=== PATIENT | male | born 1960 | race Caucasian/White ===

== ENCOUNTER 2018-05-23 10:30 | Outpatient (RCR) | payer OTHER, SELFPAY ==
--- NOTE | 2018-05-09 13:07 | HP.PTEVAL_ITS ---
Patient's Visit Information WALDO MURRAY is a 58 year old M referred to Physical Therapy by Joi Gill with a diagnosis of foot pain. Date of Evaluation: 05/09/18 Physical Therapist: George Whittaker, PT, - Visit Plan Frequency: 1x/Week Duration: 2 Weeks Plan: fit orthotics on next visit and edu pt on self and orthotic care - Subjective Subjective: Pt reports he has had orthotics for years. Pt reports if he doesnt wear orthotics, his LB becomes sore. Pt reports he has had diabetes for about 10 years. Pt reports the orthotics he is currently wearing are old and falling apart. Pt reports he is sore in B knees, and believes it is due to his orthotics wearing down. 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 Pt reports he is not limited with activity secondary to his feet. B foot pain is currently rated at 3/10 - Pain B feet Pain Intensity (Out of 10): 3 Pain Intensity Range: 3 - Objective Neuro: B LE sensation is WNL to light touch. B achilles reflex= 2/3. ROM: B ankle DF ROM is 5 degrees. MMT: B ankle s are 5/5 throughout. Gait: Pt ambulates with early pronation in stance phase. Foot posture: Pt stands with B midfoot and rearfoot pronation - Goals Goal 1:: fit orthotics appropriately on next visit Goal Time Frame: 1 Week - Rehabilitation Potential Physical Therapy Diagnosis: B foot pain secondary to pes planus Rehabilitation Potential: Excellent - Anticipated Interventions Patient/Client Instruction: Educate patient on: Condition, Plan of Care For the Purpose of:: To improve self management Orthotics: Shoe insert For the Purpose of:: To decrease pain Thank you for the opportunity to evaluate your patient. For Medicare and Medicare HMO plans, please review the plan of care and approve it. It will need to be FAXED BACK to us at [phone] for Medicare purposes. Please let me know if there are questions or concerns regarding this plan of care. Physician Signature: Date:
--- NOTE | 2018-05-23 10:46 | HP.PTDCSUM ---
HP - PT D/C Summary It has been my pleasure to treat WALDO MURRAY under orders from Joi Gill, for the diagnosis of foot pain for a total of 2 visit(s). Discharge Date: Please see the following information for a summary of their discharge status. - Subjective Subjective: Just need foot orthotics. No pain. Getting orthotics for long standing foot problems. Has low arches. - Pain B feet Pain Intensity (Out of 10): 3 - Objective Objective/Function: Good fit in shoe today and understands their use well as he has had a pair in the past. - Goals Goal 1:: fit orthotics appropriately on next visit - Plan Plan: D/C - D/C Information If there are questions or concerns regarding this patient's physical therapy, please feel free to call me at [phone]. Thank you for the referral of this patient. Sincerely, Binu Be, DPT, OC
== END 2018-05-23 19:00 | disposition home or self-care (01) ==
LOC: PT 10:30
PROVIDERS: Family Provider Internal Medicine; PCP Internal Medicine; Referring Provider Internal Medicine; Visit Provider Internal Medicine
DX: E11.9 Type 2 diabetes mellitus without complications (principal); M72.2 Plantar fascial fibromatosis
CPT/HCPCS: 97161; 97760; 97763

== ENCOUNTER 2018-10-23 23:52 | Inpatient (IN) | payer OTHER, SELFPAY ==
[2018-10-23 23:53] VITALS: BP 158/102; PULSE 77; RESP 18; TEMP 36.3; O2SAT 96; BMI 38.7
--- NOTE | 2018-10-23 23:57 | EKG12_ITS ---
Test Reason : CP Blood Pressure : / mmHG Vent. Rate : 076 BPM Atrial Rate : 076 BPM P-R Int : 152 ms QRS Dur : 098 ms QT Int : 370 ms P-R-T Axes : 025 -30 009 degrees QTc Int : 416 ms Sinus rhythm with occasional Premature ventricular complexes Left axis deviation Voltage criteria for left ventricular hypertrophy Nonspecific ST abnormality Abnormal ECG Confirmed by NELIA HAILE, JAYY ([id number]), photo editor WILBERT ZARAGOZA ([id number]) on 10/25/2018 8:22:52 AM Referred By: Gladys Marin Confirmed By:JAYY PICKENS MD
[2018-10-24] VITALS (35 sets, daily range): BP systolic 103–167; BP diastolic 73–106; PULSE 68–778; RESP 10–25; TEMP 36.3–36.8; O2SAT 96–100; BMI 36.8; BMI 36.9
--- NOTE | 2018-10-24 | RAD_ITS ---
STUDY: X-RAY CHEST REASON FOR EXAM: Male, 58 years old. Chest pain TECHNIQUE: Frontal view COMPARISON: None. FINDINGS: The lungs are clear and expanded. There is no demonstrated pleural abnormality. Normal size heart. Normal mediastinum and brenda. Normal visualized pulmonary arteries. Normal visualized aortic arch and descending thoracic aorta. Normal visualized thoracic spine. Normal visualized ribs, clavicles, and shoulders. There is no demonstrated abnormality of the visualized soft tissue structures of the upper abdomen. RAD/Chest 1 View (Portable) IMPRESSION: Normal x-ray examination of the chest. Electronically Signed: Himanshu Cheema MD at 1:18 EDT , Service support ,
[2018-10-24 00:18] LABS: Absolute Lymphocyte Count 3.32 X10^3/ul (0.83-4.51); Absolute Neutrophil Count 7.9 X10^3/uL (2.0-7.7); Basophil# 0.06 X10^3/uL; Basophil% 0.5 % (0-1); Eosinophils% 2.4 % (0-5); Hematocrit 42.3 % (40-54); Hemoglobin 13.3 g/dl (13.0-16.5); Lymphocyte # 3.32 X10^3/ul (4.0); Lymphocyte % 26.5 % (19-41); Mean Corp Hgb Conc 31.4 g/gl (32-36); Mean Corpuscular Volume 76.4 fL (80-94); Mean Platelet Vol. 10.1 fl (6.2-12.0); Monocyte# 0.96 X10^3/uL; Monocyte% 7.7 % (0-10); Neutrophil # 7.88 X10^3/uL (2.7-7.7); Neutrophil % 62.7 % (47-70); Platelet Count 372 K/mm3 (150-450); Red Blood Count 5.54 M/mm3 (4.6-6.2); White Blood Count 12.5 K/mm3 (4.4-11.0)
[2018-10-24 00:21] LABS: POSITIVE COUNT NO; POSITIVE DIFFERENTIAL NO; POSITIVE MORPHOLOGY NO
--- NOTE | 2018-10-24 00:21 | EKG12_ITS ---
Test Reason : CP Blood Pressure : / mmHG Vent. Rate : 070 BPM Atrial Rate : 070 BPM P-R Int : 158 ms QRS Dur : 098 ms QT Int : 380 ms P-R-T Axes : 015 -29 -02 degrees QTc Int : 410 ms Normal sinus rhythm Voltage criteria for left ventricular hypertrophy Nonspecific ST abnormality Abnormal ECG Confirmed by NELIA HAILE, JAYY ([id number]), medical transcription editor WILBERT ZARAGOZA ([id number]) on 10/25/2018 8:23:10 AM Referred By: Gladys Marin Confirmed By:JAYY PICKENS MD
[2018-10-24 00:29] LABS: Anion Gap 9 (5-15); BUN 9 mg/dL (7-18); BUN/Creat Ratio 9.5 RATIO (10-20); Calcium,Total 9.2 mg/dL (8.5-10.1); Chloride 105 mmol/L (98-107); Creatinine, Serum 0.94 mg/dL (0.70-1.30); EST Glomerular Filtration Rate 88 mL/min (>60); Est Glom Filt Rate - Afr Amer 106 mL/min (>60); Glucose 130 mg/dL (74-106); Potassium 3.9 mmol/L (3.5-5.1); Sodium Level 138 mmol/L (136-145)
[2018-10-24] MEDS: Aspirin 81 MG TAB.CHEW 324 MG PO (00:35)
--- NOTE | 2018-10-24 01:08 | PCM.HP.STD ---
Problem List (1) ACS (acute coronary syndrome) Status: Acute (2) Obesity (BMI 30-39.9) Status: Chronic (3) Diabetes mellitus, type II Status: Chronic Qualifiers: Diabetes mellitus intermediate insulin use: without exterminator use Diabetes mellitus complication status: with unspecified complications Qualified Code(s): E11.8 - Type 2 diabetes mellitus with unspecified complications (4) GERD (gastroesophageal reflux disease) Status: Chronic Qualifiers: Esophagitis presence: esophagitis presence not specified Qualified Code(s): K21.9 - Gastro-esophageal reflux disease without esophagitis (5) Former tobacco use Status: Chronic History of Present Illness Date of Admission: 10/24/18 Chief Complaint: Chest pain The patient is a 58 y/o M w/ PMHx: Obesity, Diabetes mellitus type II, GERD, Former Tobacco use, Hx Colon CA s/p partial colectomy w/ ileostomy w/ reversal who presents to the [facility] ED on 10/24/18 with history of onset chest discomfort, pressure like sensation midsternal/right chest with radiation toward the back with stabbing sensation discomfort in his back over the last 2-3 weeks, worse with any exertion but onset at rest also with notable exertional dyspnea with onset on evening prior to ED presentation, ~ 45 minutes prior to arrival, similar symptoms however with radiation to BL UE paresthesias as well with notable dyspnea, nausea without emesis and diaphoresis. He notes the severity was initially 10 out of 10 but upon repeat evaluation rated the discomfort 2-3 out of 10. He states that over the last several months his diet and activity levels have decreased. Over the last 4 weeks he states because of discomfort which he felt initially was musculoskeletal he has been sleeping upright in his chair at night instead of in the bed. He also notes recent difficulties with erectile dysfunction. Work-up in the ED included T 97.4, heart rate 77, BP initially 158/102 with repeat 125/85, respiratory rate 18, 96% on room air, BC with WBC 12.5, hemoglobin 13.3, platelets 372 with left shift, BMP with glucose 130, troponin 0.277, EKG w/ elevated isolated in III with non-specific changes with similar repeat EKG, CXR w/ no acute cardiopulmonary findings. In the ED patient administered 324 mg p.o. aspirin x1, therapeutic Lovenox 120 mg subcu x1, Brilinta 180 mg p.o. x1, nitroglycerin sublingual regimen administered as well as morphine patient then transition to nitroglycerin drip. Dr. Miranda consulted per ED. Past Medical History Past Medical History (Chronic Problems): Chronic Problems Obesity (BMI 30-39.9) (Chronic) Diabetes mellitus, type II (Chronic) RLS (restless legs syndrome) (Chronic) GERD (gastroesophageal reflux disease) (Chronic) Former tobacco use (Chronic) Allergies No Known Allergies Allergy (Verified 10/23/18 23:53) Home Medications: Ambulatory Orders Medication Instructions Recorded Ergocalciferol [Vitamin D] 50,000 mg PO QWEEK 10/24/18 Latanoprost 0.005 drop EACH EYE QHS 10/24/18 Metformin HCl [Glucophage] 500 mg PO BIDCM 10/24/18 Multivitamin [Multiple Vitamins] 1 each PO DAILY 10/24/18 Pantoprazole Sodium [Protonix] 40 mg PO DAILY 10/24/18 Surgical History: - - Partial colectomy with ileostomy with reversal, postsurgical hernia repair. Psychiatric History: No pertinent psych hx Lives: Spouse/ Significant Other Smoking Status: Former smoker - She quit nearly 30 years prior 3 prior to this cigarette tobacco usage. Tobacco Use: Non-smoker Alcohol: Occasional Drugs: None - *Family History Maternal History Items: - - Patient notes a maternal family history of hypertension well with autoimmune hepatitis. Paternal History Items: Unknown - She notes that he does not know his paternal family history. Review of Systems Constitutional: Reports: Malaise, Weakness, Fatigue. Denies: Chills, Fever, Weight Change HEENT: Denies: Head Aches, Sinus Congestion, Sinus Drainage Cardiovascular: Reports: Chest Pain, Chest Pressure. Denies: Chest Tightness, Heaviness, Light Headedness, Orthopnea, Palpitations, Syncope Respiratory: Reports: Shortness of Breath, Shortness of breath at rest, Shortness of breath upon exertion. Denies: Cough, Sputum production Gastrointestinal: Reports: Nausea. Denies: Abdominal Pain, Vomiting Genitourinary: Denies: Dysuria Musculoskeletal: Reports: Back Pain, Joint Pain, Neck Pain, Shoulder Pain. Denies: Joint Tenderness Skin: Denies: Rash, Wounds Neurological: Denies: Numbness, Tingling, Focal weakness Psychiatric: Denies: Anxiety, Depression, Homicidal Ideations, Suicidal Ideations Hematologic/ Lymphatic: Denies: Easy Bruising, Easy Bleeding VTE Information - Inpt Only VTE Present on Admission: No VTE Mechan Device Prophylaxis: SCD's VTE Pharm Prophylaxis ordered?: Yes Patient Problems: Active and Suspected Problems ACS (acute coronary syndrome) (Acute) Subjective: Seated upright in ED bed, notes chest discomfort has improved since presentation. Objective: Physical Examination: General: awake, alert, oriented x 3 and cooperative, seated upright in ED bed, fatigued appearance, chest discomfort is improved since initial presentation. Skin: normal color, turgor, no icterus, cyanosis. HEENT: AT/NC, EOMI, PERRLA, only dry MM, no carotid bruits or JVD noted. Lungs: CTA bilaterally, moderate effort, mild decrease BL bases, no rales, ronchi or wheezing. Heart: Regular rate and rhythm; no gallop, rub audible. Abdomen: soft, obese, NTTP, ND, normal BS, no HSM. Extremities: no cyanosis, clubbing, or edema. Neurological: patient awake, alert, oriented x 3; cognitive function intact; pupils equally reactive to light and accomodation; cranial nerves II-XII grossly normal, moving all 4 extremities, no focal deficits, strength moderately to severely globally decreased secondary to acute presentation. Psychiatric: affect appears fatigued, mildly anxious, no acute evidence of depressive feelings. - Physical Exam Vital Signs Temp Pulse Resp BP Pulse Ox 97.4 F L 90 18 125/85 H 96 10/23/18 23:53 10/24/18 00:41 10/23/18 23:53 10/24/18 01:00 10/24/18 00:36 Oxygen Delivery Method Room Air Weight: 269 lb 12.8 oz Body Mass Index (BMI) 38.7 Laboratory Tests Past 24 Hrs 10/24/18 10/24/18 00:05 00:05 WBC 12.5 H RBC 5.54 Hgb 13.3 Hct 42.3 MCV 76.4 L MCH 24.0 L MCHC 31.4 L RDW 16.0 H RDW Differential 44.0 H Plt Count 372 MPV 10.1 Immature Gran % (Auto) 0.200 Neut % (Auto) 62.7 Lymph % (Auto) 26.5 Ward % (Auto) 7.7 Eos % (Auto) 2.4 Baso % (Auto) 0.5 Absolute Neuts (auto) 7.9 H Absolute Lymphs (auto) 3.32 Total Counted Not Reportable Sodium 138 Potassium 3.9 Chloride 105 Carbon Dioxide 24.0 Anion Gap 9 BUN 9 Creatinine 0.94 Estim Creat Clear Calc 90.60 Est GFR (MDRD) Af Amer 106 Est GFR (MDRD) Non-Af 88 BUN/Creatinine Ratio 9.5 L Glucose 130 H Calcium 9.2 Troponin I 0.277 H Assessment/Plan All Active Problems ACS (acute coronary syndrome) (Acute) The patient is a 58 y/o M w/ PMHx: Obesity, Diabetes mellitus type II, GERD, Former Tobacco use, Hx Colon CA s/p partial colectomy w/ ileostomy w/ reversal who presents to the [facility] ED on 10/24/18 with history of onset chest discomfort, pressure like sensation midsternal/right chest with radiation toward the back with stabbing sensation discomfort in his back over the last 2-3 weeks, worse with any exertion but onset at rest also with notable exertional dyspnea with onset on evening prior to ED presentation, ~ 45 minutes prior to arrival, similar symptoms however with radiation to BL UE paresthesias as well with notable dyspnea, nausea without emesis and diaphoresis. (1) Chest Pain secondary to ACS, NSTEMI: Work-up in the ED included T 97.4, heart rate 77, BP initially 158/102 with repeat 125/85, respiratory rate 18, 96% on room air, CBC with WBC 12.5, hemoglobin 13.3, platelets 372 with left shift, BMP with glucose 130, troponin 0.277, EKG w/ elevated isolated in III with non-specific changes with similar repeat EKG, CXR w/ no acute cardiopulmonary findings. In the ED patient administered 324 mg p.o. aspirin x1, therapeutic Lovenox 120 mg subcu x1, Brilinta 180 mg p.o. x1, nitroglycerin sublingual regimen administered as well as morphine patient then transition to nitroglycerin drip. Dr. Miranda consulted per ED. Will admit to PCU, maintain on a monitored bed, continue serial cardiac enzymes and EKGs. Obtain magnesium level upon admission. Continue therapeutic lovenox. Continue medical management w/ asa, high dose statin w/ AM FLP. Cardiology consulted, plan for cardiac catheterization. Maintain NPO after midnight. ASA, morphine. Continued on NG drip per cardiology request. (2) Diabetes mellitus type II: Hold oral home regimen, heme globin A1c pending, n.p.o. status currently but resume ADA once appropriate, accu checks w/ ISS, nutrition consultation for education and teaching.. (3) Obesity: Weight loss and lifestyle changes encouraged, nutrition consulted. (4) History of colon cancer: That is post partial colectomy with ileostomy with eventual reversal, originally diagnosed in June 2017, remission. (5) Former tobacco use: Encouraged continued tobacco cessation. (6) GERD: PPI. (7) DVT Prophylaxis: SCDs, therapeutic lovenox. Code Visit Inpatient E&M: 50334 Init Hosp L3
[2018-10-24] MEDS: Morphine 4 MG/ML Syringe IV (01:13)
[2018-10-24] MEDS: Ondansetron 4 MG/2 ML Vial IV (01:14)
--- NOTE | 2018-10-24 01:14 | ED.VISSUMM ---
- ER Visit Summary Date of Service: 10/24/18 Chief Complaint: Chest pain History of Present Illness: The patient is a 58 M who presents with chest pain. His current episode began 1-1-1/2 hours before presentation. He describes it as a heaviness in the center of the chest radiating through to the back. It was 10 out of 10 at home but is currently 4 out of 10. No exacerbating or relieving factors. He has noticed intermittent similar chest pain over the last 2 weeks. This usually lasts 1-1/2 hours. He has also had some dyspnea on exertion. Tonight his pain was worse and he also had diaphoresis nausea and numbness in both arms. He has no known history of coronary disease. He is diabetic. Physical Examination: Initial blood pressure 158/102 vitals otherwise unremarkable No distress Heart regular rate and rhythm Lungs are clear Abdomen soft Extremities nontender symmetric palpable radial pulses Test Results: EKG shows sinus rhythm with a PVC. There are nonspecific ST changes. There is slight isolated elevation in lead III with biphasic T wave in lead III. He does not have EKG changes definitive for STEMI. His repeat EKG is unchanged does not show progression. It is notable for troponin of 0.277. Chest x-ray shows no acute disease. Emergency Department Course and Treatment: Patient was given aspirin and sublingual nitroglycerin. He really had no change in symptoms but his pain remains mild. His symptoms are certainly concerning. I spoke to cardiology photonics engineering technologist who also recommended Brilinta subcutaneous Lovenox and nitroglycerin infusion. Patient was discussed with the hospitalist and admitted. Treatment Plan: [] Disposition: Admit Impression: NSTEMI This note was generated with [employer] dictation software. It may contain incorrect words, spelling, and punctuation that were not noted in review of the chart prior to signing ED Disposition - Plan for ED Patient: Referrals: Joi Gill MD [Primary Care Provider] -
--- NOTE | 2018-10-24 01:17 | ED.DCSUM_ITS ---
- ER Visit Summary Date of Service: 10/24/18 Chief Complaint: Chest pain History of Present Illness: The patient is a 58 M who presents with chest pain. His current episode began 1-1-1/2 hours before presentation. He describes it as a heaviness in the center of the chest radiating through to the back. It was 10 out of 10 at home but is currently 4 out of 10. No exacerbating or relieving factors. He has noticed intermittent similar chest pain over the last 2 weeks. This usually lasts 1-1/2 hours. He has also had some dyspnea on exertion. Tonight his pain was worse and he also had diaphoresis nausea and numbness in both arms. He has no known history of coronary disease. He is diabetic. Physical Examination: Initial blood pressure 158/102 vitals otherwise unremarkable No distress Heart regular rate and rhythm Lungs are clear Abdomen soft Extremities nontender symmetric palpable radial pulses Test Results: EKG shows sinus rhythm with a PVC. There are nonspecific ST changes. There is slight isolated elevation in lead III with biphasic T wave in lead III. He does not have EKG changes definitive for STEMI. His repeat EKG is unchanged does not show progression. It is notable for troponin of 0.277. Chest x-ray shows no acute disease. Emergency Department Course and Treatment: Patient was given aspirin and sublingual nitroglycerin. He really had no change in symptoms but his pain remains mild. His symptoms are certainly concerning. I spoke to cardiology mortgage operations manager who also recommended Brilinta subcutaneous Lovenox and nitroglycerin infusion. Patient was discussed with the hospitalist and admitted. Treatment Plan: [] Disposition: Admit Impression: NSTEMI This note was generated with [employer] dictation software. It may contain incorrect words, spelling, and punctuation that were not noted in review of the chart prior to signing ED Disposition - Plan for ED Patient: Referrals: Joi Gill MD [Primary Care Provider] -
[2018-10-24] MEDS: TICAGRELOR 90 MG TABLET 180 MG PO (01:25)
--- NOTE | 2018-10-24 02:00 | ED.RN ---
pt concerned with receiving lovenox in abd d/t massive hernia surgery with mesh. discussed with darnell from pharmacy, no other alternatives, discussed with Dr. Cosme as Dr. Kuhn was unavailable and he suggested inner thigh or buttocks.
[2018-10-24] MEDS: Enoxaparin 120 MG/0.8 ML Syringe SC (02:02)
--- NOTE | 2018-10-24 02:26 | EKG12_ITS ---
Test Reason : POST PCI Blood Pressure : / mmHG Vent. Rate : 065 BPM Atrial Rate : 065 BPM P-R Int : 154 ms QRS Dur : 096 ms QT Int : 396 ms P-R-T Axes : 016 -28 -08 degrees QTc Int : 411 ms Normal sinus rhythm Normal ECG When compared with ECG of 24-OCT-2018 05:33, MANUAL COMPARISON REQUIRED, DATA IS UNCONFIRMED Confirmed by TIMA GUERRERO ([id number]), makeup editor JESSICA PIPER ([id number]) on 10/28/2018 5:10:26 PM Referred By: Gladys Marin Confirmed By:TIMA GUERRERO
--- NOTE | 2018-10-24 02:26 | ECHOCS_ITS ---
Reason For Study: CAD/ASHD Procedure This was a 2D Doppler, Color Flow transthoracic echocardiogram. Exam performed portable in patient room. Left Ventricle Mild concentric left ventricular hypertrophy. The estimated ejection fraction is 65 %. Stage 1 diastolic dysfunction. No regional wall motion abnormalities noted. Right Ventricle Normal size and thickness. Normal systolic function. Atria Normal left atrium. Normal right atrium. Normal atrial septum. Mitral Valve The mitral valve is structurally normal. No prolapse or stenosis seen. Tricuspid Valve The tricuspid valve is not well visualized. Unable to estimate RV systolic pressure due to inadequate jet, pulmonary artery pressure probably normal. Aortic Valve Normal aortic valve. Mild focal aortic valve thickening. There is no aortic stenosis. Pulmonic Valve The pulmonic valve is not well visualized. Great Vessels Normal aortic root. Normal arch. Normal inferior vena cava. Inferior vena cava collapse with sniff. Pericardium/Pleural No pericardial effusion. Medication Diluted definity 3.5ml given slow IV push to enhance endocardial definition. MMode/2D Measurements & Calculations LVIDd: 6.0 cm IVSd: 1.2 cm Ao root diam: 3.7 cm LVIDs: 4.4 cm LVPWd: 1.3 cm FS: 26.3 % LAV(MOD-bp): 58.0 ml LA A4 area: 18.3 cm2 LA dimension(2D): 3.8 cm LAV(MOD-bp) Indexed: 24.5 ml/m2 LAV(MOD-sp2): 62.3 ml LAV(MOD-sp4): 54.0 ml RA A4 area: 16.9 cm2 Doppler Measurements & Calculations MV E max russ: 62.5 cm/sec Lat Peak E' Russ: 13.2 cm/sec Med Peak E' Russ: 6.3 cm/sec MV A max russ: 78.6 cm/sec E/E' lat: 4.8 E/E' med: 9.9 MV E/A: 0.80 Ao V2 max: 141.4 cm/sec LV V1 max: 93.2 cm/sec PA V2 max: 96.2 cm/sec Ao max P.0 mmHg LV V1 max P.5 mmHg Interpretation Summary The estimated ejection fraction is 65 %. Stage 1 diastolic dysfunction. Unable to estimate RV systolic pressure due to inadequate jet, pulmonary artery pressure probably normal. The study was technically difficult. Contrast injection was performed. Ordering Physician: Gladys Marin Referring Physician: Gladys Gill Performed By: Oma Stewart RDCS, RVT
[2018-10-24 02:43] LABS: Magnesium 2.2 mg/dL (1.6-2.6)
[2018-10-24] MEDS: 0.9% Normal Saline 1,000 ML 125 ML IV (03:12)
[2018-10-24 06:14] LABS: Hematocrit 38.5 % (40-54); Mean Corp Hgb Conc 31.2 g/gl (32-36); Mean Corpuscular Hgb 24.1 pg (27.0-32.0); Mean Corpuscular Volume 77.3 fL (80-94); Mean Platelet Vol. 10.1 fl (6.2-12.0); Platelet Count 342 K/mm3 (150-450); RBC Distribution Width CV 16.1 % (11.6-14.6); RBC Distribution Width SD 44.5 fl (35.1-43.9); Red Blood Count 4.98 M/mm3 (4.6-6.2)
[2018-10-24 06:20] LABS: Scan Indicated on CBC? Y/N NO
[2018-10-24 06:23] LABS: Partial Thromboplast Time 42.2 Seconds (24.1-36.2)
[2018-10-24 06:34] LABS: International Normalized Ratio 1.1; Prothrombin Time (Protime)PT. 13.7 SECONDS (11.7-14.9)
[2018-10-24] MEDS: Aspirin E.C. 81 MG Tablet PO (06:36)
[2018-10-24 06:48] LABS: ALB/GLOB Ratio 0.9 RATIO (0.9-2.4); AST(SGOT) 38 U/L (15-37); Alanine Aminotransfer ALT/SGPT 37 U/L (16-61); Albumin, Serum 3.3 g/dL (3.2-5.0); Alkaline Phosphatase 80 U/L (45-117); Anion Gap 10 (5-15); BUN 10 mg/dL (7-18); BUN/Creat Ratio 10.3 RATIO (10-20); Calcium,Total 8.7 mg/dL (8.5-10.1); Chloride 106 mmol/L (98-107); Cholesterol 185 mg/dL (200); Creatinine, Serum 0.98 mg/dL (0.70-1.30); EST Glomerular Filtration Rate 84 mL/min (>60); Est Glom Filt Rate - Afr Amer 102 mL/min (>60); Estimated Creatinine Clearance 89.64 ml/min; Globulin 3.5 g/dL (2.2-4.2); Glucose 124 mg/dL (74-106); High Density Lipoprotein 42 mg/dL; Potassium 4.6 mmol/L (3.5-5.1); Protein, Total 6.8 g/dL (6.4-8.2); Triglycerides 155 mg/dL; Very Low Density Lipoprotein 31 mg/dL (5-40)
--- NOTE | 2018-10-24 06:50 | PCM.CONS.C ---
Reason for Consult Date of Consultation: 10/24/18 Reason for Consultation: Chest discomfort History of Present Illness: The patient is a 58 year old M with no past cardiac history who has been having chest discomfort which she says has been localized for the last few months. Yesterday he started experiencing more chest discomfort associated with diaphoresis and nausea. It was significant enough and across his chest that he decided to present to the emergency room. In the emergency room he had questionable EKG changes as well as mildly elevated troponin and I was called for further evaluation and management. He has had no previous dizziness or diaphoresis no near syncope or syncope he has not had any stress testing in the past. He says that there was previously not an exertional component to it but he has been fatigued. He is currently pain-free. [] Past Medical History Allergies/Adverse Reactions: Allergies No Known Allergies Allergy (Verified 10/23/18 23:53) Home Medications: Ambulatory Orders Medication Instructions Recorded Ergocalciferol [Vitamin D] 50,000 mg PO QWEEK 10/24/18 Latanoprost 0.005 drop EACH EYE QHS 10/24/18 Metformin HCl [Glucophage] 500 mg PO BIDCM 10/24/18 Multivitamin [Multiple Vitamins] 1 each PO DAILY 10/24/18 Pantoprazole Sodium [Protonix] 40 mg PO DAILY 10/24/18 Past Medical History (Chronic Problems): Chronic Problems Obesity (BMI 30-39.9) (Chronic) Diabetes mellitus, type II (Chronic) RLS (restless legs syndrome) (Chronic) GERD (gastroesophageal reflux disease) (Chronic) Former tobacco use (Chronic) Surgical History: - - Partial colectomy with ileostomy with reversal, postsurgical hernia repair. Psychiatric History: No pertinent psych hx - *Family History Maternal History Items: - - Patient notes a maternal family history of hypertension well with autoimmune hepatitis. Paternal History Items: Unknown - She notes that he does not know his paternal family history. Lives: Spouse/ Significant Other Smoking Status: Former smoker - She quit nearly 30 years prior 3 prior to this cigarette tobacco usage. Tobacco Use: Non-smoker Alcohol: Occasional Drugs: None Review of Systems - Review of Systems General: Denies: Fever, Night Sweats, Fatigue HEENT: Denies: Vision Change Cardiovascular: Reports: Chest Discomfort, Chest Discomfort at Rest. Denies: Shortness of Breath, Orthopnea, PND, Peripheral Edema, Palpitations, Lightheadedness, Dizziness, Near Syncope, Syncope Respiratory: Denies: Cough, Sputum Production, Hemoptysis Gastrointestinal: Denies: Hematemesis, Hematochezia, Melena Genitourinary: Denies: Dysuria, Hematuria Skin: Denies: Rash Neurological: Denies: Dizziness Psychiatric: Denies: Anxiety Endocrine: Denies: Unexplained Weight Loss Hematologic/ Lymphatic: Denies: Anemia Subjectve: Pleasant gentleman in no apparent distress Objective: Vital Signs Temp Pulse Resp BP Pulse Ox 97.9 F 78 19 H 126/74 H 98 10/24/18 03:00 10/24/18 05:00 10/24/18 05:00 10/24/18 05:00 10/24/18 05:00 Oxygen Flow Rate (L/min) 2 Oxygen Delivery Method Nasal Cannula Weight: 264 lb 8.875 oz Body Mass Index (BMI) 36.8 Intake and Output for Last 24 Hours 10/22/18 10/23/18 10/24/18 23:59 23:59 23:59 Intake Total 429.6 / 429.6 Balance 429.6 / 429.6 General: Awake, Alert, Oriented x 3 HEENT: PERRL, EOMI, Sclera Non Icteric Neck: Supple, Good ROM, No Lymph Node Enlargement Lungs: Clear to auscultation Cardiovascular: Regular Rhythm, Normal S1, Normal S2, No Murmurs, No Rubs, No Gallops Vascular: No Carotid Bruits, Normal Femoral Pulses, Normal Radial Pulses, Normal Dorsalis Pedal Pulse, Normal Posterior Tibial Pulses Abdomen: Bowel Sounds Present, Soft, Non Tender, No HSM, No Organomegaly, Obese Extremities: No Cyanosis, No Clubbing, No edema Musculoskeletal: No Erythema Skin: No Rashes Lymphatic: No Lymph Node Enlargement Neurological: No Focal Motor or Sensory Deficit Psych/Mental Status: Appropriate 10/24/18 00:05: WBC 12.5 H, RBC 5.54, Hgb 13.3, Hct 42.3, MCV 76.4 L, MCH 24.0 L, MCHC 31.4 L, RDW 16.0 H, RDW Differential 44.0 H, Plt Count 372, MPV 10.1, Immature Gran % (Auto) 0.200, Neut % (Auto) 62.7, Lymph % (Auto) 26.5, [place] % (Auto) 7.7, Eos % (Auto) 2.4, Baso % (Auto) 0.5, Absolute Neuts (auto) 7.9 H, Total Counted Not Reportable 10/24/18 00:05: Sodium 138, Potassium 3.9, Chloride 105, Carbon Dioxide 24.0, Anion Gap 9, BUN 9, Creatinine 0.94, Est GFR (MDRD) Af Amer 106, Est GFR (MDRD) Non-Af 88, BUN/Creatinine Ratio 9.5 L, Glucose 130 H, Calcium 9.2, Troponin I 0.277 H 10/24/18 00:05: Magnesium 2.2 10/24/18 03:22: Troponin I 0.574 H 10/24/18 05:50: WBC 13.0 H, RBC 4.98, Hgb 12.0 L, Hct 38.5 L, MCV 77.3 L, MCH 24.1 L, MCHC 31.2 L, RDW 16.1 H, RDW Differential 44.5 H, Plt Count 342, MPV 10.1 10/24/18 05:50: Sodium 142, Potassium 4.6, Chloride 106, Carbon Dioxide 26.0, Anion Gap 10, BUN 10, Creatinine 0.98, Est GFR (MDRD) Af Amer 102, Est GFR (MDRD) Non-Af 84, BUN/Creatinine Ratio 10.3, Glucose 124 H, Calcium 8.7, Total Bilirubin 0.50, Troponin I 1.100 H*, Triglycerides 155, Cholesterol 185, LDL Cholesterol 112, VLDL Cholesterol 31, HDL Cholesterol 42 10/24/18 05:50: PT 13.7, INR 1.1, APTT 42.2 H Rhythm: EKG: Normal sinus rhythm with subtle ST change in lead III ECHO: Stress Test: Cardiac Cath: PCI: CT Surgery: Holter monitor: EPS: PPM: CXR: Chest CT Scan: Assessment/Plan 1. Non-ST elevation myocardial infarction Patient presents with chest discomfort with subtle EKG changes and has abnormal troponin qualifying as a non-ST elevation myocardial infarction. Would recommend aspirin Patient received Lovenox overnight High intensity statin Ticagrelor Cardiac catheterization this morning. The risk benefits and alternatives have been explained to him he understands and agrees to proceed. 2. Lipid status His lipid status appears to be borderline but with his diabetic status and his current enzyme ender would recommend high intensity statin Diet and exercise have also been emphasized. Thank you for allowing me to participate in the care of your patient. Please don't hesitate to call if any issues arise
--- NOTE | 2018-10-24 06:54 | CON.PCM_ITS ---
Reason for Consult Date of Consultation: 10/24/18 Reason for Consultation: Chest discomfort History of Present Illness: The patient is a 58 year old M with no past cardiac history who has been having chest discomfort which she says has been localized for the last few months. Yesterday he started experiencing more chest discomfort associated with diaphoresis and nausea. It was significant enough and across his chest that he decided to present to the emergency room. In the emergency room he had questionable EKG changes as well as mildly elevated troponin and I was called for further evaluation and management. He has had no previous dizziness or diaphoresis no near syncope or syncope he has not had any stress testing in the past. He says that there was previously not an exertional component to it but he has been fatigued. He is currently pain-free. [] Past Medical History Allergies/Adverse Reactions: Allergies No Known Allergies Allergy (Verified 10/23/18 23:53) Home Medications: Ambulatory Orders Medication Instructions Recorded Ergocalciferol [Vitamin D] 50,000 mg PO QWEEK 10/24/18 Latanoprost 0.005 drop EACH EYE QHS 10/24/18 Metformin HCl [Glucophage] 500 mg PO BIDCM 10/24/18 Multivitamin [Multiple Vitamins] 1 each PO DAILY 10/24/18 Pantoprazole Sodium [Protonix] 40 mg PO DAILY 10/24/18 Past Medical History (Chronic Problems): Chronic Problems Obesity (BMI 30-39.9) (Chronic) Diabetes mellitus, type II (Chronic) RLS (restless legs syndrome) (Chronic) GERD (gastroesophageal reflux disease) (Chronic) Former tobacco use (Chronic) Surgical History: - - Partial colectomy with ileostomy with reversal, postsurgical hernia repair. Psychiatric History: No pertinent psych hx - *Family History Maternal History Items: - - Patient notes a maternal family history of hypertension well with autoimmune hepatitis. Paternal History Items: Unknown - She notes that he does not know his paternal family history. Lives: Spouse/ Significant Other Smoking Status: Former smoker - She quit nearly 30 years prior 3 prior to this cigarette tobacco usage. Tobacco Use: Non-smoker Alcohol: Occasional Drugs: None Review of Systems - Review of Systems General: Denies: Fever, Night Sweats, Fatigue HEENT: Denies: Vision Change Cardiovascular: Reports: Chest Discomfort, Chest Discomfort at Rest. Denies: Shortness of Breath, Orthopnea, PND, Peripheral Edema, Palpitations, Lightheadedness, Dizziness, Near Syncope, Syncope Respiratory: Denies: Cough, Sputum Production, Hemoptysis Gastrointestinal: Denies: Hematemesis, Hematochezia, Melena Genitourinary: Denies: Dysuria, Hematuria Skin: Denies: Rash Neurological: Denies: Dizziness Psychiatric: Denies: Anxiety Endocrine: Denies: Unexplained Weight Loss Hematologic/ Lymphatic: Denies: Anemia Subjectve: Pleasant gentleman in no apparent distress Objective: Vital Signs Temp Pulse Resp BP Pulse Ox 97.9 F 78 19 H 126/74 H 98 10/24/18 03:00 10/24/18 05:00 10/24/18 05:00 10/24/18 05:00 10/24/18 05:00 Oxygen Flow Rate (L/min) 2 Oxygen Delivery Method Nasal Cannula Weight: 264 lb 8.875 oz Body Mass Index (BMI) 36.8 Intake and Output for Last 24 Hours 10/22/18 10/23/18 10/24/18 23:59 23:59 23:59 Intake Total 429.6 / 429.6 Balance 429.6 / 429.6 General: Awake, Alert, Oriented x 3 HEENT: PERRL, EOMI, Sclera Non Icteric Neck: Supple, Good ROM, No Lymph Node Enlargement Lungs: Clear to auscultation Cardiovascular: Regular Rhythm, Normal S1, Normal S2, No Murmurs, No Rubs, No Gallops Vascular: No Carotid Bruits, Normal Femoral Pulses, Normal Radial Pulses, Normal Dorsalis Pedal Pulse, Normal Posterior Tibial Pulses Abdomen: Bowel Sounds Present, Soft, Non Tender, No HSM, No Organomegaly, Obese Extremities: No Cyanosis, No Clubbing, No edema Musculoskeletal: No Erythema Skin: No Rashes Lymphatic: No Lymph Node Enlargement Neurological: No Focal Motor or Sensory Deficit Psych/Mental Status: Appropriate 10/24/18 00:05: WBC 12.5 H, RBC 5.54, Hgb 13.3, Hct 42.3, MCV 76.4 L, MCH 24.0 L , MCHC 31.4 L, RDW 16.0 H, RDW Differential 44.0 H, Plt Count 372, MPV 10.1, Immature Gran % (Auto) 0.200, Neut % (Auto) 62.7, Lymph % (Auto) 26.5, [place] % (Auto) 7.7, Eos % (Auto) 2.4, Baso % (Auto) 0.5, Absolute Neuts (auto) 7.9 H, Total Counted Not Reportable 10/24/18 00:05: Sodium 138, Potassium 3.9, Chloride 105, Carbon Dioxide 24.0, Anion Gap 9, BUN 9, Creatinine 0.94, Est GFR (MDRD) Af Amer 106, Est GFR (MDRD) Non-Af 88, BUN/Creatinine Ratio 9.5 L, Glucose 130 H, Calcium 9.2, Troponin I 0.277 H 10/24/18 00:05: Magnesium 2.2 10/24/18 03:22: Troponin I 0.574 H 10/24/18 05:50: WBC 13.0 H, RBC 4.98, Hgb 12.0 L, Hct 38.5 L, MCV 77.3 L, MCH 24.1 L, MCHC 31.2 L, RDW 16.1 H, RDW Differential 44.5 H, Plt Count 342, MPV 10.1 10/24/18 05:50: Sodium 142, Potassium 4.6, Chloride 106, Carbon Dioxide 26.0, Anion Gap 10, BUN 10, Creatinine 0.98, Est GFR (MDRD) Af Amer 102, Est GFR (MDRD) Non-Af 84, BUN/Creatinine Ratio 10.3, Glucose 124 H, Calcium 8.7, Total Bilirubin 0.50, Troponin I 1.100 H*, Triglycerides 155, Cholesterol 185, LDL Cholesterol 112, VLDL Cholesterol 31, HDL Cholesterol 42 10/24/18 05:50: PT 13.7, INR 1.1, APTT 42.2 H Rhythm: EKG: Normal sinus rhythm with subtle ST change in lead III ECHO: Stress Test: Cardiac Cath: PCI: CT Surgery: Holter monitor: EPS: PPM: CXR: Chest CT Scan: Assessment/Plan 1. Non-ST elevation myocardial infarction * Patient presents with chest discomfort with subtle EKG changes and has abnormal troponin qualifying as a non-ST elevation myocardial infarction. * Would recommend aspirin * Patient received Lovenox overnight * High intensity statin * Ticagrelor * Cardiac catheterization this morning. The risk benefits and alternatives have been explained to him he understands and agrees to proceed. * 2. Lipid status * His lipid status appears to be borderline but with his diabetic status and his current enzyme patten would recommend high intensity statin * Diet and exercise have also been emphasized. * Thank you for allowing me to participate in the care of your patient. Please don't hesitate to call if any issues arise
[2018-10-24 07:16] LABS: Bedside Glucose 123 mg/dL (70-110)
[2018-10-24 07:53] LABS: Hemoglobin A1c 7.4 % (4.2-6.3)
--- NOTE | 2018-10-24 08:50 | CL.D_ITS ---
Patient Name: WALDO MURRAY Study Date: 10/24/2018 Performing: Elmer Miranda MD Ht: 70.86 inches 180 cm : 1960 Wt: 264.55 lbs 120 kg Age: 58 Gender: male BSA: 2.37 PROCEDURE(S) PERFORMED [id number] W OR WO PTCA, SINGLE CORONARY ARTERY CLINICAL PROFILE AND INDICATIONS Indications: Suspected CAD Heart Failure: None CONCLUSIONS High-grade stenosis noted of the mid circumflex artery as well as of the third obtuse marginal branch . RECOMMENDATIONS Referred for immediate PCI DESCRIPTION OF PROCEDURE The patient arrived to the procedure lab. The risks and benefits of the procedure as well as a full d escription of our services here and current unavailability of surgical backup were fully explained to the patient and/or their significant other prior to the catheterization. The Timeout was completed, verifying the correct patient and procedure. The patient's procedural site was prepped and draped in the usual fashion. Local anesthetic was given subcutaneously to right groin region with Lidocaine 2%. Using a modified Seldinger technique, arterial access was obtained via the right femoral artery, a 5 Fr sheath was inserted. Left Coronary Artery selective angiography was performed in multiple views u sing a 5 Fr. JL4 catheter. Right Coronary Artery selective angiography was then performed in multiple views using a 5 Fr. 3DRC (Curt) catheter. Left Ventriculography was performed in ARIAS projection using a 5 Fr. Pigtail catheter. LV to AO pullback pressures were then recorded. CORONARY ANGIOGRAPHY DOMINANCE: Co- Dominant LEFT HEART ASSESSMENT Left Ventricular Ejection Fraction: by LV Gram 55 % Normal LV wall motion Normal Left Ventricular systolic function LEFT MAIN: Angiographically normal LEFT ANTERIOR DECENDING ARTERY: Mild luminal irregularities less than 30% CIRCUMFLEX ARTERY: MID CIRC: 90 % Stenosis OM 3: Mid - 75 % Stenosis RIGHT CORONARY ARTERY: Mild luminal irregularities less than 30% COMPLICATIONS PROCEDURE MEDICATIONS Versed 1 mg IV Fentanyl 50 mcg IV Versed 1 mg IV Oxygen: 2 L/min via nasal cannula Heparin 6000 unit(s) IV 10/24/2018 08:46:49 Nitro glycerin 25mg / 250ml D5W @ 10 mcg/min IV started on floor before arriving to the laboratory equipment cleaner 10/24 08:16:19 Nitro glycerin 25mg / 250ml D5W @ 5 mcg/min (decreased rate) 10/24/2018 08:30:48 Nitro 200 mcg IC 10/24/2018 08:48:05 IV Bolus: .9 NaCl ml total 10/24/2018 08:47:46 SUMMARY OF HEMODYNAMIC DATA Time AIR REST ECG 08:13:55 AO 106/76 (89) SA 08:33:00 LV 111/12, 18 08:39:22 LV 122/7, 14 08:39:29 LV 123/-1, 21 08:40:22 LV 123/0, 23 08:40:29 LVp 123/0, 22 08:40:32 AOp 119/66 (88) 08:40:37 Signed By Elmer Miranda MD On 10/24/2018 08:49:37 Elmer Miranda MD
--- NOTE | 2018-10-24 08:54 | NURSING ---
Called report to Melissa TOMLINSON in ICU
--- NOTE | 2018-10-24 08:54 | CASEMGMT ---
According to [employer] website, the following are in-network tertiary facilities: [facility], [place], [facility], [facility], [facility], [facility], and . Danni TOMLINSON CM
[2018-10-24 09:35] LABS: ACT Activated Clotting Time 191 sec (74-137)
--- NOTE | 2018-10-24 09:44 | CL.I_ITS ---
Patient Name: WALDO MURRAY Study Date: 10/24/2018 Performing: Everette Ray MD Ht: 70.87 inches 180 cm : 1960 Wt: 264.55 lbs 120 kg Age: 58 Gender: male BSA: 2.37 PROCEDURE(S) PERFORMED [id number] W OR WO PTCA, SINGLE CORONARY ARTERY [id number] W OR WO PTCA, EACH ADD'L ARTERY, SAME MAJOR CLINICAL PROFILE AND CO-MORBIDITIES Patient presents with NSTEMI for urgent cardiac cath Indications: Suspected CAD, ACS <= 24 hrs, New Onset Angina <= 2 months, Suspected CAD Heart Failure: None Stress/Imaging Stress/Image Study Performed: No Angina Classification Anginal Classification w/in 2 Weeks: CCS IV CAD Presentations: Unstable angina. Non-STEMI. Symptom onset Date/Time: 10/23/2018 Time Not Availa ble Comorbidities/Risk Factors: Hypertension Dyslipidemia Diabetes Mellitus: Diabetes Therapy: Insulin CONCLUSIONS Successful PTCA/PARISH mid LCX with a 2.5 x 38 Promus Synergy, post dilated with a 3.0 x 8 NC Balloon, a nd a 3.5 x 8 NC Balloon in proximal 1/3 of stent; 85%-->0%, no dissection. Successful PTCA/PARISH of mid OM#3 with a 2.5 x 20 Promus Synergy; 75%-->0%, no dissection. RECOMMENDATIONS Highly recommend quitting all tobacco products Follow up with primary field rep Risk factor modification ASA Indefinitley Plavix for at least 12 months Routine post interventional care Refer for Outpatient Cardiac Rehab Manual sheath removal per protocol Follow up with Dr. Miranda Successful Mynx closure of RFA. DESCRIPTION OF PROCEDURE The patient arrived to the procedure lab. The risks and benefits of the procedure as well as a full d escription of our services here and current unavailability of surgical backup were fully explained to the patient and/or their significant other prior to the catheterization. The Timeout was completed, verifying the correct patient and procedure. The patient's procedural site was prepped and draped in the usual fashion. Local anesthetic was given subcutaneously to right groin region with Lidocaine 2% Using a modified Seldinger technique,arterial access was obtained via the right femoral artery, a 5Fr sheath was inserted. Left Coronary Artery selective angiography was performed in multiple views marian ibarra 5 Fr. JL4 catheter. Right Coronary Artery selective angiography was then performed in multiple vi ews using a 5 Fr. 3DRC (Curt) catheter. Left Ventriculography was performed in ARIAS projection usi ng a 5 Fr. Pigtail catheter. LV to AO pullback pressures were then recorded.The images were reviewed and options discussed. A decision was then made to proceed with an Intervention, IVUS o r other adjunct procedure. Arterial sheath was exchanged for a 6 Fr 45cm Sheath. EBU 3.75 Guide catheter was inserted and en gaged into the LCA. BMW [place]ber[place] (1) Guide wire was advanced to the Circumflex. Emerge 2.0 x 8 Ballo on catheter was inserted. Balloon catheter was advanced across lesion in the Mid Circumflex PTCA ball oon inflated at 8 atms for 10 secs. PTCA balloon inflated at 8 atms for 11 secs. Angiogram performed post balloon dilatation. Synergy 2.5 x 38 Drug Eluting stent was inserted. Drug Eluting stent was adv anced across the lesion in the circumflex, mid. Angiogram performed pre stent deployment. Angiogram p erformed post stent deployment. NC Emerge 3.0 x 8 Balloon catheter was inserted. Balloon catheter was advanced across lesion in the circumflex, mid. Angiogram performed post balloon dilatation. NC Emerg e 3.5 x 8 Balloon catheter was inserted. Balloon catheter was advanced across lesion in the circumfle x, mid. Angiogram performed post balloon dilatation. NC Emerge 3.0 x 8 Balloon catheter was reinserted Balloon catheter was advanced across lesion in the circumflex, mid. Angiogram performe d post balloon dilatation. [place] BMW (2) Guide wire was advanced to the 3rd OM. Synergy 2.5 x 20 Drug Eluting stent was inserted. Drug Eluting stent was advanced across the lesion in the third obtus e marginal Angiogram performed pre stent deployment. Angiogram performed post stent deployment. Contr ast was injected through the sheath and the Right Iliac and Femoral artery were assessed for possible closure device. The arterial sheath was pulled and a Mynx closure device was deployed for hemostasi s INTERVENTION INFORMATION LESION SITE: Circumflex (Mid) Lesion Complexity: High/C, lesion at bifurcation: No, thrombus present: No, lesion length: 38 mm, cul prit lesion: Yes Pre Stenosis: 85 % Pre intervention KIM flow: 3 PROCEDURE: Drug Eluting Stent with pre and post dilatation Post Stenosis: 0 % Post intervention KIM flow: 3 Lesion Devices: Cook 6F 45cm Sheath Myrick .014 BMW Culbertson Straight 190cm Myrick .014 BMW [place] Straight 190cm Medtronic 6 Fr EBU3.75 100cm Guide Catheter Cam Sci Synergy MR PARISH 2.50x38 Cam Sci EMERGE MR 2.00x08 BALLOON Cam Sci NC EMERGE MR 3.00x08 BALLOON Cam Sci NC EMERGE MR 3.50x08 BALLOON LESION SITE: 3rd OM (Mid) Lesion Complexity: High/C, thrombus present: No, lesion at bifurcation: No, lesion length: 20 mm, cul prit lesion: No Pre Stenosis: 75 % Pre intervention KIM flow: 3 PROCEDURE: Drug Eluting Stent Post Stenosis: 0 % Post intervention KIM flow: 3 Lesion Devices: Cook 6F 45cm Sheath Myrick .014 BMW [place] Straight 190cm Myrick .014 BMW [place] Straight 190cm Cam Sci Synergy MR PARISH 2.50x20 COMPLICATIONS No Complications PROCEDURE MEDICATIONS Versed 1 mg IV Fentanyl 50 mcg IV Versed 1 mg IV Oxygen: 2 L/min via nasal cannula Heparin 6000 unit(s) IV 10/24/2018 08:46:49 Nitro glycerin 25mg / 250ml D5W @ 10 mcg/min IV started on floor before arriving to the research laboratory manager 10/24 08:16:19 Nitro glycerin 25mg / 250ml D5W @ 5 mcg/min (decreased rate) 10/24/2018 08:30:48 Nitro 200 mcg IC 10/24/2018 08:48:05 Nitro 200 mcg IC 10/24/2018 08:54:17 Nitro 200 mcg IC 10/24/2018 09:01:18 Nitro glycerin 25mg / 250ml D5W @ mcg/min discontinued 10/24/2018 09:08:51 Nitro 200 mcg IC 10/24/2018 09:15:18 IV Bolus: .9 NaCl 450 ml total 10/24/2018 08:47:46 SUMMARY OF HEMODYNAMIC DATA Time AIR REST ECG 08:13:55 AO 106/76 (89) SA 08:33:00 LV 111/12, 18 08:39:22 LV 122/7, 14 08:39:29 LV 123/-1, 21 08:40:22 LV 123/0, 23 08:40:29 LVp 123/0, 22 08:40:32 AOp 119/66 (88) 08:40:37 Signed By Everette Ray MD On 10/24/2018 09:43:23 Everette Ray MD
--- NOTE | 2018-10-24 09:57 | EKG12_ITS ---
Test Reason : AM EKG Blood Pressure : / mmHG Vent. Rate : 074 BPM Atrial Rate : 074 BPM P-R Int : 152 ms QRS Dur : 090 ms QT Int : 376 ms P-R-T Axes : 023 -31 000 degrees QTc Int : 417 ms Normal sinus rhythm Left axis deviation Voltage criteria for left ventricular hypertrophy Abnormal ECG When compared with ECG of 24-OCT-2018 00:27, MANUAL COMPARISON REQUIRED, DATA IS UNCONFIRMED Confirmed by TIMA GUERRERO ([id number]), loan expeditor JESSICA PIPER ([id number]) on 10/28/2018 5:14:43 PM Referred By: Gladys Marin Confirmed By:TIMA GUERRERO
[2018-10-24] MEDS: 0.9% Normal Saline 1,000 ML 150 ML IV (11:06)
[2018-10-24] MEDS: Lisinopril 5 MG Tablet PO (11:18)
[2018-10-24] MEDS: Metoprolol Tartrate 25 MG Tablet 12.5 MG PO ×2 (11:18→21:27)
[2018-10-24 11:26] LABS: Bedside Glucose 115 mg/dL (70-110)
--- NOTE | 2018-10-24 12:18 | CRPHASE1 ---
Patient Data/Charges Records And Information Manager:: Everette Ray Refer Phase II:: Yes Admit Date:: 10/24/18 Phase II Referral:: [facility] Start Phase II:: after follow up appt with cardiology Phase I Charge:: Level I - Education Risk Factors/Lifestyle Smoking Status: Former smoker - quit 30 years ago Second-Hand Smoke:: No Hx Diabetes Mellitus Type 2: Yes Hx Dyslipidemia: Yes Hx Obesity: Yes Height: 5 ft 11 in Weight:: 264 lb BMI: 36.8 Risk Factor for Sedentary Lifestyle: Highest Risk Laboratory Values: Cardiac Rehab Phase I Labs Hemoglobin A1c 7.4 % (4.2-6.3) H 10/24/18 03:22 Triglycerides 155 mg/dL (-199) 10/24/18 05:50 Cholesterol 185 mg/dL (200) 10/24/18 05:50 LDL Cholesterol 112 mg/dL (0-130) 10/24/18 05:50 HDL Cholesterol 42 mg/dL (40-) 10/24/18 05:50 Phase I Education Given On:: Isaban, Nutrition, Antiplatelet medication, CHF, Diabetes - Type II Issues Affecting Care:: None Comments:: Pt states he does not want to do CR. Info given to he, his and his mother and enc to do CR. Knowledge of Condition:: Yes Learning Preferences: Verbal, Written, Audio/Visual, Demonstration Medical/Surgical History CT:: Yes - NSTEMI Angina:: Yes Diabetes Type II:: Yes Dyslipidemia:: Yes GERD:: Yes Discharge/Home/Social Eval Marital Status: Patient Lives With::
--- NOTE | 2018-10-24 12:24 | CRPHASE1_ITS ---
Patient Data/Charges Childbirth And Infant Care Teacher:: Everette Ray Refer Phase II:: Yes Admit Date:: 10/24/18 Phase II Referral:: [facility] Start Phase II:: after follow up appt with cardiology Phase I Charge:: Level I - Education Risk Factors/Lifestyle Smoking Status: Former smoker - quit 30 years ago Second-Hand Smoke:: No Hx Diabetes Mellitus Type 2: Yes Hx Dyslipidemia: Yes Hx Obesity: Yes Height: 5 ft 11 in Weight:: 264 lb BMI: 36.8 Risk Factor for Sedentary Lifestyle: Highest Risk Laboratory Values: Cardiac Rehab Phase I Labs Hemoglobin A1c 7.4 % (4.2-6.3) H 10/24/18 03:22 Triglycerides 155 mg/dL (-199) 10/24/18 05:50 Cholesterol 185 mg/dL (200) 10/24/18 05:50 LDL Cholesterol 112 mg/dL (0-130) 10/24/18 05:50 HDL Cholesterol 42 mg/dL (40-) 10/24/18 05:50 Phase I Education Given On:: [place], Nutrition, Antiplatelet medication, CHF, Diabetes - Type II Issues Affecting Care:: None Comments:: Pt states he does not want to do CR. Info given to he, his and his mother and enc to do CR. Knowledge of Condition:: Yes Learning Preferences: Verbal, Written, Audio/Visual, Demonstration Medical/Surgical History OK:: Yes - NSTEMI Angina:: Yes Diabetes Type II:: Yes Dyslipidemia:: Yes GERD:: Yes Discharge/Home/Social Eval Marital Status: Patient Lives With::
--- NOTE | 2018-10-24 12:29 | CRPH1.INSTRU ---
General Education CAD and cardiac anatomy and function:: Patient communicates acknowledgment, Needs reinforcement Explanation of diagnoses and procedures:: Patient communicates acknowledgment, Needs reinforcement Sign/Symptoms of NC:: Patient communicates acknowledgment, Needs reinforcement Antiplatelet therapy: Patient communicates acknowledgment, Needs reinforcement Proper use of NTG-SL: Patient communicates acknowledgment, Needs reinforcement Emergency procedures and activation of EMS: Patient communicates acknowledgment, Needs reinforcement Compliance of all prescribed medications: Patient communicates acknowledgment, Needs reinforcement Smoking Patient Nicotine/Smoking Risk Factors Are:: Non-smoker - quit 30 years ago Recommendations Include:: Previous smoker; encourage continued cessation Nicotine/Smoking Response Code:: Patient communicates acknowledgment, Patient returns demonstration Dyslipidemia Patient Dyslipidemia Risk Factors Are:: Total Cholesterol, Triglycerides, HDL, LDL Recommendations Include:: Lipid profile provided, Reviewed NCEP/ATP guidelines, Therapeutic Lifestyle Change dietary guidelines Dyslipidemia Response Code:: Patient communicates acknowledgment, Needs reinforcement Overweight/Obesity Patient Overweight/Obesity Risk Factors Are:: Obesity - > or = 30 Recommendations Include:: Weight loss of 5-10%, Reduced calorie diet, Exercise 5-7 times/week Overweight/Obesity:: Patient communicates acknowledgment, Needs reinforcement Hypertension Recommendations Include:: BP <130/80 if diabetic, DASH dietary guidelines, Decrease/maintain normal body weight Hypertension:: Patient communicates acknowledgment, Needs reinforcement Heart Disease Heart Disease Response Code:: Patient communicates acknowledgment, Needs reinforcement Diabetes Date of HgbA1c:: 10/24/18 Recommendations Include:: Maintain fasting blood sugars 70-110 md/dL, Maintain HgbA1c of 6% or less, Monitor blood sugar as prescribed, Diabetic dietary guidelines, Decrease/maintain body weight Diabetes:: Patient communicates acknowledgment, Needs reinforcement Metabolic Syndrome Recommendations Include:: Patient is diabetic Metabolic Syndrome Response Code:: Not instructed Sedentary Patient Sedentary Risk Factors Are:: Lack of regular exercise Recommendations Include:: Aerobic exercise 5-7 times/week for 20-30 minutes continuously, Benefits of regular exercise, Discussed home walking program, Monitored Outpatient Cardiac Rehab Sedentary Response Code:: Patient communicates acknowledgment, Needs reinforcement Stress Patient Stress Risk Factors Are:: Patient denies stress as a risk factor Stress Response Code:: Patient communicates acknowledgment, Needs reinforcement - Pt states he does not want to do CR. Info given to he, his and his mother and enc to do CR.
--- NOTE | 2018-10-24 14:12 | CASEMGMT ---
RN MIKE Assessment Presentation: ACS. PTCA mid LCX and Mid OM#3 Intro role of CM and purpose of RN CM assessment to patient and his in room. Demographics/ PCP/Pharmacy verified and are correct. Discussed possible dc needs. See Prescription benefit note. PCP: Dr. Gill Specialists: Dr. Miranda Preferred Pharmacy: [facility] Insurance: [employer] Prescription Benefit: yes, however policy has high deductible and includes the medications per . Anticipate pt will need Brilinta on dc. RN MIKE reviewed good rx and gave pt information for reduced listed cost of ~$395 @ [facility]. Good rx saving card given. -Brilinta savings card will cover copay up to $200, anticipate pt will have copay around $195 for first month until deductible is met, then $5 with savings card. Explained to patient and his . They are agreeable and can pay this first month. Dr. Rodriguez updated also. LNOK: , Muriel Zee Prior level of function: independent Living Arrangements: Lives independently with his . Transportation: pt or can drive. DME: No DME including no oxygen, cpap. HHC: none Patient's DC Goal: HOME DC PLAN: Home Shayla CRANE RN ACM
--- NOTE | 2018-10-24 15:42 | CHAPLAIN ---
Type of Pastoral Visit _x__ Initial Visit ___ Follow-up Visit ___ On-call Visit ___ General Patient Visit ___ Spiritual Assessment ___ Family Conference ___ Bereavement ___ Rapid Response ___ Code Blue ___ Other (describe below) Pastoral Care Referral From _x__ Patient ___ Family ___ Nurse ___ Physician ___ Lining Stamper ___ Vamp Creaser ___ Other (describe below) Sacrament/Intervention _x__ Active listening ___ Anointing ___ Yazidi ___ Bereavement ___ Communion _x__ Yessenia exploration ___ _x__ Life review _x__ Prayer ___ Reconciliation ___ Sacrament of Sick _x__ Supportive presence ___ Wedding ___ Other (describe below) Pastoral Comments patient and spouse also asked about churches in area as they are looking to get connected with a quaker of yessenia
--- NOTE | 2018-10-24 16:11 | PCM.PROGNOTE ---
Patient Problems: Active and Suspected Problems ACS (acute coronary syndrome) (Acute) Subjective: Patient was seen and examined today in ICU, he underwent cardiac catheterization today and was noted to have obstructive coronary disease in the circumflex and mid obtuse marginal branch, PTCA was performed in both areas with insertion of PARISH. I talked briefly with cardiology about his care today, I talked with the patient and the patient's family who was in the room today (including his ). - Physical Exam General: Alert, Oriented x3, Cooperative, No apparent distress, Well developed, Well nourished HEENT: Atraumatic, PERRLA, EOMI, Normocephalic Neck: Supple, No JVD, No Nuchal Rigidity, Trachea Midline, Thyroid Normal Size and Texture Lungs: Clear to auscultation, Normal air movement Cardiovascular: Regular rate, Regular Rhythm, Normal S1, Normal S2, No murmurs, No Ectopic Activity Abdomen: Bowel Sounds Present, Soft, Non Tender, Non-Distended, Obese Extremities: No clubbing, No cyanosis, No edema, Capillary Refill Less than 3 Seconds Skin: No rashes, No breakdown Musculoskeletal: No Tenderness to Palpation of Joints or Extremities Neurological: Cranial nerves II-XII grossly intact, Neuro grossly intact, Sensory exam intact to light touch and pain, Coordination normal Psych/Mental Status: Normal Affect, Appropriate, Alert and oriented to time, place, person, mood and affect Vital Signs Temp Pulse Resp BP Pulse Ox 97.3 F L 75 14 143/82 H 99 10/24/18 08:00 10/24/18 11:30 10/24/18 11:30 10/24/18 11:30 10/24/18 11:30 Oxygen Flow Rate (L/min) 2 Oxygen Delivery Method Room Air Weight: 119.748 kg Body Mass Index (BMI) 36.8 Intake and Output for Last 24 Hours 10/22/18 10/23/18 10/24/18 23:59 23:59 23:59 Intake Total 531.6 / 531.6 Output Total 400 / 400 Balance 131.6 / 131.6 Laboratory Tests Past 24 Hrs 10/24/18 10/24/18 10/24/18 00:05 00:05 00:05 WBC 12.5 H RBC 5.54 Hgb 13.3 Hct 42.3 MCV 76.4 L MCH 24.0 L MCHC 31.4 L RDW 16.0 H RDW Differential 44.0 H Plt Count 372 MPV 10.1 Immature Gran % (Auto) 0.200 Neut % (Auto) 62.7 Lymph % (Auto) 26.5 [place]ois % (Auto) 7.7 Eos % (Auto) 2.4 Baso % (Auto) 0.5 Absolute Neuts (auto) 7.9 H Absolute Lymphs (auto) 3.32 Total Counted Not Reportable PT INR APTT Activated Clotting Time Sodium 138 Potassium 3.9 Chloride 105 Carbon Dioxide 24.0 Anion Gap 9 BUN 9 Creatinine 0.94 Estim Creat Clear Calc 90.60 Est GFR (MDRD) Af Amer 106 Est GFR (MDRD) Non-Af 88 BUN/Creatinine Ratio 9.5 L Glucose 130 H Hemoglobin A1c Calcium 9.2 Magnesium 2.2 Total Bilirubin AST ALT Alkaline Phosphatase Troponin I 0.277 H Total Protein Albumin Globulin Albumin/Globulin Ratio Triglycerides Cholesterol LDL Cholesterol VLDL Cholesterol HDL Cholesterol 10/24/18 10/24/18 10/24/18 03:22 03:22 05:50 WBC 13.0 H RBC 4.98 Hgb 12.0 L Hct 38.5 L MCV 77.3 L MCH 24.1 L MCHC 31.2 L RDW 16.1 H RDW Differential 44.5 H Plt Count 342 MPV 10.1 Immature Gran % (Auto) Neut % (Auto) Lymph % (Auto) [place] % (Auto) Eos % (Auto) Baso % (Auto) Absolute Neuts (auto) Absolute Lymphs (auto) Total Counted PT INR APTT Activated Clotting Time Sodium Potassium Chloride Carbon Dioxide Anion Gap BUN Creatinine Estim Creat Clear Calc Est GFR (MDRD) Af Amer Est GFR (MDRD) Non-Af BUN/Creatinine Ratio Glucose Hemoglobin A1c 7.4 H Calcium Magnesium Total Bilirubin AST ALT Alkaline Phosphatase Troponin I 0.574 H Total Protein Albumin Globulin Albumin/Globulin Ratio Triglycerides Cholesterol LDL Cholesterol VLDL Cholesterol HDL Cholesterol 10/24/18 10/24/18 10/24/18 05:50 05:50 09:20 WBC RBC Hgb Hct MCV MCH MCHC RDW RDW Differential Plt Count MPV Immature Gran % (Auto) Neut % (Auto) Lymph % (Auto) [place] % (Auto) Eos % (Auto) Baso % (Auto) Absolute Neuts (auto) Absolute Lymphs (auto) Total Counted PT 13.7 INR 1.1 APTT 42.2 H Activated Clotting Time 191 H Sodium 142 Potassium 4.6 Chloride 106 Carbon Dioxide 26.0 Anion Gap 10 BUN 10 Creatinine 0.98 Estim Creat Clear Calc 89.64 Est GFR (MDRD) Af Amer 102 Est GFR (MDRD) Non-Af 84 BUN/Creatinine Ratio 10.3 Glucose 124 H Hemoglobin A1c Calcium 8.7 Magnesium Total Bilirubin 0.50 AST 38 H ALT 37 Alkaline Phosphatase 80 Troponin I 1.100 H* Total Protein 6.8 Albumin 3.3 Globulin 3.5 Albumin/Globulin Ratio 0.9 Triglycerides 155 Cholesterol 185 LDL Cholesterol 112 VLDL Cholesterol 31 HDL Cholesterol 42 POC Glucose 10/24/18 10/24/18 11:16 06:31 POC Glucose 115 H 123 H Medical Necessity - Tobacco Use Smoking Status: Former smoker - quit 30 years ago Tobacco Use: Non-smoker Assessment/Plan All Active Problems ACS (acute coronary syndrome) (Acute) #1 acute non-ST elevation PR-again patient underwent intervention today with placement of 2 PARISH stents, he will remain on his present medications, I discussed these with the patient and his today. #2 obstructive coronary disease-see above #3 hyperlipidemia-patient has not been on a lipid-lowering agent at home-his states that this is because he refuses to take 1. #2 type 2 diabetes- continue present care Code Visit Inpatient E&M: 98062 Subs Hosp L2
[2018-10-24 17:31] LABS: Bedside Glucose 128 mg/dL (70-110)
[2018-10-24 20:47] LABS: Sodium Level 142 mmol/L (136-145)
[2018-10-24] MEDS: Pantoprazole Sodium 40 MG Tablet PO (21:26)
[2018-10-24] MEDS: Atorvastatin Calcium 80 MG Tablet PO (21:27)
[2018-10-24] MEDS: TICAGRELOR 90 MG TABLET PO (21:27)
[2018-10-24] MEDS: Latanoprost 0.005% 1 Bottle 0.005 DRP EACH EYE (21:30)
[2018-10-24 21:40] LABS: Bedside Glucose 146 mg/dL (70-110)
[2018-10-25] VITALS (10 sets, daily range): BP systolic 139–164; BP diastolic 86–102; PULSE 72–88; RESP 10–22; TEMP 36.7–36.9; O2SAT 97–100
[2018-10-25 01:36] LABS: Bedside Glucose 110 mg/dL (70-110)
[2018-10-25 05:35] LABS: Hematocrit 39.8 % (40-54); Hemoglobin 12.4 g/dl (13.0-16.5); Mean Corp Hgb Conc 31.2 g/gl (32-36); Mean Corpuscular Hgb 23.8 pg (27.0-32.0); Mean Corpuscular Volume 76.4 fL (80-94); Platelet Count 329 K/mm3 (150-450); RBC Distribution Width CV 16.2 % (11.6-14.6); RBC Distribution Width SD 44.2 fl (35.1-43.9); Red Blood Count 5.21 M/mm3 (4.6-6.2); White Blood Count 13.9 K/mm3 (4.4-11.0)
[2018-10-25 05:37] LABS: Scan Indicated on CBC? Y/N NO
[2018-10-25 05:47] LABS: Anion Gap 7 (5-15); BUN 7 mg/dL (7-18); BUN/Creat Ratio 8.4 RATIO (10-20); Calcium,Total 8.6 mg/dL (8.5-10.1); Chloride 108 mmol/L (98-107); Cholesterol 177 mg/dL (200); Creatinine, Serum 0.84 mg/dL (0.70-1.30); EST Glomerular Filtration Rate 101 mL/min (>60); Est Glom Filt Rate - Afr Amer 122 mL/min (>60); Estimated Creatinine Clearance 104.58 ml/min; Glucose 122 mg/dL (74-106); High Density Lipoprotein 40 mg/dL; Potassium 4.1 mmol/L (3.5-5.1); Sodium Level 140 mmol/L (136-145); Triglycerides 172 mg/dL; Very Low Density Lipoprotein 34 mg/dL (5-40)
[2018-10-25 07:01] LABS: Bedside Glucose 124 mg/dL (70-110)
--- NOTE | 2018-10-25 07:08 | PN.CARD_ITS ---
Subjectve: Patient seen and evaluated. Appears to be doing well. No complaints overnight. Objective: Vital Signs Temp Pulse Resp BP Pulse Ox 98.3 F 80 12 146/90 H 98 10/25/18 04:00 10/25/18 06:00 10/25/18 06:00 10/25/18 06:00 10/25/18 06:00 Oxygen Flow Rate (L/min) 2 Oxygen Delivery Method Room Air Weight: 269 lb 13.533 oz Body Mass Index (BMI) 36.8 Intake and Output for Last 24 Hours 10/23/18 10/24/18 10/25/18 23:59 23:59 23:59 Intake Total 1981.6 / 1981.6 480 / 480 Output Total 600 / 600 1100 / 1100 Balance 1381.6 / 1381.6 -620 / -620 General: Awake, Alert, Oriented x 3 HEENT: PERRL, EOMI, Sclera Non Icteric Neck: Supple, Good ROM, No Lymph Node Enlargement Lungs: Clear to auscultation Cardiovascular: Regular Rhythm, Normal S1, Normal S2, No Murmurs, No Rubs, No Gallops Vascular: No Carotid Bruits, Normal Femoral Pulses, Normal Radial Pulses, Normal Dorsalis Pedal Pulse, Normal Posterior Tibial Pulses Abdomen: Bowel Sounds Present, Soft, Non Tender, No HSM, No Organomegaly Extremities: No Cyanosis, No Clubbing, No edema Neurological: No Focal Motor or Sensory Deficit Psych/Mental Status: Appropriate 10/24/18 03:22: Hemoglobin A1c 7.4 H 10/24/18 05:50: Sodium 142, Troponin I 1.100 H* 10/25/18 05:20: Sodium 140, Potassium 4.1, Chloride 108 H, Carbon Dioxide 25.0, Anion Gap 7, BUN 7, Creatinine 0.84, Est GFR (MDRD) Af Amer 122, Est GFR (MDRD) Non-Af 101, BUN/Creatinine Ratio 8.4 L, Glucose 122 H, Calcium 8.6, Triglycerides 172, Cholesterol 177, LDL Cholesterol 103, VLDL Cholesterol 34, HDL Cholesterol 40 10/25/18 05:20: WBC 13.9 H, RBC 5.21, Hgb 12.4 L, Hct 39.8 L, MCV 76.4 L, MCH 23.8 L, MCHC 31.2 L, RDW 16.2 H, RDW Differential 44.2 H, Plt Count 329, MPV 10.0 Rhythm: EKG: ECHO: Stress Test: Cardiac Cath: PCI: CT Surgery: Holter monitor: EPS: PPM: CXR: Chest CT Scan: Medical Necessity - Tobacco Use Smoking Status: Former smoker - quit 30 years ago Tobacco Use: Non-smoker Assessment/Plan 1. Non-ST elevation myocardial infarction * Patient presents with chest discomfort with subtle EKG changes and has abnormal troponin qualifying as a non-ST elevation myocardial infarction. * Cardiac catheterization demonstrated high-grade lesion noted in the circumflex artery as well as the third obtuse marginal branch for which he got angioplastied and stented. * The patient will continue with aspirin, ticagrelor, beta-yamil, high intensity statin, and start cardiac rehabilitation. * Patient can be discharged for outpatient follow-up in my office. 2. Lipid status * His lipid status appears to be borderline but with his diabetic status and his current enzyme patten would recommend high intensity statin * Diet and exercise have also been emphasized. * Thank you for allowing me to participate in the care of your patient. Please don't hesitate to call if any issues arise
[2018-10-25] MEDS: Lisinopril 5 MG Tablet PO (08:09)
[2018-10-25] MEDS: Aspirin E.C. 81 MG Tablet PO (08:09)
[2018-10-25] MEDS: Metoprolol Tartrate 25 MG Tablet 12.5 MG PO (08:09)
[2018-10-25] MEDS: TICAGRELOR 90 MG TABLET PO (08:09)
--- NOTE | 2018-10-25 08:18 | PCM.DC ---
- Discharge Diagnoses Current Active Problems: Current Active and Chronic Problems Atherosclerotic heart disease of [place] coronary artery without angina pectoris (Chronic) Stented coronary artery (Chronic 10/24/18) PARISH to mid LCX (2.5 X 38 [employer]) and PARISH to mid OM2 (2.5 X 20 [employer]) ACS (acute coronary syndrome) (Acute) Obesity (BMI 30-39.9) (Chronic) Diabetes mellitus, type II (Chronic) RLS (restless legs syndrome) (Chronic) GERD (gastroesophageal reflux disease) (Chronic) Former tobacco use (Chronic) You will use the following diet at home:: Calorie/Carbohydrate Controlled (specify 1200, 1400, etc) - 1800 susie Your food should be the consistency of: Regular Your liquids should be the consistency of: Regular/Thin Discharge Activity: Return to Normal Activity Weight Bearing Status: Full weight bearing Allergies/Adverse Reactions: Allergies No Known Allergies Allergy (Verified 10/23/18 23:53) Medications to take at Discharge Ergocalciferol [Vitamin D] 50,000 mg PO QWEEK 10/24/18 Latanoprost 0.005 drop EACH EYE QHS 10/24/18 Metformin HCl [Glucophage] 500 mg PO BIDCM 10/24/18 Multivitamin [Multiple Vitamins] 1 each PO DAILY 10/24/18 Pantoprazole Sodium [Protonix] 40 mg PO DAILY 10/24/18 Aspirin E.C. [Ecotrin] 81 mg PO DAILY@0800 tablet 10/25/18 Atorvastatin Calcium [Lipitor] 80 mg PO QHS #30 tablet 10/25/18 Lisinopril [Zestril] 5 mg PO DAILY #30 tablet 10/25/18 Metoprolol Tartrate [Lopressor (beta yamil)] 12.5 mg PO BID #30 tablet 10/25/18 Ticagrelor [Brilinta] 90 mg PO BID #60 tablet 10/25/18 The following prescriptions were given: Atorvastatin Calcium [Lipitor] 80 mg PO QHS #30 tablet Lisinopril [Zestril] 5 mg PO DAILY #30 tablet Metoprolol Tartrate [Lopressor (beta yamil)] 12.5 mg PO BID #30 tablet Ticagrelor [Brilinta] 90 mg PO BID #60 tablet Orders to be completed after discharge: Phase II, Outpatient Cardiac Rehab Location: None Selected Primary Care Physician: Joi Gill MD [Primary Care Provider] - Please follow up with your Primary Care Physician in: in 2-3 weeks Test Results: Test results from this visit will be discussed in further detail at your follow-up appointment, if applicable. Please Follow Up With: Elmer Miranda MD When: call office to schedule appointment
--- NOTE | 2018-10-25 10:00 | EKG12_ITS ---
Test Reason : AM EKG Blood Pressure : / mmHG Vent. Rate : 080 BPM Atrial Rate : 080 BPM P-R Int : 154 ms QRS Dur : 094 ms QT Int : 370 ms P-R-T Axes : 022 -31 005 degrees QTc Int : 426 ms Normal sinus rhythm Left axis deviation Voltage criteria for left ventricular hypertrophy Abnormal ECG When compared with ECG of 24-OCT-2018 10:04, MANUAL COMPARISON REQUIRED, DATA IS UNCONFIRMED Confirmed by TIMA GUERRERO ([id number]), dictionary editor JESSICA PIPER ([id number]) on 10/28/2018 5:10:38 PM Referred By: Gladys Marin Confirmed By:TIMA GUERRERO
--- NOTE | 2018-10-27 16:30 | PCM.DC.SUM ---
Discharge Date and Diagnosis Date of Admission: 10/24/18 Date of Discharge: 10/25/18 - Primary Discharge Diagnosis #1 acute non-ST elevation [place] #2 obstructive coronary disease #3 hyperlipidemia #2 type 2 diabetes - Secondary Discharge Diagnosis Chronic Problems Atherosclerotic heart disease of [place] coronary artery without angina pectoris (Chronic) Stented coronary artery (Chronic 10/24/18) PARISH to mid LCX (2.5 X 38 Promus Synergy) and PARISH to mid OM2 (2.5 X 20 Promus Synergy) Obesity (BMI 30-39.9) (Chronic) Diabetes mellitus, type II (Chronic) RLS (restless legs syndrome) (Chronic) GERD (gastroesophageal reflux disease) (Chronic) Former tobacco use (Chronic) Hospital Course and Treatment Operations: None Procedures: 2-D Echocardiogram, Cardiac catheterization - With placement of 2 PARISH stents in mid circumflex artery and mid obtuse marginal artery Summary of Care Provided: The patient is a 58 year old M who was seen in the emergency room at [facility] with a chief complaint of chest pain. Workup in the emergency room included an EKG which showed a normal sinus rhythm with 1 PVC, nonspecific ST-T wave changes were noted. Troponin was elevated at 0.277, chest x-ray showed no acute disease. Patient was admitted to PCU, enzymes were cycled and they were elevated indicating a non-STEMI. Patient underwent a cardiac catheterization with the insertion of 2 drug-eluting stents for obstructive coronary disease. Patient had no complications during his hospital stay. Echocardiogram showed a normal ejection fraction. On 10/25/18, patient was seen and examined and felt to be in stable condition for discharge home: On examination he appeared in good health and spirits. Vital signs as documented. Skin warm and dry and without overt rashes. Neck without JVD. Lungs clear. Heart exam notable for regular rhythm, normal sounds and absence of murmurs, rubs or gallops. Abdomen unremarkable and without evidence of organomegaly, masses, or abdominal aortic enlargement. Extremities nonedematous. Neuro: Cranial nerves II through XII are grossly intact, no focal motor deficits were noted, sensation to light touch and pinprick intact. Psych: Patient is alert and oriented x3, he does not appear anxious or depressed - Physical Exam Vital Signs Temp Pulse Resp BP Pulse Ox 98.1 F 88 22 H 148/88 H 97 10/25/18 08:00 10/25/18 08:09 10/25/18 08:00 10/25/18 08:00 10/25/18 08:00 Oxygen Flow Rate (L/min) 2 Oxygen Delivery Method Room Air Weight: 122.4 kg Body Mass Index (BMI) 36.8 Intake and Output for Last 24 Hours 10/25/18 10/26/18 10/27/18 23:59 23:59 23:59 Intake Total 480 / 480 Output Total 1100 / 1100 Balance -620 / -620 Discharge Activity: Return to Normal Activity Weight Bearing Status: Full weight bearing Home Medications: Medications to take at Discharge Ergocalciferol [Vitamin D] 50,000 mg PO WE 10/24/18 Latanoprost 0.005 drop EACH EYE QHS 10/24/18 Metformin HCl [Glucophage] 500 mg PO BIDCM 10/24/18 Multivitamin [Multiple Vitamins] 1 each PO DAILY 10/24/18 Pantoprazole Sodium [Protonix] 40 mg PO DAILY 10/24/18 Aspirin E.C. [Ecotrin] 81 mg PO DAILY@0800 tablet 10/25/18 Atorvastatin Calcium [Lipitor] 80 mg PO QHS #30 tablet 10/25/18 Lisinopril [Zestril] 5 mg PO DAILY #30 tablet 10/25/18 Metoprolol Tartrate [Lopressor (beta berta)] 12.5 mg PO BID #30 tablet 10/25/18 Ticagrelor [Brilinta] 90 mg PO BID #60 tablet 10/25/18 Oxycodone HCl/Acetaminophen [Percocet 5/325] 1 tab PO Q6H PRN PRN 3 Days #12 tab 10/26/18 Following Prescrptions Were Given to Patient: Atorvastatin Calcium [Lipitor] 80 mg PO QHS #30 tablet Lisinopril [Zestril] 5 mg PO DAILY #30 tablet Metoprolol Tartrate [Lopressor (beta berta)] 12.5 mg PO BID #30 tablet Ticagrelor [Brilinta] 90 mg PO BID #60 tablet Other Amb Orders: Phase II, Outpatient Cardiac Rehab Location: None Selected Primary Care Physician: Joi Gill MD [Primary Care Provider] - Please follow up with your Primary Care Physician in: in 2-3 weeks Please Follow Up With: Elmer Miranda MD When: call office to schedule appointment Disposition: Home Minutes spent on discharge:: 32 Patient Condition:: Stable Medical Necessity - Tobacco Use Smoking Status: Former smoker - quit 30 years ago Tobacco Use: Non-smoker Meaningful Use Info Meaningful Use Diagnoses (Choose all that apply): AMI - AMI Aspirin given w/in 24hrs of arrival?: Yes ASA at discharge?: Yes Statins at discharge?: Yes Manuel/ARB at discharge?: Yes Beta Berta at discharge?: Yes Done w/ Acute [place] measure.: Yes Code Visit Inpatient E&M: 01891 Disch Hosp
--- NOTE | 2018-10-27 16:36 | DS.PCM_ITS ---
Discharge Date and Diagnosis Date of Admission: 10/24/18 Date of Discharge: 10/25/18 - Primary Discharge Diagnosis #1 acute non-ST elevation [place] #2 obstructive coronary disease #3 hyperlipidemia #2 type 2 diabetes - Secondary Discharge Diagnosis Chronic Problems Atherosclerotic heart disease of [place] coronary artery without angina pectoris (Chronic) Stented coronary artery (Chronic 10/24/18) PARISH to mid LCX (2.5 X 38 Promus Synergy) and PARISH to mid OM2 (2.5 X 20 Promus Synergy) Obesity (BMI 30-39.9) (Chronic) Diabetes mellitus, type II (Chronic) RLS (restless legs syndrome) (Chronic) GERD (gastroesophageal reflux disease) (Chronic) Former tobacco use (Chronic) Hospital Course and Treatment Operations: None Procedures: 2-D Echocardiogram, Cardiac catheterization - With placement of 2 PARISH stents in mid circumflex artery and mid obtuse marginal artery Summary of Care Provided: The patient is a 58 year old M who was seen in the emergency room at [facility] with a chief complaint of chest pain. Workup in the emergency room included an EKG which showed a normal sinus rhythm with 1 PVC, nonspecific ST-T wave changes were noted. Troponin was elevated at 0.277, chest x-ray showed no acute disease. Patient was admitted to PCU, enzymes were cycled and they were elevated indicating a non-STEMI. Patient underwent a cardiac catheterization with the insertion of 2 drug-eluting stents for obstructive coronary disease. Patient had no complications during his hospital stay. Echocardiogram showed a normal ejection fraction. On 10/25/18, patient was seen and examined and felt to be in stable condition for discharge home: On examination he appeared in good health and spirits. Vital signs as documented. Skin warm and dry and without overt rashes. Neck without JVD. Lungs clear. Heart exam notable for regular rhythm, normal sounds and absence of murmurs, rubs or gallops. Abdomen unremarkable and without evidence of organomegaly, masses, or abdominal aortic enlargement. Extremities nonedematous. Neuro: Cranial nerves II through XII are grossly intact, no focal motor deficits were noted, sensation to light touch and pinprick intact. Psych: Patient is alert and oriented x3, he does not appear anxious or depressed - Physical Exam Vital Signs Temp Pulse Resp BP Pulse Ox 98.1 F 88 22 H 148/88 H 97 10/25/18 08:00 10/25/18 08:09 10/25/18 08:00 10/25/18 08:00 10/25/18 08:00 Oxygen Flow Rate (L/min) 2 Oxygen Delivery Method Room Air Weight: 122.4 kg Body Mass Index (BMI) 36.8 Intake and Output for Last 24 Hours 10/25/18 10/26/18 10/27/18 23:59 23:59 23:59 Intake Total 480 / 480 Output Total 1100 / 1100 Balance -620 / -620 Discharge Activity: Return to Normal Activity Weight Bearing Status: Full weight bearing Home Medications: Medications to take at Discharge Ergocalciferol [Vitamin D] 50,000 mg PO WE 10/24/18 Latanoprost 0.005 drop EACH EYE QHS 10/24/18 Metformin HCl [Glucophage] 500 mg PO BIDCM 10/24/18 Multivitamin [Multiple Vitamins] 1 each PO DAILY 10/24/18 Pantoprazole Sodium [Protonix] 40 mg PO DAILY 10/24/18 Aspirin E.C. [Ecotrin] 81 mg PO DAILY@0800 tablet 10/25/18 Atorvastatin Calcium [Lipitor] 80 mg PO QHS #30 tablet 10/25/18 Lisinopril [Zestril] 5 mg PO DAILY #30 tablet 10/25/18 Metoprolol Tartrate [Lopressor (beta berta)] 12.5 mg PO BID #30 tablet 10/25/18 Ticagrelor [Brilinta] 90 mg PO BID #60 tablet 10/25/18 Oxycodone HCl/Acetaminophen [Percocet 5/325] 1 tab PO Q6H PRN PRN 3 Days #12 tab 10/26/18 Following Prescrptions Were Given to Patient: Atorvastatin Calcium [Lipitor] 80 mg PO QHS #30 tablet Lisinopril [Zestril] 5 mg PO DAILY #30 tablet Metoprolol Tartrate [Lopressor (beta berta)] 12.5 mg PO BID #30 tablet Ticagrelor [Brilinta] 90 mg PO BID #60 tablet Other Amb Orders: Phase II, Outpatient Cardiac Rehab Location: None Selected Primary Care Physician: Joi Gill MD [Primary Care Provider] - Please follow up with your Primary Care Physician in: in 2-3 weeks Please Follow Up With: Elmer Miranda MD When: call office to schedule appointment Disposition: Home Minutes spent on discharge:: 32 Patient Condition:: Stable Medical Necessity - Tobacco Use Smoking Status: Former smoker - quit 30 years ago Tobacco Use: Non-smoker Meaningful Use Info Meaningful Use Diagnoses (Choose all that apply): AMI - AMI Aspirin given w/in 24hrs of arrival?: Yes ASA at discharge?: Yes Statins at discharge?: Yes Manuel/ARB at discharge?: Yes Beta Berat at discharge?: Yes Done w/ Acute [place] measure.: Yes Code Visit Inpatient E&M: 46786 Disch Hosp
== END 2018-10-25 09:10 | disposition home or self-care (01) | DRG 247 ==
LOC: ED 10-24 00:24 → PCU 10-24 01:23 → ICU 10-24 08:58
PROVIDERS: Internal Medicine Cardiovascular Disease; Admitting Provider Family Medicine; Emergency Provider Emergency Medicine; Family Provider Internal Medicine; PCP Internal Medicine; Referring Provider Family Medicine; Visit Provider Internal Medicine
DX: I21.4 Non-ST elevation (NSTEMI) myocardial infarction (principal); E11.9 Type 2 diabetes mellitus without complications; I25.10 Atherosclerotic heart disease of native coronary artery without angina pectoris; G25.81 Restless legs syndrome; E78.5 Hyperlipidemia, unspecified; K21.9 Gastro-esophageal reflux disease without esophagitis; E66.9 Obesity, unspecified; Z68.36 Body mass index [BMI] 36.0-36.9, adult; Z79.84 Long term (current) use of oral hypoglycemic drugs; Z87.891 Personal history of nicotine dependence; Z85.038 Personal history of other malignant neoplasm of large intestine; Z90.49 Acquired absence of other specified parts of digestive tract
CPT/HCPCS: 36415; 71045; 80048; 80053; 80061; 82962; 83036; 83735; 84484; 85025; 85027; 85347; 85610; 85730; 92928; 92929; 93005; 93306; 93458; 99152; 99153; 99285; C1760; J7030; J7040; Q9957; Q9967; A4216; C1725; C1769; C1874; C1887; C1894; C8929; C9600; C9601; J2405

== ENCOUNTER 2018-10-26 17:31 | Emergency (ER) | payer OTHER, SELFPAY ==
[2018-10-24 02:30] VITALS: BMI 36.8
[2018-10-24 12:28] VITALS: BMI 36.8
[2018-10-26] VITALS (8 sets, daily range): BP systolic 110–139; BP diastolic 72–89; PULSE 78–99; RESP 18–24; TEMP 36.4; O2SAT 94–98; BMI 36.8
--- NOTE | 2018-10-26 17:37 | RAD_ITS ---
STUDY: X-RAY CHEST REASON FOR EXAM: Male, 58 years old. Intermittent chest pain. TECHNIQUE: Single frontal view of the chest. COMPARISON: October 24, 2018 FINDINGS: There is stable mild hyperexpansion. There is no demonstrated pleural abnormality. There is borderline cardiomegaly unchanged. Normal mediastinum and brenda. Normal visualized pulmonary arteries. Normal visualized aortic arch and descending thoracic aorta. Normal visualized thoracic spine. Normal visualized ribs, clavicles, and shoulders. There is no demonstrated abnormality of the visualized soft tissue structures of the upper abdomen. RAD/Chest 1 View (Portable) IMPRESSION: Stable appearance of the chest with no new or acute finding. Electronically Signed: Wilfrido Ibrahim MD at 18:21 EDT , Service support ,
--- NOTE | 2018-10-26 17:37 | EKG12_ITS ---
Test Reason : CP Blood Pressure : / mmHG Vent. Rate : 084 BPM Atrial Rate : 084 BPM P-R Int : 150 ms QRS Dur : 096 ms QT Int : 356 ms P-R-T Axes : 016 -38 008 degrees QTc Int : 420 ms Normal sinus rhythm Left axis deviation Voltage criteria for left ventricular hypertrophy Nonspecific ST abnormality Abnormal ECG Confirmed by NELIA HAILE, JAYY ([id number]), scientific publications editor JESSICA PIPER ([id number]) on 10/28/2018 4:23:17 PM Referred By: RAYNE Confirmed By:JAYY PICKENS MD
[2018-10-26 17:57] LABS: Absolute Neutrophil Count 10.6 X10^3/uL (2.0-7.7); Basophil# 0.06 X10^3/uL; Basophil% 0.4 % (0-1); Eosinophil# 0.24 X10^3/uL; Eosinophils% 1.7 % (0-5); Hematocrit 40.5 % (40-54); Hemoglobin 12.5 g/dl (13.0-16.5); Lymphocyte % 14.2 % (19-41); Mean Corp Hgb Conc 30.9 g/gl (32-36); Mean Corpuscular Hgb 23.7 pg (27.0-32.0); Mean Corpuscular Volume 76.9 fL (80-94); Mean Platelet Vol. 9.5 fl (6.2-12.0); Monocyte# 1.23 X10^3/uL; Monocyte% 8.7 % (0-10); Neutrophil # 10.56 X10^3/uL (2.7-7.7); Neutrophil % 74.9 % (47-70); Platelet Count 335 K/mm3 (150-450); RBC Distribution Width SD 44.4 fl (35.1-43.9); Red Blood Count 5.27 M/mm3 (4.6-6.2); White Blood Count 14.1 K/mm3 (4.4-11.0)
[2018-10-26 18:01] LABS: POSITIVE COUNT NO; POSITIVE DIFFERENTIAL NO; POSITIVE MORPHOLOGY NO
[2018-10-26] MEDS: Aspirin 81 MG TAB.CHEW 324 MG PO (18:02)
[2018-10-26 18:37] LABS: Anion Gap 5 (5-15); BUN 10 mg/dL (7-18); BUN/Creat Ratio 9.3 RATIO (10-20); Calcium,Total 8.5 mg/dL (8.5-10.1); Chloride 105 mmol/L (98-107); Creatinine, Serum 1.07 mg/dL (0.70-1.30); EST Glomerular Filtration Rate 76 mL/min (>60); Est Glom Filt Rate - Afr Amer 92 mL/min (>60); Glucose 186 mg/dL (74-106); Sodium Level 135 mmol/L (136-145)
--- NOTE | 2018-10-26 18:39 | ED.RN ---
TROP 0.[address] LAB DR MONTOYA
--- NOTE | 2018-10-26 18:55 | CT_ITS ---
STUDY: CTA CHEST REASON FOR EXAM: Male, 58 years old. Chest pain and pressure. RADIATION DOSAGE (If Supplied By Facility): CTDIvol = ( 13.85 ) mGy, DLP = ( 586.16 ) mGycm TECHNIQUE: The examination was performed with the intravenous administration of Isovue 370 100ml IV. Post-processing of the angiographic images was performed, with multiplanar reformation and 3D reconstruction. Individualized dose optimization techniques were used for this CT. COMPARISON: None. FINDINGS: Normal enhancement of the main pulmonary artery and right and left pulmonary arteries. Normal enhancement of the bilateral peripheral pulmonary arteries. There is no demonstrated pulmonary embolism. Normal thoracic aorta and visualized great vessels. There is no demonstrated aortic dissection. Normal heart and pericardium. Normal mediastinum. Normal hilar regions. Normal visualized trachea and bronchi. The lungs are well expanded. Normal pulmonary parenchyma. Normal pleura. Normal chest wall structures. Normal osseous structures. Normal visualized upper abdomen. CT/CTA Chest W/WO Contrast IMPRESSION: Normal CTA chest examination, without a demonstrated pulmonary embolism or arterial dissection. Electronically Signed: Brennan Andersen MD at 20:11 EDT , Service support ,
[2018-10-26] MEDS: fentaNYL 100 MCG/2 ML Ampul 50 MCG IV (19:31)
[2018-10-26 19:43] LABS: CPK Total, Creatine Kinase 59 U/L (39-308)
[2018-10-26 20:43] LABS: CPK Total, Creatine Kinase 53 U/L (39-308)
--- NOTE | 2018-10-26 21:11 | ED.VISSUMM ---
- ER Visit Summary Date of Service: 10/26/18 Chief Complaint: Chest pain History of Present Illness: The patient is a 58 M with chest pain that started today. He had some pain this morning and it went away. It started again about an hour or 2 prior to arrival. He describes it as a pressure in his left chest and in his left cheek. Associated with some mild dizziness. The patient was recently admitted for an HI. He had a heart catheterization and 2 stents placed. He has been compliant with his medications and doing well and then today the symptoms recurred. The pain is not as bad as it was with his prior angina. Physical Examination: Afebrile and vital signs unremarkable. Alert and oriented. No acute distress. Heart regular rate and rhythm. Lungs clear. Extremities nontender with no edema. Skin appears normal in color without diaphoresis or pallor. Test Results: EKG showed sinus rhythm at a rate of 84. Nonspecific changes. No acute ischemia or infarction pattern. White count stable at 14.1. Hemoglobin 12.5. Sodium 135, glucose 186. Troponin 0 0.652 and CPK 59. Chest x-ray showed no acute findings. Emergency Department Course and Treatment: Patient was seen immediately. Placed on a monitor. Workup was unremarkable. He was treated with aspirin and nitro and had some improvement of his symptoms. He was discussed with Dr. Ray. Dr. Ray advised checking a CPK and then a delta troponin and CPK at 2 hours. These were repeated and they were stable. He also had a CTA which showed no acute findings. I am not sure what is causing his symptoms. Dr. Ray did not think this is ACS and said that if his workup was stable and unremarkable he could follow-up as an outpatient. He was given a short course of pain medicine. Return for any new or worsening issues. Treatment Plan: As above Disposition: Discharge Impression: 1. Chest pain This note was generated with [employer] dictation software. It may contain incorrect words, spelling, and punctuation that were not noted in review of the chart prior to signing ED Disposition - Plan for ED Patient: Referrals: Joi Gill MD [Primary Care Provider] -
--- NOTE | 2018-10-26 21:13 | ED.DEP ---
ED Disposition - Plan for ED Patient: Instructions: ED Chest Pain Atypical Unkn Cause Prescriptions: Oxycodone HCl/Acetaminophen [Percocet 5/325] 1 tab PO Q6H PRN PRN 3 Days #12 tab PRN Reason: Pain Referrals: Everette Ray MD [STAFF PHYSICIAN] -
--- NOTE | 2018-10-26 21:30 | ED.RN ---
IV DC'ED, CATHETER INTACT, SMALL GAUZE DRESSING PLACED. DISCHARGE INSTRUCTIONS GIVEN TO AND REVIEWED WITH PATIENT, PATIENT DENIES QUESTIONS OR CONCERNS AND VOICES UNDERSTANDING OF DISCHARGE INSTRUCTIONS. PT AMBULATES OUT OF ROOM WITHOUT DIFFICULTY.
== END 2018-10-26 21:31 | disposition home or self-care (01) ==
LOC: ED 17:49
PROVIDERS: Emergency Provider Emergency Medicine; Family Provider Internal Medicine; PCP Internal Medicine
DX: R07.9 Chest pain, unspecified (principal); E11.9 Type 2 diabetes mellitus without complications; K21.9 Gastro-esophageal reflux disease without esophagitis; I25.10 Atherosclerotic heart disease of native coronary artery without angina pectoris; Z87.891 Personal history of nicotine dependence; Z95.5 Presence of coronary angioplasty implant and graft
CPT/HCPCS: 71045; 71275; 80048; 82550; 84484; 85025; 93005; 99284; J7030; Q9967; A4216

== ENCOUNTER 2018-10-31 05:48 | Emergency (ER) | payer OTHER, SELFPAY ==
[2018-10-24 12:28] VITALS: BMI 36.8
[2018-10-26 17:33] VITALS: BMI 36.8
[2018-10-31 05:51] VITALS: BP 150/99; PULSE 87; RESP 16; TEMP 36.4; O2SAT 97; BMI 36.2
--- NOTE | 2018-10-31 06:03 | CT_ITS ---
HISTORY: hematuria x few days, mi last week and started on lipitor, urinating blood now, 2 stents, colorectal ca, diab, ks TECHNIQUE: Helically acquired images were obtained of the abdomen and pelvis without oral or IV contrast as per renal stone protocol. A radiation dose optimization technique was used for this scan. IV Contrast dosage and agent: None. Oral contrast: None. COMPARISON: CT abdomen and pelvis report but not images 03/31/2013 FINDINGS: Both kidneys are normal in position. Approximately 5 small calyceal stones involving the mid and lower pole regions of the right kidney. The largest stone measures 4.5 mm at the mid pole region. Several additional small calyceal stones at the left kidney. No hydronephrosis or hydroureter on either side. Adrenal glands are not enlarged. Lower thorax: Clear Small dependent gallstone. No pericholecystic inflammatory changes or biliary dilatation. Limited non-infusion exam. Allowing for this, the liver, spleen, and pancreas show no CT abnormality. Abdominal aorta is atherosclerotic and is normal in caliber. No ascites or retroperitoneal lymph no enlargement. GI tract: No obstruction. Surgical anastomosis in the region of the distal ileum and a second surgical anastomosis at the rectal region compatible with partial colectomy. Pelvis: The urinary bladder is poorly distended and shows a 3 x 1 mm stone which appears intraluminal near the vicinity of the right UVJ. No free fluid or lymph node enlargement. Bones: No acute osseous abnormality. Benign hemangioma of the T10 vertebral body. Ventral abdominal Wall: Postsurgical change of the midline and right paramedian abdominal wall and this correlates with CT findings of partial colectomy. CT/Abdomen/Pelvis without Cont IMPRESSION: 1. 3 x 1 mm bladder stone compatible with recent stone passage. 2. Bilateral small intrarenal calyceal stones, more numerous on the right. No hydronephrosis or hydroureter. 3. Chronic findings include cholelithiasis and previous partial colectomy. Individualized dose optimization techniques were used for this CT. at 0690 Reported and signed by: Tristen Morel MD Electronically Signed: Tristen Morel, at 6:50 EDT Tel , Service support ,
--- NOTE | 2018-10-31 06:04 | ED.VIS.GEN ---
History of Present Illness Chief Complaint: Complaint Narrative: stated he had hematuria over the last couple days. No clots started on Brilinta and aspirin after he had 2 stents placed for non-STEMI. This was a week ago. He is never had symptoms like this before other than when he had a kidney stone. A few days ago he did have right flank pain that resolved that evening. He thinks he might of had a kidney stone. This morning he had bright red blood through this concerned him so he came in for further evaluation to make sure he was okay. Current severity is mild. Past Medical History - Allergies and Home Meds Allergies/Adverse Reactions: Allergies No Known Allergies Allergy (Verified 10/31/18 05:51) Primary Care Physician: Joi Gill MD [Primary Care Provider] - Prior records reviewed: Yes Past Medical History: - - Coronary artery disease remote colon cancer stage I in remission Surgical History: - - Partial colectomy with ileostomy with reversal, postsurgical hernia repair. Cardiac stent x2 Lives: Spouse/ Significant Other Smoking Status: Never smoker Alcohol: None Drugs: None - Family History Maternal Family History: Reports: - - Patient notes a maternal family history of hypertension well with autoimmune hepatitis. Paternal Family History: Reports: Unknown - She notes that he does not know his paternal family history. Review of Systems General: Denies: Chills, Fever, Sweats Eyes: Denies: Visual changes - bilaterally, Diplopia ENT: Denies: Rhinorrhea, Sore throat Cardiovascular: Denies: Chest pain, Palpitations Respiratory: Denies: Dyspnea, Cough, Dyspnea on exertion Gastrointestinal: Denies: Abdominal pain, Nausea, Vomiting, Diarrhea, Melena, Hematochezia Genitourinary: Reports: Hematuria. Denies: Dysuria, Frequency Musculoskeletal: Denies: Back pain, Extremity Pain Skin: Denies: Rash, Wounds Neurological: Denies: Headache, Weakness, Numbness Physical Exam Vital Signs/Narrative: Vital Signs Temp Pulse Resp BP Pulse Ox 10/31/18 05:51 97.6 F L 87 16 150/99 H 97 General: Well nourished, Well developed, No Acute Distress Head: Normocephalic, Atraumatic Eyes: Perrl, EOMI ENT: Moist mucous membranes, No rhinorrhea Neck: Supple, Nontender Cardiovascular: Regular rate, Regular rhythm, No murmurs Respiratory: No distress, CTA bilaterally, Chest nontender Abdomen: Soft, Nontender, Nondistended, Normal bowel sounds Back: Nontender, Normal Inspection Extremities: Nontender, No edema Skin: No rash Neurological: Alert, Oriented x3, Cranial nerves II-XII grossly intact, Normal Strength, Normal Sensation Psychological: Normal affect, Normal Mood Diagnostic/Tx/Re-eval - Medical Decision Making Patient not having any pain currently. Lab work and CT abdomen pelvis obtained. Shows a very slight leukocytosis. This is unchanged from previous. He seems to always run high. Renal function normal. Coags normal. Urinalysis shows dark blood in his urine. CT shows a recently passed 3 mm kidney stone. Small punctate stones also noted. Patient likely had increased bleeding from the Brilinta. I do not think he can stop this however given the fact that he just had a heart cath and stents placed. He will follow with Dr. Renita Mitchell. Urine analysis did show significant amount of red blood cells as well as 2+ bacteria. I will place him on ciprofloxacin for the possible cystitis ED Disposition - Plan for ED Patient: Disposition: [facility] Diagnosis: Kidney stone on right side, Urinary tract infection Instructions: Identifying Kidney Stones, ED UTI Cystitis Male Prescriptions: Ciprofloxacin [Cipro] 500 mg PO BID #14 tab Referrals: Joi Gill MD [Primary Care Provider] -
[2018-10-31 06:12] LABS: Absolute Lymphocyte Count 2.49 X10^3/ul (0.83-4.51); Basophil# 0.08 X10^3/uL; Basophil% 0.5 % (0-1); Eosinophil# 0.24 X10^3/uL; Eosinophils% 1.5 % (0-5); Hematocrit 40.3 % (40-54); Hemoglobin 12.8 g/dl (13.0-16.5); Lymphocyte # 2.49 X10^3/ul (4.0); Lymphocyte % 15.7 % (19-41); Mean Corp Hgb Conc 31.8 g/gl (32-36); Mean Corpuscular Hgb 24.4 pg (27.0-32.0); Mean Corpuscular Volume 76.8 fL (80-94); Mean Platelet Vol. 9.7 fl (6.2-12.0); Monocyte# 1.03 X10^3/uL; Monocyte% 6.5 % (0-10); Neutrophil # 11.98 X10^3/uL (2.7-7.7); Neutrophil % 75.4 % (47-70); Platelet Count 402 K/mm3 (150-450); RBC Distribution Width CV 16.6 % (11.6-14.6); RBC Distribution Width SD 45.2 fl (35.1-43.9); Red Blood Count 5.25 M/mm3 (4.6-6.2); White Blood Count 15.9 K/mm3 (4.4-11.0)
[2018-10-31 06:14] LABS: POSITIVE COUNT NO; POSITIVE DIFFERENTIAL NO; POSITIVE MORPHOLOGY NO
[2018-10-31 06:23] LABS: Anion Gap 10 (5-15); BUN 9 mg/dL (7-18); Calcium,Total 8.8 mg/dL (8.5-10.1); Chloride 105 mmol/L (98-107); EST Glomerular Filtration Rate 92 mL/min (>60); Est Glom Filt Rate - Afr Amer 112 mL/min (>60); Estimated Creatinine Clearance 97.61 ml/min; Glucose 127 mg/dL (74-106); Sodium Level 139 mmol/L (136-145)
[2018-10-31 06:26] LABS: International Normalized Ratio 1.1; Prothrombin Time (Protime)PT. 13.6 SECONDS (11.7-14.9)
[2018-10-31 06:27] LABS: Partial Thromboplast Time 35.7 Seconds (24.1-36.2)
[2018-10-31 06:49] LABS: Mucous, Urine 0 SEEN /hpf (<or=2+); Squamous Epithelial Cells - UA 0 SEEN /hpf (0-5)
[2018-10-31 07:13] LABS: Color, Urine Red (Yellow); Glucose, Dipstick Normal (Normal); Ketone-Dipstick 5 mg/dl (Negative); Leukocyte Esterase-Dipstick 25 /ul (Negative); Nitrite-Dipstick Negative (Negative); Occult Blood-Urine 250 /ul (Negative); Protein-Dipstick 100 mg/dl (Negative); Urine Bilirubin Dipstick Negative (Negative); Urine Clarity Cloudy (Clear); Urine Urobilinogen Normal (Normal); Urine pH 6.5 (5.0 - 8.0)
[2018-10-31] MEDS: 0.9% Normal Saline 1,000 ML 1000 ML IV (07:15)
[2018-10-31 07:17] LABS: Bacteria 2+ /hpf (None Seen); Red Blood Cells-Urine > 100 SEEN /hpf (0-5); White Blood Cells 0-5 SEEN /hpf (0-5)
[2018-10-31] MEDS: Ciprofloxacin 500 MG Tablet PO (07:48)
[2018-10-31 07:50] VITALS: BP 127/93; PULSE 72; RESP 16; O2SAT 96
== END 2018-10-31 07:51 | disposition short-term general hospital (02) ==
PROVIDERS: Emergency Provider Emergency Medicine; Family Provider Internal Medicine; PCP Internal Medicine
DX: N20.0 Calculus of kidney (principal); N39.0 Urinary tract infection, site not specified; I25.10 Atherosclerotic heart disease of native coronary artery without angina pectoris; Z82.49 Family history of ischemic heart disease and other diseases of the circulatory system; Z90.49 Acquired absence of other specified parts of digestive tract; Z93.2 Ileostomy status; Z85.038 Personal history of other malignant neoplasm of large intestine; I25.2 Old myocardial infarction; Z95.5 Presence of coronary angioplasty implant and graft
CPT/HCPCS: 74176; 80048; 81001; 85025; 85610; 85730; 87086; 96360; 99285; J7030; A4216

== ENCOUNTER → 2020-01-26 06:13 | Outpatient (CLI) | payer BC, SELFPAY ==
[2018-10-24 12:28] VITALS: BMI 36.8
[2019-12-09 12:20] VITALS: BMI 36.5
--- NOTE | 2020-01-26 09:50 | STRESSREP ---
Stress Test Report Exercise myocardial perfusion stress test. 59-year-old man with a history of coronary artery disease with previous non-ST elevation myocardial infarction. Stress protocol: Resting EKG demonstrates normal sinus rhythm with a rate of 68 bpm normal intervals are noted resting blood pressure is 128/86 mmHg. Patient exercised according to regular Severo protocol for total duration of 6 minutes and 7 seconds the maximum heart rate 148 bpm which was 90% of maximum predicted heart rate the maximum workload was 7 metabolic equivalents. At rest there were no ST or T wave changes noted to suggest ischemia at peak exercise upsloping ST changes were noted with no meet the criteria for ischemia. No clinical angina was noted the test was terminated due to shortness of breath and the target heart rate being achieved. The peak blood pressure was 172/78 with a rate pressure product was 25,400. Myocardial perfusion protocol. 15.0 mCi of technetium 99m sestamibi was injected at rest. Patient exercised for 6 minutes attaining 90% of maximum practice heart rate. At peak exercise 45.0 mCi of technetium 99m sestamibi was injected stress images were obtained stress and rest images were reconstructed and compared in the short axis vertical long horizontal long axis. Gated images were also obtained per Perfusion SPECT analysis: Review of the stress images demonstrate normal uptake of tracer noted in all areas of the myocardium the resting images similarly demonstrate normal uptake of tracer noted in all areas of the myocardium. No areas of reversibility are noted suggest ischemia no previous infarct is noted. Gated SPECT analysis: The gated ejection fraction is 48%. Conclusion: Normal exercise myocardial perfusion stress test at a moderate workload. Low normal ejection fraction.
== END ==
PROVIDERS: PCP Internal Medicine; Referring Provider Nurse Practitioner Family; Visit Provider Nurse Practitioner Family
DX: R07.9 Chest pain, unspecified (principal); I25.10 Atherosclerotic heart disease of native coronary artery without angina pectoris; Z95.5 Presence of coronary angioplasty implant and graft
CPT/HCPCS: 78452; 93017; A9500

== ENCOUNTER 2020-05-04 18:37 | Emergency (ER) | payer BC, SELFPAY ==
[2018-10-24 12:28] VITALS: BMI 36.8
[2019-12-09 12:20] VITALS: BMI 36.5
[2020-05-04 18:39] VITALS: BP 180/100; PULSE 68; RESP 18; TEMP 36.6; O2SAT 97; BMI 37.3
--- NOTE | 2020-05-04 18:47 | ED.RN ---
RN CALLED FOR EKG, PULLED OLD EKGS FOR
--- NOTE | 2020-05-04 18:49 | EKG12_ITS ---
Test Reason : CP Blood Pressure : / mmHG Vent. Rate : 078 BPM Atrial Rate : 078 BPM P-R Int : 150 ms QRS Dur : 096 ms QT Int : 384 ms P-R-T Axes : 019 -34 021 degrees QTc Int : 437 ms Normal sinus rhythm Left axis deviation Voltage criteria for left ventricular hypertrophy Abnormal ECG Confirmed by NELIA HAILE, JAYY ([id number]), sound editor ANTONIA HALE ([id number]) on 05/07/2020 1:02:27 PM Referred By: ROME Confirmed By:JAYY PICKNES MD
--- NOTE | 2020-05-04 18:52 | ED.DCSUM_ITS ---
History of Present Illness Chief Complaint: Chest Pain Informant: Patient Onset: Days Context: Gradual Onset Timing: Intermittent Current Severity: Moderate Maximum Severity: Moderate Narrative: The patient is a 59-year-old male with history of coronary vascular disease that presents to the emergency department with intermittent left-sided chest pain. The patient states is been going on for about 3 days. He states it comes in waves in the last about 20 minutes. He states sometimes, he gets tingling into his jaw. The patient had similar pain about a year and a half ago. At that point, he was admitted observation, ended up with positive enzymes, and had heart catheterization. He does have stents in place. He was on anticoagulants, but due to recurrent nosebleeds they were stopped. He is currently only on aspirin. He does admit to some mild shortness of breath from time to time. He denies any pleuritic pain. He denies any leg swelling. Prior similar symptoms: No Recent Illness/Hospitalization: No Past Medical History - Allergies and Home Meds Allergies/Adverse Reactions: Allergies atorvastatin Adverse Reaction (Intermediate, Verified 05/04/20 18:42) Acid reflux rosuvastatin [From Crestor] Adverse Reaction (Intermediate, Verified 05/04/20 18:42) Acid reflux, cough Primary Care Physician: Elmer Miranda MD [STAFF PHYSICIAN] - Prior records reviewed: Yes Past Medical History: - - Coronary vascular disease, hypertension, hyperlipidemia Surgical History: angioplasty, colectomy, - - Partial colectomy with ileostomy with reversal, postsurgical hernia repair. Cardiac stent x2 Smoking Status: Former smoker - Family History Maternal Family History: Family History (Last Reviewed 12/09/19 @ 13:[address] Elmer Miranda MD) Grandmother CAD (coronary artery disease) Sister Pulmonary embolism Family History: Reports: - - Patient notes a maternal family history of hypertension well with autoimmune hepatitis. Paternal Family History: Family History (Last Reviewed 12/09/19 @ 13:[address] Elmer Miranda MD) Grandmother CAD (coronary artery disease) Sister Pulmonary embolism Family History: Reports: Unknown - She notes that he does not know his paternal family history. Review of Systems General: Denies: Chills, Fever, Sweats Eyes: Denies: Visual changes - bilaterally, Diplopia ENT: Denies: Rhinorrhea, Sore throat Cardiovascular: Reports: Chest pain. Denies: Palpitations Respiratory: Reports: Dyspnea. Denies: Cough, Dyspnea on exertion Gastrointestinal: Denies: Abdominal pain, Nausea, Vomiting, Diarrhea, Melena, Hematochezia Genitourinary: Denies: Dysuria, Hematuria, Frequency Musculoskeletal: Denies: Back pain, Extremity Pain Skin: Denies: Rash, Wounds Neurological: Denies: Headache, Weakness, Numbness Physical Exam Vital Signs/Narrative: Vital Signs Temp Pulse Resp BP Pulse Ox 05/04/20 18:39 97.9 F 68 18 180/100 H 97 Inital Vital Signs reviewed: Yes General: Well nourished, Well developed, No Acute Distress Head: Normocephalic, Atraumatic Eyes: Perrl, EOMI ENT: Moist mucous membranes, No rhinorrhea Neck: Supple, Nontender Cardiovascular: Regular rate, Regular rhythm, No murmurs Respiratory: No distress, CTA bilaterally, Chest nontender Abdomen: Soft, Nontender, Nondistended, Normal bowel sounds Back: Nontender, Normal Inspection Extremities: Nontender, No edema Skin: Normal color, No rash Neurological: Alert, Oriented x3, Cranial nerves II-XII grossly intact, Normal Strength, Normal Sensation Psychological: Normal affect, Normal Mood Diagnostic/Tx/Re-eval Clinical Impression(s) from Imaging Studies Chest X-Ray 05/04/20 18:55 IMPRESSION: No acute cardiopulmonary pathology Electronically Signed: Corky Rocha MD at 19:12 EDT , Service support , Abnormal Lab Results 05/04/20 05/04/20 18:46 18:46 WBC 12.5 H RBC 5.04 Hgb 12.7 L Hct 40.3 MCV 80.0 MCH 25.2 L MCHC 31.5 L RDW Std Deviation 42.0 RDW Coeff of Severiano 14.6 Plt Count 304 MPV 9.9 Immature Gran % (Auto) 0.200 Neut % (Auto) 74.7 H Lymph % (Auto) 17.4 L [place] % (Auto) 5.8 Eos % (Auto) 1.5 Baso % (Auto) 0.4 Absolute Neuts (auto) 9.4 H Absolute Lymphs (auto) 2.18 Nucleated RBC % 0 Sodium 140 Potassium 3.5 Chloride 105 Carbon Dioxide 26.0 Anion Gap 9 BUN 9 Creatinine 0.94 Estim Creat Clear Calc 89.52 Est GFR (MDRD) Af Amer 106 Est GFR (MDRD) Non-Af 88 BUN/Creatinine Ratio 9.6 L Glucose 183 H Calcium 9.0 Magnesium 2.2 Troponin I < 0.015 - Rhythm Strip Rhythm Strip: Sinus Rhythm Rate: 80 Ectopy: None - EKG Initial EKG Interpretation: Sinus Rhythm, No Acute Injury Pattern Prior: Unchanged - Medical Decision Making The patient presents with intermittent chest pain at rest. He states when he exerts himself, it actually improves. He denies any fevers or chills. He denies any cough. EKG is obtained on arrival. There is no acute ischemic change. Patient was given aspirin. He was kept on a monitor. There is no dysrhythmia. Chest x-ray was obtained. There is no evidence of volume overload, pneumothorax, other dangerous process. Cardiac enzymes were negative. The patient is feeling improved. I do feel that he would benefit from observation for cycling of his enzymes and cardiology consultation. I discussed this with Dr. Hanna who agreed. The patient does not want to stay. He outright refuses. He states that he has no interest in staying and that he feels this is all stress related. I did explain to him that this is pretty significant especially given his history of cardiac disease. Patient still not stay. He will leave AGAINST MEDICAL ADVICE. Impression 1. Chest pain with history of NC ED Disposition - Plan for ED Patient: Instructions: ED Chest Pain Atypical Unkn Cause Referrals: Elmer Miranda MD [STAFF PHYSICIAN] -
[2020-05-04 18:55] LABS: Absolute Lymphocyte Count 2.18 X10^3/uL (0.83-4.51); Absolute Neutrophil Count 9.4 X10^3/uL (2.0-7.7); Basophil# 0.05 X10^3/uL; Basophil% 0.4 % (0-1); Eosinophil# 0.19 X10^3/uL; Eosinophils% 1.5 % (0-5); Hematocrit 40.3 % (40-54); Hemoglobin 12.7 g/dL (13.0-16.5); Lymphocyte # 2.18 X10^3/ul (4.0); Lymphocyte % 17.4 % (19-41); Mean Corp Hgb Conc 31.5 g/dL (32-36); Mean Corpuscular Hgb 25.2 pg (27.0-32.0); Mean Platelet Vol. 9.9 fl (6.2-12.0); Monocyte# 0.73 X10^3/uL; Monocyte% 5.8 % (0-10); NRBC Flagged by Analyzer 0 % (0-5); Neutrophil # 9.35 X10^3/uL (2.7-7.7); Neutrophil % 74.7 % (47-70); Platelet Count 304 K/mm3 (150-450); RBC Distribution Width CV 14.6 % (11.6-14.6); Red Blood Count 5.04 M/mm3 (4.6-6.2); White Blood Count 12.5 K/mm3 (4.4-11.0)
--- NOTE | 2020-05-04 18:55 | RAD_ITS ---
STUDY: X-RAY CHEST REASON FOR EXAM: Male, 59 years old. INTERMITTENT CP FOR SEVERAL DAYS. HX OF HEART ATTACK IN THE PAST. TECHNIQUE: AP portable COMPARISON: 10/26/2018 FINDINGS: The lungs are clear and expanded. There is no demonstrated pleural abnormality. Borderline cardiomegaly Normal mediastinum and brenda. Normal visualized pulmonary arteries. Normal visualized aortic arch and descending thoracic aorta. Dorsal spine demonstrates degenerative change.. Normal visualized ribs, clavicles, and shoulders. There is no demonstrated abnormality of the visualized soft tissue structures of the upper abdomen. No significant change since prior exam RAD/Chest 1 View (Portable) IMPRESSION: No acute cardiopulmonary pathology Electronically Signed: Corky Rocha MD at 19:12 EDT , Service support ,
[2020-05-04 19:00] VITALS: O2SAT 98
[2020-05-04] MEDS: Aspirin 81 MG TAB.CHEW 324 MG PO (19:04)
[2020-05-04 19:11] LABS: Anion Gap 9 (5-15); BUN 9 mg/dL (7-18); BUN/Creat Ratio 9.6 RATIO (10-20); Chloride 105 mmol/L (98-107); Creatinine, Serum 0.94 mg/dL (0.70-1.30); EST Glomerular Filtration Rate 88 mL/min (>60); Est Glom Filt Rate - Afr Amer 106 mL/min (>60); Estimated Creatinine Clearance 89.52 ml/min; Glucose 183 mg/dL (74-106); Magnesium 2.2 mg/dL (1.6-2.6); Potassium 3.5 mmol/L (3.5-5.1); Sodium Level 140 mmol/L (136-145)
[2020-05-04 19:44] VITALS: BP 145/90; PULSE 74; RESP 16
== END 2020-05-04 19:45 | disposition home or self-care (01) ==
LOC: ED 19:05
PROVIDERS: Emergency Provider Emergency Medicine; PCP Internal Medicine
DX: R07.9 Chest pain, unspecified (principal); I25.2 Old myocardial infarction; I25.10 Atherosclerotic heart disease of native coronary artery without angina pectoris; Z95.5 Presence of coronary angioplasty implant and graft; I10 Essential (primary) hypertension; E78.5 Hyperlipidemia, unspecified; Z79.899 Other long term (current) drug therapy
CPT/HCPCS: 71045; 80048; 83735; 84484; 85025; 93005; 99285; A4216

== ENCOUNTER → 2020-12-16 15:31 | Outpatient (CLI) | payer BC, SELFPAY ==
[2018-10-24 12:28] VITALS: BMI 36.8
[2020-07-06 11:36] VITALS: BMI 38.4
[2020-12-16 16:01] LABS: Absolute Lymphocyte Count 3.33 X10^3/uL (0.83-4.51); Absolute Neutrophil Count 10.9 X10^3/uL (2.0-7.7); Basophil% 0.6 % (0-1); Eosinophil# 0.28 X10^3/uL; Eosinophils% 1.8 % (0-5); Hematocrit 45.3 % (40-54); Lymphocyte # 3.33 X10^3/ul (0.83-4.51); Lymphocyte % 21.2 % (19-41); Mean Corp Hgb Conc 30.9 g/dL (32-36); Mean Corpuscular Hgb 25.2 pg (27.0-32.0); Mean Corpuscular Volume 81.5 fL (80-94); Mean Platelet Vol. 9.9 fl (6.2-12.0); Monocyte# 1.08 X10^3/uL; Monocyte% 6.9 % (0-10); NRBC Flagged by Analyzer 0 % (0-5); Neutrophil # 10.88 X10^3/uL (2.7-7.7); Neutrophil % 69.1 % (47-70); Platelet Count 359 K/mm3 (150-450); RBC Distribution Width SD 44.9 fl (35.1-43.9); Red Blood Count 5.56 M/mm3 (4.6-6.2); White Blood Count 15.7 K/mm3 (4.4-11.0)
[2020-12-16 16:50] LABS: ALB/GLOB Ratio 0.9 RATIO (0.9-2.4); AST(SGOT) 53 U/L (15-37); Alanine Aminotransfer ALT/SGPT 61 U/L (16-61); Albumin, Serum 3.7 g/dL (3.2-5.0); Alkaline Phosphatase 96 U/L (45-117); Anion Gap 6 (5-15); BUN 12 mg/dL (7-18); BUN/Creat Ratio 11.5 RATIO (10-20); Calcium,Total 9.2 mg/dL (8.5-10.1); Chloride 102 mmol/L (98-107); Creatinine, Serum 1.04 mg/dL (0.70-1.30); EST Glomerular Filtration Rate 78 mL/min (>60); Est Glom Filt Rate - Afr Amer 94 mL/min (>60); Globulin 4.2 g/dL (2.2-4.2); Glucose 116 mg/dL (74-106); Potassium 4.2 mmol/L (3.5-5.1); Protein, Total 7.9 g/dL (6.4-8.2); Sodium Level 138 mmol/L (136-145); T4 Total, Thyroxin 9.6 ug/dL (4.5-12.1); Thyroid Stim Hormone (TSH) 4.67 uIU/mL (0.358-3.74)
== END ==
PROVIDERS: PCP Internal Medicine; Referring Provider Physician Assistant Medical; Visit Provider Physician Assistant Medical
DX: E11.9 Type 2 diabetes mellitus without complications (principal); I25.10 Atherosclerotic heart disease of native coronary artery without angina pectoris; R53.83 Other fatigue; Z85.038 Personal history of other malignant neoplasm of large intestine
CPT/HCPCS: 36415; 80053; 84436; 84443; 85025

== ENCOUNTER 2021-05-11 18:59 | Emergency (ER) | payer BC, SELFPAY ==
[2018-10-24 12:28] VITALS: BMI 36.8
[2021-05-11 19:00] VITALS: BP 167/84; PULSE 105; RESP 17; TEMP 35.7; O2SAT 95; BMI 35.2
--- NOTE | 2021-05-11 19:02 | RAD_ITS ---
EXAM: XR CHEST, 2 VIEWS CLINICAL INDICATION: INJURY TECHNIQUE: Frontal and lateral views of the chest. This report was created using [employer] report generation technology. COMPARISON: Study done 7 days ago FINDINGS: LUNGS AND PLEURAL SPACES: Unremarkable. No consolidation or edema. No pneumothorax. No effusion. HEART: Unremarkable. Cardiac silhouette not enlarged. MEDIASTINUM: Central airways and mediastinal contour are unremarkable. BONES/JOINTS: Unremarkable. Left shoulder is not in the [id number]. SOFT TISSUES: Unremarkable. RAD/Chest PA and Lateral IMPRESSION: No radiographic evidence of acute cardiopulmonary disease. Electronically Signed: George Rogers MD at 19:47 EDT , Service support ,
--- NOTE | 2021-05-11 19:02 | RAD_ITS ---
EXAM: XR LEFT ELBOW COMPLETE, 3 OR MORE VIEWS CLINICAL INDICATION: INJURY pain TECHNIQUE: Frontal, lateral and oblique views of the left elbow. This report was created using [employer] report generation technology. COMPARISON: None. FINDINGS: BONES/JOINTS: Unremarkable. There is no displacement of the anterior or posterior fat pads. No acute fracture. No subluxation. Normal alignment. Preservation of the joint space. No destructive or sclerotic lesions. SOFT TISSUES: Unremarkable. No soft tissue swelling or gas. No radiopaque foreign body. RAD/Elbow min 3 Views IMPRESSION: Negative left elbow. Electronically Signed: George Rogers MD at 19:48 EDT , Service support ,
--- NOTE | 2021-05-11 19:02 | RAD_ITS ---
STUDY: XR Shoulder Min 2 Views REASON FOR EXAM: Male, 61 years old. PAIN TECHNIQUE: XR Shoulder Min 2 Views COMPARISON: None. FINDINGS: Normal glenohumeral articulation. Normal acromioclavicular joint. Normal acromion. Left proximal humeral fracture. The soft tissue structures are unremarkable. Normal visualized pulmonary apex. RAD/Shoulder min 2 Views IMPRESSION: Left humeral fracture. Electronically Signed: George Rogers MD at 19:48 EDT , Service support ,
--- NOTE | 2021-05-11 20:30 | EX.ED.UPPERE ---
HPI History of Present Illness HPI Narrative: Patient presents with left shoulder and left elbow pain that began today. Patient states he was changing light bulbs on a small step ladder when he fell. Patient states he hit a coffee table when he fell. Patient complains of pain in the left shoulder, left elbow, and lower chest. Patient states it is sharp. Patient states it is worse with movement. Patient states he initially had some numbness and tingling in his left hand but this is resolving. Chief Complaint: Upper Extremity Injury Informant: patient Occured/Mechanism Mechanism/Context: Yes fall Onset/Context/Timing Onset: Today Context: Sudden Onset Timing: Continuous Quality of Pain: Sharp Location: Left shoulder, left elbow, chest Worsened by: Movement Relieved by: Ice Associated Symptoms Associated Symptoms: Positive for Parasthesia; Negative for Weakness and Loss of Funtion PFSH [facility] Medical History ACS (acute coronary syndrome) (10/24/18) Atherosclerotic heart disease of [place] coronary artery without angina pectoris GERD (gastroesophageal reflux disease) History of colon cancer History of non-ST elevation myocardial infarction (NSTEMI) (10/24/18) Hypothyroidism Obesity RLS (restless legs syndrome) Type 2 diabetes mellitus Home Medications ergocalciferol (vitamin D2) 50,000 mg PO WE 10/24/18 [History Last Taken 10/17/18] latanoprost 0.005 drp EACH EYE QHS 10/24/18 [History Last Taken 10/23/18] multivitamin 1 ea PO DAILY 10/24/18 [History Last Taken 10/23/18] aspirin 81 mg PO DAILY@0800 tab 10/25/18 [Rx Last Taken Unknown] nitroglycerin 0.4 mg sublingual tablet 0.4 mg SUBLINGUAL Q5-15M PRN #25 tab 10/31/18 [Rx Last Taken Unknown] metformin 500 mg tablet 500 mg PO BID tab 12/09/19 [History Last Taken Unknown] pantoprazole 40 mg tablet,delayed release 40 mg PO DAILY tab 12/09/19 [History Last Taken Unknown] losartan 25 mg tablet 25 mg PO DAILY #90 tab 05/13/20 [Rx Last Taken Unknown] metoprolol tartrate 25 mg tablet 12.5 mg PO BID #90 tab 11/25/20 [Rx Last Taken Unknown] levothyroxine 50 mcg tablet 50 mcg PO DAILY tab 02/22/21 [History Last Taken Unknown] hydrocodone-acetaminophen 1 tab PO Q6H PRN PRN 3 Days #10 tablet 05/11/21 [Rx Last Taken Unknown] Allergy/AdvReac Type Severity Reaction Status Date / Time atorvastatin AdvReac Intermediate Acid reflux Verified 05/11/21 19:02 rosuvastatin [From Crestor] AdvReac Intermediate Acid Verified 05/11/21 19:02 reflux, cough Family History Grandmother CAD (coronary artery disease) Sister Pulmonary embolism Surgical History History of coronary artery stent placement (10/24/18) History of ileostomy History of partial colectomy Social History Smoking Status: Former smoker ROS ROS ED Constitutional Constitutional ED: Denies chills or fever(s) Eyes Eyes: Denies blurry vision or change in vision ENT ENT ED: Denies rhinorrhea or sore throat Cardiovascular Cardiovascular: Reports chest pain; Denies palpitations Respiratory/Chest Respiratory/Chest: Denies cough or dyspnea Gastrointestinal Gastrointestinal: Denies nausea or vomiting Genitourinary Genitourinary ED: Denies dysuria or hematuria Musculoskeletal Musculoskeletal: Reports back pain; Denies neck pain Integumentary Denies abscess or rash Neurologic Neurologic: Denies headache(s) or weakness Allergic/Immunologic Allergic/Immunologic ED: Denies mouth swelling or urticaria EXAM Physical Exam Const Vital Signs: 05/11/21 19:00 Temperature 96.3 F L Temperature Source Temporal Pulse Rate 105 H Respiratory Rate 17 Blood Pressure 167/84 H Blood Pressure Mean 111 Pulse Ox 95 Oxygen Delivery Method Room Air Positive well nourished, well developed and obese General Appearance ED: well developed Nutritional Appearance: obese HEENT Reports moist mucous membranes Neck full ROM Chest Wall Chest Narrative: There is tenderness to palpation over the lower sternum and lower chest bilaterally. There is no bony crepitance or step-off. GI non-tender Palpation: soft Extremity Extremity Narrative: There is tenderness palpation of the left shoulder and left elbow. Range of motion was limited in all motions of the left shoulder and left elbow secondary to pain. There is no deformity noted. Radial pulses are equal bilaterally. Sensation was intact to light touch in the radial, median, and ulnar areas. Strength is 5/5 in the radial, median, and ulnar areas. Neuro oriented x3, CN's II-XII intact bilaterally, moves all extremities, no focal motor deficits and no sensory deficits noted Sensorium / Orientation: alert Psych mental status grossly normal MDM MDM MDM Narrative Medical decision making narrative: PA and lateral chest x-ray was obtained. There were 2 views. On my interpretation, lung kennedy are clear. There is normal cardiac silhouette. Bony thorax is normal. There is no acute process noted. Radiologist also interpreted the x-ray and agrees. X-rays of the left elbow were obtained. There are 3 views. On my interpretation, there is no acute fracture. There is no dislocation. There is no soft tissue swelling. Radiologist also interpreted the x-rays and agrees. X-rays of the left shoulder were obtained. There are 4 views. On my interpretation, there is a fracture of the greater tuberosity of the proximal humerus. There is no dislocation. There is some mild soft tissue swelling. Radiologist also interpreted the x-rays and agrees. Patient was given a dose of [place] here. Patient is given a prescription for [place]. Patient was instructed to use ice to the area. Patient was instructed to follow-up with her primary care physician in 5 to 7 days. Patient states he does not necessarily want to follow-up with orthopedics if it is not necessary. Patient was advised that he could follow-up with his primary care physician and that if it got worse or his primary care physician could refer him to orthopedics if needed. Patient and spouse understood and were agreeable with the plan. All questions were answered. Radiography Diagnostic Testing: Radiology Impression Chest X-Ray 05/11/21 19:02 IMPRESSION: No radiographic evidence of acute cardiopulmonary disease. Electronically Signed: George Rogers MD at 19:47 EDT , Service support , Elbow X-Ray 05/11/21 19:02 IMPRESSION: Negative left elbow. Electronically Signed: George Rogers MD at 19:48 EDT , Service support , Shoulder X-Ray 05/11/21 19:02 IMPRESSION: Left humeral fracture. Electronically Signed: George Rogers MD at 19:48 EDT , Service support , Discharge Plan Triage Chief Complaint: Upper Extremity Injury ED Provider: Binu Lopez Dx/Rx/DC Orders Clinical Impression: Closed fracture of left proximal humerus Instructions: ED Fracture, Shoulder Prescriptions: New hydrocodone-acetaminophen [hydrocodone-acetaminophen] 1 TABLET tablet 1 tab PO Q6H PRN PRN (Reason: Pain) 3 Days Qty: 10 RF: 0 No Action pantoprazole 40 mg tablet,delayed release (DR/EC) 40 mg PO DAILY RF: 0 levothyroxine 50 mcg tablet 50 mcg PO DAILY RF: 0 latanoprost 0.005 drops 0.005 drp EACH EYE QHS RF: 0 ergocalciferol (vitamin D2) 50,000 capsule 50,000 mg PO WE RF: 0 multivitamin 1 EACH tablet 1 ea PO DAILY RF: 0 aspirin 81 MG tablet 81 mg PO DAILY@0800 RF: 0 metformin 500 mg tablet 500 mg PO BID RF: 0 nitroglycerin 0.4 mg tablet, sublingual 0.4 mg SUBLINGUAL Q5-15M PRN (Reason: chest pain) Qty: 25 RF: 3 losartan 25 mg tablet 25 mg PO DAILY Qty: 90 RF: 3 metoprolol tartrate 25 mg tablet 12.5 mg PO BID Qty: 90 RF: 3 Primary Care Provider: Joi Gill Referrals: Joi Gill MD [Primary Care Provider] - 5-7 Days Disposition Disposition: Home, Self Care
[2021-05-11] MEDS: HYDROcodone Bitartrate/Apap 5/325 Tablet PO (20:39)
== END 2021-05-11 21:19 | disposition home or self-care (01) ==
PROVIDERS: Emergency Provider Emergency Medicine; PCP Internal Medicine
DX: S42.202A Unspecified fracture of upper end of left humerus, initial encounter for closed fracture (principal); W11.XXXA Fall on and from ladder, initial encounter; Z87.891 Personal history of nicotine dependence
CPT/HCPCS: 71046; 73030; 73080; 99283

== ENCOUNTER 2024-01-02 11:09 | Emergency (ER) | payer BC, SELFPAY ==
[2018-10-24 12:28] VITALS: BMI 36.8
[2024-01-02 11:11] VITALS: BP 134/90; PULSE 79; RESP 16; TEMP 35.5; O2SAT 100; BMI 34.5
--- NOTE | 2024-01-02 11:51 | EX.ED.GENINJ ---
HPI History of Present Illness Chief Complaint: Laceration Informant: patient Narrative Narrative: Patient is a [id number] male presenting with laceration to his left hand. Patient was using his pocket knife to cut open some plastic when he accidentally stabbed the back of his right hand. He initially had a bleeding at the site. Later on he looked down and noticed there is swelling of the hand proximal to the laceration. He pushed on it and then he had blood squirted out. This concerned him and he wanted to come and evaluate. He states he is always been very anxious about bleeding because his sister of a blood clot. He is not on any blood thinners. Denies any associated numbness or tingling. No other complaints or concerns at this time. Patient notes he is diabetic. Tetanus Immunization: <5 years [facility] Medical History Hypothyroidism History of colon cancer History of non-ST elevation myocardial infarction (NSTEMI) (10/24/18) Type 2 diabetes mellitus Obesity RLS (restless legs syndrome) GERD (gastroesophageal reflux disease) Atherosclerotic heart disease of [place] coronary artery without angina pectoris ACS (acute coronary syndrome) (10/24/18) Home Medications ?Medication ?Instructions ?Recorded ?Last Taken ?Type ergocalciferol (vitamin D2) 1,250 50,000 mg PO WE vitamin 10/24/18 10/17/18 History mcg (50,000 unit) capsule latanoprost 0.005 % eye drops 0.005 drp EACH EYE QHS glaucoma 10/24/18 10/23/18 History multivitamin 1 ea PO DAILY vitamin 10/24/18 10/23/18 History aspirin 81 mg tablet,delayed 81 mg PO DAILY@0800 10/25/18 Unknown Rx release nitroglycerin 0.4 mg sublingual 0.4 mg sublingual Q5-15M PRN chest 10/31/18 Unknown Rx tablet pain #25 tabs metformin 500 mg tablet 500 mg PO BID diabetes 12/09/19 Unknown History pantoprazole 40 mg tablet,delayed 40 mg PO DAILY 12/09/19 Unknown History release levothyroxine 50 mcg tablet 50 mcg PO DAILY 02/22/21 Unknown History losartan 25 mg tablet 25 mg PO DAILY #90 tabs 01/15/23 Unknown Rx metoprolol tartrate 25 mg tablet 12.5 mg (1/2 x 25 mg) PO BID #90 03/12/23 Unknown Rx tabs Allergy/AdvReac Type Severity Reaction Status Date / Time atorvastatin AdvReac Intermediate Acid reflux Verified 03/15/23 13:46 rosuvastatin (From Crestor) AdvReac Intermediate Acid Verified 03/15/23 13:46 reflux, cough Family History Grandmother CAD (coronary artery disease) Sister Pulmonary embolism Surgical History History of partial colectomy History of ileostomy History of coronary artery stent placement (10/24/18) Social History Smoking Status: Former smoker ROS ROS ED Constitutional Constitutional ED: Denies chills or fever(s) Gastrointestinal Gastrointestinal: Denies nausea Musculoskeletal Musculoskeletal: Denies arthralgias or myalgias Integumentary Reports other Details: Laceration to left hand Neurologic Neurologic: Denies paresthesias or weakness Psychiatric Psychiatric: Denies anxiety Hematologic/Lymphatic Hematologic/Lymphatic: Denies easy bleeding or easy bruising EXAM Physical Exam Const Vital Signs: 01/02/24 11:11 01/02/24 11:11 Temperature 95.9 F L Temperature Source Temporal Pulse Rate 79 79 Respiratory Rate 16 16 Blood Pressure 134/90 H 134/90 H Blood Pressure Mean 104 104 Pulse Ox 100 100 Oxygen Delivery Method Room Air Room Air Positive well nourished and well developed General Appearance ED: well developed and NAD HEENT atraumatic Chest Wall inspection of chest normal Resp normal respiratory effort Extremity normal to inspection and full ROM General Extremety ED: Negative for deformity General Extremity: Negative for deformity Neuro oriented x3 Neuro Narrative: Normal range of motion with intrinsic and extrinsic muscles of the hand Motor Exam: strength 5/5 throughout; Negative for muscle tone abnormal Psych mental status grossly normal Skin Skin Narrative: 1.1 cm slightly irregular crescent shaped laceration to the dorsum of the left hand. No active bleeding at this time. MDM MDM MDM Narrative Medical decision making narrative: Patient is very for laceration to the dorsum of the left hand. Appears nontoxic and in no acute distress. No active bleeding. No gaping of the wound. No underlying bony tenderness. I do not think he requires any imaging at this time. He is normal range of motion and strength of the hand. There is no significant bleeding, hematoma collection and what attempted to I do not appreciate any gaping. I think this would be amenable to repair with lighted Derm. Wound will be cleansed and Lidoderm applied over the wound. It is already well-approximated. Patient agreeable with this plan of care. His tetanus is up-to-date he does not require booster at this time. Given his relatively clean wound I do not think he requires prophylactic antibiotics. Counseled on wound care, follow-up with PCP and return precautions to the emergency room Procedure note?area cleansed with sterile saline and then chlorhexidine. Wound edges well-approximated and Dermabond applied. Patient Toller procedure well no immediate complications. Discharge Plan Triage Chief Complaint: Laceration ED Provider: Heike Olea Dx/Rx/DC Orders Clinical Impression: Laceration of hand, left Instructions: ED Laceration, Extremity: Skin Glue Prescriptions: No Action pantoprazole 40 mg tablet,delayed release (DR/EC) 40 mg PO DAILY levothyroxine 50 mcg tablet 50 mcg PO DAILY latanoprost 0.005 drops 0.005 drp EACH EYE QHS ergocalciferol (vitamin D2) 50,000 capsule 50,000 mg PO WE multivitamin 1 EACH tablet 1 ea PO DAILY aspirin 81 MG tablet 81 mg PO DAILY@0800 0RF metformin 500 mg tablet 500 mg PO BID nitroglycerin 0.4 mg tablet, sublingual 0.4 mg SUBLINGUAL Q5-15M PRN (Reason: chest pain) Qty: 25 3RF Rx Instructions: until response; do not exceed 3 doses per episode losartan 25 mg tablet 25 mg PO DAILY Qty: 90 3RF metoprolol tartrate 25 mg tablet 12.5 mg PO BID Qty: 90 3RF Primary Care Provider: Joi Gill Referrals: Joi Gill MD [Primary Care Provider] - Print Language: Upper Sorbian Disposition Disposition: Home, Self Care Discharge Date/Time: 01/02/24 12:39
== END 2024-01-02 12:39 | disposition home or self-care (01) ==
LOC: ED 12:15
PROVIDERS: Emergency Provider Emergency Medicine; PCP Internal Medicine; Visit Provider Emergency Medicine
DX: S61.412A Laceration without foreign body of left hand, initial encounter (principal); E11.9 Type 2 diabetes mellitus without complications; Z87.891 Personal history of nicotine dependence; K21.9 Gastro-esophageal reflux disease without esophagitis; I25.10 Atherosclerotic heart disease of native coronary artery without angina pectoris; W26.0XXA Contact with knife, initial encounter
CPT/HCPCS: 12001; 99282

== ENCOUNTER 2025-01-14 03:02 | Inpatient (IN) | payer OTHER, SELFPAY ==
[2018-10-24 12:28] VITALS: BMI 36.8
[2025-01-14] VITALS (14 sets, daily range): BP systolic 141–164; BP diastolic 81–94; PULSE 67–85; RESP 13–25; TEMP 36.4–36.8; O2SAT 77–100; BMI 36.3
--- NOTE | 2025-01-14 03:04 | CT_ITS ---
PROCEDURE: STROKE CTA HEAD AND NECK W/CON 01/14/2025 REASON FOR EXAM: NEURO DEFICIT, ACUTE, STROKE SUSPECTED TECHNIQUE: CTA imaging of the head and neck from the aortic arch to the skull vertex with out contrast and with intravenous contrast. Multiplanar and multisequence images were obtained. 3D post processing was performed One or more dose reduction techniques were used (e.g., Automated exposure control, adjustment of the mA and/or kV according to patient size, use of iterative reconstruction technique). RADIATION DOSE SUMMARY: CTDlvol: 20.6 mGy DLP: 853 mGycm COMPARISON: Same date CT head FINDINGS: Aortic Arch: Normal size and branching pattern. Mild atherosclerotic plaque. Brachiocephalic and Subclavians: Unremarkable RIGHT Carotid: Right CCA: Mild calcified plaque at the carotid bulb. Right ICA: Unremarkable. Maximum stenosis (NASCET): <50% Right ECA: Unremarkable. LEFT Carotid: Left CCA: Mild calcified and soft plaque. Left ICA: Mild calcified and soft plaque. Maximum stenosis (NASCET): <50% Left ECA: Unremarkable. Vertebrals: Left dominant. Arise from the subclavians. Both vertebrals form the basilar. RIGHT Vertebral: Unremarkable. LEFT Vertebral: Minimal calcified plaque. Anatomy: [place] anatomy is normal. Aneurysm or AVM: None identified Anterior cerebral arteries: Unremarkable: Middle cerebral arteries: Unremarkable. Basilar artery: Unremarkable. Posterior cerebral arteries: Unremarkable. Other major branches of the posterior circulation: Unremarkable. Major venous structures: Unremarkable. Other findings: Neck: No lymphadenopathy. Lungs: Lung apices are clear. Bones: Bones are unremarkable. CT/STROKE CTA Head AND Neck W/Con IMPRESSION: No hemodynamically significant narrowing or large vessel occlusion of the head or neck vasculature. Reading Location: [id number]
--- NOTE | 2025-01-14 03:04 | CT_ITS ---
PROCEDURE: STROKE BRAIN/HEAD WITHOUT CONT 01/14/2025 REASON FOR EXAM: NEURO DEFICIT, ACUTE, STROKE SUSPECTED TECHNIQUE: Head CT without intravenous contrast. Coronal and Sagittal reconstruction series were provided. One or more dose reduction techniques were used (e.g., Automated exposure control, adjustment of the mA and/or kV according to patient size, use of iterative reconstruction technique. RADIATION DOSE SUMMARY: CTDlvol: 45.0 mGy DLP: 864 mGycm COMPARISON: None FINDINGS: Brain: No acute intracranial hemorrhage, mass effect, or midline shift. [place]- white differentiation is maintained. CSF Spaces: Mild generalized cerebral atrophy Sinuses/Mastoids: Mucosal thickening and near-complete opacification of the left maxillary sinus. Bones: No displaced calvarial fracture. Trace nonobstructing debris in the right external auditory canal, likely cerumen. CT/STROKE Brain/Head without Cont IMPRESSION: 1. No acute intracranial abnormality. 2. Left maxillary sinus disease. Reading Location: [facility]
--- NOTE | 2025-01-14 03:04 | EKG12_ITS ---
Test Reason : STROKE Blood Pressure : */* mmHG Vent. Rate : 71 BPM Atrial Rate : 71 BPM P-R Int : 168 ms QRS Dur : 92 ms QT Int : 392 ms P-R-T Axes : 15 -28 -6 degrees QTcB Int : 425 ms Normal sinus rhythm Minimal voltage criteria for LVH, may be normal variant ( R in aVL ) Borderline ECG Confirmed by TANESHA HAILE, TONNY ([id number]), film and video editor ANTONIA HALE ([id number]) on 01/19/2025 7:10:37 AM Referred By: Confirmed By: TONNY ALMENDAREZ MD
--- NOTE | 2025-01-14 03:05 | ED.VIS.STROK ---
HPI History of Present Illness Chief Complaint: Stroke Alert Informant: patient, spouse/S.O. and EMS Narrative Narrative: Patient is a 64-year-old male with past medical history of hypertension type 2 diabetes and coronary artery disease. According to he was last known well around 11 PM. She states that the patient awoke secondary to sensation of eye burning and was attempting to get up so he could treat this and at that time realized he could not move his right side and was slurring his speech. Secondary to this EMS was called. EMS states when they arrived the patient is awake and alert but with dysarthria and right sided paralysis. They report his blood sugar is approximate 140. However based on the history and exam there is high concern for acute stroke and therefore stroke alert was activated prior to arrival. According to patient and other than having eye irritation earlier this evening he has been at his baseline health without sick symptoms or change in medication [facility] Medical History Essential hypertension Hypothyroidism History of colon cancer History of non-ST elevation myocardial infarction (NSTEMI) (10/24/18) Type 2 diabetes mellitus Obesity RLS (restless legs syndrome) GERD (gastroesophageal reflux disease) Atherosclerotic heart disease of [place] coronary artery without angina pectoris ACS (acute coronary syndrome) (10/24/18) Home Medications ?Medication ?Instructions ?Recorded ?Last Taken ?Type ergocalciferol (vitamin D2) 1,250 50,000 mg PO WE vitamin 10/24/18 10/17/18 History mcg (50,000 unit) capsule latanoprost 0.005 % eye drops 0.005 drp EACH EYE [facility] glaucoma 10/24/18 10/23/18 History multivitamin 1 ea PO DAILY vitamin 10/24/18 10/23/18 History aspirin 81 mg tablet,delayed 81 mg PO DAILY@0800 10/25/18 Unknown Rx release pantoprazole 40 mg tablet,delayed 40 mg PO DAILY 12/09/19 Unknown History release levothyroxine 50 mcg tablet 50 mcg PO DAILY 02/22/21 Unknown History metoprolol tartrate 25 mg tablet 12.5 mg (1/2 x 25 mg) PO BID #90 03/12/23 Unknown Rx tabs metformin 500 mg tablet 750 mg PO BID diabetes 03/18/24 Unknown History nitroglycerin 0.4 mg sublingual 0.4 mg sublingual Q5-15M PRN chest 05/13/24 Unknown Rx tablet pain #25 tabs losartan 50 mg tablet 50 mg PO DAILY #90 tabs 09/29/24 Unknown Rx Allergy/AdvReac Type Severity Reaction Status Date / Time atorvastatin AdvReac Intermediate Acid reflux Verified 01/14/25 03:03 rosuvastatin (From Crestor) AdvReac Intermediate Acid Verified 01/14/25 03:03 reflux, cough Family History (Updated 01/14/25 @ 04:[address] Gladys Marin MD) Grandmother CAD (coronary artery disease) Sister Pulmonary embolism Mother Autoimmune hepatitis Surgical History History of partial colectomy History of ileostomy History of coronary artery stent placement (10/24/18) Social History (Updated 01/14/25 @ 04:[address] Gladys Marin MD) household members: spouse Smoking Status: Current some day smoker how long ago did patient quit smoking: Notes remotely quit cigarette tobacco use (before 1984), occasional cigar. alcohol intake: current alcohol intake frequency: holidays/special occasions only substance use type: does not use ROS ROS ED Constitutional Constitutional ED: Denies chills or fever(s) Eyes Eyes: Reports other Details: Positive eye irritation ; Denies change in vision or diplopia ENT ENT ED: Denies sore throat Cardiovascular Cardiovascular: Denies chest pain Respiratory/Chest Respiratory/Chest: Denies cough or dyspnea Gastrointestinal Gastrointestinal: Denies abdominal pain, diarrhea, nausea or vomiting Genitourinary Genitourinary ED: Denies dysuria Musculoskeletal Musculoskeletal: Denies myalgias Integumentary Denies rash Neurologic Neurologic: Reports paresthesias and weakness; Denies headache(s) Hematologic/Lymphatic Hematologic/Lymphatic: Denies easy bleeding or easy bruising EXAM Physical Exam Const Vital Signs: 01/14/25 03:03 01/14/25 03:12 01/14/25 03:30 Temperature 98.2 F Temperature Source Oral Pulse Rate 72 74 Respiratory Rate 20 H 20 H Blood Pressure 160/89 H 147/90 H Blood Pressure Mean 112 109 Pulse Ox 95 99 Oxygen Delivery Method Room Air Room Air Room Air 01/14/25 04:00 Temperature Temperature Source Pulse Rate 76 Respiratory Rate 20 H Blood Pressure 161/81 H Blood Pressure Mean 107 Pulse Ox 77 Oxygen Delivery Method Room Air Positive well nourished, well developed and obese General Appearance ED: well developed Nutritional Appearance: obese HEENT Reports moist mucous membranes atraumatic Eyes PERRL and EOMs intact bilaterally General Eye ED: Negative for scleral icterus Neck supple Neck Narrative: No nuchal rigidity or meningeal signs Resp normal respiratory effort and clear to auscultation bilaterally Resp Narrative: No nasal flaring retractions tachypnea or accessory muscle use Cardio regular rate and regular rhythm Cardio Narrative: Radial and carotid pulses are equal and symmetric GI normal to inspection, nondistended, normoactive bowel sounds, soft to palpation, non-tender, non-distended and no masses GI Narrative: No voluntary guarding or rigidity or pulsatile mass Auscultation: normoactive bowel sounds Palpation: soft Extremity normal to inspection Extremity Narrative: No asymmetric edema no pitting edema negative Homans' sign bilaterally No signs of long bone injury Neuro oriented x3 Neuro Narrative: GCS of 15 Patient is awake and alert and oriented to person place and time NIH stroke scale score initially of 9. Patient received a score of 1 secondary to minor facial palsy. He received a score of 3 for right arm weakness with no effort against gravity. He receives a score of 3 for right leg weakness with no effort against gravity. He receives a score of 1 for mild to moderate sensory loss. He receives a score of 1 for mild to moderate dysarthria. Sensorium / Orientation: alert Psych Mood & Affect: tearful Skin no rashes or lesions noted and no wounds General Skin Exam: Negative for jaundice MDM MDM MDM Narrative Medical decision making narrative: Patient arrived to the ER awake and alert but had right-sided facial droop slurred speech and right sided arm and leg weakness. This correlates with EMS's prearrival stroke alert. Based on the high value of his NIH stroke scale score he was sent for CT and CTA of the head and neck. Based on the last known well from of 11 PM he is approaching the 4-1/2-hour window for TNK. Therefore I did order the medication so was ready to give if neurology agreed with its use. I also discussed the risks and benefits of TNK with the patient and so that way informed consent was completed if neurology also agreed with providing the medication. The patient's noncontrast CT revealed no signs of acute bleed. However by the time it was resulted the neurologist still had not completed an evaluation of the patient. After neurology completed their evaluation he was technically outside the 4-1/2-hour window. Neurology recommends that as he is technically outside the 4 and half hour window that is too high risk to provide the TNK medication and therefore it was held and the order canceled. The CTA of the head and neck revealed no sign of LVO either and therefore there is no need for transfer to [facility]. The patient has had slight improvement of his symptoms spontaneously with his stroke scale score changing from initial value of 9 to a repeat value of 7 as there is now no sensory deficit or facial paralysis. As the patient does not have an acute hemorrhagic stroke or signs of LVO but still has symptoms concerning for stroke with dysarthria and right-sided weakness he will need to be kept in the hospital for further workup. Secondary to this the case was discussed with the hospitalist who agrees to accept the patient for further care. History & Record Review Discussion w/independent historian: EMS personnel, Patient and Significant other Lab Data Attestation: I reviewed the patient's lab results. Labs: Laboratory Results - last 24 hr 01/14/25 01/14/25 03:04 03:46 WBC 12.5 H RBC 5.05 Hgb 12.8 L Hct 40.4 MCV 80.0 MCH 25.3 L MCHC 31.7 L RDW Std Deviation 44.1 H RDW Coeff of [place] 15.3 H Plt Count 319 MPV 10.0 Immature Gran % (Auto) 0.400 Neut % (Auto) 59.3 Lymph % (Auto) 27.2 Graham % (Auto) 9.5 Eos % (Auto) 3.0 Baso % (Auto) 0.6 Absolute Neuts (auto) 7.4 Absolute Lymphs (auto) 3.39 Nucleated RBC % 0 PT 13.0 INR 1.0 APTT 29.9 Sodium 137 Potassium 3.7 Chloride 100 Carbon Dioxide 22.7 Anion Gap 14 BUN 11 Creatinine 0.93 Estim Creat Clear Calc 107.61 Est GFR (MDRD) Non-Af 93 BUN/Creatinine Ratio 11.9 Glucose 139 H Calcium 9.3 Magnesium 1.9 TSH 5.660 H Urine Color Yellow Urine Clarity Clear Urine pH 6.5 Ur Specific [place] 1.010 Urine Protein Negative Urine Glucose (UA) Normal Urine Ketones Negative Urine Occult Blood Negative Urine Nitrite Negative Urine Bilirubin Negative Urine Urobilinogen Normal Ur Leukocyte Esterase Negative Urine RBC 0 SEEN Urine WBC 0 SEEN Ur Squamous Epith Cells 0 SEEN Urine Bacteria 0 SEEN Urine Mucus 0 SEEN Radiography Diagnostic Testing: Clinical Impression(s) from Imaging Studies Brain CT 01/14/25 03:04 IMPRESSION: 1. No acute intracranial abnormality. 2. Left maxillary sinus disease. Reading Location: [facility] Head/Neck CTA 01/14/25 03:04 IMPRESSION: No hemodynamically significant narrowing or large vessel occlusion of the head or neck vasculature. Reading Location: [facility] 1 view chest x-ray as interpreted by the emergency medicine physician reveals no acute infiltrate pneumothorax or pleural effusion Management Discussion w/another healthcare provider: Hospitalist and Educational Psychology Teacher Critical Care Time Critical Care Time: Yes Critical care time (excluding procedures): Discussing w/Patient &/or Family/Retort Furnace Operator, Discussing w/Consultants and - (Critical care time of 31 minutes) Discharge Plan Dx/Rx/DC Orders Clinical Impression: Acute cerebrovascular accident (CVA), Hyperlipemia, Essential hypertension, Type 2 diabetes mellitus, Coronary artery disease Disposition Disposition: Acute Care Hospital [facility] Discharge Date/Time: 01/14/25 04:46
--- OUTSIDE RECORDS SUMMARY | 2025-01-14 03:11 | XMS RPT_ITS | CCD ---
Author Organization [facility] Care Team Providers Care Estate Administrator Name Role Phone Bettye Powell MD Primary Care Provider GANTA, BETTYE Primary Care Unavailable DEMETRIS HAMILTON Attending Unavailable RAYMUNDO GALLEGOS Admitting Unavail able RAYMUNDO GALLEGOS Attending Unavail able RAYMUNDO GALLEGOS Referring Unavail able GANTA, BETTYE Primary Care Unavailable Bettye Powell MD Primary Care Provider [phone] Bettye Powell MD Primary Care Provider Ganta, Bettye Referring Unavailable Sherine Stack Attending Unavail able Ganta, Bettye Primary Care Unavailable Ganta, Bettye Primary Care Unavailable Heike Olea Attending Unavailable LIZETH BRADFORD Attending Unavailable GANTA, BETTYE Primary Care Unavailable LIZETH BRADFORD Referring Unavailable GANTA, BETTYE Primary Care Unavailable GANTA, BETTYE Attending Unavailable GANTA, BETTYE Primary Care Unavailable GANTA, BETTYE Primary Care Unavailable EVERETTE CROSS Attending Unavailable GANTA, BETTYE Primary Care Unavailable EVERETTE CROSS Referring Unavailable GANTA, BETTYE Primary Care Unavailable EVERETTE CROSS Referring Unavailable GANTA, BETTYE Primary Care Unavailable DON SALGADO Referring Unavailable GANTA, BETTYE Primary Care Unavailable GANTA, BETTYE Attending Unavailable GANTA, BETTYE Primary Care Unavailable Rachel Guthrie PA-C Unavailable Older HPLC CHEMIST.Amada THAPA Unavailable Rere Gonzales PA-C Unavailable [phone] Allergies Allergy Classification Reported Allergen(s) Allergy Type Date of Onset Reaction(s) Facility (20 sources) House dust mite; Translations: [DUST MITES] Propensity to adverse reactions 0 [facility] (15 sources) atorvastatin; Translations: [ATORVASTATIN] Drug Allergy 3 GI Upset [facility] (15 sources) rosuvastatin; Translations: [ROSUVASTATIN] Drug Allergy 3 GI Upset [facility] (1 source) atorvastatin Drug Allergy 4 [facility] (1 source) rosuvastatin Drug Allergy 4 [facility] Medications Current Medications Medication Drug Class(es) Dates Sig (Normalized) Sig (Original) acetaminophen 500 mg oral tablet (20 sources) take 1 tablet by mouth every eight hours as needed acetaminophen (TYLENOL) 500 mg tablet Take 500 mg by mouth every 8 hours as needed. Active Comment on above: Take 500 mg by mouth every 8 hours as needed. acetaminophen 325 mg / oxyCODONE hydrochloride 5 mg oral tablet (8 sources) Opioid Agonist Start: 07-11-2022 End: 07-14-2022 take 1 tablet by mouth every six hours as needed for pain oxyCODONE-acetamino phen (PERCOCET) 5-325 mg tablet Indications: Ureteral calculus, right Take 1 tablet by mouth every 6 hours as needed for pain for up to 3 days. 8 tablet 0 07/11/2022 07/14/2022 Active Start: 06-24-2022 End: 06-27-2022 take 1 tablet by mouth every six hours as needed for pain oxyCODONE-acetaminophen (PERCOCET) 5-325 mg tablet Indications: Ureterolithiasis Take 1 tablet by mouth every 6 hours as needed for pain for up to 3 days. 12 tablet 0 06/24/2022 06/27/2022 Active Comment on above: Take 1 tablet by bob th every 6 hours as needed for pain for up to 3 days. aspirin 81 mg chewable tablet (20 sources) Platelet Aggregation Inhibitor, Nonsteroidal Anti-inflammatory Drug Start: 04-03-20 take 1 tablet by mouth once daily aspirin 81 mg chewable tablet Indications: Type 2 diabetes mellitus without complication, without long-term current use of insulin (HCC) Take 1 tablet by mouth once daily. 90 tablet 3 04/03/2018 Active Comment on above: Take 1 tablet by bob th once daily. cephalexin 500 mg oral capsule (8 sources) Cephalosporin Antibacterial Start: 06-24-20 End: 11-19-20 22 take 1 capsule by mouth twice daily cephALEXin (KEFLEX) 500 mg capsule Take 1 capsule by mouth twice daily for 7 days. 14 capsule 0 06/24/2022 07/01/2022 Active Comment on above: Take 1 capsule by [facility] twice daily for 7 days. cetirizine hydrochloride 10 mg oral tablet (20 sources) Histamine-1 Receptor Antagonist take 1 tablet by mouth once daily as needed cetirizine (ZYRTEC) 10 mg tablet Take 10 mg by mouth once daily as needed for cold/allergy symptoms. Active Comment on above: Take 10 mg by mouth once daily. Take 10 mg by mouth once daily as needed for cold/allergy symptoms. COMPOUNDED PRESCRIPTION (20 sources) Start: 04-24-20 18 COMPOUNDED PRESCRIPTION Indications: Type 2 diabetes mellitus without complication, without long-term current use of insulin (HCC) , Plantar fasciitis Diabetic arch supports Dx: E11.9 M72.2 2 Each 04/24/2018 Active Start: 04-24-2018 COMPOUNDED PRE SCRIPTION Indications: Type 2 diabetes mellitus without complication, without long-term current use of insulin (HCC) , Plantar fasciitis Diabetic arch supports Dx: E11.9 M72.2 2 Each 0 04/24/2018 Active Comment on above: Diabetic arch suppor ts Dx: E11.9 M72.2 ergocalciferol 1.25 mg oral capsule (20 sources) Provitamin D2 Compound Start: 09-29-19 take 1 capsule by mouth every week ergocalciferol 50,000 unit capsule (VITAMIN D2, DRISDOL) Indications: Vitamin D deficiency Take 1 capsule by mouth one time a week. 12 capsule 1 09/29/2024 Active Start: 05-12-2024 End: 09-26-2024 take 1 capsule by mouth every week ergocalciferol 50,000 unit capsule (VITAMIN D2, DRISDOL) Indications: Vitamin D deficiency Take 1 capsule by mouth one time a week. 12 capsule 1 05/12/2024 09/26/2024 Discontinued Start: 01-03-2023 End: 05-10-2024 take 1 capsule by mouth every week ergocalciferol 50,000 unit capsule (VITAMIN D2, DRISDOL) Indications: Vitamin D deficiency Take 1 capsule by mouth one time a week. 12 capsule 3 01/03/2023 11/26/2023 Discontinued Start: 10-26-2021 End: 12-29-2022 take 1 capsule by mouth every week ergocalciferol 50,000 unit capsule (VITAMIN D2, DRISDOL) Indications: Vitamin D deficiency Take 1 capsule by mouth one time a week. 13 capsule 3 01/06/2022 12/29/2022 Discontinued Comment on above: TAKE 1 CAPSULE ONCE WEEKLY Take 1 capsule by [facility] one time a week. iv contrast (will be provided with radiology test) (1 source) Start: 09-17-19 End: 09-18-19 iv contrast (will be provided with radiology test) Indications: Gross hematuria CT Urogram WO/W Inject, intravenously, once for 1 dose.No IV access, insert saline lock prior to the beginning of sedation, infusion, injection of imaging exam. Discontinue saline lock post exam. If Pt. has a central line or IVAD, may access for administration according to line specific nursing protocol. Once exam is complete flush line and de-access according to line specific nursing protocol in the CT contrast administration guidelines link. 1 Each 0 09/17/2023 09/18/2023 Active Comment on above: CT Urogram WO/W Inje ct, intravenously, once for 1 dose.No IV access, insert saline lock prior to the beginning of sedation, infusion, injection of imaging exam. Discontinue saline lock post exam. If Pt. has a central line or IVAD, may access for administration according to line specific nursing protocol. Once exam is complete flush line and de-access according to line specific nursing protocol in the CT contrast administration guidelines link. latanoprost 0.05 mg/ml ophthalmic solution (20 sources) Prostaglandin Analog Start: 04-18-20 17 take 1 drop(s) into the eye(s) once daily at bedtime latanoprost (XALATAN) 0.005 % ophthalmic solution Use 1 Drop in both eyes daily at bedtime. 04/18/2017 Active Start: 04-18-2017 take 1 drop(s) into the eye(s) once daily at bedtime latanoprost (XALATAN) 0.005 % ophthalmic solution Use 1 Drop in both eyes daily at bedtime. 0 04/18/2017 Active Comment on above: Use 1 Drop in both e yes daily at bedtime. levothyroxine sodium 0.05 mg oral tablet (20 sources) l-Thyroxine Start: 09-29-19 take 1 tablet by mouth once daily for thyroid dysfunction levothyroxine (LEVOXYL) 50 mcg tablet Indications: Hypothyroidism, unspecified type Take 1 tablet by mouth once daily. Take on empty stomach. For Thyroid 90 tablet 1 09/29/2024 Active Start: 05-12-2024 End: 09-26-2024 take 1 tablet by mouth once daily for thyroid dysfunction levothyroxine (LEVOXYL) 50 mcg tablet Indications: Hypothyroidism, unspecified type Take 1 tablet by mouth once daily. Take on empty stomach. For Thyroid 90 tablet 1 05/12/2024 09/26/2024 Discontinued Start: 12-13-2022 End: 05-10-2024 take 1 tablet by mouth once daily for thyroid dysfunction levothyroxine (LEVOXYL) 50 mcg tablet Indications: Hypothyroidism, unspecified type Take 1 tablet by mouth once daily. Take on empty stomach. For Thyroid 90 tablet 3 12/13/2022 11/26/2023 Discontinued Start: 12-19-2021 End: 12-11-2022 take 1 tablet by mouth once daily for thyroid dysfunction levothyroxine (LEVOXYL) 50 mcg tablet Indications: Hypothyroidism, unspecified type Take 1 tablet by mouth once daily. Take on empty stomach. For Thyroid 90 tablet 3 12/19/2021 12/11/2022 Discontinued Start: 12-28-2020 take 1 tablet by bob th once daily for thyroid dysfunction levothyroxine (LEVOXYL) 50 mcg tablet Indications: Hypothyroidism, unspecified type Take 1 tablet by mouth once daily. Take on empty stomach. For Thyroid 90 tablet 3 12/28/2020 Active Comment on above: Take 1 tablet by bob th once daily. Take on empty stomach. For Thyroid losartan potassium 25 mg oral tablet (20 sources) Angiotensin 2 Receptor Berta Start: 2 End: take 1 tablet by mouth once daily losartan (COZAAR) 25 mg tablet Take 1 tablet by mouth once daily. 90 tablet 1 11/26/2023 Active Comment on above: Take 1 tablet by bob th once daily. metFORMIN hydrochloride 500 mg oral tablet (20 sources) Biguanide Start: 5 metFORMIN (GLUCOPHAGE) 500 mg tablet Take 2 pills with breakfast and 1 pill with dinner 180 tablet 1 09/29/2024 Active Start: 05-12-2024 End: 09-26-2024 metFORMIN (GLUCOPHAGE) 500 m g tablet Take 2 pills with breakfast and 1 pill with dinner 180 tablet 1 05/12/2024 09/26/2024 Discontinued Start: 05-04-2023 End: 05-10-2024 metFORMIN (GLUCOPHAGE) 500 m g tablet Take 2 pills with breakfast and 1 pill with dinner 270 tablet 3 05/04/2023 11/26/2023 Discontinued Start: 12-22-2020 End: 05-04-2023 take 1 tablet by mouth twice daily at mealtime metFORMIN (GLUCOPHAGE) 500 mg tablet Take 1 tablet by mouth twice daily with meals. 180 tablet 3 12/22/2020 02/01/2022 Discontinued Comment on above: Take 1 tablet by bob th twice daily with meals. Take 2 pills with br eakfast and 1 pill with dinner metoprolol tartrate 25 mg oral tablet (20 sources) beta-Adrenergic Berta Start: 09-29-2024 metoprolol tartrate, short acting, (LOPRESSOR) 25 mg tablet Takes half of pill twice daily 90 tablet 1 09/29/2024 Active Start: 05-12-2024 End: 09-26-2024 metoprolol tartrate, short a cting, (LOPRESSOR) 25 mg tablet Takes half of pill twice daily 90 tablet 1 05/12/2024 09/26/2024 Discontinued Start: 01-03-2023 End: 05-10-2024 metoprolol tartrate, short a cting, (LOPRESSOR) 25 mg tablet Takes half of pill twice daily 90 tablet 3 01/03/2023 11/26/2023 Discontinued Start: 12-22-2020 End: 12-29-2022 metoprolol tartrate, short a cting, (LOPRESSOR) 25 mg tablet Takes half of pill twice daily 90 tablet 3 12/22/2020 02/01/2022 Discontinued Comment on above: Takes half of pill t wice daily multivitamin tablet (20 sources) take 1 tablet by mouth once daily multivitamin tablet Indications: Rectal cancer (HCC) , Cancer of sigmoid colon (HCC) , BMI 39.0-39.9,adult Take 1 tablet by mouth once daily. Active take 1 tablet by mouth once angel y multivitamin tablet Indications: Rectal cancer (HCC) , Cancer of sigmoid colon (HCC) , BMI 39.0-39.9,adult Take 1 tablet by mouth once daily. 0 Active Comment on above: Take 1 tablet by bob th once daily. nitroglycerin 0.4 mg sublingual tablet (20 sources) Nitrate Vasodilator Start: 08-27-19 nitroglycerin sublingual (NITROQUICK) 0.4 mg SL tablet Dissolve 1 tablet under the tongue every 5 minutes as needed for Chest Pain. 1 Bottle of 25 2 08/27/2020 Active Comment on above: Dissolve 1 tablet un isela the tongue every 5 minutes as needed for Chest Pain. ondansetron 4 mg disintegrating oral tablet (8 sources) Serotonin-3 Receptor Antagonist Start: 06-24-20 End: 07-01-20 take 1 tablet by mouth every six hours as needed ondansetron orally disintegrating (ZOFRAN ODT) 4 mg disintegrating tablet Take 1 tablet by mouth every 6 hours as needed for nausea/vomiting for up to 7 days. 20 tablet 0 06/24/2022 07/01/2022 Active Comment on above: Take 1 tablet by bob th every 6 hours as needed for nausea/vomiting for up to 7 days. pantoprazole 40 mg delayed release oral tablet (20 sources) Proton Pump Inhibitor Start: 09-29-19 25 take 1 tablet by mouth once daily pantoprazole DR (PROTONIX) 40 mg tablet Take 1 tablet by mouth once daily. 90 tablet 1 09/29/2024 Active Start: 05-12-2024 End: 09-26-2024 take 1 tablet by mouth once daily pantoprazole DR (PROTONIX) 40 mg tablet Take 1 tablet by mouth once daily. 90 tablet 1 05/12/2024 09/26/2024 Discontinued Start: 12-22-2020 End: 05-10-2024 take 1 tablet by mouth once daily pantoprazole DR (PROTONIX) 40 mg tablet Take 1 tablet by mouth once daily. 90 tablet 3 01/16/2023 11/26/2023 Discontinued Comment on above: Take 1 tablet by bob th once daily. predniSONE 20 mg oral tablet (1 source) Start: 2 End: 2 take 1 tablet by mouth once daily predniSONE (DELTASONE) 20 mg tablet Indications: Otalgia of both ears , Dysfunction of Eustachian tube, unspecified laterality Take 1 tablet by mouth once daily for 5 days. 5 tablet 0 01/05/2022 01/10/2022 Active Comment on above: Take 1 tablet by [facility] once daily for 5 days. tamsulosin hydrochloride 0.4 mg oral capsule (20 sources) alpha-Adrenergic Berta Start: End: take 1 capsule by mouth once daily at bedtime tamsulosin (FLOMAX) 0.4 mg Indications: History of kidney stones Take 1 capsule by mouth daily at bedtime. 90 capsule 1 11/26/2023 Active Comment on above: Take 1 capsule by [facility] daily at bedtime for 7 days. Take 1 capsule by [facility] daily at bedtime. Completed/Discontinued Medications Medication Drug Class(es) Dates Sig (Normalized) Sig (Original) [id number] 200 actuat albuterol 0.09 mg/actuat metered dose inhaler (20 sources) beta2-Adrenergic Agonist Start: 01-20-2022 End: 01-20-2022 take 2 puff(s) by inhalation every six hours as needed for wheezing albuterol HFA (PROVENTIL HFA, VENTOLIN HFA) 90 mcg/actuation inhaler Inhale 2 Puffs as instructed every 6 hours as needed for wheezing/shortness of breath. 1 Inhaler 1 01/20/2022 01/20/2022 Discontinued Comment on above: Inhale 2 Puffs as in structed every 6 hours as needed for wheezing/shortness of breath. docusate sodium 100 mg oral capsule (20 sources) Start: 06-30-2018 End: 08-03-2023 take 1 capsule by mouth twice daily docusate sodium (COLACE) 100 mg capsule Indications: Constipation, unspecified constipation type Take 1 capsule by mouth twice daily. 50 capsule 1 06/30/2018 08/03/2023 Discontinued Comment on above: Take 1 capsule by [facility] twice daily. fluticasone propionate 0.05 mg/actuat metered dose nasal spray (20 sources) Corticosteroid Start: 12-26-2021 End: 07-25-2023 take 2 spray(s) by mouth once daily fluticasone (FLONASE) 50 mcg/actuation nasal spray Use 2 Sprays in each nostril once daily. Rinse mouth after use. 1 Each 3 12/26/2021 07/25/2023 Discontinued (Discontinued by Patient) Comment on above: Use 2 Sprays in each nostril once daily. Rinse mouth after use. Inhalational Spacing Device (3 sources) Start: 01-20-2022 End: 01-20-2022 Inhalational Spacing Device 1 Device one time only for 1 dose. 1 Each 01/20/2022 01/20/2022 Discontinued Start: 01-20-2022 End: 01-20-2022 Inhalational Spacing Device 1 Device one time only for 1 dose. 1 Each 0 01/20/2022 01/20/2022 Discontinued Start: 01-20-2022 End: 01-20-2022 Inhalational Spacing Device 1 Device one time only for 1 dose. 1 Each 0 01/20/2022 01/20/2022 Active Comment on above: 1 Device one time on ly for 1 dose. lactulose 667 mg/ml oral solution (20 sources) Osmotic Laxative Start: 01-01-2022 End: 03-19-2024 take 30 mL by mouth twice daily lactulose (ENULOSE) 10 gram/15 mL solution Take 30 mL by mouth twice daily. 237 mL 1 01/01/2022 03/19/2024 Discontinued (Discontinued by Patient) Start: 12-22-2020 End: 12-30-2021 take 30 mL by mouth twice daily lactulose (ENULOSE) 10 gram/15 mL solution Take 30 mL by mouth twice daily. 1 Bottle 1 12/22/2020 12/30/2021 Discontinued Comment on above: Take 30 mL by mouth twice daily. montelukast 10 mg oral tablet (20 sources) Leukotriene Receptor Antagonist Start: 01-21-20 End: 01-21-20 take 1 tablet by mouth once daily at bedtime montelukast (SINGULAIR) 10 mg tablet Indications: Cough Take 1 tablet by mouth daily at bedtime. 30 tablet 5 01/20/2022 01/20/2022 Discontinued Comment on above: Take 1 tablet by bob th daily at bedtime. oxyCODONE (11 sources) Opioid Agonist oxycodone HCl (OXYCODONE ORAL) Take by mouth. 0 Active Comment on above: Take by mouth. 1000 ml sodium chloride 9 mg/ml injection (1 source) Start: 09-17-19 End: 09-17-19 0.9 % sodium chloride (NACL 0.9%) infusion Indications: Gross hematuria Administer at rate defined per CT contrast administration specifications. To be provided with radiology test. 150 mL 0 09/17/2023 09/17/2023 Comment on above: Administer at rate d efined per CT contrast administration specifications. To be provided with radiology test. Problems Active Problems Problem Classification Problem Date Documented Da te Episodic/Chronic Cancer of colon (20 sources) Malignant tumor of sigmoid colon; Translations: [Malignant neoplasm of sigmoid colon] Onset: 07-13-2017 08-06-2017 Chronic Cancer of rectum and anus (20 sources) Malignant tumor of rectum; Translations: [Malignant neoplasm of rectum] Onset: 08-02-2017 08-06-2017 Chronic Coronary atherosclerosis and other heart disease (20 sources) Coronary atherosclerosis; Translations: [Atherosclerotic heart disease of [place] coronary artery without angina pectoris] Onset: 06-02-2020 06-02-2020 Chronic Diabetes mellitus without complication (20 sources) Type 2 diabetes mellitus without complication; Translations: [Type 2 diabetes mellitus without complications] Onset: 01-20-2014 Resolved: 11-22-2018 08-06-2017 Chronic Disorders of lipid metabolism (20 sources) Mixed hyperlipidemia; Translations: [Mixed hyperlipidemia] Onset: 08-08-2021 08-08-2021 Chronic Esophageal disorders (20 sources) Erosive esophagitis; Translations: [Ulcer of esophagus without bleeding] Onset: 12-12-2013 Resolved: 06-02-2020 07-28-2014 Chronic Essential hypertension (1 source) Essential hypertension; Translations: [Essential (primary) hypertension] 05-04-2023 Chronic Glaucoma (20 sources) Primary open angle glaucoma; Translations: [Primary open-angle glaucoma, unspecified eye, stage unspecified] Onset: 02-15-2016 08-08-2021 Chronic Nutritional deficiencies (20 sources) Vitamin D deficiency; Translations: [Vitamin D deficiency, unspecified] Onset: 11-06-2017 Resolved: 06-02-2020 02-18-2018 Chronic Nutritional deficiencies (1 source) Cobalamin deficiency; Translations: [Deficiency of other specified B group vitamins] 09-08-2024 Episodic Open wounds of extremities (1 source) Laceration without foreign body of left hand, initial encounter; Translations: [Laceration without foreign body of left hand, initial encounter] Onset: 01-11-2024 Episodic Other aftercare (1 source) Patient encounter status; Translations: [Other exterminator (current) drug therapy] 02-26-2024 Episodic Other connective tissue disease (20 sources) Fibromyalgia; Translations: [Fibromyalgia] 10-26-2017 Episodic Other connective tissue disease (1 source) Pain in both feet; Translations: [Pain in right foot] 05-28-2023 Episodic Other connective tissue disease (1 source) Pain of left calf; Translations: [Pain in left lower leg] 03-19-2024 Episodic Other ear and sense organ disorders (1 source) Bilateral earache; Translations: [Otalgia, bilateral] Episodic Other liver diseases (20 sources) Steatosis of liver; Translations: [Fatty (change of) liver, not elsewhere classified] Onset: 02-08-2021 02-08-2021 Chronic Other nutritional; endocrine; and metabolic disorders (20 sources) Body mass index 30+ - obesity; Translations: [Body mass index (BMI) 39.0-39.9, adult] Onset: 08-06-2017 08-06-2017 Chronic Other nutritional; endocrine; and metabolic disorders (20 sources) Morbid obesity; Translations: [Morbid (severe) obesity due to excess calories] Onset: 02-08-2021 02-08-2021 Chronic Other nutritional; endocrine; and metabolic disorders (1 source) Morbid (severe) obesity due to excess calories; Translations: [Morbid obesity (HCC)] Onset: 02-08-2021 Chronic Other skin disorders (1 source) Seborrheic keratosis; Translations: [Other seborrheic keratosis] 03-10-2024 Episodic Otitis media and related conditions (1 source) Dysfunction of eustachian tube; Translations: [Other specified disorders of Eustachian tube, unspecified ear] Episodic Residual codes; unclassified (1 source) Edema of left lower limb; Translations: [Localized edema] 03-19-2024 Episodic Spondylosis; intervertebral disc disorders; other back problems (2 sources) Chronic back pain ; Translations: [Dorsalgia, unspecified] Episodic Thyroid disorders (4 sources) Hypothyroidism; Translations: [Hypothyroidism, unspecified] Chronic Past or Other Problems Problem Classification Problem Date Documented Da te Episodic/Chronic Abdominal hernia (20 sources) Hernia of anterior abdominal wall; Translations: [Ventral hernia without obstruction or gangrene] Onset: 04-17-2018 Resolved: 06-02-2020 06-02-2020 Episodic Calculus of urinary tract (12 sources) Calculus of lower urinary tract; Translations: [Other lower urinary tract calculus] Onset: 06-24-2022 Episodic Cancer of rectum and anus (15 sources) History of malignant neoplasm of rectum; Translations: [Personal history of other malignant neoplasm of rectum, rectosigmoid junction, and anus] Onset: 11-05-2017 08-31-2023 Episodic Chronic obstructive pulmonary disease and bronchiectasis (11 sources) Bronchitis; Translations: [Bronchitis, not specified as acute or chronic] Onset: 09-17-2009 Resolved: 02-09-2014 Episodic Fluid and electrolyte disorders (10 sources) Hypokalemia; Translations: [Hypokalemia] Onset: 08-06-2017 Resolved: 08-06-2017 08-06-2017 Episodic Genitourinary symptoms and ill-defined conditions (6 sources) Zev hematuria; Translations: [Gross hematuria] Onset: 09-28-2023 Episodic Immunizations and screening for infectious disease (3 sources) Vaccination needed; Translations: [Encounter for immunization] Onset: 03-10-2024 06-27-2023 Episodic Other aftercare (1 source) Other prison (current) drug therapy; Translations: [Medication management] Onset: 03-08-2024 Episodic Other and unspecified benign neoplasm (14 sources) History of polyp of colon; Translations: [Personal history of colonic polyps] Onset: 08-31-2023 08-31-2023 Episodic Other circulatory disease (10 sources) Low blood pressure; Translations: [Hypotension, unspecified] Onset: 08-06-2017 Resolved: 08-06-2017 08-06-2017 Episodic Other connective tissue disease (1 source) Pain in left lower leg; Translations: [Pain of left calf] Onset: 03-19-2024 Episodic Other gastrointestinal disorders (20 sources) Ileostomy present; Translations: [Ileostomy status] Onset: 08-06-2017 Resolved: 04-03-2018 04-03-2018 Chronic Other liver diseases (20 sources) Elevated liver enzymes level; Translations: [Abnormal levels of other serum enzymes] Onset: 10-17-2013 05-05-2014 Episodic Other lower respiratory disease (12 sources) Cough; Translations: [Cough] Onset: 09-17-2009 Resolved: 02-09-2014 Episodic Other nervous system disorders (16 sources) Burning feet; Translations: [Other disturbances of skin sensation] Onset: 08-03-2023 05-04-2023 Episodic Other nervous system disorders (10 sources) Postoperative pain ; Translations: [Other acute postprocedural pain] Onset: 08-06-2017 Resolved: 06-02-2020 06-02-2020 Episodic Other non-traumatic joint disorders (20 sources) Pain in unspecified knee; Translations: [Pain in joint, lower leg] Onset: 05-05-2014 05-05-2014 Episodic Other nutritional; endocrine; and metabolic disorders (10 sources) Obese class I; Translations: [Obesity, unspecified] Onset: 07-28-2014 Resolved: 06-02-2020 06-02-2020 Chronic Other screening for suspected conditions (not mental disorders or infectious disease) (10 sources) Other specified abnormal findings of blood chemistry; Translations: [Other abnormal blood chemistry] Onset: 02-09-2014 Resolved: 02-09-2014 02-09-2014 Episodic Other skin disorders (1 source) Other seborrheic keratosis; Translations: [Seborrheic keratosis] Onset: 03-10-2024 Episodic Residual codes; unclassified (10 sources) Family history of cancer of colon; Translations: [Family history of malignant neoplasm of digestive organs] Onset: 05-15-2018 Resolved: 06-02-2020 06-02-2020 Episodic Residual codes; unclassified (1 source) Localized edema; Translations: [Edema of left lower extremity] Onset: 03-19-2024 Episodic Results Test Name Value Interpretation Reference Range Facility CNOVon 09-08-2024 CNOV Office Visit (INTMWS ) WALDO ZEE ([id number]) 1960 M [facility] Date Time Provider Department 09/08/24 8:40 AM BETTYE POWELL During your visit today, we recorded the following information about you: Pulse Respiration Blood pressure Weight 66/minute 16/minute 128/82 122.9 kg Bettye Powell MD 09/08/2024 11:04 AM Signed Reason for Visit Patient presents with: Follow Up Waldo Zee is a 63 year old male who presents here today for CPE. 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 Chronic conditions are fairly well-controlled but he does like to eat sweet food and was complaining of neuropathy which slowly got better with him changing the time when he eats his sugary foods. He has been watching his sweets, he loves sweets. Reviewed his lipid labs and all of them are normal. He still has trouble with cholesterols but he does not want to take cholesterol medication. He is exercising by walking, getting around 4/5 thousand steps a day. He has a large garden and he carries water in the garden. Carrying pounds of stuff for it. Diet: he is eating a lot of vegetables, and fruits, chocolate, is his weakness. Drinks around 2 times a week. His weight has remained stable. He has been to see an freight broker recently. He has been to see Michelle schreiber recently. Had a colonoscopy recently, good for 5 years 09/08/2024: We do not have hba1c and other labs today. Bp is good. He does not check sugars on a regular basis. Patient notes that he is not doing near as much he should to be careful with his diet in the holidays. Takes all his chronic medication No problem-specific Assessment AND Plan notes found for this encounter. PAST MEDICAL HISTORY Diagnosis Date Coronary artery disease Diabetes (HCC) Esophageal reflux Fibromyalgia Glaucoma Hypertension Kidney stone Kidney stones 2022 Non-STEMI (non-ST elevated myocardial infarction) (HCC) 10/24/2018 Other and unspecified hyperlipidemia Rectal cancer (HCC) Diagnostic laparoscopy, open low anterior rectal and sigmoid resection, mobilization of splenic flexure, flexible sigmoidoscopy, diverting loop ileostomy 07/2017 Thyroid disease PAST SURGICAL HISTORY Procedure Laterality Date ABDOMINAL SURGERY HX CARDIAC CATH 10/24/2018 [facility] with stent placement COLON SURGERY HX COLONOSCOPY FLX DX W/COLLJ SPEC WHEN PFRMD 06/13/2017 Colonoscopy COLONOSCOPY FLX DX W/COLLJ SPEC WHEN PFRMD 05/29/2018 Colonoscopy COLONOSCOPY FLX DX W/COLLJ SPEC WHEN PFRMD 06/26/2019 Colonoscopy COLONOSCOPY FLX DX W/COLLJ SPEC WHEN PFRMD 07/02/2020 Colonoscopy ESOPHAGOGASTRODUODENOSCOPY TRANSORAL DIAGNOSTIC EGD HERNIA REPAIR HX 2018 incisional LITHOLINK CKD PROGRAM 07/11/2022 PAST SURGICAL HISTORY OF 07/2017 Diagnostic laparoscopy, open low anterior rectal and sigmoid resection, mobilization of splenic flexure, flexible sigmoidoscopy, diverting loop ileostomy PAST SURGICAL HISTORY OF 11/05/2017 ileostomy reversal PSA (EXTERNAL) 06/14/2015 normal (0.76) [facility] REMOVAL OF KIDNEY STONE 2022 FAMILY HISTORY Adopted: Yes Problem Relation Age of Onset Hypertension Mother other (auto immune hepatitis) Mother other (unknown) Father Diabetes Maternal Grandmother None Maternal Grandfather other (unknown) Paternal Grandmother other (unknown) Paternal Grandfather None Daughter other (Other) Sister blood clot 1/2 sister other (hormone issues) Daughter Social History Tobacco Use Smoking status: Former Types: Cigars Passive exposure: Never Smokeless tobacco: Never Tobacco comments: Pt will have an occassional cigar.- done with cigars Vaping Use Vaping status: Never Used Substance Use Topics Alcohol use: Not Currently Comment: bourbon every two to three weeks Drug use: No Past medical history, appointments, medications, allergies reviewed. Pertinent Lab/Diagnostic Studies are reviewed and discussed today Current Outpatient Medications: levothyroxine (LEVOXYL) 50 mcg tablet metFORMIN (GLUCOPHAGE) 500 mg tablet metoprolol tartrate, short acting, (LOPRESSOR) 25 mg tablet ergocalciferol 50,000 unit capsule (VITAMIN D2, DRISDOL) pantoprazole DR (PROTONIX) 40 mg tablet losartan (COZAAR) 25 mg tablet nitroglycerin sublingual (NITROQUICK) 0.4 mg SL tablet COMPOUNDED PRESCRIPTION aspirin 81 mg chewable tablet multivitamin tablet cetirizine (ZYRTEC) 10 mg tablet acetami (more content not included)... Normal [facility] CNPNon 03-20-2024 ALANISN Telephone (INTMWS) WALDO ZEE ([id number]) 1960 [facility] Date Time Provider Department 03/20/24 LIZETH BRADFORD INTMWS During your visit today, we recorded the following information about you: Beatrice Grady LPN 03/20/2024 8:07 AM Signed ----- Message from Lizeth Bradford APRN.SENIOR CONTROL SYSTEMS ENGINEER sent at 03/19/2024 5:08 PM EDT ----- Please let the patient know as of right now the preliminary result of the ultrasound is negative for blood clots. I will contact him on My Chart once the final has resulted Lizeth Bradford APRN.Beatrice Rocha LPN 03/20/2024 8:11 AM Signed Phoned patient and went over results, notes from Lizeth Bradford TIRE REPAIR MECHANIC with understanding. Allergies As of Date: 03/20/2024 Noted Allergy Reaction ATORVASTATIN 03/15/2023 8 - GI Upset Comments: Cause acid reflux DUST MITES 11/11/2009 ROSUVASTATIN 03/15/2023 8 - GI Upset Comments: Cause acid reflux Date Reviewed: 03/19/2024 Reviewed by: Lizeth Bradford APRN.ALANIS - Fully Assessed Reason for Visit: Results [95] Prescriptions as of 03/20/2024 - levothyroxine (LEVOXYL) 50 mcg tablet Take 1 tablet by mouth once daily. Take on empty stomach. For Thyroid - metFORMIN (GLUCOPHAGE) 500 mg tablet Take 2 pills with breakfast and 1 pill with dinner - tamsulosin (FLOMAX) 0.4 mg Take 1 capsule by mouth daily at bedtime. - metoprolol tartrate, short acting, (LOPRESSOR) 25 mg tablet Takes half of pill twice daily - losartan (COZAAR) 25 mg tablet Take 1 tablet by mouth once daily. - ergocalciferol 50,000 unit capsule (VITAMIN D2, DRISDOL) Take 1 capsule by mouth one time a week. - pantoprazole DR (PROTONIX) 40 mg tablet Take 1 tablet by mouth once daily. - nitroglycerin sublingual (NITROQUICK) 0.4 mg SL tablet Dissolve 1 tablet under the tongue every 5 minutes as needed for Chest Pain. - COMPOUNDED PRESCRIPTION Diabetic arch supports Dx: E11.9 M72.2 - aspirin 81 mg chewable tablet Take 1 tablet by mouth once daily. - multivitamin tablet Take 1 tablet by mouth once daily. - cetirizine (ZYRTEC) 10 mg tablet Take 10 mg by mouth once daily as needed for cold/allergy symptoms. - acetaminophen (TYLENOL) 500 mg tablet Take 500 mg by mouth every 8 hours as needed. - latanoprost (XALATAN) 0.005 % ophthalmic solution Use 1 Drop in both eyes daily at bedtime. Problem List As Of Date 03/20/2024 Noted Resolved Mixed hyperlipidemia [E78.2] Esophageal reflux [K21.9] 06/02/2020 Tracheobronchitis [J40] 09/17/2009 02/09/2014 Cough [R05.9] 09/17/2009 02/09/2014 Elevated liver enzymes [R74.8] 10/17/2013 Erosive esophagitis [K22.10] 12/12/2013 Diabetes (HCC) [E11.9] 01/20/2014 11/22/2018 Elevated LFTs [R79.89] 02/09/2014 02/09/2014 Knee pain [M25.569] 05/05/2014 Routine health maintenance [Z00.00] 07/07/2014 Obesity (BMI 30.0-34.9) [E66.9] 07/28/2014 06/02/2020 Primary open angle glaucoma [H40.1190] 02/15/2016 Annual physical exam [Z00.00] 05/29/2017 06/02/2020 Cancer of sigmoid colon (HCC) [C18.7] 07/13/2017 Type 2 diabetes mellitus without complication, *07/13/2017 Rectal cancer (HCC) [C20] 08/02/2017 BMI 39.0-39.9,adult [Z68.39] 08/06/2017 Hypotension [I95.9] 08/06/2017 08/06/[address] (HCC) [Z93.2] 08/06/2017 04/03/2018 Hypokalemia [E87.6] 08/06/2017 08/06/2017 Post-op pain [G89.18] 08/06/2017 06/02/2020 Fibromyalgia [M79.7] History of rectal cancer [Z85.048] 11/05/2017 Attention to ileostomy (HCC) [Z43.2] 11/06/2017 04/03/2018 Malnutrition of mild degree (HCC) [E44.1] 11/06/2017 06/02/2020 Vitamin D deficiency [E55.9] 02/18/2018 Ventral hernia without obstruction or gangrene *04/17/2018 06/02/2020 Family history of colon cancer [Z80.0] 05/15/2018 06/02/2020 Incisional hernia [K43.2] 06/26/2018 06/02/2020 Coronary artery disease involving [place] marcano*06/02/2020 Fatty liver [K76.0] 02/08/2021 Morbid obesity (HCC) [E66.01] 02/08/2021 Burning sensation of feet [R20.8] 08/03/2023 History of colonic polyps [Z86.010] 08/31/2023 Encounter Status:Closed by BEATRICE GRADY on 03/20/24 [facility] Darlene 03-19-2024 CNOV Office Visit (INTMWS ) WALDO ZEE ([id number]) 1960 [facility] Date Time Provider Department 03/19/24 10:00 AM LIZETH BRADFORD INTMWS During your visit today, we recorded the following information about you: Temperature Pulse Respiration Blood pressure 97 degrees 67/minute 16/minute 130/84 Weight 113.4 kg Lizeth Bradford, HPLC CHEMIST.SENIOR CONTROL SYSTEMS ENGINEER 03/19/2024 10:39 AM Signed CC: Patient presents with: left lower leg swelling/pain x 24 hours HPI Waldo Zee is a 63 year old male who presents today for above. Edema: unilateral - left lower leg x 1 day Reports: discomfort described as a muscle ache, multiple varicose veins of the left leg Denies: chest pain, shortness of breath, post nocturnal dyspnea, hemoptysis, orthopnea, weight gain, other areas of swelling/pain PMH: History of hypercoagulability in family member, CAD, colon/rectal cancer (7 years ago) Recent falls/injury: No Recent long plane/car trips: No Water intake: adequate Salt intake: does not monitor Elevating legs: no Prolonged sitting or standing: no Treatments: none Review of Systems Constitutional: Negative for chills, diaphoresis, fatigue and fever. Respiratory: Negative for cough and wheezing. Skin: Negative for color change. PAST MEDICAL HISTORY No date: Coronary artery disease No date: Diabetes (HCC) No date: Esophageal reflux No date: Fibromyalgia No date: Glaucoma No date: Hypertension No date: Kidney stone 2022: Kidney stones 10/24/2018: Non-STEMI (non-ST elevated myocardial infarction) (HCC) No date: Other and unspecified hyperlipidemia No date: Rectal cancer (HCC) Comment: Diagnostic laparoscopy, open low anterior rectal and sigmoid resection, mobilization of splenic flexure, flexible sigmoidoscopy, diverting loop ileostomy 07/2017 No date: Thyroid disease PAST SURGICAL HISTORY No date: ABDOMINAL SURGERY HX 10/24/2018: CARDIAC CATH Comment: [facility] with stent placement No date: COLON SURGERY HX 06/13/2017: COLONOSCOPY FLX DX W/COLLJ SPEC WHEN PFRMD Comment: Colonoscopy 05/29/2018: COLONOSCOPY FLX DX W/COLLJ SPEC WHEN PFRMD Comment: Colonoscopy 06/26/2019: COLONOSCOPY FLX DX W/COLLJ SPEC WHEN PFRMD Comment: Colonoscopy 07/02/2020: COLONOSCOPY FLX DX W/COLLJ SPEC WHEN PFRMD Comment: Colonoscopy No date: ESOPHAGOGASTRODUODENOSCOPY TRANSORAL DIAGNOSTIC Comment: EGD 2018: HERNIA REPAIR HX Comment: incisional 07/11/2022: [facility] CKD PROGRAM 07/2017: PAST SURGICAL HISTORY OF Comment: Diagnostic laparoscopy, open low anterior rectal and sigmoid resection, mobilization of splenic flexure, flexible sigmoidoscopy, diverting loop ileostomy 11/05/2017: PAST SURGICAL HISTORY OF Comment: ileostomy reversal 06/14/2015: PSA (EXTERNAL) Comment: normal (0.76) [facility] 2022: REMOVAL OF KIDNEY STONE ALLERGIES Atorvastatin, Dust Mites, and Rosuvastatin MEDICATIONS levothyroxine (LEVOXYL) 50 mcg tablet Take 1 tablet by mouth once daily. Take on empty stomach. For Thyroid metFORMIN (GLUCOPHAGE) 500 mg tablet Take 2 pills with breakfast and 1 pill with dinner tamsulosin (FLOMAX) 0.4 mg Take 1 capsule by mouth daily at bedtime. metoprolol tartrate, short acting, (LOPRESSOR) 25 mg tablet Takes half of pill twice daily losartan (COZAAR) 25 mg tablet Take 1 tablet by mouth once daily. (Patient taking differently: Take 50 mg by mouth once daily. [facility]) ergocalciferol 50,000 unit capsule (VITAMIN D2, DRISDOL) Take 1 capsule by mouth one time a week. pantoprazole DR (PROTONIX) 40 mg tablet Take 1 tablet by mouth once daily. lactulose (ENULOSE) 10 gram/15 mL solution Take 30 mL by mouth twice daily. nitroglycerin sublingual (NITROQUICK) 0.4 mg SL tablet Dissolve 1 tablet under the tongue every 5 minutes as needed for Chest Pain. COMPOUNDED PRESCRIPTION Diabetic arch supports Dx: E11.9 M72.2 aspirin 81 mg chewable tablet Take 1 tablet by mouth once daily. multivitamin tablet Take 1 tablet by mouth once daily. cetirizine (ZYRTEC) 10 mg tablet Take 10 mg by mouth once daily as needed for cold/allergy symptoms. acetaminophen (TYLENOL) 500 mg tablet Take 500 mg by mouth every 8 hours as needed. latanoprost (XALATAN) 0.005 % ophthalmic solution Use 1 Drop in both eyes daily at bedtime. FAMILY HISTORY Adopted: Yes Problem Relation Age of Onset Hypertension Mother other (auto immune hepatitis) Mother other (unknown) Father Diabetes Maternal Grandmother None Maternal Grandfather other (unknown) Paternal Grandmother other (unknown) Paternal Grandfather None Daughter other (Other) Sister blood clot 1/2 sister other (hormone issues) Daughter Social History Tobacco Use Smoking status: Former Types: Cigars Passive exposure: Never Smokeless tobacco: Never Tobacco comments: Pt will have an occassional cigar.- done with cigars Vaping Use Vaping Use: (more content not included)... Normal [facility] LEG VEIN DVT UNL VAS LABo n 03-19-2024 LEG VEIN DVT UNL VAS LAB Non-Invasive Vascular Laboratory [facility] Lower Extremity Venous Duplex Unilateral - Left Date of service/time: 03/19/2024 10:54:50 AM Name: WALDO ZEE Date of : 1960 Age: 63 years Gender: M Clinical Indication Lower extremity pain. Left TECHNIQUE -------- A venous duplex ultrasound examination was performed, including grayscale imaging with compression maneuvers and color Doppler and spectral Doppler examination with augmentation maneuvers and response to respiration of the below mentioned veins. FINDINGS -------- RIGHT SIDE Common femoral vein Doppler: normal flow. LEFT SIDE Distal external iliac vein Doppler: normal flow. Compression: normal. Common femoral vein Doppler: normal flow. Compression: normal. Femoral vein Doppler: abnormal flow with reflux. Compression: normal. Popliteal vein Doppler: abnormal flow with reflux. Compression: normal. Posterior tibial veins Compression: normal. Peroneal veins Compression: normal. Great saphenous vein Compression: normal. Small saphenous vein Compression: normal. IMPRESSION RIGHT SIDE - DEEP VEINS Spontaneous and respirophasic flow noted in the common femoral vein. LEFT SIDE - DEEP VEINS Negative for acute deep vein thrombosis. Positive for valvular incompetency in the femoral vein and popliteal vein. LEFT SIDE - SUPERFICIAL VEINS Negative for superficial thrombophlebitis in the great saphenous vein and small saphenous vein. Technologist: Maricel Pantoja RVT, RDND Ordering physician: LIZETH BRADFORD Interpreting physician: Nam Limon MD, RAVEN Final CC [employer] [facility] Image : [id number] oDynamicsSISUID See Link below for Image Normal [facility] Cardiology Visit Reporton Cardiology Visit Report [facility] [address] [place] [address] OFFICE VISIT Date of Service: 03/18/24 MR#: [id number] Acct: [id number] Name: WALDO ZEE Rep #: [id number] : 1960 Provider: JUAN F Llanos Age/Sex: 63/M Location[place] [facility] [place] Status: Signed HPI HPI History of Present Illness Details: Waldo Zee is a 63-year-old gentleman that presents here today for a cardiovascular follow-up. In October 2018 he presented to the emergency room with chest discomfort. Was noted to have a non-ST myocardial infarction. He underwent stenting to his mid circumflex and distal third obtuse marginal. He also has a history of hyperlipidemia, colon cancer and diabetes type 2. From a cardiac standpoint, patient is doing well. He does not have any chest discomfort/heaviness/tightnes s. His exercise tolerance is stable for his age. He does not have any worsening symptoms of shortness of breath. He denies any PND. He does not have any orthopnea. He does not have any symptoms of congestive heart failure. He does sometimes have palpitations. He does not have any lightheadedness or dizziness. He does not have any near-syncope or syncope. He does not have any lower extremity edema. He does not have any symptoms of claudication. Intake Vital Signs 03/15/23 09:30 01/02/24 11:11 03/18/24 10:13 03/18/24 10:18 Height 6 ft 5 ft 11 in 5 ft 11 in 5 ft 11 in Weight: 252 lb BMI 35.1 BP 137/82 H Blood Pressure Location Lt brachial Position Sitting Respiration 18 Pulse 64 Pulse Source Monitor Pulse Oximetry (%) 99 Intake Visit Reasons: 1 Y FU Recenterer Required: No Is patient in pain?: No Allergies atorvastatin Adverse Reaction (Intermediate, Verified 03/18/24 10:13) Acid reflux rosuvastatin (From Crestor) Adverse Reaction (Intermediate, Verified 03/18/24 10:13) Acid reflux, cough Medications ???Medication ???Instructions ???Recorded ???Confirmed ???Type ergocalciferol (vitamin D2) 1,250 50,000 mg PO WE vitamin 10/24/18 03/18/24 History mcg (50,000 unit) capsule latanoprost 0.005 % eye drops 0.005 drp EACH EYE QHS glaucoma 10/24/18 03/18/24 History multivitamin 1 ea PO DAILY vitamin 10/24/18 03/18/24 History aspirin 81 mg tablet,delayed 81 mg PO DAILY@0800 10/25/18 03/18/24 Rx release nitroglycerin 0.4 mg sublingual 0.4 mg sublingual Q5-15M PRN chest 10/31/18 03/18/24 Rx tablet pain #25 tabs pantoprazole 40 mg tablet,delayed 40 mg PO DAILY 12/09/19 03/18/24 History release levothyroxine 50 mcg tablet 50 mcg PO DAILY 02/22/21 03/18/24 History metoprolol tartrate 25 mg tablet 12.5 mg (1/2 x 25 mg) PO BID #90 03/12/23 03/18/24 Rx tabs losartan 50 mg tablet 50 mg PO DAILY #90 tabs 03/18/24 03/18/24 Rx metformin 500 mg tablet 750 mg PO BID diabetes 03/18/24 03/18/24 History [facility] Medical History (Updated 03/18/24 @ 13:51 by Sherine ROGEL, PA) Essential hypertension Hypothyroidism History of colon cancer History of non-ST elevation myocardial infarction (NSTEMI) (10/24/18) Type 2 diabetes mellitus Obesity RLS (restless legs syndrome) GERD (gastroesophageal reflux disease) Atherosclerotic heart disease of [place] coronary artery without angina pectoris ACS (acute coronary syndrome) (10/24/18) Surgical History History of partial colectomy History of ileostomy History of coronary artery stent placement (10/24/18) Family History Grandmother CAD (coronary artery disease) Sister Pulmonary embolism Social History Smoking Status: Former smoker ROS Const Const: Negative for fatigue, weakness, headache(s), frequent falls, difficulty sleeping or excessive sweating Eyes Eyes: Negative for loss of peripheral vision, transient loss of vision, blurry vision, double vision or tunnel vision ENT ENT: Negative for headache(s), dizziness, Nosebleed/epistaxis or balance problems Cardio Chest Pain: No Palpitations: Yes Edema: None Muscle aches with walking: None Resp Respiratory: Negative for SOB with activity, SOB at rest, SOB orthopnea SOB lying down, Cough or paroxysmal nocturnal dyspnea GI GI: Negative nausea, vomiting or heartburn : Negative for hematuria Musc Musc: Negative for muscle aches/ myalgia, muscle weakness, joint pain or balance problems Skin Skin: Negative non-healing lesions, rash or unusual bruising Neuro Neuro: Negative for dizziness, lightheadedness, near syncope, syncope, orthostatic symptoms, frequent falls, headache(s), weakness, confusion, memory loss, blurry vision, double vision, vertigo or lack of coordination [place] (more content not included)... Normal [facility] CNOVon 03-10-2024 CNOV Office Visit (INTMWS ) WALDO ZEE ([id number]) 1960 [facility] Date Time Provider Department 03/10/24 9:20 AM BETTYE POWELL INTMWS During your visit today, we recorded the following information about you: Pulse Blood pressure Weight Height 65/minute 118/80 113.9 kg 1.803 m Bettye Powell MD 03/10/2024 11:34 AM Signed Reason for Visit Patient presents with: 6 month follow up Waldo Zee is a 63 year old male who presents here today for CPE. 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 Chronic conditions are fairly well-controlled but he does like to eat sweet food and was complaining of neuropathy which slowly got better with him changing the time when he eats his sugary foods. He has been watching his sweets, he loves sweets. Reviewed his lipid labs and all of them are normal. He still has trouble with cholesterols but he does not want to take cholesterol medication. He is exercising by walking, getting around 4/5 thousand steps a day. He has a large garden and he carries water in the garden. Carrying pounds of stuff for it. Diet: he is eating a lot of vegetables, and fruits, chocolate, is his weakness. Drinks around 2 times a week. His weight has remained stable. He has been to see an freight broker recently. He has been to see Michelle schreiber recently. Had a colonoscopy recently, good for 5 years No problem-specific Assessment AND Plan notes found for this encounter. PAST MEDICAL HISTORY Diagnosis Date Coronary artery disease Diabetes (HCC) Esophageal reflux Fibromyalgia Glaucoma Hypertension Kidney stone Kidney stones 2022 Non-STEMI (non-ST elevated myocardial infarction) (HCC) 10/24/2018 Other and unspecified hyperlipidemia Rectal cancer (HCC) Diagnostic laparoscopy, open low anterior rectal and sigmoid resection, mobilization of splenic flexure, flexible sigmoidoscopy, diverting loop ileostomy 07/2017 Thyroid disease PAST SURGICAL HISTORY Procedure Laterality Date ABDOMINAL SURGERY HX CARDIAC CATH 10/24/2018 [facility] with stent placement COLON SURGERY HX COLONOSCOPY FLX DX W/COLLJ SPEC WHEN PFRMD 06/13/2017 Colonoscopy COLONOSCOPY FLX DX W/COLLJ SPEC WHEN PFRMD 05/29/2018 Colonoscopy COLONOSCOPY FLX DX W/COLLJ SPEC WHEN PFRMD 06/26/2019 Colonoscopy COLONOSCOPY FLX DX W/COLLJ SPEC WHEN PFRMD 07/02/2020 Colonoscopy ESOPHAGOGASTRODUODENOSCOPY TRANSORAL DIAGNOSTIC EGD HERNIA REPAIR HX 2018 incisional LITHOLINK CKD PROGRAM 07/11/2022 PAST SURGICAL HISTORY OF 07/2017 Diagnostic laparoscopy, open low anterior rectal and sigmoid resection, mobilization of splenic flexure, flexible sigmoidoscopy, diverting loop ileostomy PAST SURGICAL HISTORY OF 11/05/2017 ileostomy reversal PSA (EXTERNAL) 06/14/2015 normal (0.76) [facility] REMOVAL OF KIDNEY STONE 2022 FAMILY HISTORY Adopted: Yes Problem Relation Age of Onset Hypertension Mother other (auto immune hepatitis) Mother other (unknown) Father Diabetes Maternal Grandmother None Maternal Grandfather other (unknown) Paternal Grandmother other (unknown) Paternal Grandfather None Daughter other (Other) Sister blood clot 1/2 sister other (hormone issues) Daughter Social History Tobacco Use Smoking status: Former Types: Cigars Passive exposure: Never Smokeless tobacco: Never Tobacco comments: Pt will have an occassional cigar.- done with cigars Vaping Use Vaping Use: Never used Substance Use Topics Alcohol use: Not Currently Comment: bourbon every two to three weeks Drug use: No Past medical history, appointments, medications, allergies reviewed. Pertinent Lab/Diagnostic Studies are reviewed and discussed today Current Outpatient Medications: levothyroxine (LEVOXYL) 50 mcg tablet metFORMIN (GLUCOPHAGE) 500 mg tablet tamsulosin (FLOMAX) 0.4 mg metoprolol tartrate, short acting, (LOPRESSOR) 25 mg tablet losartan (COZAAR) 25 mg tablet ergocalciferol 50,000 unit capsule (VITAMIN D2, DRISDOL) pantoprazole DR (PROTONIX) 40 mg tablet lactulose (ENULOSE) 10 gram/15 mL solution nitroglycerin sublingual (NITROQUICK) 0.4 mg SL tablet COMPOUNDED PRESCRIPTION aspirin 81 mg chewable tablet multivitamin tablet cetirizine (ZYRTEC) 10 mg tablet acetaminophen (TYLENOL) 500 mg tablet latanoprost (XALATAN) 0.005 % ophthalmic solution Review of Systems CONSTITUTIONAL: No fevers, chills, nightsweats, unintended weight loss HEENT: (more content not included)... Normal [facility] 25([facility] 25-hydroxyvitamin D3 [Mass/Vol] 77.0 ng/mL Normal 31.0-80.0 [facility] Comment on above: Order Comment: Speci men Type: BLOOD SPECIMENOrdering Facility: [facility] Address: [address] [place] [address] Result Comment: Clas sification of 25 [place] Vitamin D status: Deficiency/Insufficiency: < or = 30 ng/ml. Sufficiency/Optimal Levels: 31-80 ng/mL Toxicity: > 100 ng/mL. Test performed by chemiluminescent immunoassay. Performed By: #### 1 989-3 ####[facility] LABIA [id number] [place] [address] [place] CBC panel Auto (Bld)on 03-08 Erythrocyte distribution width (RBC) [Ratio] 14.4 % Normal 11.5-15.0 [facility] Comment on above: Order Comment: Speci men Type: BLOOD SPECIMENOrdering Facility: [facility] Address: [address] [place] [address] Performed By: #### 5 8410-2 ####[facility] [id number] [address] [place] Hematocrit (Bld) [Volume fraction] 41.9 % Normal 39.0-51.0 [facility] Comment on above: Order Comment: Speci men Type: BLOOD SPECIMENOrdering Facility: [facility] Address: [address] [place] [address] Performed By: #### 5 8410-2 ####[facility] LABIA [id number] [address] [place] Hemoglobin (Bld) [Mass/Vol] 13.2 g/dL Normal 13.0-17.0 [facility] Comment on above: Order Comment: Speci men Type: BLOOD SPECIMENOrdering Facility: [facility] Address: [address] [place] [address] Performed By: #### 5 8410-2 ####[facility]IA [id number] [place] [address] [place] MCH (RBC) [Entitic mass] 26.4 pg Normal 26.0-34.0 [facility] Comment on above: Order Comment: Speci men Type: BLOOD SPECIMENOrdering Facility: [facility] Address: [address] [place] [address] Performed By: #### 5 8410-2 ####[facility] LABCLIA [id number] [place] [address] [place] MCHC (RBC) [Mass/Vol] 31.5 g/dL Normal 30.5-36.0 [facility] Comment on above: Order Comment: Speci men Type: BLOOD SPECIMENOrdering Facility: [facility] Address: [address] [place] [address] Performed By: #### 5 8410-2 ####[facility] LABIA [id number] [place] [address] [place] MCV (RBC) [Entitic vol] 83.8 fL Normal 80.0-100.0 [facility] Comment on above: Order Comment: Speci men Type: BLOOD SPECIMENOrdering Facility: [facility] Address: [address] [place] [address] Performed By: #### 5 8410-2 ####[facility] LABCLIA [id number] [place] [address] [place] Nucleated RBC (Bld) [#/Vol] 10*3/uL Normal <0.01 [facility] Comment on above: Order Comment: Speci men Type: BLOOD SPECIMENOrdering Facility: [facility] Address: [address] [place] [address] Performed By: #### 5 8410-2 ####[facility] LABCLIA [id number] [place] [address] [place] Platelet mean volume (Bld) [Entitic vol] 10.4 fL Normal 9.0-12.7 [facility] Comment on above: Order Comment: Speci men Type: BLOOD SPECIMENOrdering Facility: [facility] Address: [address] [place] [address] Performed By: #### 5 8410-2 ####[facility] LABCLIA [id number] [place] [address] [place] Platelets (Bld) [#/Vol] 275 10*3/uL Normal 150-400 [facility] Comment on above: Order Comment: Speci men Type: BLOOD SPECIMENOrdering Facility: [facility] Address: [address] [place] [address] Performed By: #### 5 8410-2 ####[facility] LABCLIA [id number] [place] [address] [place] RBC (Bld) [#/Vol] 5.00 10*6/uL Normal 4.20-6.00 [facility] Comment on above: Order Comment: Speci men Type: BLOOD SPECIMENOrdering Facility: [facility] Address: [address] [place] [address] Performed By: #### 5 8410-2 ####[facility] [id number] [place] [address] [place] WBC (Bld) [#/Vol] 9.47 10*3/uL Normal 3.70-11.00 [facility] Comment on above: Order Comment: Speci men Type: BLOOD SPECIMENOrdering Facility: [facility] Address: [address] [place] [address] Performed By: #### 5 8410-2 ####[facility]IA [id number] [place] [address] [place] Comprehensive metabolic 2000 panelon 03-08-2024 Albumin [Mass/Vol] 4.2 g/dL Normal 3.9-4.9 [facility] Comment on above: Order Comment: Speci men Type: BLOOD SPECIMENOrdering Facility: [facility] Address: [address] [place] [address] Performed By: #### 2 4323-8, 80543-4, 3016-3 ####[facility] LABCLIA [id number] [place] [address] [place] ALP [Catalytic activity/Vol] 71 U/L Normal 38-113 [facility] Comment on above: Order Comment: Speci men Type: BLOOD SPECIMENOrdering Facility: [facility] Address: [address] [place] [address] Performed By: #### 2 4323-8, 72986-5, 3016-3 ####[facility] LABCLIA [id number] [place] [address] [place] ALT [Catalytic activity/Vol] 18 U/L Normal 10-54 [facility] Comment on above: Order Comment: Speci men Type: BLOOD SPECIMENOrdering Facility: [facility] Address: [address] [place] [address] Performed By: #### 2 4323-8, 75357-6, 6-3 ####[facility] LABCLIA [id number] [place] [address] [place] Anion gap [Moles/Vol] 11 mmol/L Normal 8-15 [facility] Comment on above: Order Comment: Speci men Type: BLOOD SPECIMENOrdering Facility: [facility] Address: [address] [place] [address] Performed By: #### 2 4323-8, 58809-8, 6-3 ####[facility] LABCLIA [id number] [place] [address] [place] AST [Catalytic activity/Vol] 24 U/L Normal 14-40 [facility] Comment on above: Order Comment: Speci men Type: BLOOD SPECIMENOrdering Facility: [facility] Address: [address] [place] [address] Performed By: #### 2 4323-8, 23173-6, 3016-3 ####[facility] LABCLIA [id number] [place] [id number] [place] Bilirubin [Mass/Vol] 0.4 mg/dL Normal 0.2-1.3 [facility] Comment on above: Order Comment: Speci men Type: BLOOD SPECIMENOrdering Facility: [facility] Address: [address] [place] [address] Performed By: #### 2 4323-8, 41532-7, 3015-3 ####[facility] LABCLIA [id number] [place] [id number] [place] Calcium [Mass/Vol] 9.5 mg/dL Normal 8.5-10.2 [facility] Comment on above: Order Comment: Speci men Type: BLOOD SPECIMENOrdering Facility: [facility] Address: [address] [place] [address] Performed By: #### 2 4323-8, 74761-2, 3 ####[facility] LABCLIA [id number] [place] [address] [place] Chloride [Moles/Vol] 102 mmol/L Normal 98-107 [facility] Comment on above: Order Comment: Speci men Type: BLOOD SPECIMENOrdering Facility: [facility] Address: [address] [place] [address] Performed By: #### 2 4323-8, 97283-9, 3 ####[facility] LABCLIA [id number] [place] [id number] [place] CO2 [Moles/Vol] 26 mmol/L Normal 22-30 [facility] Comment on above: Order Comment: Speci men Type: BLOOD SPECIMENOrdering Facility: [facility] Address: [address] [place], [place] [address] Performed By: #### 2 4323-8, 65975-5, 3015-3 ####[facility] LABCLIA [id number] [place] [id number] [place] Creatinine [Mass/Vol] 0.91 mg/dL Normal 0.73-1.22 [facility] Comment on above: Order Comment: Speci men Type: BLOOD SPECIMENOrdering Facility: [facility] Address: [address] [place] [id number] Performed By: #### 2 4323-8, 97812-1, 3016-3 ####[facility] LABCLIA [id number] [place] [address] [place] Creatinine and Glomerular filtration rate.predicted panel (S/P/Bld) 96 mL/min/1.73m??? Normal >=60 [facility] Comment on above: Order Comment: Fidel landaverde Type: BLOOD SPECIMENOrdering Facility: [facility] Address: [address] [place] [address] Result Comment: Jossie mated Glomerular Filtration Rate (eGFR) is calculated using the 2020 CKD-EPI creatinine equation. This equation utilizes serum creatinine, sex, and age as parameters. The creatinine assay has traceable calibration to isotope dilution-mass spectrometry. Refer to KDIGO guidelines for clinical interpretation. In patients with unstable renal function, e.g. those with acute kidney injury, the eGFR may not accurately reflect actual GFR. Performed By: #### 2 4323-8, 89325-4, 3016-3 ####[facility] LABCLIA [id number] [place] [id number] [place] Glucose [Mass/Vol] 108 mg/dL High 74-99 [facility] Comment on above: Order Comment: Fidel landaverde Type: BLOOD SPECIMENOrdering Facility: [facility] Address: [address] [place] [address] Result Comment: The [place] Diabetes Association (ADA) provides guidance for cutoff values for fasting glucose and random glucose. The ADA defines fasting as no caloric intake for at least 8 hours. Fasting plasma glucose results between 100 to 125 mg/dL indicate increased risk for diabetes (prediabetes). Fasting plasma glucose results greater than or equal to 126 mg/dL meet the criteria for diagnosis of diabetes. In the absence of unequivocal hyperglycemia, results should be confirmed by repeat testing. In a patient with classic symptoms of hyperglycemia or hyperglycemic crisis, random plasma glucose results greater than or equal to 200 mg/dL meet the criteria for diagnosis of diabetes. Reference: Standards of Medical Care in Diabetes 2016, [place] Diabetes Association. Diabetes Care. 2016.39(Suppl 1). Performed By: #### 2 4323-8, 15743-1, 6-3 ####[facility] LABCLIA [id number] [address] [address] [place] Potassium [Moles/Vol] 4.4 mmol/L Normal 3.7-5.1 [facility] Comment on above: Order Comment: Speci men Type: BLOOD SPECIMENOrdering Facility: [facility] Address: [address] [place] [address] Performed By: #### 2 4323-8, 76920-7, 3015-3 ####[facility] LABCLIA [id number] [place] [address] [place] Protein [Mass/Vol] 7.0 g/dL Normal 6.3-8.0 [facility] Comment on above: Order Comment: Speci men Type: BLOOD SPECIMENOrdering Facility: [facility] Address: [address] [place] [address] Performed By: #### 2 4323-8, 76461-2, 3015-3 ####[facility] LABIA [id number] [place] [address] [place] Sodium [Moles/Vol] 139 mmol/L Normal 136-144 [facility] Comment on above: Order Comment: Speci men Type: BLOOD SPECIMENOrdering Facility: [facility] Address: [address] [place] [address] Performed By: #### 2 4323-8, 13093-9, 3015-3 ####[facility] LABCLIA [id number] [place] [id number] [place] Urea nitrogen [Mass/Vol] 13 mg/dL Normal 9-24 [facility] Comment on above: Order Comment: Speci men Type: BLOOD SPECIMENOrdering Facility: [facility] Address: [address] [place], [place] [address] Performed By: #### 2 4323-8, 07366-3, 3015-3 ####[facility] LABIA [id number] [address] [place] HbA1c (Bld)on 03-08-2024 Average glucose Estimated from glycated hemoglobin (Bld) [Mass/Vol] 140 mg/dL Normal [facility] Comment on above: Order Comment: Fidel landaverde Type: BLOOD SPECIMENOrdering Facility: [facility] Address: [address] [place] [address] Result Comment: eAG: (Estimated average glucose) is a calculated value from HgbA1c and is accounting representative of the average blood glucose level in the last 2-3 month period. Performed By: #### 5 5454-3 ####[facility]IA [id number] [address] [place] [facility] HbA1c (Bld) [Mass fraction] 6.5 % High 4.3-5.6 [facility] Comment on above: Order Comment: Fidel landaverde Type: BLOOD SPECIMENOrdering Facility: [facility] Address: [address] [place] [address] Result Comment: [place] Diabetes Association guidelines indicate that patients with HgbA1c in the range 5.7-6.4% are at increased risk for development of diabetes, and intervention by lifestyle modification may be beneficial. HgbA1c greater or equal to 6.5% is considered diagnostic of diabetes. Performed By: #### 5 5454-3 ####[facility]IA [id number] [address] [place] Lipid 1996 panelon 4 Cholesterol [Mass/Vol] 205 mg/dL High <200 [facility] Comment on above: Order Comment: Fidel landaverde Type: BLOOD SPECIMENOrdering Facility: [facility] Address: [address] [place] [address] Result Comment: <200 mg/dL, Desirable 200-239 mg/dL, Borderline high >239 mg/dL, High Performed By: #### 2 4323-8, 85525-1, 3015-3 ####[facility] LABCLIA [id number] [address] [place] Cholesterol in HDL [Mass/Vol] 42 mg/dL Normal >39 [facility] Comment on above: Order Comment: Fidel landaverde Type: BLOOD SPECIMENOrdering Facility: [facility] Address: [address] [place] [address] Result Comment: 40-5 9 mg/dL, Acceptable >59 mg/dL, High: Negative risk factor for coronary heart disease <40 mg/dL, Low: Positive risk factor for coronary heart disease Performed By: #### 2 4323-8, 67541-7, 3015-3 ####[facility] LABCLIA [id number] [address] Cholesterol in LDL [Mass/Vol] 131 mg/dL High <100 [facility] Comment on above: Order Comment: Robynedilberto landaverde Type: BLOOD SPECIMENOrdering Facility: [facility] Address: [address] [place] [address] Result Comment: <100 mg/dL, Optimal 100-129 mg/dL, Near optimal/above optimal 130-159 mg/dL, Borderline high 160-189 mg/dL, High >189 mg/dL, Very high Secondary prevention optimal LDL Cholesterol levels are recommended to be < 70 mg/dL Performed By: #### 2 4323-8, 64336-9, 3015-3 ####[facility]IA [id number] [address] [place] Cholesterol in LDL/Cholesterol in HDL [Mass ratio] 3.12 {ratio} High <2.54 [facility] Comment on above: Order Comment: Fidel landaverde Type: BLOOD SPECIMENOrdering Facility: [facility] Address: [address] [place] [address] Result Comment: Tom caballero: 1. National Cholesterol Education Program ATP III Guideline At-A-Glance Quick Desk Reference: National Heart, Lung, and Blood [place]. National Institutes of Health. 2001: NIH Publication No. 01-3305. 2. An International Atherosclerosis Society position paper: global recommendations for the management of dyslipidemia: executive summary, Atherosclerosis. 2014: 232(2):410-413. Performed By: #### 2 4323-8, 02026-6, 6-3 ####[facility] LABCLIA [id number] [address] [address] [place] Cholesterol in VLDL [Mass/Vol] 32 mg/dL High <30 [facility] Comment on above: Order Comment: Speci men Type: BLOOD SPECIMENOrdering Facility: [facility] Address: [address] [place] [address] Performed By: #### 2 4323-8, 90798-9, 3015-3 ####[facility] LABCLIA [id number] [place] [address] [place] Cholesterol non HDL [Mass/Vol] 163 mg/dL High <130 [facility] Comment on above: Order Comment: Robyni men Type: BLOOD SPECIMENOrdering Facility: [facility] Address: [address] [place] [address] Result Comment: <130 mg/dL, Optimal 130-159 mg/dL, Near optimal/above optimal 160-189 mg/dL, Borderline high 190-219 mg/dL, High >219 mg/dL, Very high Secondary prevention optimal non HDL Cholesterol levels are recommended to be <100 mg/dL Performed By: #### 2 4323-8, 05252-2, 3015-3 ####[facility] LABCLIA [id number] [address] [address] [place] Cholesterol.total /Cholesterol in HDL [Mass ratio] 4.88 {ratio} Normal <5.10 [facility] Comment on above: Order Comment: Fidel men Type: BLOOD SPECIMENOrdering Facility: [facility] Address: [address] [place] [address] Performed By: #### 2 4323-8, 22271-5, 3015-3 ####[facility] LABCLIA [id number] [address] [address] [place] FASTING TIME 12 hrs Normal [facility] Comment on above: Order Comment: Speci men Type: BLOOD SPECIMENOrdering Facility: [facility] Address: [address] [place] [address] Performed By: #### 2 4323-8, 42871-0, 3016-3 ####[facility] LABCLIA [id number] [place] [address] [place] Triglyceride [Mass/Vol] 158 mg/dL High <150 [facility] Comment on above: Order Comment: Speci men Type: BLOOD SPECIMENOrdering Facility: [facility] Address: [address] [place] [address] Result Comment: <150 mg/dL, Normal 150-199 mg/dL, Borderline high 200-499 mg/dL, High >499 mg/dL, Very high Performed By: #### 2 4323-8, 71063-2, 6-3 ####[facility] LABCLIA [id number] [place] [address] [place] TSH SerPl-aCncon 03-08-2024 TSH Qn 2.520 m[IU]/L Normal 0.270-4.200 [facility] Comment on above: Order Comment: Speci men Type: BLOOD SPECIMENOrdering Facility: [facility] Address: [address] [place] [address] Performed By: #### 2 4323-8, 35491-2, 6-3 ####[facility] LABCLIA [id number] [place] [id number] [place] Emergency Department Summary on 01-02-2024 Emergency Department Summary [facility] Medical Records Department [address] [place] [address] Emergency Department Summary 01/02/24 MR#: [id number] Acct: [id number] Name: WALDO ZEE Rep #: [id number] : 1960 63 From: Heike Olea DO PCP: Dr. Bettye Powell MD Status:DEP ER Location: ED HPI History of Present Illness Chief Complaint: Laceration Informant: patient Narrative Narrative: Patient is a idjak-vbri-suhgnyuv male presenting with laceration to his left hand. Patient was using his pocket knife to cut open some plastic when he accidentally stabbed the back of his right hand. He initially had a bleeding at the site. Later on he looked down and noticed there is swelling of the hand proximal to the laceration. He pushed on it and then he had blood squirted out. This concerned him and he wanted to come and evaluate. He states he is always been very anxious about bleeding because his sister of a blood clot. He is not on any blood thinners. Denies any associated numbness or tingling. No other complaints or concerns at this time. Patient notes he is diabetic. Tetanus Immunization: <5 years PFSH [facility] Medical History Hypothyroidism History of colon cancer History of non-ST elevation myocardial infarction (NSTEMI) (10/24/18) Type 2 diabetes mellitus Obesity RLS (restless legs syndrome) GERD (gastroesophageal reflux disease) Atherosclerotic heart disease of [place] coronary artery without angina pectoris ACS (acute coronary syndrome) (10/24/18) Home Medications ???Medication ???Instructions ???Recorded ???Last Taken ???Type ergocalciferol (vitamin D2) 1,250 50,000 mg PO WE vitamin 10/24/18 10/17/18 History mcg (50,000 unit) capsule latanoprost 0.005 % eye drops 0.005 drp EACH EYE QHS glaucoma 10/24/18 10/23/18 History multivitamin 1 ea PO DAILY vitamin 10/24/18 10/23/18 History aspirin 81 mg tablet,delayed 81 mg PO DAILY@0800 10/25/18 Unknown Rx release nitroglycerin 0.4 mg sublingual 0.4 mg sublingual Q5-15M PRN chest 10/31/18 Unknown Rx tablet pain #25 tabs metformin 500 mg tablet 500 mg PO BID diabetes 12/09/19 Unknown History pantoprazole 40 mg tablet,delayed 40 mg PO DAILY 12/09/19 Unknown History release levothyroxine 50 mcg tablet 50 mcg PO DAILY 02/22/21 Unknown History losartan 25 mg tablet 25 mg PO DAILY #90 tabs 01/15/23 Unknown Rx metoprolol tartrate 25 mg tablet 12.5 mg (1/2 x 25 mg) PO BID #90 03/12/23 Unknown Rx tabs Allergy/AdvReac Type Severity Reaction Status Date / Time atorvastatin AdvReac Intermediate Acid reflux Verified 03/15/23 13:46 rosuvastatin (From Crestor) AdvReac Intermediate Acid Verified 03/15/23 13:46 reflux, cough Family History Grandmother CAD (coronary artery disease) Sister Pulmonary embolism Surgical History History of partial colectomy History of ileostomy History of coronary artery stent placement (10/24/18) Social History Smoking Status: Former smoker ROS ROS ED Constitutional Constitutional ED: Denies chills or fever(s) Gastrointestinal Gastrointestinal: Denies nausea Musculoskeletal Musculoskeletal: Denies arthralgias or myalgias Integumentary Reports other Details: Laceration to left hand Neurologic Neurologic: Denies paresthesias or weakness Psychiatric Psychiatric: Denies anxiety Hematologic/Lymphatic Hematologic/Lymphatic: Denies easy bleeding or easy bruising EXAM Physical Exam Const Vital Signs: 01/02/24 11:11 01/02/24 11:11 Temperature 95.9 F L Temperature Source Temporal Pulse Rate 79 79 Respiratory Rate 16 16 Blood Pressure 134/90 H 134/90 H Blood Pressure Mean 104 104 Pulse Ox 100 100 Oxygen Delivery Method Room Air Room Air Positive well nourished and well developed General Appearance ED: well developed and NAD HEENT atraumatic Chest Wall inspection of chest normal Resp normal respiratory effort Extremity normal to inspection and full ROM General Extremety ED: Negative for deformity General Extremity: Negative for deformity Neuro oriented x3 Neuro Narrative: Normal range of motion with intrinsic and extrinsic muscles of the hand Motor Exam: strength 5/5 throughout; Negative for muscle tone abnormal Psych mental status grossly normal Skin Skin Narrative: 1.1 cm slightly irregular crescent shaped laceration to the dorsum of the left hand. No active bleeding at this time. MDM MDM MDM Narrative Medical decision making narrative: Patient is very for laceration to the dorsum of the left hand. Appears nontoxic and in no acute distress. No act (more content not included)... Normal [facility] 10-02-2023 RANJIT Telephone (URONISHI) WALDO ZEE ([id number]) 1960 [facility] Date Time Provider Department 10/02/23 EVERETTE CROSS During your visit today, we recorded the following information about you: Everette Cross APRN.ROSALIND THAPA 10/02/2023 9:45 AM Signed Team - Inform patient his CTU results show: 6 mm x 5 mm terminal left ureteral calculus. Small remaining peripelvic bilateral intrarenal calculi. His urine was also very dirty but his UC had now growth. I want him to repeat his urine. He needs to hydrate really well before the test. I talked to Dr. Liriano and he said he would see him if he has not passed the kidney stone yet and consider removing it surgically. If he has not passed please schedule him with Dr. Liriano. Orders Placed This Encounter Urinalysis w Microscopic, reflex Culture Standing Status: Future Standing Expiration Date: 01/01/2024 Everette Cross DNP, ALANIS Department of Urology [facility] Johnny Funes RN 10/02/2023 2:15 PM Signed Called patient and gave patient message below. Patient verbalized understanding. Allergies As of Date: 10/02/2023 Noted Allergy Reaction ATORVASTATIN 03/15/2023 8 - GI Upset Comments: Cause acid reflux DUST MITES 11/11/2009 ROSUVASTATIN 03/15/2023 8 - GI Upset Comments: Cause acid reflux Date Reviewed: 09/28/2023 Reviewed by: Virginie Benavidez, RT(R) - Fully Assessed Reason for Visit: Results [95] Appointment [186] Primary Visit Diagnosis:Kidney stones [N20.0] Other Visit Diagnosis:Abnormal urinalysis [R82.90] Order(s):URINALYSIS WITH MICROSCOPIC, REFLEX CULTURE [SQUACII] Order #: [id number] FUTURE Prescriptions as of 10/02/2023 - tamsulosin (FLOMAX) 0.4 mg Take 1 capsule by mouth daily at bedtime. - metFORMIN (GLUCOPHAGE) 500 mg tablet Take 2 pills with breakfast and 1 pill with dinner - pantoprazole DR (PROTONIX) 40 mg tablet Take 1 tablet by mouth once daily. - metoprolol tartrate, short acting, (LOPRESSOR) 25 mg tablet Takes half of pill twice daily - ergocalciferol 50,000 unit capsule (VITAMIN D2, DRISDOL) Take 1 capsule by mouth one time a week. - levothyroxine (LEVOXYL) 50 mcg tablet Take 1 tablet by mouth once daily. Take on empty stomach. For Thyroid - lactulose (ENULOSE) 10 gram/15 mL solution Take 30 mL by mouth twice daily. - losartan (COZAAR) 25 mg tablet Take 1 tablet by mouth once daily. - nitroglycerin sublingual (NITROQUICK) 0.4 mg SL tablet Dissolve 1 tablet under the tongue every 5 minutes as needed for Chest Pain. - COMPOUNDED PRESCRIPTION Diabetic arch supports Dx: E11.9 M72.2 - aspirin 81 mg chewable tablet Take 1 tablet by mouth once daily. - multivitamin tablet Take 1 tablet by mouth once daily. - cetirizine (ZYRTEC) 10 mg tablet Take 10 mg by mouth once daily as needed for cold/allergy symptoms. - acetaminophen (TYLENOL) 500 mg tablet Take 500 mg by mouth every 8 hours as needed. - latanoprost (XALATAN) 0.005 % ophthalmic solution Use 1 Drop in both eyes daily at bedtime. Problem List As Of Date 10/02/2023 Noted Resolved Mixed hyperlipidemia [E78.2] Esophageal reflux [K21.9] 06/02/2020 Tracheobronchitis [J40] 09/17/2009 02/09/2014 Cough [R05.9] 09/17/2009 02/09/2014 Elevated liver enzymes [R74.8] 10/17/2013 Erosive esophagitis [K22.10] 12/12/2013 Diabetes (HCC) [E11.9] 01/20/2014 11/22/2018 Elevated LFTs [R79.89] 02/09/2014 02/09/2014 Knee pain [M25.569] 05/05/2014 Routine health maintenance [Z00.00] 07/07/2014 Obesity (BMI 30.0-34.9) [E66.9] 07/28/2014 06/02/2020 Primary open angle glaucoma [H40.1190] 02/15/2016 Annual physical exam [Z00.00] 05/29/2017 06/02/2020 Cancer of sigmoid colon (HCC) [C18.7] 07/13/2017 Type 2 diabetes mellitus without complication, *07/13/2017 Rectal cancer (HCC) [C20] 08/02/2017 BMI 39.0-39.9,adult [Z68.39] 08/06/2017 Hypotension [I95.9] 08/06/2017 08/06/[address] (HCC) [Z93.2] 08/06/2017 04/03/2018 Hypokalemia [E87.6] 08/06/2017 08/06/2017 Post-op pain [G89.18] 08/06/2017 06/02/2020 Fibromyalgia [M79.7] History of rectal cancer [Z85.048] 11/05/2017 Attention to ileostomy (HCC) [Z43.2] 11/06/2017 04/03/2018 Malnutrition of mild degree (HCC) [E44.1] 11/06/2017 06/02/2020 Vitamin D deficiency [E55.9] 02/18/2018 Ventral hernia without obstruction or gangrene *04/17/2018 06/02/2020 Family history of colon cancer [Z80.0] 05/15/2018 06/02/2020 Incisional hernia [K43.2] 06/26/2018 06/02/2020 Coronary artery disease involving [place]*06/02/2020 Fatty liver [K76.0] 02/08/2021 Morbid obesity (HCC) [E66.01] 02/08/2021 Burning sensation of feet [R20.8] 08/03/2023 History of colonic polyps [Z86.010] 08/31/2023 Encounter Status:Closed by EVERETTE CROSS on 10/02/23 Normal [facility] WALDO ZEE ([id number]) 1960 M [facility] Date Time Provider Department 10/02/23 EVERETTE CROSS During your visit today, we recorded the following information about you: NisreenOziel toure 10/02/2023 12:02 PM Signed Patient called today regarding his recent CT scan Would like to discuss results, and has additional questions Please contact the patient, he can be reached at [phone] Johnny Funes, RN 10/02/2023 2:16 PM Signed Called patient back and answered his questions. Patient verbalized understanding. Allergies As of Date: 10/02/2023 Noted Allergy Reaction ATORVASTATIN 03/15/2023 8 - GI Upset Comments: Cause acid reflux DUST MITES 11/11/2009 ROSUVASTATIN 03/15/2023 8 - GI Upset Comments: Cause acid reflux Date Reviewed: 09/28/2023 Reviewed by: Virginie Benavidez, RT(R) - Fully Assessed Reason for Visit: Results [95] Prescriptions as of 10/02/2023 - tamsulosin (FLOMAX) 0.4 mg Take 1 capsule by mouth daily at bedtime. - metFORMIN (GLUCOPHAGE) 500 mg tablet Take 2 pills with breakfast and 1 pill with dinner - pantoprazole DR (PROTONIX) 40 mg tablet Take 1 tablet by mouth once daily. - metoprolol tartrate, short acting, (LOPRESSOR) 25 mg tablet Takes half of pill twice daily - ergocalciferol 50,000 unit capsule (VITAMIN D2, DRISDOL) Take 1 capsule by mouth one time a week. - levothyroxine (LEVOXYL) 50 mcg tablet Take 1 tablet by mouth once daily. Take on empty stomach. For Thyroid - lactulose (ENULOSE) 10 gram/15 mL solution Take 30 mL by mouth twice daily. - losartan (COZAAR) 25 mg tablet Take 1 tablet by mouth once daily. - nitroglycerin sublingual (NITROQUICK) 0.4 mg SL tablet Dissolve 1 tablet under the tongue every 5 minutes as needed for Chest Pain. - COMPOUNDED PRESCRIPTION Diabetic arch supports Dx: E11.9 M72.2 - aspirin 81 mg chewable tablet Take 1 tablet by mouth once daily. - multivitamin tablet Take 1 tablet by mouth once daily. - cetirizine (ZYRTEC) 10 mg tablet Take 10 mg by mouth once daily as needed for cold/allergy symptoms. - acetaminophen (TYLENOL) 500 mg tablet Take 500 mg by mouth every 8 hours as needed. - latanoprost (XALATAN) 0.005 % ophthalmic solution Use 1 Drop in both eyes daily at bedtime. Problem List As Of Date 10/02/2023 Noted Resolved Mixed hyperlipidemia [E78.2] Esophageal reflux [K21.9] 06/02/2020 Tracheobronchitis [J40] 09/17/2009 02/09/2014 Cough [R05.9] 09/17/2009 02/09/2014 Elevated liver enzymes [R74.8] 10/17/2013 Erosive esophagitis [K22.10] 12/12/2013 Diabetes (HCC) [E11.9] 01/20/2014 11/22/2018 Elevated LFTs [R79.89] 02/09/2014 02/09/2014 Knee pain [M25.569] 05/05/2014 Routine health maintenance [Z00.00] 07/07/2014 Obesity (BMI 30.0-34.9) [E66.9] 07/28/2014 06/02/2020 Primary open angle glaucoma [H40.1190] 02/15/2016 Annual physical exam [Z00.00] 05/29/2017 06/02/2020 Cancer of sigmoid colon (HCC) [C18.7] 07/13/2017 Type 2 diabetes mellitus without complication, *07/13/2017 Rectal cancer (HCC) [C20] 08/02/2017 BMI 39.0-39.9,adult [Z68.39] 08/06/2017 Hypotension [I95.9] 08/06/2017 08/06/[address] (HCC) [Z93.2] 08/06/2017 04/03/2018 Hypokalemia [E87.6] 08/06/2017 08/06/2017 Post-op pain [G89.18] 08/06/2017 06/02/2020 Fibromyalgia [M79.7] History of rectal cancer [Z85.048] 11/05/2017 Attention to ileostomy (HCC) [Z43.2] 11/06/2017 04/03/2018 Malnutrition of mild degree (HCC) [E44.1] 11/06/2017 06/02/2020 Vitamin D deficiency [E55.9] 02/18/2018 Ventral hernia without obstruction or gangrene *04/17/2018 06/02/2020 Family history of colon cancer [Z80.0] 05/15/2018 06/02/2020 Incisional hernia [K43.2] 06/26/2018 06/02/2020 Coronary artery disease involving [place]*06/02/2020 Fatty liver [K76.0] 02/08/2021 Morbid obesity (HCC) [E66.01] 02/08/2021 Burning sensation of feet [R20.8] 08/03/2023 History of colonic polyps [Z86.010] 08/31/2023 Encounter Status:Closed by JOHNNY FUNES on 10/02/23 Normal [facility] CT Kidney WO and W contrast Karla 10-01-2023 [facility] CT UROGRAM WO/W IVCONon 09-13 CT UROGRAM WO/W IVCON * * *Final Report* * * DATE OF EXAM: Oct 01 2023 1:51PM [facility] 0560 - CT UROGRAM WO/W IVCON / PROCEDURE REASON: Gross hematuria * * * * Physician Interpretation * * * * EXAMINATION: CT ABDOMEN AND PELVIS WITHOUT AND WITH IV CONTRAST, INCLUDING EXCRETORY PHASE IMAGING (CT UROGRAM) 3D RECONSTRUCTIONS CLINICAL HISTORY: Gross hematuria. TECHNIQUE: CT urogram protocol including unenhanced, renal parenchymal phase and excretory phase renal imaging was obtained following IV contrast. Normal saline was also administered IV. No oral contrast was given. 3D image post-processing was performed and archived at the request of the referring physician, on the CT scanner workstation without concurrent physician supervision. MQ: CTU_2 Contrast: IV: 150 ml of Omnipaque 300 IV Saline: 100 ml of 0.9% NACL Solution Oral Contrast: None CT Radiation dose: Integrated dose-length product (DLP) for this visit = 2220 mGy*cm. CT Dose Reduction Employed: Automated exposure control(AEC) and iterative recon COMPARISON: 06/23/2022, and others RESULT: Kidneys and urinary tract: Right: Peripelvic right renal calculi measuring less than 3 mm. The opacified calices, renal pelvis and ureter are normal without dilation, filling defect, or stricture. Left: 6 mm x 5 mm stone terminal left ureter at the UVJ. Remaining small peripelvic intrarenal calculi measuring up to 2 mm. The opacified calices, renal pelvis and ureter are normal without dilation, filling defect, or stricture. Bladder: No filling defect, calculus, focal or diffuse wall thickening. Abdomen and Pelvis: Liver: No mass. Biliary: No bile duct dilation. Cholelithiasis. Spleen: No mass. No splenomegaly. Pancreas: No mass or duct dilation. Adrenals: No mass. GI tract: No dilation or wall thickening. Lymph nodes: No abdominal or pelvic lymphadenopathy. Mesentery/Peritoneum: No ascites or mass. Retroperitoneum: No mass. Vasculature: Atherosclerotic changes of the aorta and major branches. No aneurysm is identified. Pelvis: No mass, ascites or fluid collection. Bones and Soft Tissues: No significant finding. Lower thorax: Unremarkable. Jewel Hole Cornerer (topogram) images: Unremarkable. IMPRESSION: 6 mm x 5 mm terminal left ureteral calculus. Small remaining peripelvic bilateral intrarenal calculi. Cholelithiasis 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: [place] Transcribe Date/Time: Oct 01 2023 2:27P Dictated by : CIRA SWIFT MD This examination was interpreted and the report reviewed and electronically signed by: CIRA SWIFT MD on Oct 01 2023 2:30PM EST [id number] Normal [facility] CREATININE BLDon 09-28-2023 Creatinine [Mass/Vol] 1.13 mg/dL Normal 0.73-1.22 [facility] Comment on above: Order Comment: Speci men Type: BLOOD SPECIMENOrdering Facility: [facility] Address: [address] [place] [id number] Performed By: #### C RET1 ####[facility] [id number] [place] [address] [place] Creatinine and Glomerular filtration rate.predicted panel (S/P/Bld) 74 mL/min/1.73m??? Normal >=60 [facility] Comment on above: Order Comment: Robyni men Type: BLOOD SPECIMENOrdering Facility: [facility] Address: [address] [place] [address] Result Comment: Jossie mated Glomerular Filtration Rate (eGFR) is calculated using the 2020 CKD-EPI creatinine equation. This equation utilizes serum creatinine, sex, and age as parameters. The creatinine assay has traceable calibration to isotope dilution-mass spectrometry. Refer to KDIGO guidelines for clinical interpretation. In patients with unstable renal function, e.g. those with acute kidney injury, the eGFR may not accurately reflect actual GFR. Performed By: #### C RET1 ####[facility] [id number] [place] [address] [place] Urinalysis complete pnl Uron 09-28-2023 Urinalysis complete panel (U) COLOR: Dark Yellow CLARITY: Cloudy GLUCOSE, URINE: Negative BILIRUBIN, URINE: 1+ Suggest correlation with clinical findings and serum bilirubin if clinically indicated. KETONES, URINE: Trace SPECIFIC GRAVITY, UR: 1.028 HEMOGLOBIN/BLOOD, UR: Negative PH, URINE: 5.5 PROTEIN, URINE: 1+ UROBILINOGEN: 1.0 EU/dL NITRITES: Negative LEUKEST: 1+ WBC, URINE: 11-20 /HPF RBC, URINE: 3-5 /HPF BACTERIA UL: 2645.8 SQUAMOUS EPITHELIAL CELLS: None Seen HYALINE CASTS: >10 /LPF CULTURE, URINE: No growth (<1,000 CFU/ml) Abnormal [facility] Comment on above: Order Comment: Speci men Type: URINE SPECIMENOrdering Facility: [facility] Address: [address] [place] [address] Performed By: #### 2 [id number] ####[facility] LABCLIA [id number] [address] [place] CNOVon 09-17-2023 CNOV Office Visit (UROLMD ) WALDO ZEE ([id number]) 1960 M [facility] Date Time Provider Department 09/17/23 1:30 PM EVERETTE CROSS During your visit today, we recorded the following information about you: Pulse Respiration Blood pressure Weight 71/minute 16/minute 130/91 113.9 kg Height 1.803 m Everette Cross APRN.SENIOR CONTROL SYSTEMS ENGINEER, DNP 09/28/2023 4:12 PM Addendum [facility] Urology - [facility] Referring provider: Bettye Powell MD New patient to Urology 09/17/2023 Chief Complaint Patient presents with: Kidney Stones HPI Waldo Zee is a 63 year old male who presents here today for a history of urinary symptoms and kidney stones. Hx sig for - Rectal cancer, DM, Obesity, Hypothyroidism, This is an established patient of Dr. Bettye Powell MD. This is a new patient to me. Denies any recent urgent care visits, ER visits or hospitalizations. Hx of Colorectal Cancer - stage 1 Dx'd 07/2017. Established patient of our Urology team. 3 weeks ago noticed gross blood to his urine x 1 day. Restarted taking his Flomax and his symptoms improved. Denies dysuria, burning, urgency, and frequency. No blood in the urine. No fever or chills. Denies suprapubic pain. Denies frequent UTI's. - Dull back ache and testicles ache over the past few weeks. Seen Dr. Gallegos on 07/11/22: Who performed a LASER CYSTOURETHROSCOPY W/ URETEROSCOPY AND/OR PYELOSCOPY W/ LITHOTRIPSY HOLMIUM - Right with Raymundo Gallegos MD on 07/11/2022 LUTS: Obstructive: Poor/Weak stream: No Hesitancy: No Intermittency: Yes Double voiding No Post-void dribbling: No Incomplete emptying: No Irritative: Nocturnal Frequency: No Urgency: No Frequency: No Dysuria: No Incontinence: No Microscopic Hematuria: No Gross Hematuria: Yes Past medical history, appointments, medications, allergies reviewed 09/17/2023 Previous Medical History PAST MEDICAL HISTORY Diagnosis Date Coronary artery disease Diabetes (HCC) Esophageal reflux Fibromyalgia Glaucoma Hypertension Kidney stone Kidney stones 2022 Non-STEMI (non-ST elevated myocardial infarction) (HCC) 10/24/2018 Other and unspecified hyperlipidemia Rectal cancer (HCC) Diagnostic laparoscopy, open low anterior rectal and sigmoid resection, mobilization of splenic flexure, flexible sigmoidoscopy, diverting loop ileostomy 07/2017 Thyroid disease Previous Surgical History PAST SURGICAL HISTORY Procedure Laterality Date ABDOMINAL SURGERY HX CARDIAC CATH 10/24/2018 [facility] with stent placement COLON SURGERY HX COLONOSCOPY FLX DX W/COLLJ SPEC WHEN PFRMD 06/13/2017 Colonoscopy COLONOSCOPY FLX DX W/COLLJ SPEC WHEN PFRMD 05/29/2018 Colonoscopy COLONOSCOPY FLX DX W/COLLJ SPEC WHEN PFRMD 06/26/2019 Colonoscopy COLONOSCOPY FLX DX W/COLLJ SPEC WHEN PFRMD 07/02/2020 Colonoscopy ESOPHAGOGASTRODUODENOSCOPY TRANSORAL DIAGNOSTIC EGD HERNIA REPAIR HX 2018 incisional LITHOLINK CKD PROGRAM 07/11/2022 PAST SURGICAL HISTORY OF 07/2017 Diagnostic laparoscopy, open low anterior rectal and sigmoid resection, mobilization of splenic flexure, flexible sigmoidoscopy, diverting loop ileostomy PAST SURGICAL HISTORY OF 11/05/2017 ileostomy reversal PSA (EXTERNAL) 06/14/2015 normal (0.76) [facility] REMOVAL OF KIDNEY STONE 2022 Family History FAMILY HISTORY Adopted: Yes Problem Relation Age of Onset Hypertension Mother other (auto immune hepatitis) Mother other (unknown) Father Diabetes Maternal Grandmother None Maternal Grandfather other (unknown) Paternal Grandmother other (unknown) Paternal Grandfather None Daughter other (Other) Sister blood clot 1/2 sister other (hormone issues) Daughter Patient Allergies ALLERGIES Allergen Reactions Atorvastatin GI Upset Cause acid reflux Dust Mites Rosuvastatin GI Upset Cause acid reflux Current Medications Current Outpatient Medications on File Prior to Visit Medication Sig metFORMIN (GLUCOPHAGE) 500 mg tablet Take 2 pills with breakfast and 1 pill with dinner pantoprazole DR (PROTONIX) 40 mg tablet Take 1 tablet by mouth once daily. metoprolol tartrate, short acting, (LOPRESSOR) 25 mg tablet Takes half of pill twice daily ergocalciferol 50,000 unit capsule (VITAMIN D2, DRISDOL) Take 1 capsule by mouth one time a week. levothyroxine (LEVOXYL) 50 mcg tablet Take 1 tablet by mouth once daily. Take on empty stomach. For Thyroid tamsulosin (FLOMAX) 0.4 mg Take 1 capsule by mouth daily at bedtime. (Patient taking differently: Take 0.4 mg by mouth once daily as needed.) lactulose (ENULOSE) 10 gram/15 mL solution Take 30 mL by mouth twice daily. (Patient not taking: Reported on 08/23/2023) losartan (COZAAR) 25 mg tablet Take 1 tablet by mouth once daily. nitroglycerin sublingual (NITROQUICK) 0.4 mg SL tablet Dissolve 1 tablet under the tongue every 5 minutes as needed for Chest (more content not included)... Normal [facility] UA DIP, URINE (POC)on 2023 BILIRUBIN UA (POCT) Negative Negative [facility] CLARITY UA (POCT) Clear [facility] COLOR UA (POCT) Yellow [facility] GLUCOSE UA (POCT) Negative Negative mg/dL [facility] Hemoglobin Ql (U) Trace-intact Abnormal Negative [facility] KETONE UA (POCT) Negative Negative mg/dL [facility] LEUKOCYTES UA (POCT) Negative Negative [facility] NITRITE UA (POCT) Negative Negative [facility] PH UA (POCT) 6.0 4.5 - 8.0 [facility] Protein Ql (U) Negative Negative mg/dL [facility] SPECIFIC GRAVITY UA (POCT) 1.020 1.005 - 1.030 [facility] UROBILINOGEN UA (POCT) 0.2 E.U./dL Normal E.U./dL [facility] Bacteria Ur Culton Bacteria identified Cx Nom (U) CULTURE, URINE: No growth (<1,000 CFU/ml) Normal [facility] Comment on above: Performed By: #### 6 30-4 ####[facility] LABCLIA [id number] [address] [place] CNOVon 09-11-2023 CNOV Office Visit (UCWSTR ) WALDO ZEE ([id number]) 1960 M [facility] Date Time Provider Department 09/11/23 1:45 PM TIFFANY TA UCWSTR During your visit today, we recorded the following information about you: Temperature Pulse Respiration Blood pressure 97.1 degrees 76/minute 16/minute 128/72 Weight 114.8 kg Tiffany Ta, JONES 09/11/2023 2:11 PM Signed This note was created using eCurvriter. Subjective Waldo Zee is a 63 year old male. HPI Presents with urinary frequency and dysuria for a week. He thinks he had passed the stone initially. He has had kidney stones several times before. He had to have lithotripsy last year for 1 that was 10 mm. He went to make sure there was not another stone stuck. He has had some mild flank pain. No vomiting. No fever. There has been blood in urine. Review of Systems Genitourinary: Positive for dysuria, flank pain, frequency, hematuria, testicular pain and urgency. Negative for penile discharge and penile pain. All other systems reviewed and are negative. PAST MEDICAL HISTORY Diagnosis Date Coronary artery disease Diabetes (HCC) Esophageal reflux Fibromyalgia Glaucoma Hypertension Kidney stone Kidney stones 2022 Non-STEMI (non-ST elevated myocardial infarction) (HCC) 10/24/2018 Other and unspecified hyperlipidemia Rectal cancer (HCC) Diagnostic laparoscopy, open low anterior rectal and sigmoid resection, mobilization of splenic flexure, flexible sigmoidoscopy, diverting loop ileostomy 07/2017 Thyroid disease Current Outpatient Medications Medication Sig Dispense Refill metFORMIN (GLUCOPHAGE) 500 mg tablet Take 2 pills with breakfast and 1 pill with dinner [address] (PROTONIX) 40 mg tablet Take 1 tablet by mouth once daily. 90 tablet 3 metoprolol tartrate, short acting, (LOPRESSOR) 25 mg tablet Takes half of pill twice daily 90 tablet 3 ergocalciferol 50,000 unit capsule (VITAMIN D2, DRISDOL) Take 1 capsule by mouth one time a week. 12 capsule 3 levothyroxine (LEVOXYL) 50 mcg tablet Take 1 tablet by mouth once daily. Take on empty stomach. For Thyroid 90 tablet 3 tamsulosin (FLOMAX) 0.4 mg Take 1 capsule by mouth daily at bedtime. (Patient taking differently: Take 0.4 mg by mouth once daily as needed.) 90 capsule 3 losartan (COZAAR) 25 mg tablet Take 1 tablet by mouth once daily. 90 tablet 3 nitroglycerin sublingual (NITROQUICK) 0.4 mg SL tablet Dissolve 1 tablet under the tongue every 5 minutes as needed for Chest Pain. 1 Bottle of 25 2 COMPOUNDED PRESCRIPTION Diabetic arch supports Dx: E11.9 M72.2 2 Each 0 aspirin 81 mg chewable tablet Take 1 tablet by mouth once daily. 90 tablet 3 multivitamin tablet Take 1 tablet by mouth once daily. cetirizine (ZYRTEC) 10 mg tablet Take 10 mg by mouth once daily as needed for cold/allergy symptoms. acetaminophen (TYLENOL) 500 mg tablet Take 500 mg by mouth every 8 hours as needed. latanoprost (XALATAN) 0.005 % ophthalmic solution Use 1 Drop in both eyes daily at bedtime. lactulose (ENULOSE) 10 gram/15 mL solution Take 30 mL by mouth twice daily. (Patient not taking: Reported on 08/23/2023) 237 mL 1 No current facility-administered medications for this visit. PAST SURGICAL HISTORY Procedure Laterality Date ABDOMINAL SURGERY HX CARDIAC CATH 10/24/2018 [facility] with stent placement COLON SURGERY HX COLONOSCOPY FLX DX W/COLLJ SPEC WHEN PFRMD 06/13/2017 Colonoscopy COLONOSCOPY FLX DX W/COLLJ SPEC WHEN PFRMD 05/29/2018 Colonoscopy COLONOSCOPY FLX DX W/COLLJ SPEC WHEN PFRMD 06/26/2019 Colonoscopy COLONOSCOPY FLX DX W/COLLJ SPEC WHEN PFRMD 07/02/2020 Colonoscopy ESOPHAGOGASTRODUODENOSCOPY TRANSORAL DIAGNOSTIC EGD HERNIA REPAIR HX 2018 incisional LITHOLINK CKD PROGRAM 07/11/2022 PAST SURGICAL HISTORY OF 07/2017 Diagnostic laparoscopy, open low anterior rectal and sigmoid resection, mobilization of splenic flexure, flexible sigmoidoscopy, diverting loop ileostomy PAST SURGICAL HISTORY OF 11/05/2017 ileostomy reversal PSA (EXTERNAL) 06/14/2015 normal (0.76) [facility] REMOVAL OF KIDNEY STONE 2022 FAMILY HISTORY Adopted: Yes Problem Relation Age of Onset Hypertension Mother other (auto immune hepatitis) Mother other (unknown) Father Diabetes Maternal Grandmother None Maternal Grandfather other (unknown) Paternal Grandmother other (unknown) Paternal Grandfather None Daughter other (Other) Sister blood clot 1/2 sister other (hormone issues) Daughter Social History Tobacco Use Smoking status: Former Types: Cigars Smokeless tobacco: Never Tobacco comments: Pt will have an occassional cigar.- done with cigars Vaping Use Vaping Use: Never used Substance Use Topics Alcohol use: Not Currently Comment: bourbon every two to three weeks Drug use: No Objective BP 128/72 Pulse 76 Temp 36.2 ?C (97.1 ?F) Resp 16 (more content not included)... Normal [facility] VITAMIN B12 BLOODon 05-05-20 Cobalamin (Vitamin B12) [Mass/Vol] 423 pg/mL 232 - 1,245 pg/mL [facility] ALBUMIN/CREAT RATIO RND URon 05-04-2023 Albumin DL <= 20 mg/L (U) [Mass/Vol] [facility] Albumin/Creatinin e (U) [Mass ratio] <30 mg/g [facility] Creatinine (U) [Mass/Vol] 160.0 mg/dL 20.0 - 300.0 mg/dL [facility] UA DIP, URINE (POC)on 2022 BILIRUBIN UA (POCT) Negative Negative [facility] CLARITY UA (POCT) Clear [facility] COLOR UA (POCT) Dark yellow [facility] GLUCOSE UA (POCT) Negative Negative mg/dL [facility] HEMOGLOBIN/BLOOD UA (POCT) Negative Negative [facility] KETONE UA (POCT) Negative Negative mg/dL [facility] LEUKOCYTES UA (POCT) Negative Negative [facility] NITRITE UA (POCT) Negative Negative [facility] PH UA (POCT) 6.5 4.5 - 8.0 [facility] Protein Ql (U) Negative Negative mg/dL [facility] SPECIFIC GRAVITY UA (POCT) 1.020 1.005 - 1.030 [facility] UROBILINOGEN UA (POCT) 0.2 E.U./dL Normal E.U./dL [facility] UA DIP, URINE (POC)on 2022 BILIRUBIN UA (POCT) Negative Negative [facility] CLARITY UA (POCT) Clear [facility] COLOR UA (POCT) Yellow [facility] GLUCOSE UA (POCT) Negative Negative mg/dL [facility] HEMOGLOBIN/BLOOD UA (POCT) Trace-intact Abnormal Negative [facility] KETONE UA (POCT) Negative Negative mg/dL [facility] LEUKOCYTES UA (POCT) Negative Negative [facility] NITRITE UA (POCT) Negative Negative [facility] PH UA (POCT) 6.0 4.5 - 8.0 [facility] Protein Ql (U) Negative Negative mg/dL [facility] SPECIFIC GRAVITY UA (POCT) 1.020 1.005 - 1.030 [facility] UROBILINOGEN UA (POCT) 0.2 E.U./dL Normal E.U./dL [facility] ANES POSTPROC EVALon 022 ANES POSTPROC EVAL HNO ID: [id number] Author: Ruiz Everett MD Service: Anesthesiology Author Type: Physician Type: Anesthesia Postprocedure Evaluation Filed: 07/12/2022 10:07 AM Note Text: POST ANESTHESIA EVALUATION NOTE : 1960 Procedure Summary Date: 07/11/22 Room / Location: [place] Anesthesia Start: 1254 Anesthesia Stop: 1327 Procedures: CYSTOSCOPY, RETROPYELOGRAM (Bladder) LASER CYSTOURETHROSCOPY W/ URETEROSCOPY AND/OR PYELOSCOPY W/ LITHOTRIPSY HOLMIUM (Right: Ureter) Diagnosis: Ureteral calculus, right (Ureteral calculus, right [N20.1]) Surgeons: Raymundo Gallegos MD Responsible Provider: Ruiz Everett MD Anesthesia Type: general ASA Status: 3 Anesthesia Type: general Airway Type: LMA Last Vitals Vitals Value Taken Time BP 163/91 07/11/22 1445 Temp 36.3 ?C (97.3 ?F) 07/11/22 1415 HR SpO2 67 07/11/22 1500 Resp 18 07/11/22 1500 SpO2 98 % 07/11/22 1500 Post Anesthesia Patient Status Patient Evaluation: PACU. PACU/ICU Patient Condition: stable. Anticipated Disposition: phase 2 then home. Neurological Status: aware and responsive. Pulmonary Status: breathing comfortably on room air Airway Control: returned to baseline unsupported. Cardiovascular Status: stable. Pain Management: clinically adequate Postoperative Hydration: acceptable. Intraoperative Events: no significant anesthesia events Post Operative Nausea/Vomiting Status: no significant post operative nausea or vomiting Recommendation: continue current plan of care. Anesthesia Observations No Documentation SIGNATURE: Ruiz Everett MD PATIENT NAME: Waldo Zee DATE: July 12, 2022 TIME: 10:07 AM CSN: [id number] [facility] 07-12-2022 CNPN Telephone (UROLAG) WALDO ZEE ([id number]) 1960 [facility] Date Time Provider Department 07/12/22 RAYMUNDO GALLEGOS UROASHANTI During your visit today, we recorded the following information about you: Raymundo Gallegos MD 07/12/2022 12:45 PM Signed Patient needs Litholink and follow-up with Pedro Ponce in [place] Michelle GAGNON 07/12/2022 12:54 PM Signed [facility]ink faxed. Will call pt to schedule with Pedro Ponce. Michelle GAGNON 07/13/2022 1:28 PM Signed Lm for pt to call back to explain litholink and get appt made to see Pedro Ponce. Michelle GAGNON 07/13/2022 2:28 PM Signed Pt is scheduled and aware to do litholink. Michelle GAGNON Allergies As of Date: 07/12/2022 Noted Allergy Reaction DUST MITES 11/11/2009 Date Reviewed: 07/11/2022 Reviewed by: Silvino Carballo, BUSHRA - Fully Assessed Reason for Visit: Appointment [[id number]] Prescriptions as of 07/13/2022 - oxycodone HCl (OXYCODONE ORAL) Take by mouth. - oxyCODONE-acetaminophen (PERCOCET) 5-325 mg tablet Take 1 tablet by mouth every 6 hours as needed for pain for up to 3 days. - tamsulosin (FLOMAX) 0.4 mg Take 1 capsule by mouth daily at bedtime. - tamsulosin (FLOMAX) 0.4 mg Take 1 capsule by mouth daily at bedtime for 7 days. - metoprolol tartrate, short acting, (LOPRESSOR) 25 mg tablet Takes half of pill twice daily - metFORMIN (GLUCOPHAGE) 500 mg tablet Take 1 tablet by mouth twice daily with meals. - pantoprazole DR (PROTONIX) 40 mg tablet Take 1 tablet by mouth once daily. - montelukast (SINGULAIR) 10 mg tablet Take 1 tablet by mouth daily at bedtime. - albuterol HFA (PROVENTIL HFA, VENTOLIN HFA) 90 mcg/actuation inhaler Inhale 2 Puffs as instructed every 6 hours as needed for wheezing/shortness of breath. - ergocalciferol 50,000 unit capsule (VITAMIN D2, DRISDOL) Take 1 capsule by mouth one time a week. - lactulose (ENULOSE) 10 gram/15 mL solution Take 30 mL by mouth twice daily. - fluticasone (FLONASE) 50 mcg/actuation nasal spray Use 2 Sprays in each nostril once daily. Rinse mouth after use. - levothyroxine (LEVOXYL) 50 mcg tablet Take 1 tablet by mouth once daily. Take on empty stomach. For Thyroid - losartan (COZAAR) 25 mg tablet Take 1 tablet by mouth once daily. - nitroglycerin sublingual (NITROQUICK) 0.4 mg SL tablet Dissolve 1 tablet under the tongue every 5 minutes as needed for Chest Pain. - docusate sodium (COLACE) 100 mg capsule Take 1 capsule by mouth twice daily. - COMPOUNDED PRESCRIPTION Diabetic arch supports Dx: E11.9 M72.2 - aspirin 81 mg chewable tablet Take 1 tablet by mouth once daily. - multivitamin tablet Take 1 tablet by mouth once daily. - cetirizine (ZYRTEC) 10 mg tablet Take 10 mg by mouth once daily. - acetaminophen (TYLENOL) 500 mg tablet Take 500 mg by mouth every 8 hours as needed. - latanoprost (XALATAN) 0.005 % ophthalmic solution Use 1 Drop in both eyes daily at bedtime. Problem List As Of Date 07/12/2022 Noted Resolved Mixed hyperlipidemia [E78.2] Esophageal reflux [K21.9] 06/02/2020 Tracheobronchitis [J40] 09/17/2009 02/09/2014 Cough [R05.9] 09/17/2009 02/09/2014 Elevated liver enzymes [R74.8] 10/17/2013 Erosive esophagitis [K22.10] 12/12/2013 Diabetes (HCC) [E11.9] 01/20/2014 11/22/2018 Elevated LFTs [R79.89] 02/09/2014 02/09/2014 Knee pain [M25.569] 05/05/2014 Routine health maintenance [Z00.00] 07/07/2014 Obesity (BMI 30.0-34.9) [E66.9] 07/28/2014 06/02/2020 Primary open angle glaucoma [H40.1190] 02/15/2016 Annual physical exam [Z00.00] 05/29/2017 06/02/2020 Cancer of sigmoid colon (HCC) [C18.7] 07/13/2017 Type 2 diabetes mellitus without complication, *07/13/2017 Rectal cancer (HCC) [C20] 08/02/2017 BMI 39.0-39.9,adult [Z68.39] 08/06/2017 Hypotension [I95.9] 08/06/2017 08/06/[address] (HCC) [Z93.2] 08/06/2017 04/03/2018 Hypokalemia [E87.6] 08/06/2017 08/06/2017 Post-op pain [G89.18] 08/06/2017 06/02/2020 Fibromyalgia [M79.7] History of rectal cancer [Z85.048] 11/05/2017 06/02/2020 Attention to ileostomy (HCC) [Z43.2] 11/06/2017 04/03/2018 Malnutrition of mild degree (HCC) [E44.1] 11/06/2017 06/02/2020 Vitamin D deficiency [E55.9] 02/18/2018 Ventral hernia without obstruction or gangrene *04/17/2018 06/02/2020 Family history of colon cancer [Z80.0] 05/15/2018 06/02/2020 Incisional hernia [K43.2] 06/26/2018 06/02/2020 Coronary artery disease involving [place]*06/02/2020 Fatty liver [K76.0] 02/08/2021 Morbid obesity (HCC) [E66.01] 02/08/2021 Encounter Status:Closed by RAYMUNDO GALLEGOS on 07/12/22 [facility] ANES PRE-OPon 07-11-2022 ANES PRE-OP HNO ID: [id number] Author: Ruiz Everett MD Service: Anesthesiology Author Type: Physician Type: Anesthesia Preprocedure Evaluation Filed: 07/11/2022 11:36 AM Note Text: ANESTHESIOLOGY DAY OF SURGERY NOTE : 1960 Procedure Information Date/Time: 07/11/22 1400 Procedures: CYSTOSCOPY, RETROPYELOGRAM (Bladder) LASER CYSTOURETHROSCOPY W/ URETEROSCOPY AND/OR PYELOSCOPY W/ LITHOTRIPSY HOLMIUM (Right: Ureter) INSERTION STENT URETERAL (Right: Ureter) Location: [place] [facility] 18 / [place] Surgeons: Raymundo Gallegos MD Estimated body mass index is 36.37 kg/m? as calculated from the following: Height as of 06/26/22: 180.3 cm (5' 11). Weight as of 06/26/22: 118.3 kg (260 lb 12.8 oz). Most recent hematocrit and potassium results: Hematocrit 40.7 06/23/2022 Potassium 4.0 06/23/2022 Relevant Problems CARDIO (+) Coronary artery disease involving [place] coronary artery of [place] heart without angina pectoris ENDO (+) Type 2 diabetes mellitus without complication, without long-term current use of insulin (HCC) GI (+) Erosive esophagitis -RENAL (+) Fatty liver I - PHYSICAL EVALUATION AIRWAY Patient intubated: No. Tracheostomy tube not present Mallampati: II. TM distance: >3 FB. Neck ROM: full ROM without neurological symptoms. Mouth opening: adequate. Short neck: no. Thick neck: no Mccall present: no DENTAL Normal dental observations. Additional exam findings: no II - ANESTHESIA PLAN ASA Score: 3 Anesthetic Plan: general Airway type: LMA NPO Status: adequate Beta Berta Monitoring Plan Monitoring plan: standard ASA. Post Procedure Analgesic Plan Postoperative analgesic plan: parenteral or oral opioids. Patient / Surrogate agrees to blood products: Yes Significant changes in the patient condition since the History and Physical, not otherwise documented in primary service progress note: no. Potential Anesthesia issues that may suggest increased risk of complications or contraindication to planned procedure: none. No vitals data found for the desired time range. No current facility-administered medications on file as of 07/11/2022. Outpatient Medications as of 07/11/2022 Medication Sig - metoprolol tartrate, short acting, (LOPRESSOR) 25 mg tablet Takes half of pill twice daily - metFORMIN (GLUCOPHAGE) 500 mg tablet Take 1 tablet by mouth twice daily with meals. - levothyroxine (LEVOXYL) 50 mcg tablet Take 1 tablet by mouth once daily. Take on empty stomach. For Thyroid - losartan (COZAAR) 25 mg tablet Take 1 tablet by mouth once daily. - multivitamin tablet Take 1 tablet by mouth once daily. - latanoprost (XALATAN) 0.005 % ophthalmic solution Use 1 Drop in both eyes daily at bedtime. - tamsulosin (FLOMAX) 0.4 mg Take 1 capsule by mouth daily at bedtime. - [] ondansetron orally disintegrating (ZOFRAN ODT) 4 mg disintegrating tablet Take 1 tablet by mouth every 6 hours as needed for nausea/vomiting for up to 7 days. - tamsulosin (FLOMAX) 0.4 mg Take 1 capsule by mouth daily at bedtime for 7 days. - [] cephALEXin (KEFLEX) 500 mg capsule Take 1 capsule by mouth twice daily for 7 days. - pantoprazole DR (PROTONIX) 40 mg tablet Take 1 tablet by mouth once daily. - montelukast (SINGULAIR) 10 mg tablet Take 1 tablet by mouth daily at bedtime. - albuterol HFA (PROVENTIL HFA, VENTOLIN HFA) 90 mcg/actuation inhaler Inhale 2 Puffs as instructed every 6 hours as needed for wheezing/shortness of breath. - ergocalciferol 50,000 unit capsule (VITAMIN D2, DRISDOL) Take 1 capsule by mouth one time a week. - lactulose (ENULOSE) 10 gram/15 mL solution Take 30 mL by mouth twice daily. - fluticasone (FLONASE) 50 mcg/actuation nasal spray Use 2 Sprays in each nostril once daily. Rinse mouth after use. - nitroglycerin sublingual (NITROQUICK) 0.4 mg SL tablet Dissolve 1 tablet under the tongue every 5 minutes as needed for Chest Pain. - docusate sodium (COLACE) 100 mg capsule Take 1 capsule by mouth twice daily. (Patient not taking: No sig reported) - COMPOUNDED PRESCRIPTION Diabetic arch supports Dx: E11.9 M72.2 - aspirin 81 mg chewable tablet Take 1 tablet by mouth once daily. - cetirizine (ZYRTEC) 10 mg tablet Take 10 mg by mouth once daily. - acetaminophen (TYLENOL) 500 mg tablet Take 500 mg by mouth every 8 hours as needed. I have interviewed and examined the patient. I have reviewed the medical record and/or the pre-anesthesia evaluation, pertinent labs, and test results. This contains updated information obtained within 48 hours of Surgery/Procedure. SIGNATURE: Ruiz Everett MD PATIENT NAME: Waldo Zee DATE: July 11, 2022 TIME: 11:35 AM CSN: [id number] Normal [facility] CALCULI ANALYSISon 2 Calculus analysis [Interp] [facility] Comment on above: Order Comment: Speci men Type: CALCULUS SPECIMEN Ordering Facility: [facility] Address: [address] [address] Result Comment: This test was developed and its performance characteristics determined by [facility]'s [facility] [place] ([facility]). It has not been cleared or approved by the FDA. [facility] is regulated under CLIA as qualified to perform high-complexity testing. This test is used for clinical purposes. It should not be regarded as investigational or for research. Performed By: #### C SA #### [facility] CLIA [id number] [address] [place] [address] [place] CALCULUS COLOR BROWN Normal [facility] Comment on above: Order Comment: Speci men Type: CALCULUS SPECIMEN Ordering Facility: [facility] Address: [address] [id number] Performed By: #### C SA #### [facility] CLIA [id number] [address] [place] [address] [place] CALCULUS COMPOSITION 1 50% Calcium Oxalate Dihydrate Normal [place] Comment on above: Order Comment: Speci men Type: CALCULUS SPECIMEN [facility]ing Facility: [facility] Address: [address] [address] Performed By: #### C SA #### [facility] CLIA [id number] [address] [place] CALCULUS COMPOSITION 2 40% Calcium Oxalate Monohydrate Normal [facility] Comment on above: Order Comment: Speci men Type: CALCULUS SPECIMEN [facility]ing Facility: [facility] Address: [address] [place] [address] Performed By: #### C SA #### [facility] CLIA [id number] [address] [place] CALCULUS COMPOSITION 3 10% Minor Components Normal [facility] Comment on above: Order Comment: Speci men Type: CALCULUS SPECIMEN [facility] Facility[facility] Address: [address] [place] [address] Performed By: #### C SA #### [facility] CLIA [id number] [address] [place] CALCULUS SIZE AND WT Multiple pieces. 0.0683 GRAMS Normal [place] Comment on above: Order Comment: Speci men Type: CALCULUS SPECIMEN [facility] Address: [address] [place] [address] Performed By: #### C SA #### [facility] CLIA [id number] [address] [place] CALCULUS TYPE CALCULI/CALCULUS Normal [facility] Comment on above: Order Comment: Speci men Type: CALCULUS SPECIMEN [facility] Address: [address] [place] [address] Result Comment: righ t renal Performed By: #### C SA #### [facility] CLIA [id number] [address] [place] [address] [place] HISTORY PHYSICALon 2 HISTORY PHYSICAL HNO ID: [id number] Author: Raymundo Gallegos MD Service: Urology Author Type: Physician Type: HANDP Filed: 07/11/2022 12:49 PM Note Text: Urology Inpatient Consultation 07/11/2022 HISTORY OF PRESENT ILLNESS: The patient is a 62 year old male with right ureteral calculus. PAST MEDICAL HISTORY: PAST MEDICAL HISTORY Diagnosis Date Coronary artery disease Diabetes (HCC) Esophageal reflux Fibromyalgia Glaucoma Kidney stone Non-STEMI (non-ST elevated myocardial infarction) (HCC) 10/24/2018 Other and unspecified hyperlipidemia Rectal cancer (HCC) Diagnostic laparoscopy, open low anterior rectal and sigmoid resection, mobilization of splenic flexure, flexible sigmoidoscopy, diverting loop ileostomy 07/2017 PAST SURGICAL HISTORY: PAST SURGICAL HISTORY Procedure Laterality Date CARDIAC CATH 10/24/2018 [facility] with stent placement COLONOSCOPY FLX DX W/COLLJ SPEC WHEN PFRMD 06/13/2017 Colonoscopy COLONOSCOPY FLX DX W/COLLJ SPEC WHEN PFRMD 05/29/2018 Colonoscopy COLONOSCOPY FLX DX W/COLLJ SPEC WHEN PFRMD 06/26/2019 Colonoscopy COLONOSCOPY FLX DX W/COLLJ SPEC WHEN PFRMD 07/02/2020 Colonoscopy ESOPHAGOGASTRODUODENOSCOPY TRANSORAL DIAGNOSTIC EGD HERNIA REPAIR HX 2018 incisional PAST SURGICAL HISTORY OF 07/2017 Diagnostic laparoscopy, open low anterior rectal and sigmoid resection, mobilization of splenic flexure, flexible sigmoidoscopy, diverting loop ileostomy PAST SURGICAL HISTORY OF 11/05/2017 ileostomy reversal PSA (EXTERNAL) 06/14/2015 normal (0.76) [facility] ALLERGIES: ALLERGIES Allergen Reactions Dust Mites HOME MEDICATIONS: oxycodone HCl (OXYCODONE ORAL), Take by mouth., Disp: , Rfl: , 07/10/2022 at 1900 tamsulosin (FLOMAX) 0.4 mg, Take 1 capsule by mouth daily at bedtime., Disp: 30 capsule, Rfl: 0, 07/10/2022 metoprolol tartrate, short acting, (LOPRESSOR) 25 mg tablet, Takes half of pill twice daily, Disp: 90 tablet, Rfl: 3, 07/11/2022 at 0700 metFORMIN (GLUCOPHAGE) 500 mg tablet, Take 1 tablet by mouth twice daily with meals., Disp: 180 tablet, Rfl: 3, 07/10/2022 levothyroxine (LEVOXYL) 50 mcg tablet, Take 1 tablet by mouth once daily. Take on empty stomach. For Thyroid, Disp: 90 tablet, Rfl: 3, 07/10/2022 losartan (COZAAR) 25 mg tablet, Take 1 tablet by mouth once daily., Disp: 90 tablet, Rfl: 3, 07/11/2022 at 0700 multivitamin tablet, Take 1 tablet by mouth once daily., Disp: , Rfl: , 07/10/2022 latanoprost (XALATAN) 0.005 % ophthalmic solution, Use 1 Drop in both eyes daily at bedtime., Disp: , Rfl: , 07/10/2022 tamsulosin (FLOMAX) 0.4 mg, Take 1 capsule by mouth daily at bedtime for 7 days., Disp: 7 capsule, Rfl: [address] (PROTONIX) 40 mg tablet, Take 1 tablet by mouth once daily., Disp: 90 tablet, Rfl: 3, 07/09/2022 montelukast (SINGULAIR) 10 mg tablet, Take 1 tablet by mouth daily at bedtime., Disp: 30 tablet, Rfl: 5 albuterol HFA (PROVENTIL HFA, VENTOLIN HFA) 90 mcg/actuation inhaler, Inhale 2 Puffs as instructed every 6 hours as needed for wheezing/shortness of breath., Disp: 1 Inhaler, Rfl: 1 ergocalciferol 50,000 unit capsule (VITAMIN D2, DRISDOL), Take 1 capsule by mouth one time a week., Disp: 13 capsule, Rfl: 3, 07/05/2022 lactulose (ENULOSE) 10 gram/15 mL solution, Take 30 mL by mouth twice daily., Disp: 237 mL, Rfl: 1, Unknown fluticasone (FLONASE) 50 mcg/actuation nasal spray, Use 2 Sprays in each nostril once daily. Rinse mouth after use., Disp: 1 Each, Rfl: 3 nitroglycerin sublingual (NITROQUICK) 0.4 mg SL tablet, Dissolve 1 tablet under the tongue every 5 minutes as needed for Chest Pain., Disp: 1 Bottle of 25, Rfl: 2, Unknown docusate sodium (COLACE) 100 mg capsule, Take 1 capsule by mouth twice daily. (Patient not taking: No sig reported), Disp: 50 capsule, Rfl: 1 COMPOUNDED PRESCRIPTION, Diabetic arch supports Dx: E11.9 M72.2, Disp: 2 Each, Rfl: 0 aspirin 81 mg chewable tablet, Take 1 tablet by mouth once daily., Disp: 90 tablet, Rfl: 3, 07/09/2022 cetirizine (ZYRTEC) 10 mg tablet, Take 10 mg by mouth once daily., Disp: , Rfl: , 07/08/2022 acetaminophen (TYLENOL) 500 mg tablet, Take 500 mg by mouth every 8 hours as needed., Disp: , Rfl: , Unknown FAMILY HISTORY: Family History Adopted: Yes Problem Relation Age of Onset Hypertension Mother other (auto immune hepatitis) Mother other (unknown) Father Diabetes Maternal Grandmother None Maternal Grandfather other (unknown) Paternal Grandmother other (unknown) Paternal Grandfather None Daughter other (Other) Sister blood clot 1/2 sister other (hormone issues) Daughter Social History: Tobacco Use: Types: Cigars Alcohol Use: Yes (bourbon every two to three weeks) ROS: Constitutional: negative for chills and fevers HEENT: no blurry vision or eye redness Respiratory: negative for hemoptysis and shortness of breath Cardiovascular: negative for dyspnea and syncope Gastrointestinal: negative for jaundice, (more content not included)... Normal [facility] OPERATIVE NOon 07-11-2022 OPERATIVE NO HNO ID: [id number] Author: Raymundo Gallegos MD Service: Urology Author Type: Physician Type: Operative Report Filed: 07/11/2022 1:29 PM Note Text: UROLOGY OPERATIVE REPORT PATIENT NAME: Waldo Zee DATE OF : 1960 TODAY'S DATE: 07/11/22 PreOp Dx: right ureteral calculus PostOp Dx: Same Operation: Cystoscopy, right ureteroscopy, laser lithotripsy, stone basket extraction Surgeon: Raymundo Gallegos MD Assist: Adolph Laboy MD EBL Minimal Drains/Stent: n/a Vitale: n/a Specimen: right ureteral calculus Medications/fluids: Per anesthesia notes Condition To PACU Start time: 1:05 PM End time: 1:20 PM Indications: Waldo Zee is a 62 year old patient who presents with a right ureteral calculus. After having a discussion on treatment options, risks and benefits, the patient wishes to proceed forward with surgical intervention. Patient was brought to the operating room and identified using name band/number. A thorough time out was performed and everyone present was in agreement. Patient was placed on OR table. Anesthesia and lines were maintained by the anesthesia team. Description of Procedure: Patient was placed in the dorsal lithotomy position, prepped with Betadine, and draped in the usual sterile fashion. Pressure points were padded. A 22 Taiwanese sheath rigid cystoscope was used to inspect both the urethra and bladder. The urethra had no strictures. After Thorough inspection bladder mucosa appeared normal with two ureteral orifices in orthotopic position. A 0.35 glidewire was placed in the right ureter up to the kidney under fluoroscopic guidance. A semirigid ureteroscope was advanced to the level of the calculus and a 365 micron laser fiber was used to fragment the calculus into tiny fragments which were subsequently evacuated utilizing a 1.9 escape basket. The ureter was examined with no obvious trauma or fragments. Decision was made to not place stent. The ureteroscope was exchanged for the cystoscope. The patient's bladder was emptied, any remaining calculi fragments flushed out, and the cystoscope was removed. Patient awoken from anesthesia having tolerated the procedure well. Waldo Zee was transferred to recovery room in stable condition. The primary surgeon was present and available for all chen components of the operation. Adolph Laboy MD Urology PGY-2 Pager #[phone] 07/11/2022 12:51 PM Normal [facility] XR ABDOMEN 1V SUPINEon 07-11 XR ABDOMEN 1V SUPINE * * *Final Report* * * DATE OF EXAM: Jul 11 2022 1:22PM [facility] [id number] - XR ABDOMEN 1V SUPINE / PROCEDURE REASON: cp * * * * Physician Interpretation * * * * INTRAOPERATIVE FLUOROSCOPIC EXAMINATION DATE: 07/11/2022 1:22 PM COMPARISON: CT examination of the abdomen and pelvis without contrast dated 06/23/2022. HISTORY: Obstructive right ureteral stone. ENCOUNTER: Not applicable TECHNIQUE: Images from fluoroscopic examination of the abdomen and pelvis during urologic procedure were submitted for interpretation. Fluoroscopic Radiation Summary: Plane A, Air Kerma: 0.5 mGy Dose Area Product (DAP): Fluoro time: 0:01 min:sec RESULT: Examination is limited due to fluoroscopic technique. Single fluoroscopic image(s) was/were submitted for interpretation. Single provided fluoroscopic image again demonstrates a distal right ureteral stone. No discrete contrast opacification of the urinary collecting system. IMPRESSION: Again noted is stone within the distal right ureter Please refer to procedure notes for full details. 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: [place] Transcribe Date/Time: Jul 13 2022 5:21P Dictated by : AMBAR ZURITA MD This examination was interpreted and the report reviewed and electronically signed by: AMBAR ZURITA MD on Jul 13 2022 5:24PM EST [id number] Normal [facility] CNPNon 06-28-2022 CNPN Telephone (AKURFL) WALDO ZEE ([id number]) 1960 [facility] Date Time Provider Department 06/28/22 RAYMUNDO GALLEGOS During your visit today, we recorded the following information about you: Mercedes Raman COORD 06/28/2022 8:53 AM Signed Pt is scheduled for CANDP, Rt ULL, possible Rt stent with Dr Gallegos at [facility] on 07/11/22 @ 1:55 (11:55 arrival). Urine culture ordered to be done 07/04. Pt given date, time, prep and arrival instructions over the phone. [employer] message sent also. Mercedes Raman COORD Allergies As of Date: 06/28/2022 Noted Allergy Reaction DUST MITES 11/11/2009 Date Reviewed: 06/26/2022 Reviewed by: Grisel Barrett MA - Fully Assessed Reason for Visit: Surgery Scheduled [Other] Prescriptions as of 06/28/2022 - tamsulosin (FLOMAX) 0.4 mg Take 1 capsule by mouth daily at bedtime. - ondansetron orally disintegrating (ZOFRAN ODT) 4 mg disintegrating tablet Take 1 tablet by mouth every 6 hours as needed for nausea/vomiting for up to 7 days. - tamsulosin (FLOMAX) 0.4 mg Take 1 capsule by mouth daily at bedtime for 7 days. - cephALEXin (KEFLEX) 500 mg capsule Take 1 capsule by mouth twice daily for 7 days. - metoprolol tartrate, short acting, (LOPRESSOR) 25 mg tablet Takes half of pill twice daily - metFORMIN (GLUCOPHAGE) 500 mg tablet Take 1 tablet by mouth twice daily with meals. - pantoprazole DR (PROTONIX) 40 mg tablet Take 1 tablet by mouth once daily. - montelukast (SINGULAIR) 10 mg tablet Take 1 tablet by mouth daily at bedtime. - albuterol HFA (PROVENTIL HFA, VENTOLIN HFA) 90 mcg/actuation inhaler Inhale 2 Puffs as instructed every 6 hours as needed for wheezing/shortness of breath. - ergocalciferol 50,000 unit capsule (VITAMIN D2, DRISDOL) Take 1 capsule by mouth one time a week. - lactulose (ENULOSE) 10 gram/15 mL solution Take 30 mL by mouth twice daily. - fluticasone (FLONASE) 50 mcg/actuation nasal spray Use 2 Sprays in each nostril once daily. Rinse mouth after use. - levothyroxine (LEVOXYL) 50 mcg tablet Take 1 tablet by mouth once daily. Take on empty stomach. For Thyroid - losartan (COZAAR) 25 mg tablet Take 1 tablet by mouth once daily. - nitroglycerin sublingual (NITROQUICK) 0.4 mg SL tablet Dissolve 1 tablet under the tongue every 5 minutes as needed for Chest Pain. - docusate sodium (COLACE) 100 mg capsule Take 1 capsule by mouth twice daily. - COMPOUNDED PRESCRIPTION Diabetic arch supports Dx: E11.9 M72.2 - aspirin 81 mg chewable tablet Take 1 tablet by mouth once daily. - multivitamin tablet Take 1 tablet by mouth once daily. - cetirizine (ZYRTEC) 10 mg tablet Take 10 mg by mouth once daily. - acetaminophen (TYLENOL) 500 mg tablet Take 500 mg by mouth every 8 hours as needed. - latanoprost (XALATAN) 0.005 % ophthalmic solution Use 1 Drop in both eyes daily at bedtime. Problem List As Of Date 06/28/2022 Noted Resolved Mixed hyperlipidemia [E78.2] Esophageal reflux [K21.9] 06/02/2020 Tracheobronchitis [J40] 09/17/2009 02/09/2014 Cough [R05.9] 09/17/2009 02/09/2014 Elevated liver enzymes [R74.8] 10/17/2013 Erosive esophagitis [K22.10] 12/12/2013 Diabetes (HCC) [E11.9] 01/20/2014 11/22/2018 Elevated LFTs [R79.89] 02/09/2014 02/09/2014 Knee pain [M25.569] 05/05/2014 Routine health maintenance [Z00.00] 07/07/2014 Obesity (BMI 30.0-34.9) [E66.9] 07/28/2014 06/02/2020 Primary open angle glaucoma [H40.1190] 02/15/2016 Annual physical exam [Z00.00] 05/29/2017 06/02/2020 Cancer of sigmoid colon (HCC) [C18.7] 07/13/2017 Type 2 diabetes mellitus without complication, *07/13/2017 Rectal cancer (HCC) [C20] 08/02/2017 BMI 39.0-39.9,adult [Z68.39] 08/06/2017 Hypotension [I95.9] 08/06/2017 08/06/[address] (HCC) [Z93.2] 08/06/2017 04/03/2018 Hypokalemia [E87.6] 08/06/2017 08/06/2017 Post-op pain [G89.18] 08/06/2017 06/02/2020 Fibromyalgia [M79.7] History of rectal cancer [Z85.048] 11/05/2017 06/02/2020 Attention to ileostomy (HCC) [Z43.2] 11/06/2017 04/03/2018 Malnutrition of mild degree (HCC) [E44.1] 11/06/2017 06/02/2020 Vitamin D deficiency [E55.9] 02/18/2018 Ventral hernia without obstruction or gangrene *04/17/2018 06/02/2020 Family history of colon cancer [Z80.0] 05/15/2018 06/02/2020 Incisional hernia [K43.2] 06/26/2018 06/02/2020 Coronary artery disease involving [place]*06/02/2020 Fatty liver [K76.0] 02/08/2021 Morbid obesity (HCC) [E66.01] 02/08/2021 Encounter Status:Closed by MERCEDES FITZPATRICK on 06/28/22 [facility] CNPAngelica 06-24-2022 CNPN Telephone (UROLAG) WALDO ZEE ([id number]) 1960 M [facility] Date Time Provider Department 06/24/22 AVIVA CORNELIUS During your visit today, we recorded the following information about you: Aviva Cornelius MD 06/24/2022 6:14 AM Signed ----- Message from Ann Emerson MD sent at 06/24/2022 3:52 AM EST ----- Pt in ED with kidney stone. Will need follow up please. Aviva Cornelius MD 06/24/2022 6:15 AM Signed Pt needs scheduled for stone treatment Yumiko Combs 06/26/2022 10:28 AM Signed Mercedes is there any way you would be able to help this patient? His just called wondering when they would hear back? Please advise, thank you Yumiko GAGNON 06/26/2022 4:[address] Gallegos, Would it be reasonable to add pt to your add-on time for , 06/29/22? Please advise. Thanks, Mercedes GAGNON 06/27/2022 1:40 PM Signed Spoke with pt. He declined appt with [facility]. Pt states he had consult yesterday at [facility] and has surgery planned for 08/18/22. I offered surgery sooner with Dr Gallegos at [facility] if he was interested. He states he will need to think about it and call me back if he wants to schedule here. Mercedes GAGNON 06/27/2022 3:59 PM Addendum Pt called back. He would like to proceed with surgery with Dr Gallegos. Surgery planned for 07/11/22- declined sooner date. Pt will finish the Keflex on 07/01/22. Do you want to recheck his urine before surgery? 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 - oxyCODONE-acetaminophen (PERCOCET) 5-325 mg tablet Take 1 tablet by mouth every 6 hours as needed for pain for up to 3 days. - ondansetron orally disintegrating (ZOFRAN ODT) 4 mg disintegrating tablet Take 1 tablet by mouth every 6 hours as needed for nausea/vomiting for up to 7 days. - tamsulosin (FLOMAX) 0.4 mg Take 1 capsule by mouth daily at bedtime for 7 days. - cephALEXin (KEFLEX) 500 mg capsule Take 1 capsule by mouth twice daily for 7 days. - metoprolol tartrate, short acting, (LOPRESSOR) 25 mg tablet Takes half of pill twice daily - metFORMIN (GLUCOPHAGE) 500 mg tablet Take 1 tablet by mouth twice daily with meals. - pantoprazole DR (PROTONIX) 40 mg tablet Take 1 tablet by mouth once daily. - montelukast (SINGULAIR) 10 mg tablet Take 1 tablet by mouth daily at bedtime. - albuterol HFA (PROVENTIL HFA, VENTOLIN HFA) 90 mcg/actuation inhaler Inhale 2 Puffs as instructed every 6 hours as needed for wheezing/shortness of breath. - ergocalciferol 50,000 unit capsule (VITAMIN D2, DRISDOL) Take 1 capsule by mouth one time a week. - lactulose (ENULOSE) 10 gram/15 mL solution Take 30 mL by mouth twice daily. - fluticasone (FLONASE) 50 mcg/actuation nasal spray Use 2 Sprays in each nostril once daily. Rinse mouth after use. - levothyroxine (LEVOXYL) 50 mcg tablet Take 1 tablet by mouth once daily. Take on empty stomach. For Thyroid - losartan (COZAAR) 25 mg tablet Take 1 tablet by mouth once daily. - nitroglycerin sublingual (NITROQUICK) 0.4 mg SL tablet Dissolve 1 tablet under the tongue every 5 minutes as needed for Chest Pain. - docusate sodium (COLACE) 100 mg capsule Take 1 capsule by mouth twice daily. - COMPOUNDED PRESCRIPTION Diabetic arch supports Dx: E11.9 M72.2 - aspirin 81 mg chewable tablet Take 1 tablet by mouth once daily. - multivitamin tablet Take 1 tablet by mouth once daily. - cetirizine (ZYRTEC) 10 mg tablet Take 10 mg by mouth once daily. - acetaminophen (TYLENOL) 500 mg tablet Take 500 mg by mouth every 8 hours as needed. - latanoprost (XALATAN) 0.005 % ophthalmic solution Use 1 Drop in both eyes daily at bedtime. Problem List As Of Date 06/24/2022 Noted Resolved Mixed hyperlipidemia [E78.2] Esophageal reflux [K21.9] 06/02/2020 Tracheobronchitis [J40] 09/17/2009 02/09/2014 Cough [R05.9] 09/17/2009 02/09/2014 Elevated liver enzymes [R74.8] 10/17/2013 Erosive esophagitis [K22.10] 12/12/2013 Diabetes (HCC) [E11.9] 01/20/2014 11/22/2018 Elevated LFTs [R79.89] 02/09/2014 02/09/2014 Knee pain [M25.569] 05/05/2014 Routine health maintenance [Z00.00] 07/07/2014 Obesity (BMI 30.0-34.9) [E66.9] 07/28/2014 06/02/2020 Primary open angle glaucoma [H40.1190] 02/15/2016 Annual physical exam [Z00.00] 05/29/2017 06/02/2020 Cancer of sigmoid colon (HCC) [C18.7] 07/13/2017 Type 2 diabetes mellitus without complication, *07/13/2017 Rectal cancer (HCC) [C20] 08/02/2017 BMI 39.0-39.9,adult [Z68.39] 08/06/2017 Hypotension [I95.9] 08/06/2017 08/06/2017 Ileost (more content not included)... Normal [facility] ED PROV NOTEon 06-24-2022 ED PROV NOTE HNO ID: [id number] Author: Demetris Hamilton DO Service: Emergency Medicine Author Type: Physician Type: ED Provider Notes Filed: 06/24/2022 4:22 AM Note Text: I saw and evaluated the patient. Discussed with the resident and agree with resident's findings and plan as documented in the resident's note. 62-year-old male presents to the ED complains of right flank pain for intermittently for the last several weeks. He was diagnosed with a 9 mm stone on his CT scan which was done by his PCP as an outpatient. He had some mild right hydronephrosis and he recently had some zev hematuria which has since resolved so his primary care physician told him to come to the ED for assessment and to have his kidneys evaluated. He also occasionally has some pain that radiates to the right groin region. He denies chest pain shortness of breath or abdominal pain. Occasionally he will have some nausea when the pain increases but no vomiting or diarrhea. No dysuria currently his urine is dark yellow no hematuria. He denies fevers chills or sweats. He has a longstanding history of kidney stones for several years. He does not currently follow with a urologist as he states he is normally able to pass them on his own at home. HEENT head is normocephalic atraumatic extraocular muscles are intact sclera is nonicteric neck is supple normal passive range of motion no JVD. Cardiovascular heart is regular rate rhythm without murmurs gallops or rubs. Lungs clear to auscultation bilaterally without wheezes rales or rhonchi. Abdomen is soft with no point tenderness to palpation. He has normal active bowel sounds no rebound rigidity or guarding no peritoneal signs. Back he has some right-sided CVA discomfort. Skin warm and dry without rashes. Neurologic alert awake and appropriate no focal neurologic deficits. Psychiatric patient is calm and cooperative with a normal affect. ED course the patient was seen and evaluated in the emergency department by myself as well as the resident. Laboratory evaluation revealed 2+ hemoglobin greater than 25 red blood cells negative for infection. Renal function was normal. He had a white blood cell count of 13,120 with normal hemoglobin and hematocrit. Dr. Strange discussed the case with urology who felt the patient could be seen as an outpatient this week and scheduled for outpatient lithotripsy. The patient's pain is controlled in the ED. We will discharge him with Percocet he can use ibuprofen if needed for discomfort he will also receive Flomax and Zofran. And urology wanted him empirically placed on Keflex. The care plan was reviewed with the patient and his at the bedside they are comfortable with this plan of care and all of their questions were answered. The patient was told to return for increasing or intractable pain persistent vomiting or fever over 100.4. The patient was also told to return for any new concerning or worsening symptoms. Demetris Hamilton DO 06/24/22 0422 [facility] ED PROV NOTE HNO ID: [id number] Author: Florian Strange DO Service: Emergency Medicine Author Type: Resident Type: ED Provider Notes Filed: 06/24/2022 4:17 AM Note Text: Attestation signed by Demetris Hamilton DO at 06/25/2022 12:37 AM I saw and evaluated the patient. Discussed with the resident and agree with resident's findings and plan as documented in the resident's note. ED Provider Note Patient Name: Waldo Zee : 1960 SERVICE DATE: 06/23/22 History Patient presents with: Sent By Md: Pt had CT scan for kidney stone done today and received a call that he needed to come in. Denies fevers/chills/n/v. CT shows obstructing 9mm right uretal stone. States decreased urine output. Patient is a 62-year-old male with history of kidney stones presenting to the ED with complaints of right flank pain after recent diagnosis of kidney stone on CT scan. Patient states he has had this pain for the past 4 to 6 weeks but has intensifying over the past few days. Recent outpatient CT of the right flank showed 8 to 9 mm stone in the distal ureter with mild right hydronephrosis. Patient states he is recently noticed zev hematuria and has had mildly decreased urine output, but denies any fever or chills or dysuria. He also admits to mild testicular pain. PAST MEDICAL HISTORY Diagnosis Date Coronary artery disease Diabetes (HCC) Esophageal reflux Fibromyalgia Glaucoma Non-STEMI (non-ST elevated myocardial infarction) (HCC) 10/24/2018 Other and unspecified hyperlipidemia Rectal cancer (HCC) Diagnostic laparoscopy, open low anterior rectal and sigmoid resection, mobilization of splenic flexure, flexible sigmoidoscopy, diverting loop ileostomy 07/2017 PAST SURGICAL HISTORY Procedure Laterality Date ABDOMINAL SURGERY HX CARDIAC CATH 10/24/2018 [facility] with stent placement COLON SURGERY HX COLONOSCOPY FLX DX W/COLLJ SPEC WHEN PFRMD 06/13/2017 Colonoscopy COLONOSCOPY FLX DX W/COLLJ SPEC WHEN PFRMD 05/29/2018 Colonoscopy COLONOSCOPY FLX DX W/COLLJ SPEC WHEN PFRMD 06/26/2019 Colonoscopy COLONOSCOPY FLX DX W/COLLJ SPEC WHEN PFRMD 07/02/2020 Colonoscopy ESOPHAGOGASTRODUODENOSCOPY TRANSORAL DIAGNOSTIC EGD HERNIA REPAIR HX PAST SURGICAL HISTORY OF 07/2017 Diagnostic laparoscopy, open low anterior rectal and sigmoid resection, mobilization of splenic flexure, flexible sigmoidoscopy, diverting loop ileostomy PAST SURGICAL HISTORY OF 11/05/2017 ileostomy reversal PSA (EXTERNAL) 06/14/2015 normal (0.76) [facility] FAMILY HISTORY Adopted: Yes Problem Relation Age of Onset Hypertension Mother other (auto immune hepatitis) Mother other (unknown) Father Diabetes Maternal Grandmother None Maternal Grandfather other (unknown) Paternal Grandmother other (unknown) Paternal Grandfather None Daughter other (Other) Sister blood clot 1/2 sister other (hormone issues) Daughter Social History Tobacco Use Smoking status: Former Types: Cigars Quit date: 02/16/1988 Years since quittin.3 Smokeless tobacco: Never Tobacco comments: Pt will have an occassional cigar.- done with cigars Substance and Sexual Activity Alcohol use: Yes Comment: bourbon every two to three weeks Drug use: No Sexual activity: Yes Partners: Female ALLERGIES Allergen Reactions Dust Mites Review of Systems Constitutional: Negative for chills and fever. HENT: Negative for congestion and rhinorrhea. Eyes: Negative for visual disturbance. Respiratory: Negative for cough and shortness of breath. Cardiovascular: Negative for chest pain, palpitations and leg swelling. Gastrointestinal: Positive for nausea. Negative for diarrhea and vomiting. Genitourinary: Positive for flank pain, hematuria and testicular pain. Negative for dysuria. Musculoskeletal: Negative for arthralgias and myalgias. Skin: Negative for pallor and rash. Neurological: Negative for dizziness, weakness, numbness and headaches. Psychiatric/Behavioral: Negative for agitation. Physical Exam Vitals [06/23/221918] BP Pulse Temp Temp src Resp SpO2 Weight Height 153/87 88 36.3 ?C (97.4 ?F) Oral 18 99 % 116.1 kg (256 lb) -- Physical Exam Vitals and nursing note reviewed. Constitutional: General: He is not in acute distress. Appearance: Normal appearance. He is not toxic-appearing. HENT: Head: Normocephalic and atraumatic. Right Ear: External ear normal. Left Ear: External ear normal. Nose: Nose normal. No congestion or rhinorrhea. Mouth/Throat: Mouth: Mucous membranes are moist. Pharynx: Oropharynx is clear. Eyes: General: No scleral icterus. Extraocular Movements: Extraocular movements intact. Conjunctiva/sclera: Conjunctivae normal. Cardiovascular: Rate and Rhythm: Normal rate and regular rhythm. Pulses: Kina (more content not included)... Normal [facility] CBC W Auto Differential pane l (Bld)on 06-23-2022 Basophils (Bld) [#/Vol] 0.10 10*3/uL Normal <0.11 [facility] Comment on above: Order Comment: Speci men Type: BLOOD SPECIMEN Ordering Facility: [facility] Address: [address] [place] [id number] Performed By: #### 5 7021-8 #### [facility] CLIA [id number] [address] [place] [address] [place] Basophils/100 WBC (Bld) 0.8 % Normal [facility] Comment on above: Order Comment: Speci men Type: BLOOD SPECIMEN Ordering Facility: [facility] Address: [address] [place] [address] Performed By: #### 5 7021-8 #### [facility] CLIA [id number] [address] Differential cell count method Nom (Bld) Auto Normal [facility] Comment on above: Order Comment: Speci men Type: BLOOD SPECIMEN Ordering Facility: [facility] Address: [address] [place] [address] Performed By: #### 5 7021-8 #### [facility] CLIA [id number] [address] Eosinophils (Bld) [#/Vol] 0.22 10*3/uL Normal <0.46 [facility] Comment on above: Order Comment: Speci men Type: BLOOD SPECIMEN Ordering Facility: [facility] Address: [address] [place] [address] Performed By: #### 5 7021-8 #### [facility] CLIA [id number] [address] Eosinophils/100 WBC (Bld) 1.7 % Normal [facility] Comment on above: Order Comment: Speci men Type: BLOOD SPECIMEN Ordering Facility: [facility] Address: [address] [place] [address] Performed By: #### 5 7021-8 #### [facility] CLIA [id number] [address] [place] Erythrocyte distribution width (RBC) [Ratio] 15.0 % Normal 11.5-15.0 [facility] Comment on above: Order Comment: Speci men Type: BLOOD SPECIMEN Ordering Facility: [facility] Address: [address] [place] [address] Performed By: #### 5 7021-8 #### [facility] CLIA [id number] [address] [place] Hematocrit (Bld) [Volume fraction] 40.7 % Normal 39.0-51.0 [facility] Comment on above: Order Comment: Speci men Type: BLOOD SPECIMEN Ordering Facility: [facility] Address: [address] [place] [address] Performed By: #### 5 7021-8 #### [facility] CLIA [id number] [address] [place] Hemoglobin (Bld) [Mass/Vol] 13.2 g/dL Normal 13.0-17.0 [facility] Comment on above: Order Comment: Speci men Type: BLOOD SPECIMEN Ordering Facility: [facility] Address: [address] [place] [address] Performed By: #### 5 7021-8 #### [facility] CLIA [id number] [address] OF [place] Immature granulocytes (Bld) [#/Vol] 0.04 10*3/uL Normal <0.10 [facility] Comment on above: Order Comment: Speci men Type: BLOOD SPECIMEN Ordering Facility: [facility] Address: [address] [place] [address] Performed By: #### 5 7021-8 #### [facility] CLIA [id number] [address] OF [place] Immature granulocytes/100 WBC (Bld) 0.3 % Normal [facility] Comment on above: Order Comment: Speci men Type: BLOOD SPECIMEN Ordering Facility: [facility] Address: [address] [place] [address] Performed By: #### 5 7021-8 #### [facility] CLIA [id number] [address] [place] Lymphocytes (Bld) [#/Vol] 2.77 10*3/uL Normal 1.00-4.00 [facility] Comment on above: Order Comment: Speci men Type: BLOOD SPECIMEN Ordering Facility: [facility] Address: [address] [place] [address] Performed By: #### 5 7021-8 #### [facility] CLIA [id number] [address] Lymphocytes/100 WBC (Bld) 21.1 % Normal [facility] Comment on above: Order Comment: Speci men Type: BLOOD SPECIMEN Ordering Facility: [facility] Address: [address] [place] [address] Performed By: #### 5 7021-8 #### [facility] CLIA [id number] [address] MCH (RBC) [Entitic mass] 25.8 pg Low 26.0-34.0 [facility] Comment on above: Order Comment: Speci men Type: BLOOD SPECIMEN Ordering Facility: [facility] Address: [address] [place] [address] Performed By: #### 5 7021-8 #### [facility] CLIA [id number] [address] MCHC (RBC) [Mass/Vol] 32.4 g/dL Normal 30.5-36.0 [facility] Comment on above: Order Comment: Speci men Type: BLOOD SPECIMEN Ordering Facility: [facility] Address: [address] [place] [address] Performed By: #### 5 7021-8 #### [facility] CLIA [id number] [address] MCV (RBC) [Entitic vol] 79.6 fL Low 80.0-100.0 [facility] Comment on above: Order Comment: Speci men Type: BLOOD SPECIMEN Ordering Facility: [facility] Address: [address] [place] [address] Performed By: #### 5 7021-8 #### [facility] CLIA [id number] [address] Monocytes (Bld) [#/Vol] 0.80 10*3/uL Normal <0.87 [facility] Comment on above: Order Comment: Speci men Type: BLOOD SPECIMEN Ordering Facility: [facility] Address: [address] [address] Performed By: #### 5 7021-8 #### [facility] CLIA [id number] [address] Monocytes/100 WBC (Bld) 6.1 % Normal [facility] Comment on above: Order Comment: Speci men Type: BLOOD SPECIMEN Ordering Facility: [facility] Address: [address] [place] [address] Performed By: #### 5 7021-8 #### [facility] CLIA [id number] [address] [place] Neutrophils (Bld) [#/Vol] 9.19 10*3/uL High 1.45-7.50 [facility] Comment on above: Order Comment: Speci men Type: BLOOD SPECIMEN Ordering Facility: [facility] Address: [address] [place] [address] Performed By: #### 5 7021-8 #### [facility] CLIA [id number] [address] Neutrophils/100 WBC (Bld) 70.0 % Normal [facility] Comment on above: Order Comment: Speci men Type: BLOOD SPECIMEN Ordering Facility: [facility] Address: [address] [place] [address] Performed By: #### 5 7021-8 #### [facility] CLIA [id number] [address] [place] Nucleated RBC (Bld) [#/Vol] 10*3/uL Normal <0.01 [facility] Comment on above: Order Comment: Speci men Type: BLOOD SPECIMEN Ordering Facility: [facility] Address: [address] [place] [address] Performed By: #### 5 7021-8 #### [facility] CLIA [id number] [address] [place] Nucleated RBC/100 WBC (Bld) [Ratio] 0.0 /100 WBC Normal [facility] Comment on above: Order Comment: Speci men Type: BLOOD SPECIMEN [facility] Address: [address] [address] Performed By: #### 5 7021-8 #### [facility] CLIA [id number] [address] [place] Platelet mean volume (Bld) [Entitic vol] 10.1 fL Normal 9.0-12.7 [facility] Comment on above: Order Comment: Speci men Type: BLOOD SPECIMEN [facility] Address: [address] [address] Performed By: #### 5 7021-8 #### [facility] CLIA [id number] [address] [place] Platelets (Bld) [#/Vol] 311 10*3/uL Normal 150-400 [facility] Comment on above: Order Comment: Speci men Type: BLOOD SPECIMEN [facility] Address: [address] [address] Performed By: #### 5 7021-8 #### [facility] CLIA [id number] [address] [place] RBC (Bld) [#/Vol] 5.11 10*6/uL Normal 4.20-6.00 [facility] Comment on above: Order Comment: Speci men Type: BLOOD SPECIMEN [facility] Address: [address] Performed By: #### 5 7021-8 #### [facility] CLIA [id number] [address] [place] WBC (Bld) [#/Vol] 13.12 10*3/uL High 3.70-11.00 [facility] Comment on above: Order Comment: Speci men Type: BLOOD SPECIMEN [facility] Address: [address] [place] [address] Performed By: #### 5 7021-8 #### [facility] CLIA [id number] 1 [place] [address] [place] CT FLANK WO IVCONon 06-23-20 [facility] metabolic 2000 panelon 06-23-2022 Albumin [Mass/Vol] 4.3 g/dL Normal 3.9-4.9 [facility] Comment on above: Order Comment: Speci men Type: BLOOD SPECIMENOrdering Facility: [facility] Address: [address] [place] [address] Performed By: #### 2 4323-8 ####[facility]IA [id number] [address] [place] ALP [Catalytic activity/Vol] 83 U/L Normal 38-113 [facility] Comment on above: Order Comment: Speci men Type: BLOOD SPECIMENOrdering Facility: [facility] Address: [address] [place] [address] Performed By: #### 2 4323-8 ####[facility]IA [id number] [address] STATES OF [facility] ALT With P-5'-P [Catalytic activity/Vol] 34 U/L Normal 10-54 [facility] Comment on above: Order Comment: Speci men Type: BLOOD SPECIMENOrdering Facility: [facility] Address: [address] [place] [address] Performed By: #### 2 4323-8 ####[facility]CLIA [id number] [address] STATES [facility] Anion gap [Moles/Vol] 10 mmol/L Normal 9-18 [facility] Comment on above: Order Comment: Speci men Type: BLOOD SPECIMENOrdering Facility: [facility] Address: [address] [place] [address] Performed By: #### 2 4323-8 ####[facility] [id number] [address] [place] AST With P-5'-P [Catalytic activity/Vol] 35 U/L Normal 14-40 [facility] Comment on above: Order Comment: Speci men Type: BLOOD SPECIMENOrdering Facility: [facility] Address: [address] [place] [address] Performed By: #### 2 4323-8 ####[facility] [id number] [place] [address] [place] Bilirubin [Mass/Vol] 0.3 mg/dL Normal 0.2-1.3 [facility] Comment on above: Order Comment: Speci men Type: BLOOD SPECIMENOrdering Facility: [facility] Address: [address] [place] [address] Performed By: #### 2 4323-8 ####[facility] [id number] [place] [address] [place] Calcium [Mass/Vol] 9.8 mg/dL Normal 8.5-10.2 [facility] Comment on above: Order Comment: Speci men Type: BLOOD SPECIMENOrdering Facility: [facility] Address: [address] [place] [address] Performed By: #### 2 4323-8 ####[facility] [id number] [place] [address] [place] Chloride [Moles/Vol] 103 mmol/L Normal 97-105 [facility] Comment on above: Order Comment: Speci men Type: BLOOD SPECIMENOrdering Facility: [facility] Address: [address] [place] [address] Performed By: #### 2 4323-8 ####[facility] [id number] [place] [address] [place] CO2 [Moles/Vol] 26 mmol/L Normal 22-30 [facility] Comment on above: Order Comment: Speci men Type: BLOOD SPECIMENOrdering Facility: [facility] Address: [address] [place] [address] Performed By: #### 2 4323-8 ####[facility] [id number] [place] [address] [place] Creatinine [Mass/Vol] 0.87 mg/dL Normal 0.73-1.22 [facility] Comment on above: Order Comment: Fidel landaverde Type: BLOOD SPECIMENOrdering Facility: [facility] Address: [address] [address] Performed By: #### 2 4323-8 ####[facility]ORYCLIA [id number] [address] [address] [id number] [place] ESTIMATED GLOMERULAR FILTRATION RATE 99 mL/min/1.73m??? Normal >=60 [facility] Comment on above: Order Comment: Fidel saima Type: BLOOD SPECIMENOrdering Facility: [facility] Address: [address] [address] Result Comment: Jossie mated Glomerular Filtration Rate (eGFR) is calculated using the 2020 CKD-EPI creatinine equation. This equation utilizes serum creatinine, sex, and age as parameters. The creatinine assay has traceable calibration to isotope dilution-mass spectrometry. Refer to KDIGO guidelines for clinical interpretation. In patients with unstable renal function, e.g. those with acute kidney injury, the eGFR may not accurately reflect actual GFR. Performed By: #### 2 4323-8 ####[facility]ORYIA [id number] [place] [address] [place] Glucose [Mass/Vol] 160 mg/dL High 74-99 [facility] Comment on above: Order Comment: Robynedilberto landaverde Type: BLOOD SPECIMENOrdering Facility: [facility] Address: [address] [address] Result Comment: The [place] Diabetes Association (ADA) provides guidance for cutoff values for fasting glucose and random glucose. The ADA defines fasting as no caloric intake for at least 8 hours. Fasting plasma glucose results between 100 to 125 mg/dL indicate increased risk for diabetes (prediabetes). Fasting plasma glucose results greater than or equal to 126 mg/dL meet the criteria for diagnosis of diabetes. In the absence of unequivocal hyperglycemia, results should be confirmed by repeat testing. In a patient with classic symptoms of hyperglycemia or hyperglycemic crisis, random plasma glucose results greater than or equal to 200 mg/dL meet the criteria for diagnosis of diabetes. Reference: Standards of Medical Care in Diabetes 2016, [place] Diabetes Association. Diabetes Care. 2016.39(Suppl 1). Performed By: #### 2 4323-8 ####[facility]CLIA [id number] [address] STATES [facility] Potassium [Moles/Vol] 4.0 mmol/L Normal 3.7-5.1 [facility] Comment on above: Order Comment: Speci men Type: BLOOD SPECIMENOrdering Facility: [facility] Address: [address] [place] [address] Performed By: #### 2 4323-8 ####[facility]CLIA [id number] [address] STATES OF [facility] Protein [Mass/Vol] 7.1 g/dL Normal 6.3-8.0 [facility] Comment on above: Order Comment: Speci men Type: BLOOD SPECIMENOrdering Facility: [facility] Address: [address] [place] [address] Performed By: #### 2 4323-8 ####[facility]ORYCLIA [id number] [address] Sodium [Moles/Vol] 139 mmol/L Normal 136-144 [facility] Comment on above: Order Comment: Speci men Type: BLOOD SPECIMENOrdering Facility: [facility] Address: [address] [place] [address] Performed By: #### 2 4323-8 ####[facility]ORYCLIA [id number] [address] Urea nitrogen [Mass/Vol] 11 mg/dL Normal 9-24 [facility] Comment on above: Order Comment: Speci men Type: BLOOD SPECIMENOrdering Facility: [facility] Address: [address] [place] [address] Performed By: #### 2 4323-8 ####[facility] [id number] [address] ED Triage Noteon 06-23-2022 ED Triage Note HNO ID: [id number] Author: Everette Weiss PA-C Service: Emergency Medicine Author Type: Physician Insurance Checker Type: ED Triage Notes Filed: 06/23/2022 7:30 PM Note Text: ED INTAKE NOTE Patient Name: Waldo Zee Service Date: 06/23/22 BRIEF HPI: 62-year-old male presents emergency department for kidney stone. Patient had an outpatient CAT scan done yesterday which showed a 9 mm obstructing stone. He was recommended to come into the emergency department for laboratory work and possibly urology consult. He states that his pain is not severe but is the worst he has had for a kidney stone. BRIEF EXAM: Awake and Alert RRR CTAB INTAKE WORKUP: Bloodwork: CBC CMP Urinalysis SIGNATURE: Everette Weiss PA-C Normal [facility] Urinalysis complete panel (U )on 06-23-2022 Bilirubin Ql (U) Negative Normal Negative [facility] Comment on above: Order Comment: Speci men Type: URINE SPECIMEN [facility] Address: [address] [place] [address] Performed By: #### 2 4356-8 #### [facility] CLIA [id number] [address] [place] Clarity (Unsp spec) Clear Normal Clear [facility] Comment on above: Order Comment: Speci men Type: URINE SPECIMEN [facility] Address: [address] [place] [address] Performed By: #### 2 4356-8 #### [facility] CLIA [id number] [address] [place] Color (U) Yellow Normal yellow [facility] Comment on above: Order Comment: Speci men Type: URINE SPECIMEN [facility] Address: [address] [place] [address] Performed By: #### 2 4356-8 #### [facility] CLIA [id number] [address] [place] Glucose Test strip (U) [Mass/Vol] Negative Normal Negative [facility] Comment on above: Order Comment: Speci men Type: URINE SPECIMEN [facility] Address: [address] [place] [address] Performed By: #### 2 4356-8 #### [facility] CLIA [id number] [address] Hemoglobin Ql (U) 2+ Abnormal Negative [facility] Comment on above: Order Comment: Speci men Type: URINE SPECIMEN [facility] Address: [address] [address] Performed By: #### 2 4356-8 #### [facility] CLIA [id number] [address] Ketones Ql (U) Negative Normal Negative [facility] Comment on above: Order Comment: Speci men Type: URINE SPECIMEN [facility] Address: [address] [place] [address] Performed By: #### 2 4356-8 #### [facility] CLIA [id number] [address] Leukocyte esterase Test strip Ql (U) Negative Normal Negative [facility] Comment on above: Order Comment: Speci men Type: URINE SPECIMEN [facility] Address: [address] [address] Performed By: #### 2 4356-8 #### [facility] CLIA [id number] [address] Nitrite Ql (U) Negative Normal Negative [facility] Comment on above: Order Comment: Speci men Type: URINE SPECIMEN [facility] Address: [address] [address] Performed By: #### 2 4356-8 #### [facility] CLIA [id number] [address] pH (U) 5.5 [pH] Normal 5.0-8.0 [facility] Comment on above: Order Comment: Speci men Type: URINE SPECIMEN [facility] Address: [address] [address] Performed By: #### 2 4356-8 #### [facility] CLIA [id number] [address] Protein (U) [Mass/Vol] Trace Abnormal Negative [facility] Comment on above: Order Comment: Speci men Type: URINE SPECIMEN [facility] Address: [address] [place] [address] Performed By: #### 2 4356-8 #### [facility] CLIA [id number] [address] RBC LM.HPF (Urine sed) [#/Area] /[HPF] Abnormal 0-3 /HPF [facility] Comment on above: Order Comment: Speci men Type: URINE SPECIMEN [facility] Address: [address] [place] [address] Performed By: #### 2 4356-8 #### [facility] CLIA [id number] [address] Specific gravity (U) [Rel density] 1.020 Normal 1.005-1.030 [facility] Comment on above: Order Comment: Speci men Type: URINE SPECIMEN [facility] Address: [address] [place] [address] Performed By: #### 2 4356-8 #### [facility] CLIA [id number] [address] Urobilinogen Ql (U) Normal Normal Negative [facility] Comment on above: Order Comment: Speci men Type: URINE SPECIMEN [facility] Address: [address] [place] [address] Performed By: #### 2 4356-8 #### [facility] CLIA [id number] [address] WBC LM.HPF (Urine sed) [#/Area] 0-5 /HPF Normal 0-5 /HPF [facility] Comment on above: Order Comment: Speci men Type: URINE SPECIMEN [facility] Address: [address] [place] [address] Performed By: #### 2 4356-8 #### [facility] CLIA [id number] 1 [place] [address] [place] UA DIP, URINE (POC)on 2021 BILIRUBIN UA (POCT) Negative Negative [facility] CLARITY UA (POCT) Slightly Cloudy Cl [facility] COLOR UA (POCT) Paige [facility] GLUCOSE UA (POCT) Negative Negative mg/dL [facility] HEMOGLOBIN/BLOOD UA (POCT) Large Abnormal Negative [facility] KETONE UA (POCT) Negative Negative mg/dL [facility] LEUKOCYTES UA (POCT) Negative Negative [facility] NITRITE UA (POCT) Negative Negative [facility] PH UA (POCT) 6.5 4.5 - 8.0 [facility] Protein Ql (U) 30 mg/dL Abnormal Negative mg/dL [facility] SPECIFIC GRAVITY UA (POCT) 1.020 1.005 - 1.030 [facility] UROBILINOGEN UA (POCT) 0.2 E.U./dL Normal E.U./dL [facility] XR CHEST 2V FRONTAL/LATon [facility] XR Chest PA and Lateralon IMPRESSION: No acute radiographic abnormality. 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: PSCB Transcribe Date/Time: Jan 20 2022 9:12A Dictated by : CRISTY ABRAMS MD This examination was interpreted and the report reviewed and electronically signed by: CRISTY ABRAMS MD on Jan 20 2022 9:15AM EST ZZZ_DO_NOT_U SE_DIVISION OF RADIOLOGY * * *Final Report* * * DATE OF EXAM: Jan 20 2022 8:52AM WOX [id number] - XR CHEST 2V FRONTAL/LAT / PROCEDURE REASON: Cough * * * * Physician Interpretation * * * * EXAMINATION: CHEST RADIOGRAPH (2 VIEW FRONTAL & LATERAL) CLINICAL HISTORY: Cough MQ: XC2_6 EXAM DATE/TIME: 01/20/2022 8:52 AM COMPARISON: 06/18/2017 RESULT: Lines, tubes, and devices: None. Lungs and pleura: No consolidation. No lung mass. No pleural effusion. No pneumothorax. Cardiomediastinal silhouette: Normal cardiomediastinal silhouette. Bones and soft tissues: Moderate degenerative change and osteophytosis throughout the dorsal spine ZZZ_DO_NOT_U SE_DIVISION OF RADIOLOGY Provider, Nereida post [place] - 01/20/2022 * * *Final Report* * * DATE OF EXAM: Jan 20 2022 8:52AM WOX [id number] - XR CHEST 2V FRONTAL/LAT / PROCEDURE REASON: Cough * * * * Physician Interpretation * * * * EXAMINATION: CHEST RADIOGRAPH (2 VIEW FRONTAL & LATERAL) CLINICAL HISTORY: Cough MQ: XC2_6 EXAM DATE/TIME: 01/20/2022 8:52 AM COMPARISON: 06/18/2017 RESULT: Lines, tubes, and devices: None. Lungs and pleura: No consolidation. No lung mass. No pleural effusion. No pneumothorax. Cardiomediastinal silhouette: Normal cardiomediastinal silhouette. Bones and soft tissues: Moderate degenerative change and osteophytosis throughout the dorsal spine IMPRESSION IMPRESSION: No acute radiographic abnormality. 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: PSCB Transcribe Date/Time: Jan 20 2022 9:12A Dictated by : CRISTY ABRAMS MD This examination was interpreted and the report reviewed and electronically signed by: CRISTY ABRAMS MD on Jan 20 2022 9:15AM EST [facility] Radiology Study observation (narrative) [facility] XR Chest PA and LateralOrder ed By: [facility] Provider on 01-20-2022 [facility] Vital Signs Date Time Vital Sign Value Performing Clinician Mesha pritchard 09-08-2024 08:26-0500 Body mass index (BMI) [Ratio] 37.8 kg/m2 Bettye Powell MD Work Phone: [facility] 09-08-2024 08:26-0500 Body weight 122.92 kg Bettye Powell MD Work Phone: [facility] 09-08-2024 08:26-0500 Diastolic blood pressure 82 mm[Hg] Bettye Powell MD Work Phone: [facility] 09-08-2024 08:26-0500 Heart rate 66 /min Bettye Powell MD Work Phone: [facility] 09-08-2024 08:26-0500 Respiratory rate 16 /min Bettye Powell MD Work Phone: [facility] 09-08-2024 08:26-0500 Systolic blood pressure 128 mm[Hg] Bettye Powell MD Work Phone: [facility] 03-19-2024 09:52-0400 Body mass index (BMI) [Ratio] 34.87 kg/m2 Lizeth Dewey HPLC CHEMIST.S[employer]IOR [employer]OL SYSTEMS ENGINEER Work Phone: [facility] 03-19-2024 09:52-0400 Body temperature 97 [degF] Lizeth Dewey HPLC CHEMIST.SENIOR CONTR[employer] SYSTEMS ENGINEER Work Phone: [facility] 03-19-2024 09:52-0400 Body weight 113.4 kg Lizeth Dewey HPLC CHEMIST.SENIOR CONTROL SYSTEMS ENGINEER Work Phone: [facility] 03-19-2024 09:52-0400 Diastolic blood pressure 84 mm[Hg] Lizeth Dewey HPLC CHEMIST.SENIOR CONTROL SYSTEMS ENGINEER Work Phone: [facility] 03-19-2024 09:52-0400 Heart rate 67 /min Lizeth Dewey HPLC CHEMIST.SENIOR CONTROL SYSTEMS ENGINEER Work Phone: [facility] 03-19-2024 09:52-0400 Respiratory rate 16 /min Lizeth Dewey HPLC CHEMIST.SENIOR CONTROL SYSTEMS ENGINEER Work Phone: [facility] 03-19-2024 09:52-0400 SaO2% (BldA) [Mass fraction] 98 % Lizeth Dewey HPLC CHEMIST.SENIOR CONTROL SYSTEMS ENGINEER Work Phone: [facility] 03-19-2024 09:52-0400 Systolic blood pressure 130 mm[Hg] Lizeth Dewey HPLC CHEMIST.SENIOR CONTROL SYSTEMS ENGINEER Work Phone: [facility] 03-10-2024 09:13-0400 Body height 180.3 cm Bettye Powell MD Work Phone: [facility] 03-10-2024 09:13-0400 Body mass index (BMI) [Ratio] 35.01 kg/m2 Bettye Powell MD Work Phone: [facility] 03-10-2024 09:13-0400 Body weight 113.85 kg Bettye Powell MD Work Phone: [facility] 03-10-2024 09:13-0400 Diastolic blood pressure 80 mm[Hg] Bettye Powell MD Work Phone: [facility] 03-10-2024 09:13-0400 Heart rate 65 /min Bettye Powell MD Work Phone: [facility] 03-10-2024 09:13-0400 Systolic blood pressure 118 mm[Hg] Bettye Powell MD Work Phone: [facility] 09-17-2023 13:23-0500 Body height 180.3 cm Everette Blaz HPLC CHEMIST.SENIOR CONTROL SYSTEMS ENGINEER, DNP Work Phone: [facility] 09-17-2023 13:23-0500 Body weight 113.85 kg Everette Blaz HPLC CHEMIST.SENIOR CONTROL SYSTEMS ENGINEER, DNP Work Phone: [facility] 09-17-2023 13:23-0500 Diastolic blood pressure 91 mm[Hg] Everette Blaz HPLC CHEMIST.SENIOR CONTROL SYSTEMS ENGINEER, DNP Work Phone: [facility] 09-17-2023 13:23-0500 Heart rate 71 /min Everette Blaz HPLC CHEMIST.SENIOR CONTROL SYSTEMS ENGINEER, DNP Work Phone: [facility] 09-17-2023 13:23-0500 Respiratory rate 16 /min Everette Blaz HPLC CHEMIST.SENIOR CONTROL SYSTEMS ENGINEER, DNP Work Phone: [facility] 09-17-2023 13:23-0500 Systolic blood pressure 130 mm[Hg] Everette Blaz HPLC CHEMIST.SENIOR CONTROL SYSTEMS ENGINEER, DNP Work Phone: [facility] 05-04-2023 13:32-0400 Body weight 117.03 kg Amada Older HPLC CHEMIST.SENIOR CONTROL SYSTEMS ENGINEER Work Phone: [facility] 05-04-2023 13:32-0400 Diastolic blood pressure 78 mm[Hg] Amada Older HPLC CHEMIST.SENIOR CONTROL SYSTEMS ENGINEER Work Phone: [facility] 05-04-2023 13:32-0400 Heart rate 80 /min Amada Older HPLC CHEMIST.SENIOR CONTROL SYSTEMS ENGINEER Work Phone: [facility] 05-04-2023 13:32-0400 Respiratory rate 16 /min Amada Older HPLC CHEMIST.SENIOR CONTROL SYSTEMS ENGINEER Work Phone: [facility] 05-04-2023 13:32-0400 SaO2% (BldA) [Mass fraction] 97 % Amada Older HPLC CHEMIST.SENIOR CONTROL SYSTEMS ENGINEER Work Phone: [facility] 05-04-2023 13:32-0400 Systolic blood pressure 130 mm[Hg] Amada Older HPLC CHEMIST.SENIOR CONTROL SYSTEMS ENGINEER Work Phone: [facility] 12-14-2022 09:33-0400 Diastolic blood pressure 88 mm[Hg] Bettye Powell MD Work Phone: [facility] 12-14-2022 09:33-0400 Systolic blood pressure 132 mm[Hg] Bettye Powell MD Work Phone: [facility] 12-14-2022 08:37-0400 Body temperature 97.2 [degF] Bettye Powell MD Work Phone: [facility] 12-14-2022 08:37-0400 Body weight 119.75 kg Bettye Powell MD Work Phone: [facility] 12-14-2022 08:37-0400 Heart rate 86 /min Bettye Powell MD Work Phone: [facility] 12-14-2022 08:37-0400 Respiratory rate 16 /min Bettye Powell MD Work Phone: [facility] 12-14-2022 08:37-0400 SaO2% (BldA) [Mass fraction] 98 % Bettye Powell MD Work Phone: [facility] 08-22-2022 08:01-0500 Body height 180.3 cm Pedro Ponce PA-C Work Phone: [facility] 08-22-2022 08:01-0500 Body temperature 97.3 [degF] Pedro Ponce PA-C Work Phone: [facility] 08-22-2022 08:01-0500 Body weight 121.11 kg Pedro Ponce PA-C Work Phone: [facility] 08-22-2022 08:01-0500 Diastolic blood pressure 90 mm[Hg] Pedro Ponce PA-C Work Phone: [facility] 08-22-2022 08:01-0500 Heart rate 82 /min Pedro Ponce PA-C Work Phone: [facility] 08-22-2022 08:01-0500 Respiratory rate 14 /min Pedro Ponce PA-C Work Phone: [facility] 08-22-2022 08:01-0500 SaO2% (BldA) [Mass fraction] 98 % Pedro Ponce PA-C Work Phone: [facility] 08-22-2022 08:01-0500 Systolic blood pressure 138 mm[Hg] Pedro Ponce PA-C Work Phone: [facility] 06-26-2022 16:15-0500 Body height 180.3 cm Chacho Donis MD Work Phone: [facility] 06-26-2022 16:15-0500 Body weight 118.3 kg Chacho Donis MD Work Phone: [facility] 06-26-2022 16:15-0500 Diastolic blood pressure 93 mm[Hg] Chacho Donis MD Work Phone: [facility] 06-26-2022 16:15-0500 Heart rate 71 /min Chacho Donis MD Work Phone: [facility] 06-26-2022 16:15-0500 Systolic blood pressure 140 mm[Hg] Chacho Donis MD Work Phone: [facility] [facility]22 08:59-0500 Diastolic blood pressure 96 mm[Hg] Bettye Powell MD Work Phone: [facility] 06-22-2022 08:59-0500 Systolic blood pressure 144 mm[Hg] Bettye Powell MD Work Phone: [facility] 06-22-2022 08:06-0500 Body temperature 97 [degF] Bettye Powell MD Work Phone: [facility] 06-22-2022 08:06-0500 Body weight 119.39 kg Bettye Powell MD Work Phone: [facility] 06-22-2022 08:06-0500 Heart rate 78 /min Bettye Powell MD Work Phone: [facility] 06-22-2022 08:06-0500 Respiratory rate 16 /min Bettye Powell MD Work Phone: [facility] 06-22-2022 08:06-0500 SaO2% (BldA) [Mass fraction] 99 % Bettye Powell MD Work Phone: [facility] 01-20-2022 08:10-0400 Body height 177.8 cm Bettye Powell MD Work Phone: [facility] 01-20-2022 08:10-0400 Body weight 117.03 kg Bettye Powell MD Work Phone: [facility] 01-20-2022 08:10-0400 Diastolic blood pressure 78 mm[Hg] Bettye Powell MD Work Phone: [facility] 01-20-2022 08:10-0400 Heart rate 82 /min Bettye Powell MD Work Phone: [facility] 01-20-2022 08:10-0400 Respiratory rate 16 /min Bettye Powell MD Work Phone: [facility] 01-20-2022 08:10-0400 SaO2% (BldA) [Mass fraction] 97 % Bettye Powell MD Work Phone: [facility] 01-20-2022 08:10-0400 Systolic blood pressure 128 mm[Hg] Bettye Powell MD Work Phone: [facility] 01-05-2022 13:46-0400 Body temperature 96.49 [degF] Don Salgado MD Work Phone: [facility] 01-05-2022 13:46-0400 Body weight 117.48 kg Don Salgado MD Work Phone: [facility] 01-05-2022 13:46-0400 Diastolic blood pressure 82 mm[Hg] Don Salgado MD Work Phone: [facility] 01-05-2022 13:46-0400 Heart rate 76 /min Don Salgado MD Work Phone: [facility] 01-05-2022 13:46-0400 Respiratory rate 16 /min Don Salgado MD Work Phone: [facility] 01-05-2022 13:46-0400 Systolic blood pressure 130 mm[Hg] Don Salgado MD Work Phone: [facility] Encounters Encounter Date Encounter Type Care Provider Facility Start: 09-26-2024 End: 09-29-2024 Refill Bettye Powell MD Work Phone: [facility] [place] Comment on above: Refill Request Start: 09-08-2024 End: 09-08-2024 ambulatory BETTYE POWELL Facility:[facility] Start: 09-08-2024 End: 09-08-2024 Office outpatient visit 25 minutes Bettye Powell MD Work Phone: [facility] [place] Comment on above: Type 2 diabetes emily itus without complication, without long- term current use of insulin (HCC) (Primary Dx); Coronary artery disease involving [place] coronary artery of [place] heart without angina pectoris; BMI 39.0-39.9,adult; Vitamin B12 deficiency Start: 05-10-2024 End: 05-15-2024 Refill Emma Cardoza MD Work Phone: [facility] [place] Comment on above: Refill Request Start: 03-20-2024 Telephone encounter Lizeth hanna APRN.CNP Work Phone: [facility] [place] Comment on above: Results Start: 03-19-2024 End: 03-19-2024 ambulatory LIZETH BRADFORD Facility:[facility] Start: 03-19-2024 End: 03-19-2024 Patient encounter procedure Lizeth Bradford APRN.CNP Work Phone: [facility] [place] Comment on above: Pain of left calf (P rimary Dx); Edema of left lower extremity Start: 03-18-2024 End: 03-18-2024 ambulatory Bettye Powell Facility[place] Start: 03-10-2024 End: 03-10-2024 Office outpatient visit 15 minutes Bettye Powell MD Work Phone: [facility] [place] Comment on above: Annual physical exam (Primary Dx); Encounter for immunization; Mixed hyperlipidemia; Morbid obesity (HCC); Type 2 diabetes mellitus without complication, without long-term current use of insulin (HCC); Rectal cancer (HCC); Seborrheic keratosis Start: 03-10-2024 End: 03-10-2024 ambulatory BETTYE POWELL Facility:[facility] Start: 03-10-2024 End: 03-10-2024 Patient encounter procedure Bettye Powell MD Work Phone: [facility] Start: 03-08-2024 End: 03-08-2024 ambulatory BERNARD MARLEY Facility:[facility] Start: 02-26-2024 ambulatory Bettye Honeycutt Work Phone: Internal Medicine [place] [id number] Start: 01-02-2024 End: 01-02-2024 Emergency department patient visit Bettye Powell Facility:[facility] Start: 11-26-2023 Refill Bettye Honeycutt Work Phone: [facility] [place] Comment on above: Refill Request Start: 10-02-2023 Telephone encounter Everette bridges HPLC CHEMIST.SENIOR CONTROL SYSTEMS ENGINEER, DNP Work Phone: Urology Comment on above: Results; Appointment Results Start: 10-01-2023 End: 10-01-2023 ambulatory EVERETTE CROSS Facility:[facility] Start: 10-01-2023 End: 10-01-2023 Subsequent hospital visit by physician Lavonne [facility] (I-Stat) Work Phone: Cat Scan Comment on above: Gross hematuria [R31 .0] Start: 09-28-2023 End: 09-28-2023 ambulatory EVERETTE CROSS Facility:[facility] Start: 09-17-2023 End: 09-17-2023 ambulatory EVERETTE CROSS Facility:[facility] Start: 09-17-2023 End: 09-17-2023 Office outpatient visit 15 minutes Everette Cross HPLC CHEMIST.SENIOR CONTROL SYSTEMS ENGINEER, DNP Work Phone: Urology Comment on above: Gross hematuria (Mariela steven Dx); History of kidney stones Start: 09-11-2023 End: 09-11-2023 ambulatory BETTYE POWELL Facility:[facility] Start: 08-23-2023 End: 06-17-2024 Telephone encounter Regla Cárdenas PA-C Work Phone: General Surgery Comment on above: 08/31/2023 COLON/EGD [facility] Start: 06-27-2023 Telephone encounter Bettye farfan MD Work Phone: [facility] [place] Comment on above: vaccine question Start: 05-28-2023 Telephone encounter Ambar Foy Work Phone: Podiatry Comment on above: Patient Question Foot Arch Support Or ders Start: 05-04-2023 End: 05-04-2023 Patient encounter procedure Amada Muro APRN.CNP Work Phone: [facility] [place] Comment on above: Type 2 diabetes emily itus without complication, without long- term current use of insulin (HCC) (Primary Dx); Burning sensation of feet; Primary hypertension; Coronary artery disease involving [place] coronary artery of [place] heart without angina pectoris; Mixed hyperlipidemia Start: 01-30-2023 Telephone encounter Bettye farfan MD Work Phone: [facility] [place] Comment on above: Diarrhea Start: 01-15-2023 Refill Bettye Honeycutt Work Phone: [facility] [place] Comment on above: Refill Request Start: 12-14-2022 End: 12-14-2022 Patient encounter procedure Bettye Powell MD Work Phone: [facility] [place] Comment on above: Acute bilateral low back pain without sciatica (Primary Dx); Type 2 diabetes mellitus without complication, without long-term current use of insulin (HCC); Coronary artery disease involving [place] coronary artery of [place] heart without angina pectoris; Mixed hyperlipidemia Start: 12-11-2022 Refill Bettye Honeycutt Work Phone: [facility] Comment on above: Refill Request Start: 08-22-2022 End: 08-22-2022 Patient encounter procedure Pedro Ponce PA-C Work Phone: Urology Comment on above: Kidney stones (Prima ry Dx) Start: 07-13-2022 Patient encounter procedure [facility] Provider [facility] Department Start: 07-12-2022 Telephone encounter Raymundo Gallegos MD Work Phone: Urology Comment on above: Appointment Start: 07-11-2022 End: 07-11-2022 ambulatory RAYMUNDO GALLEGOS Facility:[facility] Start: 06-29-2022 Telephone encounter Leonor Rodriguez Urology Comment on above: Patient Update Start: 06-28-2022 Telephone encounter Raymundo Gallegos MD Work Phone: [facility] Comment on above: Surgery Scheduled Start: 06-27-2022 ambulatory Karin Nava RN Urology Start: 06-27-2022 Telephone encounter Aviva Cornelius MD Work Phone: [place] [facility] Comment on above: Opened In Error Patient Update; Appo intment Start: 06-26-2022 End: 06-26-2022 Patient encounter procedure Chacho Donis MD Work Phone: Urology Comment on above: Kidney stones (Prima ry Dx); Ureteric stone Start: 06-26-2022 ambulatory Janelle Isbell RN NURSE TOYS INSPECTOR Comment on above: Information Start: 06-24-2022 Telephone encounter Aviva Cornelius MD Work Phone: Urology Comment on above: 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 Developer - 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 Start: 06-24-2022 End: 06-24-2022 Emergency department patient visit BETTYE POWELL Facility:[facility] Start: 06-23-2022 End: 06-23-2022 Subsequent hospital visit by physician Ct [facility] (I-Stat) Work Phone: Cat Scan Comment on above: Gross hematuria [R31 .0] Start: 06-23-2022 Telephone encounter Amada Muro APRN.CNP Work Phone: [facility] [place] Comment on above: Results Start: 06-22-2022 End: 06-22-2022 Patient encounter procedure Bettye Powell MD Work Phone: [facility] [place] Comment on above: Gross hematuria (Mariela steven Dx); Mixed hyperlipidemia; Coronary artery disease involving [place] coronary artery of [place] heart without angina pectoris; Calculus of other lower urinary tract location; Type 2 diabetes mellitus without complication, without long-term current use of insulin (HCC); Chronic bilateral back pain, unspecified back location Start: 06-21-2022 ambulatory Bettye Honeycutt Work Phone: [facility] [place] Comment on above: Possible kidney infe ction or kidney stone Start: 06-21-2022 Telephone encounter Bettye farfan MD Work Phone: [facility] [place] Comment on above: Kidney Problem Start: 02-01-2022 Refill Bettye Honeycutt Work Phone: [facility] [place] Comment on above: Refill Request Start: 01-23-2022 Refill Bettye Honeycutt Work Phone: [facility] [place] Comment on above: Refill Request Start: 01-20-2022 End: 01-20-2022 Subsequent hospital visit by physician Xr [facility] [place] Work Phone: Radiology Comment on above: Cough [R05.9] Start: 01-20-2022 End: 01-20-2022 Patient encounter procedure Bettye Powell MD Work Phone: [facility] [place] Comment on above: Cough (Primary Dx); Bronchitis Start: 01-16-2022 Telephone encounter Bettye farfan MD Work Phone: [facility] [place] Comment on above: Patient Update Start: 01-05-2022 End: 01-05-2022 Patient encounter procedure Don Salgado MD Work Phone: [facility] [place] Comment on above: Otalgia of both ears (Primary Dx); Dysfunction of Eustachian tube, unspecified laterality; Type 2 diabetes mellitus without complication, without long-term current use of insulin (HCC) Start: 12-30-2021 Refill Bettye Honeycutt Work Phone: [facility] [place] Comment on above: Refill Request Start: 12-26-2021 Telephone encounter Bettye farfan MD Work Phone: [facility] [place] Comment on above: Patient Request Start: 12-24-2021 ambulatory Bettye Honeycutt Work Phone: [facility] [place] Comment on above: Cough Start: 12-09-2021 ambulatory Bettye Honeycutt Work Phone: [facility] [place] Comment on above: tetnus shot Start: 11-24-2021 Telephone encounter Amada Muro APRN.CNP Work Phone: [facility] [place] Comment on above: Results Start: 05-29-2017 End: 06-02-2020 Patient encounter procedure Bettye Powell MD Work Phone: [facility] Start: 07-07-2014 Patient encounter status Amada ayala APRN.CNP Work Phone: [facility] Work Phone: Procedures Date Procedure Procedure Detail Performing Clinician Start: 10-01-2023 Ct abdomen & pelvis w/o contrst 1/> body re Everette Cross APRN.CNP, DNP Work Phone: Start: 09-17-2023 Urnls dip stick/tabl et rgnt auto w/o microscopy Everette Cross APRN.CNP, DNP Work Phone: Start: 08-31-2023 Colonoscopy Everette bridges APRN.CNP, DNP Work Phone: Start: 12-14-2022 Urnls dip stick/tabl et rgnt auto w/o microscopy Bettye Powell MD Work Phone: Start: 08-22-2022 Urnls dip stick/tabl et rgnt auto w/o microscopy Pedro Ponce PA-C Work Phone: Start: 06-23-2022 Ct abdomen & pelvis w/o contrast material Bettye Powell MD Work Phone: Start: 06-22-2022 Urnls dip stick/tabl et rgnt auto w/o microscopy Bettye Powell MD Work Phone: Start: 01-20-2022 Radiologic exam ches t 2 views Bettye Powell MD Work Phone: Start: 02-08-2021 Adult depression scr eening assessment Amada Older HPLC CHEMIST.SENIOR CONTROL SYSTEMS ENGINEER Work Phone: Start: 07-02-2020 Colonoscopy Amada Older HPLC CHEMIST.SENIOR CONTROL SYSTEMS ENGINEER Work Phone: Plan of Treatment Date Care Activity Detail Author Start: 08-03-2033 Urine microalbumin profile DTaP,Tdap,Td Vaccine (6 - Td or Tdap) [facility] Start: 08-31-2026 Screening for malign ant neoplasm of colon [facility] Start: 09-16-2025 Glaucoma screening Dilated Retinal E xam [facility] Start: 09-08-2025 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 azck Disease Visit Annual PCP Team Chronic Disease Visit [facility] Start: 09-08-2025 Diabetic foot examination Diabetic Foot Exam [facility] Start: 09-08-2025 RSV Vaccine (1 - Ris k 60-74 years 1-dose series) RSV Vaccine (1 - Risk 60-74 years 1-dose series) [facility] Comment on above: Postponed from 05/07 (Declined at this time) Start: 09-08-2025 Shingrix Vaccine (1 of 2) Shingrix Vaccine (1 of 2) [facility] Comment on above: Postponed from 05/07 (Declined at this time) Start: 03-19-2025 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 zack Disease Visit Annual PCP Team Chronic Disease Visit [facility] Start: 03-10-2025 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 zack Disease Visit Annual PCP Team Chronic Disease Visit [facility] Start: 03-10-2025 Pneumococcal vaccination Pneumococcal Vaccine (2 of 2 - PCV) [facility] Start: 03-10-2025 Pneumococcal Vaccine : 50+ (2 of 2 - PCV) Pneumococcal Vaccine: 50+ (2 of 2 - PCV) [facility] Start: 03-10-2025 End: 03-10-2025 Patient encounter procedure 03/10/2025 8:40 AM EDT Office Visit [facility] [place] [address] [place], [place] [id number] Bettye Powell MD [address] [place] [address] 6 month followup [facility] [place] Comment on above: 6 month followup Start: 03-08-2025 Hepatitis B surface antibody level LDL Cholesterol [facility] Start: 02-09-2025 Influenza vaccination Influenza Vacc ine (#1) [facility] Comment on above: Postponed from 04/13 (Declined at this time) Start: 12-24-2024 Urine microalbumin profile [facility] Start: 09-08-2024 End: 12-08-2024 Cobalamin (Vitamin B12) [Mass/volume] in Serum or Plasma VITAMIN B12 Lab Routine Vitamin B12 deficiency Expected: 09/08/2024, Expires: 12/08/2024 [facility] Comment on above: Expected: 09/08/2024 , Expires: 12/08/2024 Start: 09-08-2024 Hemoglobin A1c measurement HbA1C [facility] Start: 09-08-2024 End: 12-08-2024 Microalbumin/Creatinine [Mass Ratio] in Urine ALBUMIN/CREATININE RATIO, URINE Lab Routine Type 2 diabetes mellitus without complication, without long-term current use of insulin (HCC) Expected: 09/08/2024, Expires: 12/08/2024 [facility] Comment on above: Expected: 09/08/2024 , Expires: 12/08/2024 Start: 09-08-2024 End: 09-08-2024 Patient encounter procedure 09/08/2024 8:40 AM EST Office Visit [facility] [place] [address] [place], [place] [id number] Bettye Powell MD [address] [place] [address] 6 mo follow up [facility] [place] Comment on above: 6 mo follow up Start: 08-03-2024 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 zack Disease Visit Annual PCP Team Chronic Disease Visit [facility] Start: 05-04-2024 3 comp foot exam completed Diabetic Foot Exam [facility] Start: 05-04-2024 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 zack Disease Visit Annual PCP Team Chronic Disease Visit [facility] Start: 05-04-2024 Diabetic foot examination Diabetic Foot Exam [facility] Start: 05-04-2024 Hepatitis B screening Urine Al bumin:Creatinine Ratio [facility] Start: 05-04-2024 Hepatitis B Vaccine (1 of 3 - Risk 3-dose series) Hepatitis B Vaccine (1 of 3 - Risk 3-dose series) [facility] Comment on above: Postponed from 05/07 (Declined at this time) Start: 05-04-2024 HIV Screening HIV Screening [facility] Comment on above: Postponed from 05/07 (Declined at this time) Start: 05-04-2024 HIV screening HIV Screening [facility] Comment on above: Postponed from 05/07 (Declined at this time) Start: 05-04-2024 Prostate Cancer Screening Discussion Prostate Cancer Screening Discussion [facility] Comment on above: Postponed from 06/14 (Declined at this time) Start: 05-04-2024 Prostate specific antigen measurement Prostate Cancer Screening Discussion [facility] Comment on above: Postponed from 06/14 (Declined at this time) Start: 05-03-2024 Hepatitis B surface antibody level LDL Cholesterol [facility] Start: 04-13-2024 Influenza vaccination C [facility] Start: 03-10-2024 End: 03-10-2024 Patient encounter procedure 03/10/2024 9:20 AM EDT Office Visit [facility] [place] [address] [place] [address] Bettye Powell MD [address] [place] [address] 6 mth f/u [facility] [place] Comment on above: 6 mth f/u Start: 02-26-2024 End: 05-27-2024 CBC panel - Blood by Automated count COMPLETE BLOOD COUNT Lab Routine Type 2 diabetes mellitus without complication, without long-term current use of insulin (HCC) Expected: 02/26/2024, Expires: 05/27/2024 [facility] Comment on above: Expected: 02/26/2024 , Expires: 05/27/2024 Start: 02-26-2024 End: 05-27-2024 Thyrotropin [Units/volume] in Serum or Plasma THYROID STIMULATING HORMONE Lab Routine Medication management Expected: 02/26/2024, Expires: 05/27/2024 [facility] Work Phone: Comment on above: Expected: 02/26/2024 , Expires: 05/27/2024 Start: 02-10-2024 Influenza vaccination Influenza Vacc ine (#1) [facility] Comment on above: Postponed from 04/13 (Declined at this time) Start: 02-02-2024 Hemoglobin A1c measurement HbA1C [facility] Start: 12-15-2023 ANNUAL 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 TEAM 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 ZACK DISEASE VISIT ANNUAL PCP TEAM CHRONIC DISEASE VISIT [facility] Start: 11-01-2023 Hemoglobin A1c/Hemoglobin.total in Blood HbA1C [facility] Start: 10-02-2023 End: 01-01-2024 Urinalysis complete panel - Urine URINALYSIS WITH MICROSCOPIC, REFLEX CULTURE Lab Routine Kidney stones Abnormal urinalysis Expected: 10/02/2023, Expires: 01/01/2024 [facility] Work Phone: Comment on above: Expected: 10/02/2023 , Expires: 01/01/2024 Start: 09-24-2023 End: 10-16-2024 Ct abdomen & pelvis w/o contrst 1/> body re CT UROGRAM WO/W IVCON Radiology Routine Gross hematuria Expected: 09/24/2023, Expires: 10/16/2024 [facility] Work Phone: Comment on above: Expected: 09/24/2023 , Expires: 10/16/2024 Start: 09-17-2023 End: 12-17-2023 CREATININE BLD CREATININE BLD Lab Routine Gross hematuria Expected: 09/17/2023, Expires: 12/17/2023 [facility] Work Phone: Comment on above: Expected: 09/17/2023 , Expires: 12/17/2023 Start: 09-17-2023 End: 12-17-2023 Urinalysis complete panel - Urine URINALYSIS WITH MICROSCOPIC, REFLEX CULTURE Lab Routine Gross hematuria History of kidney stones Expected: 09/17/2023, Expires: 12/17/2023 [facility] Work Phone: Comment on above: Expected: 09/17/2023 , Expires: 12/17/2023 Start: 09-14-2023 Glaucoma screening Dilated Retinal E xam [facility] Start: 09-14-2023 Hepatitis C antibody , confirmatory test DILATED RETINAL EXAM [facility] Start: 08-13-2023 Behavioral Health Screening Behavioral Health Screening [facility] Start: 08-13-2023 Depression Assessment Depression Ass essment [facility] Start: 07-25-2023 End: 09-24-2023 Basic metabolic 2000 panel - Serum or Plasma BASIC METABOLIC PNL Lab Routine Coronary artery disease involving [place] coronary artery of [place] heart without angina pectoris Expected: 07/25/2023 (Approximate), Expires: 09/24/2023 [facility] Work Phone: Comment on above: Expected: 07/25/2023 (Approximate), Expires: 09/24/2023 Start: 07-25-2023 End: 09-24-2023 CBC panel - Blood by Automated count CBC Lab Routine Coronary artery disease involving [place] coronary artery of [place] heart without angina pectoris Expected: 07/25/2023 (Approximate), Expires: 09/24/2023 [facility] Work Phone: Comment on above: Expected: 07/25/2023 (Approximate), Expires: 09/24/2023 Start: 07-25-2023 End: 09-24-2023 Hemoglobin A1c in Blood HGB A1C Lab Routine Type 2 diabetes mellitus without complication, without long-term current use of insulin (HCC) Expected: 07/25/2023 (Approximate), Expires: 09/24/2023 [facility] Work Phone: Comment on above: Expected: 07/25/2023 (Approximate), Expires: 09/24/2023 Start: 07-25-2023 End: 09-24-2023 Lipid 1996 panel - Serum or Plasma LIPID PANEL BASIC Lab Routine Mixed hyperlipidemia Expected: 07/25/2023 (Approximate), Expires: 09/24/2023 [facility] Work Phone: Comment on above: Expected: 07/25/2023 (Approximate), Expires: 09/24/2023 Start: 07-02-2023 Colonoscopy COLONOSCOPY [facility] Start: 07-02-2023 COLORECTAL CANCER SCREENING COLORECTAL CANCER SCREENING [facility] Start: 06-22-2023 ANNUAL PCP TEAM 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 ZACK DISEASE VISIT ANNUAL PCP TEAM CHRONIC DISEASE VISIT [facility] Start: 06-22-2023 COVID-19 VACCINE (#1) COVID-19 VACCI NE (#1) [facility] Comment on above: Postponed from 11/04 (Declined at this time) Start: 06-22-2023 PNEUMOCOCCAL (2 - PCV) PNEUMOCOCCAL (2 - PCV) [facility] Comment on above: Postponed from 02/14 (Declined at this time) Start: 06-22-2023 Pneumococcal vaccination Pneumococcal Vaccine (2 - PCV) [facility] Comment on above: Postponed from 02/14 (Declined at this time) Start: 06-22-2023 SHINGRIX VACCINE (1 of 2) SHINGRIX VACCINE (1 of 2) [facility] Comment on above: Postponed from 05/07 (Declined at this time) Start: 04-13-2023 Influenza vaccination INFLUENZA (Sea son Ended) [facility] Start: 02-09-2023 Influenza vaccination INFLUENZA (#1) [facility] Comment on above: Postponed from 04/13 (Declined at this time) Start: 01-20-2023 ANNUAL PCP TEAM 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 ZACK DISEASE VISIT ANNUAL PCP TEAM CHRONIC DISEASE VISIT [facility] Start: 01-05-2023 ANNUAL PCP TEAM 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 ZACK DISEASE VISIT ANNUAL PCP TEAM CHRONIC DISEASE VISIT [facility] Start: 11-23-2022 Hepatitis B surface antibody level LDL CHOLESTEROL [facility] Start: 08-30-2022 Hepatitis C antibody , confirmatory test DILATED RETINAL EXAM [facility] Start: 08-13-2022 DEPRESSION ASSESSMENT DEPRESSION ASS ESSMENT [facility] Start: 08-04-2022 End: 10-04-2022 Bacteria identified in Urine by Culture URINE CULTURE Microbiology Routine Nephrolithiasis Expected: 08/04/2022, Expires: 10/04/2022 [facility] Work Phone: Comment on above: Expected: 08/04/2022 , Expires: 10/04/2022 Start: 08-04-2022 End: 10-04-2022 Basic metabolic 2000 panel - Serum or Plasma BASIC METABOLIC PNL Lab Routine Nephrolithiasis Expected: 08/04/2022, Expires: 10/04/2022 [facility] Work Phone: Comment on above: Expected: 08/04/2022 , Expires: 10/04/2022 Start: 08-04-2022 End: 10-04-2022 CBC W Auto Differential panel - Blood CBC + DIFF Lab Routine Nephrolithiasis Expected: 08/04/2022, Expires: 10/04/2022 [facility] Work Phone: Comment on above: Expected: 08/04/2022 , Expires: 10/04/2022 Start: 08-04-2022 End: 10-04-2022 Urinalysis complete panel - Urine URINALYSIS, WITH MICROSCOPIC Lab Routine Nephrolithiasis Expected: 08/04/2022, Expires: 10/04/2022 [facility] Work Phone: Comment on above: Expected: 08/04/2022 , Expires: 10/04/2022 Start: 07-29-2022 ANNUAL PCP TEAM 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 ZACK DISEASE VISIT ANNUAL PCP TEAM CHRONIC DISEASE VISIT [facility] Start: 05-25-2022 Hemoglobin A1c/Hemoglobin.total in Blood HBA1C [facility] Start: 2022 RSV Vaccine (1 - 1-d ose 60+ series) RSV Vaccine (1 - 1-dose 60+ series) [facility] Start: 2022 RSV Vaccine (1 - Ris k 60-74 years 1-dose series) RSV Vaccine (1 - Risk 60-74 years 1-dose series) [facility] Start: 04-13-2022 Influenza vaccination INFLUENZA (Sea son Ended) [facility] Start: 02-08-2022 Adult depression screening assessment DEPRESSION SCREENING [facility] Start: 06-14-2020 PROSTATE CANCER SCREENING DISCUSSION PROSTATE CANCER SCREENING DISCUSSION [facility] Start: 06-14-2020 Prostate specific antigen measurement Prostate Cancer Screening Discussion [facility] Start: 05-26-2020 3 comp foot exam completed DIABETIC FOOT EXAM [facility] Start: 05-24-2020 Hepatitis B screening URINE AL BUMIN:CREATININE RATIO [facility] Start: 02-14-2017 PNEUMOCOCCAL (2 - PCV) PNEUMOCOCCAL (2 - PCV) [facility] Start: 02-14-2017 Pneumococcal vaccination [facility] Start: 05-06-2015 FECAL OCCULT BLOOD FECAL OCCULT BLOO D [facility] Start: 05-06-2015 Screening for malign ant neoplasm of colon Fecal Occult Blood [facility] Start: 2012 SHINGRIX VACCINE (1 of 2) SHINGRIX VACCINE (1 of 2) [facility] Start: 2007 COLOGUARD (FIT-DNA) COLOGUARD (FIT-D NA) [facility] Start: [address] COLONOGRAPHY [facility] Start: 2007 Screening for malign ant neoplasm of colon [facility] Start: 2007 SIGMOIDOSCOPY SIGMOIDOSCOPY [facility] Start: 1981 HEPATITIS B (1 of 3 - Risk 3-dose series) HEPATITIS B (1 of 3 - Risk 3-dose series) [facility] Start: 1981 SHINGRIX VACCINE (1 of 2) SHINGRIX VACCINE (1 of 2) [facility] Start: 1980 Anxiety Screening Anxiety Screening [facility] Start: 1980 Depression Screening Depression Scre ening [facility] Start: 1980 HIV SCREENING HIV SCREENING [facility] Start: 1980 HIV screening HIV Screening [facility] Start: 1967 COVID-19 VACCINE (#1) COVID-19 VACCI NE (#1) [facility] Start: 1967 COVID-19 VACCINE (1) COVID-19 VACCIN E (1) [facility] Start: 1962 Covid-19 Vaccine (#1) Covid-19 Vacci ne (#1) [facility] End: 06-22-2023 CBC panel - Blood by Automated count CBC Lab Routine Type 2 diabetes mellitus without complication, without long-term current use of insulin (HCC) Every 6 months for 12 Occurrences starting 06/22/2022 until 06/22/2023 [facility] Work Phone: Comment on above: Every 6 months for 1 2 Occurrences starting 06/22/2022 until 06/22/2023 End: 09-08-2025 CBC panel - Blood by Automated count COMPLETE BLOOD COUNT Lab Routine Type 2 diabetes mellitus without complication, without long-term current use of insulin (HCC) Every 6 months for 12 Occurrences starting 09/08/2024 until 09/08/2025 [facility] Comment on above: Every 6 months for 1 2 Occurrences starting 09/08/2024 until 09/08/2025 End: 06-22-2023 Comprehensive metabolic 2000 panel - Serum or Plasma COMP METABOLIC PANEL Lab Routine Type 2 diabetes mellitus without complication, without long-term current use of insulin (HCC) Every 6 months for 12 Occurrences starting 06/22/2022 until 06/22/2023 [facility] Work Phone: Comment on above: Every 6 months for 1 2 Occurrences starting 06/22/2022 until 06/22/2023 End: 09-08-2025 Comprehensive metabolic 2000 panel - Serum or Plasma COMPREHENSIVE METABOLIC PANEL Lab Routine Type 2 diabetes mellitus without complication, without long-term current use of insulin (HCC) Every 6 months for 12 Occurrences starting 09/08/2024 until 09/08/2025 [facility] Comment on above: Every 6 months for 1 2 Occurrences starting 09/08/2024 until 09/08/2025 End: 07-22-2023 Ct abdomen & pelvis w/o contrast material CT FLANK WO IVCON Radiology RIMMA Gross hematuria Calculus of other lower urinary tract location 1 Occurrences starting 06/22/2022 until 07/22/2023 [facility] Work Phone: Comment on above: 1 Occurrences starti ng 06/22/2022 until 07/22/2023 End: 06-22-2023 Hemoglobin A1c in Blood HGB A1C Lab Routine Type 2 diabetes mellitus without complication, without long-term current use of insulin (HCC) Every 3 months for 24 Occurrences starting 06/22/2022 until 06/22/2023 [facility] Work Phone: Comment on above: Every 3 months for 2 4 Occurrences starting 06/22/2022 until 06/22/2023 End: 09-08-2025 Hemoglobin A1c in Blood HEMOGLOBIN A1C Lab Routine Type 2 diabetes mellitus without complication, without long-term current use of insulin (HCC) Every 3 months for 24 Occurrences starting 09/08/2024 until 09/08/2025 [facility] Work Phone: Comment on above: Every 3 months for 2 4 Occurrences starting 09/08/2024 until 09/08/2025 End: 06-22-2023 Lipid 1996 panel - Serum or Plasma LIPID PANEL BASIC Lab Routine Type 2 diabetes mellitus without complication, without long-term current use of insulin (HCC) Every 6 months for 12 Occurrences starting 06/22/2022 until 06/22/2023 [facility] Work Phone: Comment on above: Every 6 months for 1 2 Occurrences starting 06/22/2022 until 06/22/2023 End: 09-08-2025 Lipid 1996 panel - Serum or Plasma LIPID PANEL BASIC Lab Routine Type 2 diabetes mellitus without complication, without long-term current use of insulin (HCC) Every 6 months for 12 Occurrences starting 09/08/2024 until 09/08/2025 [facility] Comment on above: Every 6 months for 1 2 Occurrences starting 09/08/2024 until 09/08/2025 End: 02-19-2023 LUNG VOLUMES LUNG VOLUMES PFT Routine Cough 1 Occurrences starting 01/20/2022 until 02/19/2023 [facility] Work Phone: Comment on above: 1 Occurrences starti ng 01/20/2022 until 02/19/2023 End: 02-19-2023 METHACHOLINE CHALLENGE METHACHOLINE CHALLENGE PFT Routine Cough Bronchitis 1 Occurrences starting 01/20/2022 until 02/19/2023 [facility] Work Phone: Comment on above: 1 Occurrences starti ng 01/20/2022 until 02/19/2023 POST VOID RESIDUAL POST VOID RES IDUAL Procedures Routine Kidney stones Ordered: 08/22/2022 [facility] Work Phone: Comment on above: Ordered: 08/22/2022 End: 02-19-2023 SPIROMETRY - BASELINE AND POST DILATOR SPIROMETRY - BASELINE AND POST DILATOR PFT Routine Cough 1 Occurrences starting 01/20/2022 until 02/19/2023 [facility] Work Phone: Comment on above: 1 Occurrences starti ng 01/20/2022 until 02/19/2023 Tdap vaccine 7 yrs/> im TDAP VAC CINE, AGE 7+ YR (ADACEL, BOOSTRIX) Immunization/Injection Routine Need for vaccination Ordered: 06/27/2023 [facility] Work Phone: Comment on above: Ordered: 06/27/2023 End: 06-22-2023 Thyrotropin [Units/volume] in Serum or Plasma TSH BLD Lab Routine Type 2 diabetes mellitus without complication, without long-term current use of insulin (HCC) Every 3 months for 24 Occurrences starting 06/22/2022 until 06/22/2023 [facility] Work Phone: Comment on above: Every 3 months for 2 4 Occurrences starting 06/22/2022 until 06/22/2023 End: 09-08-2025 Thyrotropin [Units/volume] in Serum or Plasma THYROID STIMULATING HORMONE Lab Routine Type 2 diabetes mellitus without complication, without long-term current use of insulin (HCC) Every 3 months for 24 Occurrences starting 09/08/2024 until 09/08/2025 [facility] Comment on above: Every 3 months for 2 4 Occurrences starting 09/08/2024 until 09/08/2025 US Lower extremity vein US LEG V EIN DVT UNL VAS LAB Vascular Lab STAT Pain of left calf Edema of left lower extremity 03/19/2024 10:54 AM EDT [facility] Work Phone: [facility] Immunizations Immunization Date Immunization Notes Care Provider Alicia peters 03-10-2024 pneumococcal polysaccharide vaccine, 23 valent Bettye Powell MD Work Phone: [facility] 08-03-2023 tetanus toxoid, redu kristina diphtheria toxoid, and acellular pertussis vaccine, adsorbed Everette Cross HPLC CHEMIST.S[employer]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 ENGINEER, DNP Work Phone: [facility] 08-08-2016 influenza virus vacc ine, unspecified formulation Amada Older HPLC CHEMIST.[facility] Work Phone: [facility] 02-15-2016 pneumococcal polysaccharide vaccine, 23 valent Amada Older HPLC CHEMIST.[facility] Work Phone: [facility] Work Phone: 12-24-2014 diphtheria and tetan us toxoids, adsorbed for pediatric use Amada Older HPLC CHEMIST.[facility] Work Phone: [facility] Work Phone: 12-24-2014 tetanus and diphther ia toxoids, adsorbed, preservative free, for adult use (5 Lf of tetanus toxoid and 2 Lf of diphtheria toxoid) Amada Older HPLC CHEMIST.[facility] Work Phone: [facility] 09-14-2006 tetanus toxoid, redu kristina diphtheria toxoid, and acellular pertussis vaccine, adsorbed Amada Older HPLC CHEMIST.[facility] Work Phone: [facility] Work Phone: 04-30-1996 diphtheria and tetan us toxoids, adsorbed for pediatric use Amada Older HPLC CHEMIST.[facility] Work Phone: [facility] Work Phone: Payers Date Payer Category Payer Private Health Insurance MMO SUP ERMED O [id number] 2024 Unknown [id number] 2024 Self-pay 2019 Unknown JALIL VÁSQUEZ PPO [id number] 2019-Present [phone] [address] [place] [address] PPO [id number] 2019 Unknown [id number] 2019 Unknown [id number] Unknown [id number] Unknown [id number] Social History Date Type Detail Facility Start: 11-22-2018 End: 09-17-2023 Tobacco smoking status NHIS Ex-smoker [facility] Work Phone: End: 02-16-1988 History of tobacco use Current smoker [facility] Work Phone: End: 02-16-1988 History of tobacco use Cigar Smoker [facility] Work Phone: Start: 07-29-2021 End: 01-20-2022 Alcohol intake Current drinker of alcohol (finding) [facility] Start: 02-08-2021 History SDOH Alcohol Frequency 98 [facility] Start: 07-02-2020 History SDOH Alcohol Comment bourbon every two to three weeks [facility] Start: 02-08-2021 History SDOH Housing Homeless Last Year 3 [facility] Start: 11-22-2018 End: 06-22-2022 Tobacco Comment Pt will have an occassional cigar.- done with cigars [facility] Start: 1960 Sex Assigned At Not on file [facility] Start: 12-26-2021 End: 07-11-2022 Exposure to SARS-CoV-2 (event) Not sure [facility] Work Phone: Start: 11-22-2018 End: 09-17-2023 Tobacco use and exposure Smokeless tobacco non-user [facility] Work Phone: Start: 02-08-2021 End: 09-03-2022 History of Social function [facility] Start: 02-08-2021 End: 09-03-2022 Social connection and isolation panel [facility] In a typical week, how many times do you talk on the telephone with family, friends, or neighbors? Patient refused [facility] Are you now , , , , never or living with a partner? Refused [facility] (I/We) worried whether (my/our) food would run out before (I/we) got money to buy more. DK or Refused [facility] Start: 09-17-2023 End: 09-08-2024 Alcohol intake Ex-drinker (finding) [facility] Has the [employer], gas, oil, or water [employer] threatened to shut off services in your home in past 12Mo No [facility] Are you now , , , , never or living with a partner? [facility] How often to you hav e a drink containing alcohol? 2-3 time sa week [facility] How many standard drinks containing alcohol do you have on a typical day? 1 or 2 [facility] How often do you hav e 6 or more drinks on 1 occasion? Never [facility] Do you feel stress - tense, restless, nervous, or anxious, or unable to sleep at night because your mind is troubled all the time - these days [OSQ] Not at all [facility] (I/We) worried whether (my/our) food would run out before (I/we) got money to buy more. Never true [facility] NEGATED: Highlighted rowStart: NINF History of tobacco use Passive smoker [facility] Medical Equipment Procedure Code Equipment Code Equipment Origin al Text Equipment Identifier Dates Mesh Soft Prolen e [id number] Cm - [id number] Start: 06-26-2018 Functional Status Date Assessment Result Facility 06-30-2018 Are you deaf, or do you have serious difficulty hearing No 06/30/2018 11:26 AM Candy Tran APRN.SENIOR CONTROL SYSTEMS ENGINEER No [facility] Work Phone: 06-30-2018 Are you blind, or do you have serious difficulty seeing, even when wearing glasses No 06/30/2018 11:26 AM Candy Tran APRN.CNP No [facility] 06-30-2018 Do you have difficul ty dressing or bathing No 06/30/2018 11:26 AM Candy Tran APRN.CNP No [facility] 06-30-2018 Because of a physica l, mental, or emotional condition, do you have difficulty doing errands alone such as visiting a physician's office or shopping No 06/30/2018 11:26 AM Candy Tran APRN.CNP No [facility] 11-07-2017 Do you have serious difficulty walking or climbing stairs No 11/07/2017 3:51 PM EDT Promise Rubio (Rn), RN No [facility] Mental Status Date Assessment Result Facility 06-30-2018 Because of a physica l, mental, or emotional condition, do you have serious difficulty concentrating, remembering, or making decisions No 06/30/2018 11:26 AM Candy Tran APRN.ALANIS No [facility] Clinical Notes 06-26-2018 to 09-26-2024 Telephone Encounter - Candy Sarah RN - 09/26/2024 4:38 PM ESTTelephone Encounter - Candy Sarah RN - 09/26/2024 4:38 PM Bettye Nieto MD - 09/08/2024 8:17 AM ESTPatient Instructions Note Date & Type Note Facility 09-26-2024 Telephone encounter Note The patient has been identified by name and date of : Yes Caregiver verified no other encounters exist for this prescription request: Yes Caregiver confirmed with patient/requestor that no other refills are due, in the near future, with this provider at this time: Yes The last office visit in the department: 09/08/2024 Does the patient have a future office visit with this provider/department: Yes 03/10/2025 Requested Prescriptions Pending Prescriptions Disp Refills levothyroxine (LEVOXYL) 50 mcg tablet 90 tablet 1 Sig: Take 1 tablet by mouth once daily. Take on empty stomach. For Thyroid metFORMIN (GLUCOPHAGE) 500 mg tablet 180 tablet 1 Sig: Take 2 pills with breakfast and 1 pill with dinner metoprolol tartrate, short acting, (LOPRESSOR) 25 mg tablet 90 tablet 1 Sig: Takes half of pill twice daily pantoprazole DR (PROTONIX) 40 mg tablet 90 tablet 1 Sig: Take 1 tablet by mouth once daily. ergocalciferol 50,000 unit capsule (VITAMIN D2, DRISDOL) 12 capsule 1 Sig: Take 1 capsule by mouth one time a week. Candy Sarah RN September 26, 2024 4:40 PM [facility] 09-26-2024 Miscellaneous Notes The patient has been identified by name and date of : Yes Caregiver verified no other encounters exist for this prescription request: Yes Caregiver confirmed with patient/requestor that no other refills are due, in the near future, with this provider at this time: Yes The last office visit in the department: 09/08/2024 Does the patient have a future office visit with this provider/department: Yes 03/10/2025 Requested Prescriptions Pending Prescriptions Disp Refills levothyroxine (LEVOXYL) 50 mcg tablet 90 tablet 1 Sig: Take 1 tablet by mouth once daily. Take on empty stomach. For Thyroid metFORMIN (GLUCOPHAGE) 500 mg tablet 180 tablet 1 Sig: Take 2 pills with breakfast and 1 pill with dinner metoprolol tartrate, short acting, (LOPRESSOR) 25 mg tablet 90 tablet 1 Sig: Takes half of pill twice daily pantoprazole DR (PROTONIX) 40 mg tablet 90 tablet 1 Sig: Take 1 tablet by mouth once daily. ergocalciferol 50,000 unit capsule (VITAMIN D2, DRISDOL) 12 capsule 1 Sig: Take 1 capsule by mouth one time a week. Candy Sarah RN September 26, 2024 4:40 PM documented in this encounter [facility] 09-08-2024 Note HNO ID: [id number] Author: BETTYE POWELL MD Service: ? Author Type: Physician Type: Progress Notes Filed: 09/08/2024 11:04 Note Text: Reason for Visit Patient presents with: Follow Up Waldo Zee is a 63 year old male who presents here today for CPE. 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 Chronic conditions are fairly well-controlled but he does like to eat sweet food and was complaining of neuropathy which slowly got better with him changing the time when he eats his sugary foods. He has been watching his sweets, he loves sweets. Reviewed his lipid labs and all of them are normal. He still has trouble with cholesterols but he does not want to take cholesterol medication. He is exercising by walking, getting around 4/5 thousand steps a day. He has a large garden and he carries water in the garden. Carrying pounds of stuff for it. Diet: he is eating a lot of vegetables, and fruits, chocolate, is his weakness. Drinks around 2 times a week. His weight has remained stable. He has been to see an freight broker recently. He has been to see Michelle schreiber recently. Had a colonoscopy recently, good for 5 years 09/08/2024: We do not have hba1c and other labs today. Bp is good. He does not check sugars on a regular basis. Patient notes that he is not doing near as much he should to be careful with his diet in the holidays. Takes all his chronic medication No problem-specific Assessment AND Plan notes found for this encounter. PAST MEDICAL HISTORY Diagnosis Date Coronary artery disease Diabetes (HCC) Esophageal reflux Fibromyalgia Glaucoma Hypertension Kidney stone Kidney stones 2022 Non-STEMI (non-ST elevated myocardial infarction) (HCC) 10/24/2018 Other and unspecified hyperlipidemia Rectal cancer (HCC) Diagnostic laparoscopy, open low anterior rectal and sigmoid resection, mobilization of splenic flexure, flexible sigmoidoscopy, diverting loop ileostomy 07/2017 Thyroid disease PAST SURGICAL HISTORY Procedure Laterality Date ABDOMINAL SURGERY HX CARDIAC CATH 10/24/2018 [facility] with stent placement COLON SURGERY HX COLONOSCOPY FLX DX W/COLLJ SPEC WHEN PFRMD 06/13/2017 Colonoscopy COLONOSCOPY FLX DX W/COLLJ SPEC WHEN PFRMD 05/29/2018 Colonoscopy COLONOSCOPY FLX DX W/COLLJ SPEC WHEN PFRMD 06/26/2019 Colonoscopy COLONOSCOPY FLX DX W/COLLJ SPEC WHEN PFRMD 07/02/2020 Colonoscopy ESOPHAGOGASTRODUODENOSCOPY TRANSORAL DIAGNOSTIC EGD HERNIA REPAIR HX 2018 incisional LITHOLINK CKD PROGRAM 07/11/2022 PAST SURGICAL HISTORY OF 07/2017 Diagnostic laparoscopy, open low anterior rectal and sigmoid resection, mobilization of splenic flexure, flexible sigmoidoscopy, diverting loop ileostomy PAST SURGICAL HISTORY OF 11/05/2017 ileostomy reversal PSA (EXTERNAL) 06/14/2015 normal (0.76) WC REMOVAL OF KIDNEY STONE 2022 FAMILY HISTORY Adopted: Yes Problem Relation Age of Onset Hypertension Mother other (auto immune hepatitis) Mother other (unknown) Father Diabetes Maternal Grandmother None Maternal Grandfather other (unknown) Paternal Grandmother other (unknown) Paternal Grandfather None Daughter other (Other) Sister blood clot 1/2 sister other (hormone issues) Daughter Social History Tobacco Use Smoking status: Former Types: Cigars Passive exposure: Never Smokeless tobacco: Never Tobacco comments: Pt will have an occassional cigar.- done with cigars Vaping Use Vaping status: Never Used Substance Use Topics Alcohol use: Not Currently Comment: bourbon every two to three weeks Drug use: No Past medical history, appointments, medications, allergies reviewed. Pertinent Lab/Diagnostic Studies are reviewed and discussed today Current Outpatient Medications: levothyroxine (LEVOXYL) 50 mcg tablet metFORMIN (GLUCOPHAGE) 500 mg tablet metoprolol tartrate, short acting, (LOPRESSOR) 25 mg tablet ergocalciferol 50,000 unit capsule (VITAMIN D2, DRISDOL) pantoprazole DR (PROTONIX) 40 mg tablet losartan (COZAAR) 25 mg tablet nitroglycerin sublingual (NITROQUICK) 0.4 mg SL tablet COMPOUNDED PRESCRIPTION aspirin 81 mg chewable tablet multivitamin tablet cetirizine (ZYRTEC) 10 mg tablet acetaminophen (TYLENOL) 500 mg tablet latanoprost (XALATAN) 0.005 % ophthalmic solution tamsulosin (FLOMAX) 0.4 mg Review of Systems CONSTITUTIONAL: No fevers, chills, nightsweats, unintended weight loss HEENT: Denies frequent or severe heaches, nasal congestion/sinus symptoms, (more content not included)... [facility] 09-08-2024 History of Present illness Narrative Reason for Visit Patient presents with: Follow Up Waldo Zee is a 63 year old male who presents here today for CPE. 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 Chronic conditions are fairly well-controlled but he does like to eat sweet food and was complaining of neuropathy which slowly got better with him changing the time when he eats his sugary foods. He has been watching his sweets, he loves sweets. Reviewed his lipid labs and all of them are normal. He still has trouble with cholesterols but he does not want to take cholesterol medication. He is exercising by walking, getting around 4/5 thousand steps a day. He has a large garden and he carries water in the garden. Carrying pounds of stuff for it. Diet: he is eating a lot of vegetables, and fruits, chocolate, is his weakness. Drinks around 2 times a week. His weight has remained stable. He has been to see an freight broker recently. He has been to see Michelle schreiber recently. Had a colonoscopy recently, good for 5 years 09/08/2024: We do not have hba1c and other labs today. Bp is good. He does not check sugars on a regular basis. Patient notes that he is not doing near as much he should to be careful with his diet in the holidays. Takes all his chronic medication No problem-specific Assessment & Plan notes found for this encounter. PAST MEDICAL HISTORY Diagnosis Date Coronary artery disease Diabetes (HCC) Esophageal reflux Fibromyalgia Glaucoma Hypertension Kidney stone Kidney stones 2022 Non-STEMI (non-ST elevated myocardial infarction) (HCC) 10/24/2018 Other and unspecified hyperlipidemia Rectal cancer (HCC) Diagnostic laparoscopy, open low anterior rectal and sigmoid resection, mobilization of splenic flexure, flexible sigmoidoscopy, diverting loop ileostomy 07/2017 Thyroid disease PAST SURGICAL HISTORY Procedure Laterality Date ABDOMINAL SURGERY HX CARDIAC CATH 10/24/2018 [facility] with stent placement COLON SURGERY HX COLONOSCOPY FLX DX W/COLLJ SPEC WHEN PFRMD 06/13/2017 Colonoscopy COLONOSCOPY FLX DX W/COLLJ SPEC WHEN PFRMD 05/29/2018 Colonoscopy COLONOSCOPY FLX DX W/COLLJ SPEC WHEN PFRMD 06/26/2019 Colonoscopy COLONOSCOPY FLX DX W/COLLJ SPEC WHEN PFRMD 07/02/2020 Colonoscopy ESOPHAGOGASTRODUODENOSCOPY TRANSORAL DIAGNOSTIC EGD HERNIA REPAIR HX 2018 incisional LITHOLINK CKD PROGRAM 07/11/2022 PAST SURGICAL HISTORY OF 07/2017 Diagnostic laparoscopy, open low anterior rectal and sigmoid resection, mobilization of splenic flexure, flexible sigmoidoscopy, diverting loop ileostomy PAST SURGICAL HISTORY OF 11/05/2017 ileostomy reversal PSA (EXTERNAL) 06/14/2015 normal (0.76) [facility] REMOVAL OF KIDNEY STONE 2022 FAMILY HISTORY Adopted: Yes Problem Relation Age of Onset Hypertension Mother other (auto immune hepatitis) Mother other (unknown) Father Diabetes Maternal Grandmother None Maternal Grandfather other (unknown) Paternal Grandmother other (unknown) Paternal Grandfather None Daughter other (Other) Sister blood clot 1/2 sister other (hormone issues) Daughter Social History Tobacco Use Smoking status: Former Types: Cigars Passive exposure: Never Smokeless tobacco: Never Tobacco comments: Pt will have an occassional cigar.- done with cigars Vaping Use Vaping status: Never Used Substance Use Topics Alcohol use: Not Currently Comment: bourbon every two to three weeks Drug use: No Past medical history, appointments, medications, allergies reviewed. Pertinent Lab/Diagnostic Studies are reviewed and discussed today Current Outpatient Medications: levothyroxine (LEVOXYL) 50 mcg tablet metFORMIN (GLUCOPHAGE) 500 mg tablet metoprolol tartrate, short acting, (LOPRESSOR) 25 mg tablet ergocalciferol 50,000 unit capsule (VITAMIN D2, DRISDOL) pantoprazole DR (PROTONIX) 40 mg tablet losartan (COZAAR) 25 mg tablet nitroglycerin sublingual (NITROQUICK) 0.4 mg SL tablet COMPOUNDED PRESCRIPTION aspirin 81 mg chewable tablet multivitamin tablet cetirizine (ZYRTEC) 10 mg tablet acetaminophen (TYLENOL) 500 mg tablet latanoprost (XALATAN) 0.005 % ophthalmic solution tamsulosin (FLOMAX) 0.4 mg Review of Systems CONSTITUTIONAL: No fevers, chills, nightsweats, unintended weight loss HEENT: Denies frequent or severe heaches, nasal congestion/sinus symptoms, problematic allergy problems. EYES: No diplopia or blurry vision. CARDIOVASCULAR: No chest pain, dyspnea, palpitations, orthopnea, PND, ankle edema. PULM: No dyspnea, unexplained cough. GI: No dysphagia/odynophagia, problematic reflux, constipation, diarrhea, changes in stool habits, hematochezia, melena. : No new urinary complaints, including dysuria, gross hematuria or pyuria. NEURO: No new balance problems, peripheral weakness/paresthesias or numbness of concern. MUSC-SKEL: No new joint pain, swelling, or erythema. PSY: No concerns regarding depression, anxiety or panic. INTEGUMENTARY: No new skin changes (rash, new or changing mole, new growth) Physical Exam BP 128/82 Pulse 66 Resp 16 Wt 122.9 kg (271 lb) BMI 37.80 kg/m General appearance: Well appearing, alert, in no acute distress, well-hydrated, well nourished. Skin: a few Seborrheic Keratosis on the back., no concerning lesions Head: Normocephalic, no masses, lesions, tenderness or abnormalities Eyes: Anicteric sclera. Pupils are equally round and reactive to light. Extraocular movements are intact. Ears: External ears normal, canals clear Neck: Supple, no adenopathy; thyroid symmetric, normal size, no bruits Back: Normal exam Lungs: Lungs clear to auscultation. No wheezing, rhonchi, rales Heart: RRR without murmur, gallop, or rubs. No ectopy Feet: Shoes and socks removed, No deformities, ulcers, calluses, normal distal pulses, and sensitive to 10 gm monofilament ASSESSMENT/PLAN: 1. Type 2 diabetes mellitus without complication, without long-term current use of insulin ([facility]) - ICD9: 250.00, ICD10: E11.9 (primary diagnosis) Will await test results to discuss further. - HEMOGLOBIN A1C - COMPREHENSIVE METABOLIC PANEL - COMPLETE BLOOD COUNT - THYROID STIMULATING HORMONE - LIPID PANEL BASIC - ALBUMIN/CREATININE RATIO, URINE 2. Coronary artery disease involving [place] coronary artery of [place] heart without angina pectoris - ICD9: 414.01, ICD10: I25.10 Stable, no chest pain or SOB 3. BMI 39.0-39.9,adult - ICD9: V85.39, ICD10: Z68.39 Advised to cont efforts with exercising and eating well 4. Vitamin B12 deficiency - ICD9: 266.2, ICD10: E53.8 - VITAMIN B12 Bettye Powell MD documented in this encounter [facility] 05-15-2024 Telephone encounter Note Spoke with pt and he did get it thru his operating room coordinator. Pt was instructed to keep this on hand incase he needs it. It has been while since he ordered. Kept what he had on hand and then could no longer ready the label on the bottle and requested a refill. No need to fill here at this time. Lea Hamilton LPN [facility] 05-15-2024 Miscellaneous Notes Spoke with pt and he did get it thru his operating room coordinator. Pt was instructed to keep this on hand incase he needs it. It has been while since he ordered. Kept what he had on hand and then could no longer ready the label on the bottle and requested a refill. No need to fill here at this time. Lea Hamilton LPN This has not been refilled by us in over 3 years. Has he been getting this through a different provider? Has something changed and he is needing again? Thank you Amada Muro APRN.ALANIS NOV 09/08/24 [facility] 03/10/24 Patient electronically sent a request for the following prescription(s) Requested Prescriptions Pending Prescriptions Disp Refills nitroglycerin sublingual (NITROQUICK) 0.4 mg SL tablet 25 tablet 1 Sig: Dissolve 1 tablet under the tongue every 5 minutes as needed for chest pain. Patient aware RX will be sent to pharmacy. No need to notify patient. Please review. Marie Mcelroy MA documented in this encounter [facility] 05-12-2024 Telephone encounter Note Prescription Refill Information The patient has been identified by name and date of : Yes Caregiver verified no other encounters exist for this prescription request: Yes Caregiver confirmed with patient/requestor that no other refills are due, in the near future, with this provider at this time: Yes The last office visit in the department: 03/19/24 Does the patient have a future office visit with this provider/department: Yes 09/08/24 Requested Prescriptions Pending Prescriptions Disp Refills levothyroxine (LEVOXYL) 50 mcg tablet 90 tablet 1 Sig: Take 1 tablet by mouth once daily. Take on empty stomach. For Thyroid metFORMIN (GLUCOPHAGE) 500 mg tablet 180 tablet 1 Sig: Take 2 pills with breakfast and 1 pill with dinner metoprolol tartrate, short acting, (LOPRESSOR) 25 mg tablet 90 tablet 1 Sig: Takes half of pill twice daily ergocalciferol 50,000 unit capsule (VITAMIN D2, DRISDOL) 12 capsule 1 Sig: Take 1 capsule by mouth one time a week. pantoprazole DR (PROTONIX) 40 mg tablet 90 tablet 1 Sig: Take 1 tablet by mouth once daily. Mayra Quintero LPN May 12, 2024 2:44 PM [facility] 05-12-2024 Miscellaneous Notes Prescription Refill Information The patient has been identified by name and date of : Yes Caregiver verified no other encounters exist for this prescription request: Yes Caregiver confirmed with patient/requestor that no other refills are due, in the near future, with this provider at this time: Yes The last office visit in the department: 03/19/24 Does the patient have a future office visit with this provider/department: Yes 09/08/24 Requested Prescriptions Pending Prescriptions Disp Refills levothyroxine (LEVOXYL) 50 mcg tablet 90 tablet 1 Sig: Take 1 tablet by mouth once daily. Take on empty stomach. For Thyroid metFORMIN (GLUCOPHAGE) 500 mg tablet 180 tablet 1 Sig: Take 2 pills with breakfast and 1 pill with dinner metoprolol tartrate, short acting, (LOPRESSOR) 25 mg tablet 90 tablet 1 Sig: Takes half of pill twice daily ergocalciferol 50,000 unit capsule (VITAMIN D2, DRISDOL) 12 capsule 1 Sig: Take 1 capsule by mouth one time a week. pantoprazole DR (PROTONIX) 40 mg tablet 90 tablet 1 Sig: Take 1 tablet by mouth once daily. Mayra Quintero LPN May 12, 2024 2:44 PM Please call patient or send a Mychart message when all requested Rx's are sent to the pharmacy. TY documented in this encounter [facility] 05-12-2024 Telephone encounter Note Please call patient or send a Mychart message when all requested Rx's are sent to the pharmacy. TY [facility] 05-12-2024 Telephone encounter Note This has not been refilled by us in over 3 years. Has he been getting this through a different provider? Has something changed and he is needing again? Thank you Amada Muro APRN.ALANIS [facility] Work Phone: 05-12-2024 Telephone encounter Note NOV 09/08/24 [facility] 03/10/24 Patient electronically sent a request for the following prescription(s) Requested Prescriptions Pending Prescriptions Disp Refills nitroglycerin sublingual (NITROQUICK) 0.4 mg SL tablet 25 tablet 1 Sig: Dissolve 1 tablet under the tongue every 5 minutes as needed for chest pain. Patient aware RX will be sent to pharmacy. No need to notify patient. Please review. aMrie Mcelroy MA [facility] 03-20-2024 Telephone encounter Note Phoned patient and went over results, notes from Lizeth Bradford NP with understanding. [facility] 03-20-2024 Miscellaneous Notes Phoned patient and went over results, notes from Lizeth Bradford NP with understanding. ----- Message from Lizeth Bradford APRN.CNP sent at 03/19/2024 5:08 PM EDT ----- Please let the patient know as of right now the preliminary result of the ultrasound is negative for blood clots. I will contact him on My Chart once the final has resulted Lizeth Bradford APRN.CNP documented in this encounter [facility] 03-20-2024 Telephone encounter Note ----- Message from Lizeth Bradford APRN.CNP sent at 03/19/2024 5:08 PM EDT ----- Please let the patient know as of right now the preliminary result of the ultrasound is negative for blood clots. I will contact him on My Chart once the final has resulted Lizeth Bradford APRN.CNP [facility] 03-19-2024 Note HNO ID: [id number] Author: LIZETH BRADFORD APRN.SENIOR CONTROL SYSTEMS ENGINEER Service: ? Author Type: Nurse Practitioner Type: Progress Notes Filed: 03/19/2024 10:39 Note Text: CC: Patient presents with: left lower leg swelling/pain x 24 hours HPI Waldo Zee is a 63 year old male who presents today for above. Edema: unilateral - left lower leg x 1 day Reports: discomfort described as a muscle ache, multiple varicose veins of the left leg Denies: chest pain, shortness of breath, post nocturnal dyspnea, hemoptysis, orthopnea, weight gain, other areas of swelling/pain PMH: History of hypercoagulability in family member, CAD, colon/rectal cancer (7 years ago) Recent falls/injury: No Recent long plane/car trips: No Water intake: adequate Salt intake: does not monitor Elevating legs: no Prolonged sitting or standing: no Treatments: none Review of Systems Constitutional: Negative for chills, diaphoresis, fatigue and fever. Respiratory: Negative for cough and wheezing. Skin: Negative for color change. PAST MEDICAL HISTORY No date: Coronary artery disease No date: Diabetes (HCC) No date: Esophageal reflux No date: Fibromyalgia No date: Glaucoma No date: Hypertension No date: Kidney stone 2022: Kidney stones 10/24/2018: Non-STEMI (non-ST elevated myocardial infarction) (HCC) No date: Other and unspecified hyperlipidemia No date: Rectal cancer (HCC) Comment: Diagnostic laparoscopy, open low anterior rectal and sigmoid resection, mobilization of splenic flexure, flexible sigmoidoscopy, diverting loop ileostomy 07/2017 No date: Thyroid disease PAST SURGICAL HISTORY No date: ABDOMINAL SURGERY HX 10/24/2018: CARDIAC CATH Comment: [facility] with stent placement No date: COLON SURGERY HX 06/13/2017: COLONOSCOPY FLX DX W/COLLJ SPEC WHEN PFRMD Comment: Colonoscopy 05/29/2018: COLONOSCOPY FLX DX W/COLLJ SPEC WHEN PFRMD Comment: Colonoscopy 06/26/2019: COLONOSCOPY FLX DX W/COLLJ SPEC WHEN PFRMD Comment: Colonoscopy 07/02/2020: COLONOSCOPY FLX DX W/COLLJ SPEC WHEN PFRMD Comment: Colonoscopy No date: ESOPHAGOGASTRODUODENOSCOPY TRANSORAL DIAGNOSTIC Comment: EGD 2018: HERNIA REPAIR HX Comment: incisional 07/11/2022: [facility] CKD PROGRAM 07/2017: PAST SURGICAL HISTORY OF Comment: Diagnostic laparoscopy, open low anterior rectal and sigmoid resection, mobilization of splenic flexure, flexible sigmoidoscopy, diverting loop ileostomy 11/05/2017: PAST SURGICAL HISTORY OF Comment: ileostomy reversal 06/14/2015: PSA (EXTERNAL) Comment: normal (0.76) [facility] 2022: REMOVAL OF KIDNEY STONE ALLERGIES Atorvastatin, Dust Mites, and Rosuvastatin MEDICATIONS levothyroxine (LEVOXYL) 50 mcg tablet Take 1 tablet by mouth once daily. Take on empty stomach. For Thyroid metFORMIN (GLUCOPHAGE) 500 mg tablet Take 2 pills with breakfast and 1 pill with dinner tamsulosin (FLOMAX) 0.4 mg Take 1 capsule by mouth daily at bedtime. metoprolol tartrate, short acting, (LOPRESSOR) 25 mg tablet Takes half of pill twice daily losartan (COZAAR) 25 mg tablet Take 1 tablet by mouth once daily. (Patient taking differently: Take 50 mg by mouth once daily. [facility]) ergocalciferol 50,000 unit capsule (VITAMIN D2, DRISDOL) Take 1 capsule by mouth one time a week. pantoprazole DR (PROTONIX) 40 mg tablet Take 1 tablet by mouth once daily. lactulose (ENULOSE) 10 gram/15 mL solution Take 30 mL by mouth twice daily. nitroglycerin sublingual (NITROQUICK) 0.4 mg SL tablet Dissolve 1 tablet under the tongue every 5 minutes as needed for Chest Pain. COMPOUNDED PRESCRIPTION Diabetic arch supports Dx: E11.9 M72.2 aspirin 81 mg chewable tablet Take 1 tablet by mouth once daily. multivitamin tablet Take 1 tablet by mouth once daily. cetirizine (ZYRTEC) 10 mg tablet Take 10 mg by mouth once daily as needed for cold/allergy symptoms. acetaminophen (TYLENOL) 500 mg tablet Take 500 mg by mouth every 8 hours as needed. latanoprost (XALATAN) 0.005 % ophthalmic solution Use 1 Drop in both eyes daily at bedtime. FAMILY HISTORY Adopted: Yes Problem Relation Age of Onset Hypertension Mother other (auto immune hepatitis) Mother other (unknown) Father Diabetes Maternal Grandmother None Maternal Grandfather other (unknown) Paternal Grandmother other (unknown) Paternal Grandfather None Daughter other (Other) Sister blood clot 1/2 sister other (hormone issues) Daughter Social History Tobacco Use Smoking status: Former Types: Cigars Passive exposure: Never Smokeless tobacco: Never Tobacco comments: Pt will have an occassional cigar.- done with cigars Vaping Use Vaping Use: Never used Substance Use Topics Alcohol use: Not Currently Comment: bourbon every two to three weeks Drug use: No BP 130/84 Pulse 67 Temp 36.1 ?C (97 ?F) (Temporal) Resp 16 Wt 113.4 kg (250 lb) SpO2 98% BMI 34.87 kg/m? Physical Exam Vitals reviewed. Constitutional: Appeara (more content not included)... [facility] 03-19-2024 History of Present illness Narrative CC: Patient presents with: left lower leg swelling/pain x 24 hours HPI Waldo Zee is a 63 year old male who presents today for above. Edema: unilateral - left lower leg x 1 day Reports: discomfort described as a muscle ache, multiple varicose veins of the left leg Denies: chest pain, shortness of breath, post nocturnal dyspnea, hemoptysis, orthopnea, weight gain, other areas of swelling/pain PMH: History of hypercoagulability in family member, CAD, colon/rectal cancer (7 years ago) Recent falls/injury: No Recent long plane/car trips: No Water intake: adequate Salt intake: does not monitor Elevating legs: no Prolonged sitting or standing: no Treatments: none Review of Systems Constitutional: Negative for chills, diaphoresis, fatigue and fever. Respiratory: Negative for cough and wheezing. Skin: Negative for color change. PAST MEDICAL HISTORY No date: Coronary artery disease No date: Diabetes (HCC) No date: Esophageal reflux No date: Fibromyalgia No date: Glaucoma No date: Hypertension No date: Kidney stone 2022: Kidney stones 10/24/2018: Non-STEMI (non-ST elevated myocardial infarction) (HCC) No date: Other and unspecified hyperlipidemia No date: Rectal cancer (HCC) Comment: Diagnostic laparoscopy, open low anterior rectal and sigmoid resection, mobilization of splenic flexure, flexible sigmoidoscopy, diverting loop ileostomy 07/2017 No date: Thyroid disease PAST SURGICAL HISTORY No date: ABDOMINAL SURGERY HX 10/24/2018: CARDIAC CATH Comment: [facility] with stent placement No date: COLON SURGERY HX 06/13/2017: COLONOSCOPY FLX DX W/COLLJ SPEC WHEN PFRMD Comment: Colonoscopy 05/29/2018: COLONOSCOPY FLX DX W/COLLJ SPEC WHEN PFRMD Comment: Colonoscopy 06/26/2019: COLONOSCOPY FLX DX W/COLLJ SPEC WHEN PFRMD Comment: Colonoscopy 07/02/2020: COLONOSCOPY FLX DX W/COLLJ SPEC WHEN PFRMD Comment: Colonoscopy No date: ESOPHAGOGASTRODUODENOSCOPY TRANSORAL DIAGNOSTIC Comment: EGD 2018: HERNIA REPAIR HX Comment: incisional 07/11/2022: [facility]INK CKD PROGRAM 07/2017: PAST SURGICAL HISTORY OF Comment: Diagnostic laparoscopy, open low anterior rectal and sigmoid resection, mobilization of splenic flexure, flexible sigmoidoscopy, diverting loop ileostomy 11/05/2017: PAST SURGICAL HISTORY OF Comment: ileostomy reversal 06/14/2015: PSA (EXTERNAL) Comment: normal (0.76) [facility] 2022: REMOVAL OF KIDNEY STONE ALLERGIES Atorvastatin, Dust Mites, and Rosuvastatin MEDICATIONS levothyroxine (LEVOXYL) 50 mcg tablet Take 1 tablet by mouth once daily. Take on empty stomach. For Thyroid metFORMIN (GLUCOPHAGE) 500 mg tablet Take 2 pills with breakfast and 1 pill with dinner tamsulosin (FLOMAX) 0.4 mg Take 1 capsule by mouth daily at bedtime. metoprolol tartrate, short acting, (LOPRESSOR) 25 mg tablet Takes half of pill twice daily losartan (COZAAR) 25 mg tablet Take 1 tablet by mouth once daily. (Patient taking differently: Take 50 mg by mouth once daily. [facility]) ergocalciferol 50,000 unit capsule (VITAMIN D2, DRISDOL) Take 1 capsule by mouth one time a week. pantoprazole DR (PROTONIX) 40 mg tablet Take 1 tablet by mouth once daily. lactulose (ENULOSE) 10 gram/15 mL solution Take 30 mL by mouth twice daily. nitroglycerin sublingual (NITROQUICK) 0.4 mg SL tablet Dissolve 1 tablet under the tongue every 5 minutes as needed for Chest Pain. COMPOUNDED PRESCRIPTION Diabetic arch supports Dx: E11.9 M72.2 aspirin 81 mg chewable tablet Take 1 tablet by mouth once daily. multivitamin tablet Take 1 tablet by mouth once daily. cetirizine (ZYRTEC) 10 mg tablet Take 10 mg by mouth once daily as needed for cold/allergy symptoms. acetaminophen (TYLENOL) 500 mg tablet Take 500 mg by mouth every 8 hours as needed. latanoprost (XALATAN) 0.005 % ophthalmic solution Use 1 Drop in both eyes daily at bedtime. FAMILY HISTORY Adopted: Yes Problem Relation Age of Onset Hypertension Mother other (auto immune hepatitis) Mother other (unknown) Father Diabetes Maternal Grandmother None Maternal Grandfather other (unknown) Paternal Grandmother other (unknown) Paternal Grandfather None Daughter other (Other) Sister blood clot 1/2 sister other (hormone issues) Daughter Social History Tobacco Use Smoking status: Former Types: Cigars Passive exposure: Never Smokeless tobacco: Never Tobacco comments: Pt will have an occassional cigar.- done with cigars Vaping Use Vaping Use: Never used Substance Use Topics Alcohol use: Not Currently Comment: bourbon every two to three weeks Drug use: No BP 130/84 Pulse 67 Temp 36.1 C (97 F) (Temporal) Resp 16 Wt 113.4 kg (250 lb) SpO2 98% BMI 34.87 kg/m Physical Exam Vitals reviewed. Constitutional: Appearance: Normal appearance. Cardiovascular: Rate and Rhythm: Normal rate and regular rhythm. Pulses: Normal pulses. Heart sounds: Normal heart sounds. Comments: LLE-multiple varicose veins without erythema, induration or increased warmth. Non-pitting edema of the calf. Tenderness around the medial aspect of lower leg Pulmonary: Effort: Pulmonary effort is normal. Breath sounds: Normal breath sounds. No wheezing, rhonchi or rales. Skin: General: Skin is warm and dry. Neurological: Mental Status: He is alert. Psychiatric: Mood and Affect: Mood normal. DATA REVIEWED: Most recent labs Modified Wells Rule for DVT (1pt each) - active cancer (tx or palliation in last 6mo)= 0 - paralysis, paresis or recent leg casting= 0 - bedridden >3D/major surgery w/in 4 wks= 0 - localized tenderness along deep venous system= 1 - entire ext swollen= 0 - unilateral calf swelling >3cm below Tibial tuberosity= 1 - unilateral pitting edema= 0 - prominent non-varicose collateral superficial veins= 0 Score -2 if alt dx as likely as DVT= 0 Score Total: 2 Pretest probabilty: High >= 3, Intermediate 1-2, Low 0 ASSESSMENT/PLAN: 1. Pain of left calf - ICD9: 729.5, ICD10: M79.662 (primary diagnosis) Patient reports family history of blood clots but unsure if caused by a clotting disorder. Symptoms concerning for DVT, other differentials include thrombophlebitis, inflamed varicose veins, musculoskeletal - US LEG VEIN DVT UNL VAS LAB stat today - follow-up and further recommendations pending results 2. Edema of left lower extremity - ICD9: 782.3, ICD10: R60.0 As above - US LEG VEIN DVT UNL VAS LAB Lizeth Bradford APRN.SENIOR CONTROL SYSTEMS ENGINEER Prescription instructions reviewed with patient as applicable. Potential red flag symptoms discussed with the patient. Reviewed appropriate action plan to take if red flag symptoms occur. Patient agreeable to treatment plan. Lizeth Bradford APRN.ALANIS documented in this encounter [facility] 03-10-2024 History of Present illness Narrative Reason for Visit Patient presents with: 6 month follow up Waldo Zee is a 63 year old male who presents here today for CPE. 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 Chronic conditions are fairly well-controlled but he does like to eat sweet food and was complaining of neuropathy which slowly got better with him changing the time when he eats his sugary foods. He has been watching his sweets, he loves sweets. Reviewed his lipid labs and all of them are normal. He still has trouble with cholesterols but he does not want to take cholesterol medication. He is exercising by walking, getting around 4/5 thousand steps a day. He has a large garden and he carries water in the garden. Carrying pounds of stuff for it. Diet: he is eating a lot of vegetables, and fruits, chocolate, is his weakness. Drinks around 2 times a week. His weight has remained stable. He has been to see an freight broker recently. He has been to see Michelle schreiber recently. Had a colonoscopy recently, good for 5 years No problem-specific Assessment & Plan notes found for this encounter. PAST MEDICAL HISTORY Diagnosis Date Coronary artery disease Diabetes (HCC) Esophageal reflux Fibromyalgia Glaucoma Hypertension Kidney stone Kidney stones 2022 Non-STEMI (non-ST elevated myocardial infarction) (HCC) 10/24/2018 Other and unspecified hyperlipidemia Rectal cancer (HCC) Diagnostic laparoscopy, open low anterior rectal and sigmoid resection, mobilization of splenic flexure, flexible sigmoidoscopy, diverting loop ileostomy 07/2017 Thyroid disease PAST SURGICAL HISTORY Procedure Laterality Date ABDOMINAL SURGERY HX CARDIAC CATH 10/24/2018 [facility] with stent placement COLON SURGERY HX COLONOSCOPY FLX DX W/COLLJ SPEC WHEN PFRMD 06/13/2017 Colonoscopy COLONOSCOPY FLX DX W/COLLJ SPEC WHEN PFRMD 05/29/2018 Colonoscopy COLONOSCOPY FLX DX W/COLLJ SPEC WHEN PFRMD 06/26/2019 Colonoscopy COLONOSCOPY FLX DX W/COLLJ SPEC WHEN PFRMD 07/02/2020 Colonoscopy ESOPHAGOGASTRODUODENOSCOPY TRANSORAL DIAGNOSTIC EGD HERNIA REPAIR HX 2018 incisional LITHOLINK CKD PROGRAM 07/11/2022 PAST SURGICAL HISTORY OF 07/2017 Diagnostic laparoscopy, open low anterior rectal and sigmoid resection, mobilization of splenic flexure, flexible sigmoidoscopy, diverting loop ileostomy PAST SURGICAL HISTORY OF 11/05/2017 ileostomy reversal PSA (EXTERNAL) 06/14/2015 normal (0.76) [facility] REMOVAL OF KIDNEY STONE 2022 FAMILY HISTORY Adopted: Yes Problem Relation Age of Onset Hypertension Mother other (auto immune hepatitis) Mother other (unknown) Father Diabetes Maternal Grandmother None Maternal Grandfather other (unknown) Paternal Grandmother other (unknown) Paternal Grandfather None Daughter other (Other) Sister blood clot 1/2 sister other (hormone issues) Daughter Social History Tobacco Use Smoking status: Former Types: Cigars Passive exposure: Never Smokeless tobacco: Never Tobacco comments: Pt will have an occassional cigar.- done with cigars Vaping Use Vaping Use: Never used Substance Use Topics Alcohol use: Not Currently Comment: bourbon every two to three weeks Drug use: No Past medical history, appointments, medications, allergies reviewed. Pertinent Lab/Diagnostic Studies are reviewed and discussed today Current Outpatient Medications: levothyroxine (LEVOXYL) 50 mcg tablet metFORMIN (GLUCOPHAGE) 500 mg tablet tamsulosin (FLOMAX) 0.4 mg metoprolol tartrate, short acting, (LOPRESSOR) 25 mg tablet losartan (COZAAR) 25 mg tablet ergocalciferol 50,000 unit capsule (VITAMIN D2, DRISDOL) pantoprazole DR (PROTONIX) 40 mg tablet lactulose (ENULOSE) 10 gram/15 mL solution nitroglycerin sublingual (NITROQUICK) 0.4 mg SL tablet COMPOUNDED PRESCRIPTION aspirin 81 mg chewable tablet multivitamin tablet cetirizine (ZYRTEC) 10 mg tablet acetaminophen (TYLENOL) 500 mg tablet latanoprost (XALATAN) 0.005 % ophthalmic solution Review of Systems CONSTITUTIONAL: No fevers, chills, nightsweats, unintended weight loss HEENT: Denies frequent or severe heaches, nasal congestion/sinus symptoms, problematic allergy problems. EYES: No diplopia or blurry vision. CARDIOVASCULAR: No chest pain, dyspnea, palpitations, orthopnea, PND, ankle edema. PULM: No dyspnea, unexplained cough. GI: No dysphagia/odynophagia, problematic reflux, constipation, diarrhea, changes in stool habits, hematochezia, melena. : No new urinary complaints, including dysuria, gross hematuria or pyuria. NEURO: No new balance problems, peripheral weakness/paresthesias or numbness of concern. MUSC-SKEL: No new joint pain, swelling, or erythema. PSY: No concerns regarding depression, anxiety or panic. INTEGUMENTARY: No new skin changes (rash, new or changing mole, new growth) Physical Exam BP 118/80 Pulse 65 Ht 180.3 cm (5' 11) Wt 113.9 kg (251 lb) BMI 35.01 kg/m General appearance: Well appearing, alert, in no acute distress, well-hydrated, well nourished. Skin: a few Seborrheic Keratosis on the back., no concerning lesions Head: Normocephalic, no masses, lesions, tenderness or abnormalities Eyes: Anicteric sclera. Pupils are equally round and reactive to light. Extraocular movements are intact. Ears: External ears normal, canals clear Nose/Sinuses: Nares normal, septum midline, mucosa normal, no drainage or sinus tenderness Oropharynx: Lips, mucosa, and tongue normal, teeth and gums normal, oropharynx normal Neck: Supple, no adenopathy; thyroid symmetric, normal size, no bruits Back: Normal exam Lungs: Lungs clear to auscultation. No wheezing, rhonchi, rales Heart: RRR without murmur, gallop, or rubs. No ectopy Abdomen: Normal abdominal exam, Abdomen soft, non-tender. Bowel sounds normal. No masses, organomegaly Extremities: No deformities, edema, skin discoloration, clubbing or cyanosis. Good capillary refill. Musculoskeletal: No joint swelling, deformity, or tenderness Peripheral pulses: Normal Neuro: Gait normal. Reflexes normal and symmetric. Sensation grossly intact. ASSESSMENT/PLAN: 1. Annual physical exam - ICD9: V70.0, ICD10: Z00.00 (primary diagnosis) - Counseled on healthy diet and regular exercise 2. Encounter for immunization - ICD9: V03.89, ICD10: Z23 - PNEUMOCOCCAL VACCINE, 23 VALENT (PNEUMOVAX 23) 3. Mixed hyperlipidemia - ICD9: 272.2, ICD10: E78.2 - Controlled - Counseled on healthy diet and regular exercise 4. Morbid obesity (HCC) - ICD9: 278.01, ICD10: E66.01 No increase in weight. 5. Type 2 diabetes mellitus without complication, without long-term current use of insulin (HCC) - ICD9: 250.00, ICD10: E11.9 - Controlled - Continue current medications 6. Rectal cancer (HCC) - ICD9: 154.1, ICD10: C20 - had a follow up colonoscopy this year and is not due for 5 years 7. Seborrheic keratosis - ICD9: 702.19, ICD10: L82.1 Bettye Powell MD documented in this encounter [facility] 03-10-2024 Note HNO ID: [id number] Author: BETTYE POWELL MD Service: ? Author Type: Physician Type: Progress Notes Filed: 03/10/2024 11:34 Note Text: Reason for Visit Patient presents with: 6 month follow up Waldo Zee is a 63 year old male who presents here today for CPE. 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 Chronic conditions are fairly well-controlled but he does like to eat sweet food and was complaining of neuropathy which slowly got better with him changing the time when he eats his sugary foods. He has been watching his sweets, he loves sweets. Reviewed his lipid labs and all of them are normal. He still has trouble with cholesterols but he does not want to take cholesterol medication. He is exercising by walking, getting around 4/5 thousand steps a day. He has a large garden and he carries water in the garden. Carrying pounds of stuff for it. Diet: he is eating a lot of vegetables, and fruits, chocolate, is his weakness. Drinks around 2 times a week. His weight has remained stable. He has been to see an freight broker recently. He has been to see Michelle schreiber recently. Had a colonoscopy recently, good for 5 years No problem-specific Assessment AND Plan notes found for this encounter. PAST MEDICAL HISTORY Diagnosis Date Coronary artery disease Diabetes (HCC) Esophageal reflux Fibromyalgia Glaucoma Hypertension Kidney stone Kidney stones 2022 Non-STEMI (non-ST elevated myocardial infarction) (HCC) 10/24/2018 Other and unspecified hyperlipidemia Rectal cancer (HCC) Diagnostic laparoscopy, open low anterior rectal and sigmoid resection, mobilization of splenic flexure, flexible sigmoidoscopy, diverting loop ileostomy 07/2017 Thyroid disease PAST SURGICAL HISTORY Procedure Laterality Date ABDOMINAL SURGERY HX CARDIAC CATH 10/24/2018 [facility] with stent placement COLON SURGERY HX COLONOSCOPY FLX DX W/COLLJ SPEC WHEN PFRMD 06/13/2017 Colonoscopy COLONOSCOPY FLX DX W/COLLJ SPEC WHEN PFRMD 05/29/2018 Colonoscopy COLONOSCOPY FLX DX W/COLLJ SPEC WHEN PFRMD 06/26/2019 Colonoscopy COLONOSCOPY FLX DX W/COLLJ SPEC WHEN PFRMD 07/02/2020 Colonoscopy ESOPHAGOGASTRODUODENOSCOPY TRANSORAL DIAGNOSTIC EGD HERNIA REPAIR HX 2018 incisional LITHOLINK CKD PROGRAM 07/11/2022 PAST SURGICAL HISTORY OF 07/2017 Diagnostic laparoscopy, open low anterior rectal and sigmoid resection, mobilization of splenic flexure, flexible sigmoidoscopy, diverting loop ileostomy PAST SURGICAL HISTORY OF 11/05/2017 ileostomy reversal PSA (EXTERNAL) 06/14/2015 normal (0.76) [facility] REMOVAL OF KIDNEY STONE 2022 FAMILY HISTORY Adopted: Yes Problem Relation Age of Onset Hypertension Mother other (auto immune hepatitis) Mother other (unknown) Father Diabetes Maternal Grandmother None Maternal Grandfather other (unknown) Paternal Grandmother other (unknown) Paternal Grandfather None Daughter other (Other) Sister blood clot 1/2 sister other (hormone issues) Daughter Social History Tobacco Use Smoking status: Former Types: Cigars Passive exposure: Never Smokeless tobacco: Never Tobacco comments: Pt will have an occassional cigar.- done with cigars Vaping Use Vaping Use: Never used Substance Use Topics Alcohol use: Not Currently Comment: bourbon every two to three weeks Drug use: No Past medical history, appointments, medications, allergies reviewed. Pertinent Lab/Diagnostic Studies are reviewed and discussed today Current Outpatient Medications: levothyroxine (LEVOXYL) 50 mcg tablet metFORMIN (GLUCOPHAGE) 500 mg tablet tamsulosin (FLOMAX) 0.4 mg metoprolol tartrate, short acting, (LOPRESSOR) 25 mg tablet losartan (COZAAR) 25 mg tablet ergocalciferol 50,000 unit capsule (VITAMIN D2, DRISDOL) pantoprazole DR (PROTONIX) 40 mg tablet lactulose (ENULOSE) 10 gram/15 mL solution nitroglycerin sublingual (NITROQUICK) 0.4 mg SL tablet COMPOUNDED PRESCRIPTION aspirin 81 mg chewable tablet multivitamin tablet cetirizine (ZYRTEC) 10 mg tablet acetaminophen (TYLENOL) 500 mg tablet latanoprost (XALATAN) 0.005 % ophthalmic solution Review of Systems CONSTITUTIONAL: No fevers, chills, nightsweats, unintended weight loss HEENT: Denies frequent or severe heaches, nasal congestion/sinus symptoms, problematic allergy problems. EYES: No diplopia or blurry vision. CARDIOVASCULAR: No chest pain, dyspnea, palpitations, orthopnea, PND, ankle edema. PULM: No dyspnea, unexplained cough. GI: No dysp (more content not included)... [facility] 02-26-2024 Note Patient Outreach (IN [facility]) ---- WALDO ZEE ([id number]) 1960 M [facility] Date Time Provider Department 02/26/24 BETTYE POWELL During your visit today, we recorded the following information about you: Allergies As of Date: 02/26/2024 Noted Allergy Reaction ATORVASTATIN 03/15/2023 8 - GI Upset Comments: Cause acid reflux DUST MITES 11/11/2009 ROSUVASTATIN 03/15/2023 8 - GI Upset Comments: Cause acid reflux Date Reviewed: 09/28/2023 Reviewed by: Virginie Benavidez, RT(R) - Fully Assessed Visit Diagnoses:Medication management [Z79.899] Type 2 diabetes mellitus without complication, without long-term current use of insulin (HCC) [E11.9] Order(s):THYROID STIMULATING HORMONE [SQTSH] Order #: [id number] FUTURE COMPLETE BLOOD COUNT [SQCBC] Order #: [id number] FUTURE Prescriptions as of 02/29/2024 - levothyroxine (LEVOXYL) 50 mcg tablet Take 1 tablet by mouth once daily. Take on empty stomach. For Thyroid - metFORMIN (GLUCOPHAGE) 500 mg tablet Take 2 pills with breakfast and 1 pill with dinner - tamsulosin (FLOMAX) 0.4 mg Take 1 capsule by mouth daily at bedtime. - metoprolol tartrate, short acting, (LOPRESSOR) 25 mg tablet Takes half of pill twice daily - losartan (COZAAR) 25 mg tablet Take 1 tablet by mouth once daily. - ergocalciferol 50,000 unit capsule (VITAMIN D2, DRISDOL) Take 1 capsule by mouth one time a week. - pantoprazole DR (PROTONIX) 40 mg tablet Take 1 tablet by mouth once daily. - lactulose (ENULOSE) 10 gram/15 mL solution Take 30 mL by mouth twice daily. - nitroglycerin sublingual (NITROQUICK) 0.4 mg SL tablet Dissolve 1 tablet under the tongue every 5 minutes as needed for Chest Pain. - COMPOUNDED PRESCRIPTION Diabetic arch supports Dx: E11.9 M72.2 - aspirin 81 mg chewable tablet Take 1 tablet by mouth once daily. - multivitamin tablet Take 1 tablet by mouth once daily. - cetirizine (ZYRTEC) 10 mg tablet Take 10 mg by mouth once daily as needed for cold/allergy symptoms. - acetaminophen (TYLENOL) 500 mg tablet Take 500 mg by mouth every 8 hours as needed. - latanoprost (XALATAN) 0.005 % ophthalmic solution Use 1 Drop in both eyes daily at bedtime. Problem List As Of Date 02/26/2024 Noted Resolved Mixed hyperlipidemia [E78.2] Esophageal reflux [K21.9] 06/02/2020 Tracheobronchitis [J40] 09/17/2009 02/09/2014 Cough [R05.9] 09/17/2009 02/09/2014 Elevated liver enzymes [R74.8] 10/17/2013 Erosive esophagitis [K22.10] 12/12/2013 Diabetes (HCC) [E11.9] 01/20/2014 11/22/2018 Elevated LFTs [R79.89] 02/09/2014 02/09/2014 Knee pain [M25.569] 05/05/2014 Routine health maintenance [Z00.00] 07/07/2014 Obesity (BMI 30.0-34.9) [E66.9] 07/28/2014 06/02/2020 Primary open angle glaucoma [H40.1190] 02/15/2016 Annual physical exam [Z00.00] 05/29/2017 06/02/2020 Cancer of sigmoid colon (HCC) [C18.7] 07/13/2017 Type 2 diabetes mellitus without complication, *07/13/2017 Rectal cancer (HCC) [C20] 08/02/2017 BMI 39.0-39.9,adult [Z68.39] 08/06/2017 Hypotension [I95.9] 08/06/2017 08/06/[address] (HCC) [Z93.2] 08/06/2017 04/03/2018 Hypokalemia [E87.6] 08/06/2017 08/06/2017 Post-op pain [G89.18] 08/06/2017 06/02/2020 Fibromyalgia [M79.7] History of rectal cancer [Z85.048] 11/05/2017 Attention to ileostomy (HCC) [Z43.2] 11/06/2017 04/03/2018 Malnutrition of mild degree (HCC) [E44.1] 11/06/2017 06/02/2020 Vitamin D deficiency [E55.9] 02/18/2018 Ventral hernia without obstruction or gangrene *04/17/2018 06/02/2020 Family history of colon cancer [Z80.0] 05/15/2018 06/02/2020 Incisional hernia [K43.2] 06/26/2018 06/02/2020 Coronary artery disease involving [place]*06/02/2020 Fatty liver [K76.0] 02/08/2021 Morbid obesity (HCC) [E66.01] 02/08/2021 Burning sensation of feet [R20.8] 08/03/2023 History of colonic polyps [Z86.010] 08/31/2023 Encounter Status:Closed by [email or web address] on 02/29/24 [facility] 11-26-2023 Miscellaneous Notes Patient scheduled f/u appt with pcp. Needs follow up scheduled. Last saw Dr. Salgado July--to schedule 6 month FU The following approved medication requests have been transmitted electronically. Requested Prescriptions Signed Prescriptions Disp Refills levothyroxine (LEVOXYL) 50 mcg tablet 90 tablet 1 Sig: Take 1 tablet by mouth once daily. Take on empty stomach. For Thyroid Authorizing Provider: EMMA CARDOZA metFORMIN (GLUCOPHAGE) 500 mg tablet 180 tablet 1 Sig: Take 2 pills with breakfast and 1 pill with dinner Authorizing Provider: EMMA CARDOZA tamsulosin (FLOMAX) 0.4 mg 90 capsule 1 Sig: Take 1 capsule by mouth daily at bedtime. Authorizing Provider: EMMA CARDOZA metoprolol tartrate, short acting, (LOPRESSOR) 25 mg tablet 90 tablet 1 Sig: Takes half of pill twice daily Authorizing Provider: EMMA CARDOZA losartan (COZAAR) 25 mg tablet 90 tablet 1 Sig: Take 1 tablet by mouth once daily. Authorizing Provider: EMMA CARDOZA ergocalciferol 50,000 unit capsule (VITAMIN D2, DRISDOL) 12 capsule 1 Sig: Take 1 capsule by mouth one time a week. Authorizing Provider: EMMA CARDOZA pantoprazole DR (PROTONIX) 40 mg tablet 90 tablet 1 Sig: Take 1 tablet by mouth once daily. Authorizing Provider: EMMA CARDOZA MD More refills at follow up appointment. Patient has been identified by name and date of : No Patient phones for refill(s): Requested Prescriptions Pending Prescriptions Disp Refills levothyroxine (LEVOXYL) 50 mcg tablet 90 tablet 3 Sig: Take 1 tablet by mouth once daily. Take on empty stomach. For Thyroid metFORMIN (GLUCOPHAGE) 500 mg tablet 180 tablet 6 Sig: Take 2 pills with breakfast and 1 pill with dinner tamsulosin (FLOMAX) 0.4 mg 90 capsule 3 Sig: Take 1 capsule by mouth daily at bedtime. metoprolol tartrate, short acting, (LOPRESSOR) 25 mg tablet 90 tablet 3 Sig: Takes half of pill twice daily losartan (COZAAR) 25 mg tablet 90 tablet 3 Sig: Take 1 tablet by mouth once daily. ergocalciferol 50,000 unit capsule (VITAMIN D2, DRISDOL) 12 capsule 3 Sig: Take 1 capsule by mouth one time a week. pantoprazole DR (PROTONIX) 40 mg tablet 90 tablet 3 Sig: Take 1 tablet by mouth once daily. Date of last office visit in primary care: 08/03/2023 Date of next office visit in primary care: Visit date not found Phoned patient to call office back and set up appointment with for med follow up. My chart message also sent to patient as well Please advise. Thank you. Loli Gerard LPN. Patient has been identified by name and date of : Yes Requested Prescriptions Pending Prescriptions Disp Refills levothyroxine (LEVOXYL) 50 mcg tablet 90 tablet 3 Sig: Take 1 tablet by mouth once daily. Take on empty stomach. For Thyroid metFORMIN (GLUCOPHAGE) 500 mg tablet 180 tablet 6 Sig: Take 2 pills with breakfast and 1 pill with dinner tamsulosin (FLOMAX) 0.4 mg 90 capsule 3 Sig: Take 1 capsule by mouth daily at bedtime. metoprolol tartrate, short acting, (LOPRESSOR) 25 mg tablet 90 tablet 3 Sig: Takes half of pill twice daily losartan (COZAAR) 25 mg tablet 90 tablet 3 Sig: Take 1 tablet by mouth once daily. ergocalciferol 50,000 unit capsule (VITAMIN D2, DRISDOL) 12 capsule 0 Sig: Take 1 capsule by mouth one time a week. pantoprazole DR (PROTONIX) 40 mg tablet 90 tablet 3 Sig: Take 1 tablet by mouth once daily. RX INSTRUCTIONS: Patient aware RX will be sent to pharmacy. No need to notify patient. Patient does not want to use the mail order. Patient is concerned about metoprolol. He said the mail order said they sent it, but he never received it and needs that and Vitamin D2 now.. Michelle Valencia documented in this encounter [facility] 10-02-2023 Miscellaneous Notes Called patient back and answered his questions. Patient verbalized understanding. Patient called today regarding his recent CT scan Would like to discuss results, and has additional questions Please contact the patient, he can be reached at [phone] documented in this encounter [facility] 10-02-2023 Miscellaneous Notes Called patient and gave patient message below. Patient verbalized understanding. Team - Inform patient his CTU results show: 6 mm x 5 mm terminal left ureteral calculus. Small remaining peripelvic bilateral intrarenal calculi. His urine was also very dirty but his UC had now growth. I want him to repeat his urine. He needs to hydrate really well before the test. I talked to Dr. Liriano and he said he would see him if he has not passed the kidney stone yet and consider removing it surgically. If he has not passed please schedule him with Dr. Liriano. Orders Placed This Encounter Urinalysis w Microscopic, reflex Culture Standing Status: Future Standing Expiration Date: 01/01/2024 Everette Cross DNP, ALANIS Department of Urology [facility] documented in this encounter [facility] 10-01-2023 History of Present illness Narrative Radiology Service Progress Note DATE OF SERVICE: October 01, 2023 TIME: 1:41 PM PATIENT IDENTITY VERIFICATION COMPLETED USING TWO (2) STANDARD IDENTIFIERS: Name and Date of confirmed by patient verbally. FALL SCREENING: Has the patient had 2 falls in the last year or 1 fall with injury or currently using an Ambulatory Assistive Device (Walker, Cane, Wheelchair, Crutches, etc.)? No PATIENT GENDER DATA: Male PATIENT RELEVANT IMPLANT DATA REVIEWED: Yes PATIENT PRESENTS WITH AN IMPLANTABLE OR ATTACHED BUTADIENE CONVERTER HELPER: No ALLERGIES: Reviewed and unchanged CONTRAST ALLERGY: NO. EXAM: CT -CONTRAST INDUCED NEPHROPATHY RISK FACTORS: Patient age > 60 years CREATININE: Creatinine Date Value Ref Range Status 09/28/2023 1.13 0.73 - 1.22 mg/dL Final 05/03/2023 0.93 0.73 - 1.22 mg/dL Final 06/23/2022 0.87 0.73 - 1.22 mg/dL Final Estimated Glomerular Filtration Rate Date Value Ref Range Status 09/28/2023 74 >=60 mL/min/1.73m Final Comment: Estimated Glomerular Filtration Rate (eGFR) is calculated using the 2020 CKD-EPI creatinine equation. This equation utilizes serum creatinine, sex, and age as parameters. The creatinine assay has traceable calibration to isotope dilution-mass spectrometry. Refer to KDIGO guidelines for clinical interpretation. In patients with unstable renal function, e.g. those with acute kidney injury, the eGFR may not accurately reflect actual GFR. eGFR- Date Value Ref Range Status 05/11/2020 >60 Final P.O.C.T. RESULTS: POC done: Yes, See Lab Tab October 01, 2023 TREATMENT: N/A PERIPHERAL IV DATA: Ambulatory: A peripheral IV was started in the Left antecubital site with a Angio cath: 22 gauge. RADIOLOGY DEPARTMENT: CT; Exam(s) Completed: Urogram SIGNATURE: RT Jordyn(Leeanne) PATIENT NAME: Waldo Zee DATE: October 01, 2023 TIME: 1:41 PM documented in this encounter [facility] 10-01-2023 Note HNO ID: [id number] Author: VIRGINIE BENAVIDEZ RT(R) Service: ? Author Type: Temperer Type: Progress Notes Filed: 10/01/2023 13:41 Note Text: Radiology Service Progress Note DATE OF SERVICE: October 01, 2023 TIME: 1:41 PM PATIENT IDENTITY VERIFICATION COMPLETED USING TWO (2) STANDARD IDENTIFIERS: Name and Date of confirmed by patient verbally. FALL SCREENING: Has the patient had 2 falls in the last year or 1 fall with injury or currently using an Ambulatory Assistive Device (Walker, Cane, Wheelchair, Crutches, etc.)? No PATIENT GENDER DATA: Male PATIENT RELEVANT IMPLANT DATA REVIEWED: Yes PATIENT PRESENTS WITH AN IMPLANTABLE OR ATTACHED BUTADIENE CONVERTER HELPER: No ALLERGIES: Reviewed and unchanged CONTRAST ALLERGY: NO. EXAM: CT -CONTRAST INDUCED NEPHROPATHY RISK FACTORS: Patient age > 60 years CREATININE: Creatinine Date Value Ref Range Status 09/28/2023 1.13 0.73 - 1.22 mg/dL Final 05/03/2023 0.93 0.73 - 1.22 mg/dL Final 06/23/2022 0.87 0.73 - 1.22 mg/dL Final Estimated Glomerular Filtration Rate Date Value Ref Range Status 09/28/2023 74 >=60 mL/min/1.73m? Final Comment: Estimated Glomerular Filtration Rate (eGFR) is calculated using the 2020 CKD-EPI creatinine equation. This equation utilizes serum creatinine, sex, and age as parameters. The creatinine assay has traceable calibration to isotope dilution-mass spectrometry. Refer to KDIGO guidelines for clinical interpretation. In patients with unstable renal function, e.g. those with acute kidney injury, the eGFR may not accurately reflect actual GFR. eGFR- Date Value Ref Range Status 05/11/2020 >60 Final P.O.C.T. RESULTS: POC done: Yes, See Lab Tab October 01, 2023 TREATMENT: N/A PERIPHERAL IV DATA: Ambulatory: A peripheral IV was started in the Left antecubital site with a Angio cath: 22 gauge. RADIOLOGY DEPARTMENT: CT; Exam(s) Completed: Urogram SIGNATURE: RT Jordyn(R) PATIENT NAME: Waldo Zee DATE: October 01, 2023 TIME: 1:41 PM [facility] 09-17-2023 Instructions Everette Cross APRN.ALANIS, ROSALIND - 09/17/2023 1:50 PM EST Follow up in General stone prevention guidelines: Proper daytime & night time hydration. Recommend 2.5-3 L of fluid daily. Low sodium diet, < 2000 mg/d. Good fruit & vegetable intake- 5 a day for good citrate intake. Adequate calcium intake, 2-3 servings daily. Strain urine Return to the clinic or seek care at Express[facility]gent [facility] for any worsening signs or symptoms: such as fevers, chills, worsening pain, nausea. For severe symptoms seek care at the closest ER. Plan of care, medicaiton side effects and management reviewed with patient. Diet Recommendations for Kidney Stones - General Recommendations Drink plenty of fluid: 2-3 quarts/day. This includes any type of fluid such as water, coffee and lemonade which have been shown to have a beneficial effect with the exception of grapefruit juice and soda. This will help produce less concentrated urine and ensure a good urine volume of at least 2.5L/day Limit foods with high oxalate content Spinach, many berries, chocolate, wheat bran, nuts, beets, tea and rhubarb should be eliminated from your diet intake Eat enough dietary calcium Three servings of dairy per day will help lower the risk of calcium stone formation. Eat with meals. Avoid extra calcium supplements Calcium supplements should be individualized by your physician and registered kidney dietitian Eat a moderate amount of protein High protein intakes will cause the kidneys to excrete more calcium therefore this may cause more stones to form in the kidney Avoid high salt intake High sodium intake increases calcium in the urine which increases the chances of developing stones Low salt diet is also important to control blood pressure. Avoid high doses of vitamin C supplements It is recommend to take 60mg/day of vitamin C based on the [place] Dietary Reference Intake Excess amounts of 1000mg/day or more may produce more oxalate in the body Below is a list of high oxalate drinks/foods. Beverages High in Oxalate: Tea, sodas/cola, chocolate containing beverages, soy milk. Foods highest in oxalate (over 100 mg per serving) include: Spinach: cooked or raw, contains over 500 mg of oxalate per serving Rhubarb: over 500 mg per serving Rice bran and buckwheat groats: 100 mg to 300 mg per serving Almonds: 120 mg per serving Miso: over 100 mg per serving Foods high in oxalate (between 40 mg to 100 mg per serving) include: Grains: wheat berries, corn grits/cornmeal, bulgar, and millet have between 60 mg to 100 mg per serving Potatoes: leaving the skin on increases the oxalate content, but tajik fries and yams have around 40 mg to 50 mg per serving Beans: navy beans (70 mg per serving) and soybeans (50 mg per serving) Certain types of flour: soy flour (90 mg per serving), brown rice flour (65 mg per serving), and barley flour (40 mg per serving) Beets: about 80 mg per serving [place] powder and hot chocolate: 65 mg per serving Okra: 55 mg per serving Cashews: 50 mg per serving Certain cereals: shredded wheat and bran flakes have 40 mg to 60 mg per serving Raspberries: 50 mg per serving Healthy Habits: Recommend regular physical activity, nutrition and healthy eating habits. Consume a variety of foods every day focusing on fruits, vegetables and lean meats). Eat foods low in fat, saturated fat and cholesterol. Eat a limited amount of salt and sodium. Drink adequate amounts of water and limit sugary drinks. Exercise portion control in meal selection. Establish a mindset of a wellness approach to health. Thank you for allowing me to provide your care today. I look forward to seeing you again and maintaining your health. Everette Cross APRN.ROSALIND THAPA documented in this encounter [facility] 09-17-2023 Note HNO ID: [id number] Author: EVERETTE CROSS APRN.ROSALIND THAPA Service: ? Author Type: Nurse Practitioner Type: Progress Notes Filed: 09/28/2023 16:12 Note Text: [facility] Referring provider: Bettye Powell MD New patient to Urology 09/17/2023 Chief Complaint Patient presents with: Kidney Stones HPI Waldo Zee is a 63 year old male who presents here today for a history of urinary symptoms and kidney stones. Hx sig for - Rectal cancer, DM, Obesity, Hypothyroidism, This is an established patient of Dr. Bettye Powell MD. This is a new patient to me. Denies any recent urgent care visits, ER visits or hospitalizations. Hx of Colorectal Cancer - stage 1 Dx'd 07/2017. Established patient of our Urology team. 3 weeks ago noticed gross blood to his urine x 1 day. Restarted taking his Flomax and his symptoms improved. Denies dysuria, burning, urgency, and frequency. No blood in the urine. No fever or chills. Denies suprapubic pain. Denies frequent UTI's. - Dull back ache and testicles ache over the past few weeks. Seen Dr. Gallegos on 07/11/22: Who performed a LASER CYSTOURETHROSCOPY W/ URETEROSCOPY AND/OR PYELOSCOPY W/ LITHOTRIPSY HOLMIUM - Right with Raymundo Gallegos MD on 07/11/2022 LUTS: Obstructive: Poor/Weak stream: No Hesitancy: No Intermittency: Yes Double voiding No Post-void dribbling: No Incomplete emptying: No Irritative: Nocturnal Frequency: No Urgency: No Frequency: No Dysuria: No Incontinence: No Microscopic Hematuria: No Gross Hematuria: Yes Past medical history, appointments, medications, allergies reviewed 09/17/2023 Previous Medical History PAST MEDICAL HISTORY Diagnosis Date Coronary artery disease Diabetes (HCC) Esophageal reflux Fibromyalgia Glaucoma Hypertension Kidney stone Kidney stones 2022 Non-STEMI (non-ST elevated myocardial infarction) (HCC) 10/24/2018 Other and unspecified hyperlipidemia Rectal cancer (HCC) Diagnostic laparoscopy, open low anterior rectal and sigmoid resection, mobilization of splenic flexure, flexible sigmoidoscopy, diverting loop ileostomy 07/2017 Thyroid disease Previous Surgical History PAST SURGICAL HISTORY Procedure Laterality Date ABDOMINAL SURGERY HX CARDIAC CATH 10/24/2018 [facility] with stent placement COLON SURGERY HX COLONOSCOPY FLX DX W/COLLJ SPEC WHEN PFRMD 06/13/2017 Colonoscopy COLONOSCOPY FLX DX W/COLLJ SPEC WHEN PFRMD 05/29/2018 Colonoscopy COLONOSCOPY FLX DX W/COLLJ SPEC WHEN PFRMD 06/26/2019 Colonoscopy COLONOSCOPY FLX DX W/COLLJ SPEC WHEN PFRMD 07/02/2020 Colonoscopy ESOPHAGOGASTRODUODENOSCOPY TRANSORAL DIAGNOSTIC EGD HERNIA REPAIR HX 2018 incisional LITHOLINK CKD PROGRAM 07/11/2022 PAST SURGICAL HISTORY OF 07/2017 Diagnostic laparoscopy, open low anterior rectal and sigmoid resection, mobilization of splenic flexure, flexible sigmoidoscopy, diverting loop ileostomy PAST SURGICAL HISTORY OF 11/05/2017 ileostomy reversal PSA (EXTERNAL) 06/14/2015 normal (0.76) [facility] REMOVAL OF KIDNEY STONE 2022 Family History FAMILY HISTORY Adopted: Yes Problem Relation Age of Onset Hypertension Mother other (auto immune hepatitis) Mother other (unknown) Father Diabetes Maternal Grandmother None Maternal Grandfather other (unknown) Paternal Grandmother other (unknown) Paternal Grandfather None Daughter other (Other) Sister blood clot 1/2 sister other (hormone issues) Daughter Patient Allergies ALLERGIES Allergen Reactions Atorvastatin GI Upset Cause acid reflux Dust Mites Rosuvastatin GI Upset Cause acid reflux Current Medications Current Outpatient Medications on File Prior to Visit Medication Sig metFORMIN (GLUCOPHAGE) 500 mg tablet Take 2 pills with breakfast and 1 pill with dinner pantoprazole DR (PROTONIX) 40 mg tablet Take 1 tablet by mouth once daily. metoprolol tartrate, short acting, (LOPRESSOR) 25 mg tablet Takes half of pill twice daily ergocalciferol 50,000 unit capsule (VITAMIN D2, DRISDOL) Take 1 capsule by mouth one time a week. levothyroxine (LEVOXYL) 50 mcg tablet Take 1 tablet by mouth once daily. Take on empty stomach. For Thyroid tamsulosin (FLOMAX) 0.4 mg Take 1 capsule by mouth daily at bedtime. (Patient taking differently: Take 0.4 mg by mouth once daily as needed.) lactulose (ENULOSE) 10 gram/15 mL solution Take 30 mL by mouth twice daily. (Patient not taking: Reported on 08/23/2023) losartan (COZAAR) 25 mg tablet Take 1 tablet by mouth once daily. nitroglycerin sublingual (NITROQUICK) 0.4 mg SL tablet Dissolve 1 tablet under the tongue every 5 minutes as needed for Chest Pain. COMPOUNDED PRESCRIPTION Diabetic arch supports Dx: E11.9 M72.2 aspirin 81 mg chewable tablet Take 1 tablet by mouth once daily. multivitamin tablet Take 1 tablet by mouth once daily. cetirizine (ZYRTEC) 10 mg tablet Take 10 mg by mouth once daily as needed for cold/allergy (more content not included)... [facility] 09-17-2023 History of Present illness Narrative [facility] Referring provider: Bettye Powell MD New patient to Urology 09/17/2023 Chief Complaint Patient presents with: Kidney Stones HPI Waldo Zee is a 63 year old male who presents here today for a history of urinary symptoms and kidney stones. Hx sig for - Rectal cancer, DM, Obesity, Hypothyroidism, This is an established patient of Dr. Bettye Powell MD. This is a new patient to me. Denies any recent urgent care visits, ER visits or hospitalizations. Hx of Colorectal Cancer - stage 1 Dx'd 07/2017. Established patient of our Urology team. 3 weeks ago noticed gross blood to his urine x 1 day. Restarted taking his Flomax and his symptoms improved. Denies dysuria, burning, urgency, and frequency. No blood in the urine. No fever or chills. Denies suprapubic pain. Denies frequent UTI's. - Dull back ache and testicles ache over the past few weeks. Seen Dr. Gallegos on 07/11/22: Who performed a LASER CYSTOURETHROSCOPY W/ URETEROSCOPY AND/OR PYELOSCOPY W/ LITHOTRIPSY HOLMIUM - Right with Raymundo Gallegos MD on 07/11/2022 LUTS: Obstructive: Poor/Weak stream: No Hesitancy: No Intermittency: Yes Double voiding No Post-void dribbling: No Incomplete emptying: No Irritative: Nocturnal Frequency: No Urgency: No Frequency: No Dysuria: No Incontinence: No Microscopic Hematuria: No Gross Hematuria: Yes Past medical history, appointments, medications, allergies reviewed 09/17/2023 Previous Medical History PAST MEDICAL HISTORY Diagnosis Date Coronary artery disease Diabetes (HCC) Esophageal reflux Fibromyalgia Glaucoma Hypertension Kidney stone Kidney stones 2022 Non-STEMI (non-ST elevated myocardial infarction) (HCC) 10/24/2018 Other and unspecified hyperlipidemia Rectal cancer (HCC) Diagnostic laparoscopy, open low anterior rectal and sigmoid resection, mobilization of splenic flexure, flexible sigmoidoscopy, diverting loop ileostomy 07/2017 Thyroid disease Previous Surgical History PAST SURGICAL HISTORY Procedure Laterality Date ABDOMINAL SURGERY HX CARDIAC CATH 10/24/2018 [facility] with stent placement COLON SURGERY HX COLONOSCOPY FLX DX W/COLLJ SPEC WHEN PFRMD 06/13/2017 Colonoscopy COLONOSCOPY FLX DX W/COLLJ SPEC WHEN PFRMD 05/29/2018 Colonoscopy COLONOSCOPY FLX DX W/COLLJ SPEC WHEN PFRMD 06/26/2019 Colonoscopy COLONOSCOPY FLX DX W/COLLJ SPEC WHEN PFRMD 07/02/2020 Colonoscopy ESOPHAGOGASTRODUODENOSCOPY TRANSORAL DIAGNOSTIC EGD HERNIA REPAIR HX 2018 incisional LITHOLINK CKD PROGRAM 07/11/2022 PAST SURGICAL HISTORY OF 07/2017 Diagnostic laparoscopy, open low anterior rectal and sigmoid resection, mobilization of splenic flexure, flexible sigmoidoscopy, diverting loop ileostomy PAST SURGICAL HISTORY OF 11/05/2017 ileostomy reversal PSA (EXTERNAL) 06/14/2015 normal (0.76) [facility] REMOVAL OF KIDNEY STONE 2022 Family History FAMILY HISTORY Adopted: Yes Problem Relation Age of Onset Hypertension Mother other (auto immune hepatitis) Mother other (unknown) Father Diabetes Maternal Grandmother None Maternal Grandfather other (unknown) Paternal Grandmother other (unknown) Paternal Grandfather None Daughter other (Other) Sister blood clot 1/2 sister other (hormone issues) Daughter Patient Allergies ALLERGIES Allergen Reactions Atorvastatin GI Upset Cause acid reflux Dust Mites Rosuvastatin GI Upset Cause acid reflux Current Medications Current Outpatient Medications on File Prior to Visit Medication Sig metFORMIN (GLUCOPHAGE) 500 mg tablet Take 2 pills with breakfast and 1 pill with dinner pantoprazole DR (PROTONIX) 40 mg tablet Take 1 tablet by mouth once daily. metoprolol tartrate, short acting, (LOPRESSOR) 25 mg tablet Takes half of pill twice daily ergocalciferol 50,000 unit capsule (VITAMIN D2, DRISDOL) Take 1 capsule by mouth one time a week. levothyroxine (LEVOXYL) 50 mcg tablet Take 1 tablet by mouth once daily. Take on empty stomach. For Thyroid tamsulosin (FLOMAX) 0.4 mg Take 1 capsule by mouth daily at bedtime. (Patient taking differently: Take 0.4 mg by mouth once daily as needed.) lactulose (ENULOSE) 10 gram/15 mL solution Take 30 mL by mouth twice daily. (Patient not taking: Reported on 08/23/2023) losartan (COZAAR) 25 mg tablet Take 1 tablet by mouth once daily. nitroglycerin sublingual (NITROQUICK) 0.4 mg SL tablet Dissolve 1 tablet under the tongue every 5 minutes as needed for Chest Pain. COMPOUNDED PRESCRIPTION Diabetic arch supports Dx: E11.9 M72.2 aspirin 81 mg chewable tablet Take 1 tablet by mouth once daily. multivitamin tablet Take 1 tablet by mouth once daily. cetirizine (ZYRTEC) 10 mg tablet Take 10 mg by mouth once daily as needed for cold/allergy symptoms. acetaminophen (TYLENOL) 500 mg tablet Take 500 mg by mouth every 8 hours as needed. latanoprost (XALATAN) 0.005 % ophthalmic solution Use 1 Drop in both eyes daily at bedtime. No current facility-administered medications on file prior to visit. Social History Social History Tobacco Use Smoking status: Former Types: Cigars Passive exposure: Never Smokeless tobacco: Never Tobacco comments: Pt will have an occassional cigar.- done with cigars Vaping Use Vaping Use: Never used Substance Use Topics Alcohol use: Not Currently Comment: bourbon every two to three weeks Drug use: No LABS: Component Latest Ref Rng & Units 09/17/2023 GLUCOSE UA (POCT) Negative mg/dL Negative BILIRUBIN UA (POCT) Negative Negative KETONE UA (POCT) Negative mg/dL Negative SPECIFIC GRAVITY UA (POCT) 1.005 - 1.030 1.020 HEMOGLOBIN/BLOOD UA (POCT) Negative Trace-intact (A) PH UA (POCT) 4.5 - 8.0 6.0 PROTEIN UA (POCT) Negative mg/dL Negative UROBILINOGEN UA (POCT) Normal E.U./dL 0.2 NITRITE UA (POCT) Negative Negative LEUKOCYTES UA (POCT) Negative Negative COLOR UA (POCT) Yellow CLARITY UA (POCT) Clear Component Latest Ref Rng & Units 07/11/2022 Calculus Type CALCULI/CALCULUS Calculus Color BROWN Calculus Size and Wt Multiple pieces. 0.0683 GRAMS Calculus Composition 50% Calcium Oxalate Dihydrate Calculus Composition 2 40% Calcium Oxalate Monohydrate Calculus Composition 3 10% Minor Components Calculus Analysis IMAGING: Review of Symptoms GENERAL: No weight loss, malaise fatigue or fevers. GI: No nausea, vomiting, or diarrhea. No abdominal pain : + for burning, dysuria, urgency or frequency. No blood in urine MUSCULOSKELETAL: Negative for generalized joint pain or bodyaches SKIN: Negative for rash EXAM: BP 130/91 Pulse 71 Resp 16 Ht 180.3 cm (5' 11) Wt 113.9 kg (251 lb) BMI 35.01 kg/m General Appearance: Well appearing, alert, in no acute distress, well-hydrated, well nourished. Skin: Skin color, texture, turgor normal, no suspicious rashes or lesions. Head: Normocephalic, no masses, lesions, or abnormalities. GI: Soft and round. Nontender in epigastric region. No lower quadrant abdominal tenderness. No rebound tenderness. No suprapubic tenderness. No CVA tenderness. Male : Penis: Normal. Circumcised. No lesions or ulcerations. No urethral discharge Scrotum: No erythema or lesions. No scrotal mass/tenderness/edema. No epididymal mass or swelling/tenderness of epididymis. No varicocele/hydrocele. Testicle: No mass, cyst or tenderness No inguinal adenopathy No inguinal or femoral hernia detected Extremities: No deformities, edema, skin discoloration Psych: Attitude - cooperative, easily engaged in conversation Appearance - normal hygiene and grooming appropriate Affect - euthymic, normal mood Mental status: Alert, attentive. Gait/Stance: Posture is normal. Gait is steady Health Maintenance List Shingrix Vaccine(1 of 2) Never done Pneumococcal Vaccine(2 of 2 - PCV) due on 02/14/2017 RSV Vaccine(1 - 1-dose 60+ series) Never done Depression Assessment due on 08/13/2023 Dilated Retinal Exam due on 09/14/2023 Influenza Vaccine(1) due on 02/10/2024 Prostate Cancer Screening Discussion due on 05/04/2024 HIV Screening due on 05/04/2024 HbA1C due on 02/02/2024 LDL Cholesterol due on 05/03/2024 Urine Albumin:Creatinine Ratio due on 05/04/2024 Diabetic Foot Exam due on 05/04/2024 Annual PCP Team Chronic Disease Visit due on 08/03/2024 Colorectal Cancer Screening due on 08/31/2026 DTaP,Tdap,Td Vaccine(6 - Td or Tdap) due on 08/03/2033 Hepatitis C Screening Completed HPV Vaccine Aged Out Covid-19 Vaccine Discontinued Data reviewed Last 5 Encounter BP Readings: Date: BP: 09/11/2023 128/72 08/31/2023 134/81 08/23/2023 132/90 08/03/2023 124/80 05/04/2023 130/78 BMI Readings from Last 5 Encounters: 09/17/23 : 35.01 kg/m 09/11/23 : 35.29 kg/m 08/31/23 : 34.96 kg/m 08/23/23 : 34.95 kg/m 08/03/23 : 34.56 kg/m Last 5 Encounter Wt Readings: Date: Wt: 09/11/2023 114.8 kg (253 lb) 08/31/2023 113.7 kg (250 lb 10.6 oz) 08/23/2023 113.7 kg (250 lb 9.6 oz) 08/03/2023 112.4 kg (247 lb 12.8 oz) 05/04/2023 117 kg (258 lb) Medication and allergy list reviewed, reconciled and updated 09/17/2023 ASSESSMENT/PLAN: 1. Gross hematuria - ICD9: 599.71, ICD10: R31.0 (primary diagnosis) MDM: 63y/o male with hx of stage 1 colorectal cancer in 2017. Recent 1x episode of gross blood in urine. Plan: CTU UA/micro Hydrate well. RTC or go to ER for any gross blood. - UA DIP, URINE (POC) - URINALYSIS WITH MICROSCOPIC, REFLEX CULTURE - CT UROGRAM WO/W IVCON - IV CONTRAST (RADIOLOGY PROCEDURE) - SODIUM CHLORIDE 0.9 % INTRAVENOUS SOLUTION - CREATININE BLD 2. History of kidney stones - ICD9: V13.01, ICD10: Z87.442 MDM: Chronic - Hx of grace ox stones. Previous LASER CYSTOURETHROSCOPY with Dr. Gallegos. Recently he restarted taking his Flomax General stone prevention guidelines: Proper daytime & night time hydration. Recommend 2.5-3 L of fluid daily. Low sodium diet, < 2000 mg/d. Good fruit & vegetable intake- 5 a day for good citrate intake. Adequate calcium intake, 2-3 servings daily. Plan: CTU Follow dietary recommendations. Avoid bladder irritants. - UA DIP, URINE (POC) - URINALYSIS WITH MICROSCOPIC, REFLEX CULTURE - CT FLANK WO IVCON - TAMSULOSIN 0.4 MG CAPSULE Diet Recommendations for Kidney Stones - General Recommendations Drink plenty of fluid: 2-3 quarts/day. This includes any type of fluid such as water, coffee and lemonade which have been shown to have a beneficial effect with the exception of grapefruit juice and soda. This will help produce less concentrated urine and ensure a good urine volume of at least 2.5L/day Limit foods with high oxalate content Spinach, many berries, chocolate, wheat bran, nuts, beets, tea and rhubarb should be eliminated from your diet intake Eat enough dietary calcium Three servings of dairy per day will help lower the risk of calcium stone formation. Eat with meals. Avoid extra calcium supplements Calcium supplements should be individualized by your physician and registered kidney dietitian Eat a moderate amount of protein High protein intakes will cause the kidneys to excrete more calcium therefore this may cause more stones to form in the kidney Avoid high salt intake High sodium intake increases calcium in the urine which increases the chances of developing stones Low salt diet is also important to control blood pressure. Avoid high doses of vitamin C supplements It is recommend to take 60mg/day of vitamin C based on the [place] Dietary Reference Intake Excess amounts of 1000mg/day or more may produce more oxalate in the body I spent a total of 36 minutes on the date of the service which included preparing to see the patient, [id number] patient care, completing clinical documentation, performing a medically appropriate examination, counseling and educating the patient/family/caregiver and ordering medications, tests, or procedures. Everette Cross DNP, [place] Department of Urology [facility] documented in this encounter [facility] 09-11-2023 Note HNO ID: [id number] Author: TIFFANY TA PA-C Service: ? Author Type: Physician Insurance Checker Type: Progress Notes Filed: 09/11/2023 14:11 Note Text: This note was created using eCurvriter. Subjective Waldo Zee is a 63 year old male. HPI Presents with urinary frequency and dysuria for a week. He thinks he had passed the stone initially. He has had kidney stones several times before. He had to have lithotripsy last year for 1 that was 10 mm. He went to make sure there was not another stone stuck. He has had some mild flank pain. No vomiting. No fever. There has been blood in urine. Review of Systems Genitourinary: Positive for dysuria, flank pain, frequency, hematuria, testicular pain and urgency. Negative for penile discharge and penile pain. All other systems reviewed and are negative. PAST MEDICAL HISTORY Diagnosis Date Coronary artery disease Diabetes (HCC) Esophageal reflux Fibromyalgia Glaucoma Hypertension Kidney stone Kidney stones 2022 Non-STEMI (non-ST elevated myocardial infarction) (HCC) 10/24/2018 Other and unspecified hyperlipidemia Rectal cancer (HCC) Diagnostic laparoscopy, open low anterior rectal and sigmoid resection, mobilization of splenic flexure, flexible sigmoidoscopy, diverting loop ileostomy 07/2017 Thyroid disease Current Outpatient Medications Medication Sig Dispense Refill metFORMIN (GLUCOPHAGE) 500 mg tablet Take 2 pills with breakfast and 1 pill with dinner [address] (PROTONIX) 40 mg tablet Take 1 tablet by mouth once daily. 90 tablet 3 metoprolol tartrate, short acting, (LOPRESSOR) 25 mg tablet Takes half of pill twice daily 90 tablet 3 ergocalciferol 50,000 unit capsule (VITAMIN D2, DRISDOL) Take 1 capsule by mouth one time a week. 12 capsule 3 levothyroxine (LEVOXYL) 50 mcg tablet Take 1 tablet by mouth once daily. Take on empty stomach. For Thyroid 90 tablet 3 tamsulosin (FLOMAX) 0.4 mg Take 1 capsule by mouth daily at bedtime. (Patient taking differently: Take 0.4 mg by mouth once daily as needed.) 90 capsule 3 losartan (COZAAR) 25 mg tablet Take 1 tablet by mouth once daily. 90 tablet 3 nitroglycerin sublingual (NITROQUICK) 0.4 mg SL tablet Dissolve 1 tablet under the tongue every 5 minutes as needed for Chest Pain. 1 Bottle of 25 2 COMPOUNDED PRESCRIPTION Diabetic arch supports Dx: E11.9 M72.2 2 Each 0 aspirin 81 mg chewable tablet Take 1 tablet by mouth once daily. 90 tablet 3 multivitamin tablet Take 1 tablet by mouth once daily. cetirizine (ZYRTEC) 10 mg tablet Take 10 mg by mouth once daily as needed for cold/allergy symptoms. acetaminophen (TYLENOL) 500 mg tablet Take 500 mg by mouth every 8 hours as needed. latanoprost (XALATAN) 0.005 % ophthalmic solution Use 1 Drop in both eyes daily at bedtime. lactulose (ENULOSE) 10 gram/15 mL solution Take 30 mL by mouth twice daily. (Patient not taking: Reported on 08/23/2023) 237 mL 1 No current facility-administered medications for this visit. PAST SURGICAL HISTORY Procedure Laterality Date ABDOMINAL SURGERY HX CARDIAC CATH 10/24/2018 [facility] with stent placement COLON SURGERY HX COLONOSCOPY FLX DX W/COLLJ SPEC WHEN PFRMD 06/13/2017 Colonoscopy COLONOSCOPY FLX DX W/COLLJ SPEC WHEN PFRMD 05/29/2018 [facility] COLONOSCOPY FLX DX W/COLLJ SPEC WHEN PFRMD 06/26/2019 Colonoscopy COLONOSCOPY FLX DX W/COLLJ SPEC WHEN PFRMD 07/02/2020 Colonoscopy ESOPHAGOGASTRODUODENOSCOPY TRANSORAL DIAGNOSTIC EGD HERNIA REPAIR HX 2018 incisional LITHOLINK CKD PROGRAM 07/11/2022 PAST SURGICAL HISTORY OF 07/2017 Diagnostic laparoscopy, open low anterior rectal and sigmoid resection, mobilization of splenic flexure, flexible sigmoidoscopy, diverting loop ileostomy PAST SURGICAL HISTORY OF 11/05/2017 ileostomy reversal PSA (EXTERNAL) 06/14/2015 normal (0.76) [facility] REMOVAL OF KIDNEY STONE 2022 FAMILY HISTORY Adopted: Yes Problem Relation Age of Onset Hypertension Mother other (auto immune hepatitis) Mother other (unknown) Father Diabetes Maternal Grandmother None Maternal Grandfather other (unknown) Paternal Grandmother other (unknown) Paternal Grandfather None Daughter other (Other) Sister blood clot 1/2 sister other (hormone issues) Daughter Social History Tobacco Use Smoking status: Former Types: Cigars Smokeless tobacco: Never Tobacco comments: Pt will have an occassional cigar.- done with cigars Vaping Use Vaping Use: Never used Substance Use Topics Alcohol use: Not Currently Comment: bourbon every two to three weeks Drug use: No Objective BP 128/72 Pulse 76 Temp 36.2 ?C (97.1 ?F) Resp 16 Wt 114.8 kg (253 lb) SpO2 98% BMI 35.29 kg/m? Physical Exam Vitals reviewed. Constitutional: General: He is not in acute distress. Appearance: Normal appearance. HENT: Head: Normocephalic and atraumatic. Cardiovascular: Rate and Rhythm: Normal rate and regular rhythm. Hea (more content not included)... [facility] 08-24-2023 Telephone encounter Note Patient notified [facility] 08-24-2023 Miscellaneous Notes Patient notified He should check with prescribing physician regarding the metformin, all other meds can take as usual. Anything that he has to take in the morning, can take with tiny sip of water morning of procedure 08/31/2023 COLON/EGD ASC Patient asking in regards to what medications he can and cannot take prior to procedure Please advise Britney Leung Bundle Clerk Regla please place orders documented in this encounter [facility] 08-24-2023 Telephone encounter Note He should check with prescribing physician regarding the metformin, all other meds can take as usual. Anything that he has to take in the morning, can take with tiny sip of water morning of procedure [facility] Work Phone: 08-23-2023 Telephone encounter Note 08/31/2023 COLON/EGD ASC Patient asking in regards to what medications he can and cannot take prior to procedure Please advise Britney Leung Bundle Clerk Regla please place orders [facility] 06-27-2023 Miscellaneous Notes Patient calls and notified of new order. Requesting to receive at appointment on 08/03/[address] Salgado. Added to OV note. Marielle Baker RN Left a message for pt to call the office and ask to speak to a nurse. Lea Hamilton LPN ASSESSMENT/PLAN: 1. Need for vaccination - ICD9: V05.9, ICD10: Z23 - TDAP VACCINE, AGE 7+ YR (ADACEL, BOOSTRIX) Don Salgado MD Pt called and his daughter is having a baby and was instructed to try get a whooping cough vaccine. Pt asking if he can get this from your office or where does her need to go to get this. Please advise pt. Lea Hamilton LPN documented in this encounter [facility] 06-01-2023 Miscellaneous Notes TC to patient to verify that he received order. Patient states he has not and is asking that the order be resent through [facility] message. Offered to print and mail to patients home address but patient declines, stating he wants it through [facility]. Completed as requested. Nothing further at this time. MARISABEL Stewart Order is placed Amada Muro APRN.CNP Patient telephoned. Patient states he is referring to the arch supports he's gotten previously. He says the burning has not gotten any worse, has subsided some since his blood sugars are stable. Sherine Moran LPN Is this for the burning of his feet that was discussed at last visit or for other reason? Are the inserts he referred to previous arch supports? Thank you Amada Muro APRN.CNP Patient calling and asking if Amada Muro CNP would place order for him to have foot arch supports? Order pended- adjust as necessary. Patient asks that the order be placed in MyChart. If provider unable to place order, pt asking if he needs to go through Podiatry? If so, pt needs referral placed. Please call patient if unable to place arch support order, or with any updates. Thank you. documented in this encounter [facility] 05-28-2023 Miscellaneous Notes Please seen PCP phone encounter from 05/28/2023. Beatrice Schreiber LPN Waldo called. He would like to speak with someone in Dr. Lowe's office regarding orthotics, he is looking for a specific type and is not sure if the office carries them or if they can order them. Mitzi Emdonds RN documented in this encounter [facility] 05-04-2023 History of Present illness Narrative CC: Patient presents with: Pain (foot): B/L feet pain x 1 week HPI Waldo Zee is a 62 year old male who presents today for follow up to review lab work but also with feet pain. Has had burning to bottom of bilateral feet for the past week but put on new boots today with inserts and they are feeling better but still with an abnormal numb sensation. Denies any lower back pain, injury, edema, shortness, of breath, or chest pain. HTN/CAD with stent placement a few years/HLD: Mr. Zee indicates that he is feeling well and denies any symptoms referable to elevated blood pressure. Specifically denies headache, chest pain, palpitations, dyspnea, and peripheral edema. Patient denies any side effects of his medication(s) and is compliant with their regimen. Does not tolerate any statin therapy and does not want to consider any other cholesterol lowering options. He does not check BP's generally. Waldo denies regular aerobic exercise but is in his garden and doing yardwork every day and in winter goes to the gym.. He watches his diet for sodium, low fat and low cholesterol some of the time. Goes to [facility] and had recent unconcerning routine visit. Last 3 Encounter BP Readings: Date: BP: 05/04/2023 130/78 12/14/2022 132/88 08/22/2022 138/90 DIABETES MELLITUS: Mr. Zee denies excessive thirst or increased frequency of urination, chest pain or dyspnea , new or unusual visual symptoms, low sugar/hypoglycemic reactions, weight loss/gain, lightheadedness/dizziness, and bowel changes/loose stools. Follows a diabetic diet some of the time. He is compliant with medication(s) and is tolerating med(s) without any side effects. He reports checking his glucose on a infrequent to not at all basis schedule with sugars in the fasting 110s range but has seen in the 150s and has only been checking over the past month. Patient's last HgA1C was Hemoglobin A1C (%) Date Value 05/03/2023 7.2 11/23/2021 7.9 12/22/2020 7.9 05/11/2020 7.3 Hemoglobin A1C (POCT) (%) Date Value 07/29/2021 7.1 ) Last Ophthalmology exam was within the past 6 months REVIEW OF SYSTEMS General: no fevers, no chills, no night sweats, no recurrent infections, no change in appetite, no change in energy, and no significant changes in weight Respiratory: no cough, no wheezing, no shortness of breath, no hemoptysis Cardiovascular: no chest pain, no chest pressure, no palpitations, and no swelling Neurologic: No headache, weakness, dizziness, memory loss, syncope. PAST MEDICAL HISTORY Diagnosis Date Coronary artery disease Diabetes (HCC) Esophageal reflux Fibromyalgia Glaucoma Kidney stone Non-STEMI (non-ST elevated myocardial infarction) (HCC) 10/24/2018 Other and unspecified hyperlipidemia Rectal cancer (HCC) Diagnostic laparoscopy, open low anterior rectal and sigmoid resection, mobilization of splenic flexure, flexible sigmoidoscopy, diverting loop ileostomy 07/2017 PAST SURGICAL HISTORY Procedure Laterality Date CARDIAC CATH 10/24/2018 [facility] with stent placement COLONOSCOPY FLX DX W/COLLJ SPEC WHEN PFRMD 06/13/2017 Colonoscopy COLONOSCOPY FLX DX W/COLLJ SPEC WHEN PFRMD 05/29/2018 Colonoscopy COLONOSCOPY FLX DX W/COLLJ SPEC WHEN PFRMD 06/26/2019 Colonoscopy COLONOSCOPY FLX DX W/COLLJ SPEC WHEN PFRMD 07/02/2020 Colonoscopy ESOPHAGOGASTRODUODENOSCOPY TRANSORAL DIAGNOSTIC EGD HERNIA REPAIR 2018 incisional LITHOLINK CKD PROGRAM 07/11/2022 PAST SURGICAL HISTORY OF 07/2017 Diagnostic laparoscopy, open low anterior rectal and sigmoid resection, mobilization of splenic flexure, flexible sigmoidoscopy, diverting loop ileostomy PAST SURGICAL HISTORY OF 11/05/2017 ileostomy reversal PSA (EXTERNAL) 06/14/2015 normal (0.76) [facility] ALLERGIES Dust Mites MEDICATIONS metFORMIN (GLUCOPHAGE) 500 mg tablet Take 1 tablet by mouth twice daily with meals. pantoprazole DR (PROTONIX) 40 mg tablet Take 1 tablet by mouth once daily. metoprolol tartrate, short acting, (LOPRESSOR) 25 mg tablet Takes half of pill twice daily ergocalciferol 50,000 unit capsule (VITAMIN D2, DRISDOL) Take 1 capsule by mouth one time a week. levothyroxine (LEVOXYL) 50 mcg tablet Take 1 tablet by mouth once daily. Take on empty stomach. For Thyroid tamsulosin (FLOMAX) 0.4 mg Take 1 capsule by mouth daily at bedtime. oxycodone HCl (OXYCODONE ORAL) Take by mouth. (Patient not taking: No sig reported) tamsulosin (FLOMAX) 0.4 mg Take 1 capsule by mouth daily at bedtime for 7 days. montelukast (SINGULAIR) 10 mg tablet Take 1 tablet by mouth daily at bedtime. albuterol HFA (PROVENTIL HFA, VENTOLIN HFA) 90 mcg/actuation inhaler Inhale 2 Puffs as instructed every 6 hours as needed for wheezing/shortness of breath. lactulose (ENULOSE) 10 gram/15 mL solution Take 30 mL by mouth twice daily. (Patient taking differently: Take 20 g by mouth twice daily. Takes as needed) fluticasone (FLONASE) 50 mcg/actuation nasal spray Use 2 Sprays in each nostril once daily. Rinse mouth after use. losartan (COZAAR) 25 mg tablet Take 1 tablet by mouth once daily. nitroglycerin sublingual (NITROQUICK) 0.4 mg SL tablet Dissolve 1 tablet under the tongue every 5 minutes as needed for Chest Pain. docusate sodium (COLACE) 100 mg capsule Take 1 capsule by mouth twice daily. (Patient taking differently: Take 100 mg by mouth twice daily. Takes as needed) COMPOUNDED PRESCRIPTION Diabetic arch supports Dx: E11.9 M72.2 aspirin 81 mg chewable tablet Take 1 tablet by mouth once daily. multivitamin tablet Take 1 tablet by mouth once daily. cetirizine (ZYRTEC) 10 mg tablet Take 10 mg by mouth once daily. acetaminophen (TYLENOL) 500 mg tablet Take 500 mg by mouth every 8 hours as needed. latanoprost (XALATAN) 0.005 % ophthalmic solution Use 1 Drop in both eyes daily at bedtime. FAMILY HISTORY Adopted: Yes Problem Relation Age of Onset Hypertension Mother other (auto immune hepatitis) Mother other (unknown) Father Diabetes Maternal Grandmother None Maternal Grandfather other (unknown) Paternal Grandmother other (unknown) Paternal Grandfather None Daughter other (Other) Sister blood clot 1/2 sister other (hormone issues) Daughter Social History Tobacco Use Smoking status: Former Types: Cigars Quit date: 02/16/1988 Years since quittin.2 Smokeless tobacco: Never Tobacco comments: Pt will have an occassional cigar.- done with cigars Vaping Use Vaping Use: Never used Substance Use Topics Alcohol use: Yes Comment: bourbon every two to three weeks Drug use: No PHYSICAL EXAM BP 130/78 Pulse 80 Resp 16 Wt 117 kg (258 lb) SpO2 97% BMI 35.98 kg/m General Appearance: well appearing, in no acute distress, alert Pysch: mood and affect broad and appropriate Skin: Skin color, texture, turgor normal for age; Eyes: conjunctiva pink and moist, no icterus, sclera white, non-injected Back: No pain to palpation, Full and painless ROM including flexion, extension, lateral side bending and rotation, Reflexes 2+ and symmetric Lungs: Lungs clear to auscultation. No wheezing, rhonchi, rales. Heart: RRR without murmur, gallop, or rubs. No ectopy Extremities: No deformities, edema, skin discoloration, clubbing or cyanosis. Good capillary refill. Neurological: Gait normal. Reflexes normal and symmetric. Sensation intact. Feet:Shoes and socks removed, normal distal pulses, sensitive to 10 gm monofilament, and vibratory perception normal Health maintenance reviewed with patient: HIV Screening Never done Urine Albumin:Creatinine Ratio due on 05/24/2020 Diabetic Foot Exam due on 05/26/2020 Prostate Cancer Screening Discussion due on 06/14/2020 Hepatitis B Vaccine(1 of 3 - Risk 3-dose series) Never done Colorectal Cancer Screening due on 07/02/2023 Shingrix Vaccine(1 of 2) due on 06/22/2023 Covid-19 Vaccine(1) due on 06/22/2023 Pneumococcal Vaccine(2 - PCV) due on 06/22/2023 Influenza Vaccine(1) due on 02/10/2024 Dilated Retinal Exam due on 09/14/2023 HbA1C due on 11/01/2023 Annual PCP Team Chronic Disease Visit due on 12/15/2023 LDL Cholesterol due on 05/03/2024 DTaP,Tdap,Td Vaccine(5 - Td or Tdap) due on 12/24/2024 Depression Assessment Completed Hepatitis C Screening Completed HPV Vaccine Aged Out DATA REVIEWED: Most recent labs ASSESSMENT/PLAN: 1. Type 2 diabetes mellitus without complication, without long-term current use of insulin (HCC) - ICD9: 250.00, ICD10: E11.9 (primary diagnosis) - Improving control - Continue current medications except increasing metformin to 2 tabs in AM and 1 in PM - Blood glucose monitoring on a once daily schedule - Counseled on healthy diet and regular exercise - Discussed need for and benefit of weight loss. BMI 35.98 kg/(m^2) - ALBUMIN/CREAT RATIO RND UR - HGB A1C 2. Burning sensation of feet - ICD9: 782.0, ICD10: R20.8 - probable neuropathy from elevated glucose. Assessment completely normal. Discussed getting a lumbar xray and EMG but patient declined at this time. Will contact if symptoms do not continue to improve for further evaluation - need to improve glucose control - VITAMIN B12 BLOOD 3. Primary hypertension - ICD9: 401.9, ICD10: I10 - Controlled - Continue current medications - Recommend home blood pressure monitoring, to bring results to next visit - Encouraged sodium restriction, DASH or Mediterranean diet - Recommend regular aerobic exercise 4. Coronary artery disease involving [place] coronary artery of [place] heart without angina pectoris - ICD9: 414.01, ICD10: I25.10 - asymptomatic at this time - discussed in detail with his diabetes, HTN, and uncontrolled cholesterol level his is very high risk for heart attack and stroke. Discussed statin medication is known to decrease this risk and we can try different statin therapy, low dose, every other day but patient declining at this time - discussed importance of healthy low fat diet, increasing exercise and weight loss to lower cholesterol. - BASIC METABOLIC PNL - CBC 5. Mixed hyperlipidemia - ICD9: 272.2, ICD10: E78.2 aortic stenosis above - LIPID PANEL BASIC Prescription instructions reviewed with patient as applicable. Potential red flag symptoms discussed with the patient. Reviewed appropriate action plan to take if red flag symptoms occur. Patient agreeable to treatment plan. Amada Muro APRN.CNP documented in this encounter [facility] 01-31-2023 Miscellaneous Notes Left message for return call. Please call patient and let him know it's OK to start with imodium. If it persists past a week then we probably need to do a further workup (formal visit w/ labs, stool testing, etc). If it's overly bothersome in the interim, advise eval in express care. Or if more severe, doubled over in abdominal pain then needs ER evaluation sooner. Rachel Guthrie PA-C Pt calls and states the following: DIARRHEA DIARRHEA SEVERITY: multiple times daily ONSET: 01/27/23 BM CONSISTENCY: watery since yesterday VOMITING: No ABDOMINAL PAIN: No ABDOMINAL PAIN SEVERITY: NA ORAL INTAKE: Pushing fluids HYDRATION: Well hydrated per pt EXPOSURE: Unknown ANTIBIOTIC USE: No OTHER SYMPTOMS: No other sx. Was constipated last week then started with diarrhea 3 days ago. Taking rolaids. Pt asking if he should try Immodium? : NA. Please advise. Elly Santana LPN documented in this encounter [facility] 01-15-2023 Miscellaneous Notes Patient has been identified by name and date of : No Patient phones for refill(s): Requested Prescriptions Pending Prescriptions Disp Refills metFORMIN (GLUCOPHAGE) 500 mg tablet 180 tablet 3 Sig: Take 1 tablet by mouth twice daily with meals. pantoprazole DR (PROTONIX) 40 mg tablet 90 tablet 3 Sig: Take 1 tablet by mouth once daily. Date of last office visit in primary care: 12/14/22 Last 2 Encounter Wt Readings: Date: Wt: 12/14/2022 119.7 kg (264 lb) 08/22/2022 121.1 kg (267 lb) Previous labs/tests for medication: Diabetes: Hemoglobin A1C (%) Date Value 11/23/2021 7.9 12/22/2020 7.9 05/11/2020 7.3 Hemoglobin A1C (POCT) (%) Date Value 07/29/2021 7.1 Please advise. Thank you. Loli Peters LPN Patient has been identified by name and date of : Yes Requested Prescriptions Pending Prescriptions Disp Refills metFORMIN (GLUCOPHAGE) 500 mg tablet 180 tablet 3 Sig: Take 1 tablet by mouth twice daily with meals. pantoprazole DR (PROTONIX) 40 mg tablet 90 tablet 3 Sig: Take 1 tablet by mouth once daily. RX INSTRUCTIONS: Patient aware RX escripted to mail away pharmacy. No need to notify patient. Priyanka Wasserman Pss documented in this encounter [facility] 12-14-2022 History of Present illness Narrative Reason for Visit Patient presents with: Back Pain: Lower back pain x 4-5 days Recheck: Appointment moved up from 12/20 Waldo Zee is a 62 year old male who presents here today for Above Complaints.. Health Maintenance HIV SCREENING URINE ALBUMIN:CREATININE RATIO DIABETIC FOOT EXAM PROSTATE CANCER SCREENING DISCUSSION HBA1C DEPRESSION ASSESSMENT LDL CHOLESTEROL HPI Does not want to take any medication for lipids, infact does not want any more suggestions for medication. He thinks he is taking enough and does not need any added. He has been going to the gym in the winter, did it around 3 to 5 times. He lifts weights, and when he enters the gym he does 5 mins of cardio to 15 mins. Currently he is working in his garden. Has a 30 by 60 feet garden , he tills, beds and grows potatoes, tomatoes, green beans, peppers, and some of the stuff they do they like better than other stuff. Diabetes Mellitus : hba1c needs to be done, has cut down his coke to 1 can a day, drinking sugar free lemonade, drinks some sort of drink a day, he does not check his sugars unless he has symptoms, when ever he checks it, it is around 115. he is watching what he eats, but eats a lot of chocolate- he eats a couple pieces of chocolate with his coffee, he usually eats minis, after dinner he eats some sort of sweet..he eats something fast food - [employer] at [employer]... BF is usually cereal and milk. He has been working to eat less dessert. he watches but limits his sugars recently, he is very active in the yard. he does not want to take any more pills, period, he will not consider any recommendations from us with regards to addition of any medication. Hardest thing to control is sweets Kidney stones: had lithotripsy/laser removal of a 1 cm stone, last year. He has done fine since. He is here because he has pain in the cv area. B/l. He does have remaining stones which may be causing some pain. UA today is completely normal. He did work the [employer] saw last week. Checks him bp at home occacionally and they are always high at that time No problem-specific Assessment & Plan notes found for this encounter. PAST MEDICAL HISTORY Diagnosis Date Coronary artery disease Diabetes (HCC) Esophageal reflux Fibromyalgia Glaucoma Kidney stone Non-STEMI (non-ST elevated myocardial infarction) (HCC) 10/24/2018 Other and unspecified hyperlipidemia Rectal cancer (HCC) Diagnostic laparoscopy, open low anterior rectal and sigmoid resection, mobilization of splenic flexure, flexible sigmoidoscopy, diverting loop ileostomy 07/2017 PAST SURGICAL HISTORY Procedure Laterality Date CARDIAC CATH 10/24/2018 [facility] with stent placement COLONOSCOPY FLX DX W/COLLJ SPEC WHEN PFRMD 06/13/2017 Colonoscopy COLONOSCOPY FLX DX W/COLLJ SPEC WHEN PFRMD 05/29/2018 Colonoscopy COLONOSCOPY FLX DX W/COLLJ SPEC WHEN PFRMD 06/26/2019 Colonoscopy COLONOSCOPY FLX DX W/COLLJ SPEC WHEN PFRMD 07/02/2020 Colonoscopy ESOPHAGOGASTRODUODENOSCOPY TRANSORAL DIAGNOSTIC EGD HERNIA REPAIR HX 2018 incisional LITHOLINK CKD PROGRAM 07/11/2022 PAST SURGICAL HISTORY OF 07/2017 Diagnostic laparoscopy, open low anterior rectal and sigmoid resection, mobilization of splenic flexure, flexible sigmoidoscopy, diverting loop ileostomy PAST SURGICAL HISTORY OF 11/05/2017 ileostomy reversal PSA (EXTERNAL) 06/14/2015 normal (0.76) [facility] FAMILY HISTORY Adopted: Yes Problem Relation Age of Onset Hypertension Mother other (auto immune hepatitis) Mother other (unknown) Father Diabetes Maternal Grandmother None Maternal Grandfather other (unknown) Paternal Grandmother other (unknown) Paternal Grandfather None Daughter other (Other) Sister blood clot 1/2 sister other (hormone issues) Daughter Social History Tobacco Use Smoking status: Former Types: Cigars Quit date: 02/16/1988 Years since quittin.8 Smokeless tobacco: Never Tobacco comments: Pt will have an occassional cigar.- done with cigars Vaping Use Vaping Use: Never used Substance Use Topics Alcohol use: Yes Comment: bourbon every two to three weeks Drug use: No Past medical history, appointments, medications, allergies reviewed. Pertinent Lab/Diagnostic Studies are reviewed and discussed today Current Outpatient Medications: levothyroxine (LEVOXYL) 50 mcg tablet tamsulosin (FLOMAX) 0.4 mg metoprolol tartrate, short acting, (LOPRESSOR) 25 mg tablet metFORMIN (GLUCOPHAGE) [address] (PROTONIX) 40 mg tablet ergocalciferol 50,000 unit capsule (VITAMIN D2, DRISDOL) lactulose (ENULOSE) 10 gram/15 mL solution losartan (COZAAR) 25 mg tablet nitroglycerin sublingual (NITROQUICK) 0.4 mg SL tablet docusate sodium (COLACE) 100 mg capsule COMPOUNDED PRESCRIPTION aspirin 81 mg chewable tablet multivitamin tablet cetirizine (ZYRTEC) 10 mg tablet acetaminophen (TYLENOL) 500 mg tablet latanoprost (XALATAN) 0.005 % ophthalmic solution oxycodone HCl (OXYCODONE ORAL) tamsulosin (FLOMAX) 0.4 mg montelukast (SINGULAIR) 10 mg tablet albuterol HFA (PROVENTIL HFA, VENTOLIN HFA) 90 mcg/actuation inhaler fluticasone (FLONASE) 50 mcg/actuation nasal spray Review of Systems CONSTITUTIONAL: No fevers, chills night sweats, unintended weight loss CARDIOVASCULAR: No chest pain, dyspnea, palpitations, orthopnea, PND, ankle edema. PULM: No dyspnea, unexplained cough. GI: No dysphagia/odynophagia, problematic reflux, constipation, diarrhea, changes in stool habits, hematochezia, melena. : No new urinary complaints, including dysuria, gross hematuria or pyuria. NEURO: No new balance problems, peripheral weakness/paresthesias or numbness of concern. Physical Exam BP 132/90 Pulse 86 Temp 36.2 C (97.2 F) Resp 16 Wt 119.7 kg (264 lb) SpO2 98% BMI 36.82 kg/m General appearance: Well appearing, alert, in no acute distress, well nourished. Skin: examined abdominal skin , there were no abnormalities but patient did have a small pin point hair follicle erythema Head: Normocephalic, no masses, lesions, tenderness or abnormalities Eyes: Anicteric sclera. Pupils are equally round and reactive to light. Extraocular movements are intact. Lungs: Lungs clear to auscultation. No wheezing, rhonchi, rales Heart: RRR without murmur, gallop, or rubs. Extremities: No deformities, edema, skin discoloration, clubbing or cyanosis. Good capillary refill. ASSESSMENT/PLAN: 1. Acute bilateral low back pain without sciatica - ICD9: 724.2, 338.19, ICD10: M54.50 (primary diagnosis) Likely mechanical from his working out side in his garden , yard and with his trees - UA DIP, URINE (POC) 2. Type 2 diabetes mellitus without complication, without long-term current use of insulin (HCC) - ICD9: 250.00, ICD10: E11.9 We need to check his hba1c today He notes doing better with diet and exercise 3. Coronary artery disease involving [place] coronary artery of [place] heart without angina pectoris - ICD9: 414.01, ICD10: I25.10 Stable, no chest pain or sob 4. Mixed hyperlipidemia - ICD9: 272.2, ICD10: E78.2 Refused statin medication Bettye Powell MD documented in this encounter [facility] 12-11-2022 Miscellaneous Notes Patient has been identified by name and date of : Yes Patient phones for refill(s): Requested Prescriptions Pending Prescriptions Disp Refills levothyroxine (LEVOXYL) 50 mcg tablet 90 tablet 3 Sig: Take 1 tablet by mouth once daily. Take on empty stomach. For Thyroid Date of last office visit in primary care: 06/22/2022 Follow-up: 12/20/2022 Last 2 Encounter Wt Readings: Date: Wt: 08/22/2022 121.1 kg (267 lb) 06/26/2022 118.3 kg (260 lb 12.8 oz) Previous labs/tests for medication: Thyroid: TSH Date Value 11/23/2021 2.590 mIU/L 02/08/2021 1.800 uU/mL Please advise. Thank you. Elvira Medina LPN Patient has been identified by name and date of : Yes Requested Prescriptions Pending Prescriptions Disp Refills levothyroxine (LEVOXYL) 50 mcg tablet 90 tablet 3 Sig: Take 1 tablet by mouth once daily. Take on empty stomach. For Thyroid RX INSTRUCTIONS: Patient aware RX will be sent to pharmacy. No need to notify patient. Guera Delacruz [employer] documented in this encounter [facility] 08-22-2022 Instructions Pedro Ponce PA-C - 08/22/2022 8:56 AM EST DIETARY MANAGEMENT KIDNEY STONES URIC ACID STONES: Animal proteins: Meat, chicken, seafood Helpful foods: Fruit, vegetables CALCIUM OXALATE: Salt: Reduce salt in the diet No added salt. Calcium supplements: with meals to bind oxalate taken in the meal. Oxalate: See table below. AVOID greater than 500 mg vitamin C a day and TAKE vitamin B6 50 mg a day. FLUID: 3 to 4 quarts a day. AVOID grapefruit juice. PARTIAL LIST OF OXALATE CONTENT OF FOODS FOOD MG OF OXALATE (Serving Size in Parentheses) Spinach cooked 608 (1/2 cup) Rhubarb, frozen 570 (1/2 cup) Spinach, chopped raw 361 (1 cup) Green beans, steamed 45 (1 cup) Bran flakes 40 (1/2 cup) Peanuts 27 (1 oz) Potato, microwave 25 (1 medium) Celery 25 (1 stalk) Tea, brewed 18 (1 cup) Chocolate 16 (1 oz bar) Peanut butter 15 (1 Tbsp) White bread 4 (1 slice) Carrots raw 4 (1 carrot) Potato chips 3 (1 serving bag) White rice, steamed 3 (1 cup) Peaches, canned 1 (1/2 cup) Broccoli, steamed 1 (1/2 cup) Faber jelly 1 (1 Tbsp) Apple, raw 0.7 (1 fruit) Radisson flakes 0.6 (1 cup) documented in this encounter [facility] 08-22-2022 History of Present illness Narrative Images from the original note were not included. [facility] ESTABLISHED PATIENT CLINIC NOTE Some elements copied from his previous note, which have been updated where appropriate, and all reflect current medical decision making from date of this visit. SERVICE DATE: 08/22/2022 SERVICE TIME: 10:14 AM NAME: Waldo Zee CHIEF COMPLAINT: Kidney Stone post-op HISTORY OF PRESENT ILLNESS: Waldo Zee is a 62 year old Male with PMH including Multiple Kidney Stones presenting with post-op visit to discuss The Litholink testing, reviewed this with him and gave dietary restriction recommendations as well The patient reports doing well FLUIDS: Increase water intake CAFFEINE: Reduce Start dietary restrictions diet based on Litholink results LUTS: No new LUTS Other symptoms: LABS: Hematocrit (%) Date Value 06/23/2022 40.7 11/23/2021 45.2 05/11/2020 44.3 04/02/2019 41.0 06/30/2018 35.7 06/29/2018 36.6 PSA (ng/mL) Date Value 06/14/2015 0.76 No results found for: TESTOST PSA (ng/mL) Date Value 06/14/2015 0.76 Creatinine Date Value Ref Range Status 06/23/2022 0.87 0.73 - 1.22 mg/dL Final 11/23/2021 0.92 0.73 - 1.22 mg/dL Final 05/11/2020 0.95 0.73 - 1.22 mg/dL Final 04/02/2019 0.93 0.73 - 1.22 mg/dL Final MEDICATIONS: metoprolol tartrate, short acting, (LOPRESSOR) 25 mg tablet Takes half of pill twice daily metFORMIN (GLUCOPHAGE) 500 mg tablet Take 1 tablet by mouth twice daily with meals. pantoprazole DR (PROTONIX) 40 mg tablet Take 1 tablet by mouth once daily. ergocalciferol 50,000 unit capsule (VITAMIN D2, DRISDOL) Take 1 capsule by mouth one time a week. lactulose (ENULOSE) 10 gram/15 mL solution Take 30 mL by mouth twice daily. (Patient taking differently: Take 20 g by mouth twice daily. Takes as needed) levothyroxine (LEVOXYL) 50 mcg tablet Take 1 tablet by mouth once daily. Take on empty stomach. For Thyroid losartan (COZAAR) 25 mg tablet Take 1 tablet by mouth once daily. nitroglycerin sublingual (NITROQUICK) 0.4 mg SL tablet Dissolve 1 tablet under the tongue every 5 minutes as needed for Chest Pain. docusate sodium (COLACE) 100 mg capsule Take 1 capsule by mouth twice daily. (Patient taking differently: Take 100 mg by mouth twice daily. Takes as needed) COMPOUNDED PRESCRIPTION Diabetic arch supports Dx: E11.9 M72.2 aspirin 81 mg chewable tablet Take 1 tablet by mouth once daily. multivitamin tablet Take 1 tablet by mouth once daily. cetirizine (ZYRTEC) 10 mg tablet Take 10 mg by mouth once daily. acetaminophen (TYLENOL) 500 mg tablet Take 500 mg by mouth every 8 hours as needed. latanoprost (XALATAN) 0.005 % ophthalmic solution Use 1 Drop in both eyes daily at bedtime. tamsulosin (FLOMAX) 0.4 mg Take 1 capsule by mouth daily at bedtime. oxycodone HCl (OXYCODONE ORAL) Take by mouth. (Patient not taking: Reported on 08/22/2022) tamsulosin (FLOMAX) 0.4 mg Take 1 capsule by mouth daily at bedtime for 7 days. montelukast (SINGULAIR) 10 mg tablet Take 1 tablet by mouth daily at bedtime. albuterol HFA (PROVENTIL HFA, VENTOLIN HFA) 90 mcg/actuation inhaler Inhale 2 Puffs as instructed every 6 hours as needed for wheezing/shortness of breath. fluticasone (FLONASE) 50 mcg/actuation nasal spray Use 2 Sprays in each nostril once daily. Rinse mouth after use. PAST MEDICAL HISTORY: PAST MEDICAL HISTORY Diagnosis Date Coronary artery disease Diabetes (HCC) Esophageal reflux Fibromyalgia Glaucoma Kidney stone Non-STEMI (non-ST elevated myocardial infarction) (HCC) 10/24/2018 Other and unspecified hyperlipidemia Rectal cancer (HCC) Diagnostic laparoscopy, open low anterior rectal and sigmoid resection, mobilization of splenic flexure, flexible sigmoidoscopy, diverting loop ileostomy 07/2017 PAST SURGICAL HISTORY: PAST SURGICAL HISTORY Procedure Laterality Date CARDIAC CATH 10/24/2018 [facility] with stent placement COLONOSCOPY FLX DX W/COLLJ SPEC WHEN PFRMD 06/13/2017 Colonoscopy COLONOSCOPY FLX DX W/COLLJ SPEC WHEN PFRMD 05/29/2018 Colonoscopy COLONOSCOPY FLX DX W/COLLJ SPEC WHEN PFRMD 06/26/2019 Colonoscopy COLONOSCOPY FLX DX W/COLLJ SPEC WHEN PFRMD 07/02/2020 Colonoscopy ESOPHAGOGASTRODUODENOSCOPY TRANSORAL DIAGNOSTIC EGD HERNIA REPAIR HX 2018 incisional LITHOLINK CKD PROGRAM 07/11/2022 PAST SURGICAL HISTORY OF 07/2017 Diagnostic laparoscopy, open low anterior rectal and sigmoid resection, mobilization of splenic flexure, flexible sigmoidoscopy, diverting loop ileostomy PAST SURGICAL HISTORY OF 11/05/2017 ileostomy reversal PSA (EXTERNAL) 06/14/2015 normal (0.76) [facility] FAMILY HISTORY: FAMILY HISTORY Adopted: Yes Problem Relation Age of Onset Hypertension Mother other (auto immune hepatitis) Mother other (unknown) Father Diabetes Maternal Grandmother None Maternal Grandfather other (unknown) Paternal Grandmother other (unknown) Paternal Grandfather None Daughter other (Other) Sister blood clot 1/2 sister other (hormone issues) Daughter SOCIAL HISTORY: Social Connections: Not on file REVIEW OF SYSTEMS: GENERAL: No fever, chills, weight loss, or fatigue. All other systems reviewed and are negative PHYSICAL EXAMINATION: Blood pressure 138/90, pulse 82, temperature 36.3 C (97.3 F), temperature source Temporal, resp. rate 14, height 180.3 cm (5' 11), weight 121.1 kg (267 lb), SpO2 98 %. GENERAL: WNL nutrition, no deformities, healthy appearing PROBLEM LIST REVIEW: Yes LABS: Results for orders placed or performed in visit on 08/22/22 UA DIP, URINE (POC) Result Value Ref Range GLUCOSE UA (POCT) Negative Negative mg/dL BILIRUBIN UA (POCT) Negative Negative KETONE UA (POCT) Negative Negative mg/dL SPECIFIC GRAVITY UA (POCT) 1.020 1.005 - 1.030 HEMOGLOBIN/BLOOD UA (POCT) Trace-intact (A) Negative PH UA (POCT) 6.0 4.5 - 8.0 PROTEIN UA (POCT) Negative Negative mg/dL UROBILINOGEN UA (POCT) 0.2 Normal E.U./dL NITRITE UA (POCT) Negative Negative LEUKOCYTES UA (POCT) Negative Negative COLOR UA (POCT) Yellow CLARITY UA (POCT) Clear PROCEDURES: PVR: 0 ml IMAGING: IMPRESSION/PLAN: 62 year old male with . 1. Kidney stones - ICD9: 592.0, ICD10: N20.0 - UA DIP, URINE (POC) - POST VOID RESIDUAL > Reviewed Litholink with patient and printed this out for him > reviewed highlighted results and gave dietary recommendations > Added dietary restriction information on Patient Instructions > Refilled Flomax and will stay on due to multiple stones already formed in bilateral kidneys > 3 mo. Appt w/ BMICHAEL Strange MT, PA-C for new Rx Follow-up MICHAEL Modi MT, PA-C Verified name and date of . CC Post Void Residual HPI: Waldo Zee is a 62 year old male. The patient is here now for an appointment with MICHAEL Modi MT, PA-COV. Procedure: Explained procedure to patient and verbalizes understanding. Performed a PVR. Patient urinated and instructed to empty bladder as much as possible just prior to having PVR done using bladder ultrasound scanner. Results of scan: 0 mL The patient tolerated the procedure well. Plan: Appointment with Pedro. documented in this encounter [facility] 07-12-2022 Miscellaneous Notes Litholink faxed. Will call pt to schedule with Pedro Ponce. Michelle GAGNON Patient needs Litholink and follow-up with Pedro Ponce in [place] documented in this encounter [facility] 07-11-2022 Note HNO ID: [id number] Author: Ruiz Cruz APRN.SAUSAGE WRAPPER Service: Nursing Author Type: Nurse Assistant Field Hockey Coach Type: Anesthesia Procedure Notes Filed: 07/11/2022 1:04 PM Note Text: ANESTHESIOLOGY PROCEDURE NOTE Airway General Information Procedure Start Time/Medication Administration: 07/11/2022 12:59 PM Patient location during procedure: OR Timeout Performed Pre-procedure: timeout performed Consent Obtained: Yes Patient identity confirmed: arm band Staffing SAUSAGE WRAPPER: Ruiz Cruz APRN.SAUSAGE WRAPPER Performed by: JAY Indications and Patient Condition Indications for airway management: anesthesia Preoxygenated: yes anesthesia circuit Patient position: sniffing Method: asleep Cricoid Pressure: No Manual In-Line Stabilization: No Difficult Mask: No Final Airway Details Final airway type: supraglottic airway Number of attempts at approach: 1 Final Supraglottic Airway: i-gel Size 5 Seal Adequate: yes SIGNATURE: Ruiz Cruz APRN.SAUSAGE WRAPPER PATIENT NAME: Waldo Zee DATE: July 11, 2022 TIME: 1:04 PM CSN: [id number] [facility] 06-29-2022 Miscellaneous Notes Images from the original note were not included. Lázaro Avila MD Cc: Leonor Rodarte RN Patient called to cancel 08/18 surgery. He said he is going to [facility] since it is closer. Thanks! Melissa documented in this encounter [facility] 06-28-2022 Miscellaneous Notes Pt is scheduled for C&P, Rt ULL, possible Rt stent with Dr Gallegos at [facility] on 07/11/22 @ 1:55 (11:55 arrival). Urine culture ordered to be done 07/04. Pt given date, time, prep and arrival instructions over the phone. [employer] message sent also. Mercedes GAGNON documented in this encounter [facility] 06-27-2022 Miscellaneous Notes Called and spoke with patient regarding a surgery date for Right URS. Offered first available, August [address] Allen. Patient upset he has to wait that long, but accepted appointment. He did advise he may seek care elsewhere given the wait time, informed him that while [facility] would like him to stay for care with us, he is free to look elsewhere if that is what he desires. Patient verbalized understanding. He also inquired about medications, informed him that Flomax was sent to pharmacy and he can pick that up at this time. Inquiring about refill of percocet as well, but he still has 8 let from 06/24. Did advise that given he still has 8 left, a refill must wait, advised him to update when he needs refill. He does report he is having some right flank discomfort currently, encouraged patient to take Flomax as prescribed, percocet as needs for pain and increase fluid intake. Patient verbalized understanding. Karin Nava RN June 27, 2022 12:12 PM documented in this encounter [facility] 06-27-2022 Miscellaneous Notes Patient was seen at [facility] ----- Message from Ann Emerson MD sent at 06/24/2022 3:52 AM EST ----- Pt in ED with kidney stone. Will need follow up please. documented in this encounter [facility] 06-26-2022 History of Present illness Narrative [facility] NEW PATIENT HISTORY AND PHYSICAL EXAM PATIENT INFO: Waldo Zee 62 year old REFERRING M.D.: SELF PCP: Bettye Powell MD Date of Service: June 26, 2022 This patient is self referred CHIEF COMPLAINT: Nephrolithiasis HPI: This is a 62 year old male 62-year-old male presents to the ED on 06/24/22 with complains of right flank pain for intermittently for the last several weeks. He was diagnosed with a 9 mm stone in the mid-distal right ureter on his CT scan, He had some mild right hydronephrosis He had some zev hematuria which has since resolved, In ED He denies fevers chills or sweats. He has a longstanding history of kidney stones for several years. He does not currently follow with a urologist as he states he is normally able to pass them on his own at home, he has never underwent an intervention for stones On MET with Flomax The patient complains of intermittent right flank pain, he denies fever, shaking chills, and gross hematuria at this time. IMAGING: Imaging Reviewed. Radiology report may be copied below for ease of reference. CT abdomen/pelvis o n 06/23/22 Left kidney: There are 1-2 mm calculi in the kidney. Also seen is a 8-9 mm calculus or cluster of calculi in the distal ureter resulting in mild right-sided hydronephrosis Right kidney: There are 1-5 mm calculi in the kidney. No hydronephrosis PATHOLOGY: Stone Analysis: No Urine Culture LABS: Creatinine Date Value Ref Range Status 06/23/2022 0.87 0.73 - 1.22 mg/dL Final 11/23/2021 0.92 0.73 - 1.22 mg/dL Final 05/11/2020 0.95 0.73 - 1.22 mg/dL Final 04/02/2019 0.93 0.73 - 1.22 mg/dL Final PSA (ng/mL) Date Value 06/14/2015 0.76 Recent Labs 06/23/22 1933 WBC 13.12* HB 13.2 HCT 40.7 PLT 311 NA 139 K 4.0 CHLOR 103 CO2 26 BUN 11 CREAT 0.87 GLUC 160* URINALYSIS: Specific [place], Ur Date Value Ref Range Status 06/23/2022 1.020 1.005 - 1.030 Final Glucose, Urine Date Value Ref Range Status 06/23/2022 Negative Negative Final Bilirubin, Urine Date Value Ref Range Status 06/23/2022 Negative Negative Final Ketones, Urine Date Value Ref Range Status 06/23/2022 Negative Negative Final Hemoglobin/Blood,Ur Date Value Ref Range Status 06/23/2022 2+ (A) Negative Final Protein, Urine Date Value Ref Range Status 06/23/2022 Trace (A) Negative Final Urobilinogen, Urine Date Value Ref Range Status 03/20/2013 normal Normal (<1.1) EU Final Nitrites Date Value Ref Range Status 06/23/2022 Negative Negative Final WBC, Urine Date Value Ref Range Status 06/23/2022 0-5 /HPF 0-5 /HPF Final HISTORIES PAST MEDICAL HISTORY Diagnosis Date Coronary artery disease Diabetes (HCC) Esophageal reflux Fibromyalgia Glaucoma Non-STEMI (non-ST elevated myocardial infarction) (HCC) 10/24/2018 Other and unspecified hyperlipidemia Rectal cancer (HCC) Diagnostic laparoscopy, open low anterior rectal and sigmoid resection, mobilization of splenic flexure, flexible sigmoidoscopy, diverting loop ileostomy 07/2017 PAST SURGICAL HISTORY Procedure Laterality Date ABDOMINAL SURGERY HX CARDIAC CATH 10/24/2018 [facility] with stent placement COLON SURGERY HX COLONOSCOPY FLX DX W/COLLJ SPEC WHEN PFRMD 06/13/2017 Colonoscopy COLONOSCOPY FLX DX W/COLLJ SPEC WHEN PFRMD 05/29/2018 Colonoscopy COLONOSCOPY FLX DX W/COLLJ SPEC WHEN PFRMD 06/26/2019 Colonoscopy COLONOSCOPY FLX DX W/COLLJ SPEC WHEN PFRMD 07/02/2020 Colonoscopy ESOPHAGOGASTRODUODENOSCOPY TRANSORAL DIAGNOSTIC EGD HERNIA REPAIR HX PAST SURGICAL HISTORY OF 07/2017 Diagnostic laparoscopy, open low anterior rectal and sigmoid resection, mobilization of splenic flexure, flexible sigmoidoscopy, diverting loop ileostomy PAST SURGICAL HISTORY OF 11/05/2017 ileostomy reversal PSA (EXTERNAL) 06/14/2015 normal (0.76) [facility] Social History Tobacco Use Smoking status: Former Types: Cigars Quit date: 02/16/1988 Years since quittin.3 Smokeless tobacco: Never Tobacco comments: Pt will have an occassional cigar.- done with cigars Substance Use Topics Alcohol use: Yes Comment: bourbon every two to three weeks Drug use: No ALLERGIES: ALLERGIES Allergen Reactions Dust Mites MEDICATIONS: Current Outpatient Medications Medication Sig oxyCODONE-acetaminophen (PERCOCET) 5-325 mg tablet Take 1 tablet by mouth every 6 hours as needed for pain for up to 3 days. ondansetron orally disintegrating (ZOFRAN ODT) 4 mg disintegrating tablet Take 1 tablet by mouth every 6 hours as needed for nausea/vomiting for up to 7 days. tamsulosin (FLOMAX) 0.4 mg Take 1 capsule by mouth daily at bedtime for 7 days. cephALEXin (KEFLEX) 500 mg capsule Take 1 capsule by mouth twice daily for 7 days. metoprolol tartrate, short acting, (LOPRESSOR) 25 mg tablet Takes half of pill twice daily metFORMIN (GLUCOPHAGE) 500 mg tablet Take 1 tablet by mouth twice daily with meals. pantoprazole DR (PROTONIX) 40 mg tablet Take 1 tablet by mouth once daily. montelukast (SINGULAIR) 10 mg tablet Take 1 tablet by mouth daily at bedtime. albuterol HFA (PROVENTIL HFA, VENTOLIN HFA) 90 mcg/actuation inhaler Inhale 2 Puffs as instructed every 6 hours as needed for wheezing/shortness of breath. ergocalciferol 50,000 unit capsule (VITAMIN D2, DRISDOL) Take 1 capsule by mouth one time a week. lactulose (ENULOSE) 10 gram/15 mL solution Take 30 mL by mouth twice daily. fluticasone (FLONASE) 50 mcg/actuation nasal spray Use 2 Sprays in each nostril once daily. Rinse mouth after use. levothyroxine (LEVOXYL) 50 mcg tablet Take 1 tablet by mouth once daily. Take on empty stomach. For Thyroid losartan (COZAAR) 25 mg tablet Take 1 tablet by mouth once daily. nitroglycerin sublingual (NITROQUICK) 0.4 mg SL tablet Dissolve 1 tablet under the tongue every 5 minutes as needed for Chest Pain. docusate sodium (COLACE) 100 mg capsule Take 1 capsule by mouth twice daily. (Patient not taking: No sig reported) COMPOUNDED PRESCRIPTION Diabetic arch supports Dx: E11.9 M72.2 aspirin 81 mg chewable tablet Take 1 tablet by mouth once daily. multivitamin tablet Take 1 tablet by mouth once daily. cetirizine (ZYRTEC) 10 mg tablet Take 10 mg by mouth once daily. acetaminophen (TYLENOL) 500 mg tablet Take 500 mg by mouth every 8 hours as needed. latanoprost (XALATAN) 0.005 % ophthalmic solution Use 1 Drop in both eyes daily at bedtime. No current facility-administered medications for this visit. REVIEW OF SYSTEMS General: No weight loss, malaise or fevers., SEE HPI Respiratory: Negative for cough, wheezing or shortness of breath. Cardiovascular: Negative for chest pain, leg swelling or palpitations. Anticoagulation meds - No Gastrointestinal: Negative for abdominal discomfort, blood in stools or black stools or change in bowel habits Bowel surgery No, IBS No Genitourinary: see HPI Musculoskeletal: Negative for joint pain or swelling, back pain or muscle pain. History of gout No Skin: Negative for lesions, rash, and itching. Neuro: No history of headaches, syncope, paralysis, seizures or tremors History of CVA -No The remainder of the ROS was reviewed and was negative. PHYSICAL EXAMINATION BP 140/93 (BP Site: Left Arm, BP Position: Sitting, BP Cuff Size: Large Adult) Pulse 71 Ht 180.3 cm (5' 11) Wt 118.3 kg (260 lb 12.8 oz) BMI 36.37 kg/m Body mass index is 36.37 kg/m . General: No acute distress Lymphatic: Neck supple, no lymphadenopathy. Cardiovascular: No Cyanosis, No edema. Respiratory: Non labored breathing, no cough, no use of accessory muscles. Gastrointestinal: Abdomen is Non-distended, soft, nontender. 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 Neurologic: Normal gait. Sensation grossly intact. Alert and Oriented Genitourinary: MALE EXAM: Exam NOT Indicated PROBLEMS & PLAN: Right mid-distal ureteral stone Recurrent nephrolithiasis Plan: Pt will be scheduled for right URS stone removal We will keep the pt on MET with Flomax until DOS KUB requested to be taken 3 days before procedure I have discussed with the patients the treatment alternatives for his right ureteral stone. I have discussed with the patient the risks and benefits of the surgery right ureteroscopic stone removal, as well as the additional potential risks related to the patients general status and morbidities. Patient understands and agrees to proceed with surgery. I have answered all the questions from the patient. The patient decided to proceed with the above plan. The patient was given the opportunity to have all questions answered and appeared to be satisfied with our discussion. Some elements of this note may be copied from previous versions, however, all data and information has been reviewed and verified and is accurate for today June 26, 2022 Chacho Donis MD Urology Associate Staff Electronically signed Medical Decision Making: Problems: Low: Acute, uncomplicated illness or injury Data: Unique source(s) for external note(s) reviewed: 1 Unique test result(s) reviewed: 1 Independent interpretation of test from other physician/QHCP Risk: Moderate: Decision on minor surgery w/ risk factors Medical Decision Making Level: 4 - Moderate documented in this encounter [facility] 06-26-2022 Miscellaneous Notes Patient calling stating that he took some Advil for his Kidney stone pain 5 hours ago. Patient was seen for the Kidney stones and was prescribed Percocet . Patient wanted to know if he could take the Percocet. Patient denies any new or worsening symptoms of which a provider is not aware:Yes Patient given a 24 hour Pharmacy number . documented in this encounter [facility] 06-24-2022 Miscellaneous Notes Pt needs scheduled for stone treatment ----- Message from Ann Emerson MD sent at 06/24/2022 3:52 AM EST ----- Pt in ED with kidney stone. Will need follow up please. documented in this encounter [facility] 06-23-2022 Miscellaneous Notes Patient notified. Please ask patient how he is feeling. His CT scan shows an right obstructing kidney stone which is an urgent matter as this can cause damage to kidneys if not resolved. As this is Sunday, it cannot wait until Sunday and he needs to go to the ER. Thank you Amada Muro APRN.ALANIS documented in this encounter [facility] 06-23-2022 History of Present illness Narrative Radiology Service Progress Note PATIENT NAME: Waldo Zee DATE OF SERVICE: June 23, 2022 TIME: 3:53 PM PATIENT IDENTITY VERIFICATION COMPLETED USING TWO (2) IDENTIFIERS: Name and Date of confirmed by patient verbally. FALL SCREENING: Has the patient had 2 falls in the last year or 1 fall with injury or currently using an Ambulatory Assistive Device (Walker, Cane, Wheelchair, Crutches, etc.)? No PATIENT GENDER DATA: Male PATIENT RELEVANT IMPLANT DATA REVIEWED: Yes RADIOLOGY DEPARTMENT: CT; Exam(s) Completed: Abdomen/Pelvis PERIPHERAL IV DATA: Not applicable SIGNED BY: RT Jordyn(R) June 23, 2022 3:53 PM documented in this encounter [facility] 06-22-2022 History of Present illness Narrative Reason for Visit Patient presents with: Hematuria Waldo Zee is a 62 year old male who presents here today for Above Complaints. Health Maintenance HIV SCREENING URINE ALBUMIN:CREATININE RATIO DIABETIC FOOT EXAM PROSTATE CANCER SCREENING DISCUSSION DEPRESSION ASSESSMENT HBA1C HPI Yesterday patient noticed blood in the urine, there is some pain in the lower right back pain. He did bend over a lot doing yard work recently. Thought the back pain is from yard work .the blood in urine was really red half a dozen times. He has a history of kidney stones. Diabetes Mellitus : hba1c is 7.9, has cut down his coke to 1 can a day, he is watching what he eats, but eats a lot of chocolate, he watches but limits his sugars recently, he is very active in the yard. he does not want to take any more pills, period, he will not consider any recommendations from us with regards to addition of any medication. Hardest thing to control is sweets Patient still takes the mvi and low dose asa. Today his bp is high , drank coffee just before coming here, otherwise he does well. No problem-specific Assessment & Plan notes found for this encounter. PAST MEDICAL HISTORY Diagnosis Date Coronary artery disease Diabetes (HCC) Esophageal reflux Fibromyalgia Glaucoma Non-STEMI (non-ST elevated myocardial infarction) (HCC) 10/24/2018 Other and unspecified hyperlipidemia Rectal cancer (HCC) Diagnostic laparoscopy, open low anterior rectal and sigmoid resection, mobilization of splenic flexure, flexible sigmoidoscopy, diverting loop ileostomy 07/2017 PAST SURGICAL HISTORY Procedure Laterality Date ABDOMINAL SURGERY HX CARDIAC CATH 10/24/2018 [facility] with stent placement COLON SURGERY HX COLONOSCOPY FLX DX W/COLLJ SPEC WHEN PFRMD 06/13/2017 Colonoscopy COLONOSCOPY FLX DX W/COLLJ SPEC WHEN PFRMD 05/29/2018 [facility]oscopy COLONOSCOPY FLX DX W/COLLJ SPEC WHEN PFRMD 06/26/2019 Colonoscopy COLONOSCOPY FLX DX W/COLLJ SPEC WHEN PFRMD 07/02/2020 Colonoscopy ESOPHAGOGASTRODUODENOSCOPY TRANSORAL DIAGNOSTIC EGD HERNIA REPAIR HX PAST SURGICAL HISTORY OF 07/2017 Diagnostic laparoscopy, open low anterior rectal and sigmoid resection, mobilization of splenic flexure, flexible sigmoidoscopy, diverting loop ileostomy PAST SURGICAL HISTORY OF 11/05/2017 ileostomy reversal PSA (EXTERNAL) 06/14/2015 normal (0.76) [facility] FAMILY HISTORY Adopted: Yes Problem Relation Age of Onset Hypertension Mother other (auto immune hepatitis) Mother other (unknown) Father Diabetes Maternal Grandmother None Maternal Grandfather other (unknown) Paternal Grandmother other (unknown) Paternal Grandfather None Daughter other (Other) Sister blood clot 1/2 sister other (hormone issues) Daughter Social History Tobacco Use Smoking status: Former Types: Cigars Quit date: 02/16/1988 Years since quittin.3 Smokeless tobacco: Never Tobacco comments: Pt will have an occassional cigar.- done with cigars Substance Use Topics Alcohol use: Yes Comment: bourbon every two to three weeks Drug use: No Past medical history, appointments, medications, allergies reviewed. Pertinent Lab/Diagnostic Studies are reviewed and discussed today Current Outpatient Medications: metoprolol tartrate, short acting, (LOPRESSOR) 25 mg tablet metFORMIN (GLUCOPHAGE) [address] (PROTONIX) 40 mg tablet montelukast (SINGULAIR) 10 mg tablet albuterol HFA (PROVENTIL HFA, VENTOLIN HFA) 90 mcg/actuation inhaler ergocalciferol 50,000 unit capsule (VITAMIN D2, DRISDOL) lactulose (ENULOSE) 10 gram/15 mL solution fluticasone (FLONASE) 50 mcg/actuation nasal spray levothyroxine (LEVOXYL) 50 mcg tablet losartan (COZAAR) 25 mg tablet nitroglycerin sublingual (NITROQUICK) 0.4 mg SL tablet COMPOUNDED PRESCRIPTION aspirin 81 mg chewable tablet multivitamin tablet cetirizine (ZYRTEC) 10 mg tablet acetaminophen (TYLENOL) 500 mg tablet latanoprost (XALATAN) 0.005 % ophthalmic solution docusate sodium (COLACE) 100 mg capsule Review of Systems CONSTITUTIONAL: No fevers, chills night sweats, unintended weight loss CARDIOVASCULAR: No chest pain, dyspnea, palpitations, orthopnea, PND, ankle edema. PULM: No dyspnea, unexplained cough. GI: No dysphagia/odynophagia, problematic reflux, constipation, diarrhea, changes in stool habits, hematochezia, melena. : No new urinary complaints, including dysuria, gross hematuria or pyuria. NEURO: No new balance problems, peripheral weakness/paresthesias or numbness of concern. Physical Exam BP 142/86 Pulse 78 Temp 36.1 C (97 F) (Temporal) Resp 16 Wt 119.4 kg (263 lb 3.2 oz) SpO2 99% BMI 37.77 kg/m General appearance: Well appearing, alert, in no acute distress, well nourished. Skin: Skin color, texture, turgor normal, no suspicious rashes or lesions Head: Normocephalic, no masses, lesions, tenderness or abnormalities Eyes: Anicteric sclera. Pupils are equally round and reactive to light. Extraocular movements are intact. Lungs: Lungs clear to auscultation. No wheezing, rhonchi, rales Heart: RRR without murmur, gallop, or rubs. Extremities: No deformities, edema, skin discoloration, clubbing or cyanosis. Good capillary refill. ASSESSMENT/PLAN: 1. Gross hematuria - ICD9: 599.71, ICD10: R31.0 (primary diagnosis) H/o stones, so likely it is related to stones He is afraid of cancer we discussed urology after ct of the flank - UA DIP, URINE (POC) - CONSULT TO UROLOGY 2. Mixed hyperlipidemia - ICD9: 272.2, ICD10: E78.2 The cholesterol is 3. Coronary artery disease involving [place] coronary artery of [place] heart without angina pectoris - ICD9: 414.01, ICD10: I25.10 - DEPRESSION SCREENING/ASSESSMENT 4. Calculus of other lower urinary tract location - ICD9: 594.8, ICD10: N21.8 - CT FLANK WO IVCON - CONSULT TO UROLOGY 5. Type 2 diabetes mellitus without complication, without long-term current use of insulin (HCC) - ICD9: 250.00, ICD10: E11.9 Uncontrolled, We discussed the importance of tight control judith with risk of getting a uti. - HGB A1C - COMP METABOLIC PANEL - CBC - TSH BLD - LIPID PANEL BASIC 6. Chronic bilateral back pain, unspecified back location - ICD9: 724.5, 338.29, ICD10: M54.9, G89.29 Todays flare is from the back Bettye Powell MD documented in this encounter [facility] 06-22-2022 Miscellaneous Notes Patient already scheduled Patient has not been seen in 5 months. He really needs to have an appointment to see if blood work or other diagnostic is indicated outside of just a urine sample. Thank you Amada Muro APRN.SENIOR CONTROL SYSTEMS ENGINEER Patient has been passing a kidney stone for the past month. Patient states today he was doing a lot of strenuous work and noted his urine to be pink in color off and on. Rates the back pain 4:10 on pain scale. Patient questions if this truly in fact a kidney stone or some type of infection. Offered patient an appointment or recommended he come to urgent care to have urine evaluated but patient declined appointment and is asking for lab orders for urinalysis and he will come in and give sample tomorrow. documented in this encounter [facility] 06-22-2022 Miscellaneous Notes PATIENT NOTIFIED OF SAME. Appointment scheduled 06/22/22. documented in this encounter [facility] 02-01-2022 Miscellaneous Notes Patient has been identified by name and date of : Yes Patient phones for refill(s): Pending Prescriptions Disp Refills METOPROLOL TARTRATE 25 MG TABLET 90 tablet 3 Sig: Takes half of pill twice daily HANNA: No METFORMIN 500 MG TABLET 180 tablet 3 Sig: Take 1 tablet by mouth twice daily with meals. HANNA: No Date of last office visit with pcp: 01-20-22. Next appt: 02-21-22 Last 2 Encounter Wt Readings: Date: Wt: 01/20/2022 117 kg (258 lb) 01/05/2022 117.5 kg (259 lb) Previous labs/tests for medication: Diabetes: Hemoglobin A1C (%) Date Value 11/23/2021 7.9 12/22/2020 7.9 05/11/2020 7.3 Hemoglobin A1C (POCT) (%) Date Value 07/29/2021 7.1 Blood Pressure: BUN (mg/dL) Date Value 11/23/2021 11 05/11/2020 13 Sodium (mmol/L) Date Value 11/23/2021 137 05/11/2020 140 Last 1 Encounter BP Readings: Date: BP: 01/20/2022 128/78 Please advise. Thank you. Patricia Gan RN documented in this encounter [facility] 01-23-2022 Miscellaneous Notes Last OV: 01/20/22 Patient has been identified by name and date of : Yes Pending Prescriptions Disp Refills PANTOPRAZOLE 40 MG TABLET,DELAYED RELEASE 90 tablet 3 Sig: Take 1 tablet by mouth once daily. HANNA: No RX INSTRUCTIONS: Patient aware RX will be sent to pharmacy. No need to notify patient. Jackie Copeland LPN documented in this encounter [facility] 01-20-2022 History of Present illness Narrative Radiology Service Progress Note PATIENT NAME: Waldo Zee DATE OF SERVICE: January 20, 2022 TIME: 8:45 AM PATIENT IDENTITY VERIFICATION COMPLETED USING TWO (2) IDENTIFIERS: Name and Date of confirmed by patient verbally. FALL SCREENING: Has the patient had 2 falls in the last year or 1 fall with injury or currently using an Ambulatory Assistive Device (Walker, Cane, Wheelchair, Crutches, etc.)? No PATIENT GENDER DATA: Male PATIENT RELEVANT IMPLANT DATA REVIEWED: Yes RADIOLOGY DEPARTMENT: General X-ray: Exam(s) Completed: Chest X-Ray PERIPHERAL IV DATA: Not applicable SIGNED BY: RT Aminta(R) January 20, 2022 8:45 AM documented in this encounter [facility] 01-20-2022 Instructions Bettye Powell MD - 01/20/2022 8:36 AM EDT Likely post viral syndrome. Stagger tests, If chest xr is normal and singulair is not helping or cough worsening at anytime then do the lung volume documented in this encounter [facility] 01-20-2022 History of Present illness Narrative Reason for Visit Patient presents with: Established Patient: c/o coughing and SOB Waldo Zee is a 61 year old male who presents here today for Above Complaints.. Health Maintenance COVID-19 VACCINE(1) HIV SCREENING HEPATITIS B(1 of 3 - Risk 3-dose series) SHINGRIX VACCINE(1 of 2) PNEUMOCOCCAL(2 - PCV) URINE ALBUMIN:CREATININE RATIO DIABETIC FOOT EXAM PROSTATE CANCER SCREENING DISCUSSION HPI Notes from Dr Holt and nurse for narrative for current concern: chronic cough Waldo Zee is a 61 year old male with bilateral ear pain, some dizziness when bending over for 5 days. He had cold or flu symptoms resolving productive cough 2 weeks ago, and was prescribed Flonase with some relief. Cough was resolving. He also took Zyrtec. His symptoms were worse around 3 AM. Patient reports he was seen by Dr. Salgado on 01/05/22 due to pain in ears and a dry cough. Patient was prescribed prednisone which helped symptoms improve for a short time. Patient states his ear pain is starting to return mildly and states Dr. Salgado told him this could be due from the acid reflux. Also continues with a dry cough which he states he was told could be from acid reflux as well. Denies fever, dizziness or other symptoms. He continues Protonix as prescribed in past, as well as takes a Zyrtec type allergy pill, and Tums as needed. Patient states the dry cough has worsened over the last month and it causes him to cough at night. He states it wakes him up at about 3am and he has to sleep in his chair to reduce the coughing. He wakes up at night coughing, it is a dry cough, it is a full nights sleeps. He has to get out of bed, go downstairs and sit there for a few mins or sleeps in the chair and it gets better. He took the 2 pepcid this morning, he has tried the pepcid, it does not work, claritin does not help he feels at loss. Patient has history of colonrectal cancer. Has allergy to dust mites and does feel tight in the chest, on and off. This morning he was in the shower trying to get ready and feels sob. No swelling in the leg, no exercise intolerance. No problem-specific Assessment & Plan notes found for this encounter. PAST MEDICAL HISTORY Diagnosis Date Coronary artery disease Diabetes (HCC) Esophageal reflux Fibromyalgia Glaucoma Non-STEMI (non-ST elevated myocardial infarction) (HCC) 10/24/2018 Other and unspecified hyperlipidemia Rectal cancer (HCC) Diagnostic laparoscopy, open low anterior rectal and sigmoid resection, mobilization of splenic flexure, flexible sigmoidoscopy, diverting loop ileostomy 07/2017 PAST SURGICAL HISTORY Procedure Laterality Date ABDOMINAL SURGERY HX CARDIAC CATH 10/24/2018 [facility] with stent placement COLON SURGERY HX COLONOSCOPY FLX DX W/COLLJ SPEC WHEN PFRMD 06/13/2017 Colonoscopy COLONOSCOPY FLX DX W/COLLJ SPEC WHEN PFRMD 05/29/2018 Colonoscopy COLONOSCOPY FLX DX W/COLLJ SPEC WHEN PFRMD 06/26/2019 Colonoscopy COLONOSCOPY FLX DX W/COLLJ SPEC WHEN PFRMD 07/02/2020 Colonoscopy ESOPHAGOGASTRODUODENOSCOPY TRANSORAL DIAGNOSTIC EGD HERNIA REPAIR HX PAST SURGICAL HISTORY OF 07/2017 Diagnostic laparoscopy, open low anterior rectal and sigmoid resection, mobilization of splenic flexure, flexible sigmoidoscopy, diverting loop ileostomy PAST SURGICAL HISTORY OF 11/05/2017 ileostomy reversal PSA (EXTERNAL) 06/14/2015 normal (0.76) [facility] FAMILY HISTORY Adopted: Yes Problem Relation Age of Onset Hypertension Mother other (auto immune hepatitis) Mother other (unknown) Father Diabetes Maternal Grandmother None Maternal Grandfather other (unknown) Paternal Grandmother other (unknown) Paternal Grandfather None Daughter other (Other) Sister blood clot 1/2 sister other (hormone issues) Daughter Social History Tobacco Use Smoking status: Former Smoker Years: 2.00 Types: Cigars Quit date: 02/16/1988 Years since quittin.9 Smokeless tobacco: Never Used Tobacco comment: Pt will have an occassional cigar.- done with cigars Substance Use Topics Alcohol use: Yes Comment: bourbon every two to three weeks Drug use: No Past medical history, appointments, medications, allergies reviewed. Pertinent Lab/Diagnostic Studies are reviewed and discussed today Current Outpatient Medications: ergocalciferol 50,000 unit capsule (VITAMIN D2, DRISDOL) lactulose (ENULOSE) 10 gram/15 mL solution fluticasone (FLONASE) 50 mcg/actuation nasal spray levothyroxine (LEVOXYL) 50 mcg tablet losartan (COZAAR) 25 mg tablet metoprolol tartrate, short acting, (LOPRESSOR) [address] (PROTONIX) 40 mg tablet metFORMIN (GLUCOPHAGE) 500 mg tablet nitroglycerin sublingual (NITROQUICK) 0.4 mg SL tablet docusate sodium (COLACE) 100 mg capsule COMPOUNDED PRESCRIPTION aspirin 81 mg chewable tablet multivitamin tablet cetirizine (ZYRTEC) 10 mg tablet acetaminophen (TYLENOL EXTRA STRENGTH) 500 mg tablet latanoprost (XALATAN) 0.005 % ophthalmic solution Review of Systems CONSTITUTIONAL: No fevers, chills night sweats, unintended weight loss CARDIOVASCULAR: No chest pain, dyspnea, palpitations, orthopnea, PND, ankle edema. PULM: No dyspnea, unexplained cough. GI: No dysphagia/odynophagia, problematic reflux, constipation, diarrhea, changes in stool habits, hematochezia, melena. : No new urinary complaints, including dysuria, gross hematuria or pyuria. NEURO: No new balance problems, peripheral weakness/paresthesias or numbness of concern. Physical Exam BP 128/78 (BP Site: Left Arm, BP Position: Sitting, BP Cuff Size: Large Adult) Pulse 82 Resp 16 Ht 177.8 cm (5' 10) Wt 117 kg (258 lb) SpO2 97% BMI 37.02 kg/m General appearance: Well appearing, alert, in no acute distress, well nourished. Skin: Skin color, texture, turgor normal, no suspicious rashes or lesions Head: Normocephalic, no masses, lesions, tenderness or abnormalities Eyes: Anicteric sclera. Pupils are equally round and reactive to light. Extraocular movements are intact. Lungs: Lungs clear to auscultation. No wheezing, rhonchi, rales Heart: RRR without murmur, gallop, or rubs. Extremities: No deformities, edema, skin discoloration, clubbing or cyanosis. Good capillary refill. ASSESSMENT/PLAN: 1. Cough - ICD9: 786.2, ICD10: R05.9 (primary diagnosis) Likely post viral syndrome. Stagger tests, If chest xr is normal and singulair is not helping or cough worsening at anytime then do the lung volume Seeing cards next month to bring this up with them - XR CHEST 2V FRONTAL/LAT - MONTELUKAST 10 MG TABLET - LUNG VOLUMES - SPIROMETRY - BASELINE AND POST DILATOR - METHACHOLINE CHALLENGE 2. Bronchitis - ICD9: 490, ICD10: J40 - METHACHOLINE CHALLENGE Bettye Powell MD documented in this encounter [facility] 01-18-2022 Miscellaneous Notes appointment made for Sunday at 8 am Loli Peters LPN If patient is now short of breath, and no treatment is effective, he needs re-evaluated for additional causes. Thank you Amada Muro APRN.ALANIS Patient tried the pepcid since yesterday and today, but patient is c/o short of breath. Also, has a cough Please advise further. Loli Peters LPN I think the pepcid is a good idea , he should try it and see if gets better Pt states he does take protonix on an empty stomach, takes it at hs. Cough is dry & is the only sx he has. States he drank a nkechi theresa yesterday & it helped the acid reflux. Also reports prednisone that was prescribed by Dr Salgado helped his ears. Pt states he bought generic Pepcid AC this am at the grocery store & wants to try it. Elly Santana LPN Is he taking protonix on am empty stomach? And waiting for half hour before eating? Patient reports he was seen by Dr. Salgado on 01/05/22 due to pain in ears and a dry cough. Patient was prescribed prednisone which helped symptoms improve for a short time. Patient states his ear pain is starting to return mildly and states Dr. Salgado told him this could be due from the acid reflux. Also continues with a dry cough which he states he was told could be from acid reflux as well. Denies fever, dizziness or other symptoms. He continues Protonix as prescribed in past, as well as takes a Zyrtec type allergy pill, and Tums as needed. Patient states the dry cough has worsened over the last month and it causes him to cough at night. He states it wakes him up at about 3am and he has to sleep in his chair to reduce the coughing. Patient asking Dr. Powell to advise. [facility] if sending any scripts. Thank you. documented in this encounter [facility] 01-05-2022 History of Present illness Narrative This note was created using [email or web address]. Subjective Waldo Zee is a 61 year old male with bilateral ear pain, some dizziness when bending over for 5 days. He had cold or flu symptoms resolving productive cough 2 weeks ago, and was prescribed Flonase with some relief. Cough was resolving. He also took Zyrtec. His symptoms were worse around 3 AM. He denied exposure to any one ill and was not concerned about Covid. Review of Systems Constitutional: Negative for chills, diaphoresis and fever. HENT: Positive for ear pain and sore throat. Negative for congestion, ear discharge, hearing loss and rhinorrhea. Respiratory: Negative for shortness of breath and wheezing. Gastrointestinal: Negative for abdominal pain, diarrhea and vomiting. Musculoskeletal: Negative for myalgias. ACTIVE PROBLEM LIST Mixed Hyperlipidemia Elevated Liver Enzymes Erosive Esophagitis Knee Pain Routine Health Maintenance Primary Open Angle Glaucoma Cancer of Sigmoid Colon (Hcc) Type 2 Diabetes Mellitus Without Complication, Without Long-Term Current Use of Insulin (Hcc) Rectal Cancer (Hcc) Bmi 39.0-39.9,Adult Fibromyalgia Vitamin D Deficiency Coronary Artery Disease Involving [facility] Coronary Artery of [facility] Heart Without Angina Pectoris Fatty Liver Morbid Obesity (Hcc) Current Outpatient Medications Medication Sig fluticasone (FLONASE) 50 mcg/actuation nasal spray Use 2 Sprays in each nostril once daily. Rinse mouth after use. levothyroxine (LEVOXYL) 50 mcg tablet Take 1 tablet by mouth once daily. Take on empty stomach. For Thyroid losartan (COZAAR) 25 mg tablet Take 1 tablet by mouth once daily. ergocalciferol 50,000 unit capsule (VITAMIN D2, DRISDOL) TAKE 1 CAPSULE ONCE WEEKLY metoprolol tartrate, short acting, (LOPRESSOR) 25 mg tablet Takes half of pill twice daily pantoprazole DR (PROTONIX) 40 mg tablet Take 1 tablet by mouth once daily. metFORMIN (GLUCOPHAGE) 500 mg tablet Take 1 tablet by mouth twice daily with meals. nitroglycerin sublingual (NITROQUICK) 0.4 mg SL tablet Dissolve 1 tablet under the tongue every 5 minutes as needed for Chest Pain. COMPOUNDED PRESCRIPTION Diabetic arch supports Dx: E11.9 M72.2 aspirin 81 mg chewable tablet Take 1 tablet by mouth once daily. multivitamin tablet Take 1 tablet by mouth once daily. cetirizine (ZYRTEC) 10 mg tablet Take 10 mg by mouth once daily. acetaminophen (TYLENOL EXTRA STRENGTH) 500 mg tablet Take 500 mg by mouth every 8 hours as needed. latanoprost (XALATAN) 0.005 % ophthalmic solution Use 1 Drop in both eyes daily at bedtime. lactulose (ENULOSE) 10 gram/15 mL solution Take 30 mL by mouth twice daily. docusate sodium (COLACE) 100 mg capsule Take 1 capsule by mouth twice daily. (Patient not taking: Reported on 01/05/2022 ) No current facility-administered medications for this visit. Objective BP 130/82 (BP Site: Left Arm, BP Position: Sitting, BP Cuff Size: Large Adult) Pulse 76 Temp (!) 35.8 C (96.5 F) (Temporal Artery) Resp 16 Wt 117.5 kg (259 lb) BMI 37.16 kg/m Physical Exam Constitutional: Appearance: He is not ill-appearing. HENT: Right Ear: Ear canal normal. No decreased hearing noted. No middle ear effusion. Tympanic membrane is erythematous. Tympanic membrane is not bulging. Left Ear: Tympanic membrane and ear canal normal. No decreased hearing noted. Nose: Mucosal edema present. Mouth/Throat: Pharynx: Pharyngeal swelling present. No oropharyngeal exudate or posterior oropharyngeal erythema. Neck: Thyroid: No thyroid mass. Vascular: Normal carotid pulses. No carotid bruit. Cardiovascular: Heart sounds: Normal heart sounds. No murmur heard. No gallop. Pulmonary: Effort: No respiratory distress. Breath sounds: Normal breath sounds. Musculoskeletal: Cervical back: Muscular tenderness present. Lymphadenopathy: Cervical: No cervical adenopathy. Assessment and Plan 1. Otalgia of both ears - ICD9: 388.70, ICD10: H92.03 (primary diagnosis) - PREDNISONE 20 MG TABLET. Daily x 5 days. Shared medical decision making was done. This is consistent with allergies. Continue Flonase and Zyrtec. Discussed medication dosage, usage, goals of therapy, and side effects. He did not recall, but he had taken this from our academic affairs specialist in 2011. 2. Dysfunction of Eustachian tube, unspecified laterality - ICD9: 381.81, ICD10: H69.80 - PREDNISONE 20 MG TABLET 3. Type 2 diabetes mellitus without complication, without long-term current use of insulin (HCC) - ICD9: 250.00, ICD10: E11.9 Expect glucose elevation that is transient. Don Salgado MD documented in this encounter [facility] 12-30-2021 Miscellaneous Notes Patient has been identified by name and date of : Yes Patient phones for refill(s): Pending Prescriptions Disp Refills LACTULOSE 10 GRAM/15 ML ORAL SOLUTION Sig: Take 30 mL by mouth twice daily. HANNA: No Date of last office visit in primary care: 07/29/2021 Last 2 Encounter Wt Readings: Date: Wt: 07/29/2021 122 kg (269 lb) 02/08/2021 120.2 kg (265 lb) Previous labs/tests for medication: Diabetes: Hemoglobin A1C (%) Date Value 11/23/2021 7.9 12/22/2020 7.9 05/11/2020 7.3 Hemoglobin A1C (POCT) (%) Date Value 07/29/2021 7.1 Please advise. Thank you. Loli Peters LPN Patient has been identified by name and date of : Yes Pending Prescriptions Disp Refills LACTULOSE 10 GRAM/15 ML ORAL SOLUTION Sig: Take 30 mL by mouth twice daily. HANNA: No RX INSTRUCTIONS: Patient aware RX will be sent to pharmacy. No need to notify patient. Lina Li documented in this encounter [facility] 12-26-2021 Miscellaneous Notes Patient notified. Sending an order of flonase nasal spray for patient. This should help decrease his sinus tightness, drainage, and allergy symptoms. If this is not helpful, patient will need an appointment for further evaluation. Thank you Amada Muro APRN.SENIOR CONTROL SYSTEMS ENGINEER Patient called in on 12/24/21 for cough and runny nose and triage protocol recommended disposition of home care. Care advice was reviewed with patient then. Patient was advised to contact office or seek evaluation in urgent care or ER if symptoms persist or gets worse. Patient calling today to state he continues with runny nose, cough and he is coughing up white phlegm. He states his sinuses are tight feeling. He reports he coughs at night and it wakes him up every night at 3am and he has to get up and clear phlegm out of his throat. He reports he has allergies and has been working outside a lot. He reports [employer] has not been helping. He states that this is not in his lungs that it is all in his sinuses. He states he checks his temperature, blood pressure and pulse oximeter regularly and results are normal. This nurse advised appt or urgent care however patient declined at this time and states he does not feel like driving in because his sinuses make him feel dizzy. Requesting [facility] in [place]. Please advise patient. Thank you. documented in this encounter [facility] 12-24-2021 Miscellaneous Notes Patient call in for cough and runny nose which was worse after mowing last night. Nurse Triage assessment completed with protocol recommending for disposition of home care. Care advice reviewed with patient, patient stated understanding. Patient advised to contact office or seek evaluation in urgent care or ER if symptoms persist or gets worse. Reason for Disposition Cough Answer Assessment - Initial Assessment Questions 1. ONSET: 2 days 2. SEVERITY: Body aching 3. SPUTUM: Clear sputum 4. HEMOPTYSIS: Denies 5. DIFFICULTY BREATHING: Denies 6. FEVER: Denies 7. CARDIAC HISTORY: Stents 8. LUNG HISTORY: Denies 9. PE RISK FACTORS: Denies 10. OTHER SYMPTOMS: Ear ache, nose running Protocols used: COUGH - ACUTE [id number] documented in this encounter [facility] 11-24-2021 Miscellaneous Notes Patient notified. Please ask patient if her checks his blood sugar at home? If not he needs to check one first thing in the AM fasting and once 2 hours after largest meal. He should bring these results with him to next visit to review. Thank you Amada Muro APRN.ALANIS Patient notified, not willing to add statin at this time, states it adds more trouble than it is worth. Patient states that if he does not eat sweets, his body reacts and he feels dizzy. Always feels better after eating sweets. Patient states he was put on thyroid medication because he was tired but feels even more tired than before. I assured patient that he needs to continue his thyroid medication and his latest results were in good range. Please let patient know his HgbA1c is 7.9 which is too high. I have seen in past visits he did not want to start the injections as recommended by Dr. Powell. He needs to increase his metformin to 2 tabs in Am and 1 tab in PM for one week and then increase to 2 tabs twice a day. Also his cholesterol levels are elevated and I recommend starting a statin type medication to help decrease his risk for heart attack and stroke. If he is agreeable to this, I will start a low dose of atorvastatin to be taken before bed. Top issue reported with this is muscle aches, please let me know if you experience this. We will recheck labs at upcoming visit. Thank you Amada Muro APRN.CNP The 10-year ASCVD risk score (Claringtonangelica MCLAIN Jr., et al., 2013) is: 14.2% Values used to calculate the score: Age: 61 years Sex: Male Is Non- : No Diabetic: Yes Tobacco smoker: No Systolic Blood Pressure: 110 mmHg Is BP treated: No HDL Cholesterol: 39 mg/dL Total Cholesterol: 207 mg/dL documented in this encounter [facility] 06-26-2018 History of Past i llness Narrative Problem Noted Date Resolved Date Incisional hernia 06/26/2018 06/02/2020 Family history of colon cancer 05/15/2018 1 Overview: Added automatically from request for surgery [id number] Ventral hernia without obstruction or gangrene 0 04/17/2018 06/02/2020 Overview: Added automatically from request for surgery [id number] Attention to ileostomy 11/06/2017 8 Malnutrition of mild degree 11/06/201705/14 History of rectal cancer 11/05/2017 020 Hypotension 08/06/2017 08/06/[address] 08/06/2017 04/03/2018 Hypokalemia 08/06/2017 08/06/2017 Post-op pain 08/06/2017 06/02/2020 Annual physical exam 05/29/2017 06/02/2020 Overview: Added automatically from request for surgery [id number] Obesity (BMI 30.0-34.9) 07/28/2014 06/02/20 20 Last Assessment & Plan: He does the tread mill for 5. Lexy then the weights for 5 and repeats this cycle for an hour. For BF he had an omelette with cheese and meat. Piece of chocolate,and coffee and creamer without sugar, For snack he had a protein bar, Burrito frozen one with doughnuts Dinner frozen pizza. Elevated LFTs 02/09/2014 02/09/2014 Diabetes 01/20/2014 11/22/2018 Last Assessment & Plan: Patient is a diabetic but does not really want to come into the clinic . He is not good with following up and coming to the doctors. Tracheobronchitis 09/17/2009 02/09/2014 Cough 09/17/2009 02/09/2014 Esophageal reflux 06/02/2020 documented as of this encounter (statuses as of 11/24/2021) [facility] History of Past illness Narrative* Problem Noted Date Resolved Date Incisional hernia 06/26/2018 06/02/2020 Family history of colon cancer 05/15/2018 1 Overview: Added automatically from request for surgery [id number] Ventral hernia without obstruction or gangrene 0 04/17/2018 06/02/2020 Overview: Added automatically from request for surgery [id number] Attention to ileostomy 11/06/2017 8 Malnutrition of mild degree 11/06/201705/14 History of rectal cancer 11/05/2017 020 Hypotension 08/06/2017 08/06/[address] 08/06/2017 04/03/2018 Hypokalemia 08/06/2017 08/06/2017 Post-op pain 08/06/2017 06/02/2020 Annual physical exam 05/29/2017 06/02/2020 Overview: Added automatically from request for surgery [id number] Obesity (BMI 30.0-34.9) 07/28/2014 06/02/20 20 Last Assessment & Plan: He does the tread mill for 5. Lexy then the weights for 5 and repeats this cycle for an hour. For BF he had an omelette with cheese and meat. Piece of chocolate,and coffee and creamer without sugar, For snack he had a protein bar, Burrito frozen one with doughnuts Dinner frozen pizza. Elevated LFTs 02/09/2014 02/09/2014 Diabetes 01/20/2014 11/22/2018 Last Assessment & Plan: Patient is a diabetic but does not really want to come into the clinic . He is not good with following up and coming to the doctors. Tracheobronchitis 09/17/2009 02/09/2014 Cough 09/17/2009 02/09/2014 Esophageal reflux 06/02/2020 documented as of this encounter (statuses as of 12/12/2021) [facility] History of Past illness Narrative* Problem Noted Date Resolved Date Incisional hernia 06/26/2018 06/02/2020 Family history of colon cancer 05/15/2018 1 Overview: Added automatically from request for surgery [id number] Ventral hernia without obstruction or gangrene 0 04/17/2018 06/02/2020 Overview: Added automatically from request for surgery [id number] Attention to ileostomy 11/06/2017 8 Malnutrition of mild degree 11/06/201705/14 History of rectal cancer 11/05/2017 020 Hypotension 08/06/2017 08/06/[address] 08/06/2017 04/03/2018 Hypokalemia 08/06/2017 08/06/2017 Post-op pain 08/06/2017 06/02/2020 Annual physical exam 05/29/2017 06/02/2020 Overview: Added automatically from request for surgery [id number] Obesity (BMI 30.0-34.9) 07/28/2014 06/02/20 20 Last Assessment & Plan: He does the tread mill for 5. Lexy then the weights for 5 and repeats this cycle for an hour. For BF he had an omelette with cheese and meat. Piece of chocolate,and coffee and creamer without sugar, For snack he had a protein bar, Burrito frozen one with doughnuts Dinner frozen pizza. Elevated LFTs 02/09/2014 02/09/2014 Diabetes 01/20/2014 11/22/2018 Last Assessment & Plan: Patient is a diabetic but does not really want to come into the clinic . He is not good with following up and coming to the doctors. Tracheobronchitis 09/17/2009 02/09/2014 Cough 09/17/2009 02/09/2014 Esophageal reflux 06/02/2020 documented as of this encounter (statuses as of 12/24/2021) [facility] History of Past illness Narrative* Problem Noted Date Resolved Date Incisional hernia 06/26/2018 06/02/2020 Family history of colon cancer 05/15/2018 1 Overview: Added automatically from request for surgery [id number] Ventral hernia without obstruction or gangrene 0 04/17/2018 06/02/2020 Overview: Added automatically from request for surgery [id number] Attention to ileostomy 11/06/2017 8 Malnutrition of mild degree 11/06/201705/14 History of rectal cancer 11/05/2017 020 Hypotension 08/06/2017 08/06/[address] 08/06/2017 04/03/2018 Hypokalemia 08/06/2017 08/06/2017 Post-op pain 08/06/2017 06/02/2020 Annual physical exam 05/29/2017 06/02/2020 Overview: Added automatically from request for surgery [id number] Obesity (BMI 30.0-34.9) 07/28/2014 06/02/20 20 Last Assessment & Plan: He does the tread mill for 5. Lexy then the weights for 5 and repeats this cycle for an hour. For BF he had an omelette with cheese and meat. Piece of chocolate,and coffee and creamer without sugar, For snack he had a protein bar, Burrito frozen one with doughnuts Dinner frozen pizza. Elevated LFTs 02/09/2014 02/09/2014 Diabetes 01/20/2014 11/22/2018 Last Assessment & Plan: Patient is a diabetic but does not really want to come into the clinic . He is not good with following up and coming to the doctors. Tracheobronchitis 09/17/2009 02/09/2014 Cough 09/17/2009 02/09/2014 Esophageal reflux 06/02/2020 documented as of this encounter (statuses as of 12/26/2021) [facility] History of Past illness Narrative* Problem Noted Date Resolved Date Incisional hernia 06/26/2018 06/02/2020 Family history of colon cancer 05/15/2018 1 Overview: Added automatically from request for surgery [id number] Ventral hernia without obstruction or gangrene 0 04/17/2018 06/02/2020 Overview: Added automatically from request for surgery [id number] Attention to ileostomy 11/06/2017 8 Malnutrition of mild degree 11/06/201705/14 History of rectal cancer 11/05/2017 020 Hypotension 08/06/2017 08/06/[address] 08/06/2017 04/03/2018 Hypokalemia 08/06/2017 08/06/2017 Post-op pain 08/06/2017 06/02/2020 Annual physical exam 05/29/2017 06/02/2020 Overview: Added automatically from request for surgery [id number] Obesity (BMI 30.0-34.9) 07/28/2014 06/02/20 20 Last Assessment & Plan: He does the tread mill for 5. Lexy then the weights for 5 and repeats this cycle for an hour. For BF he had an omelette with cheese and meat. Piece of chocolate,and coffee and creamer without sugar, For snack he had a protein bar, Burrito frozen one with doughnuts Dinner frozen pizza. Elevated LFTs 02/09/2014 02/09/2014 Diabetes 01/20/2014 11/22/2018 Last Assessment & Plan: Patient is a diabetic but does not really want to come into the clinic . He is not good with following up and coming to the doctors. Tracheobronchitis 09/17/2009 02/09/2014 Cough 09/17/2009 02/09/2014 Esophageal reflux 06/02/2020 documented as of this encounter (statuses as of 01/01/2022) [facility] History of Past illness Narrative* Problem Noted Date Resolved Date Incisional hernia 06/26/2018 06/02/2020 Family history of colon cancer 05/15/2018 1 Overview: Added automatically from request for surgery [id number] Ventral hernia without obstruction or gangrene 0 04/17/2018 06/02/2020 Overview: Added automatically from request for surgery [id number] Attention to ileostomy 11/06/2017 8 Malnutrition of mild degree 11/06/201705/14 History of rectal cancer 11/05/2017 020 Hypotension 08/06/2017 08/06/[address] 08/06/2017 04/03/2018 Hypokalemia 08/06/2017 08/06/2017 Post-op pain 08/06/2017 06/02/2020 Annual physical exam 05/29/2017 06/02/2020 Overview: Added automatically from request for surgery [id number] Obesity (BMI 30.0-34.9) 07/28/2014 06/02/20 20 Last Assessment & Plan: He does the tread mill for 5. Lexy then the weights for 5 and repeats this cycle for an hour. For BF he had an omelette with cheese and meat. Piece of chocolate,and coffee and creamer without sugar, For snack he had a protein bar, Burrito frozen one with doughnuts Dinner frozen pizza. Elevated LFTs 02/09/2014 02/09/2014 Diabetes 01/20/2014 11/22/2018 Last Assessment & Plan: Patient is a diabetic but does not really want to come into the clinic . He is not good with following up and coming to the doctors. Tracheobronchitis 09/17/2009 02/09/2014 Cough 09/17/2009 02/09/2014 Esophageal reflux 06/02/2020 documented as of this encounter (statuses as of 01/05/2022) [facility] History of Past illness Narrative* Problem Noted Date Resolved Date Incisional hernia 06/26/2018 06/02/2020 Family history of colon cancer 05/15/2018 1 Overview: Added automatically from request for surgery [id number] Ventral hernia without obstruction or gangrene 0 04/17/2018 06/02/2020 Overview: Added automatically from request for surgery [id number] Attention to ileostomy 11/06/2017 8 Malnutrition of mild degree 11/06/201705/14 History of rectal cancer 11/05/2017 020 Hypotension 08/06/2017 08/06/[address] 08/06/2017 04/03/2018 Hypokalemia 08/06/2017 08/06/2017 Post-op pain 08/06/2017 06/02/2020 Annual physical exam 05/29/2017 06/02/2020 Overview: Added automatically from request for surgery [id number] Obesity (BMI 30.0-34.9) 07/28/2014 06/02/20 20 Last Assessment & Plan: He does the tread mill for 5. Lexy then the weights for 5 and repeats this cycle for an hour. For BF he had an omelette with cheese and meat. Piece of chocolate,and coffee and creamer without sugar, For snack he had a protein bar, Burrito frozen one with doughnuts Dinner frozen pizza. Elevated LFTs 02/09/2014 02/09/2014 Diabetes 01/20/2014 11/22/2018 Last Assessment & Plan: Patient is a diabetic but does not really want to come into the clinic . He is not good with following up and coming to the doctors. Tracheobronchitis 09/17/2009 02/09/2014 Cough 09/17/2009 02/09/2014 Esophageal reflux 06/02/2020 documented as of this encounter (statuses as of 01/18/2022) [facility] History of Past illness Narrative* Problem Noted Date Resolved Date Incisional hernia 06/26/2018 06/02/2020 Family history of colon cancer 05/15/2018 1 Overview: Added automatically from request for surgery [id number] Ventral hernia without obstruction or gangrene 0 04/17/2018 06/02/2020 Overview: Added automatically from request for surgery [id number] Attention to ileostomy 11/06/2017 8 Malnutrition of mild degree 11/06/201705/14 History of rectal cancer 11/05/2017 020 Hypotension 08/06/2017 08/06/[address] 08/06/2017 04/03/2018 Hypokalemia 08/06/2017 08/06/2017 Post-op pain 08/06/2017 06/02/2020 Annual physical exam 05/29/2017 06/02/2020 Overview: Added automatically from request for surgery [id number] Obesity (BMI 30.0-34.9) 07/28/2014 06/02/20 20 Last Assessment & Plan: He does the tread mill for 5. Lexy then the weights for 5 and repeats this cycle for an hour. For BF he had an omelette with cheese and meat. Piece of chocolate,and coffee and creamer without sugar, For snack he had a protein bar, Burrito frozen one with doughnuts Dinner frozen pizza. Elevated LFTs 02/09/2014 02/09/2014 Diabetes 01/20/2014 11/22/2018 Last Assessment & Plan: Patient is a diabetic but does not really want to come into the clinic . He is not good with following up and coming to the doctors. Tracheobronchitis 09/17/2009 02/09/2014 Cough 09/17/2009 02/09/2014 Esophageal reflux 06/02/2020 documented as of this encounter (statuses as of 01/20/2022) [facility] History of Past illness Narrative* Problem Noted Date Resolved Date Incisional hernia 06/26/2018 06/02/2020 Family history of colon cancer 05/15/2018 1 Overview: Added automatically from request for surgery [id number] Ventral hernia without obstruction or gangrene 0 04/17/2018 06/02/2020 Overview: Added automatically from request for surgery [id number] Attention to ileostomy 11/06/2017 8 Malnutrition of mild degree 11/06/201705/14 History of rectal cancer 11/05/2017 020 Hypotension 08/06/2017 08/06/[address] 08/06/2017 04/03/2018 Hypokalemia 08/06/2017 08/06/2017 Post-op pain 08/06/2017 06/02/2020 Annual physical exam 05/29/2017 06/02/2020 Overview: Added automatically from request for surgery [id number] Obesity (BMI 30.0-34.9) 07/28/2014 06/02/20 20 Last Assessment & Plan: He does the tread mill for 5. Lexy then the weights for 5 and repeats this cycle for an hour. For BF he had an omelette with cheese and meat. Piece of chocolate,and coffee and creamer without sugar, For snack he had a protein bar, Burrito frozen one with doughnuts Dinner frozen pizza. Elevated LFTs 02/09/2014 02/09/2014 Diabetes 01/20/2014 11/22/2018 Last Assessment & Plan: Patient is a diabetic but does not really want to come into the clinic . He is not good with following up and coming to the doctors. Tracheobronchitis 09/17/2009 02/09/2014 Cough 09/17/2009 02/09/2014 Esophageal reflux 06/02/2020 documented as of this encounter (statuses as of 01/23/2022) [facility] of Past illness Narrative* Problem Noted Date Resolved Date Incisional hernia 06/26/2018 06/02/2020 Family history of colon cancer 05/15/2018 1 Overview: Added automatically from request for surgery [id number] Ventral hernia without obstruction or gangrene 0 04/17/2018 06/02/2020 Overview: Added automatically from request for surgery [id number] Attention to ileostomy 11/06/2017 8 Malnutrition of mild degree 11/06/201705/14 History of rectal cancer 11/05/2017 020 Hypotension 08/06/2017 08/06/[address] 08/06/2017 04/03/2018 Hypokalemia 08/06/2017 08/06/2017 Post-op pain 08/06/2017 06/02/2020 Annual physical exam 05/29/2017 06/02/2020 Overview: Added automatically from request for surgery [id number] Obesity (BMI 30.0-34.9) 07/28/2014 06/02/20 20 Last Assessment & Plan: He does the tread mill for 5. Lexy then the weights for 5 and repeats this cycle for an hour. For BF he had an omelette with cheese and meat. Piece of chocolate,and coffee and creamer without sugar, For snack he had a protein bar, Burrito frozen one with doughnuts Dinner frozen pizza. Elevated LFTs 02/09/2014 02/09/2014 Diabetes 01/20/2014 11/22/2018 Last Assessment & Plan: Patient is a diabetic but does not really want to come into the clinic . He is not good with following up and coming to the doctors. Tracheobronchitis 09/17/2009 02/09/2014 Cough 09/17/2009 02/09/2014 Esophageal reflux 06/02/2020 documented as of this encounter (statuses as of 02/02/2022) [facility] of Past illness Narrative* Problem Noted Date Resolved Date Incisional hernia 06/26/2018 06/02/2020 Family history of colon cancer 05/15/2018 1 Overview: Added automatically from request for surgery [id number] Ventral hernia without obstruction or gangrene 0 04/17/2018 06/02/2020 Overview: Added automatically from request for surgery [id number] Attention to ileostomy 11/06/2017 8 Malnutrition of mild degree 11/06/201705/14 History of rectal cancer 11/05/2017 020 Hypotension 08/06/2017 08/06/[address] 08/06/2017 04/03/2018 Hypokalemia 08/06/2017 08/06/2017 Post-op pain 08/06/2017 06/02/2020 Annual physical exam 05/29/2017 06/02/2020 Overview: Added automatically from request for surgery [id number] Obesity (BMI 30.0-34.9) 07/28/2014 06/02/20 20 Last Assessment & Plan: He does the tread mill for 5. Lexy then the weights for 5 and repeats this cycle for an hour. For BF he had an omelette with cheese and meat. Piece of chocolate,and coffee and creamer without sugar, For snack he had a protein bar, Burrito frozen one with doughnuts Dinner frozen pizza. Elevated LFTs 02/09/2014 02/09/2014 Diabetes 01/20/2014 11/22/2018 Last Assessment & Plan: Patient is a diabetic but does not really want to come into the clinic . He is not good with following up and coming to the doctors. Tracheobronchitis 09/17/2009 02/09/2014 Cough 09/17/2009 02/09/2014 Esophageal reflux 06/02/2020 documented as of this encounter (statuses as of 06/22/2022) [facility] of Past illness Narrative* Problem Noted Date Resolved Date Incisional hernia 06/26/2018 06/02/2020 Family history of colon cancer 05/15/2018 1 Overview: Added automatically from request for surgery [id number] Ventral hernia without obstruction or gangrene 0 04/17/2018 06/02/2020 Overview: Added automatically from request for surgery [id number] Attention to ileostomy 11/06/2017 8 Malnutrition of mild degree 11/06/201705/14 History of rectal cancer 11/05/2017 020 Hypotension 08/06/2017 08/06/[address] 08/06/2017 04/03/2018 Hypokalemia 08/06/2017 08/06/2017 Post-op pain 08/06/2017 06/02/2020 Annual physical exam 05/29/2017 06/02/2020 Overview: Added automatically from request for surgery [id number] Obesity (BMI 30.0-34.9) 07/28/2014 06/02/20 20 Last Assessment & Plan: He does the tread mill for 5. Lexy then the weights for 5 and repeats this cycle for an hour. For BF he had an omelette with cheese and meat. Piece of chocolate,and coffee and creamer without sugar, For snack he had a protein bar, Burrito frozen one with doughnuts Dinner frozen pizza. Elevated LFTs 02/09/2014 02/09/2014 Diabetes 01/20/2014 11/22/2018 Last Assessment & Plan: Patient is a diabetic but does not really want to come into the clinic . He is not good with following up and coming to the doctors. Tracheobronchitis 09/17/2009 02/09/2014 Cough 09/17/2009 02/09/2014 Esophageal reflux 06/02/2020 documented as of this encounter (statuses as of 06/22/2022) [facility] illness Narrative* Problem Noted Date Resolved Date Incisional hernia 06/26/2018 06/02/2020 Family history of colon cancer 05/15/2018 1 Overview: Added automatically from request for surgery [id number] Ventral hernia without obstruction or gangrene 0 04/17/2018 06/02/2020 Overview: Added automatically from request for surgery [id number] Attention to ileostomy 11/06/2017 8 Malnutrition of mild degree 11/06/201705/14 History of rectal cancer 11/05/2017 020 Hypotension 08/06/2017 08/06/[address] 08/06/2017 04/03/2018 Hypokalemia 08/06/2017 08/06/2017 Post-op pain 08/06/2017 06/02/2020 Annual physical exam 05/29/2017 06/02/2020 Overview: Added automatically from request for surgery [id number] Obesity (BMI 30.0-34.9) 07/28/2014 06/02/20 20 Last Assessment & Plan: He does the tread mill for 5. Lexy then the weights for 5 and repeats this cycle for an hour. For BF he had an omelette with cheese and meat. Piece of chocolate,and coffee and creamer without sugar, For snack he had a protein bar, Burrito frozen one with doughnuts Dinner frozen pizza. Elevated LFTs 02/09/2014 02/09/2014 Diabetes 01/20/2014 11/22/2018 Last Assessment & Plan: Patient is a diabetic but does not really want to come into the clinic . He is not good with following up and coming to the doctors. Tracheobronchitis 09/17/2009 02/09/2014 Cough 09/17/2009 02/09/2014 Esophageal reflux 06/02/2020 documented as of this encounter (statuses as of 06/22/2022) [facility] illness Narrative* Problem Noted Date Resolved Date Incisional hernia 06/26/2018 06/02/2020 Family history of colon cancer 05/15/2018 1 Overview: Added automatically from request for surgery [id number] Ventral hernia without obstruction or gangrene 0 04/17/2018 06/02/2020 Overview: Added automatically from request for surgery [id number] Attention to ileostomy 11/06/2017 8 Malnutrition of mild degree 11/06/201705/14 History of rectal cancer 11/05/2017 020 Hypotension 08/06/2017 08/06/[address] 08/06/2017 04/03/2018 Hypokalemia 08/06/2017 08/06/2017 Post-op pain 08/06/2017 06/02/2020 Annual physical exam 05/29/2017 06/02/2020 Overview: Added automatically from request for surgery [id number] Obesity (BMI 30.0-34.9) 07/28/2014 06/02/20 20 Last Assessment & Plan: He does the tread mill for 5. Lexy then the weights for 5 and repeats this cycle for an hour. For BF he had an omelette with cheese and meat. Piece of chocolate,and coffee and creamer without sugar, For snack he had a protein bar, Burrito frozen one with doughnuts Dinner frozen pizza. Elevated LFTs 02/09/2014 02/09/2014 Diabetes 01/20/2014 11/22/2018 Last Assessment & Plan: Patient is a diabetic but does not really want to come into the clinic . He is not good with following up and coming to the doctors. Tracheobronchitis 09/17/2009 02/09/2014 Cough 09/17/2009 02/09/2014 Esophageal reflux 06/02/2020 documented as of this encounter (statuses as of 06/23/2022) [facility] of [facility] illness Narrative* Problem Noted Date Resolved Date Incisional hernia 06/26/2018 06/02/2020 Family history of colon cancer 05/15/2018 1 Overview: Added automatically from request for surgery [id number] Ventral hernia without obstruction or gangrene 0 04/17/2018 06/02/2020 Overview: Added automatically from request for surgery [id number] Attention to ileostomy 11/06/2017 8 Malnutrition of mild degree 11/06/201705/14 History of rectal cancer 11/05/2017 020 Hypotension 08/06/2017 08/06/[address] 08/06/2017 04/03/2018 Hypokalemia 08/06/2017 08/06/2017 Post-op pain 08/06/2017 06/02/2020 Annual physical exam 05/29/2017 06/02/2020 Overview: Added automatically from request for surgery [id number] Obesity (BMI 30.0-34.9) 07/28/2014 06/02/20 Last Assessment & Plan: He does the tread mill for 5. Lexy then the weights for 5 and repeats this cycle for an hour. For BF he had an omelette with cheese and meat. Piece of chocolate,and coffee and creamer without sugar, For snack he had a protein bar, Burrito frozen one with doughnuts Dinner frozen pizza. Elevated LFTs 02/09/2014 02/09/2014 Diabetes 01/20/2014 11/22/2018 Last Assessment & Plan: Patient is a diabetic but does not really want to come into the clinic . He is not good with following up and coming to the doctors. Tracheobronchitis 09/17/2009 02/09/2014 Cough 09/17/2009 02/09/2014 Esophageal reflux 06/02/2020 documented as of this encounter (statuses as of 06/24/2022) [facility] Narrative* Problem Noted Date Resolved Date Incisional hernia 06/26/2018 06/02/2020 Family history of colon cancer 05/15/2018 1 Overview: Added automatically from request for surgery [id number] Ventral hernia without obstruction or gangrene 0 04/17/2018 06/02/2020 Overview: Added automatically from request for surgery [id number] Attention to ileostomy 11/06/2017 8 Malnutrition of mild degree 11/06/201705/14 History of rectal cancer 11/05/2017 020 Hypotension 08/06/2017 08/06/[address] 08/06/2017 04/03/2018 Hypokalemia 08/06/2017 08/06/2017 Post-op pain 08/06/2017 06/02/2020 Annual physical exam 05/29/2017 06/02/2020 Overview: Added automatically from request for surgery [id number] Obesity (BMI 30.0-34.9) 07/28/2014 06/02/20 Last Assessment & Plan: He does the tread mill for 5. Lexy then the weights for 5 and repeats this cycle for an hour. For BF he had an omelette with cheese and meat. Piece of chocolate,and coffee and creamer without sugar, For snack he had a protein bar, Burrito frozen one with doughnuts Dinner frozen pizza. Elevated LFTs 02/09/2014 02/09/2014 Diabetes 01/20/2014 11/22/2018 Last Assessment & Plan: Patient is a diabetic but does not really want to come into the clinic . He is not good with following up and coming to the doctors. Tracheobronchitis 09/17/2009 02/09/2014 Cough 09/17/2009 02/09/2014 Esophageal reflux 06/02/2020 documented as of this encounter (statuses as of 06/26/2022) [facility]2018 History of Past illness Narrative* Problem Noted Date Resolved Date Incisional hernia 06/26/2018 06/02/2020 Family history of colon cancer 05/15/2018 1 Overview: Added automatically from request for surgery [id number] Ventral hernia without obstruction or gangrene 0 04/17/2018 06/02/2020 Overview: Added automatically from request for surgery [id number] Attention to ileostomy 11/06/2017 8 Malnutrition of mild degree 11/06/201705/14 History of rectal cancer 11/05/2017 020 Hypotension 08/06/2017 08/06/[address] 08/06/2017 04/03/2018 Hypokalemia 08/06/2017 08/06/2017 Post-op pain 08/06/2017 06/02/2020 Annual physical exam 05/29/2017 06/02/2020 Overview: Added automatically from request for surgery [id number] Obesity (BMI 30.0-34.9) 07/28/2014 06/02/20 Last Assessment & Plan: He does the tread mill for 5. Lexy then the weights for 5 and repeats this cycle for an hour. For BF he had an omelette with cheese and meat. Piece of chocolate,and coffee and creamer without sugar, For snack he had a protein bar, Burrito frozen one with doughnuts Dinner frozen pizza. Elevated LFTs 02/09/2014 02/09/2014 Diabetes 01/20/2014 11/22/2018 Last Assessment & Plan: Patient is a diabetic but does not really want to come into the clinic . He is not good with following up and coming to the doctors. Tracheobronchitis 09/17/2009 02/09/2014 Cough 09/17/2009 02/09/2014 Esophageal reflux 06/02/2020 documented as of this encounter (statuses as of 06/27/2022) [facility] History of Past illness Narrative* Problem Noted Date Resolved Date Incisional hernia 06/26/2018 06/02/2020 Family history of colon cancer 05/15/2018 1 Overview: Added automatically from request for surgery [id number] Ventral hernia without obstruction or gangrene 0 04/17/2018 06/02/2020 Overview: Added automatically from request for surgery [id number] Attention to ileostomy 11/06/2017 8 Malnutrition of mild degree 11/06/201705/14 History of rectal cancer 11/05/2017 020 Hypotension 08/06/2017 08/06/[address] 08/06/2017 04/03/2018 Hypokalemia 08/06/2017 08/06/2017 Post-op pain 08/06/2017 06/02/2020 Annual physical exam 05/29/2017 06/02/2020 Overview: Added automatically from request for surgery [id number] Obesity (BMI 30.0-34.9) 07/28/2014 06/02/20 Last Assessment & Plan: He does the tread mill for 5. Lexy then the weights for 5 and repeats this cycle for an hour. For BF he had an omelette with cheese and meat. Piece of chocolate,and coffee and creamer without sugar, For snack he had a protein bar, Burrito frozen one with doughnuts Dinner frozen pizza. Elevated LFTs 02/09/2014 02/09/2014 Diabetes 01/20/2014 11/22/2018 Last Assessment & Plan: Patient is a diabetic but does not really want to come into the clinic . He is not good with following up and coming to the doctors. Tracheobronchitis 09/17/2009 02/09/2014 Cough 09/17/2009 02/09/2014 Esophageal reflux 06/02/2020 documented as of this encounter (statuses as of 06/27/2022) [facility] History of Past illness Narrative* Problem Noted Date Resolved Date Incisional hernia 06/26/2018 06/02/2020 Family history of colon cancer 05/15/2018 1 Overview: Added automatically from request for surgery [id number] Ventral hernia without obstruction or gangrene 0 04/17/2018 06/02/2020 Overview: Added automatically from request for surgery [id number] Attention to ileostomy 11/06/2017 8 Malnutrition of mild degree 11/06/201705/14 History of rectal cancer 11/05/2017 020 Hypotension 08/06/2017 08/06/[address] 08/06/2017 04/03/2018 Hypokalemia 08/06/2017 08/06/2017 Post-op pain 08/06/2017 06/02/2020 Annual physical exam 05/29/2017 06/02/2020 Overview: Added automatically from request for surgery [id number] Obesity (BMI 30.0-34.9) 07/28/2014 06/02/20 Last Assessment & Plan: He does the tread mill for 5. Lexy then the weights for 5 and repeats this cycle for an hour. For BF he had an omelette with cheese and meat. Piece of chocolate,and coffee and creamer without sugar, For snack he had a protein bar, Burrito frozen one with doughnuts Dinner frozen pizza. Elevated LFTs 02/09/2014 02/09/2014 Diabetes 01/20/2014 11/22/2018 Last Assessment & Plan: Patient is a diabetic but does not really want to come into the clinic . He is not good with following up and coming to the doctors. Tracheobronchitis 09/17/2009 02/09/2014 Cough 09/17/2009 02/09/2014 Esophageal reflux 06/02/2020 documented as of this encounter (statuses as of 06/28/2022) [facility] History of Past illness Narrative* Problem Noted Date Resolved Date Incisional hernia 06/26/2018 06/02/2020 Family history of colon cancer 05/15/2018 1 Overview: Added automatically from request for surgery [id number] Ventral hernia without obstruction or gangrene 0 04/17/2018 06/02/2020 Overview: Added automatically from request for surgery [id number] Attention to ileostomy 11/06/2017 8 Malnutrition of mild degree 11/06/201705/14 History of rectal cancer 11/05/2017 020 Hypotension 08/06/2017 08/06/[address] 08/06/2017 04/03/2018 Hypokalemia 08/06/2017 08/06/2017 Post-op pain 08/06/2017 06/02/2020 Annual physical exam 05/29/2017 06/02/2020 Overview: Added automatically from request for surgery [id number] Obesity (BMI 30.0-34.9) 07/28/2014 06/02/20 Last Assessment & Plan: He does the tread mill for 5. Lexy then the weights for 5 and repeats this cycle for an hour. For BF he had an omelette with cheese and meat. Piece of chocolate,and coffee and creamer without sugar, For snack he had a protein bar, Burrito frozen one with doughnuts Dinner frozen pizza. Elevated LFTs 02/09/2014 02/09/2014 Diabetes 01/20/2014 11/22/2018 Last Assessment & Plan: Patient is a diabetic but does not really want to come into the clinic . He is not good with following up and coming to the doctors. Tracheobronchitis 09/17/2009 02/09/2014 Cough 09/17/2009 02/09/2014 Esophageal reflux 06/02/2020 documented as of this encounter (statuses as of 06/29/2022) [facility] History of Past illness Narrative* Problem Noted Date Resolved Date Incisional hernia 06/26/2018 06/02/2020 Family history of colon cancer 05/15/2018 1 Overview: Added automatically from request for surgery [id number] Ventral hernia without obstruction or gangrene 0 04/17/2018 06/02/2020 Overview: Added automatically from request for surgery [id number] Attention to ileostomy 11/06/2017 8 Malnutrition of mild degree 11/06/201705/14 History of rectal cancer 11/05/2017 020 Hypotension 08/06/2017 08/06/[address] 08/06/2017 04/03/2018 Hypokalemia 08/06/2017 08/06/2017 Post-op pain 08/06/2017 06/02/2020 Annual physical exam 05/29/2017 06/02/2020 Overview: Added automatically from request for surgery [id number] Obesity (BMI 30.0-34.9) 07/28/2014 06/02/20 Last Assessment & Plan: He does the tread mill for 5. Lexy then the weights for 5 and repeats this cycle for an hour. For BF he had an omelette with cheese and meat. Piece of chocolate,and coffee and creamer without sugar, For snack he had a protein bar, Burrito frozen one with doughnuts Dinner frozen pizza. Elevated LFTs 02/09/2014 02/09/2014 Diabetes 01/20/2014 11/22/2018 Last Assessment & Plan: Patient is a diabetic but does not really want to come into the clinic . He is not good with following up and coming to the doctors. Tracheobronchitis 09/17/2009 02/09/2014 Cough 09/17/2009 02/09/2014 Esophageal reflux 06/02/2020 documented as of this encounter (statuses as of 07/12/2022) [facility] History of Past illness Narrative* Problem Noted Date Resolved Date Incisional hernia 06/26/2018 06/02/2020 Family history of colon cancer 05/15/2018 1 Overview: Added automatically from request for surgery [id number] Ventral hernia without obstruction or gangrene 0 04/17/2018 06/02/2020 Overview: Added automatically from request for surgery [id number] Attention to ileostomy 11/06/2017 8 Malnutrition of mild degree 11/06/201705/14 History of rectal cancer 11/05/2017 020 Hypotension 08/06/2017 08/06/[address] 08/06/2017 04/03/2018 Hypokalemia 08/06/2017 08/06/2017 Post-op pain 08/06/2017 06/02/2020 Annual physical exam 05/29/2017 06/02/2020 Overview: Added automatically from request for surgery [id number] Obesity (BMI 30.0-34.9) 07/28/2014 06/02/20 Last Assessment & Plan: He does the tread mill for 5. Lexy then the weights for 5 and repeats this cycle for an hour. For BF he had an omelette with cheese and meat. Piece of chocolate,and coffee and creamer without sugar, For snack he had a protein bar, Burrito frozen one with doughnuts Dinner frozen pizza. Elevated LFTs 02/09/2014 02/09/2014 Diabetes 01/20/2014 11/22/2018 Last Assessment & Plan: Patient is a diabetic but does not really want to come into the clinic . He is not good with following up and coming to the doctors. Tracheobronchitis 09/17/2009 02/09/2014 Cough 09/17/2009 02/09/2014 Esophageal reflux 06/02/2020 documented as of this encounter (statuses as of 07/13/2022) [facility] History of Past illness Narrative* Problem Noted Date Resolved Date Incisional hernia 06/26/2018 06/02/2020 Family history of colon cancer 05/15/2018 1 Overview: Added automatically from request for surgery [id number] Ventral hernia without obstruction or gangrene 0 04/17/2018 06/02/2020 Overview: Added automatically from request for surgery [id number] Attention to ileostomy 11/06/2017 8 Malnutrition of mild degree 11/06/201705/14 History of rectal cancer 11/05/2017 020 Hypotension 08/06/2017 08/06/[address] 08/06/2017 04/03/2018 Hypokalemia 08/06/2017 08/06/2017 Post-op pain 08/06/2017 06/02/2020 Annual physical exam 05/29/2017 06/02/2020 Overview: Added automatically from request for surgery [id number] Obesity (BMI 30.0-34.9) 07/28/2014 06/02/20 20 Last Assessment & Plan: He does the tread mill for 5. Lexy then the weights for 5 and repeats this cycle for an hour. For BF he had an omelette with cheese and meat. Piece of chocolate,and coffee and creamer without sugar, For snack he had a protein bar, Burrito frozen one with doughnuts Dinner frozen pizza. Elevated LFTs 02/09/2014 02/09/2014 Diabetes 01/20/2014 11/22/2018 Last Assessment & Plan: Patient is a diabetic but does not really want to come into the clinic . He is not good with following up and coming to the doctors. Tracheobronchitis 09/17/2009 02/09/2014 Cough 09/17/2009 02/09/2014 Esophageal reflux 06/02/2020 documented as of this encounter (statuses as of 08/22/2022) [facility] History of Past illness Narrative* Problem Noted Date Resolved Date Incisional hernia 06/26/2018 06/02/2020 Family history of colon cancer 05/15/2018 1 Overview: Added automatically from request for surgery [id number] Ventral hernia without obstruction or gangrene 0 04/17/2018 06/02/2020 Overview: Added automatically from request for surgery [id number] Attention to ileostomy 11/06/2017 8 Malnutrition of mild degree 11/06/201705/14 History of rectal cancer 11/05/2017 020 Hypotension 08/06/2017 08/06/[address] 08/06/2017 04/03/2018 Hypokalemia 08/06/2017 08/06/2017 Post-op pain 08/06/2017 06/02/2020 Annual physical exam 05/29/2017 06/02/2020 Overview: Added automatically from request for surgery [id number] Obesity (BMI 30.0-34.9) 07/28/2014 06/02/20 20 Last Assessment & Plan: He does the tread mill for 5. Lexy then the weights for 5 and repeats this cycle for an hour. For BF he had an omelette with cheese and meat. Piece of chocolate,and coffee and creamer without sugar, For snack he had a protein bar, Burrito frozen one with doughnuts Dinner frozen pizza. Elevated LFTs 02/09/2014 02/09/2014 Diabetes 01/20/2014 11/22/2018 Last Assessment & Plan: Patient is a diabetic but does not really want to come into the clinic . He is not good with following up and coming to the doctors. Tracheobronchitis 09/17/2009 02/09/2014 Cough 09/17/2009 02/09/2014 Esophageal reflux 06/02/2020 documented as of this encounter (statuses as of 12/13/2022) [facility] History of Past illness Narrative* Problem Noted Date Resolved Date Incisional hernia 06/26/2018 06/02/2020 Family history of colon cancer 05/15/2018 1 Overview: Added automatically from request for surgery [id number] Ventral hernia without obstruction or gangrene 0 04/17/2018 06/02/2020 Overview: Added automatically from request for surgery [id number] Attention to ileostomy 11/06/2017 8 Malnutrition of mild degree 11/06/201705/14 History of rectal cancer 11/05/2017 020 Hypotension 08/06/2017 08/06/[address] 08/06/2017 04/03/2018 Hypokalemia 08/06/2017 08/06/2017 Post-op pain 08/06/2017 06/02/2020 Annual physical exam 05/29/2017 06/02/2020 Overview: Added automatically from request for surgery [id number] Obesity (BMI 30.0-34.9) 07/28/2014 06/02/20 20 Last Assessment & Plan: He does the tread mill for 5. Lexy then the weights for 5 and repeats this cycle for an hour. For BF he had an omelette with cheese and meat. Piece of chocolate,and coffee and creamer without sugar, For snack he had a protein bar, Burrito frozen one with doughnuts Dinner frozen pizza. Elevated LFTs 02/09/2014 02/09/2014 Diabetes 01/20/2014 11/22/2018 Last Assessment & Plan: Patient is a diabetic but does not really want to come into the clinic . He is not good with following up and coming to the doctors. Tracheobronchitis 09/17/2009 02/09/2014 Cough 09/17/2009 02/09/2014 Esophageal reflux 06/02/2020 documented as of this encounter (statuses as of 12/15/2022) [facility] History of Past illness Narrative* Problem Noted Date Resolved Date Incisional hernia 06/26/2018 06/02/2020 Family history of colon cancer 05/15/2018 1 Overview: Added automatically from request for surgery [id number] Ventral hernia without obstruction or gangrene 0 04/17/2018 06/02/2020 Overview: Added automatically from request for surgery [id number] Attention to ileostomy 11/06/2017 8 Malnutrition of mild degree 11/06/201705/14 History of rectal cancer 11/05/2017 020 Hypotension 08/06/2017 08/06/[address] 08/06/2017 04/03/2018 Hypokalemia 08/06/2017 08/06/2017 Post-op pain 08/06/2017 06/02/2020 Annual physical exam 05/29/2017 06/02/2020 Overview: Added automatically from request for surgery [id number] Obesity (BMI 30.0-34.9) 07/28/2014 06/02/20 20 Last Assessment & Plan: He does the tread mill for 5. Lexy then the weights for 5 and repeats this cycle for an hour. For BF he had an omelette with cheese and meat. Piece of chocolate,and coffee and creamer without sugar, For snack he had a protein bar, Burrito frozen one with doughnuts Dinner frozen pizza. Elevated LFTs 02/09/2014 02/09/2014 Diabetes 01/20/2014 11/22/2018 Last Assessment & Plan: Patient is a diabetic but does not really want to come into the clinic . He is not good with following up and coming to the doctors. Tracheobronchitis 09/17/2009 02/09/2014 Cough 09/17/2009 02/09/2014 Esophageal reflux 06/02/2020 documented as of this encounter (statuses as of 01/16/2023) [facility] History of Past illness Narrative* Problem Noted Date Diagnosed Date Resolved Date Incisional hernia 06/26/2018 06/02/2020 Family history of colon cancer 05/15/2018 06/02/2020 Overview: Added automatically from request for surgery [id number] Ventral hernia without obstr uction or gangrene 04/17/2018 06/02/2020 Overview: Added automatically from request for surgery [id number] Attention to ileostomy 11/06/201704/03 Malnutrition of mild degree 11/06/2017 06/02/2020 History of rectal cancer 11/05/2017 Hypotension 08/06/2017 08/06/[address] 08/06/2017 8 Hypokalemia 08/06/2017 08/06/2017 Post-op pain 08/06/2017 06/02/2020 Annual physical exam 05/29/2017 020 Overview: Added automatically from request for surgery [id number] Obesity (BMI 30.0-34.9) 07/28/201405/14 Last Assessment & Plan: He does the tread mill for 5. Lexy then the weights for 5 and repeats this cycle for an hour. For BF he had an omelette with cheese and meat. Piece of chocolate,and coffee and creamer without sugar, For snack he had a protein bar, Burrito frozen one with doughnuts Dinner frozen pizza. Elevated LFTs 02/09/2014 02/09/2014 Diabetes 01/20/2014 11/22/2018 Last Assessment & Plan: Patient is a diabetic but does not really want to come into the clinic . He is not good with following up and coming to the doctors. Tracheobronchitis 09/17/2009 02/09/2014 Cough 09/17/2009 02/09/2014 Esophageal reflux 06/02/2020 documented as of this encounter (statuses as of 05/05/2023) [facility] of Past illness Narrative* Problem Noted Date Diagnosed Date Resolved Date Incisional hernia 06/26/2018 06/02/2020 Family history of colon cancer 05/15/2018 06/02/2020 Overview: Added automatically from request for surgery [id number] Ventral hernia without obstr uction or gangrene 04/17/2018 06/02/2020 Overview: Added automatically from request for surgery [id number] Attention to ileostomy 11/06/201704/03 Malnutrition of mild degree 11/06/2017 06/02/2020 History of rectal cancer 11/05/2017 Hypotension 08/06/2017 08/06/[address] 08/06/2017 8 Hypokalemia 08/06/2017 08/06/2017 Post-op pain 08/06/2017 06/02/2020 Annual physical exam 05/29/2017 020 Overview: Added automatically from request for surgery [id number] Obesity (BMI 30.0-34.9) 07/28/201405/14 Last Assessment & Plan: He does the tread mill for 5. Lexy then the weights for 5 and repeats this cycle for an hour. For BF he had an omelette with cheese and meat. Piece of chocolate,and coffee and creamer without sugar, For snack he had a protein bar, Burrito frozen one with doughnuts Dinner frozen pizza. Elevated LFTs 02/09/2014 02/09/2014 Diabetes 01/20/2014 11/22/2018 Last Assessment & Plan: Patient is a diabetic but does not really want to come into the clinic . He is not good with following up and coming to the doctors. Tracheobronchitis 09/17/2009 02/09/2014 Cough 09/17/2009 02/09/2014 Esophageal reflux 06/02/2020 documented as of this encounter (statuses as of 05/29/2023) [facility] of Past illness Narrative* Problem Noted Date Diagnosed Date Resolved Date Incisional hernia 06/26/2018 06/02/2020 Family history of colon cancer 05/15/2018 06/02/2020 Overview: Added automatically from request for surgery [id number] Ventral hernia without obstr uction or gangrene 04/17/2018 06/02/2020 Overview: Added automatically from request for surgery [id number] Attention to ileostomy 11/06/201704/03 Malnutrition of mild degree 11/06/2017 06/02/2020 History of rectal cancer 11/05/2017 Hypotension 08/06/2017 08/06/[address] 08/06/2017 8 Hypokalemia 08/06/2017 08/06/2017 Post-op pain 08/06/2017 06/02/2020 Annual physical exam 05/29/2017 020 Overview: Added automatically from request for surgery [id number] Obesity (BMI 30.0-34.9) 07/28/201405/14 Last Assessment & Plan: He does the tread mill for 5. Lexy then the weights for 5 and repeats this cycle for an hour. For BF he had an omelette with cheese and meat. Piece of chocolate,and coffee and creamer without sugar, For snack he had a protein bar, Burrito frozen one with doughnuts Dinner frozen pizza. Elevated LFTs 02/09/2014 02/09/2014 Diabetes 01/20/2014 11/22/2018 Last Assessment & Plan: Patient is a diabetic but does not really want to come into the clinic . He is not good with following up and coming to the doctors. Tracheobronchitis 09/17/2009 02/09/2014 Cough 09/17/2009 02/09/2014 Esophageal reflux 06/02/2020 documented as of this encounter (statuses as of 06/01/2023) [facility] of Past illness Narrative* Problem Noted Date Diagnosed Date Resolved Date Incisional hernia 06/26/2018 06/02/2020 Family history of colon cancer 05/15/2018 06/02/2020 Overview: Added automatically from request for surgery [id number] Ventral hernia without obstr uction or gangrene 04/17/2018 06/02/2020 Overview: Added automatically from request for surgery [id number] Attention to ileostomy 11/06/201704/03 Malnutrition of mild degree 11/06/2017 06/02/2020 History of rectal cancer 11/05/2017 Hypotension 08/06/2017 08/06/[address] 08/06/2017 8 Hypokalemia 08/06/2017 08/06/2017 Post-op pain 08/06/2017 06/02/2020 Annual physical exam 05/29/2017 020 Overview: Added automatically from request for surgery [id number] Obesity (BMI 30.0-34.9) 07/28/201405/14 Last Assessment & Plan: He does the tread mill for 5. Lexy then the weights for 5 and repeats this cycle for an hour. For BF he had an omelette with cheese and meat. Piece of chocolate,and coffee and creamer without sugar, For snack he had a protein bar, Burrito frozen one with doughnuts Dinner frozen pizza. Elevated LFTs 02/09/2014 02/09/2014 Diabetes 01/20/2014 11/22/2018 Last Assessment & Plan: Patient is a diabetic but does not really want to come into the clinic . He is not good with following up and coming to the doctors. Tracheobronchitis 09/17/2009 02/09/2014 Cough 09/17/2009 02/09/2014 Esophageal reflux 06/02/2020 documented as of this encounter (statuses as of 06/17/2023) [facility] of Past illness Narrative* Problem Noted Date Diagnosed Date Resolved Date Incisional hernia 06/26/2018 06/02/2020 Family history of colon cancer 05/15/2018 06/02/2020 Overview: Added automatically from request for surgery [id number] Ventral hernia without obstr uction or gangrene 04/17/2018 06/02/2020 Overview: Added automatically from request for surgery [id number] Attention to ileostomy 11/06/201704/03 Malnutrition of mild degree 11/06/2017 06/02/2020 History of rectal cancer 11/05/2017 Hypotension 08/06/2017 08/06/[address] 08/06/2017 8 Hypokalemia 08/06/2017 08/06/2017 Post-op pain 08/06/2017 06/02/2020 Annual physical exam 05/29/2017 020 Overview: Added automatically from request for surgery [id number] Obesity (BMI 30.0-34.9) 07/28/201405/14 Last Assessment & Plan: He does the tread mill for 5. Lexy then the weights for 5 and repeats this cycle for an hour. For BF he had an omelette with cheese and meat. Piece of chocolate,and coffee and creamer without sugar, For snack he had a protein bar, Burrito frozen one with doughnuts Dinner frozen pizza. Elevated LFTs 02/09/2014 02/09/2014 Diabetes 01/20/2014 11/22/2018 Last Assessment & Plan: Patient is a diabetic but does not really want to come into the clinic . He is not good with following up and coming to the doctors. Tracheobronchitis 09/17/2009 02/09/2014 Cough 09/17/2009 02/09/2014 Esophageal reflux 06/02/2020 documented as of this encounter (statuses as of 06/21/2023) [facility] of Past illness Narrative* Problem Noted Date Diagnosed Date Resolved Date Incisional hernia 06/26/2018 06/02/2020 Family history of colon cancer 05/15/2018 06/02/2020 Overview: Added automatically from request for surgery [id number] Ventral hernia without obstr uction or gangrene 04/17/2018 06/02/2020 Overview: Added automatically from request for surgery [id number] Attention to ileostomy 11/06/201704/03 Malnutrition of mild degree 11/06/2017 06/02/2020 History of rectal cancer 11/05/2017 Hypotension 08/06/2017 08/06/[address] 08/06/2017 8 Hypokalemia 08/06/2017 08/06/2017 Post-op pain 08/06/2017 06/02/2020 Annual physical exam 05/29/2017 020 Overview: Added automatically from request for surgery [id number] Obesity (BMI 30.0-34.9) 07/28/201405/14 Last Assessment & Plan: He does the tread mill for 5. Lexy then the weights for 5 and repeats this cycle for an hour. For BF he had an omelette with cheese and meat. Piece of chocolate,and coffee and creamer without sugar, For snack he had a protein bar, Burrito frozen one with doughnuts Dinner frozen pizza. Elevated LFTs 02/09/2014 02/09/2014 Diabetes 01/20/2014 11/22/2018 Last Assessment & Plan: Patient is a diabetic but does not really want to come into the clinic . He is not good with following up and coming to the doctors. Tracheobronchitis 09/17/2009 02/09/2014 Cough 09/17/2009 02/09/2014 Esophageal reflux 06/02/2020 documented as of this encounter (statuses as of 06/27/2023) [facility] History of Past illness Narrative* Problem Noted Date Diagnosed Date Resolved Date Incisional hernia 06/26/2018 06/02/2020 Family history of colon cancer 05/15/2018 06/02/2020 Overview: Added automatically from request for surgery [id number] Ventral hernia without obstr uction or gangrene 04/17/2018 06/02/2020 Overview: Added automatically from request for surgery [id number] Attention to ileostomy 11/06/201704/03 Malnutrition of mild degree 11/06/2017 06/02/2020 Hypotension 08/06/2017 08/06/[address] 08/06/2017 8 Hypokalemia 08/06/2017 08/06/2017 Post-op pain 08/06/2017 06/02/2020 Annual physical exam 05/29/2017 020 Overview: Added automatically from request for surgery [id number] Obesity (BMI 30.0-34.9) 07/28/201405/14 Last Assessment & Plan: He does the tread mill for 5. Lexy then the weights for 5 and repeats this cycle for an hour. For BF he had an omelette with cheese and meat. Piece of chocolate,and coffee and creamer without sugar, For snack he had a protein bar, Burrito frozen one with doughnuts Dinner frozen pizza. Elevated LFTs 02/09/2014 02/09/2014 Diabetes 01/20/2014 11/22/2018 Last Assessment & Plan: Patient is a diabetic but does not really want to come into the clinic . He is not good with following up and coming to the doctors. Tracheobronchitis 09/17/2009 02/09/2014 Cough 09/17/2009 02/09/2014 Esophageal reflux 06/02/2020 documented as of this encounter (statuses as of 09/18/2023) [facility] History of Past illness Narrative* Problem Noted Date Diagnosed Date Resolved Date Incisional hernia 06/26/2018 06/02/2020 Family history of colon cancer 05/15/2018 06/02/2020 Overview: Added automatically from request for surgery [id number] Ventral hernia without obstr uction or gangrene 04/17/2018 06/02/2020 Overview: Added automatically from request for surgery [id number] Attention to ileostomy 11/06/201704/03 Malnutrition of mild degree 11/06/2017 06/02/2020 Hypotension 08/06/2017 08/06/[address] 08/06/2017 8 Hypokalemia 08/06/2017 08/06/2017 Post-op pain 08/06/2017 06/02/2020 Annual physical exam 05/29/2017 020 Overview: Added automatically from request for surgery [id number] Obesity (BMI 30.0-34.9) 07/28/201405/14 Last Assessment & Plan: He does the tread mill for 5. Lexy then the weights for 5 and repeats this cycle for an hour. For BF he had an omelette with cheese and meat. Piece of chocolate,and coffee and creamer without sugar, For snack he had a protein bar, Burrito frozen one with doughnuts Dinner frozen pizza. Elevated LFTs 02/09/2014 02/09/2014 Diabetes 01/20/2014 11/22/2018 Last Assessment & Plan: Patient is a diabetic but does not really want to come into the clinic . He is not good with following up and coming to the doctors. Tracheobronchitis 09/17/2009 02/09/2014 Cough 09/17/2009 02/09/2014 Esophageal reflux 06/02/2020 documented as of this encounter (statuses as of 10/02/2023) [facility] History of Past illness Narrative* Problem Noted Date Diagnosed Date Resolved Date Incisional hernia 06/26/2018 06/02/2020 Family history of colon cancer 05/15/2018 06/02/2020 Overview: Added automatically from request for surgery [id number] Ventral hernia without obstr uction or gangrene 04/17/2018 06/02/2020 Overview: Added automatically from request for surgery [id number] Attention to ileostomy 11/06/201704/03 Malnutrition of mild degree 11/06/2017 06/02/2020 Hypotension 08/06/2017 08/06/[address] 08/06/2017 8 Hypokalemia 08/06/2017 08/06/2017 Post-op pain 08/06/2017 06/02/2020 Annual physical exam 05/29/2017 020 Overview: Added automatically from request for surgery [id number] Obesity (BMI 30.0-34.9) 07/28/201405/14 Last Assessment & Plan: He does the tread mill for 5. Lexy then the weights for 5 and repeats this cycle for an hour. For BF he had an omelette with cheese and meat. Piece of chocolate,and coffee and creamer without sugar, For snack he had a protein bar, Burrito frozen one with doughnuts Dinner frozen pizza. Elevated LFTs 02/09/2014 02/09/2014 Diabetes 01/20/2014 11/22/2018 Last Assessment & Plan: Patient is a diabetic but does not really want to come into the clinic . He is not good with following up and coming to the doctors. Tracheobronchitis 09/17/2009 02/09/2014 Cough 09/17/2009 02/09/2014 Esophageal reflux 06/02/2020 documented as of this encounter (statuses as of 10/02/2023) [facility] History of Past illness Narrative* Problem Noted Date Diagnosed Date Resolved Date Incisional hernia 06/26/2018 06/02/2020 Family history of colon cancer 05/15/2018 06/02/2020 Overview: Added automatically from request for surgery [id number] Ventral hernia without obstr uction or gangrene 04/17/2018 06/02/2020 Overview: Added automatically from request for surgery [id number] Attention to ileostomy 11/06/201704/03 Malnutrition of mild degree 11/06/2017 06/02/2020 Hypotension 08/06/2017 08/06/[address] 08/06/2017 8 Hypokalemia 08/06/2017 08/06/2017 Post-op pain 08/06/2017 06/02/2020 Annual physical exam 05/29/2017 020 Overview: Added automatically from request for surgery [id number] Obesity (BMI 30.0-34.9) 07/28/201405/14 Last Assessment & Plan: He does the tread mill for 5. Lexy then the weights for 5 and repeats this cycle for an hour. For BF he had an omelette with cheese and meat. Piece of chocolate,and coffee and creamer without sugar, For snack he had a protein bar, Burrito frozen one with doughnuts Dinner frozen pizza. Elevated LFTs 02/09/2014 02/09/2014 Diabetes 01/20/2014 11/22/2018 Last Assessment & Plan: Patient is a diabetic but does not really want to come into the clinic . He is not good with following up and coming to the doctors. Tracheobronchitis 09/17/2009 02/09/2014 Cough 09/17/2009 02/09/2014 Esophageal reflux 06/02/2020 documented as of this encounter (statuses as of 10/02/2023) [facility] History of Past illness Narrative* Problem Noted Date Diagnosed Date Resolved Date Incisional hernia 06/26/2018 06/02/2020 Family history of colon cancer 05/15/2018 06/02/2020 Overview: Added automatically from request for surgery [id number] Ventral hernia without obstr uction or gangrene 04/17/2018 06/02/2020 Overview: Added automatically from request for surgery [id number] Attention to ileostomy 11/06/201704/03 Malnutrition of mild degree 11/06/2017 06/02/2020 Hypotension 08/06/2017 08/06/[address] 08/06/2017 8 Hypokalemia 08/06/2017 08/06/2017 Post-op pain 08/06/2017 06/02/2020 Annual physical exam 05/29/2017 020 Overview: Added automatically from request for surgery [id number] Obesity (BMI 30.0-34.9) 07/28/201405/14 Last Assessment & Plan: He does the tread mill for 5. Lexy then the weights for 5 and repeats this cycle for an hour. For BF he had an omelette with cheese and meat. Piece of chocolate,and coffee and creamer without sugar, For snack he had a protein bar, Burrito frozen one with doughnuts Dinner frozen pizza. Elevated LFTs 02/09/2014 02/09/2014 Diabetes 01/20/2014 11/22/2018 Last Assessment & Plan: Patient is a diabetic but does not really want to come into the clinic . He is not good with following up and coming to the doctors. Tracheobronchitis 09/17/2009 02/09/2014 Cough 09/17/2009 02/09/2014 Esophageal reflux 06/02/2020 documented as of this encounter (statuses as of 11/27/2023) [facility] Ot[facility] of both ears- Primary Otalgia, unspecified Dysfunction of Eustachian tube, unspecified laterality Type 2 diabetes mellitus without complication, without long-term current use of insulin (HCC) [facility] Cough- Primary Bronchitis Bronchitis, not specified as acute or chronic [facility] Diagnosis Gross hematuria- Primary Mixed hyperlipidemia Coronary artery disease involving [place] coronary artery of [place] heart without angina pectoris Calculus of other lower urinary tract location Type 2 diabetes mellitus without complication, without long-term current use of insulin (HCC) Chronic bilateral back pain, unspecified back location [facility] [place] [facility] Diagnosis Kidney stones- Primary Calculus of kidney Ureteric stone Calculus of ureter [facility] [place] [facility] Diagnosis Nephrolithiasis- Primary Calculus of kidney Nephrolithiasis Calculus of kidney [facility] [place] [facility]* Diagnosis Kidney stones- Primary Calculus of kidney [facility] [place] [facility]* Diagnosis Hypothyroidism, unspecified type [facility] [place] [facility] Diagnosis Acute bilateral low back pain without sciatica- Primary Type 2 diabetes mellitus without complication, without long-term current use of insulin (HCC) Coronary artery disease involving [place] coronary artery of [place] heart without angina pectoris Mixed hyperlipidemia [facility] [place] [facility]* Diagnosis Type 2 diabetes mellitus without complication, without long-term current use of insulin (HCC)- Primary Burning sensation of feet Disturbance of skin sensation Primary hypertension Unspecified essential hypertension Coronary artery disease involving [place] coronary artery of [place] heart without angina pectoris Mixed hyperlipidemia [facility] [place] [facility] Diagnosis Burning sensation of feet- Primary Disturbance of skin sensation Bilateral foot pain Pain in limb [facility] [place] [facility]* Diagnosis Gross hematuria Calculus of other lower urinary tract location [facility] [place] [facility] Diagnosis Need for vaccination- Primary Need for prophylactic vaccination and inoculation against unspecified single disease [facility] [place] [facility]* Diagnosis Gross hematuria- Primary History of kidney stones Personal history of urinary calculi [facility] [place] [facility] Diagnosis Gross hematuria [facility] [place] [facility]* Diagnosis Kidney stones- Primary Calculus of kidney Abnormal urinalysis Other nonspecific finding on examination of urine [facility] [place] [facility]* Diagnosis Hypothyroidism, unspecified type History of kidney stones Personal history of urinary calculi Vitamin D deficiency Unspecified vitamin D deficiency [facility] [place] [facility]* Diagnosis Medication management Encounter for long-term (current) use of other medications Type 2 diabetes mellitus without complication, without long-term current use of insulin (HCC) [facility] [place] [facility]* Diagnosis Annual physical exam- Primary Routine general medical examination at a health care facility Encounter for immunization Need for other specified prophylactic vaccination against single bacterial disease Mixed hyperlipidemia Morbid obesity (HCC) Morbid obesity Type 2 diabetes mellitus without complication, without long-term current use of insulin (HCC) Rectal cancer (HCC) Malignant neoplasm of rectum Seborrheic keratosis Other seborrheic keratosis [facility] [place] [facility]* Diagnosis Pain of left calf- Primary Pain in limb Edema of left lower extremity Edema documented in this encounter [facility]* Diagnosis Diabetes (HCC)- Primary Type II or unspecified type diabetes mellitus without mention of complication, not stated as uncontrolled Elevated LFTs Other abnormal blood chemistry Hyperlipidemia LDL goal < 70 Other and unspecified hyperlipidemia HYPERLIPIDEMIA NEC/NOS Other and unspecified hyperlipidemia Diabetes (HCC)- Primary Type II or unspecified type diabetes mellitus without mention of complication, not stated as uncontrolled Elevated liver enzymes Other nonspecific abnormal serum enzyme levels Hyperlipidemia LDL goal <70 Other and unspecified hyperlipidemia Routine health maintenance Routine general medical examination at a health care facility Other and unspecified hyperlipidemia Knee pain Pain in joint, lower leg Calf pain- Primary Pain in limb Routine health maintenance Routine general medical examination at a health care facility Diabetes (HCC)- Primary Type II or unspecified type diabetes mellitus without mention of complication, not stated as uncontrolled Other and unspecified hyperlipidemia Erosive esophagitis Other esophagitis Obesity (BMI 30.0-34.9) Obesity, unspecified Cough documented in this encounter [facility]* Diagnosis Diabetes (HCC)- Primary Type II or unspecified type diabetes mellitus without mention of complication, not stated as uncontrolled Elevated LFTs Other abnormal blood chemistry Hyperlipidemia LDL goal < 70 Other and unspecified hyperlipidemia HYPERLIPIDEMIA NEC/NOS Other and unspecified hyperlipidemia Diabetes (HCC)- Primary Type II or unspecified type diabetes mellitus without mention of complication, not stated as uncontrolled Elevated liver enzymes Other nonspecific abnormal serum enzyme levels Hyperlipidemia LDL goal <70 Other and unspecified hyperlipidemia Routine health maintenance Routine general medical examination at a health care facility Other and unspecified hyperlipidemia Knee pain Pain in joint, lower leg Calf pain- Primary Pain in limb Routine health maintenance Routine general medical examination at a health care facility Diabetes (HCC)- Primary Type II or unspecified type diabetes mellitus without mention of complication, not stated as uncontrolled Other and unspecified hyperlipidemia Erosive esophagitis Other esophagitis Obesity (BMI 30.0-34.9) Obesity, unspecified Hypothyroidism, unspecified type Vitamin D deficiency Unspecified vitamin D deficiency documented in this encounter [facility] note* Diagnosis Diabetes (HCC)- Primary Type II or unspecified type diabetes mellitus without mention of complication, not stated as uncontrolled Elevated LFTs Other abnormal blood chemistry Hyperlipidemia LDL goal < 70 Other and unspecified hyperlipidemia HYPERLIPIDEMIA NEC/NOS Other and unspecified hyperlipidemia Diabetes (HCC)- Primary Type II or unspecified type diabetes mellitus without mention of complication, not stated as uncontrolled Elevated liver enzymes Other nonspecific abnormal serum enzyme levels Hyperlipidemia LDL goal <70 Other and unspecified hyperlipidemia Routine health maintenance Routine general medical examination at a health care facility Other and unspecified hyperlipidemia Knee pain Pain in joint, lower leg Calf pain- Primary Pain in limb Routine health maintenance Routine general medical examination at a health care facility Diabetes (HCC)- Primary Type II or unspecified type diabetes mellitus without mention of complication, not stated as uncontrolled Other and unspecified hyperlipidemia Erosive esophagitis Other esophagitis Obesity (BMI 30.0-34.9) Obesity, unspecified Type 2 diabetes mellitus without complication, without long-term current use of insulin (HCC)- Primary Coronary artery disease involving [place] coronary artery of [place] heart without angina pectoris BMI 39.0-39.9,adult Body Mass Index 39.0-39.9, adult Vitamin B12 deficiency Other B-complex deficiencies [facility] Diagnosis Diabetes (HCC)- Primary Type II or unspecified type diabetes mellitus without mention of complication, not stated as uncontrolled Elevated LFTs Other abnormal blood chemistry Hyperlipidemia LDL goal < 70 Other and unspecified hyperlipidemia HYPERLIPIDEMIA NEC/NOS Other and unspecified hyperlipidemia Diabetes (HCC)- Primary Type II or unspecified type diabetes mellitus without mention of complication, not stated as uncontrolled Elevated liver enzymes Other nonspecific abnormal serum enzyme levels Hyperlipidemia LDL goal <70 Other and unspecified hyperlipidemia Routine health maintenance Routine general medical examination at a health care facility Other and unspecified hyperlipidemia Knee pain Pain in joint, lower leg Calf pain- Primary Pain in limb Routine health maintenance Routine general medical examination at a health care facility Diabetes (HCC)- Primary Type II or unspecified type diabetes mellitus without mention of complication, not stated as uncontrolled Other and unspecified hyperlipidemia Erosive esophagitis Other esophagitis Obesity (BMI 30.0-34.9) Obesity, unspecified Hypothyroidism, unspecified type Vitamin D deficiency Unspecified vitamin D deficiency documented in this encounter [facility] for referral (narrative)* Outpatient Procedure (Routine) - Pending Review Specialty Diagnoses / Procedures Referred By Yao hudson Referred To [facility] Diagnoses Cough Bronchitis Procedures METHACHOLINE CHALLENGE INHLJ BRNCL CHALLENGE TSTG W/HISTAM/METHACHOL Bettye Powell MD [address] [place] [address] [address] Referral ID Status Reason Start Date Expiration Date Visits Requested Visits Authorized [id number] Pending Review Auto-Generat ed Referral 01/20/2022 02/19/2023 1 1 * Outpatient Procedure (Routine) - Pending Review Specialty Diagnoses / Procedures Referred By Contac t Referred To [facility] [place] Diagnoses Cough Procedures SPIROMETRY - BASELINE AND POST DILATOR BRNCDILAT RSPSE SPMTRY PRE&POST-BRNCDILAT ADMN Bettye Powell MD [address] [place] [address] [address] Referral ID Status Reason Start Date Expiration Date Visits Requested Visits Authorized [id number] Pending Review Auto-Generat ed Referral 01/20/2022 02/19/2023 1 1 * Outpatient Procedure (Routine) - Pending Review Specialty Diagnoses / Procedures Referred By Contac t Referred To [facility] Diagnoses Cough Procedures LUNG VOLUMES Bettye Powell MD [address] [place] [address] [address] Referral ID Status Reason Start Date Expiration Date Visits Requested Visits Authorized [id number] Pending Review Auto-Generat ed Referral 01/20/2022 02/19/2023 1 1 [facility] for referral (narrative)* Outpatient Procedure (Urgent) - Closed Specialty Diagnoses / Procedures Referred By Contac t Referred To [facility] Diagnoses Pain of left calf Edema of left lower extremity Procedures US LEG VEIN DVT UNL VAS LAB DUP-SCAN XTR VEINS UNILATERAL/LIMITED STUDY Dewey, Lizeth M, HANNY.[employer]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 [address] [place] [address] [facility] [place] [address] [place] [address] Referral ID Status Reason Start Date Expiration Date V isits Requested Visits Authorized [id number] Closed Auto-Generate d Referral 03/19/2024 03/19/2025 1 1 [facility] Advance Directives Documents on File Type Date Recorded Patient Breaker Off Expl anation Advance Directive(s) 07/02/2020 7:49 AM Advance Directive(s) 06/24/2020 3:27 PM Advance Directive(s) 06/26/2019 6:46 AM Advance Directive(s) 06/24/2018 1:40 PM Advance Directive(s) 05/29/2018 7:31 AM Advance Directive(s) 10/26/2017 1:16 PM Advance Directive(s) 07/25/2017 9:49 AM Advance Directive(s) 07/23/2017 2:35 PM Advance Directive(s) 07/20/2017 2:40 PM Advance Directive(s) 06/13/2017 9:02 AM Documents on File Type Date Recorded Patient Breaker Off Expl anation Advance Directive(s) 07/02/2020 7:49 AM Advance Directive(s) 06/24/2020 3:27 PM Advance Directive(s) 06/26/2019 6:46 AM Advance Directive(s) 06/24/2018 1:40 PM Advance Directive(s) 05/29/2018 7:31 AM Advance Directive(s) 10/26/2017 1:16 PM Advance Directive(s) 07/25/2017 9:49 AM Advance Directive(s) 07/23/2017 2:35 PM Advance Directive(s) 07/20/2017 2:40 PM Advance Directive(s) 06/13/2017 9:02 AM Documents on File Type Date Recorded Patient Breaker Off Expl anation Advance Directive(s) 07/25/2017 9:49 AM Documents on File Type Date Recorded Patient Breaker Off Expl anation Advance Directive(s) 07/25/2017 9:49 AM Reason for Referral Specialty Diagnoses / Procedures Referred By Yao t Referred To Contact CT IMAGING Diagnoses Gross hematuria Calculus of other lower urinary tract location Procedures CT FLANK WO IVCON CT ABD & PELVIS W/O CONTRAST Bettye Powell MD [facility] [place] [address] Ct Imaging Referral ID Status Reason Start Date Expiration Date Visits Requested Visits Authorized [id number] Pending Review Auto-Generat ed Referral 2 07/22/2023 1 1 Specialty Diagnoses / Procedures Referred By Contac t Referred To Contact Urology Diagnoses Gross hematuria Calculus of other lower urinary tract location Procedures CONSULT TO UROLOGY OFFICE/OUTPATIENT [facility] 60-74 MINUTES Bettye Powell MD [address] [place] [address] Referral ID Status Reason Start Date Expiration Date Visits Requested Visits Authorized [id number] Authorized PCP Requested Referral 2 06/22/2023 1 1 Specialty Diagnoses / Procedures Referred By Contac t Referred To Contact Diagnoses Nephrolithiasis Procedures REFER TO PACC - PRE ANESTHESIA CONSULTATION CLINIC OFFICE/OUTPATIENT [facility] 60-74 MINUTES Chacho Donis MD [address] [place] [address] Referral ID Status Reason Start Date Expiration Date Visits Requested Visits Authorized [id number] Authorized PCP Requested Referral 2 06/27/2023 1 1 Specialty Diagnoses / Procedures Referred By Contac t Referred To Contact CT IMAGING Diagnoses Gross hematuria Calculus of other lower urinary tract location Procedures CT FLANK WO IVCON CT ABD & PELVIS W/O CONTRAST Bettye Powell MD [address] [place] [address] [address] [facility] [place] [address] Referral ID Status Reason Start Date Expiration Date V isits Requested Visits Authorized [id number] Closed Auto-Generate d Referral 06/23/2022 07/22/2022 1 1 Specialty Diagnoses / Procedures Referred By Contac t Referred To Contact CT IMAGING Diagnoses Gross hematuria Procedures CT UROGRAM WO/W IVCON CT ABD & PELVIS W/WO CONTRST 1+ BODY Everette Whitney, HPLC CHEMIST.SENIOR CONTROL SYSTEMS ENGINEER, DNP [address] [place] [address] [place] [address] Referral ID Status Reason Start Date Expiration Date Visits Requested Visits Authorized [id number] Authorized Auto-Generat ed Referral 09/24/2023 10/16/2024 1 1 Referral ID Status Reason Start Date Expiration Date V isits Requested Visits Authorized [id number] Closed Auto-Generate d Referral 09/24/2023 10/16/2024 1 1 Summary Purpose Family History No Family History Records FoundNo Family History Records FoundNo Family History Records Found Additional Source Comments Source Comments (unrecognize d section and content) In the event this informatio n is protected by the Federal Confidentiality of Alcohol and Drug Abuse Patient Records regulations: The Federal rules restrict any use of the information to criminally investigate or prosecute any alcohol or drug abuse patient.[facility] Center[facility] the event this information is protected by the Federal Confidentiality of Alcohol and Drug Abuse Patient Records regulations: The Federal rules restrict any use of the information to criminally investigate or prosecute any alcohol or drug abuse patient.[facility] CenterIn the event this information is protected by the Federal Confidentiality of Alcohol and Drug Abuse Patient Records regulations: The Federal rules restrict any use of the information to criminally investigate or prosecute any alcohol or drug abuse patient.[facility] CenterIn the event this information is protected by the Federal Confidentiality of Alcohol and Drug Abuse Patient Records regulations: The Federal rules restrict any use of the information to criminally investigate or prosecute any alcohol or drug abuse patient.[facility] CenterIn the event this information is protected by the Federal Confidentiality of Alcohol and Drug Abuse Patient Records regulations: The Federal rules restrict any use of the information to criminally investigate or prosecute any alcohol or drug abuse patient.[facility] CenterIn the event this information is protected by the Federal Confidentiality of Alcohol and Drug Abuse Patient Records regulations: The Federal rules restrict any use of the information to criminally investigate or prosecute any alcohol or drug abuse patient.[facility] CenterIn the event this information is protected by the Federal Confidentiality of Alcohol and Drug Abuse Patient Records regulations: The Federal rules restrict any use of the information to criminally investigate or prosecute any alcohol or drug abuse patient.[facility] CenterIn the event this information is protected by the Federal Confidentiality of Alcohol and Drug Abuse Patient Records regulations: The Federal rules restrict any use of the information to criminally investigate or prosecute any alcohol or drug abuse patient.[facility] CenterIn the event this information is protected by the Federal Confidentiality of Alcohol and Drug Abuse Patient Records regulations: The Federal rules restrict any use of the information to criminally investigate or prosecute any alcohol or drug abuse patient.[facility] CenterIn the event this information is protected by the Federal Confidentiality of Alcohol and Drug Abuse Patient Records regulations: The Federal rules restrict any use of the information to criminally investigate or prosecute any alcohol or drug abuse patient.[facility] CenterIn the event this information is protected by the Federal Confidentiality of Alcohol and Drug Abuse Patient Records regulations: The Federal rules restrict any use of the information to criminally investigate or prosecute any alcohol or drug abuse patient.[facility] CenterIn the event this information is protected by the Federal Confidentiality of Alcohol and Drug Abuse Patient Records regulations: The Federal rules restrict any use of the information to criminally investigate or prosecute any alcohol or drug abuse patient.[facility] CenterIn the event this information is protected by the Federal Confidentiality of Alcohol and Drug Abuse Patient Records regulations: The Federal rules restrict any use of the information to criminally investigate or prosecute any alcohol or drug abuse patient.[facility] CenterIn the event this information is protected by the Federal Confidentiality of Alcohol and Drug Abuse Patient Records regulations: The Federal rules restrict any use of the information to criminally investigate or prosecute any alcohol or drug abuse patient.[facility] CenterIn the event this information is protected by the Federal Confidentiality of Alcohol and Drug Abuse Patient Records regulations: The Federal rules restrict any use of the information to criminally investigate or prosecute any alcohol or drug abuse patient.[facility] CenterIn the event this information is protected by the Federal Confidentiality of Alcohol and Drug Abuse Patient Records regulations: The Federal rules restrict any use of the information to criminally investigate or prosecute any alcohol or drug abuse patient.[facility] CenterIn the event this information is protected by the Federal Confidentiality of Alcohol and Drug Abuse Patient Records regulations: The Federal rules restrict any use of the information to criminally investigate or prosecute any alcohol or drug abuse patient.[facility] CenterIn the event this information is protected by the Federal Confidentiality of Alcohol and Drug Abuse Patient Records regulations: The Federal rules restrict any use of the information to criminally investigate or prosecute any alcohol or drug abuse patient.[facility] CenterIn the event this information is protected by the Federal Confidentiality of Alcohol and Drug Abuse Patient Records regulations: The Federal rules restrict any use of the information to criminally investigate or prosecute any alcohol or drug abuse patient.[facility] CenterIn the event this information is protected by the Federal Confidentiality of Alcohol and Drug Abuse Patient Records regulations: The Federal rules restrict any use of the information to criminally investigate or prosecute any alcohol or drug abuse patient.[facility] CenterIn the event this information is protected by the Federal Confidentiality of Alcohol and Drug Abuse Patient Records regulations: The Federal rules restrict any use of the information to criminally investigate or prosecute any alcohol or drug abuse patient.[facility] CenterIn the event this information is protected by the Federal Confidentiality of Alcohol and Drug Abuse Patient Records regulations: The Federal rules restrict any use of the information to criminally investigate or prosecute any alcohol or drug abuse patient.[facility] CenterIn the event this information is protected by the Federal Confidentiality of Alcohol and Drug Abuse Patient Records regulations: The Federal rules restrict any use of the information to criminally investigate or prosecute any alcohol or drug abuse patient.[facility] CenterIn the event this information is protected by the Federal Confidentiality of Alcohol and Drug Abuse Patient Records regulations: The Federal rules restrict any use of the information to criminally investigate or prosecute any alcohol or drug abuse patient.[facility] CenterIn the event this information is protected by the Federal Confidentiality of Alcohol and Drug Abuse Patient Records regulations: The Federal rules restrict any use of the information to criminally investigate or prosecute any alcohol or drug abuse patient.[facility] CenterIn the event this information is protected by the Federal Confidentiality of Alcohol and Drug Abuse Patient Records regulations: The Federal rules restrict any use of the information to criminally investigate or prosecute any alcohol or drug abuse patient.[facility] CenterIn the event this information is protected by the Federal Confidentiality of Alcohol and Drug Abuse Patient Records regulations: The Federal rules restrict any use of the information to criminally investigate or prosecute any alcohol or drug abuse patient.[facility] CenterIn the event this information is protected by the Federal Confidentiality of Alcohol and Drug Abuse Patient Records regulations: The Federal rules restrict any use of the information to criminally investigate or prosecute any alcohol or drug abuse patient.[facility] CenterIn the event this information is protected by the Federal Confidentiality of Alcohol and Drug Abuse Patient Records regulations: The Federal rules restrict any use of the information to criminally investigate or prosecute any alcohol or drug abuse patient.[facility] CenterIn the event this information is protected by the Federal Confidentiality of Alcohol and Drug Abuse Patient Records regulations: The Federal rules restrict any use of the information to criminally investigate or prosecute any alcohol or drug abuse patient.[facility] CenterIn the event this information is protected by the Federal Confidentiality of Alcohol and Drug Abuse Patient Records regulations: The Federal rules restrict any use of the information to criminally investigate or prosecute any alcohol or drug abuse patient.[facility] CenterIn the event this information is protected by the Federal Confidentiality of Alcohol and Drug Abuse Patient Records regulations: The Federal rules restrict any use of the information to criminally investigate or prosecute any alcohol or drug abuse patient.[facility] CenterIn the event this information is protected by the Federal Confidentiality of Alcohol and Drug Abuse Patient Records regulations: The Federal rules restrict any use of the information to criminally investigate or prosecute any alcohol or drug abuse patient.[facility] CenterIn the event this information is protected by the Federal Confidentiality of Alcohol and Drug Abuse Patient Records regulations: The Federal rules restrict any use of the information to criminally investigate or prosecute any alcohol or drug abuse patient.[facility] CenterIn the event this information is protected by the Federal Confidentiality of Alcohol and Drug Abuse Patient Records regulations: The Federal rules restrict any use of the information to criminally investigate or prosecute any alcohol or drug abuse patient.[facility] CenterIn the event this information is protected by the Federal Confidentiality of Alcohol and Drug Abuse Patient Records regulations: The Federal rules restrict any use of the information to criminally investigate or prosecute any alcohol or drug abuse patient.[facility] CenterIn the event this information is protected by the Federal Confidentiality of Alcohol and Drug Abuse Patient Records regulations: The Federal rules restrict any use of the information to criminally investigate or prosecute any alcohol or drug abuse patient.[facility] CenterIn the event this information is protected by the Federal Confidentiality of Alcohol and Drug Abuse Patient Records regulations: The Federal rules restrict any use of the information to criminally investigate or prosecute any alcohol or drug abuse patient.[facility] CenterIn the event this information is protected by the Federal Confidentiality of Alcohol and Drug Abuse Patient Records regulations: The Federal rules restrict any use of the information to criminally investigate or prosecute any alcohol or drug abuse patient.[facility] CenterIn the event this information is protected by the Federal Confidentiality of Alcohol and Drug Abuse Patient Records regulations: The Federal rules restrict any use of the information to criminally investigate or prosecute any alcohol or drug abuse patient.[facility] CenterIn the event this information is protected by the Federal Confidentiality of Alcohol and Drug Abuse Patient Records regulations: The Federal rules restrict any use of the information to criminally investigate or prosecute any alcohol or drug abuse patient.[facility] CenterIn the event this information is protected by the Federal Confidentiality of Alcohol and Drug Abuse Patient Records regulations: The Federal rules restrict any use of the information to criminally investigate or prosecute any alcohol or drug abuse patient.[facility] CenterIn the event this information is protected by the Federal Confidentiality of Alcohol and Drug Abuse Patient Records regulations: The Federal rules restrict any use of the information to criminally investigate or prosecute any alcohol or drug abuse patient.[facility] CenterIn the event this information is protected by the Federal Confidentiality of Alcohol and Drug Abuse Patient Records regulations: The Federal rules restrict any use of the information to criminally investigate or prosecute any alcohol or drug abuse patient.[facility] CenterIn the event this information is protected by the Federal Confidentiality of Alcohol and Drug Abuse Patient Records regulations: The Federal rules restrict any use of the information to criminally investigate or prosecute any alcohol or drug abuse patient.[facility] CenterIn the event this information is protected by the Federal Confidentiality of Alcohol and Drug Abuse Patient Records regulations: The Federal rules restrict any use of the information to criminally investigate or prosecute any alcohol or drug abuse patient.[facility] CenterIn the event this information is protected by the Federal Confidentiality of Alcohol and Drug Abuse Patient Records regulations: The Federal rules restrict any use of the information to criminally investigate or prosecute any alcohol or drug abuse patient.[facility] CenterIn the event this information is protected by the Federal Confidentiality of Alcohol and Drug Abuse Patient Records regulations: The Federal rules restrict any use of the information to criminally investigate or prosecute any alcohol or drug abuse patient.[facility] CenterIn the event this information is protected by the Federal Confidentiality of Alcohol and Drug Abuse Patient Records regulations: The Federal rules restrict any use of the information to criminally investigate or prosecute any alcohol or drug abuse patient.[facility] Reason for Visit (unrecogniz ed section and content) Reason Comments Results Reason Comments Cough Reason Comments Patient Request Reason Onset Date Comments Refill Request 12/30/2021 Reason Comments Ear Pain Dizziness Reason Comments Patient Update Reason Comments Established Patient c/o coughing and SOB Reason Onset Date Comments Refill Request 01/23/2022 Reason Onset Date Comments Refill Request 02/01/2022 Reason Comments Kidney Problem Reason Comments Hematuria 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 Reason Comments Information Reason Onset Date Comments Opened In Error 06/27/2022 Reason Comments Patient Update Appointment Reason Comments Surgery Scheduled Reason Comments Appointment Reason Comments Post-Op Visit Reason Comments Refill Request Reason Comments Back Pain Lower back pain x 4- 5 days Recheck Appointment moved up from 12/20 Reason Onset Date Comments Refill Request 01/15/2023 Reason Comments Pain (foot) B/L feet pain x 1 we ek Reason Comments Patient Question Reason Comments Foot Arch Support Orders Reason Comments Radiology CT Specialty Diagnoses / Procedures Referred By Contac t Referred To Contact CT IMAGING Diagnoses Gross hematuria Calculus of other lower urinary tract location Procedures CT FLANK WO IVCON CT ABD & PELVIS W/O CONTRAST Bettye Powell MD [address] [place] [address] [place] [address] Referral ID Status Reason Start Date Expiration Date V isits Requested Visits Authorized [id number] Closed Auto-Generate d Referral 06/23/2022 07/22/2022 1 1 Reason Comments Diarrhea Reason Comments vaccine question Reason Comments Kidney Stones Specialty Diagnoses / Procedures Referred By Contac t Referred To Contact CT IMAGING Diagnoses Gross hematuria Procedures CT UROGRAM WO/W IVCON CT ABD & PELVIS W/WO CONTRST 1+ BODY Everette Whitney, HPLC CHEMIST.SENIOR CONTROL SYSTEMS ENGINEER, DNP [address] [place] [address] [place] [address] Referral ID Status Reason Start Date Expiration Date V isits Requested Visits Authorized [id number] Closed Auto-Generate d Referral 09/24/2023 10/16/2024 1 1 Reason Comments Results Appointment Reason Onset Date Comments Refill Request 11/26/2023 Reason Comments 6 month follow up Reason Comments left lower leg swelling/pain x 24 hours Reason Onset Date Comments Refill Request 05/10/2024 Reason Comments 08/31/2023 COLON/EGD [facility] Reason Comments Follow Up Reason Onset Date Comments Refill Request 09/26/2024 Care Teams (unrecognized sec tion and content) Estate Administrator Relationship Specialty Start Date End Date Bettye Powell MD [address] [place] [address] PCP - General Internal Medicine 02/09/14 Estate Administrator Relationship Specialty Start Date End Date Bettye Powell MD [address] [place] [address] PCP - General Internal Medicine 02/09/14 Estate Administrator Relationship Specialty Start Date End Date Bettye Powell MD [address] [place] [address] PCP - General Internal Medicine 02/09/14 Estate Administrator Relationship Specialty Start Date End Date Bettye Powell MD [address] [place] [address] PCP - General Internal Medicine 02/09/14 Estate Administrator Relationship Specialty Start Date End Date Bettye Powell MD [address] [place] [address] PCP - General Internal Medicine 02/09/14 Estate Administrator Relationship Specialty Start Date End Date Bettye Powell MD [address] [place] [address] PCP - General Internal Medicine 02/09/14 Estate Administrator Relationship Specialty Start Date End Date Bettye Powell MD [address] [place] [address] PCP - General Internal Medicine 02/09/14 Estate Administrator Relationship Specialty Start Date End Date Bettye Powell MD [address] [place] [address] PCP - General Internal Medicine 02/09/14 Estate Administrator Relationship Specialty Start Date End Date Bettye Powell MD [address] [place] [address] PCP - General Internal Medicine 02/09/14 Estate Administrator Relationship Specialty Start Date End Date Bettye Powell MD [address] [place] [address] PCP - General Internal Medicine 02/09/14 Estate Administrator Relationship Specialty Start Date End Date Bettye Powell MD [address] [place] [address] PCP - General Internal Medicine 02/09/14 Estate Administrator Relationship Specialty Start Date End Date Bettye Powell MD [address] [place] [address] PCP - General Internal Medicine 02/09/14 Estate Administrator Relationship Specialty Start Date End Date Bettye Powell MD [address] [place] [address] PCP - General Internal Medicine 02/09/14 Estate Administrator Relationship Specialty Start Date End Date Bettye Powell MD [address] [place] [address] PCP - General Internal Medicine 02/09/14 Estate Administrator Relationship Specialty Start Date End Date Bettye Powell MD [address] [place] [address] PCP - General Internal Medicine 02/09/14 Estate Administrator Relationship Specialty Start Date End Date Bettye Powell MD [address] [place] [address] PCP - General Internal Medicine 02/09/14 Estate Administrator Relationship Specialty Start Date End Date Bettye Powell MD [address] [place] [address] PCP - General Internal Medicine 02/09/14 Estate Administrator Relationship Specialty Start Date End Date Bettye Powell MD [address] [place] [address] PCP - General Internal Medicine 02/09/14 Estate Administrator Relationship Specialty Start Date End Date Bettye Powell MD [address] [place] [address] PCP - General Internal Medicine 02/09/14 Estate Administrator Relationship Specialty Start Date End Date Bettye Powell MD [address] [place] [address] PCP - General Internal Medicine 02/09/14 Estate Administrator Relationship Specialty Start Date End Date Bettye Powell MD [address] [place] [address] PCP - General Internal Medicine 02/09/14 Estate Administrator Relationship Specialty Start Date End Date Bettye Powell MD [address] [place] [address] PCP - General Internal Medicine 02/09/14 Estate Administrator Relationship Specialty Start Date End Date Bettye Powell MD [address] [place] [address] PCP - General Internal Medicine 02/09/14 Estate Administrator Relationship Specialty Start Date End Date Bettye Powell MD [address] [place] [address] PCP - General Internal Medicine 02/09/14 Estate Administrator Relationship Specialty Start Date End Date Bettye Powell MD [address] [place] [address] PCP - General Internal Medicine 02/09/14 Estate Administrator Relationship Specialty Start Date End Date Bettye Powell MD [address] [place] [address] PCP - General Internal Medicine 02/09/14 Estate Administrator Relationship Specialty Start Date End Date Bettye Powell MD [address] [place] [address] PCP - General Internal Medicine 02/09/14 Estate Administrator Relationship Specialty Start Date End Date Bettye Powell MD [address] [place] [address] PCP - General Internal Medicine 02/09/14 Estate Administrator Relationship Specialty Start Date End Date Bettye Powell MD [address] [place] [address] PCP - General Internal Medicine 02/09/14 Estate Administrator Relationship Specialty Start Date End Date Bettye Powell MD [address] [place] [address] PCP - General Internal Medicine 02/09/14 Estate Administrator Relationship Specialty Start Date End Date Bettye Powell MD [address] [place] [address] PCP - General Internal Medicine 02/09/14 Estate Administrator Relationship Specialty Start Date End Date Bettye Powell MD [address] [place] [address] PCP - General Internal Medicine 02/09/14 Estate Administrator Relationship Specialty Start Date End Date Bettye Powell MD [address] [place] [address] PCP - General Internal Medicine 02/09/14 Estate Administrator Relationship Specialty Start Date End Date Bettye Powell MD [address] [place] [address] PCP - General Internal Medicine 02/09/14 Estate Administrator Relationship Specialty Start Date End Date Bettye Powell MD [address] [place] [address] PCP - General Internal Medicine 02/09/14 Rachel Guthrie PA-C [address] [place] [phone] Lease Analyst Family Medicine 07/20/24 Amada Muro, HANNY.SENIOR CONTROL SYSTEMS ENGINEER [address] [place] [address] Lease Analyst Internal Medicine 07/20/24 Rere Gonzales PA-C [address] [place] [address] Lease Analyst Family Medicine 07/20/24 Estate Administrator Relationship Specialty Start Date End Date Bettye Powell MD [address] [place] [address] PCP - General Internal Medicine 02/09/14 Rachel Guthrie PA-C [address] [place], [place] [phone] Lease Analyst Family Medicine 07/20/24 Amada Muro, HANNY.SENIOR CONTROL SYSTEMS ENGINEER [address] [place] [address] Lease Analyst Internal Medicine 07/20/24 Rere Gonzales PA-C [address] [place] [address] Lease Analyst Family Medicine 07/20/24 (unrecognized sect ion and content) No Status Records FoundNo Status Records FoundNo Status Records Found INFORMATION SOURCE (unrecogn ized section and content) DATE CREATED AUTHOR 07/15/2022 [facility] DATE CREATED AUTHOR AUTHOR'S ORGANIZ ATION 03/18/2024 [facility] DATE CREATED AUTHOR AUTHOR'S ORGANIZ ATION 09/08/2024 [facility] FOR RECORDS PERTAINING TO PATIENTS WHO ARE OR HAVE BEEN ENROLLED IN A CHEMICAL DEPENDENCY/SUBSTANCEABUSE PROGRAM, SOME INFORMATION MAY BE OMITTED. This clinical summary was aggregated from multiple sources. Caution should be exercised in using it in the provision of clinical care. This summary normalizes information from multiple sources, and as a consequence, information in this document may materially change the coding, format and clinical context of patient data. In addition, data may be omitted in some cases. CLINICAL DECISIONS SHOULD BE BASED ON THE PRIMARY CLINICAL RECORDS. [facility]. provides no warranty or guarantee of the accuracy or completeness of information in this document.
[2025-01-14 03:12] LABS: Absolute Lymphocyte Count 3.39 X10^3/uL (0.83-4.51); Absolute Neutrophil Count 7.4 X10^3/uL (2.0-7.7); Basophil# 0.08 X10^3/uL; Basophil% 0.6 % (0-1); Eosinophil# 0.37 X10^3/uL; Hematocrit 40.4 % (40-54); Hemoglobin 12.8 g/dL (13.0-16.5); Lymphocyte # 3.39 X10^3/ul (0.83-4.51); Lymphocyte % 27.2 % (19-41); Mean Corp Hgb Conc 31.7 g/dL (32-36); Mean Corpuscular Hgb 25.3 pg (27.0-32.0); Monocyte# 1.18 X10^3/uL; Monocyte% 9.5 % (0-10); NRBC Flagged by Analyzer 0 % (0-5); Neutrophil # 7.39 X10^3/uL (2.7-7.7); Neutrophil % 59.3 % (47-70); Platelet Count 319 K/mm3 (150-450); RBC Distribution Width CV 15.3 % (11.6-14.6); RBC Distribution Width SD 44.1 fl (35.1-43.9); Red Blood Count 5.05 M/mm3 (4.6-6.2); White Blood Count 12.5 K/mm3 (4.4-11.0)
[2025-01-14 03:19] LABS: Partial Thromboplast Time 29.9 Seconds (24.1-36.2)
[2025-01-14 03:27] LABS: Anion Gap 14 (5-15); BUN 11 mg/dL (4-19); BUN/Creat Ratio 11.9 RATIO (10-20); Calcium,Total 9.3 mg/dL (7.6-11.0); Carbon Dioxide 22.7 mmol/L (21.0-32.0); Chloride 100 mmol/L (98-108); Creatinine, Serum 0.93 mg/dL (0.70-1.20); EST Glomerular Filtration Rate 93 (>60); Estimated Creatinine Clearance 107.61 ml/min (50-250); Glucose 139 mg/dL (70-99); Potassium 3.7 mmol/L (3.3-5.1); Sodium Level 137 mmol/L (133-145)
[2025-01-14] MEDS: 0.9% Normal Saline (1000mL) 1,000 ML 100 ML IV ×2 (03:57→15:28)
[2025-01-14 03:59] LABS: Bacteria 0 SEEN /hpf (None Seen); Mucous, Urine 0 SEEN /hpf (<or=2+); Red Blood Cells-Urine 0 SEEN /hpf (0-5); Squamous Epithelial Cells - UA 0 SEEN /hpf (0-5); White Blood Cells 0 SEEN /hpf (0-5)
[2025-01-14 04:01] LABS: Glucose, Dipstick Normal (Normal); Ketone-Dipstick Negative (Negative); Leukocyte Esterase-Dipstick Negative /ul (Negative); Nitrite-Dipstick Negative (Negative); Occult Blood-Urine Negative /ul (Negative); Protein-Dipstick Negative (Negative); Urine Bilirubin Dipstick Negative (Negative); Urine Urobilinogen Normal (Normal); Urine pH 6.5 (5.0 - 8.0)
--- NOTE | 2025-01-14 04:01 | PCM.HP.STD ---
HPI - General General Date of Admission: 01/14/25 Date of Service: 01/14/25 Chief Complaint: Facial palsy, dysarthria, R sided weakness. HPI Narrative The patient is a 64 y/o M w/ PMHx: Chronic normocytic anemia, Obesity, GERD, RLS, Hypothyroidism, Hx Colon CA status post partial colectomy ileostomy HTN, HLD, Diabetes mellitus type II, CAD s/p PCI, Former tobacco use who presents to the [facility] ED on 01/14/2025 with history of onset right-sided facial droop, right-sided weakness and slurred speech with initial ED presentation NIH stroke scale assessment 841 facial palsy, 3 right arm, 3 right leg, 1 for mild to moderate dysarthria. Follow-up NIH stroke scale assessment at 330 noted to be 6 with 1 for minor paralysis, 2 for right upper extremity weakness, 2 for right lower extremity weakness and 1 for mild to moderate dysarthria totaling 6. Stroke alert initiated and patient administered tenecteplase. Patient went to bed approximately 11 PM the evening prior which was his last known well and woke up at 1:30 in the morning with symptoms never having occurred previously. Workup in the ED included T98.2, heart 72, BP 160/89, respiratory rate 20, 95% on room air with most recent repeat vitals heart rate 74, BP 147/90, respiratory rate 20, 99% room air, CBC with WBC 12.5, hemoglobin 12.8, MCV 80, platelet 319 without marked shift, unremarkable coags, BMP with glucose 139 otherwise not marked appearing, CT of the brain with no acute intracranial findings, CTA head and neck w/ no hemodynamically significant narrowing or large vessel occlusion of the head or neck vasculature, chest x-ray pending upon evaluation, EKG with SR without acute evidence of ischemia. NIH stroke scale assessment per neurology with 1 for minor paralysis, 7 total for right-sided weakness, 1 for mild to moderate dysarthria with a total of 9. Unfortunately patient was taking the out of the tenecteplase window. [facility] Medical History Essential hypertension Hypothyroidism History of colon cancer History of non-ST elevation myocardial infarction (NSTEMI) (10/24/18) Type 2 diabetes mellitus Obesity RLS (restless legs syndrome) GERD (gastroesophageal reflux disease) Atherosclerotic heart disease of [place] coronary artery without angina pectoris ACS (acute coronary syndrome) (10/24/18) Home Medications ?Medication ?Instructions ?Recorded ?Last Taken ?Type ergocalciferol (vitamin D2) 1,250 50,000 mg PO WE vitamin 10/24/18 10/17/18 History mcg (50,000 unit) capsule latanoprost 0.005 % eye drops 0.005 drp EACH EYE QHS glaucoma 10/24/18 10/23/18 History multivitamin 1 ea PO DAILY vitamin 10/24/18 10/23/18 History aspirin 81 mg tablet,delayed 81 mg PO DAILY@0800 10/25/18 Unknown Rx release pantoprazole 40 mg tablet,delayed 40 mg PO DAILY 12/09/19 Unknown History release levothyroxine 50 mcg tablet 50 mcg PO DAILY 02/22/21 Unknown History metoprolol tartrate 25 mg tablet 12.5 mg (1/2 x 25 mg) PO BID #90 03/12/23 Unknown Rx tabs metformin 500 mg tablet 750 mg PO BID diabetes 03/18/24 Unknown History nitroglycerin 0.4 mg sublingual 0.4 mg sublingual Q5-15M PRN chest 05/13/24 Unknown Rx tablet pain #25 tabs losartan 50 mg tablet 50 mg PO DAILY #90 tabs 09/29/24 Unknown Rx Allergy/AdvReac Type Severity Reaction Status Date / Time atorvastatin AdvReac Intermediate Acid reflux Verified 01/14/25 03:03 rosuvastatin (From Crestor) AdvReac Intermediate Acid Verified 01/14/25 03:03 reflux, cough Family History (Updated 01/14/25 @ 04:[address] Gladys Marin MD) Grandmother CAD (coronary artery disease) Sister Pulmonary embolism Mother Autoimmune hepatitis other (Patient does not know his father or paternal family history.) Surgical History History of partial colectomy History of ileostomy History of coronary artery stent placement (10/24/18) Social History (Updated 01/14/25 @ 04:[address] Gladys Marin MD) household members: spouse Smoking Status: Current some day smoker how long ago did patient quit smoking: Notes remotely quit cigarette tobacco use (before 1984), occasional cigar. alcohol intake: current alcohol intake frequency: holidays/special occasions only substance use type: does not use Vital Signs Vital Signs Vital Signs: 01/14/25 03:03 01/14/25 03:12 01/14/25 03:30 Temperature 98.2 F Temperature Source Oral Pulse Rate 72 74 Respiratory Rate 20 H 20 H Blood Pressure 160/89 H 147/90 H Blood Pressure Mean 112 109 Pulse Ox 95 99 Oxygen Delivery Method Room Air Room Air Room Air Weight Weight: 260 lb 2.327 oz Body Mass Index (BMI) 36.3 Physical Exam Narrative Physical Examination: General: Awake, alert, oriented x 3 and cooperative, seated upright in the ED bed, anxious, notes discomfort to the right calf with muscle cramping. Skin: Normal color, normal turgor, no icterus, no cyanosis. HEENT: AT/NC, EOMI, PERRLA, mildly dry MM, evident right facial droop with some correction with smiling with deviation with tongue [id number] noted, no carotid bruits or JVD noted. Lungs: CTA bilaterally, moderate effort, mild decrease BL bases, no rales, ronchi or wheezing. Heart: Regular rate and rhythm; no gallop, rub audible. Abdomen: Soft, obese, NTTP, distant BS, no obvious distention, no obvious discerned HSM. Extremities: No cyanosis, clubbing, or edema. Neurological: Patient awake, alert, oriented as noted, cognitive function intact; pupils equally reactive to light and accommodation, cranial nerves grossly normal except for noted right facial droop with some correction with smiling, right side flaccid upper and lower extremity, persistent dysarthria noted, sensation intact, equivocal Babinski, able to perform [id number] and [id number] with left upper and lower extremity but not with the right given flaccidity. Psychiatric: Affect appears anxious, no history of previous anxiety and depression but expected response in this acute situation. Results Lab / Micro Data 01/14/25 03:04 01/14/25 03:04 Labs: Laboratory Results - last 24 hr 01/14/25 03:04: WBC 12.5 H, RBC 5.05, Hgb 12.8 L, Hct 40.4, MCV 80.0, MCH 25.3 L, MCHC 31.7 L, RDW Std Deviation 44.1 H, RDW Coeff of [place] 15.3 H, Plt Count 319, MPV 10.0, Immature Gran % (Auto) 0.400, Neut % (Auto) 59.3, Lymph % (Auto) 27.2, [place] % (Auto) 9.5, Eos % (Auto) 3.0, Baso % (Auto) 0.6, Absolute Neuts (auto) 7.4, Absolute Lymphs (auto) 3.39, Nucleated RBC % 0, PT 13.0, INR 1.0, APTT 29.9, Sodium 137, Potassium 3.7, Chloride 100, Carbon Dioxide 22.7, Anion Gap 14, BUN 11, Creatinine 0.93, Estim Creat Clear Calc 107.61, Est GFR (MDRD) Non-Af 93, BUN/Creatinine Ratio 11.9, Glucose 139 H, Calcium 9.3 Imaging Radiology Impression Brain CT 01/14/25 03:04 IMPRESSION: 1. No acute intracranial abnormality. 2. Left maxillary sinus disease. Reading Location: [facility] Head/Neck CTA 01/14/25 03:04 IMPRESSION: No hemodynamically significant narrowing or large vessel occlusion of the head or neck vasculature. Reading Location: [facility] Assessment & Plan Assessment/Plan (1) Acute cerebrovascular accident (CVA): PLAN: Plan The patient is a 64 y/o M w/ PMHx: Chronic normocytic anemia, Obesity, GERD, RLS, Hypothyroidism, Hx Colon CA status post partial colectomy ileostomy HTN, HLD, Diabetes mellitus type II, CAD s/p PCI, Former tobacco use who presents to the [facility] ED on 01/14/2025 with history of onset right-sided facial droop, right-sided weakness and slurred speech with initial ED presentation NIH stroke scale assessment 841 facial palsy, 3 right arm, 3 right leg, 1 for mild to moderate dysarthria. #1. Facial palsy, right-sided hemiplegia with mild to moderate dysarthria concerning for acute CVA: Will admit to PCU, will obtain MRI Brain, ECHO, PT/OT/Speech/Nutrition evaluation per protocol. Will allow permissive HTN, maintain on asa, Mag, TSH, FLP, HgbA1c requested. Maintain on fall and aspiration precautions. Will continue neurology consultation. #2. CAD: Status post previous NSTEMI, status post PCI mid circumflex and distal third obtuse marginal, continue aspirin therapy, noted statin intolerance, temporarily holding metoprolol and losartan given permissive hypertension needs. Add back once appropriate. #3. History of colon cancer: Status post partial colectomy end ileostomy, considered in remission. #4. Chronic normocytic anemia: Admission hemoglobin 12.8, MCV 80, baseline hemoglobin has vacillated previously in the 12 range although most recent lab previous 12/16/2020 hemoglobin 14, continue to trend CBC. #5. Hypertension: Will temporarily hold home regimen with as needed agents per stroke protocol. #6. Hyperlipidemia: Noted statin intolerance, FLP in AM. #7. Diabetes mellitus type II: Hold oral home regimen, ADA diet, accu checks w/ ISS, hemoglobin A1c requested per stroke protocol, nutrition consulted per stroke protocol. #8. Obesity: Weight loss and lifestyle changes encouraged. #9. Former cigarette tobacco use, current occasional cigar usage: Encourage tobacco cessation. #10. Hypothyroidism: Will continue patient on levothyroxine regimen, TSH pending. #11. GERD: Will continue patient home PPI. #12. DVT prophylaxis: Lovenox. #13. CODE status: Patient COREEN is his who is present and living will is currently in place. Full Code status. Charges/Coding Visit Charges Inpatient E&M: 54501 Init Hosp L3
--- NOTE | 2025-01-14 04:09 | RAD_ITS ---
PROCEDURE: CHEST 1 VIEW 01/14/2025 REASON FOR EXAM: NEURO DEFICIT, ACUTE, STROKE SUSPECTED TECHNIQUE: Frontal view of the chest. COMPARISON: Chest radiograph 05/11/2021 FINDINGS: Hardware: None Heart: Cardiac and mediastinal contours are stable. Lungs: No significant change in the appearance of the lungs. Bones: Degenerative changes are identified within the thoracic spine. RAD/Chest 1 View IMPRESSION: No evidence of an acute cardiopulmonary abnormality. Reading Location: [facility]
[2025-01-14 04:12] LABS: Color, Urine Yellow (Yellow); Urine Clarity Clear (Clear)
--- OUTSIDE RECORDS SUMMARY | 2025-01-14 04:43 | XMS RPT_ITS | CCD ---
Author Organization [facility] Care Team Providers Care Manager Star Name Role Phone Bettye Powell MD Primary Care Provider GANTA, BETTYE Primary Care Unavailable DEMETRIS HAMILTON Attending Unavailable RAYMUNDO GALLEGOS Admitting Unavail able RAYMUNDO GALLEGOS Attending Unavail able RAYMUNDO GALLEGOS Referring Unavail able GANTA, BETTYE Primary Care Unavailable Bettye Powell MD Primary Care Provider Bettye Powell MD Primary Care Provider [phone] Ganta, Bettye Referring Unavailable Sherine Stack Attending Unavail able Ganta, Bettye Primary Care Unavailable Ganta, Bettye Primary Care Unavailable Heike Olea Attending Unavailable LIZETH RBADFORD Attending Unavailable GANTA, BETTYE Primary Care Unavailable [...] Care Unavailable Rachel Guthrie PA-C Unavailable Older HEAD PORTER.Amada THAPA Unavailable Rere Gonzales PA-C Unavailable Allergies Allergy Classification Reported Allergen(s) Allergy Type Date of Onset Reaction(s) Facility (20 sources) House dust mite; Translations: [DUST MITES] Propensity to adverse reactions 0 [facility] (15 sources) atorvastatin; Translations: [ATORVASTATIN] Drug Allergy 3 GI Upset [facility] (15 sources) rosuvastatin; Translations: [ROSUVASTATIN] Drug Allergy 3 GI Upset [facility] (1 source) atorvastatin Drug Allergy 4 [facility] Repository (1 source) rosuvastatin Drug Allergy 4 [facility] Repository Medications Current Medications Medication Drug Class(es) [...] Comment on above: Take 1 capsule by [facility] twice daily for 7 days. cetirizine hydrochloride [...] CAPSULE ONCE WEEKLY Take 1 capsule by [facility] one time a week. iv contrast (will [...] Comment on above: Take [address] [facility] once daily for 5 days. tamsulosin hydrochloride 0.4 mg oral capsule (20 sources) alpha-Adrenergic Berta Start: End: take 1 capsule by mouth once daily at bedtime tamsulosin (FLOMAX) 0.4 mg Indications: History of kidney stones Take 1 capsule by mouth daily at bedtime. 90 capsule 1 11/26/2023 Active Comment on above: Take 1 capsule by [facility] daily at bedtime for 7 days. Take 1 capsule by [facility] daily at bedtime. Completed/Discontinued Medications Medication Drug Class(es) Dates Sig (Normalized) Sig (Original) [id number] 200 actuat albuterol 0.09 mg/actuat metered dose [...] Comment on above: Take 1 capsule by [facility] twice daily. 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 He has been to see an snap shearer recently. He has been to see Michelle [...] Date ABDOMINAL SURGERY HX CARDIAC CATH 10/24/2018 [facility] with stent placement COLON SURGERY HX COLONOSCOPY [...] ileostomy reversal PSA (EXTERNAL) 06/14/2015 normal (0.76) [facility] REMOVAL OF KIDNEY STONE 2022 FAMILY HISTORY [...] tablet acetami (more content not included)... Normal [facility] CNPNon 03-20-2024 ALANISN Telephone (INTMWS) WALDO ZEE ([id number]) 1960 [facility] Date Time Provider Department 03/20/24 LIZETH BRADFORD INTMWS During your visit today, we recorded the following information about you: Beatrice Grady LPN 03/20/2024 8:07 AM Signed ----- Message from Lizeth Bradford APRN.C 13 CATAPULT OPERATOR sent at 03/19/2024 5:08 PM EDT ----- Please let the patient know as of right now the preliminary result of the ultrasound is negative for blood clots. I will contact him on My Chart once the final has resulted Lizeth Bradford APRN.Beatrice Rocha LPN 03/20/2024 8:11 AM Signed Phoned patient and went over results, notes from Lizeth Bradford CHIEF CLIENT OFFICER with understanding. Allergies As of Date: 03/20/2024 [...] [K43.2] 06/26/2018 06/02/2020 Coronary artery disease involving sitka marcano*06/02/2020 Fatty liver [K76.0] 02/08/2021 Morbid obesity (HCC) [E66.01] 02/08/2021 Burning sensation of feet [R20.8] 08/03/2023 History of colonic polyps [Z86.010] 08/31/2023 Encounter Status:Closed by BEATRICE GRADY on 03/20/24 [facility] 03-19-2024 CNOV Office Visit (INTMWS ) WALDO ZEE ([id number]) 1960 Patricia [facility] Date Time Provider Department 03/19/24 10:00 AM LIZETH BRADFORD INTMWS During your visit today, we recorded the following information about you: Temperature Pulse Respiration Blood pressure 97 degrees 67/minute 16/minute 130/84 Weight 113.4 kg Lizeth Bradford, HEAD PORTER.C 13 CATAPULT OPERATOR 03/19/2024 10:39 AM Signed CC: Patient presents [...] ABDOMINAL SURGERY HX 10/24/2018: CARDIAC CATH Comment: [facility] with stent placement No date: COLON SURGERY HX 06/13/2017: COLONOSCOPY FLX DX W/COLLJ SPEC WHEN PFRMD Comment: Colonoscopy 05/29/2018: COLONOSCOPY FLX DX W/COLLJ SPEC WHEN PFRMD Comment: Colonoscopy 06/26/2019: COLONOSCOPY FLX DX W/COLLJ SPEC WHEN PFRMD Comment: Colonoscopy 07/02/2020: COLONOSCOPY FLX DX W/COLLJ SPEC WHEN PFRMD Comment: Colonoscopy No date: ESOPHAGOGASTRODUODENOSCOPY TRANSORAL DIAGNOSTIC Comment: EGD 2018: HERNIA REPAIR HX Comment: incisional [facility]2017: PAST SURGICAL HISTORY OF Comment: Diagnostic laparoscopy, open low anterior rectal and sigmoid resection, mobilization of splenic flexure, flexible sigmoidoscopy, diverting loop ileostomy 11/05/2017: PAST SURGICAL HISTORY OF Comment: ileostomy reversal 06/14/2015: PSA (EXTERNAL) Comment: normal (0.76) [facility] 2022: REMOVAL OF KIDNEY STONE ALLERGIES Atorvastatin, [...] Take 50 mg by mouth once daily. [facility]) ergocalciferol 50,000 unit capsule (VITAMIN [...] Vaping Use: (more content not included)... Normal [facility] LEG VEIN DVT UNL VAS LABo n 03-19-2024 LEG VEIN DVT UNL VAS LAB Non-Invasive Vascular Laboratory [facility] Lower Extremity Venous Duplex Unilateral - Left [...] physician: Nam Limon MD, RAVEN Final CC [employer] Image : [id number] oDynamicsSISUID See Link below for Image Normal [facility] Cardiology Visit Reporton Cardiology Visit Report [facility] [address] [place] [address] OFFICE VISIT Date of Service: 03/18/24 MR#: [id number] Acct: [id number] Name: WALDO ZEE Rep #: [id number] : 1960 Provider: JUAN F Llanos Age/Sex: 63/M Location: [facility] Status: Signed HPI HPI History of [...] 99 Intake Visit Reasons: 1 Y FU Ready To Wear Department Manager Required: No Is patient in pain?: No [...] mg PO BID diabetes 03/18/24 03/18/24 History [facility] Medical History (Updated 03/18/24 @ 13:51 by Sherine ROGEL, PA) Essential hypertension Hypothyroidism History of colon cancer History of non-ST elevation myocardial infarction (NSTEMI) (10/24/18) Type 2 diabetes mellitus Obesity RLS (restless legs syndrome) GERD (gastroesophageal reflux disease) 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 Normal [facility] CNOVon 03-10-2024 CNOV Office Visit (INTMWS ) WALDO ZEE ([id number]) 1960 [facility] Date Time Provider Department 03/10/24 9:20 AM [...] stable. He has been to see an snap shearer recently. He has been to see Michelle [...] Date ABDOMINAL SURGERY HX CARDIAC CATH 10/24/2018 [facility] with stent placement COLON SURGERY HX COLONOSCOPY [...] ileostomy reversal PSA (EXTERNAL) 06/14/2015 normal (0.76) [facility] REMOVAL OF KIDNEY STONE 2022 FAMILY HISTORY [...] loss HEENT: (more content not included)... Normal [facility] 25([place])D3 [facility] 25-hydroxyvitamin D3 [Mass/Vol] 77.0 ng/mL Normal 31.0-80.0 [facility] Comment on above: Order Comment: Speci men Type: BLOOD SPECIMENOrdering Facility: [facility] Address: [address] [place] [address] Result Comment: Clas sification of 25 [place] Vitamin D status: Deficiency/Insufficiency: < or = 30 ng/ml. Sufficiency/Optimal Levels: 31-80 ng/mL Toxicity: > 100 ng/mL. Test performed by chemiluminescent immunoassay. Performed By: #### 1 989-3 ####[facility] LABIA [id number] [place] [address] [place] CBC panel Auto (Bld)on 03-08 Erythrocyte distribution width (RBC) [Ratio] 14.4 % Normal 11.5-15.0 [facility] Comment on above: Order Comment: Speci men Type: BLOOD SPECIMENOrdering Facility: [facility] Address: [address] [place] [address] Performed By: #### 5 8410-2 ####[facility] [id number] [address] [place] Hematocrit (Bld) [Volume fraction] 41.9 % Normal 39.0-51.0 [facility] Comment on above: Order Comment: Speci men Type: BLOOD SPECIMENOrdering Facility: [facility] Address: [address] [place] [address] Performed By: #### 5 8410-2 ####[facility] LABIA [id number] [address] [place] Hemoglobin (Bld) [Mass/Vol] 13.2 g/dL Normal 13.0-17.0 [facility] Comment on above: Order Comment: Speci men Type: BLOOD SPECIMENOrdering Facility: [facility] Address: [address] [place] [address] Performed By: #### 5 8410-2 ####[facility] LABIA [id number] [place] [address] [place] MCH (RBC) [Entitic mass] 26.4 pg Normal 26.0-34.0 [facility] Comment on above: Order Comment: Speci men Type: BLOOD SPECIMENOrdering Facility: [facility] Address: [address] [place] [address] Performed By: #### 5 8410-2 ####[facility] LABCLIA [id number] [place] [address] [place] MCHC (RBC) [Mass/Vol] 31.5 g/dL Normal 30.5-36.0 [facility] Comment on above: Order Comment: Speci men Type: BLOOD SPECIMENOrdering Facility: [facility] Address: [address] [place] [address] Performed By: #### 5 8410-2 ####[facility] LABIA [id number] [place] [address] [place] MCV (RBC) [Entitic vol] 83.8 fL Normal 80.0-100.0 [facility] Comment on above: Order Comment: Speci men Type: BLOOD SPECIMENOrdering Facility: [facility] Address: [address] [place] [address] Performed By: #### 5 8410-2 ####[facility] LABCLIA [id number] [place] [address] [place] Nucleated RBC (Bld) [#/Vol] 10*3/uL Normal <0.01 [facility] Comment on above: Order Comment: Speci men Type: BLOOD SPECIMENOrdering Facility: [facility] Address: [address] [place] [address] Performed By: #### 5 8410-2 ####[facility] LABCLIA [id number] [place] [address] [place] Platelet mean volume (Bld) [Entitic vol] 10.4 fL Normal 9.0-12.7 [facility] Comment on above: Order Comment: Speci men Type: BLOOD SPECIMENOrdering Facility: [facility] Address: [address] [place] [address] Performed By: #### 5 8410-2 ####[facility] LABCLIA [id number] [place] [address] [place] Platelets (Bld) [#/Vol] 275 10*3/uL Normal 150-400 [facility] Comment on above: Order Comment: Speci men Type: BLOOD SPECIMENOrdering Facility: [facility] Address: [address] [place] [address] Performed By: #### 5 8410-2 ####[facility] LABCLIA [id number] [place] [address] [place] RBC (Bld) [#/Vol] 5.00 10*6/uL Normal 4.20-6.00 [facility] Comment on above: Order Comment: Speci men Type: BLOOD SPECIMENOrdering Facility: [facility] Address: [address] [place] [address] Performed By: #### 5 8410-2 ####[facility] [id number] [place] [address] [place] WBC (Bld) [#/Vol] 9.47 10*3/uL Normal 3.70-11.00 [facility] Comment on above: Order Comment: Speci men Type: BLOOD SPECIMENOrdering Facility: [facility] Address: [address] [place] [address] Performed By: #### 5 8410-2 ####[facility] LABIA [id number] [place] [address] [place] Comprehensive metabolic 2000 panelon 03-08-2024 Albumin [Mass/Vol] 4.2 g/dL Normal 3.9-4.9 [facility] Comment on above: Order Comment: Speci men Type: BLOOD SPECIMENOrdering Facility: [facility] Address: [address] [place] [address] Performed By: #### 2 4323-8, 65429-1, 3016-3 ####[facility] LABCLIA [id number] [place] [address] [place] ALP [Catalytic activity/Vol] 71 U/L Normal 38-113 [facility] Comment on above: Order Comment: Speci men Type: BLOOD SPECIMENOrdering Facility: [facility] Address: [address] [place] [address] Performed By: #### 2 4323-8, 28703-2, 3016-3 ####[facility] LABCLIA [id number] [place] [address] [place] ALT [Catalytic activity/Vol] 18 U/L Normal 10-54 [facility] Comment on above: Order Comment: Speci men Type: BLOOD SPECIMENOrdering Facility: [facility] Address: [address] [place] [address] Performed By: #### 2 4323-8, 96375-1, 6-3 ####[facility] LABCLIA [id number] [place] [address] [place] Anion gap [Moles/Vol] 11 mmol/L Normal 8-15 [facility] Comment on above: Order Comment: Speci men Type: BLOOD SPECIMENOrdering Facility: [facility] Address: [address] [place] [address] Performed By: #### 2 4323-8, 85768-4, 6-3 ####[facility] LABCLIA [id number] [place] [address] [place] AST [Catalytic activity/Vol] 24 U/L Normal 14-40 [facility] Comment on above: Order Comment: Speci men Type: BLOOD SPECIMENOrdering Facility: [facility] Address: [address] [place] [address] Performed By: #### 2 4323-8, 12628-1, 3016-3 ####[facility] LABCLIA [id number] [place] [id number] [place] Bilirubin [Mass/Vol] 0.4 mg/dL Normal 0.2-1.3 [facility] Comment on above: Order Comment: Speci men Type: BLOOD SPECIMENOrdering Facility: [facility] Address: [address] [place] [address] Performed By: #### 2 4323-8, 61998-0, 3015-3 ####[facility] LABCLIA [id number] [place] [id number] [place] Calcium [Mass/Vol] 9.5 mg/dL Normal 8.5-10.2 [facility] Comment on above: Order Comment: Speci men Type: BLOOD SPECIMENOrdering Facility: [facility] Address: [address] [place] [address] Performed By: #### 2 4323-8, 12392-6, 3 ####[facility] LABCLIA [id number] [place] [address] [place] Chloride [Moles/Vol] 102 mmol/L Normal 98-107 [facility] Comment on above: Order Comment: Speci men Type: BLOOD SPECIMENOrdering Facility: [facility] Address: [address] [place] [address] Performed By: #### 2 4323-8, 59881-1, 3 ####[facility] LABCLIA [id number] [place] [id number] [place] CO2 [Moles/Vol] 26 mmol/L Normal 22-30 [facility] Comment on above: Order Comment: Speci men Type: BLOOD SPECIMENOrdering Facility: [facility] Address: [address] [place], [place] [address] Performed By: #### 2 4323-8, 23846-5, 3015-3 ####[facility] LABCLIA [id number] [place] [id number] [place] Creatinine [Mass/Vol] 0.91 mg/dL Normal 0.73-1.22 [facility] Comment on above: Order Comment: Speci men Type: BLOOD SPECIMENOrdering Facility: [facility] Address: [address] [place] [id number] Performed By: #### 2 4323-8, 42140-8, 3016-3 ####[facility] LABCLIA [id number] [place] [address] [place] Creatinine and Glomerular filtration rate.predicted panel (S/P/Bld) 96 mL/min/1.73m??? Normal >=60 [facility] Comment on above: Order Comment: Fidel landaverde Type: BLOOD SPECIMENOrdering Facility: [facility] Address: [address] [place] [address] Result Comment: Jossie mated Glomerular Filtration Rate [...] actual GFR. Performed By: #### 2 4323-8, 02875-4, 3016-3 ####[facility] LABCLIA [id number] [place] [id number] [place] Glucose [Mass/Vol] 108 mg/dL High 74-99 [facility] Comment on above: Order Comment: Fidel landaverde Type: BLOOD SPECIMENOrdering Facility: [facility] Address: [address] [place] [address] Result Comment: The [place] Diabetes Association (ADA) provides guidance for cutoff [...] Standards of Medical Care in Diabetes 2016, [place] Diabetes Association. Diabetes Care. 2016.39(Suppl 1). Performed By: #### 2 4323-8, 00522-4, 6-3 ####[facility] LABCLIA [id number] [address] [address] [place] Potassium [Moles/Vol] 4.4 mmol/L Normal 3.7-5.1 [facility] Comment on above: Order Comment: Speci men Type: BLOOD SPECIMENOrdering Facility: [facility] Address: [address] [place] [address] Performed By: #### 2 4323-8, 87586-1, 3015-3 ####[facility] LABCLIA [id number] [place] [address] [place] Protein [Mass/Vol] 7.0 g/dL Normal 6.3-8.0 [facility] Comment on above: Order Comment: Speci men Type: BLOOD SPECIMENOrdering Facility: [facility] Address: [address] [place] [address] Performed By: #### 2 4323-8, 10770-8, 3015-3 ####[facility] LABIA [id number] [place] [address] [place] Sodium [Moles/Vol] 139 mmol/L Normal 136-144 [facility] Comment on above: Order Comment: Speci men Type: BLOOD SPECIMENOrdering Facility: [facility] Address: [address] [place] [address] Performed By: #### 2 4323-8, 22884-9, 3015-3 ####[facility] LABCLIA [id number] [place] [id number] [place] Urea nitrogen [Mass/Vol] 13 mg/dL Normal 9-24 [facility] Comment on above: Order Comment: Speci men Type: BLOOD SPECIMENOrdering Facility: [facility] Address: [address] [place], [place] [address] Performed By: #### 2 4323-8, 25079-6, 3015-3 ####[facility] LABIA [id number] [address] [place] HbA1c (Bld)on 03-08-2024 Average glucose Estimated from glycated hemoglobin (Bld) [Mass/Vol] 140 mg/dL Normal [facility] Comment on above: Order Comment: Fidel landaverde Type: BLOOD SPECIMENOrdering Facility: [facility] Address: [address] [place] [address] Result Comment: eAG: (Estimated average glucose) is a calculated value from HgbA1c and is associate financial representative of the average blood glucose level in the last 2-3 month period. Performed By: #### 5 5454-3 ####[facility] LABIA [id number] [address] STATES [facility] HbA1c (Bld) [Mass fraction] 6.5 % High 4.3-5.6 [facility] Comment on above: Order Comment: Fidel landaverde Type: BLOOD SPECIMENOrdering Facility: [facility] Address: [address] [place] [address] Result Comment: [place] Diabetes Association guidelines indicate that patients with HgbA1c in the range 5.7-6.4% are at increased risk for development of diabetes, and intervention by lifestyle modification may be beneficial. HgbA1c greater or equal to 6.5% is considered diagnostic of diabetes. Performed By: #### 5 5454-3 ####[facility] LABIA [id number] [address] [place] Lipid 1996 panelon 4 Cholesterol [Mass/Vol] 205 mg/dL High <200 [facility] Comment on above: Order Comment: Fidel landaverde Type: BLOOD SPECIMENOrdering Facility: [facility] Address: [address] [place] [address] Result Comment: <200 mg/dL, Desirable 200-239 mg/dL, Borderline high >239 mg/dL, High Performed By: #### 2 4323-8, 92366-9, 3015-3 ####[facility] LABCLIA [id number] [address] [place] Cholesterol in HDL [Mass/Vol] 42 mg/dL Normal >39 [facility] Comment on above: Order Comment: Fidel landaverde Type: BLOOD SPECIMENOrdering Facility: [facility] Address: [address] [place] [address] Result Comment: 40-5 9 mg/dL, Acceptable >59 mg/dL, High: Negative risk factor for coronary heart disease <40 mg/dL, Low: Positive risk factor for coronary heart disease Performed By: #### 2 4323-8, 54030-1, 3015-3 ####[facility] LABCLIA [id number] [address] Cholesterol in LDL [Mass/Vol] 131 mg/dL High <100 [facility] Comment on above: Order Comment: Robynedilberto landaverde Type: BLOOD SPECIMENOrdering Facility: [facility] Address: [address] [place] [address] Result Comment: <100 mg/dL, Optimal 100-129 mg/dL, Near optimal/above optimal 130-159 mg/dL, Borderline high 160-189 mg/dL, High >189 mg/dL, Very high Secondary prevention optimal LDL Cholesterol levels are recommended to be < 70 mg/dL Performed By: #### 2 4323-8, 04065-1, 3015-3 ####[facility] [facility] [id number] [address] [place] Cholesterol in LDL/Cholesterol in HDL [Mass ratio] 3.12 {ratio} High <2.54 [facility] Comment on above: Order Comment: Fidel landaverde Type: BLOOD SPECIMENOrdering Facility: [facility] Address: [address] [place] [address] Result Comment: Tom caballero: 1. National Cholesterol Education Program ATP III Guideline At-A-Glance Quick Desk Reference: National Heart, Lung, and Blood [place]. National Institutes of Health. 2001: NIH Publication No. 01-3305. 2. An International Atherosclerosis Society position paper: global recommendations for the management of dyslipidemia: executive summary, Atherosclerosis. 2014: 232(2):410-413. Performed By: #### 2 4323-8, 77591-6, 6-3 ####[facility] LABCLIA [id number] [address] [address] [place] Cholesterol in VLDL [Mass/Vol] 32 mg/dL High <30 [facility] Comment on above: Order Comment: Speci men Type: BLOOD SPECIMENOrdering Facility: [facility] Address: [address] [place] [address] Performed By: #### 2 4323-8, 46697-4, 3015-3 ####[facility] LABCLIA [id number] [place] [address] [place] Cholesterol non HDL [Mass/Vol] 163 mg/dL High <130 [facility] Comment on above: Order Comment: Robyni men Type: BLOOD SPECIMENOrdering Facility: [facility] Address: [address] [place] [address] Result Comment: <130 mg/dL, Optimal 130-159 mg/dL, Near optimal/above optimal 160-189 mg/dL, Borderline high 190-219 mg/dL, High >219 mg/dL, Very high Secondary prevention optimal non HDL Cholesterol levels are recommended to be <100 mg/dL Performed By: #### 2 4323-8, 19553-3, 3015-3 ####[facility] LABCLIA [id number] [address] [address] [place] Cholesterol.total /Cholesterol in HDL [Mass ratio] 4.88 {ratio} Normal <5.10 [facility] Comment on above: Order Comment: Fidel men Type: BLOOD SPECIMENOrdering Facility: [facility] Address: [address] [place] [address] Performed By: #### 2 4323-8, 68690-9, 3015-3 ####[facility] LABCLIA [id number] [address] [address] [place] FASTING TIME 12 hrs Normal [facility] Comment on above: Order Comment: Speci men Type: BLOOD SPECIMENOrdering Facility: [facility] Address: [address] [place] [address] Performed By: #### 2 4323-8, 98300-8, 3016-3 ####[facility] LABCLIA [id number] [place] [address] [place] Triglyceride [Mass/Vol] 158 mg/dL High <150 [facility] Comment on above: Order Comment: Speci men Type: BLOOD SPECIMENOrdering Facility: [facility] Address: [address] [place] [address] Result Comment: <150 mg/dL, Normal 150-199 mg/dL, Borderline high 200-499 mg/dL, High >499 mg/dL, Very high Performed By: #### 2 4323-8, 68752-1, 6-3 ####[facility] LABCLIA [id number] [place] [address] [place] TSH SerPl-aCncon 03-08-2024 TSH Qn 2.520 m[IU]/L Normal 0.270-4.200 [facility] Comment on above: Order Comment: Speci men Type: BLOOD SPECIMENOrdering Facility: [facility] Address: [address] [place] [address] Performed By: #### 2 4323-8, 12723-2, 6-3 ####[facility] LABCLIA [id number] [place] [id number] [place] Emergency Department Summary on 01-02-2024 Emergency Department Summary [facility] Medical Records Department [address] [place] [address] Emergency Department Summary 01/02/24 MR#: [id number] Acct: [id number] Name: WALDO ZEE Rep #: [id number] : 1960 63 From: Heike Olea DO PCP: Dr. Bettye Powell MD Status:DEP ER Location: ED HPI History of Present Illness Chief Complaint: Laceration Informant: patient Narrative Narrative: Patient is a [id number]-[id number]-[id number] male presenting with laceration to his left [...] is diabetic. 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 Normal [facility] Vinny 10-02-2023 RANJIT Telephone (URONISHI) WALDO ZEE ([id number]) 1960 [facility] Date Time Provider Department 10/02/23 EVERETTE CROSS [...] Everette Cross DNP, ALANIS Department of Urology [facility] Johnny Funes RN 10/02/2023 2:15 PM Signed [...] WITH MICROSCOPIC, REFLEX CULTURE [SQUACII] Order #: [id number] FUTURE Prescriptions as of 10/02/2023 - tamsulosin [...] [K43.2] 06/26/2018 06/02/2020 Coronary artery disease involving sitka marcano*06/02/2020 Fatty liver [K76.0] 02/08/2021 Morbid obesity (HCC) [E66.01] 02/08/2021 Burning sensation of feet [R20.8] 08/03/2023 History of colonic polyps [Z86.010] 08/31/2023 Encounter Status:Closed by EVERETTE CROSS on 10/02/23 Normal [facility] ([id number]) 1960 M [facility] Date Time Provider Department 10/02/23 EVERETTE CROSS During your visit today, we recorded the following information about you: NisreenOziel toure 10/02/2023 12:02 PM Signed Patient called today regarding his recent CT scan Would like to discuss results, and has additional questions Please contact the patient, he can be reached at [phone] Johnny Funes, RN 10/02/2023 2:16 PM Signed [...] [K43.2] 06/26/2018 06/02/2020 Coronary artery disease involving sitka marcano*06/02/2020 Fatty liver [K76.0] 02/08/2021 Morbid obesity (HCC) [E66.01] 02/08/2021 Burning sensation of feet [R20.8] 08/03/2023 History of colonic polyps [Z86.010] 08/31/2023 Encounter Status:Closed by JOHNNY FUNES on 10/02/23 Normal [facility] CT Kidney WO and W contrast Karla 10-01-[address] [facility] [address] UROGRAM WO/W IVCONon 09-13 CT UROGRAM WO/W IVCON * * *Final Report* * * DATE OF EXAM: Oct 01 2023 1:51PM [facility] 0560 - CT UROGRAM WO/W IVCON [...] Tissues: No significant finding. Lower thorax: Unremarkable. Principal Librarian (topogram) images: Unremarkable. IMPRESSION: 6 mm x 5 mm terminal left ureteral calculus. Small remaining peripelvic bilateral intrarenal calculi. Cholelithiasis Film Cutter: [place] Transcribe Date/Time: Oct 01 2023 2:27P Dictated by : CIRA SWIFT MD This examination was interpreted and the report reviewed and electronically signed by: CIRA SWIFT MD on Oct 01 2023 2:30PM EST [id number] Normal [facility] CREATININE BLDon 09-28-2023 Creatinine [Mass/Vol] 1.13 mg/dL Normal 0.73-1.22 [facility] Comment on above: Order Comment: Speci men Type: BLOOD SPECIMENOrdering Facility: [facility] Address: [address] [place] [address] Performed By: #### C RET1 ####[facility] [id number] [place] [address] [place] Creatinine and Glomerular filtration rate.predicted panel (S/P/Bld) 74 mL/min/1.73m??? Normal >=60 [facility] Comment on above: Order Comment: Robyni men Type: BLOOD SPECIMENOrdering Facility: [facility] Address: [address] [place] [address] Result Comment: Jossie mated Glomerular Filtration Rate [...] actual GFR. Performed By: #### C RET1 ####[facility] [id number] [place] [address] [place] Urinalysis complete pnl [...] CULTURE, URINE: No growth (<1,000 CFU/ml) Abnormal [facility] Comment on above: Order Comment: Speci men Type: URINE SPECIMENOrdering Facility: [facility] Address: [address] [place] [address] Performed By: #### 2 4356-8 ####[facility] LABCLIA [id number] [address] [place] CNOVon 09-17-2023 CNOV Office Visit (UROLMD ) WALDO ZEE ([id number]) 1960 M [facility] Date Time Provider Department 09/17/23 1:30 PM EVERETTE CROSS During your visit today, we recorded the following information about you: Pulse Respiration Blood pressure Weight 71/minute 16/minute 130/91 113.9 kg Height 1.803 m Everette Cross APRN.C 13 CATAPULT OPERATOR, DNP 09/28/2023 4:12 PM Addendum [facility] Urology - [facility] Referring provider: Bettye Powell MD New patient [...] Date ABDOMINAL SURGERY HX CARDIAC CATH 10/24/2018 [facility] with stent placement COLON SURGERY HX COLONOSCOPY [...] ileostomy reversal PSA (EXTERNAL) 06/14/2015 normal (0.76) [facility] REMOVAL OF KIDNEY STONE 2022 Family History [...] for Chest (more content not included)... Normal [facility] UA DIP, URINE (POC)on 2023 BILIRUBIN UA (POCT) Negative Negative [facility] CLARITY UA (POCT) Clear [facility] COLOR UA (POCT) Yellow [facility] GLUCOSE UA (POCT) Negative Negative mg/dL [facility] Hemoglobin Ql (U) Trace-intact Abnormal Negative [facility] KETONE UA (POCT) Negative Negative mg/dL [facility] LEUKOCYTES UA (POCT) Negative Negative [facility] NITRITE UA (POCT) Negative Negative [facility] PH UA (POCT) 6.0 4.5 - 8.0 [facility] Protein Ql (U) Negative Negative mg/dL [facility] SPECIFIC GRAVITY UA (POCT) 1.020 1.005 - 1.030 [facility] UROBILINOGEN UA (POCT) 0.2 E.U./dL Normal E.U./dL [facility] Bacteria Ur Culton Bacteria identified Cx Nom (U) CULTURE, URINE: No growth (<1,000 CFU/ml) Normal [facility] Comment on above: Performed By: #### 6 30-4 ####[facility] LABCLIA [id number] [address] [place] CNOVon 09-11-2023 CNOV Office Visit (UCWSTR ) WALDO ZEE ([id number]) 1960 M [facility] Date Time Provider Department 09/11/23 1:45 PM TIFFANY TA UCWSTR During your visit today, we recorded the following information about you: Temperature Pulse Respiration Blood pressure 97.1 degrees 76/minute 16/minute 128/72 Weight 114.8 kg Tiffany Ta, JONES 09/11/2023 2:11 PM Signed This note was created using semiosBIO Technologiesriter. Subjective Waldo Zee is a 63 year [...] Date ABDOMINAL SURGERY HX CARDIAC CATH 10/24/2018 [facility] with stent placement COLON SURGERY HX COLONOSCOPY [...] ileostomy reversal PSA (EXTERNAL) 06/14/2015 normal (0.76) [facility] REMOVAL OF KIDNEY STONE 2022 FAMILY HISTORY [...] Resp 16 (more content not included)... Normal [facility] VITAMIN B12 BLOODon 05-05-20 Cobalamin (Vitamin B12) [Mass/Vol] 423 pg/mL 232 - 1,245 pg/mL [facility] ALBUMIN/CREAT RATIO RND URon 05-04-2023 Albumin DL <= 20 mg/L (U) [Mass/Vol] [facility] Albumin/Creatinin e (U) [Mass ratio] <30 mg/g [facility] Creatinine (U) [Mass/Vol] 160.0 mg/dL 20.0 - 300.0 mg/dL [facility] UA DIP, URINE (POC)on 2022 BILIRUBIN UA (POCT) Negative Negative [facility] CLARITY UA (POCT) Clear [facility] COLOR UA (POCT) Dark yellow [facility] GLUCOSE UA (POCT) Negative Negative mg/dL [facility] HEMOGLOBIN/BLOOD UA (POCT) Negative Negative [facility] KETONE UA (POCT) Negative Negative mg/dL [facility] LEUKOCYTES UA (POCT) Negative Negative [facility] NITRITE UA (POCT) Negative Negative [facility] PH UA (POCT) 6.5 4.5 - 8.0 [facility] Protein Ql (U) Negative Negative mg/dL [facility] SPECIFIC GRAVITY UA (POCT) 1.020 1.005 - 1.030 [facility] UROBILINOGEN UA (POCT) 0.2 E.U./dL Normal E.U./dL [facility] UA DIP, URINE (POC)on 2022 BILIRUBIN UA (POCT) Negative Negative [facility] CLARITY UA (POCT) Clear [facility] COLOR UA (POCT) Yellow [facility] GLUCOSE UA (POCT) Negative Negative mg/dL [facility] HEMOGLOBIN/BLOOD UA (POCT) Trace-intact Abnormal Negative [facility] KETONE UA (POCT) Negative Negative mg/dL [facility] LEUKOCYTES UA (POCT) Negative Negative [facility] NITRITE UA (POCT) Negative Negative [facility] PH UA (POCT) 6.0 4.5 - 8.0 [facility] Protein Ql (U) Negative Negative mg/dL [facility] SPECIFIC GRAVITY UA (POCT) 1.020 1.005 - 1.030 [facility] UROBILINOGEN UA (POCT) 0.2 E.U./dL Normal E.U./dL [facility] ANES POSTPROC EVALon 022 ANES POSTPROC EVAL HNO ID: [id number] Author: Ruiz Everett MD Service: Anesthesiology Author Type: Physician Type: Anesthesia Postprocedure Evaluation Filed: 07/12/2022 10:07 AM Note Text: POST ANESTHESIA EVALUATION NOTE : 1960 Procedure Summary Date: 07/11/22 Room / Location: [place] OR / [place] Anesthesia Start: 1254 Anesthesia Stop: 1327 [...] July 12, 2022 TIME: 10:07 AM CSN: [id number] [facility] 07-12-2022 CNPN Telephone (UROLAG) WALDO ZEE ([id number]) 1960 [facility] Date Time Provider Department 07/12/22 RAYMUNDO GALLEGOS UROASHANTI During your visit today, we recorded the following information about you: Raymundo Gallegos MD 07/12/2022 12:45 PM Signed Patient needs Lithol[facility] and follow-up with Pedro Ponce in [place] Michelle GAGNON 07/12/2022 12:54 PM Signed [facility] [...] [K43.2] 06/26/2018 06/02/2020 Coronary artery disease involving sitka marcano*06/02/2020 Fatty liver [K76.0] 02/08/2021 Morbid obesity (HCC) [E66.01] 02/08/2021 Encounter Status:Closed by RAYMUNDO GALLEGOS on 07/12/22 [facility] ANES PRE-OPon 07-11-2022 ANES PRE-OP HNO ID: [id number] Author: Ruiz Everett MD Service: Anesthesiology Author [...] Problems CARDIO (+) 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 ENDO (+) Type [...] July 11, 2022 TIME: 11:35 AM CSN: [id number] Normal [facility] CALCULI ANALYSISon 2 Calculus analysis [Interp] [facility] Comment on above: Order Comment: Speci men Type: CALCULUS SPECIMEN Ordering Facility: [facility] Address: [address] [place] [address] Result Comment: This test was developed and its performance characteristics determined by [facility]'s Cira Carpenter [facility] Pathology and Laboratory Medicine [place] (RT-PLMI). It has not been cleared or approved by the FDA. RT-PLUT is regulated under CLIA as qualified to perform high-complexity testing. This test is used for clinical purposes. It should not be regarded as investigational or for research. Performed By: #### C SA #### [facility] CLIA [id number] [address] [place] [address] [place] CALCULUS COLOR BROWN Normal [facility] Comment on above: Order Comment: Speci men Type: CALCULUS SPECIMEN Ordering Facility: [facility] Address: [address] [phone] Performed By: #### C SA #### [facility] CLIA [id number] [address] [place] [address] [place] CALCULUS COMPOSITION 1 50% Calcium Oxalate Dihydrate Normal [facility] Comment on above: Order Comment: Speci men Type: CALCULUS SPECIMEN Ordering Facility: [facility] Address: [address] [place] [address] Performed By: #### C SA #### [facility] CLIA [id number] [address] [place] CALCULUS COMPOSITION 2 40% Calcium Oxalate Monohydrate Normal [facility] Comment on above: Order Comment: Speci men Type: CALCULUS SPECIMEN Ordering Facility: [facility] Address: [address] [place] [address] Performed By: #### C SA #### [facility] CLIA [id number] [address] [place] CALCULUS COMPOSITION 3 10% Minor Components Normal [facility] Comment on above: Order Comment: Speci men Type: CALCULUS SPECIMEN Ordering Facility: [facility] Address: [address] [place] [address] Performed By: #### C SA #### [facility] CLIA [id number] [address] [place] CALCULUS SIZE AND WT Multiple pieces. 0.0683 GRAMS Normal [facility] Comment on above: Order Comment: Speci men Type: CALCULUS SPECIMEN Ordering Facility: [facility] Address: [address] [place] [address] Performed By: #### C SA #### [facility] CLIA [id number] [address] [place] CALCULUS TYPE CALCULI/CALCULUS Normal [facility] Comment on above: Order Comment: Speci men Type: CALCULUS SPECIMEN Ordering Facility: [facility] Address: [address] [place] [address] Result Comment: righ t renal Performed By: #### C SA #### [facility] CLIA [id number] [address] [place] [address] [place] HISTORY PHYSICALon 2 HISTORY PHYSICAL HNO ID: [id number] Author: Raymundo Gallegos MD Service: Urology Author [...] HISTORY Procedure Laterality Date CARDIAC CATH 10/24/2018 [facility] with stent placement COLONOSCOPY FLX DX W/COLLJ [...] ileostomy reversal PSA (EXTERNAL) 06/14/2015 normal (0.76) [facility] ALLERGIES: ALLERGIES Allergen Reactions Dust Mites HOME [...] for jaundice, (more content not included)... Normal [facility] OPERATIVE NOon 07-11-2022 OPERATIVE NO HNO ID: [id number] Author: Raymundo Gallegos MD Service: Urology Author [...] fashion. Pressure points were padded. A 22 Ethiopian sheath rigid cystoscope was used to inspect [...] surgeon was present and available for all cehn components of the operation. Adolph Laboy MD Urology PGY-2 Pager #[phone] 07/11/2022 12:51 PM Normal [facility] XR ABDOMEN 1V SUPINEon 07-11 XR ABDOMEN 1V SUPINE * * *Final Report* * * DATE OF EXAM: Jul 11 2022 1:22PM [facility] 5289 - XR ABDOMEN 1V SUPINE [...] refer to procedure notes for full details. Film Cutter: [place] Transcribe Date/Time: Jul 13 2022 5:21P Dictated by : AMBAR ZURITA MD This examination was interpreted and the report reviewed and electronically signed by: AMBAR ZURITA MD on Jul 13 2022 5:24PM EST [id number] Normal [facility] CNPNon 06-28-2022 CNPN Telephone (AKURFL) WALDO EZE ([id number]) 1960 [facility] Date Time Provider Department 06/28/22 RAYMUNDO GALLEGOS During your visit today, we recorded the following information about you: Mercedes Raman COORD 06/28/2022 8:53 AM Signed Pt is scheduled for CANDP, Rt ULL, possible Rt stent with Dr Gallegos at [facility] on 07/11/22 @ 1:55 (11:55 arrival). Urine culture ordered to be done 07/04. Pt given date, time, prep and arrival instructions over the phone. Crosswise message sent also. Mercedes Raman COORD Allergies [...] [K43.2] 06/26/2018 06/02/2020 Coronary artery disease involving sitka marcano*06/02/2020 Fatty liver [K76.0] 02/08/2021 Morbid obesity (HCC) [E66.01] 02/08/2021 Encounter Status:Closed by MERCEDES FITZPATRICK on 06/28/22 [facility] CNPAngelica 06-24-2022 CNPN Telephone (UROLAG) WALDO ZEE ([id number]) 1960 M [facility] Date Time Provider Department 06/24/22 AVIVA CORNELIUS [...] Pt states he had consult yesterday at [facility] and has surgery planned for 08/18/22. I offered surgery sooner with Dr Gallegos at [facility] if he was interested. He states he [...] RN - Fully Assessed Reason for Visit: 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 [3602] Prescriptions as of 06/27/2022 [...] 08/06/2017 Ileost (more content not included)... Normal [facility] ED PROV NOTEon 06-24-2022 ED PROV NOTE HNO ID: [id number] Author: Demetris Hamilton DO Service: Emergency Medicine [...] worsening symptoms. Demetris Hamilton DO 06/24/22 0422 [facility] ED PROV NOTE HNO ID: [id number] Author: Florian Strange DO Service: Emergency Medicine [...] Date ABDOMINAL SURGERY HX CARDIAC CATH 10/24/2018 [facility] with stent placement COLON SURGERY HX COLONOSCOPY [...] ileostomy reversal PSA (EXTERNAL) 06/14/2015 normal (0.76) [facility] FAMILY HISTORY Adopted: Yes Problem Relation Age [...] Pulses: Kina (more content not included)... Normal [facility] CBC W Auto Differential pane l (Bld)on 06-23-2022 Basophils (Bld) [#/Vol] 0.10 10*3/uL Normal <0.11 [facility] Comment on above: Order Comment: Speci men Type: BLOOD SPECIMEN Ordering Facility: [facility] Address: [address] [place] [phone] Performed By: #### 5 7021-8 #### [facility] CLIA [id number] [address] [place] [address] [place] Basophils/100 WBC (Bld) 0.8 % Normal [facility] Comment on above: Order Comment: Speci men Type: BLOOD SPECIMEN Ordering Facility: [facility] Address: [address] [place] [address] Performed By: #### 5 7021-8 #### [facility] CLIA [id number] [address] Differential cell count method Nom (Bld) Auto Normal [facility] Comment on above: Order Comment: Speci men Type: BLOOD SPECIMEN Ordering Facility: [facility] Address: [address] [place] [address] Performed By: #### 5 7021-8 #### [facility] CLIA [id number] [address] Eosinophils (Bld) [#/Vol] 0.22 10*3/uL Normal <0.46 [facility] Comment on above: Order Comment: Speci men Type: BLOOD SPECIMEN Ordering Facility: [facility] Address: [address] [place] [address] Performed By: #### 5 7021-8 #### [facility] CLIA [id number] [address] Eosinophils/100 WBC (Bld) 1.7 % Normal [facility] Comment on above: Order Comment: Speci men Type: BLOOD SPECIMEN Ordering Facility: [facility] Address: [address] [place] [address] Performed By: #### 5 7021-8 #### [facility] CLIA [id number] [address] [place] Erythrocyte distribution width (RBC) [Ratio] 15.0 % Normal 11.5-15.0 [facility] Comment on above: Order Comment: Speci men Type: BLOOD SPECIMEN Ordering Facility: [facility] Address: [address] [place] [address] Performed By: #### 5 7021-8 #### [facility] CLIA [id number] [address] [place] Hematocrit (Bld) [Volume fraction] 40.7 % Normal 39.0-51.0 [facility] Comment on above: Order Comment: Speci men Type: BLOOD SPECIMEN Ordering Facility: [facility] [facility] Address: [address] [place] [address] Performed By: #### 5 7021-8 #### [facility] CLIA [id number] [address] [place] Hemoglobin (Bld) [Mass/Vol] 13.2 g/dL Normal 13.0-17.0 [facility] Comment on above: Order Comment: Speci men Type: BLOOD SPECIMEN Ordering Facility: [facility] Address: [address] [place] [address] Performed By: #### 5 7021-8 #### [facility] CLIA [id number] [address] OF [place] Immature granulocytes (Bld) [#/Vol] 0.04 10*3/uL Normal <0.10 [facility] Comment on above: Order Comment: Speci men Type: BLOOD SPECIMEN Ordering Facility: [facility] Address: [address] [place] [address] Performed By: #### 5 7021-8 #### [facility] CLIA [id number] [address] OF [place] Immature granulocytes/100 WBC (Bld) 0.3 % Normal [facility] Comment on above: Order Comment: Speci men Type: BLOOD SPECIMEN Ordering Facility: [facility] Address: [address] [place] [address] Performed By: #### 5 7021-8 #### [facility] CLIA [id number] [address] [place] Lymphocytes (Bld) [#/Vol] 2.77 10*3/uL Normal 1.00-4.00 [facility] Comment on above: Order Comment: Speci men Type: BLOOD SPECIMEN Ordering Facility: [facility] Address: [address] [place] [address] Performed By: #### 5 7021-8 #### [facility] CLIA [id number] [address] Lymphocytes/100 WBC (Bld) 21.1 % Normal [facility] Comment on above: Order Comment: Speci men Type: BLOOD SPECIMEN Ordering Facility: [facility] Address: [address] [place] [address] Performed By: #### 5 7021-8 #### [facility] CLIA [id number] [address] MCH (RBC) [Entitic mass] 25.8 pg Low 26.0-34.0 [facility] Comment on above: Order Comment: Speci men Type: BLOOD SPECIMEN Ordering Facility: [facility] Address: [address] [place] [address] Performed By: #### 5 7021-8 #### [facility] CLIA [id number] [address] MCHC (RBC) [Mass/Vol] 32.4 g/dL Normal 30.5-36.0 [facility] Comment on above: Order Comment: Speci men Type: BLOOD SPECIMEN Ordering Facility: [facility] Address: [address] [place] [address] Performed By: #### 5 7021-8 #### [facility] CLIA [id number] [address] MCV (RBC) [Entitic vol] 79.6 fL Low 80.0-100.0 [facility] Comment on above: Order Comment: Speci men Type: BLOOD SPECIMEN Ordering Facility: [facility] Address: [address] [place] [address] Performed By: #### 5 7021-8 #### [facility] CLIA [id number] [address] Monocytes (Bld) [#/Vol] 0.80 10*3/uL Normal <0.87 [facility] Comment on above: Order Comment: Speci men Type: BLOOD SPECIMEN Ordering Facility: [facility] Address: [address] [address] Performed By: #### 5 7021-8 #### [facility] CLIA [id number] [address] Monocytes/100 WBC (Bld) 6.1 % Normal [facility] Comment on above: Order Comment: Speci men Type: BLOOD SPECIMEN Ordering Facility: [facility] Address: [address] [place] [address] Performed By: #### 5 7021-8 #### [facility] CLIA [id number] [address] [place] Neutrophils (Bld) [#/Vol] 9.19 10*3/uL High 1.45-7.50 [facility] Comment on above: Order Comment: Speci men Type: BLOOD SPECIMEN Ordering Facility: [facility] Address: [address] [place] [address] Performed By: #### 5 7021-8 #### [facility] CLIA [id number] [address] Neutrophils/100 WBC (Bld) 70.0 % Normal [facility] Comment on above: Order Comment: Speci men Type: BLOOD SPECIMEN Ordering Facility: [facility] Address: [address] [place] [address] Performed By: #### 5 7021-8 #### [facility] CLIA [id number] [address] [place] Nucleated RBC (Bld) [#/Vol] 10*3/uL Normal <0.01 [facility] Comment on above: Order Comment: Speci men Type: BLOOD SPECIMEN Ordering Facility: [facility] Address: [address] [place] [address] Performed By: #### 5 7021-8 #### [facility] CLIA [id number] [address] [place] Nucleated RBC/100 WBC (Bld) [Ratio] 0.0 /100 WBC Normal [facility] Comment on above: Order Comment: Speci men Type: BLOOD SPECIMEN Ordering Facility: [facility] Address: [address] [address] Performed By: #### 5 7021-8 #### [facility] CLIA [id number] [address] [place] Platelet mean volume (Bld) [Entitic vol] 10.1 fL Normal 9.0-12.7 [facility] Comment on above: Order Comment: Speci men Type: BLOOD SPECIMEN Ordering Facility: [facility] Address: [address] [address] Performed By: #### 5 7021-8 #### [facility] CLIA [id number] [address] [place] Platelets (Bld) [#/Vol] 311 10*3/uL Normal 150-400 [facility] Comment on above: Order Comment: Speci men Type: BLOOD SPECIMEN Ordering Facility: [facility] Address: [address] [address] Performed By: #### 5 7021-8 #### [facility] CLIA [id number] [address] [place] RBC (Bld) [#/Vol] 5.11 10*6/uL Normal 4.20-6.00 [facility] Comment on above: Order Comment: Speci men Type: BLOOD SPECIMEN Ordering Facility: [facility] Address: [address] Performed By: #### 5 7021-8 #### [facility] CLIA [id number] [address] [place] WBC (Bld) [#/Vol] 13.12 10*3/uL High 3.70-11.00 [facility] Comment on above: Order Comment: Speci men Type: BLOOD SPECIMEN Ordering Facility: [facility] Address: [address] [place] [address] Performed By: #### 5 7021-8 #### [facility] CLIA [id number] [address] [place] [address] [place] FLANK WO IVCONon 06-23-20 [facility] metabolic 2000 panelon 06-23-2022 Albumin [Mass/Vol] 4.3 g/dL Normal 3.9-4.9 [facility] Comment on above: Order Comment: Speci men Type: BLOOD SPECIMENOrdering Facility: [facility] Address: [address] [place] [address] Performed By: #### 2 4323-8 ####[facility] [id number] [address] [place] ALP [Catalytic activity/Vol] 83 U/L Normal 38-113 [facility] Comment on above: Order Comment: Speci men Type: BLOOD SPECIMENOrdering Facility: [facility] Address: [address] [place] [address] Performed By: #### 2 4323-8 ####[facility] [id number] [address] STATES OF [facility] ALT With P-5'-P [Catalytic activity/Vol] 34 U/L Normal 10-54 [facility] Comment on above: Order Comment: Speci men Type: BLOOD SPECIMENOrdering Facility: [facility] Address: [address] [place] [address] Performed By: #### 2 4323-8 ####[facility] [id number] [address] STATES [facility] Anion gap [Moles/Vol] 10 mmol/L Normal 9-18 [facility] Comment on above: Order Comment: Speci men Type: BLOOD SPECIMENOrdering Facility: [facility] Address: [address] [place] [address] Performed By: #### 2 4323-8 ####[facility] [id number] [address] [place] AST With P-5'-P [Catalytic activity/Vol] 35 U/L Normal 14-40 [facility] Comment on above: Order Comment: Speci men Type: BLOOD SPECIMENOrdering Facility: [facility] Address: [address] [place] [address] Performed By: #### 2 4323-8 ####[facility] [id number] [place] [address] [place] Bilirubin [Mass/Vol] 0.3 mg/dL Normal 0.2-1.3 [facility] Comment on above: Order Comment: Speci men Type: BLOOD SPECIMENOrdering Facility: [facility] Address: [address] [place] [address] Performed By: #### 2 4323-8 ####[facility] [id number] [place] [address] [place] Calcium [Mass/Vol] 9.8 mg/dL Normal 8.5-10.2 [facility] Comment on above: Order Comment: Speci men Type: BLOOD SPECIMENOrdering Facility: [facility] Address: [address] [place] [address] Performed By: #### 2 4323-8 ####[facility] [id number] [place] [address] [place] Chloride [Moles/Vol] 103 mmol/L Normal 97-105 [facility] Comment on above: Order Comment: Speci men Type: BLOOD SPECIMENOrdering Facility: [facility] Address: [address] [place] [address] Performed By: #### 2 4323-8 ####[facility] [id number] [place] [address] [place] CO2 [Moles/Vol] 26 mmol/L Normal 22-30 [facility] Comment on above: Order Comment: Speci men Type: BLOOD SPECIMENOrdering Facility: [facility] Address: [address] [place] [address] Performed By: #### 2 4323-8 ####[facility] [id number] [place] [address] [place] Creatinine [Mass/Vol] 0.87 mg/dL Normal 0.73-1.22 [facility] Comment on above: Order Comment: Fidel landaverde Type: BLOOD SPECIMENOrdering Facility: [facility] Address: [address] [place] [address] Performed By: #### 2 4323-8 ####[facility]IA [id number] [place] [id number] [place] ESTIMATED GLOMERULAR FILTRATION RATE 99 mL/min/1.73m??? Normal >=60 [facility] Comment on above: Order Comment: Fidel saima Type: BLOOD SPECIMENOrdering Facility: [facility] Address: [address] [place] [address] Result Comment: Jossei mated Glomerular Filtration Rate (eGFR) is calculated [...] actual GFR. Performed By: #### 2 4323-8 ####[facility] [id number] [place] [address] [place] Glucose [Mass/Vol] 160 mg/dL High 74-99 [facility] Comment on above: Order Comment: Robynedilberto landaverde Type: BLOOD SPECIMENOrdering Facility: [facility] Address: [address] [place] [address] Result Comment: The [place] [employer] (ADA) provides guidance for cutoff [...] Standards of Medical Care in Diabetes 2016, [place] [employer]. Diabetes Care. 2016.39(Suppl 1). Performed By: #### 2 4323-8 ####[facility]IA [id number] [address] STATES [facility] Potassium [Moles/Vol] 4.0 mmol/L Normal 3.7-5.1 [facility] Comment on above: Order Comment: Speci men Type: BLOOD SPECIMENOrdering Facility: [facility] Address: [address] [place] [address] Performed By: #### 2 4323-8 ####[facility]CLIA [id number] [address] STATES OF [facility] Protein [Mass/Vol] 7.1 g/dL Normal 6.3-8.0 [facility] Comment on above: Order Comment: Speci men Type: BLOOD SPECIMENOrdering Facility: [facility] Address: [address] [place] [address] Performed By: #### 2 4323-8 ####[facility]IA [id number] [address] Sodium [Moles/Vol] 139 mmol/L Normal 136-144 [facility] Comment on above: Order Comment: Speci men Type: BLOOD SPECIMENOrdering Facility: [facility] Address: [address] [place] [address] Performed By: #### 2 4323-8 ####[facility]ORYCLIA [id number] [address] Urea nitrogen [Mass/Vol] 11 mg/dL Normal 9-24 [facility] Comment on above: Order Comment: Speci men Type: BLOOD SPECIMENOrdering Facility: [facility] Address: [address] [place] [address] Performed By: #### 2 4323-8 ####[facility] [id number] [address] ED Triage Noteon 06-23-2022 ED Triage Note HNO ID: [id number] Author: Everette Weiss PA-C Service: Emergency Medicine Author Type: Physician Access Tech Type: ED Triage Notes Filed: 06/23/2022 7:30 [...] CMP Urinalysis SIGNATURE: Everette Weiss PA-C Normal [facility] Urinalysis complete panel (U )on 06-23-2022 Bilirubin Ql (U) Negative Normal Negative [facility] Comment on above: Order Comment: Speci men Type: URINE SPECIMEN Ordering Facility: [facility] Address: [address] [place] [address] Performed By: #### 2 4356-8 #### [facility] CLIA [id number] [address] [place] Clarity (Unsp spec) Clear Normal Clear [facility] Comment on above: Order Comment: Speci men Type: URINE SPECIMEN Ordering Facility: [facility] Address: [address] [place] [address] Performed By: #### 2 4356-8 #### [facility] CLIA [id number] [address] OF [place] Color (U) Yellow Normal yellow [facility] Comment on above: Order Comment: Speci men Type: URINE SPECIMEN Ordering Facility: [facility] Address: [address] [place] [address] Performed By: #### 2 4356-8 #### [facility] CLIA [id number] [address] [place] Glucose Test strip (U) [Mass/Vol] Negative Normal Negative [facility] Comment on above: Order Comment: Speci men Type: URINE SPECIMEN Ordering Facility: [facility] Address: [address] [place] [address] Performed By: #### 2 4356-8 #### [facility] CLIA [id number] [address] Hemoglobin Ql (U) 2+ Abnormal Negative [facility] Comment on above: Order Comment: Speci men Type: URINE SPECIMEN Ordering Facility: [facility] Address: [address] [address] Performed By: #### 2 4356-8 #### [facility] CLIA [id number] [address] Ketones Ql (U) Negative Normal Negative [facility] Comment on above: Order Comment: Speci men Type: URINE SPECIMEN Ordering Facility: [facility] Address: [address] [place] [address] Performed By: #### 2 4356-8 #### [facility] CLIA [id number] [address] Leukocyte esterase Test strip Ql (U) Negative Normal Negative [facility] Comment on above: Order Comment: Speci men Type: URINE SPECIMEN Ordering Facility: [facility] Address: [address] [address] Performed By: #### 2 4356-8 #### [facility] CLIA [id number] [address] Nitrite Ql (U) Negative Normal Negative [facility] Comment on above: Order Comment: Speci men Type: URINE SPECIMEN Ordering Facility: [facility] Address: [address] [address] Performed By: #### 2 4356-8 #### [facility] CLIA [id number] [address] pH (U) 5.5 [pH] Normal 5.0-8.0 [facility] Comment on above: Order Comment: Speci men Type: URINE SPECIMEN Ordering Facility: [facility] Address: [address] [address] Performed By: #### 2 4356-8 #### [facility] CLIA [id number] [address] Protein (U) [Mass/Vol] Trace Abnormal Negative [facility] Comment on above: Order Comment: Speci men Type: URINE SPECIMEN Ordering Facility: [facility] Address: [address] [place] [address] Performed By: #### 2 4356-8 #### [facility] CLIA [id number] [address] RBC LM.HPF (Urine sed) [#/Area] /[HPF] Abnormal 0-3 /HPF [facility] Comment on above: Order Comment: Speci men Type: URINE SPECIMEN Ordering Facility: [facility] Address: [address] [place] [address] Performed By: #### 2 4356-8 #### [facility] CLIA [id number] [address] Specific gravity (U) [Rel density] 1.020 Normal 1.005-1.030 [facility] Comment on above: Order Comment: Speci men Type: URINE SPECIMEN Ordering Facility: [facility] Address: [address] [place] [address] Performed By: #### 2 4356-8 #### [facility] CLIA [id number] [address] Urobilinogen Ql (U) Normal Normal Negative [facility] Comment on above: Order Comment: Speci men Type: URINE SPECIMEN Ordering Facility: [facility] Address: [address] [place] [address] Performed By: #### 2 4356-8 #### [facility] CLIA [id number] [address] WBC LM.HPF (Urine sed) [#/Area] 0-5 /HPF Normal 0-5 /HPF [facility] Comment on above: Order Comment: Speci men Type: URINE SPECIMEN Ordering Facility: [facility] Address: [address] [place] [address] Performed By: #### 2 4356-8 #### [facility] CLIA [id number] [address] [place] [address] [place] UA DIP, URINE (POC)on 2021 BILIRUBIN UA (POCT) Negative Negative [facility] CLARITY UA (POCT) Slightly Cloudy Cl [facility] COLOR UA (POCT) Paige [facility] GLUCOSE UA (POCT) Negative Negative mg/dL [facility] HEMOGLOBIN/BLOOD UA (POCT) Large Abnormal Negative [facility] KETONE UA (POCT) Negative Negative mg/dL [facility] LEUKOCYTES UA (POCT) Negative Negative [facility] NITRITE UA (POCT) Negative Negative [facility] PH UA (POCT) 6.5 4.5 - 8.0 [facility] Protein Ql (U) 30 mg/dL Abnormal Negative mg/dL [facility] SPECIFIC GRAVITY UA (POCT) 1.020 1.005 - 1.030 [facility] UROBILINOGEN UA (POCT) 0.2 E.U./dL Normal E.U./dL [facility] XR CHEST 2V FRONTAL/LATon [facility] XR Chest PA and Lateralon IMPRESSION: No acute radiographic abnormality. Film Cutter: PSCB Transcribe Date/Time: Jan 20 2022 9:12A [...] ZZZ_DO_NOT_U SE_DIVISION OF RADIOLOGY Provider, Nereida post Neponset - 01/20/2022 * * *Final Report* * [...] spine IMPRESSION IMPRESSION: No acute radiographic abnormality. Film Cutter: PSCB Transcribe Date/Time: Jan 20 2022 9:12A Dictated by : CRISTY ABRAMS MD This examination was interpreted and the report reviewed and electronically signed by: CRISTY ABRAMS MD on Jan 20 2022 9:15AM EST [facility] Radiology Study observation (narrative) [facility] XR Chest PA and LateralOrder ed By: Ccf Provider on 01-20-2022 [facility] Vital Signs Date Time Vital Sign Value Performing Clinician Mesha pritchard 09-08-2024 08:26-0500 Body mass index (BMI) [Ratio] 37.8 kg/m2 Bettye Powell MD Work Phone: [facility] 09-08-2024 08:26-0500 Body weight 122.92 kg Bettye Powell MD Work Phone: [facility] 09-08-2024 08:26-0500 Diastolic blood pressure 82 mm[Hg] Bettye Powell MD Work Phone: [facility] 09-08-2024 08:26-0500 Heart rate 66 /min Bettye Powell MD Work Phone: [facility] 09-08-2024 08:26-0500 Respiratory rate 16 /min Bettye Powell MD Work Phone: [facility] 09-08-2024 08:26-0500 Systolic blood pressure 128 mm[Hg] Bettye Powell MD Work Phone: [facility] 03-19-2024 09:52-0400 Body mass index (BMI) [Ratio] 34.87 kg/m2 Lizeth Dewey HEAD PORTER.C 13 [employer] OPERATOR Work Phone: [facility] 03-19-2024 09:52-0400 Body temperature 97 [degF] Lizeth Dewey HEAD P[employer]TER.C 13 CAT[employer]ULT OPERATOR Work Phone: [facility] 03-19-2024 09:52-0400 Body weight 113.4 kg Lizeth Dewey HEAD PORTER.C 13 CAT[employer]ULT OPERATOR Work Phone: [facility] 03-19-2024 09:52-0400 Diastolic blood pressure 84 mm[Hg] Lizeth Dewey HEAD PORTER.C 13 CATAPULT OPERATOR Work Phone: [facility] 03-19-2024 09:52-0400 Heart rate 67 /min Lizeth Dewey HEAD PORTER.C 13 CATAPULT OPERATOR Work Phone: [facility] 03-19-2024 09:52-0400 Respiratory rate 16 /min Lizeth Dewey HEAD PORTER.C 13 CATAPULT OPERATOR Work Phone: [facility] 03-19-2024 09:52-0400 SaO2% (BldA) [Mass fraction] 98 % Lizeth Dewey HEAD P[employer]TER.C 13 CAT[employer] OPERATOR Work Phone: [facility] 03-19-2024 09:52-0400 Systolic blood pressure 130 mm[Hg] Lizeth Dewey HEAD PORTER.C 13 CAT[employer]ULT OPERATOR Work Phone: [facility] 03-10-2024 09:13-0400 Body height 180.3 cm Bettye Powell MD Work Phone: [facility] 03-10-2024 09:13-0400 Body mass index (BMI) [Ratio] 35.01 kg/m2 Bettye Powell MD Work Phone: [facility] 03-10-2024 09:13-0400 Body weight 113.85 kg Bettye Powell MD Work Phone: [facility] 03-10-2024 09:13-0400 Diastolic blood pressure 80 mm[Hg] Bettye Powell MD Work Phone: [facility] 03-10-2024 09:13-0400 Heart rate 65 /min Bettye Powell MD Work Phone: [facility] 03-10-2024 09:13-0400 Systolic blood pressure 118 mm[Hg] Bettye Powell MD Work Phone: [facility] 09-17-2023 13:23-0500 Body height 180.3 cm Everette Blaz HEAD P[employer]TER.C 13 CAT[employer]ULT OPERATOR, DNP Work Phone: [facility] 09-17-2023 13:23-0500 Body weight 113.85 kg Everette Blaz HEAD P[employer]TER.C 13 CATAPULT OPERATOR, DNP Work Phone: [facility] 09-17-2023 13:23-0500 Diastolic blood pressure 91 mm[Hg] Everette Blaz HEAD P[employer]TER.C 13 CATAPULT OPERATOR, DNP Work Phone: [facility] 09-17-2023 13:23-0500 Heart rate 71 /min Everette Blaz HEAD P[employer]TER.C 13 CATAPULT OPERATOR, DNP Work Phone: [facility] 09-17-2023 13:23-0500 Respiratory rate 16 /min Everette Blaz HEAD PORTER.C 13 CATAPULT OPERATOR, DNP Work Phone: [facility] 09-17-2023 13:23-0500 Systolic blood pressure 130 mm[Hg] Everette Blaz HEAD PORTER.C 13 CATAPULT OPERATOR, DNP Work Phone: [facility] 05-04-2023 13:32-0400 Body weight 117.03 kg Amada Older HEAD PORTER.C 13 CATAPULT OPERATOR Work Phone: [facility] 05-04-2023 13:32-0400 Diastolic blood pressure 78 mm[Hg] Amada Older HEAD PORTER.C 13 CATAPULT OPERATOR Work Phone: [facility] 05-04-2023 13:32-0400 Heart rate 80 /min Amada Older HEAD PORTER.C 13 CATAPULT OPERATOR Work Phone: [facility] 05-04-2023 13:32-0400 Respiratory rate 16 /min Amada Older HEAD PORTER.C 13 CATAPULT OPERATOR Work Phone: [facility] 05-04-2023 13:32-0400 SaO2% (BldA) [Mass fraction] 97 % Amada Older HEAD PORTER.C 13 CATAPULT OPERATOR Work Phone: [facility] 05-04-2023 13:32-0400 Systolic blood pressure 130 mm[Hg] Amada Older HEAD PORTER.C 13 CATAPULT OPERATOR Work Phone: [facility] 12-14-2022 09:33-0400 Diastolic blood pressure 88 mm[Hg] Bettye Powell MD Work Phone: [facility] 12-14-2022 09:33-0400 Systolic blood pressure 132 mm[Hg] Bettye Powell MD Work Phone: [facility] 12-14-2022 08:37-0400 Body temperature 97.2 [degF] Bettye Powell MD Work Phone: [facility] 12-14-2022 08:37-0400 Body weight 119.75 kg Bettye Powell MD Work Phone: [facility] 12-14-2022 08:37-0400 Heart rate 86 /min Bettye Powell MD Work Phone: [facility] 12-14-2022 08:37-0400 Respiratory rate 16 /min Bettye Powell MD Work Phone: [facility] 12-14-2022 08:37-0400 SaO2% (BldA) [Mass fraction] 98 % Bettye Powell MD Work Phone: [facility] 08-22-2022 08:01-0500 Body height 180.3 cm Pedro Ponce PA-C Work Phone: [facility] 08-22-2022 08:01-0500 Body temperature 97.3 [degF] Pedro Ponce PA-C Work Phone: [facility] 08-22-2022 08:01-0500 Body weight 121.11 kg Pedro Ponce PA-C Work Phone: [facility] 08-22-2022 08:01-0500 Diastolic blood pressure 90 mm[Hg] Pedro Ponce PA-C Work Phone: [facility] 08-22-2022 08:01-0500 Heart rate 82 /min Pedro Ponce PA-C Work Phone: [facility] 08-22-2022 08:01-0500 Respiratory rate 14 /min Pedro Ponce PA-C Work Phone: [facility] 08-22-2022 08:01-0500 SaO2% (BldA) [Mass fraction] 98 % Pedro Ponce PA-C Work Phone: [facility] 08-22-2022 08:01-0500 Systolic blood pressure 138 mm[Hg] Pedro Ponce PA-C Work Phone: [facility] 06-26-2022 16:15-0500 Body height 180.3 cm Chacho Donis MD Work Phone: [facility] 06-26-2022 16:15-0500 Body weight 118.3 kg Chacho Donis MD Work Phone: [facility] 06-26-2022 16:15-0500 Diastolic blood pressure 93 mm[Hg] Chacho Donis MD Work Phone: [facility] 06-26-2022 16:15-0500 Heart rate 71 /min Chacho Donis MD Work Phone: [facility] 06-26-2022 16:15-0500 Systolic blood pressure 140 mm[Hg] Chacho Donis MD Work Phone: [facility] 06-22-2022 08:59-0500 Diastolic blood pressure 96 mm[Hg] Bettye Powell MD Work Phone: [facility] 06-22-2022 08:59-0500 Systolic blood pressure 144 mm[Hg] Bettye Powell MD Work Phone: [facility] 06-22-2022 08:06-0500 Body temperature 97 [degF] Bettye Powell MD Work Phone: [facility] 06-22-2022 08:06-0500 Body weight 119.39 kg Bettye Powell MD Work Phone: [facility] 06-22-2022 08:06-0500 Heart rate 78 /min Bettye Powell MD Work Phone: [facility] 06-22-2022 08:06-0500 Respiratory rate 16 /min Bettye Powell MD Work Phone: [facility] 06-22-2022 08:06-0500 SaO2% (BldA) [Mass fraction] 99 % Bettye Powell MD Work Phone: [facility] 01-20-2022 08:10-0400 Body height 177.8 cm Bettye Powell MD Work Phone: [facility] 01-20-2022 08:10-0400 Body weight 117.03 kg Bettye Powell MD Work Phone: [facility] 01-20-2022 08:10-0400 Diastolic blood pressure 78 mm[Hg] Bettye Powell MD Work Phone: [facility] 01-20-2022 08:10-0400 Heart rate 82 /min Bettye Powell MD Work Phone: [facility] 01-20-2022 08:10-0400 Respiratory rate 16 /min Bettye Powell MD Work Phone: [facility] 01-20-2022 08:10-0400 SaO2% (BldA) [Mass fraction] 97 % Bettye Powell MD Work Phone: [facility] 01-20-2022 08:10-0400 Systolic blood pressure 128 mm[Hg] Bettye Powell MD Work Phone: [facility] 01-05-2022 13:46-0400 Body temperature 96.49 [degF] Don Salgado MD Work Phone: [facility] 01-05-2022 13:46-0400 Body weight 117.48 kg Don Salgado MD Work Phone: [facility] 01-05-2022 13:46-0400 Diastolic blood pressure 82 mm[Hg] Don Salgado MD Work Phone: [facility] 01-05-2022 13:46-0400 Heart rate 76 /min Don Salgado MD Work Phone: [facility] 01-05-2022 13:46-0400 Respiratory rate 16 /min Don Salgado MD Work Phone: [facility] 01-05-2022 13:46-0400 Systolic blood pressure 130 mm[Hg] Don Salgado MD Work Phone: [facility] Encounters Encounter Date Encounter Type Care Provider Facility Start: 09-26-2024 End: 09-29-2024 Refill Bettye Powell MD Work Phone: [facility] [place] Comment on above: Refill Request Start: 09-08-2024 End: 09-08-2024 ambulatory BETTYE POWELL Facility:[facility] Start: 09-08-2024 End: 09-08-2024 Office outpatient visit 25 minutes Bettye Powell MD Work Phone: [facility] [place] Comment on above: Type 2 diabetes emily itus without complication, without long- term current use of insulin (HCC) (Primary Dx); 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; BMI 39.0-39.9,adult; Vitamin B12 deficiency Start: 05-10-2024 End: 05-15-2024 Refill Emma Cardoza MD Work Phone: [facility] [place] Comment on above: Refill Request Start: 03-20-2024 Telephone encounter Lizeth hanna APRN.CNP Work Phone: [facility] [place] Comment on above: Results Start: 03-19-2024 End: 03-19-2024 ambulatory LIZETH BRADFORD Facility:[facility] Start: 03-19-2024 End: 03-19-2024 Patient encounter procedure Lizeth Bradford APRN.CNP Work Phone: [facility] [place] Comment on above: Pain of left calf (P rimary Dx); Edema of left lower extremity Start: 03-18-2024 End: 03-18-2024 ambulatory Bettye Powell Facility:[facility] Start: 03-10-2024 End: 03-10-2024 Office outpatient visit 15 minutes Bettye Powell MD Work Phone: [facility] [place] Comment on above: Annual physical exam (Primary Dx); Encounter for immunization; Mixed hyperlipidemia; Morbid obesity (HCC); Type 2 diabetes mellitus without complication, without long-term current use of insulin (HCC); Rectal cancer (HCC); Seborrheic keratosis Start: 03-10-2024 End: 03-10-2024 ambulatory BETTYE POWELL Facility:[facility] Start: 03-10-2024 End: 03-10-2024 Patient encounter procedure Bettye Powell MD Work Phone: [facility] Start: 03-08-2024 End: 03-08-2024 ambulatory BERNARD MARLEY Facility:[facility] Start: 02-26-2024 ambulatory Bettye Honeycutt Work Phone: Internal [facility] [place] [id number] Start: 01-02-2024 End: 01-02-2024 Emergency department patient visit Bettye Powell Facility:[facility] Start: 11-26-2023 Refill Bettye Honeycutt Work Phone: [facility] [place] Comment on above: Refill Request Start: 10-02-2023 Telephone encounter Everette bridges HEAD PORTER.C 13 CATAPULT OPERATOR, DNP Work Phone: Urology Comment on above: Results; Appointment Results Start: 10-01-2023 End: 10-01-2023 ambulatory EVERETTE CROSS Facility:[facility] Start: 10-01-2023 End: 10-01-2023 Subsequent hospital visit by physician Lavonne [facility] (I-Stat) Work Phone: [facility] Comment on above: Gross hematuria [R31 .0] Start: 09-28-2023 End: 09-28-2023 ambulatory EVERETTE CROSS Facility:[facility] Start: 09-17-2023 End: 09-17-2023 ambulatory EVERETTE CROSS Facility:[facility] Start: 09-17-2023 End: 09-17-2023 Office outpatient visit 15 minutes Everette Cross HEAD PORTER.C 13 CATAPULT OPERATOR, DNP Work Phone: Urology Comment on above: Gross hematuria (Mariela steven Dx); History of kidney stones Start: 09-11-2023 End: 09-11-2023 ambulatory BETTYE POWELL Facility:[facility] Start: 08-23-2023 End: 06-17-2024 Telephone encounter [...] feet; Primary hypertension; 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; Mixed hyperlipidemia Start: 01-30-2023 Telephone encounter Bettye farfan MD Work Phone: [facility] [place] Comment on above: Diarrhea Start: 01-15-2023 Refill Bettye Honeycutt Work Phone: [facility] [place] Comment on above: Refill Request Start: 12-14-2022 End: 12-14-2022 Patient encounter procedure Bettye Powell MD Work Phone: [facility] [place] Comment on above: Acute bilateral low back pain without sciatica (Primary Dx); Type 2 diabetes mellitus without complication, without long-term current use of insulin (HCC); 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; Mixed hyperlipidemia Start: 12-11-2022 Refill Bettye Honeycutt Work Phone: [facility] Comment on above: Refill Request Start: 08-22-2022 End: 08-22-2022 Patient encounter procedure Pedro Ponce PA-C Work Phone: Urology Comment on above: Kidney stones (Prima ry Dx) Start: 07-13-2022 Patient encounter procedure [facility] Provider [facility] Department Start: 07-12-2022 Telephone encounter Raymundo Gallegos MD Work Phone: Urology Comment on above: Appointment Start: 07-11-2022 End: 07-11-2022 ambulatory RAYMUNDO GALLEGOS Facility:[facility] Start: 06-29-2022 Telephone encounter Leonor Rodriguez Urology Comment on above: Patient Update Start: 06-28-2022 Telephone encounter Raymundo Gallegos MD Work Phone: [facility] Comment on above: Surgery Scheduled Start: 06-27-2022 ambulatory Karin Nava RN Urology Start: 06-27-2022 Telephone encounter Aviva Cornelius MD Work Phone: [place] [facility] Comment on above: Opened In Error Patient Update; Appo intment Start: 06-26-2022 End: 06-26-2022 Patient encounter procedure Chacho Donis MD Work Phone: Urology Comment on above: Kidney stones (Prima ry Dx); Ureteric stone Start: 06-26-2022 ambulatory Janelle Isbell RN NURSE RETAIL VISUAL [employer]CH[employer]ER Comment on above: Information Start: 06-24-2022 Telephone encounter Aviva Cornelius MD Work Phone: Urology Comment on above: Proposal Specialist - O ther Start: 06-24-2022 End: 06-24-2022 Emergency department patient visit BETTYE POWELL Facility:[facility] Start: 06-23-2022 End: 06-23-2022 Subsequent hospital visit by physician Ct [facility] (I-Stat) Work Phone: [facility] Comment on above: Gross hematuria [R31 .0] Start: 06-23-2022 Telephone encounter Amada Muro APRN.CNP Work Phone: [facility] [place] Comment on above: Results Start: 06-22-2022 End: 06-22-2022 Patient encounter procedure Bettye Powell MD Work Phone: [facility] [place] Comment on above: Gross hematuria (Mariela steven Dx); Mixed hyperlipidemia; 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; Calculus of other lower urinary tract location; Type 2 diabetes mellitus without complication, without long-term current use of insulin (HCC); Chronic bilateral back pain, unspecified back location Start: 06-21-2022 ambulatory Bettye Honeycutt Work Phone: [facility] [place] Comment on above: Possible kidney infe ction or kidney stone Start: 06-21-2022 Telephone encounter Bettye farfan MD Work Phone: [facility] [place] Comment on above: Kidney Problem Start: 02-01-2022 Refill Bettye Honeycutt Work Phone: [facility] [place] Comment on above: Refill Request Start: 01-23-2022 Refill Bettye Honeycutt Work Phone: [facility] [place] Comment on above: Refill Request Start: 01-20-2022 End: 01-20-2022 Subsequent hospital visit by physician Xr [facility] [place] Work Phone: Radiology Comment [...] Bettye farfan MD Work Phone: [facility] [place] Comment on above: Patient Request Start: 12-24-2021 ambulatory Bettye Honeycutt Work Phone: [facility] [place] Comment on above: Cough Start: 12-09-2021 ambulatory Bettye Honeycutt Work Phone: [facility] [place] Comment on above: tetnus shot Start: 11-24-2021 Telephone encounter Amada Muro APRN.CNP Work Phone: [facility] [place] Comment on above: Results Start: 05-29-2017 End: 06-02-2020 Patient encounter procedure Bettye Powell MD Work Phone: [facility] Start: 07-07-2014 Patient encounter status Amada ayala APRN.CNP Work Phone: [facility] Work Phone: Procedures Date Procedure Procedure Detail [...] Adult depression scr eening assessment Amada Older HEAD PORTER.C 13 CATAPULT OPERATOR Work Phone: Start: 07-02-2020 Colonoscopy Amada Older HEAD PORTER.C 13 CATAPULT OPERATOR Work Phone: Plan of Treatment Date Care Activity Detail Author Start: 08-03-2033 Urine microalbumin profile DTaP,Tdap,Td Vaccine (6 - Td or Tdap) [facility] Start: 08-31-2026 Screening for malign ant neoplasm of colon [facility] Start: 09-16-2025 Glaucoma screening Dilated Retinal E xam [facility] Start: 09-08-2025 Annual PCP Team [place] [employer] Picker zack Disease Visit Annual PCP Team Chronic Disease Visit [facility] Start: 09-08-2025 Diabetic foot examination Diabetic Foot Exam [facility] Start: 09-08-2025 RSV Vaccine (1 - Ris k 60-74 years 1-dose series) RSV Vaccine (1 - Risk 60-74 years 1-dose series) [facility] Comment on above: Postponed from 05/07 (Declined at this time) Start: 09-08-2025 Shingrix Vaccine (1 of 2) Shingrix Vaccine (1 of 2) [facility] Comment on above: Postponed from 05/07 (Declined at this time) Start: 03-19-2025 Annual PCP Team [place] Picker zack Disease Visit Annual PCP Team Chronic Disease Visit [facility] Start: 03-10-2025 Annual PCP Team [place] Picker zack Disease Visit Annual PCP Team Chronic Disease Visit [facility] Start: 03-10-2025 Pneumococcal vaccination Pneumococcal Vaccine (2 of 2 - PCV) [facility] Start: 03-10-2025 Pneumococcal Vaccine : 50+ (2 of 2 - PCV) Pneumococcal Vaccine: 50+ (2 of 2 - PCV) [facility] Start: 03-10-2025 End: 03-10-2025 Patient encounter procedure 03/10/2025 8:40 AM EDT Office Visit [facility] [place] [address] [place], [place] [id number] Bettye Powell MD [address] [facility] [place] [address] 6 month followup [facility] [place] Comment on above: 6 month followup Start: 03-08-2025 Hepatitis B surface antibody level LDL Cholesterol [facility] Start: 02-09-2025 Influenza vaccination Influenza Vacc ine (#1) [facility] Comment on above: Postponed from 04/13 (Declined at this time) Start: 12-24-2024 Urine microalbumin profile [facility] Start: 09-08-2024 End: 12-08-2024 Cobalamin (Vitamin B12) [Mass/volume] in Serum or Plasma VITAMIN B12 Lab Routine Vitamin B12 deficiency Expected: 09/08/2024, Expires: 12/08/2024 [facility] Comment on above: Expected: 09/08/2024 , Expires: 12/08/2024 Start: 09-08-2024 Hemoglobin A1c measurement HbA1C [facility] Start: 09-08-2024 End: 12-08-2024 Microalbumin/Creatinine [Mass Ratio] in Urine ALBUMIN/CREATININE RATIO, URINE Lab Routine Type 2 diabetes mellitus without complication, without long-term current use of insulin (HCC) Expected: 09/08/2024, Expires: 12/08/2024 [facility] Comment on above: Expected: 09/08/2024 , Expires: 12/08/2024 Start: 09-08-2024 End: 09-08-2024 Patient encounter procedure 09/08/2024 8:40 AM EST Office Visit [facility] [place] [address] [place], [place] [id number] Bettye Powell MD [address] [place] [address] 6 mo follow up [facility] [place] Comment on above: 6 mo follow up Start: 08-03-2024 Annual PCP Team [employer] Picker zack Disease Visit Annual PCP Team Chronic Disease Visit [facility] Start: 05-04-2024 3 comp foot exam completed Diabetic Foot Exam [facility] Start: 05-04-2024 Annual PCP Team [place] Picker zack Disease Visit Annual PCP Team Chronic Disease Visit [facility] Start: 05-04-2024 Diabetic foot examination Diabetic Foot Exam [facility] Start: 05-04-2024 Hepatitis B screening Urine Al bumin:Creatinine Ratio [facility] Start: 05-04-2024 Hepatitis B Vaccine (1 of 3 - Risk 3-dose series) Hepatitis B Vaccine (1 of 3 - Risk 3-dose series) [facility] Comment on above: Postponed from 05/07 (Declined at this time) Start: 05-04-2024 HIV Screening HIV Screening [facility] Comment on above: Postponed from 05/07 (Declined at this time) Start: 05-04-2024 HIV screening HIV Screening [facility] Comment on above: Postponed from 05/07 (Declined at this time) Start: 05-04-2024 Prostate Cancer Screening Discussion Prostate Cancer Screening Discussion [facility] Comment on above: Postponed from 06/14 (Declined at this time) Start: 05-04-2024 Prostate specific antigen measurement Prostate Cancer Screening Discussion [facility] Comment on above: Postponed from 06/14 (Declined at this time) Start: 05-03-2024 Hepatitis B surface antibody level LDL Cholesterol [facility] Start: 04-13-2024 Influenza vaccination C [facility] Start: 03-10-2024 End: 03-10-2024 Patient encounter procedure 03/10/2024 9:20 AM EDT Office Visit [facility] [place] [address] [place] [address] Bettye Powell MD [address] [place] [address] 6 mth f/u [facility] [place] Comment on above: 6 mth f/u Start: 02-26-2024 End: 05-27-2024 CBC panel - Blood by Automated count COMPLETE BLOOD COUNT Lab Routine Type 2 diabetes mellitus without complication, without long-term current use of insulin (HCC) Expected: 02/26/2024, Expires: 05/27/2024 [facility] Comment on above: Expected: 02/26/2024 , Expires: 05/27/2024 Start: 02-26-2024 End: 05-27-2024 Thyrotropin [Units/volume] in Serum or Plasma THYROID STIMULATING HORMONE Lab Routine Medication management Expected: 02/26/2024, Expires: 05/27/2024 [facility] Work Phone: Comment on above: Expected: 02/26/2024 , Expires: 05/27/2024 Start: 02-10-2024 Influenza vaccination Influenza Vacc ine (#1) [facility] Comment on above: Postponed from 04/13 (Declined at this time) Start: 02-02-2024 Hemoglobin A1c measurement HbA1C [facility] Start: 12-15-2023 ANNUAL PCP TEAM CRITICAL POWER TECHNICIAN ZACK DISEASE VISIT ANNUAL PCP TEAM CHRONIC DISEASE VISIT [facility] Start: 11-01-2023 Hemoglobin A1c/Hemoglobin.total in Blood HbA1C [facility] Start: 10-02-2023 End: 01-01-2024 Urinalysis complete panel - Urine URINALYSIS WITH MICROSCOPIC, REFLEX CULTURE Lab Routine Kidney stones Abnormal urinalysis Expected: 10/02/2023, Expires: 01/01/2024 [facility] Work Phone: Comment on above: Expected: 10/02/2023 , Expires: 01/01/2024 Start: 09-24-2023 End: 10-16-2024 Ct abdomen & pelvis w/o contrst 1/> body re CT UROGRAM WO/W IVCON Radiology Routine Gross hematuria Expected: 09/24/2023, Expires: 10/16/2024 [facility] Work Phone: Comment on above: Expected: 09/24/2023 , Expires: 10/16/2024 Start: 09-17-2023 End: 12-17-2023 CREATININE BLD CREATININE BLD Lab Routine Gross hematuria Expected: 09/17/2023, Expires: 12/17/2023 [facility] Work Phone: Comment on above: Expected: 09/17/2023 , Expires: 12/17/2023 Start: 09-17-2023 End: 12-17-2023 Urinalysis complete panel - Urine URINALYSIS WITH MICROSCOPIC, REFLEX CULTURE Lab Routine Gross hematuria History of kidney stones Expected: 09/17/2023, Expires: 12/17/2023 [facility] Work Phone: Comment on above: Expected: 09/17/2023 , Expires: 12/17/2023 Start: 09-14-2023 Glaucoma screening Dilated Retinal E xam [facility] Start: 09-14-2023 Hepatitis C antibody , confirmatory test DILATED RETINAL EXAM [facility] Start: 08-13-2023 Behavioral Health Screening Behavioral Health Screening [facility] Start: 08-13-2023 Depression Assessment Depression Ass essment [facility] Start: 07-25-2023 End: 09-24-2023 Basic metabolic 2000 panel - Serum or Plasma BASIC METABOLIC PNL Lab Routine 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 Expected: 07/25/2023 (Approximate), Expires: 09/24/2023 [facility] Work Phone: Comment on above: Expected: 07/25/2023 (Approximate), Expires: 09/24/2023 Start: 07-25-2023 End: 09-24-2023 CBC panel - Blood by Automated count CBC Lab Routine 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 Expected: 07/25/2023 (Approximate), Expires: 09/24/2023 [facility] Work Phone: Comment on above: Expected: 07/25/2023 (Approximate), Expires: 09/24/2023 Start: 07-25-2023 End: 09-24-2023 Hemoglobin A1c in Blood HGB A1C Lab Routine Type 2 diabetes mellitus without complication, without long-term current use of insulin (HCC) Expected: 07/25/2023 (Approximate), Expires: 09/24/2023 [facility] Work Phone: Comment on above: Expected: 07/25/2023 (Approximate), Expires: 09/24/2023 Start: 07-25-2023 End: 09-24-2023 Lipid 1996 panel - Serum or Plasma LIPID PANEL BASIC Lab Routine Mixed hyperlipidemia Expected: 07/25/2023 (Approximate), Expires: 09/24/2023 [facility] Work Phone: Comment on above: Expected: 07/25/2023 (Approximate), Expires: 09/24/2023 Start: 07-02-2023 Colonoscopy COLONOSCOPY [facility] Start: 07-02-2023 COLORECTAL CANCER SCREENING COLORECTAL CANCER SCREENING [facility] Start: 06-22-2023 ANNUAL PCP TEAM CRITICAL POWER TECHNICIAN ZACK DISEASE VISIT ANNUAL PCP TEAM CHRONIC DISEASE VISIT [facility] Start: 06-22-2023 COVID-19 VACCINE (#1) COVID-19 VACCI NE (#1) [facility] Comment on above: Postponed from 11/04 (Declined at this time) Start: 06-22-2023 PNEUMOCOCCAL (2 - PCV) PNEUMOCOCCAL (2 - PCV) [facility] Comment on above: Postponed from 02/14 (Declined at this time) Start: 06-22-2023 Pneumococcal vaccination Pneumococcal Vaccine (2 - PCV) [facility] Comment on above: Postponed from 02/14 (Declined at this time) Start: 06-22-2023 SHINGRIX VACCINE (1 of 2) SHINGRIX VACCINE (1 of 2) [facility] Comment on above: Postponed from 05/07 (Declined at this time) Start: 04-13-2023 Influenza vaccination INFLUENZA (Sea son Ended) [facility] Start: 02-09-2023 Influenza vaccination INFLUENZA (#1) [facility] Comment on above: Postponed from 04/13 (Declined at this time) Start: 01-20-2023 ANNUAL PCP TEAM CRITICAL POWER TECHNICIAN ZACK DISEASE VISIT ANNUAL PCP TEAM CHRONIC DISEASE VISIT [facility] Start: 01-05-2023 ANNUAL PCP TEAM CRITICAL POWER TECHNICIAN ZACK DISEASE VISIT ANNUAL PCP TEAM CHRONIC DISEASE VISIT [facility] Start: 11-23-2022 Hepatitis B surface antibody level LDL CHOLESTEROL [facility] Start: 08-30-2022 Hepatitis C antibody , confirmatory test DILATED RETINAL EXAM [facility] Start: 08-13-2022 DEPRESSION ASSESSMENT DEPRESSION ASS ESSMENT [facility] Start: 08-04-2022 End: 10-04-2022 Bacteria identified in Urine by Culture URINE CULTURE Microbiology Routine Nephrolithiasis Expected: 08/04/2022, Expires: 10/04/2022 [facility] Work Phone: Comment on above: Expected: 08/04/2022 , Expires: 10/04/2022 Start: 08-04-2022 End: 10-04-2022 Basic metabolic 2000 panel - Serum or Plasma BASIC METABOLIC PNL Lab Routine Nephrolithiasis Expected: 08/04/2022, Expires: 10/04/2022 [facility] Work Phone: Comment on above: Expected: 08/04/2022 , Expires: 10/04/2022 Start: 08-04-2022 End: 10-04-2022 CBC W Auto Differential panel - Blood CBC + DIFF Lab Routine Nephrolithiasis Expected: 08/04/2022, Expires: 10/04/2022 [facility] Work Phone: Comment on above: Expected: 08/04/2022 , Expires: 10/04/2022 Start: 08-04-2022 End: 10-04-2022 Urinalysis complete panel - Urine URINALYSIS, WITH MICROSCOPIC Lab Routine Nephrolithiasis Expected: 08/04/2022, Expires: 10/04/2022 [facility] Work Phone: Comment on above: Expected: 08/04/2022 , Expires: 10/04/2022 Start: 07-29-2022 ANNUAL PCP TEAM CRITICAL POWER TECHNICIAN ZACK DISEASE VISIT ANNUAL PCP TEAM CHRONIC DISEASE VISIT [facility] Start: 05-25-2022 Hemoglobin A1c/Hemoglobin.total in Blood HBA1C [facility] Start: 2022 RSV Vaccine (1 - 1-d ose 60+ series) RSV Vaccine (1 - 1-dose 60+ series) [facility] Start: 2022 RSV Vaccine (1 - Ris k 60-74 years 1-dose series) RSV Vaccine (1 - Risk 60-74 years 1-dose series) [facility] Start: 04-13-2022 Influenza vaccination INFLUENZA (Sea son Ended) [facility] Start: 02-08-2022 Adult depression screening assessment DEPRESSION SCREENING [facility] Start: 06-14-2020 PROSTATE CANCER SCREENING DISCUSSION PROSTATE CANCER SCREENING DISCUSSION [facility] Start: 06-14-2020 Prostate specific antigen measurement Prostate Cancer Screening Discussion [facility] Start: 05-26-2020 3 comp foot exam completed DIABETIC FOOT EXAM [facility] Start: 05-24-2020 Hepatitis B screening URINE AL BUMIN:CREATININE RATIO [facility] Start: 02-14-2017 PNEUMOCOCCAL (2 - PCV) PNEUMOCOCCAL (2 - PCV) [facility] Start: 02-14-2017 Pneumococcal vaccination [facility] Start: 05-06-2015 FECAL OCCULT BLOOD FECAL OCCULT BLOO D [facility] Start: 05-06-2015 Screening for malign ant neoplasm of colon Fecal Occult Blood [facility] Start: 2012 SHINGRIX VACCINE (1 of 2) SHINGRIX VACCINE (1 of 2) [facility] Start: 2007 COLOGUARD (FIT-DNA) COLOGUARD (FIT-D NA) [facility] Start: [address] COLONOGRAPHY [facility] Start: 2007 Screening for malign ant neoplasm of colon [facility] Start: 2007 SIGMOIDOSCOPY SIGMOIDOSCOPY [facility] Start: 1981 HEPATITIS B (1 of 3 - Risk 3-dose series) HEPATITIS B (1 of 3 - Risk 3-dose series) [facility] Start: 1981 SHINGRIX VACCINE (1 of 2) SHINGRIX VACCINE (1 of 2) [facility] Start: 1980 Anxiety Screening Anxiety Screening [facility] Start: 1980 Depression Screening Depression Scre ening [facility] Start: 1980 HIV SCREENING HIV SCREENING [facility] Start: 1980 HIV screening HIV Screening [facility] Start: 1967 COVID-19 VACCINE (#1) COVID-19 VACCI NE (#1) [facility] Start: 1967 COVID-19 VACCINE (1) COVID-19 VACCIN E (1) [facility] Start: 1962 Covid-19 Vaccine (#1) Covid-19 Vacci ne (#1) [facility] End: 06-22-2023 CBC panel - Blood by Automated count CBC Lab Routine Type 2 diabetes mellitus without complication, without long-term current use of insulin (HCC) Every 6 months for 12 Occurrences starting 06/22/2022 until 06/22/2023 [facility] Work Phone: Comment on above: Every 6 months for 1 2 Occurrences starting 06/22/2022 until 06/22/2023 End: 09-08-2025 CBC panel - Blood by Automated count COMPLETE BLOOD COUNT Lab Routine Type 2 diabetes mellitus without complication, without long-term current use of insulin (HCC) Every 6 months for 12 Occurrences starting 09/08/2024 until 09/08/2025 [facility] Comment on above: Every 6 months for 1 2 Occurrences starting 09/08/2024 until 09/08/2025 End: 06-22-2023 Comprehensive metabolic 2000 panel - Serum or Plasma COMP METABOLIC PANEL Lab Routine Type 2 diabetes mellitus without complication, without long-term current use of insulin (HCC) Every 6 months for 12 Occurrences starting 06/22/2022 until 06/22/2023 [facility] Work Phone: Comment on above: Every 6 months for 1 2 Occurrences starting 06/22/2022 until 06/22/2023 End: 09-08-2025 Comprehensive metabolic 2000 panel - Serum or Plasma COMPREHENSIVE METABOLIC PANEL Lab Routine Type 2 diabetes mellitus without complication, without long-term current use of insulin (HCC) Every 6 months for 12 Occurrences starting 09/08/2024 until 09/08/2025 [facility] Comment on above: Every 6 months for 1 2 Occurrences starting 09/08/2024 until 09/08/2025 End: 07-22-2023 Ct abdomen & pelvis w/o contrast material CT FLANK WO IVCON Radiology RIMMA Gross hematuria Calculus of other lower urinary tract location 1 Occurrences starting 06/22/2022 until 07/22/2023 [facility] Work Phone: Comment on above: 1 Occurrences starti ng 06/22/2022 until 07/22/2023 End: 06-22-2023 Hemoglobin A1c in Blood HGB A1C Lab Routine Type 2 diabetes mellitus without complication, without long-term current use of insulin (HCC) Every 3 months for 24 Occurrences starting 06/22/2022 until 06/22/2023 [facility] Work Phone: Comment on above: Every 3 months for 2 4 Occurrences starting 06/22/2022 until 06/22/2023 End: 09-08-2025 Hemoglobin A1c in Blood HEMOGLOBIN A1C Lab Routine Type 2 diabetes mellitus without complication, without long-term current use of insulin (HCC) Every 3 months for 24 Occurrences starting 09/08/2024 until 09/08/2025 [facility] Work Phone: Comment on above: Every 3 months for 2 4 Occurrences starting 09/08/2024 until 09/08/2025 End: 06-22-2023 Lipid 1996 panel - Serum or Plasma LIPID PANEL BASIC Lab Routine Type 2 diabetes mellitus without complication, without long-term current use of insulin (HCC) Every 6 months for 12 Occurrences starting 06/22/2022 until 06/22/2023 [facility] Work Phone: Comment on above: Every 6 months for 1 2 Occurrences starting 06/22/2022 until 06/22/2023 End: 09-08-2025 Lipid 1996 panel - Serum or Plasma LIPID PANEL BASIC Lab Routine Type 2 diabetes mellitus without complication, without long-term current use of insulin (HCC) Every 6 months for 12 Occurrences starting 09/08/2024 until 09/08/2025 [facility] Comment on above: Every 6 months for 1 2 Occurrences starting 09/08/2024 until 09/08/2025 End: 02-19-2023 LUNG VOLUMES LUNG VOLUMES PFT Routine Cough 1 Occurrences starting 01/20/2022 until 02/19/2023 [facility] Work Phone: Comment on above: 1 Occurrences starti ng 01/20/2022 until 02/19/2023 End: 02-19-2023 METHACHOLINE CHALLENGE METHACHOLINE CHALLENGE PFT Routine Cough Bronchitis 1 Occurrences starting 01/20/2022 until 02/19/2023 [facility] Work Phone: Comment on above: 1 Occurrences starti ng 01/20/2022 until 02/19/2023 POST VOID RESIDUAL POST VOID RES IDUAL Procedures Routine Kidney stones Ordered: 08/22/2022 [facility] Work Phone: Comment on above: Ordered: 08/22/2022 End: 02-19-2023 SPIROMETRY - BASELINE AND POST DILATOR SPIROMETRY - BASELINE AND POST DILATOR PFT Routine Cough 1 Occurrences starting 01/20/2022 until 02/19/2023 [facility] Work Phone: Comment on above: 1 Occurrences starti ng 01/20/2022 until 02/19/2023 Tdap vaccine 7 yrs/> im TDAP VAC CINE, AGE 7+ YR (ADACEL, BOOSTRIX) Immunization/Injection Routine Need for vaccination Ordered: 06/27/2023 [facility] Work Phone: Comment on above: Ordered: 06/27/2023 End: 06-22-2023 Thyrotropin [Units/volume] in Serum or Plasma TSH BLD Lab Routine Type 2 diabetes mellitus without complication, without long-term current use of insulin (HCC) Every 3 months for 24 Occurrences starting 06/22/2022 until 06/22/2023 [facility] Work Phone: Comment on above: Every 3 months for 2 4 Occurrences starting 06/22/2022 until 06/22/2023 End: 09-08-2025 Thyrotropin [Units/volume] in Serum or Plasma THYROID STIMULATING HORMONE Lab Routine Type 2 diabetes mellitus without complication, without long-term current use of insulin (HCC) Every 3 months for 24 Occurrences starting 09/08/2024 until 09/08/2025 [facility] Comment on above: Every 3 months for 2 4 Occurrences starting 09/08/2024 until 09/08/2025 US Lower extremity vein US LEG V EIN DVT UNL VAS LAB Vascular Lab STAT Pain of left calf Edema of left lower extremity 03/19/2024 10:54 AM EDT [facility] Work Phone: [facility] Immunizations Immunization Date Immunization Notes Care Provider Alicia peters 03-10-2024 pneumococcal polysaccharide vaccine, 23 valent Bettye Powell MD Work Phone: [facility] 08-03-2023 tetanus toxoid, redu kristina diphtheria toxoid, and acellular pertussis vaccine, adsorbed Everette Cross HEAD P[employer]TER.C 13 CATAPULT OPERATOR, DNP Work Phone: [facility] 08-08-2016 influenza virus vacc ine, unspecified formulation Amada Older [employer] Work Phone: [facility] 02-15-2016 pneumococcal polysaccharide vaccine, 23 valent Amada Older [employer] Work Phone: [facility] Work Phone: 12-24-2014 diphtheria and tetan us toxoids, adsorbed for pediatric use Amada Older [employer] Work Phone: [facility] Work Phone: 12-24-2014 tetanus and diphther ia toxoids, adsorbed, preservative free, for adult use (5 Lf of tetanus toxoid and 2 Lf of diphtheria toxoid) Amada Older [employer] Work Phone: [facility] 09-14-2006 tetanus toxoid, redu kristina diphtheria toxoid, and acellular pertussis vaccine, adsorbed Amada Older [employer] Work Phone: [facility] Work Phone: 04-30-1996 diphtheria and tetan us toxoids, adsorbed for pediatric use Amada Older [employer] Work Phone: [facility] Work Phone: Payers Date Payer Category Payer Private Health Insurance MMO SUP ERMED O [id number] 2024 Unknown [id number] 2024 Self-pay 2019 Unknown JALIL VÁSQUEZ PPO [id number] 2019-Present [phone] [address] [place] [address] PPO [id number] 2019 Unknown [id number] 2019 Unknown [id number] Unknown [id number] Unknown [id number] Social History Date Type Detail Facility Start: 11-22-2018 End: 09-17-2023 Tobacco smoking status NHIS Ex-smoker [facility] Work Phone: End: 02-16-1988 History of tobacco use Current smoker [facility] Work Phone: End: 02-16-1988 History of tobacco use Cigar Smoker [facility] Work Phone: Start: 07-29-2021 End: 01-20-2022 Alcohol intake Current drinker of alcohol (finding) [facility] Start: 02-08-2021 History SDOH Alcohol Frequency 98 [facility] Start: 07-02-2020 History SDOH Alcohol Comment bourbon every two to three weeks [facility] Start: 02-08-2021 History SDOH Housing Homeless Last Year 3 [facility] Start: 11-22-2018 End: 06-22-2022 Tobacco Comment Pt will have an occassional cigar.- done with cigars [facility] Start: 1960 Sex Assigned At Not on file C [facility] Start: 12-26-2021 End: 07-11-2022 Exposure to SARS-CoV-2 (event) Not sure [facility] Work Phone: Start: 11-22-2018 End: 09-17-2023 Tobacco use and exposure Smokeless tobacco non-user [facility] Work Phone: Start: 02-08-2021 End: 09-03-2022 History of Social function [facility] Start: 02-08-2021 End: 09-03-2022 Social connection and isolation panel [facility] In a typical week, how many times do you talk on the telephone with family, friends, or neighbors? Patient refused [facility] Are you now , , , , never or living with a partner? Refused [facility] (I/We) worried whether (my/our) food would run out before (I/we) got money to buy more. DK or Refused [facility] Start: 09-17-2023 End: 09-08-2024 Alcohol intake Ex-drinker (finding) [facility] Has the [employer], gas, oil, or water [employer] threatened to shut off services in your home in past 12Mo No [facility] Are you now , , , , never or living with a partner? [facility] How often to you hav e a drink containing alcohol? 2-3 time sa week [facility] How many standard drinks containing alcohol do you have on a typical day? 1 or 2 [facility] How often do you hav e 6 or more drinks on 1 occasion? Never [facility] Do you feel stress - tense, restless, nervous, or anxious, or unable to sleep at night because your mind is troubled all the time - these days [OSQ] Not at all [facility] (I/We) worried whether (my/our) food would run out before (I/we) got money to buy more. Never true [facility] NEGATED: Highlighted rowStart: NINF History of tobacco use Passive smoker [facility] Medical Equipment Procedure Code Equipment Code Equipment Origin al Text Equipment Identifier Dates Mesh Soft Prolen e 50x50 Cm - [id number] Start: 06-26-2018 Functional Status Date Assessment Result Facility 06-30-2018 Are you deaf, or do you have serious difficulty hearing No 06/30/2018 11:26 AM Candy Tran APRN.C 13 CATAPULT OPERATOR No [facility] Work Phone: 06-30-2018 Are you blind, or do you have serious difficulty seeing, even when wearing glasses No 06/30/2018 11:26 AM Candy Tran APRN.CNP No [facility] 06-30-2018 Do you have difficul ty dressing or bathing No 06/30/2018 11:26 AM Candy Tran APRN.CNP No [facility] 06-30-2018 Because of a physica l, mental, or emotional condition, do you have difficulty doing errands alone such as visiting a physician's office or shopping No 06/30/2018 11:26 AM Candy Tran APRN.CNP No [facility] 11-07-2017 Do you have serious difficulty walking or climbing stairs No 11/07/2017 3:51 PM EDT Promise Rubio (Rn), RN No [facility] Mental Status Date Assessment Result Facility 06-30-2018 Because of a physica l, mental, or emotional condition, do you have serious difficulty concentrating, remembering, or making decisions No 06/30/2018 11:26 AM Candy Tran APRN.ALANIS No [facility] Clinical Notes 06-26-2018 to 09-26-2024 Telephone Encounter [...] Sarah RN September 26, 2024 4:40 PM [facility] 09-26-2024 Miscellaneous Notes The patient has been [...] 2024 4:40 PM documented in this encounter [facility] 09-08-2024 Note HNO ID: [id number] Author: BETTYE POWELL MD Service: ? Author [...] stable. He has been to see an snap shearer recently. He has been to see Michelle [...] Date ABDOMINAL SURGERY HX CARDIAC CATH 10/24/2018 [facility] with stent placement COLON SURGERY HX COLONOSCOPY [...] nasal congestion/sinus symptoms, (more content not included)... [facility] 09-08-2024 History of Present illness Narrative Reason [...] stable. He has been to see an snap shearer recently. He has been to see Michelle [...] Date ABDOMINAL SURGERY HX CARDIAC CATH 10/24/2018 [facility] with stent placement COLON SURGERY HX COLONOSCOPY [...] ileostomy reversal PSA (EXTERNAL) 06/14/2015 normal (0.76) [facility] REMOVAL OF KIDNEY STONE 2022 FAMILY HISTORY [...] complication, without long-term current use of insulin ([facility]) - ICD9: 250.00, ICD10: E11.9 (primary diagnosis) Will await test results to discuss further. - HEMOGLOBIN A1C - COMPREHENSIVE METABOLIC PANEL - COMPLETE BLOOD COUNT - THYROID STIMULATING HORMONE - LIPID PANEL BASIC - ALBUMIN/CREATININE RATIO, URINE 2. 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 BMI 39.0-39.9,adult - ICD9: V85.39, ICD10: Z68.39 Advised to cont efforts with exercising and eating well 4. 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 Pt was instructed to keep this on hand incase he needs it. It has been while since he ordered. Kept what he had on hand and then could no longer ready the label on the bottle and requested a refill. No need to fill here at this time. Lea Hamilton LPN [facility] 05-15-2024 Miscellaneous Notes Spoke with pt and he did get it thru his estimator printing plate making. Pt was instructed to keep this on [...] Marie Mcelroy MA documented in this encounter [facility] 05-12-2024 Telephone encounter Note Prescription Refill Information [...] Quintero LPN May 12, 2024 2:44 PM [facility] 05-12-2024 Miscellaneous Notes Prescription Refill Information The [...] the pharmacy. TY documented in this encounter [facility] 05-12-2024 Telephone encounter Note Please call patient or send a Mychart message when all requested Rx's are sent to the pharmacy. TY [facility] 05-12-2024 Telephone encounter Note This has not been refilled by us in over 3 years. Has he been getting this through a different provider? Has something changed and he is needing again? Thank you Amada Muro APRN.ALANIS [facility] Work Phone: 05-12-2024 Telephone encounter Note NOV [...] notify patient. Please review. Marie Mcelroy MA [facility] 03-20-2024 Telephone encounter Note Phoned patient and went over results, notes from Lizeth Bradford NP with understanding. [facility] 03-20-2024 Miscellaneous Notes Phoned patient and went [...] Lizeth Bradford APRN.CNP documented in this encounter [facility] 03-20-2024 Telephone encounter Note ----- Message from Lizeth Bradford APRN.CNP sent at 03/19/2024 5:08 PM EDT ----- Please let the patient know as of right now the preliminary result of the ultrasound is negative for blood clots. I will contact him on My Chart once the final has resulted Lizeth Bradford APRN.CNP [facility] 03-19-2024 Note HNO ID: [id number] Author: LIZETH BRADFORD APRN.C 13 CATAPULT OPERATOR Service: ? Author Type: Nurse Practitioner Type: [...] ABDOMINAL SURGERY HX 10/24/2018: CARDIAC CATH Comment: [facility] with stent placement No date: COLON SURGERY HX 06/13/2017: COLONOSCOPY FLX DX W/COLLJ SPEC WHEN PFRMD Comment: Colonoscopy 05/29/2018: COLONOSCOPY FLX DX W/COLLJ SPEC WHEN PFRMD Comment: Colonoscopy 06/26/2019: COLONOSCOPY FLX DX W/COLLJ SPEC WHEN PFRMD Comment: Colonoscopy 07/02/2020: COLONOSCOPY FLX DX W/COLLJ SPEC WHEN PFRMD Comment: Colonoscopy No date: ESOPHAGOGASTRODUODENOSCOPY TRANSORAL DIAGNOSTIC Comment: EGD 2018: HERNIA REPAIR HX Comment: incisional 07/11/2022: [facility] CKD PROGRAM 07/2017: PAST SURGICAL HISTORY OF Comment: Diagnostic laparoscopy, open low anterior rectal and sigmoid resection, mobilization of splenic flexure, flexible sigmoidoscopy, diverting loop ileostomy 11/05/2017: PAST SURGICAL HISTORY OF Comment: ileostomy reversal 06/14/2015: PSA (EXTERNAL) Comment: normal (0.76) [facility] 2022: REMOVAL OF KIDNEY STONE ALLERGIES Atorvastatin, [...] reviewed. Constitutional: Appeara (more content not included)... [facility] 03-19-2024 History of Present illness Narrative CC: [...] ABDOMINAL SURGERY HX 10/24/2018: CARDIAC CATH Comment: [facility] with stent placement No date: COLON SURGERY [...] reversal 06/14/2015: PSA (EXTERNAL) Comment: normal (0.76) [facility] 2022: REMOVAL OF KIDNEY STONE ALLERGIES Atorvastatin, [...] Take 50 mg by mouth once daily. [facility]) ergocalciferol 50,000 unit capsule (VITAMIN [...] VEIN DVT UNL VAS LAB Lizeth Bradford APRN.C 13 CATAPULT OPERATOR Prescription instructions reviewed with patient as applicable. Potential red flag symptoms discussed with the patient. Reviewed appropriate action plan to take if red flag symptoms occur. Patient agreeable to treatment plan. Lizeth Bradford APRN.ALANIS documented in this encounter [facility] 03-10-2024 History of Present illness Narrative Reason [...] stable. He has been to see an snap shearer recently. He has been to see Michelle [...] Date ABDOMINAL SURGERY HX CARDIAC CATH 10/24/2018 [facility] with stent placement COLON SURGERY HX COLONOSCOPY [...] ileostomy reversal PSA (EXTERNAL) 06/14/2015 normal (0.76) [facility] REMOVAL OF KIDNEY STONE 2022 FAMILY HISTORY [...] Bettye Powell MD documented in this encounter [facility] 03-10-2024 Note HNO ID: [id number] Author: BETTYE POWELL MD Service: ? Author [...] stable. He has been to see an snap shearer recently. He has been to see Michelle [...] Date ABDOMINAL SURGERY HX CARDIAC CATH 10/24/2018 [facility] with stent placement COLON SURGERY HX COLONOSCOPY [...] ileostomy reversal PSA (EXTERNAL) 06/14/2015 normal (0.76) [facility] REMOVAL OF KIDNEY STONE 2022 FAMILY HISTORY [...] GI: No dysp (more content not included)... [facility] 02-26-2024 Note Patient Outreach (IN TMMN) ---- WALDO ZEE ([id number]) 1960 M [facility] Date Time Provider Department 02/26/24 BETTYE POWELL [...] [E11.9] Order(s):THYROID STIMULATING HORMONE [SQTSH] Order #: [id number] FUTURE COMPLETE BLOOD COUNT [SQCBC] Order #: [id number] FUTURE Prescriptions as of 02/29/2024 - levothyroxine [...] [K43.2] 06/26/2018 06/02/2020 Coronary artery disease involving sitka marcano*06/02/2020 Fatty liver [K76.0] 02/08/2021 Morbid obesity (HCC) [E66.01] 02/08/2021 Burning sensation of feet [R20.8] 08/03/2023 History of colonic polyps [Z86.010] 08/31/2023 Encounter Status:Closed by PenBoutiqueTALIBUSELeeanne on 02/29/24 [facility] 11-26-2023 Miscellaneous Notes Patient scheduled f/u appt [...] now.. Michelle Valencia documented in this encounter [facility] 10-02-2023 Miscellaneous Notes Called patient back and answered his questions. Patient verbalized understanding. Patient called today regarding his recent CT scan Would like to discuss results, and has additional questions Please contact the patient, he can be reached at [phone] documented in this encounter [facility] 10-02-2023 Miscellaneous Notes Called patient and gave [...] Everette Cross DNP, ALANIS Department of Urology [facility] documented in this encounter [facility] 10-01-2023 History of Present illness Narrative Radiology [...] PATIENT PRESENTS WITH AN IMPLANTABLE OR ATTACHED HEEL SORTER: No ALLERGIES: Reviewed and unchanged CONTRAST ALLERGY: [...] TIME: 1:41 PM documented in this encounter [facility] 10-01-2023 Note HNO ID: [id number] Author: VIRGINIE BENAVIDEZ RT(R) Service: ? Author Type: Lehr Operator Type: Progress Notes Filed: 10/01/2023 13:41 Note [...] PATIENT PRESENTS WITH AN IMPLANTABLE OR ATTACHED HEEL SORTER: No ALLERGIES: Reviewed and unchanged CONTRAST ALLERGY: [...] DATE: October 01, 2023 TIME: 1:41 PM [facility] 09-17-2023 Instructions Everette Cross APRN.ALANIS, ROSALIND - [...] skin on increases the oxalate content, but syriac fries and yams have around 40 mg to 50 mg per serving Beans: navy beans (70 mg per serving) and soybeans (50 mg per serving) Certain types of flour: soy flour (90 mg per serving), brown rice flour (65 mg per serving), and barley flour (40 mg per serving) Beets: about 80 mg per serving [place] powder and hot chocolate: 65 mg per [...] Cross APRN.ROSALIND THAPA documented in this encounter [facility] 09-17-2023 Note HNO ID: [id number] Author: EVERETTE CROSS APRN.ROSALIND THAPA Service: ? Author Type: Nurse Practitioner Type: Progress Notes Filed: 09/28/2023 16:12 Note Text: [facility] Referring provider: Bettye Powell MD New patient to Urology 09/17/2023 Chief Complaint Patient presents with: Kidney Stones HPI Waldo Zee is a 63 year old male who presents here today for a history of urinary symptoms and kidney stones. Hx sig for - Rectal cancer, DM, Obesity, Hypothyroidism, This is an established patient of Dr. Bettey Powell MD. This is a new patient [...] Date ABDOMINAL SURGERY HX CARDIAC CATH 10/24/2018 [facility] with stent placement COLON SURGERY HX COLONOSCOPY [...] ileostomy reversal PSA (EXTERNAL) 06/14/2015 normal (0.76) [facility] REMOVAL OF KIDNEY STONE 2022 Family History [...] needed for cold/allergy (more content not included)... [facility] 09-17-2023 History of Present illness Narrative [facility] Referring provider: Bettye Powell MD New patient [...] Date ABDOMINAL SURGERY HX CARDIAC CATH 10/24/2018 [facility] with stent placement COLON SURGERY HX COLONOSCOPY [...] ileostomy reversal PSA (EXTERNAL) 06/14/2015 normal (0.76) [facility] REMOVAL OF KIDNEY STONE 2022 Family History [...] which included preparing to see the patient, [id number] patient care, completing clinical documentation, performing a medically appropriate examination, counseling and educating the patient/family/caregiver and ordering medications, tests, or procedures. Everette Cross DNP, ALANIS Department of Urology [facility] documented in this encounter [facility] 09-11-2023 Note HNO ID: [id number] Author: TIFFANY TA PA-C Service: ? Author Type: Physician Access Tech Type: Progress Notes Filed: 09/11/2023 14:11 Note Text: This note was created using semiosBIO Technologiesriter. Subjective Waldo Zee is a 63 year [...] Date ABDOMINAL SURGERY HX CARDIAC CATH 10/24/2018 [facility] with stent placement COLON SURGERY HX COLONOSCOPY [...] ileostomy reversal PSA (EXTERNAL) 06/14/2015 normal (0.76) [facility] REMOVAL OF KIDNEY STONE 2022 FAMILY HISTORY [...] regular rhythm. Hea (more content not included)... [facility] 08-24-2023 Telephone encounter Note Patient notified [facility] 08-24-2023 Miscellaneous Notes Patient notified He should check with prescribing physician regarding the metformin, all other meds can take as usual. Anything that he has to take in the morning, can take with tiny sip of water morning of procedure 08/31/2023 COLON/EGD ASC Patient asking in regards to what medications he can and cannot take prior to procedure Please advise Britney Leung Chief Marketing Officer Regla please place orders documented in this encounter [facility] 08-24-2023 Telephone encounter Note He should check with prescribing physician regarding the metformin, all other meds can take as usual. Anything that he has to take in the morning, can take with tiny sip of water morning of procedure [facility] Work Phone: 08-23-2023 Telephone encounter Note 08/31/2023 COLON/EGD ASC Patient asking in regards to what medications he can and cannot take prior to procedure Please advise Britney Leung Chief Marketing Officer Regla please place orders [facility] 06-27-2023 Miscellaneous Notes Patient calls and notified [...] Lea Hamilton LPN documented in this encounter [facility] 06-01-2023 Miscellaneous Notes TC to patient to [...] referred to previous arch supports? Thank you Amdaa Muro APRN.CNP Patient calling and asking if [...] updates. Thank you. documented in this encounter [facility] 05-28-2023 Miscellaneous Notes Please seen PCP phone encounter from 05/28/2023. Beatrice Schreiber LPN Waldo called. He would like to speak with someone in Dr. Lowe's office regarding orthotics, he is looking for a specific type and is not sure if the office carries them or if they can order them. Mitzi Edmonds RN documented in this encounter [facility] 05-04-2023 History of Present illness Narrative CC: [...] of the time. Goes to [place] [facility] and had recent unconcerning routine visit. Last [...] HISTORY Procedure Laterality Date CARDIAC CATH 10/24/2018 [facility] with stent placement COLONOSCOPY FLX DX W/COLLJ [...] ileostomy reversal PSA (EXTERNAL) 06/14/2015 normal (0.76) [facility] ALLERGIES Dust Mites MEDICATIONS metFORMIN (GLUCOPHAGE) 500 [...] aerobic exercise 4. 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 - ICD9: 414.01, [...] Amada Muro APRN.CNP documented in this encounter [facility] 01-31-2023 Miscellaneous Notes Left message for return [...] Elly Santana LPN documented in this encounter [facility] 01-15-2023 Miscellaneous Notes Patient has been identified [...] Priyanka Wasserman Pss documented in this encounter [facility] 12-14-2022 History of Present illness Narrative Reason [...] eats something fast food - raymonds at [employer]... BF is usually cereal and milk. He [...] is completely normal. He did work the [employer] saw last week. Checks him bp at [...] HISTORY Procedure Laterality Date CARDIAC CATH 10/24/2018 [facility] with stent placement COLONOSCOPY FLX DX W/COLLJ [...] ileostomy reversal PSA (EXTERNAL) 06/14/2015 normal (0.76) [facility] FAMILY HISTORY Adopted: Yes Problem Relation Age [...] and exercise 3. 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 - ICD9: 414.01, ICD10: I25.10 Stable, no chest pain or sob 4. Mixed hyperlipidemia - ICD9: 272.2, ICD10: E78.2 Refused statin medication Bettye Powell MD documented in this encounter [facility] 12-11-2022 Miscellaneous Notes Patient has been identified [...] Guera Delacruz [employer] documented in this encounter [facility] 08-22-2022 Instructions Pedro Ponce PA-C - 08/22/2022 [...] (1/2 cup) Broccoli, steamed 1 (1/2 cup) [place] jelly 1 (1 Tbsp) Apple, raw 0.7 (1 fruit) Brogan flakes 0.6 (1 cup) documented in this encounter [facility] 08-22-2022 History of Present illness Narrative Images from the original note were not included. [facility] EST[facility]LISHED PATIENT CLINIC NOTE [...] HISTORY Procedure Laterality Date CARDIAC CATH 10/24/2018 [facility] with stent placement COLONOSCOPY FLX DX W/COLLJ [...] ileostomy reversal PSA (EXTERNAL) 06/14/2015 normal (0.76) [facility] FAMILY HISTORY: FAMILY HISTORY Adopted: Yes Problem [...] Strange MT, PA-C for new Rx Follow-up MICHEAL Modi MT, PA-C Verified name and date [...] Appointment with Pedro. documented in this encounter [facility] 07-12-2022 Miscellaneous Notes [employer] faxed. Will call pt to schedule with Pedro Ponce. Michelle GAGNON Patient needs [employer] and follow-up with Pedro Ponce in [place] documented in this encounter [facility] 07-11-2022 Note HNO ID: [id number] Author: Ruiz Cruz APRN.AIR TRAFFIC CONTROL OPERATOR Service: Nursing Author Type: Nurse Antique Clocks Repairer Type: Anesthesia Procedure Notes Filed: 07/11/2022 1:04 PM Note Text: ANESTHESIOLOGY PROCEDURE NOTE Airway General Information Procedure Start Time/Medication Administration: 07/11/2022 12:59 PM Patient location during procedure: OR Timeout Performed Pre-procedure: timeout performed Consent Obtained: Yes Patient identity confirmed: arm band Staffing AIR TRAFFIC CONTROL OPERATOR: Ruiz Cruz APRN.AIR TRAFFIC CONTROL OPERATOR Performed by: JAY Indications and Patient Condition Indications for airway management: anesthesia Preoxygenated: yes anesthesia circuit Patient position: sniffing Method: asleep Cricoid Pressure: No Manual In-Line Stabilization: No Difficult Mask: No Final Airway Details Final airway type: supraglottic airway Number of attempts at approach: 1 Final Supraglottic Airway: i-gel Size 5 Seal Adequate: yes SIGNATURE: Ruiz Cruz APRN.AIR TRAFFIC CONTROL OPERATOR PATIENT NAME: Waldo Zee DATE: July 11, 2022 TIME: 1:04 PM CSN: [id number] [facility] 06-29-2022 Miscellaneous Notes Images from the original note were not included. Lázaro Avila MD Cc: Leonor Rodarte RN Patient called to cancel 08/18 surgery. He said he is going to [facility] since it is closer. Thanks! Melissa documented in this encounter [facility] 06-28-2022 Miscellaneous Notes Pt is scheduled for C&P, Rt ULL, possible Rt stent with Dr Gallegos at [facility] on 07/11/22 @ 1:55 (11:55 arrival). Urine culture ordered to be done 07/04. Pt given date, time, prep and arrival instructions over the phone. Crosswise message sent also. Mercedes GAGNON documented in this encounter [facility] 06-27-2022 Miscellaneous Notes Called and spoke with patient regarding a surgery date for Right URS. Offered first available, August [address] Allen. Patient upset he has to wait that long, but accepted appointment. He did advise he may seek care elsewhere given the wait time, informed him that while [facility] would like him to stay for care [...] 2022 12:12 PM documented in this encounter [facility] 06-27-2022 Miscellaneous Notes Patient was seen at [facility] ----- Message from Ann Emerson MD sent at 06/24/2022 3:52 AM EST ----- Pt in ED with kidney stone. Will need follow up please. documented in this encounter [facility] 06-26-2022 History of Present illness Narrative [facility] NEW PATIENT [...] 11 CREAT 0.87 GLUC 160* URINALYSIS: Specific Currie, Ur Date Value Ref Range Status 06/23/2022 [...] Date ABDOMINAL SURGERY HX CARDIAC CATH 10/24/2018 [facility] with stent placement COLON SURGERY HX COLONOSCOPY [...] ileostomy reversal PSA (EXTERNAL) 06/14/2015 normal (0.76) [facility] Social History Tobacco Use Smoking status: Former [...] Abdomen is Non-distended, soft, nontender. Musculoskeletal: Good interactive graphic designer strength. Neurologic: Normal gait. Sensation grossly intact. [...] 4 - Moderate documented in this encounter [facility] 06-26-2022 Miscellaneous Notes Patient calling stating that [...] Pharmacy number . documented in this encounter [facility] 06-24-2022 Miscellaneous Notes Pt needs scheduled for stone treatment ----- Message from Ann Emerson MD sent at 06/24/2022 3:52 AM EST ----- Pt in ED with kidney stone. Will need follow up please. documented in this encounter [facility] 06-23-2022 Miscellaneous Notes Patient notified. Please ask patient how he is feeling. His CT scan shows an right obstructing kidney stone which is an urgent matter as this can cause damage to kidneys if not resolved. As this is Sunday, it cannot wait until Sunday and he needs to go to the ER. Thank you Amada Muro APRN.ALANIS documented in this encounter [facility] 06-23-2022 History of Present illness Narrative Radiology [...] 2022 3:53 PM documented in this encounter [facility] 06-22-2022 History of Present illness Narrative Reason [...] Date ABDOMINAL SURGERY HX CARDIAC CATH 10/24/2018 [facility] with stent placement COLON SURGERY HX COLONOSCOPY [...] ileostomy reversal PSA (EXTERNAL) 06/14/2015 normal (0.76) [facility] FAMILY HISTORY Adopted: Yes Problem Relation Age [...] cholesterol is 3. 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 - ICD9: 414.01, [...] Bettye Powell MD documented in this encounter [facility] 06-22-2022 Miscellaneous Notes Patient already scheduled Patient has not been seen in 5 months. He really needs to have an appointment to see if blood work or other diagnostic is indicated outside of just a urine sample. Thank you Amada Muro APRN.C 13 CATAPULT OPERATOR Patient has been passing a kidney stone [...] give sample tomorrow. documented in this encounter [facility] 06-22-2022 Miscellaneous Notes PATIENT NOTIFIED OF SAME. Appointment scheduled 06/22/22. documented in this encounter [facility] 02-01-2022 Miscellaneous Notes Patient has been identified [...] Patricia Gan RN documented in this encounter [facility] 01-23-2022 Miscellaneous Notes Last OV: 01/20/22 Patient has been identified by name and date of : Yes Pending Prescriptions Disp Refills PANTOPRAZOLE 40 MG TABLET,DELAYED RELEASE 90 tablet 3 Sig: Take 1 tablet by mouth once daily. HANNA: No RX INSTRUCTIONS: Patient aware RX will be sent to pharmacy. No need to notify patient. Jackie Copeland LPN documented in this encounter [facility] 01-20-2022 History of Present illness Narrative Radiology [...] 2022 8:45 AM documented in this encounter [facility] 01-20-2022 Instructions Bettye Powell MD - 01/20/2022 8:36 AM EDT Likely post viral syndrome. Stagger tests, If chest xr is normal and singulair is not helping or cough worsening at anytime then do the lung volume documented in this encounter [facility] 01-20-2022 History of Present illness Narrative Reason [...] Date ABDOMINAL SURGERY HX CARDIAC CATH 10/24/2018 [facility] with stent placement COLON SURGERY HX COLONOSCOPY [...] ileostomy reversal PSA (EXTERNAL) 06/14/2015 normal (0.76) [facility] FAMILY HISTORY Adopted: Yes Problem Relation Age [...] Bettye Powell MD documented in this encounter [facility] 01-18-2022 Miscellaneous Notes appointment made for Sunday [...] scripts. Thank you. documented in this encounter [facility] 01-05-2022 History of Present illness Narrative This note was created using [employer]. Subjective Waldo Zee is a 61 year [...] Vitamin D Deficiency Coronary Artery Disease Involving [place] Coronary Artery of [place] Heart Without Angina Pectoris Fatty Liver Morbid [...] but he had taken this from our air cargo specialist supervisor in 2011. 2. Dysfunction of Eustachian tube, unspecified laterality - ICD9: 381.81, ICD10: H69.80 - PREDNISONE 20 MG TABLET 3. Type 2 diabetes mellitus without complication, without long-term current use of insulin (HCC) - ICD9: 250.00, ICD10: E11.9 Expect glucose elevation that is transient. Don Salgado MD documented in this encounter [facility] 12-30-2021 Miscellaneous Notes Patient has been identified [...] patient. Lina Li documented in this encounter [facility] 12-26-2021 Miscellaneous Notes Patient notified. Sending an order of flonase nasal spray for patient. This should help decrease his sinus tightness, drainage, and allergy symptoms. If this is not helpful, patient will need an appointment for further evaluation. Thank you Amada Muro APRN.C 13 CATAPULT OPERATOR Patient called in on 12/24/21 for cough [...] been working outside a lot. He reports [employer] has not been helping. He states that [...] sinuses make him feel dizzy. Requesting [facility] in [place]. Please advise patient. Thank you. documented in this encounter [facility] 12-24-2021 Miscellaneous Notes Patient call in for [...] nose running Protocols used: COUGH - ACUTE [id number] documented in this encounter [facility] 11-24-2021 Miscellaneous Notes Patient notified. Please ask [...] Muro APRN.CNP The 10-year ASCVD risk score ([place]angelica MCLAIN Jr., et al., 2013) is: 14.2% Values used to calculate the score: Age: 61 years Sex: Male Is Non- : No Diabetic: Yes Tobacco smoker: No Systolic Blood Pressure: 110 mmHg Is BP treated: No HDL Cholesterol: 39 mg/dL Total Cholesterol: 207 mg/dL documented in this encounter [facility] 06-26-2018 History of Past i llness Narrative Problem Noted Date Resolved Date Incisional hernia 06/26/2018 06/02/2020 Family history of colon cancer 05/15/2018 1 Overview: Added automatically from request for surgery [id number] Ventral hernia without obstruction or gangrene 0 04/17/2018 06/02/2020 Overview: Added automatically from request for surgery [id number] Attention to ileostomy 11/06/2017 8 Malnutrition of mild degree 11/06/201705/14 History of rectal cancer 11/05/2017 020 Hypotension 08/06/2017 08/06/[address] 08/06/2017 04/03/2018 Hypokalemia 08/06/2017 08/06/2017 Post-op pain 08/06/2017 06/02/2020 Annual physical exam 05/29/2017 06/02/2020 Overview: Added automatically from request for surgery [id number] Obesity (BMI 30.0-34.9) 07/28/2014 06/02/20 20 Last [...] of this encounter (statuses as of 11/24/2021) [facility] History of Past illness Narrative* Problem Noted Date Resolved Date Incisional hernia 06/26/2018 06/02/2020 Family history of colon cancer 05/15/2018 1 Overview: Added automatically from request for surgery [id number] Ventral hernia without obstruction or gangrene 0 04/17/2018 06/02/2020 Overview: Added automatically from request for surgery [id number] Attention to ileostomy 11/06/2017 8 Malnutrition of mild degree 11/06/201705/14 History of rectal cancer 11/05/2017 020 Hypotension 08/06/2017 08/06/[address] 08/06/2017 04/03/2018 Hypokalemia 08/06/2017 08/06/2017 Post-op pain 08/06/2017 06/02/2020 Annual physical exam 05/29/2017 06/02/2020 Overview: Added automatically from request for surgery [id number] Obesity (BMI 30.0-34.9) 07/28/2014 06/02/20 20 Last [...] of this encounter (statuses as of 12/12/2021) [facility] History of Past illness Narrative* Problem Noted Date Resolved Date Incisional hernia 06/26/2018 06/02/2020 Family history of colon cancer 05/15/2018 1 Overview: Added automatically from request for surgery [id number] Ventral hernia without obstruction or gangrene 0 04/17/2018 06/02/2020 Overview: Added automatically from request for surgery [id number] Attention to ileostomy 11/06/2017 8 Malnutrition of mild degree 11/06/201705/14 History of rectal cancer 11/05/2017 020 Hypotension 08/06/2017 08/06/[address] 08/06/2017 04/03/2018 Hypokalemia 08/06/2017 08/06/2017 Post-op pain 08/06/2017 06/02/2020 Annual physical exam 05/29/2017 06/02/2020 Overview: Added automatically from request for surgery [id number] Obesity (BMI 30.0-34.9) 07/28/2014 06/02/20 20 Last [...] of this encounter (statuses as of 12/24/2021) [facility] History of Past illness Narrative* Problem Noted Date Resolved Date Incisional hernia 06/26/2018 06/02/2020 Family history of colon cancer 05/15/2018 1 Overview: Added automatically from request for surgery [id number] Ventral hernia without obstruction or gangrene 0 04/17/2018 06/02/2020 Overview: Added automatically from request for surgery [id number] Attention to ileostomy 11/06/2017 8 Malnutrition of mild degree 11/06/201705/14 History of rectal cancer 11/05/2017 020 Hypotension 08/06/2017 08/06/[address] 08/06/2017 04/03/2018 Hypokalemia 08/06/2017 08/06/2017 Post-op pain 08/06/2017 06/02/2020 Annual physical exam 05/29/2017 06/02/2020 Overview: Added automatically from request for surgery [id number] Obesity (BMI 30.0-34.9) 07/28/2014 06/02/20 20 Last [...] of this encounter (statuses as of 12/26/2021) [facility] History of Past illness Narrative* Problem Noted Date Resolved Date Incisional hernia 06/26/2018 06/02/2020 Family history of colon cancer 05/15/2018 1 Overview: Added automatically from request for surgery [id number] Ventral hernia without obstruction or gangrene 0 04/17/2018 06/02/2020 Overview: Added automatically from request for surgery [id number] Attention to ileostomy 11/06/2017 8 Malnutrition of mild degree 11/06/201705/14 History of rectal cancer 11/05/2017 020 Hypotension 08/06/2017 08/06/[address] 08/06/2017 04/03/2018 Hypokalemia 08/06/2017 08/06/2017 Post-op pain 08/06/2017 06/02/2020 Annual physical exam 05/29/2017 06/02/2020 Overview: Added automatically from request for surgery [id number] Obesity (BMI 30.0-34.9) 07/28/2014 06/02/20 20 Last [...] of this encounter (statuses as of 01/01/2022) [facility] of Past [facility] Narrative* Problem Noted Date Resolved Date Incisional hernia 06/26/2018 06/02/2020 Family history of colon cancer 05/15/2018 1 Overview: Added automatically from request for surgery [id number] Ventral hernia without obstruction or gangrene 0 04/17/2018 06/02/2020 Overview: Added automatically from request for surgery [id number] Attention to ileostomy 11/06/2017 8 Malnutrition of mild degree 11/06/201705/14 History of rectal cancer 11/05/2017 020 Hypotension 08/06/2017 08/06/[address] 08/06/2017 04/03/2018 Hypokalemia 08/06/2017 08/06/2017 Post-op pain 08/06/2017 06/02/2020 Annual physical exam 05/29/2017 06/02/2020 Overview: Added automatically from request for surgery [id number] Obesity (BMI 30.0-34.9) 07/28/2014 06/02/20 20 Last [...] of this encounter (statuses as of 01/05/2022) [facility] of Past [facility] Narrative* Problem Noted Date Resolved Date Incisional hernia 06/26/2018 06/02/2020 Family history of colon cancer 05/15/2018 1 Overview: Added automatically from request for surgery [id number] Ventral hernia without obstruction or gangrene 0 04/17/2018 06/02/2020 Overview: Added automatically from request for surgery [id number] Attention to ileostomy 11/06/2017 8 Malnutrition of mild degree 11/06/201705/14 History of rectal cancer 11/05/2017 020 Hypotension 08/06/2017 08/06/[address] 08/06/2017 04/03/2018 Hypokalemia 08/06/2017 08/06/2017 Post-op pain 08/06/2017 06/02/2020 Annual physical exam 05/29/2017 06/02/2020 Overview: Added automatically from request for surgery [id number] Obesity (BMI 30.0-34.9) 07/28/2014 06/02/20 20 Last [...] of this encounter (statuses as of 01/18/2022) [facility] of Past [facility] Narrative* Problem Noted Date Resolved Date Incisional hernia 06/26/2018 06/02/2020 Family history of colon cancer 05/15/2018 1 Overview: Added automatically from request for surgery [id number] Ventral hernia without obstruction or gangrene 0 04/17/2018 06/02/2020 Overview: Added automatically from request for surgery [id number] Attention to ileostomy 11/06/2017 8 Malnutrition of mild degree 11/06/201705/14 History of rectal cancer 11/05/2017 020 Hypotension 08/06/2017 08/06/[address] 08/06/2017 04/03/2018 Hypokalemia 08/06/2017 08/06/2017 Post-op pain 08/06/2017 06/02/2020 Annual physical exam 05/29/2017 06/02/2020 Overview: Added automatically from request for surgery [id number] Obesity (BMI 30.0-34.9) 07/28/2014 06/02/20 20 Last [...] of this encounter (statuses as of 01/20/2022) [facility] of Past [facility] Narrative* Problem Noted Date Resolved Date Incisional hernia 06/26/2018 06/02/2020 Family history of colon cancer 05/15/2018 1 Overview: Added automatically from request for surgery [id number] Ventral hernia without obstruction or gangrene 0 04/17/2018 06/02/2020 Overview: Added automatically from request for surgery [id number] Attention to ileostomy 11/06/2017 8 Malnutrition of mild degree 11/06/201705/14 History of rectal cancer 11/05/2017 020 Hypotension 08/06/2017 08/06/[address] 08/06/2017 04/03/2018 Hypokalemia 08/06/2017 08/06/2017 Post-op pain 08/06/2017 06/02/2020 Annual physical exam 05/29/2017 06/02/2020 Overview: Added automatically from request for surgery [id number] Obesity (BMI 30.0-34.9) 07/28/2014 06/02/20 20 Last [...] of this encounter (statuses as of 01/23/2022) [facility] of [facility] Narrative* Problem Noted Date Resolved Date Incisional hernia 06/26/2018 06/02/2020 Family history of colon cancer 05/15/2018 1 Overview: Added automatically from request for surgery [id number] Ventral hernia without obstruction or gangrene 0 04/17/2018 06/02/2020 Overview: Added automatically from request for surgery [id number] Attention to ileostomy 11/06/2017 8 Malnutrition of mild degree 11/06/201705/14 History of rectal cancer 11/05/2017 020 Hypotension 08/06/2017 08/06/[address] 08/06/2017 04/03/2018 Hypokalemia 08/06/2017 08/06/2017 Post-op pain 08/06/2017 06/02/2020 Annual physical exam 05/29/2017 06/02/2020 Overview: Added automatically from request for surgery [id number] Obesity (BMI 30.0-34.9) 07/28/2014 06/02/20 20 Last [...] of this encounter (statuses as of 02/02/2022) [facility] of [facility] Narrative* Problem Noted Date Resolved Date Incisional hernia 06/26/2018 06/02/2020 Family history of colon cancer 05/15/2018 1 Overview: Added automatically from request for surgery [id number] Ventral hernia without obstruction or gangrene 0 04/17/2018 06/02/2020 Overview: Added automatically from request for surgery [id number] Attention to ileostomy 11/06/2017 8 Malnutrition of mild degree 11/06/201705/14 History of rectal cancer 11/05/2017 020 Hypotension 08/06/2017 08/06/[address] 08/06/2017 04/03/2018 Hypokalemia 08/06/2017 08/06/2017 Post-op pain 08/06/2017 06/02/2020 Annual physical exam 05/29/2017 06/02/2020 Overview: Added automatically from request for surgery [id number] Obesity (BMI 30.0-34.9) 07/28/2014 06/02/20 20 Last [...] of this encounter (statuses as of 06/22/2022) [facility] History of Past illness Narrative* Problem Noted Date Resolved Date Incisional hernia 06/26/2018 06/02/2020 Family history of colon cancer 05/15/2018 1 Overview: Added automatically from request for surgery [id number] Ventral hernia without obstruction or gangrene 0 04/17/2018 06/02/2020 Overview: Added automatically from request for surgery [id number] Attention to ileostomy 11/06/2017 8 Malnutrition of mild degree 11/06/201705/14 History of rectal cancer 11/05/2017 020 Hypotension 08/06/2017 08/06/[address] 08/06/2017 04/03/2018 Hypokalemia 08/06/2017 08/06/2017 Post-op pain 08/06/2017 06/02/2020 Annual physical exam 05/29/2017 06/02/2020 Overview: Added automatically from request for surgery [id number] Obesity (BMI 30.0-34.9) 07/28/2014 06/02/20 20 Last [...] of this encounter (statuses as of 06/22/2022) [facility] History of Past illness Narrative* Problem Noted Date Resolved Date Incisional hernia 06/26/2018 06/02/2020 Family history of colon cancer 05/15/2018 1 Overview: Added automatically from request for surgery [id number] Ventral hernia without obstruction or gangrene 0 04/17/2018 06/02/2020 Overview: Added automatically from request for surgery [id number] Attention to ileostomy 11/06/2017 8 Malnutrition of mild degree 11/06/201705/14 History of rectal cancer 11/05/2017 020 Hypotension 08/06/2017 08/06/[address] 08/06/2017 04/03/2018 Hypokalemia 08/06/2017 08/06/2017 Post-op pain 08/06/2017 06/02/2020 Annual physical exam 05/29/2017 06/02/2020 Overview: Added automatically from request for surgery [id number] Obesity (BMI 30.0-34.9) 07/28/2014 06/02/20 20 Last [...] of this encounter (statuses as of 06/22/2022) [facility] History of Past illness Narrative* Problem Noted Date Resolved Date Incisional hernia 06/26/2018 06/02/2020 Family history of colon cancer 05/15/2018 1 Overview: Added automatically from request for surgery [id number] Ventral hernia without obstruction or gangrene 0 04/17/2018 06/02/2020 Overview: Added automatically from request for surgery [id number] Attention to ileostomy 11/06/2017 8 Malnutrition of mild degree 11/06/201705/14 History of rectal cancer 11/05/2017 020 Hypotension 08/06/2017 08/06/[address] 08/06/2017 04/03/2018 Hypokalemia 08/06/2017 08/06/2017 Post-op pain 08/06/2017 06/02/2020 Annual physical exam 05/29/2017 06/02/2020 Overview: Added automatically from request for surgery [id number] Obesity (BMI 30.0-34.9) 07/28/2014 06/02/20 20 Last [...] of this encounter (statuses as of 06/23/2022) [facility] History of Past illness Narrative* Problem Noted Date Resolved Date Incisional hernia 06/26/2018 06/02/2020 Family history of colon cancer 05/15/2018 1 Overview: Added automatically from request for surgery [id number] Ventral hernia without obstruction or gangrene 0 04/17/2018 06/02/2020 Overview: Added automatically from request for surgery [id number] Attention to ileostomy 11/06/2017 8 Malnutrition of mild degree 11/06/201705/14 History of rectal cancer 11/05/2017 020 Hypotension 08/06/2017 08/06/[address] 08/06/2017 04/03/2018 Hypokalemia 08/06/2017 08/06/2017 Post-op pain 08/06/2017 06/02/2020 Annual physical exam 05/29/2017 06/02/2020 Overview: Added automatically from request for surgery [id number] Obesity (BMI 30.0-34.9) 07/28/2014 06/02/20 Last Assessment [...] of this encounter (statuses as of 06/24/2022) [facility] History of Past illness Narrative* Problem Noted Date Resolved Date Incisional hernia 06/26/2018 06/02/2020 Family history of colon cancer 05/15/2018 1 Overview: Added automatically from request for surgery [id number] Ventral hernia without obstruction or gangrene 0 04/17/2018 06/02/2020 Overview: Added automatically from request for surgery [id number] Attention to ileostomy 11/06/2017 8 Malnutrition of mild degree 11/06/201705/14 History of rectal cancer 11/05/2017 020 Hypotension 08/06/2017 08/06/[address] 08/06/2017 04/03/2018 Hypokalemia 08/06/2017 08/06/2017 Post-op pain 08/06/2017 06/02/2020 Annual physical exam 05/29/2017 06/02/2020 Overview: Added automatically from request for surgery [id number] Obesity (BMI 30.0-34.9) 07/28/2014 06/02/20 Last Assessment [...] of this encounter (statuses as of 06/26/2022) [facility] History of Past illness Narrative* Problem Noted Date Resolved Date Incisional hernia 06/26/2018 06/02/2020 Family history of colon cancer 05/15/2018 1 Overview: Added automatically from request for surgery [id number] Ventral hernia without obstruction or gangrene 0 04/17/2018 06/02/2020 Overview: Added automatically from request for surgery [id number] Attention to ileostomy 11/06/2017 8 Malnutrition of mild degree 11/06/201705/14 History of rectal cancer 11/05/2017 020 Hypotension 08/06/2017 08/06/[address] 08/06/2017 04/03/2018 Hypokalemia 08/06/2017 08/06/2017 Post-op pain 08/06/2017 06/02/2020 Annual physical exam 05/29/2017 06/02/2020 Overview: Added automatically from request for surgery [id number] Obesity (BMI 30.0-34.9) 07/28/2014 06/02/20 Last Assessment [...] of this encounter (statuses as of 06/27/2022) [facility] History of Past illness Narrative* Problem Noted Date Resolved Date Incisional hernia 06/26/2018 06/02/2020 Family history of colon cancer 05/15/2018 1 Overview: Added automatically from request for surgery [id number] Ventral hernia without obstruction or gangrene 0 04/17/2018 06/02/2020 Overview: Added automatically from request for surgery [id number] Attention to ileostomy 11/06/2017 8 Malnutrition of mild degree 11/06/201705/14 History of rectal cancer 11/05/2017 020 Hypotension 08/06/2017 08/06/[address] 08/06/2017 04/03/2018 Hypokalemia 08/06/2017 08/06/2017 Post-op pain 08/06/2017 06/02/2020 Annual physical exam 05/29/2017 06/02/2020 Overview: Added automatically from request for surgery [id number] Obesity (BMI 30.0-34.9) 07/28/2014 06/02/20 Last Assessment & Plan: He does the tread mill for 5. Elxy then the weights for 5 and repeats [...] of this encounter (statuses as of 06/27/2022) [facility] History of Past illness Narrative* Problem Noted Date Resolved Date Incisional hernia 06/26/2018 06/02/2020 Family history of colon cancer 05/15/2018 1 Overview: Added automatically from request for surgery [id number] Ventral hernia without obstruction or gangrene 0 04/17/2018 06/02/2020 Overview: Added automatically from request for surgery [id number] Attention to ileostomy 11/06/2017 8 Malnutrition of mild degree 11/06/201705/14 History of rectal cancer 11/05/2017 020 Hypotension 08/06/2017 08/06/[address] 08/06/2017 04/03/2018 Hypokalemia 08/06/2017 08/06/2017 Post-op pain 08/06/2017 06/02/2020 Annual physical exam 05/29/2017 06/02/2020 Overview: Added automatically from request for surgery [id number] Obesity (BMI 30.0-34.9) 07/28/2014 06/02/20 Last Assessment [...] of this encounter (statuses as of 06/28/2022) [facility] History of Past illness Narrative* Problem Noted Date Resolved Date Incisional hernia 06/26/2018 06/02/2020 Family history of colon cancer 05/15/2018 1 Overview: Added automatically from request for surgery [id number] Ventral hernia without obstruction or gangrene 0 04/17/2018 06/02/2020 Overview: Added automatically from request for surgery [id number] Attention to ileostomy 11/06/2017 8 Malnutrition of mild degree 11/06/201705/14 History of rectal cancer 11/05/2017 020 Hypotension 08/06/2017 08/06/[address] 08/06/2017 04/03/2018 Hypokalemia 08/06/2017 08/06/2017 Post-op pain 08/06/2017 06/02/2020 Annual physical exam 05/29/2017 06/02/2020 Overview: Added automatically from request for surgery [id number] Obesity (BMI 30.0-34.9) 07/28/2014 06/02/20 Last Assessment [...] of this encounter (statuses as of 06/29/2022) [facility] History of Past illness Narrative* Problem Noted Date Resolved Date Incisional hernia 06/26/2018 06/02/2020 Family history of colon cancer 05/15/2018 1 Overview: Added automatically from request for surgery [id number] Ventral hernia without obstruction or gangrene 0 04/17/2018 06/02/2020 Overview: Added automatically from request for surgery [id number] Attention to ileostomy 11/06/2017 8 Malnutrition of mild degree 11/06/201705/14 History of rectal cancer 11/05/2017 020 Hypotension 08/06/2017 08/06/[address] 08/06/2017 04/03/2018 Hypokalemia 08/06/2017 08/06/2017 Post-op pain 08/06/2017 06/02/2020 Annual physical exam 05/29/2017 06/02/2020 Overview: Added automatically from request for surgery [id number] Obesity (BMI 30.0-34.9) 07/28/2014 06/02/20 Last Assessment [...] of this encounter (statuses as of 07/12/2022) [facility] History of Past illness Narrative* Problem Noted Date Resolved Date Incisional hernia 06/26/2018 06/02/2020 Family history of colon cancer 05/15/2018 1 Overview: Added automatically from request for surgery [id number] Ventral hernia without obstruction or gangrene 0 04/17/2018 06/02/2020 Overview: Added automatically from request for surgery [id number] Attention to ileostomy 11/06/2017 8 Malnutrition of mild degree 11/06/201705/14 History of rectal cancer 11/05/2017 020 Hypotension 08/06/2017 08/06/[address] 08/06/2017 04/03/2018 Hypokalemia 08/06/2017 08/06/2017 Post-op pain 08/06/2017 06/02/2020 Annual physical exam 05/29/2017 06/02/2020 Overview: Added automatically from request for surgery [id number] Obesity (BMI 30.0-34.9) 07/28/2014 06/02/20 Last Assessment [...] of this encounter (statuses as of 07/13/2022) [facility] History of Past illness Narrative* Problem Noted Date Resolved Date Incisional hernia 06/26/2018 06/02/2020 Family history of colon cancer 05/15/2018 1 Overview: Added automatically from request for surgery [id number] Ventral hernia without obstruction or gangrene 0 04/17/2018 06/02/2020 Overview: Added automatically from request for surgery [id number] Attention to ileostomy 11/06/2017 8 Malnutrition of mild degree 11/06/201705/14 History of rectal cancer 11/05/2017 020 Hypotension 08/06/2017 08/06/[address] 08/06/2017 04/03/2018 Hypokalemia 08/06/2017 08/06/2017 Post-op pain 08/06/2017 06/02/2020 Annual physical exam 05/29/2017 06/02/2020 Overview: Added automatically from request for surgery [id number] Obesity (BMI 30.0-34.9) 07/28/2014 06/02/20 20 Last [...] of this encounter (statuses as of 08/22/2022) [facility] History of Past illness Narrative* Problem Noted Date Resolved Date Incisional hernia 06/26/2018 06/02/2020 Family history of colon cancer 05/15/2018 1 Overview: Added automatically from request for surgery [id number] Ventral hernia without obstruction or gangrene 0 04/17/2018 06/02/2020 Overview: Added automatically from request for surgery [id number] Attention to ileostomy 11/06/2017 8 Malnutrition of mild degree 11/06/201705/14 History of rectal cancer 11/05/2017 020 Hypotension 08/06/2017 08/06/[address] 08/06/2017 04/03/2018 Hypokalemia 08/06/2017 08/06/2017 Post-op pain 08/06/2017 06/02/2020 Annual physical exam 05/29/2017 06/02/2020 Overview: Added automatically from request for surgery [id number] Obesity (BMI 30.0-34.9) 07/28/2014 06/02/20 20 Last [...] of this encounter (statuses as of 12/13/2022) [facility] History of Past illness Narrative* Problem Noted Date Resolved Date Incisional hernia 06/26/2018 06/02/2020 Family history of colon cancer 05/15/2018 1 Overview: Added automatically from request for surgery [id number] Ventral hernia without obstruction or gangrene 0 04/17/2018 06/02/2020 Overview: Added automatically from request for surgery [id number] Attention to ileostomy 11/06/2017 8 Malnutrition of mild degree 11/06/201705/14 History of rectal cancer 11/05/2017 020 Hypotension 08/06/2017 08/06/[address] 08/06/2017 04/03/2018 Hypokalemia 08/06/2017 08/06/2017 Post-op pain 08/06/2017 06/02/2020 Annual physical exam 05/29/2017 06/02/2020 Overview: Added automatically from request for surgery [id number] Obesity (BMI 30.0-34.9) 07/28/2014 06/02/20 20 Last [...] of this encounter (statuses as of 12/15/2022) [facility] History of Past illness Narrative* Problem Noted Date Resolved Date Incisional hernia 06/26/2018 06/02/2020 Family history of colon cancer 05/15/2018 1 Overview: Added automatically from request for surgery [id number] Ventral hernia without obstruction or gangrene 0 04/17/2018 06/02/2020 Overview: Added automatically from request for surgery [id number] Attention to ileostomy 11/06/2017 8 Malnutrition of mild degree 11/06/201705/14 History of rectal cancer 11/05/2017 020 Hypotension 08/06/2017 08/06/[address] 08/06/2017 04/03/2018 Hypokalemia 08/06/2017 08/06/2017 Post-op pain 08/06/2017 06/02/2020 Annual physical exam 05/29/2017 06/02/2020 Overview: Added automatically from request for surgery [id number] Obesity (BMI 30.0-34.9) 07/28/2014 06/02/20 20 Last [...] of this encounter (statuses as of 01/16/2023) [facility] History of Past illness Narrative* Problem Noted Date Diagnosed Date Resolved Date Incisional hernia 06/26/2018 06/02/2020 Family history of colon cancer 05/15/2018 06/02/2020 Overview: Added automatically from request for surgery [id number] Ventral hernia without obstr uction or gangrene 04/17/2018 06/02/2020 Overview: Added automatically from request for surgery [id number] Attention to ileostomy 11/06/201704/03 Malnutrition of mild degree 11/06/2017 06/02/2020 History of rectal cancer 11/05/2017 Hypotension 08/06/2017 08/06/[address] 08/06/2017 8 Hypokalemia 08/06/2017 08/06/2017 Post-op pain 08/06/2017 06/02/2020 Annual physical exam 05/29/2017 020 Overview: Added automatically from request for surgery [id number] Obesity (BMI 30.0-34.9) 07/28/201405/14 Last Assessment & [...] of this encounter (statuses as of 05/05/2023) [facility] History of Past illness Narrative* Problem Noted Date Diagnosed Date Resolved Date Incisional hernia 06/26/2018 06/02/2020 Family history of colon cancer 05/15/2018 06/02/2020 Overview: Added automatically from request for surgery [id number] Ventral hernia without obstr uction or gangrene 04/17/2018 06/02/2020 Overview: Added automatically from request for surgery [id number] Attention to ileostomy 11/06/201704/03 Malnutrition of mild degree 11/06/2017 06/02/2020 History of rectal cancer 11/05/2017 Hypotension 08/06/2017 08/06/[address] 08/06/2017 8 Hypokalemia 08/06/2017 08/06/2017 Post-op pain 08/06/2017 06/02/2020 Annual physical exam 05/29/2017 020 Overview: Added automatically from request for surgery [id number] Obesity (BMI 30.0-34.9) 07/28/201405/14 Last Assessment & [...] of this encounter (statuses as of 05/29/2023) [facility] History of Past illness Narrative* Problem Noted Date Diagnosed Date Resolved Date Incisional hernia 06/26/2018 06/02/2020 Family history of colon cancer 05/15/2018 06/02/2020 Overview: Added automatically from request for surgery [id number] Ventral hernia without obstr uction or gangrene 04/17/2018 06/02/2020 Overview: Added automatically from request for surgery [id number] Attention to ileostomy 11/06/201704/03 Malnutrition of mild degree 11/06/2017 06/02/2020 History of rectal cancer 11/05/2017 Hypotension 08/06/2017 08/06/[address] 08/06/2017 8 Hypokalemia 08/06/2017 08/06/2017 Post-op pain 08/06/2017 06/02/2020 Annual physical exam 05/29/2017 020 Overview: Added automatically from request for surgery [id number] Obesity (BMI 30.0-34.9) 07/28/201405/14 Last Assessment & [...] of this encounter (statuses as of 06/01/2023) [facility] History of Past illness Narrative* Problem Noted Date Diagnosed Date Resolved Date Incisional hernia 06/26/2018 06/02/2020 Family history of colon cancer 05/15/2018 06/02/2020 Overview: Added automatically from request for surgery [id number] Ventral hernia without obstr uction or gangrene 04/17/2018 06/02/2020 Overview: Added automatically from request for surgery [id number] Attention to ileostomy 11/06/201704/03 Malnutrition of mild degree 11/06/2017 06/02/2020 History of rectal cancer 11/05/2017 Hypotension 08/06/2017 08/06/[address] 08/06/2017 8 Hypokalemia 08/06/2017 08/06/2017 Post-op pain 08/06/2017 06/02/2020 Annual physical exam 05/29/2017 020 Overview: Added automatically from request for surgery [id number] Obesity (BMI 30.0-34.9) 07/28/201405/14 Last Assessment & [...] of this encounter (statuses as of 06/17/2023) [facility] History of Past illness Narrative* Problem Noted Date Diagnosed Date Resolved Date Incisional hernia 06/26/2018 06/02/2020 Family history of colon cancer 05/15/2018 06/02/2020 Overview: Added automatically from request for surgery [id number] Ventral hernia without obstr uction or gangrene 04/17/2018 06/02/2020 Overview: Added automatically from request for surgery [id number] Attention to ileostomy 11/06/201704/03 Malnutrition of mild degree 11/06/2017 06/02/2020 History of rectal cancer 11/05/2017 Hypotension 08/06/2017 08/06/[address] 08/06/2017 8 Hypokalemia 08/06/2017 08/06/2017 Post-op pain 08/06/2017 06/02/2020 Annual physical exam 05/29/2017 020 Overview: Added automatically from request for surgery [id number] Obesity (BMI 30.0-34.9) 07/28/201405/14 Last Assessment & Plan: He does the tread mill for 5. Elxy then the weights for 5 and repeats [...] of this encounter (statuses as of 06/21/2023) [facility] History of Past illness Narrative* Problem Noted Date Diagnosed Date Resolved Date Incisional hernia 06/26/2018 06/02/2020 Family history of colon cancer 05/15/2018 06/02/2020 Overview: Added automatically from request for surgery [id number] Ventral hernia without obstr uction or gangrene 04/17/2018 06/02/2020 Overview: Added automatically from request for surgery [id number] Attention to ileostomy 11/06/201704/03 Malnutrition of mild degree 11/06/2017 06/02/2020 History of rectal cancer 11/05/2017 Hypotension 08/06/2017 08/06/[address] 08/06/2017 8 Hypokalemia 08/06/2017 08/06/2017 Post-op pain 08/06/2017 06/02/2020 Annual physical exam 05/29/2017 020 Overview: Added automatically from request for surgery [id number] Obesity (BMI 30.0-34.9) 07/28/201405/14 Last Assessment & [...] of this encounter (statuses as of 06/27/2023) [facility] History of Past illness Narrative* Problem Noted Date Diagnosed Date Resolved Date Incisional hernia 06/26/2018 06/02/2020 Family history of colon cancer 05/15/2018 06/02/2020 Overview: Added automatically from request for surgery [id number] Ventral hernia without obstr uction or gangrene 04/17/2018 06/02/2020 Overview: Added automatically from request for surgery [id number] Attention to ileostomy 11/06/201704/03 Malnutrition of mild degree 11/06/2017 06/02/2020 Hypotension 08/06/2017 08/06/[address] 08/06/2017 8 Hypokalemia 08/06/2017 08/06/2017 Post-op pain 08/06/2017 06/02/2020 Annual physical exam 05/29/2017 020 Overview: Added automatically from request for surgery [id number] Obesity (BMI 30.0-34.9) 07/28/201405/14 Last Assessment & [...] of this encounter (statuses as of 09/18/2023) [facility] History of Past illness Narrative* Problem Noted Date Diagnosed Date Resolved Date Incisional hernia 06/26/2018 06/02/2020 Family history of colon cancer 05/15/2018 06/02/2020 Overview: Added automatically from request for surgery [id number] Ventral hernia without obstr uction or gangrene 04/17/2018 06/02/2020 Overview: Added automatically from request for surgery [id number] Attention to ileostomy 11/06/201704/03 Malnutrition of mild degree 11/06/2017 06/02/2020 Hypotension 08/06/2017 08/06/[address] 08/06/2017 8 Hypokalemia 08/06/2017 08/06/2017 Post-op pain 08/06/2017 06/02/2020 Annual physical exam 05/29/2017 020 Overview: Added automatically from request for surgery [id number] Obesity (BMI 30.0-34.9) 07/28/201405/14 Last Assessment & [...] of this encounter (statuses as of 10/02/2023) [facility] of Past illness Narrative* Problem Noted Date Diagnosed Date Resolved Date Incisional hernia 06/26/2018 06/02/2020 Family history of colon cancer 05/15/2018 06/02/2020 Overview: Added automatically from request for surgery [id number] Ventral hernia without obstr uction or gangrene 04/17/2018 06/02/2020 Overview: Added automatically from request for surgery [id number] Attention to ileostomy 11/06/201704/03 Malnutrition of mild degree 11/06/2017 06/02/2020 Hypotension 08/06/2017 08/06/[address] 08/06/2017 8 Hypokalemia 08/06/2017 08/06/2017 Post-op pain 08/06/2017 06/02/2020 Annual physical exam 05/29/2017 020 Overview: Added automatically from request for surgery [id number] Obesity (BMI 30.0-34.9) 07/28/201405/14 Last Assessment & [...] of this encounter (statuses as of 10/02/2023) [facility] History of Past illness Narrative* Problem Noted Date Diagnosed Date Resolved Date Incisional hernia 06/26/2018 06/02/2020 Family history of colon cancer 05/15/2018 06/02/2020 Overview: Added automatically from request for surgery [id number] Ventral hernia without obstr uction or gangrene 04/17/2018 06/02/2020 Overview: Added automatically from request for surgery [id number] Attention to ileostomy 11/06/201704/03 Malnutrition of mild degree 11/06/2017 06/02/2020 Hypotension 08/06/2017 08/06/[address] 08/06/2017 8 Hypokalemia 08/06/2017 08/06/2017 Post-op pain 08/06/2017 06/02/2020 Annual physical exam 05/29/2017 020 Overview: Added automatically from request for surgery [id number] Obesity (BMI 30.0-34.9) 07/28/201405/14 Last Assessment & [...] of this encounter (statuses as of 10/02/2023) [facility] History of Past illness Narrative* Problem Noted Date Diagnosed Date Resolved Date Incisional hernia 06/26/2018 06/02/2020 Family history of colon cancer 05/15/2018 06/02/2020 Overview: Added automatically from request for surgery [id number] Ventral hernia without obstr uction or gangrene 04/17/2018 06/02/2020 Overview: Added automatically from request for surgery [id number] Attention to ileostomy 11/06/201704/03 Malnutrition of mild degree 11/06/2017 06/02/2020 Hypotension 08/06/2017 08/06/[address] 08/06/2017 8 Hypokalemia 08/06/2017 08/06/2017 Post-op pain 08/06/2017 06/02/2020 Annual physical exam 05/29/2017 020 Overview: Added automatically from request for surgery [id number] Obesity (BMI 30.0-34.9) 07/28/201405/14 Last Assessment & [...] of this encounter (status[facility] as of 11/27/2023) [facility] ears- Primary Otalgia, unspecified Dysfunction of Eustachian tube, unspecified laterality Type 2 diabetes mellitus without complication, without long-term current use of insulin (HCC) [facility] Cough- Primary Bronchitis Bronchitis, not specified as acute or chronic [facility] Gross hematuria- Primary Mixed hyperlipidemia 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 Calculus of other lower urinary tract location Type 2 diabetes mellitus without complication, without long-term current use of insulin (HCC) Chronic bilateral back pain, unspecified back location [facility] Diagnosis Kidney stones- Primary Calculus of kidney Ureteric stone Calculus of ureter [facility] Diagnosis Nephrolithiasis- Primary Calculus of kidney Nephrolithiasis Calculus of kidney [facility] Diagnosis Kidney stones- Primary Calculus of kidney [facility] Diagnosis Hypothyroidism, unspecified type [facility] Diagnosis Acute bilateral low back pain without sciatica- Primary Type 2 diabetes mellitus without complication, without long-term current use of insulin (HCC) 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 Mixed hyperlipidemia [facility] encounter [facility]* Diagnosis Type 2 diabetes mellitus without complication, without long-term current use of insulin (HCC)- Primary Burning sensation of feet Disturbance of skin sensation Primary hypertension Unspecified essential hypertension 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 Mixed hyperlipidemia [facility] Diagnosis Burning sensation of feet- Primary Disturbance of skin sensation Bilateral foot pain Pain in limb [facility]* Diagnosis Gross hematuria Calculus of other lower urinary tract location [facility] this [facility]* Diagnosis Need for vaccination- Primary Need for prophylactic vaccination and inoculation against unspecified single disease [facility]* Diagnosis Gross hematuria- Primary History of kidney stones Personal history of urinary calculi [facility] Diagnosis Gross hematuria [facility]* Diagnosis Kidney stones- Primary Calculus of kidney Abnormal urinalysis Other nonspecific finding on examination of urine documented [facility]* Diagnosis Hypothyroidism, unspecified type History of kidney stones Personal history of urinary calculi Vitamin D deficiency Unspecified vitamin D deficiency documented [facility]* Diagnosis Medication management Encounter for long-term (current) use of other medications Type 2 diabetes mellitus without complication, without long-term current use of insulin (HCC) documented [facility] encounter [facility]* Diagnosis Annual physical exam- Primary Routine [...] Other seborrheic keratosis [facility] Diagnosis Pain of left calf- Primary Pain in limb Edema of left lower extremity Edema documented in this encounter [facility] note* Diagnosis Diabetes (HCC)- Primary Type [...] Obesity, unspecified Cough documented in this encounter [facility] note* Diagnosis Diabetes (HCC)- Primary Type [...] vitamin D deficiency documented in this encounter [facility] note* Diagnosis Diabetes (HCC)- Primary Type [...] insulin (HCC)- Primary 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 BMI 39.0-39.9,adult Body Mass Index 39.0-39.9, adult Vitamin B12 deficiency Other B-complex deficiencies [facility] Diagnosis Diabetes (HCC)- Primary Type II [...] vitamin D deficiency documented in this encounter [facility] for referral (narrative)* Outpatient Procedure (Routine) - Pending Review Specialty Diagnoses / Procedures Referred By Yao hudson Referred To [facility] Diagnoses Cough Bronchitis Procedures METHACHOLINE CHALLENGE INHLJ BRNCL CHALLENGE TSTG W/HISTAM/METHACHOL Bettye Powell MD [address] [place] [address] [address] Referral ID Status Reason Start Date Expiration Date Visits Requested Visits Authorized [id number] Pending Review Auto-Generat ed Referral 01/20/2022 02/19/2023 1 1 * Outpatient Procedure (Routine) - Pending Review Specialty Diagnoses / Procedures Referred By Contac t Referred To [facility] Diagnoses Cough Procedures SPIROMETRY - BASELINE AND POST DILATOR BRNCDILAT RSPSE SPMTRY PRE&POST-BRNCDILAT ADMN Bettye Powell MD [address] [place] [address] [address] Referral ID Status Reason Start Date Expiration Date Visits Requested Visits Authorized [id number] Pending Review Auto-Generat ed Referral 01/20/2022 02/19/2023 1 1 * Outpatient Procedure (Routine) - Pending Review Specialty Diagnoses / Procedures Referred By Contac t Referred To [facility] Diagnoses Cough Procedures LUNG VOLUMES Bettye Powell MD [address] [place] [address] [address] Referral ID Status Reason Start Date Expiration Date Visits Requested Visits Authorized [id number] Pending Review Auto-Generat ed Referral 01/20/2022 02/19/2023 1 1 [facility] for referral (narrative)* Outpatient Procedure (Urgent) - Closed Specialty Diagnoses / Procedures Referred By Contac t Referred To [facility] Diagnoses Pain of left calf Edema of left lower extremity Procedures US LEG VEIN DVT UNL VAS LAB DUP-SCAN XTR VEINS UNILATERAL/LIMITED STUDY Dewey, Lizeth M, HANNY.C 13 CATAPULT OPERATOR [address] [place] [address] [facility] [place] [address] [place] [address] Referral ID Status Reason Start Date Expiration Date V isits Requested Visits Authorized [id number] Closed Auto-Generate d Referral 03/19/2024 03/19/2025 1 1 [facility] Advance Directives Documents on File Type Date Recorded Patient 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 Expl anation Advance Directive(s) 07/02/2020 7:49 AM Advance Directive(s) 06/24/2020 3:27 PM Advance Directive(s) 06/26/2019 6:46 AM Advance Directive(s) 06/24/2018 1:40 PM Advance Directive(s) 05/29/2018 7:31 AM Advance Directive(s) 10/26/2017 1:16 PM Advance Directive(s) 07/25/2017 9:49 AM Advance Directive(s) 07/23/2017 2:35 PM Advance Directive(s) 07/20/2017 2:40 PM Advance Directive(s) 06/13/2017 9:02 AM Documents on File Type Date Recorded Patient 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 Expl 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 Advance Directive(s) 07/02/2020 7:49 AM Advance Directive(s) 06/24/2020 3:27 PM Advance Directive(s) 06/26/2019 6:46 AM Advance Directive(s) 06/24/2018 1:40 PM Advance Directive(s) 05/29/2018 7:31 AM Advance Directive(s) 10/26/2017 1:16 PM Advance Directive(s) 07/25/2017 9:49 AM Advance Directive(s) 07/23/2017 2:35 PM Advance Directive(s) 07/20/2017 2:40 PM Advance Directive(s) 06/13/2017 9:02 AM Documents on File Type Date Recorded Patient 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 Expl anation Advance Directive(s) 07/25/2017 9:49 AM Documents on File Type Date Recorded Patient 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 Expl anation Advance Directive(s) 07/25/2017 9:49 AM Reason for Referral Specialty Diagnoses / Procedures Referred By Yao t Referred To Contact CT IMAGING Diagnoses Gross hematuria Calculus of other lower urinary tract location Procedures CT FLANK WO IVCON CT ABD & PELVIS W/O CONTRAST Bettye Powell MD [facility] [place] [address] Ct Imaging Referral ID Status Reason Start Date Expiration Date Visits Requested Visits Authorized [id number] Pending Review Auto-Generat ed Referral 2 07/22/2023 1 1 Specialty Diagnoses / Procedures Referred By Contac t Referred To Contact Urology Diagnoses Gross hematuria Calculus of other lower urinary tract location Procedures CONSULT TO UROLOGY OFFICE/OUTPATIENT [facility] 60-74 MINUTES Bettye Powell MD [address] [place] [address] Referral ID Status Reason Start Date Expiration Date Visits Requested Visits Authorized [id number] Authorized PCP Requested Referral 2 06/22/2023 1 1 Specialty Diagnoses / Procedures Referred By Contac t Referred To Contact Diagnoses Nephrolithiasis Procedures REFER TO PACC - PRE ANESTHESIA CONSULTATION CLINIC OFFICE/OUTPATIENT [facility] 60-74 MINUTES Chacho Donis MD [address] [place] [address] Referral ID Status Reason Start Date Expiration Date Visits Requested Visits Authorized [id number] Authorized PCP Requested Referral 2 06/27/2023 1 1 Specialty Diagnoses / Procedures Referred By Contac t Referred To Contact CT IMAGING Diagnoses Gross hematuria Calculus of other lower urinary tract location Procedures CT FLANK WO IVCON CT ABD & PELVIS W/O CONTRAST Bettye Powell MD [address] [place] [address] [place] [address] Referral ID Status Reason Start Date Expiration Date V isits Requested Visits Authorized [id number] Closed Auto-Generate d Referral 06/23/2022 07/22/2022 1 1 Specialty Diagnoses / Procedures Referred By Contac t Referred To Contact CT IMAGING Diagnoses Gross hematuria Procedures CT UROGRAM WO/W IVCON CT ABD & PELVIS W/WO CONTRST 1+ BODY Everette Whitney, HEAD PORTER.C 13 CATAPULT OPERATOR, DNP [address] [place] [address] [place] [address] Referral ID Status Reason Start Date Expiration Date Visits Requested Visits Authorized [id number] Authorized Auto-Generat ed Referral 09/24/2023 10/16/2024 1 1 Referral ID Status Reason Start Date Expiration Date V isits Requested Visits Authorized [id number] Closed Auto-Generate d Referral 09/24/2023 10/16/2024 1 [...] or prosecute any alcohol or drug abuse patient.[facility] event this information is protected by the Federal Confidentiality of Alcohol and Drug Abuse Patient Records regulations: The Federal rules restrict any use of the information to criminally investigate or prosecute any alcohol or drug abuse patient.[facility] the event this information is protected by the Federal Confidentiality of Alcohol and Drug Abuse Patient Records regulations: The Federal rules restrict any use of the information to criminally investigate or prosecute any alcohol or drug abuse patient.[facility] the event this information is protected by the Federal Confidentiality of Alcohol and Drug Abuse Patient Records regulations: The Federal rules restrict any use of the information to criminally investigate or prosecute any alcohol or drug abuse patient.[facility] the event this information is protected by the Federal Confidentiality of Alcohol and Drug Abuse Patient Records regulations: The Federal rules restrict any use of the information to criminally investigate or prosecute any alcohol or drug abuse patient.[facility] the event this information is protected by the Federal Confidentiality of Alcohol and Drug Abuse Patient Records regulations: The Federal rules restrict any use of the information to criminally investigate or prosecute any alcohol or drug abuse patient.[facility] the event this information is protected by the Federal Confidentiality of Alcohol and Drug Abuse Patient Records regulations: The Federal rules restrict any use of the information to criminally investigate or prosecute any alcohol or drug abuse patient.[facility] the event this information is protected by the Federal Confidentiality of Alcohol and Drug Abuse Patient Records regulations: The Federal rules restrict any use of the information to criminally investigate or prosecute any alcohol or drug abuse patient.[facility] the event this information is protected by the Federal Confidentiality of Alcohol and Drug Abuse Patient Records regulations: The Federal rules restrict any use of the information to criminally investigate or prosecute any alcohol or drug abuse patient.[facility] the event this information is protected by the Federal Confidentiality of Alcohol and Drug Abuse Patient Records regulations: The Federal rules restrict any use of the information to criminally investigate or prosecute any alcohol or drug abuse patient.[facility] the event this information is protected by the Federal Confidentiality of Alcohol and Drug Abuse Patient Records regulations: The Federal rules restrict any use of the information to criminally investigate or prosecute any alcohol or drug abuse patient.[facility] the event this information is protected by the Federal Confidentiality of Alcohol and Drug Abuse Patient Records regulations: The Federal rules restrict any use of the information to criminally investigate or prosecute any alcohol or drug abuse patient.[facility] the event this information is protected by the Federal Confidentiality of Alcohol and Drug Abuse Patient Records regulations: The Federal rules restrict any use of the information to criminally investigate or prosecute any alcohol or drug abuse patient.[facility] the event this information is protected by the Federal Confidentiality of Alcohol and Drug Abuse Patient Records regulations: The Federal rules restrict any use of the information to criminally investigate or prosecute any alcohol or drug abuse patient.[facility] the event this information is protected by the Federal Confidentiality of Alcohol and Drug Abuse Patient Records regulations: The Federal rules restrict any use of the information to criminally investigate or prosecute any alcohol or drug abuse patient.[facility] the event this information is protected by the Federal Confidentiality of Alcohol and Drug Abuse Patient Records regulations: The Federal rules restrict any use of the information to criminally investigate or prosecute any alcohol or drug abuse patient.[facility] the event this information is protected by the Federal Confidentiality of Alcohol and Drug Abuse Patient Records regulations: The Federal rules restrict any use of the information to criminally investigate or prosecute any alcohol or drug abuse patient.[facility]In the event this information is protected by the Federal Confidentiality of Alcohol and Drug Abuse Patient Records regulations: The Federal rules restrict any use of the information to criminally investigate or prosecute any alcohol or drug abuse patient.[facility] the event this information is protected by the Federal Confidentiality of Alcohol and Drug Abuse Patient Records regulations: The Federal rules restrict any use of the information to criminally investigate or prosecute any alcohol or drug abuse patient.[facility]In the event this information is protected by the Federal Confidentiality of Alcohol and Drug Abuse Patient Records regulations: The Federal rules restrict any use of the information to criminally investigate or prosecute any alcohol or drug abuse patient.[facility]In the event this information is protected by the Federal Confidentiality of Alcohol and Drug Abuse Patient Records regulations: The Federal rules restrict any use of the information to criminally investigate or prosecute any alcohol or drug abuse patient.[facility]In the event this information is protected by the Federal Confidentiality of Alcohol and Drug Abuse Patient Records regulations: The Federal rules restrict any use of the information to criminally investigate or prosecute any alcohol or drug abuse patient.[facility]In the event this information is protected by the Federal Confidentiality of Alcohol and Drug Abuse Patient Records regulations: The Federal rules restrict any use of the information to criminally investigate or prosecute any alcohol or drug abuse patient.[facility]In the event this information is protected by the Federal Confidentiality of Alcohol and Drug Abuse Patient Records regulations: The Federal rules restrict any use of the information to criminally investigate or prosecute any alcohol or drug abuse patient.[facility]In the event this information is protected by the Federal Confidentiality of Alcohol and Drug Abuse Patient Records regulations: The Federal rules restrict any use of the information to criminally investigate or prosecute any alcohol or drug abuse patient.[facility]In the event this information is protected by the Federal Confidentiality of Alcohol and Drug Abuse Patient Records regulations: The Federal rules restrict any use of the information to criminally investigate or prosecute any alcohol or drug abuse patient.[facility] the event this information is protected by the Federal Confidentiality of Alcohol and Drug Abuse Patient Records regulations: The Federal rules restrict any use of the information to criminally investigate or prosecute any alcohol or drug abuse patient.[facility] the event this information is protected by the Federal Confidentiality of Alcohol and Drug Abuse Patient Records regulations: The Federal rules restrict any use of the information to criminally investigate or prosecute any alcohol or drug abuse patient.[facility]In the event this information is protected by the Federal Confidentiality of Alcohol and Drug Abuse Patient Records regulations: The Federal rules restrict any use of the information to criminally investigate or prosecute any alcohol or drug abuse patient.[facility]In the event this information is protected by the Federal Confidentiality of Alcohol and Drug Abuse Patient Records regulations: The Federal rules restrict any use of the information to criminally investigate or prosecute any alcohol or drug abuse patient.[facility]In the event this information is protected by the Federal Confidentiality of Alcohol and Drug Abuse Patient Records regulations: The Federal rules restrict any use of the information to criminally investigate or prosecute any alcohol or drug abuse patient.[facility] the event this information is protected by the Federal Confidentiality of Alcohol and Drug Abuse Patient Records regulations: The Federal rules restrict any use of the information to criminally investigate or prosecute any alcohol or drug abuse patient.[facility]In the event this information is protected by the Federal Confidentiality of Alcohol and Drug Abuse Patient Records regulations: The Federal rules restrict any use of the information to criminally investigate or prosecute any alcohol or drug abuse patient.[facility] the event this information is protected by the Federal Confidentiality of Alcohol and Drug Abuse Patient Records regulations: The Federal rules restrict any use of the information to criminally investigate or prosecute any alcohol or drug abuse patient.[facility]In the event this information is protected by the Federal Confidentiality of Alcohol and Drug Abuse Patient Records regulations: The Federal rules restrict any use of the information to criminally investigate or prosecute any alcohol or drug abuse patient.[facility] the event this information is protected by the Federal Confidentiality of Alcohol and Drug Abuse Patient Records regulations: The Federal rules restrict any use of the information to criminally investigate or prosecute any alcohol or drug abuse patient.[facility]In the event this information is protected by the Federal Confidentiality of Alcohol and Drug Abuse Patient Records regulations: The Federal rules restrict any use of the information to criminally investigate or prosecute any alcohol or drug abuse patient.[facility] the event this information is protected by the Federal Confidentiality of Alcohol and Drug Abuse Patient Records regulations: The Federal rules restrict any use of the information to criminally investigate or prosecute any alcohol or drug abuse patient.[facility] the event this information is protected by the Federal Confidentiality of Alcohol and Drug Abuse Patient Records regulations: The Federal rules restrict any use of the information to criminally investigate or prosecute any alcohol or drug abuse patient.[facility]In the event this information is protected by the Federal Confidentiality of Alcohol and Drug Abuse Patient Records regulations: The Federal rules restrict any use of the information to criminally investigate or prosecute any alcohol or drug abuse patient.[facility]In the event this information is protected by the Federal Confidentiality of Alcohol and Drug Abuse Patient Records regulations: The Federal rules restrict any use of the information to criminally investigate or prosecute any alcohol or drug abuse patient.[facility]In the event this information is protected by the Federal Confidentiality of Alcohol and Drug Abuse Patient Records regulations: The Federal rules restrict any use of the information to criminally investigate or prosecute any alcohol or drug abuse patient.[facility]In the event this information is protected by the Federal Confidentiality of Alcohol and Drug Abuse Patient Records regulations: The Federal rules restrict any use of the information to criminally investigate or prosecute any alcohol or drug abuse patient.[facility]In the event this information is protected by the Federal Confidentiality of Alcohol and Drug Abuse Patient Records regulations: The Federal rules restrict any use of the information to criminally investigate or prosecute any alcohol or drug abuse patient.[facility]In the event this information is protected by the Federal Confidentiality of Alcohol and Drug Abuse Patient Records regulations: The Federal rules restrict any use of the information to criminally investigate or prosecute any alcohol or drug abuse patient.[facility]In the event this information is protected by the Federal Confidentiality of Alcohol and Drug Abuse Patient Records regulations: The Federal rules restrict any use of the information to criminally investigate or prosecute any alcohol or drug abuse patient.[facility]In the event this information is protected by the Federal Confidentiality of Alcohol and Drug Abuse Patient Records regulations: The Federal rules restrict any use of the information to criminally investigate or prosecute any alcohol or drug abuse patient.[facility]In the event this information is protected by the Federal Confidentiality of Alcohol and Drug Abuse Patient Records regulations: The Federal rules restrict any use of the information to criminally investigate or prosecute any alcohol or drug abuse patient.[facility]In the event this information is protected by the Federal Confidentiality of Alcohol and Drug Abuse Patient Records regulations: The Federal rules restrict any use of the information to criminally investigate or prosecute any alcohol or drug abuse patient.[facility] Reason for Visit (unrecogniz ed section and [...] Kidney Problem Reason Comments Hematuria Reason Comments 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 Reason Comments Information Reason Onset [...] PELVIS W/O CONTRAST Bettye Powell MD [address] [place] [address] [place] [address] Referral ID Status Reason Start Date Expiration Date V isits Requested Visits Authorized [id number] Closed Auto-Generate d Referral 06/23/2022 07/22/2022 1 1 Reason Comments Diarrhea Reason Comments vaccine question Reason Comments Kidney Stones Specialty Diagnoses / Procedures Referred By Contac t Referred To Contact CT IMAGING Diagnoses Gross hematuria Procedures CT UROGRAM WO/W IVCON CT ABD & PELVIS W/WO CONTRST 1+ BODY Everette Whitney, HEAD PORTER.C 13 CATAPULT OPERATOR, DNP [address] [place] [address] [place] [address] Referral ID Status Reason Start Date Expiration Date V isits Requested Visits Authorized [id number] Closed Auto-Generate d Referral 09/24/2023 10/16/2024 1 [...] Care Teams (unrecognized sec tion and content) Manager Star Relationship Specialty Start Date End Date Bettye oPwell MD [address] [facility] [place] [address] PCP - General Internal Medicine 02/09/14 Manager Star Relationship Specialty Start Date End Date Bettye Powell MD [address] [facility] [place] [address] PCP - General Internal Medicine 02/09/14 Manager Star Relationship Specialty Start Date End Date Bettye Powell MD [address] [facility] [place] [address] PCP - General Internal Medicine 02/09/14 Manager Star Relationship Specialty Start Date End Date Bettye Powell MD [address] [facility] [place] [address] PCP - General Internal Medicine 02/09/14 Manager Star Relationship Specialty Start Date End Date Bettye Powell MD [address] [facility] [place] [address] PCP - General Internal Medicine 02/09/14 Manager Star Relationship Specialty Start Date End Date Bettye Powell MD [address] [facility] [place] [address] PCP - General Internal Medicine 02/09/14 Manager Star Relationship Specialty Start Date End Date Bettye Powell MD [address] [facility] [place] [address] PCP - General Internal Medicine 02/09/14 Manager Star Relationship Specialty Start Date End Date Bettye Powell MD [address] [facility] [place] [address] PCP - General Internal Medicine 02/09/14 Manager Star Relationship Specialty Start Date End Date Bettye Powell MD [address] [place] [address] PCP - General Internal Medicine 02/09/14 Manager Star Relationship Specialty Start Date End Date Bettye Powell MD [address] [place] [address] PCP - General Internal Medicine 02/09/14 Manager Star Relationship Specialty Start Date End Date Bettye Powell MD [address] [place] [address] PCP - General Internal Medicine 02/09/14 Manager Star Relationship Specialty Start Date End Date Bettye Powell MD [address] [place] [address] PCP - General Internal Medicine 02/09/14 Manager Star Relationship Specialty Start Date End Date Bettye Powell MD [address] [place] [address] PCP - General Internal Medicine 02/09/14 Manager Star Relationship Specialty Start Date End Date Bettye Powell MD [address] [place] [address] PCP - General Internal Medicine 02/09/14 Manager Star Relationship Specialty Start Date End Date Bettye Powell MD [address] [place] [address] PCP - General Internal Medicine 02/09/14 Manager Star Relationship Specialty Start Date End Date Bettye Powell MD [address] [place] [address] PCP - General Internal Medicine 02/09/14 Manager Star Relationship Specialty Start Date End Date Bettye Powell MD [address] [place] [address] PCP - General Internal Medicine 02/09/14 Manager Star Relationship Specialty Start Date End Date Bettye Powell MD [address] [facility] [place] [address] PCP - General Internal Medicine 02/09/14 Manager Star Relationship Specialty Start Date End Date Bettye Powell MD [address] [facility] [place] [address] PCP - General Internal Medicine 02/09/14 Manager Star Relationship Specialty Start Date End Date Bettye Powell MD [address] [place] [address] PCP - General Internal Medicine 02/09/14 Manager Star Relationship Specialty Start Date End Date Bettye Powell MD [address] [place] [address] PCP - General Internal Medicine 02/09/14 Manager Star Relationship Specialty Start Date End Date Bettye Powell MD [address] [place] [address] PCP - General Internal Medicine 02/09/14 Manager Star Relationship Specialty Start Date End Date Bettye Powell MD [address] [place] [address] PCP - General Internal Medicine 02/09/14 Manager Star Relationship Specialty Start Date End Date Bettye Powell MD [address] [place] [address] PCP - General Internal Medicine 02/09/14 Manager Star Relationship Specialty Start Date End Date Bettye Powell MD [address] [place] [address] PCP - General Internal Medicine 02/09/14 Manager Star Relationship Specialty Start Date End Date Bettye Powell MD [address] [place] [address] PCP - General Internal Medicine 02/09/14 Manager Star Relationship Specialty Start Date End Date Bettye Powell MD [address] [place] [address] PCP - General Internal Medicine 02/09/14 Manager Star Relationship Specialty Start Date End Date Bettye Powell MD [address] [place] [address] PCP - General Internal Medicine 02/09/14 Manager Star Relationship Specialty Start Date End Date Bettye Powell MD [address] [place] [address] PCP - General Internal Medicine 02/09/14 Manager Star Relationship Specialty Start Date End Date Bettye Powell MD [address] [place] [address] PCP - General Internal Medicine 02/09/14 Manager Star Relationship Specialty Start Date End Date Bettye Powell MD [address] [place] [address] PCP - General Internal Medicine 02/09/14 Manager Star Relationship Specialty Start Date End Date Bettye Powell MD [address] [place] [address] PCP - General Internal Medicine 02/09/14 Manager Star Relationship Specialty Start Date End Date Bettye Powell MD [address] [place] [address] PCP - General Internal Medicine 02/09/14 Manager Star Relationship Specialty Start Date End Date Bettye Powell MD [address] [place] [address] PCP - General Internal Medicine 02/09/14 Manager Star Relationship Specialty Start Date End Date Bettye Powell MD [address] [place] [address] PCP - General Internal Medicine 02/09/14 Rachel Guthrie PA-C [address] [place] [id number] Patent Prosecution Attorney Family Medicine 07/20/24 Amada Muro, HANNY.C 13 [employer] [address] [place] [address] Patent Prosecution Attorney Internal Medicine 07/20/24 Rere Gonzales PA-C [address] [place] [address] Patent Prosecution Attorney Family Medicine 07/20/24 Manager Star Relationship Specialty Start Date End Date Bettye Powell MD [address] [place] [address] PCP - General Internal Medicine 02/09/14 Rachel Guthrie PA-C [address] [place], [place] [id number] [phone] Patent Prosecution Attorney Family Medicine 07/20/24 Amada Muro, HANNY.C 13 CATAPULT OPERATOR [address] [place] [address] Patent Prosecution Attorney Internal Medicine 07/20/24 Rere Gonzales PA-C [address] [place] [address] Patent Prosecution Attorney Family Medicine 07/20/24 (unrecognized sect ion and content) No Status Records FoundNo Status Records FoundNo Status Records Found INFORMATION SOURCE (unrecogn ized section and content) DATE CREATED AUTHOR 07/15/2022 [facility] DATE CREATED AUTHOR AUTHOR'S ORGANIZ ATION 03/18/2024 [facility] DATE CREATED AUTHOR AUTHOR'S ORGANIZ ATION 09/08/2024 [facility] FOR RECORDS PERTAINING TO PATIENTS WHO ARE [...] BE BASED ON THE PRIMARY CLINICAL RECORDS. [facility] [employer] [facility]. provides no warranty or guarantee of the accuracy or completeness of information in this document.
[2025-01-14 04:46] LABS: Magnesium 1.9 mg/dL (1.5-2.2)
--- NOTE | 2025-01-14 05:08 | MRI_ITS ---
PROCEDURE: BRAIN WITHOUT CONTRAST 01/14/2025 REASON FOR EXAM: Right facial droop, right-sided weakness, slurred speech. History of colon cancer. TECHNIQUE: Noncontrast brain MRI. Multiplanar and multisequence images were obtained. COMPARISON: CT head without contrast and CTA head and neck, 01/14/2025. FINDINGS: There is a normal sulcal pattern and gyral configuration. The henriquez-white differentiation is well preserved. The ventricles and basilar cisterns are normal. There are normal flow voids demonstrated in the recognized intracranial vessels. There is an area of restricted diffusion in the left side of the brainstem at the mid lily level, abutting the midline, consistent with an acute infarction. There is no significant associated edema or mass effect. The cerebellum is unremarkable. The cerebellar pontine angles are normal. The craniovertebral junction is normal. The sella and suprasellar regions are normal. The orbits and retro-orbital regions are unremarkable. The nasal septum is midline. There is mucoperiosteal thickening of the left maxillary sinus. There is a large mucous retention cyst in the left maxillary sinus. The mastoid air cells are clear. There is normal bone marrow signal in the skull base and calvarium. MRI/Brain without Contrast IMPRESSION: 1. Acute left pontine infarction. 2. Other findings as noted. Findings were called to the [facility] on the afternoon of 01/14/2025 at 1:1 5 p.m. Reading Location: [id number]
--- NOTE | 2025-01-14 05:08 | ECHOCS_ITS ---
Reason For Study Reason For Study: TIA/CVA Procedure This was a 2D Doppler, Color Flow transthoracic echocardiogram. The study was technically difficult. Due to body habitus, deep respirations & leg cramps. Contrast injection was performed. Exam performed portable in ICU/CCU. Left Ventricle Normal LV size. Mild concentric left ventricular hypertrophy. The LV systolic function is normal. EF is 65 %. Stage 1 diastolic dysfunction. Right Ventricle Normal right ventricle. Atria The left and right atria are normal. Hypermobile interatrial septum. Bubble contrast study nondiagnostic for PFO/ASD. Mitral Valve Trivial mitral valve insufficiency. Tricuspid Valve Trivial tricuspid valve insufficiency. Unable to estimate RV systolic pressure due to insufficient tricuspid regurgitant envelope. Aortic Valve Trisinus/trileaflet aortic valve. Pulmonic Valve The pulmonic valve is not well visualized. Great Vessels Atherosclerotic aortic root with mild calcification. Pericardium/Pleural No pericardial effusion. Medication Diluted definity 4.0ml given slow IV push to enhance endocardial definition. Performed a rapid injection of agitated mix of 9 cc saline and 1cc air to assess for atrial septal defect. MMode/2D Measurements & Calculations LVIDd: 4.7 cm IVSd: 1.2 cm Ao root diam: 3.5 cm LVIDs: 2.9 cm LVPWd: 1.2 cm RVDd: 2.8 cm FS: 37.3 % LAV(MOD-sp4): 33.6 ml LVAd ap4: 32.7 cm2 SV(MOD-sp4): 67.6 ml LVLd ap4: 8.9 cm SI(MOD-sp4): 28.7 ml/m2 EDV(MOD-sp4): 98.9 ml EDV(sp4-el): 102.1 ml LVAs ap4: 16.4 cm2 LVLs ap4: 7.0 cm ESV(MOD-sp4): 31.3 ml ESV(sp4-el): 32.5 ml EF(MOD-sp4): 68.3 % EF(sp4-el): 68.2 % SV(sp4-el): 69.7 ml LA A4 area: 13.9 cm2 LA dimension(2D): 4.0 cm RA A4 area: 14.1 cm2 TAPSE: 2.3 cm Time Measurements MV dec time: 0.22 sec Doppler Measurements & Calculations MV E max russ: 61.2 cm/sec Lat Peak E' Russ: 17.5 cm/sec Med Peak E' Russ: 8.2 cm/sec MV A max russ: 84.0 cm/sec E/E' lat: 3.5 E/E' med: 7.5 MV E/A: 0.73 MV V2 max: 86.8 cm/sec MV P1/2t max russ: 67.6 cm/sec Ao V2 max: 137.4 cm/sec MV max P.0 mmHg MV P1/2t: 67.5 msec Ao max P.6 mmHg MV V2 mean: 41.6 cm/sec MV dec slope: 293.2 cm/sec2 Ao V2 mean: 82.4 cm/sec MV mean P.85 mmHg MVA(P1/2t): 3.3 cm2 Ao mean P.1 mmHg MV V2 VTI: 21.2 cm Ao V2 VTI: 21.4 cm AV (velocity ratio): 0.76 LV V1 max: 100.0 cm/sec PA V2 max: 132.1 cm/sec TR max russ: 229.9 cm/sec LV V1 max P.0 mmHg PA V2 mean: 78.4 cm/sec TR max P.1 mmHg LV V1 mean P.8 mmHg PA V2 VTI: 21.0 cm LV V1 mean: 63.0 cm/sec LV V1 VTI: 16.2 cm ECHO/Echo Complete W/ Contrast Interpretation Summary The LV systolic function is normal. EF is 65 %. Stage 1 diastolic dysfunction. Hypermobile interatrial septum. Bubble contrast study nondiagnostic for PFO/ASD . Atherosclerotic aortic root with mild calcification. The study was technically difficult. Ordering Physician: Gladys Marin Referring Physician: Joi Gill Performed By: Oma Stewart, NORACS, RVT
[2025-01-14 05:14] LABS: Hemoglobin A1c 7.5 % (<=5.6)
[2025-01-14 05:35] LABS: Bedside Glucose 146 mg/dL (74-106)
[2025-01-14 05:40] LABS: Absolute Lymphocyte Count 1.65 X10^3/uL (0.83-4.51); Absolute Neutrophil Count 7.7 X10^3/uL (2.0-7.7); Basophil# 0.07 X10^3/uL; Basophil% 0.7 % (0-1); Eosinophil# 0.23 X10^3/uL; Eosinophils% 2.2 % (0-5); Hematocrit 37.6 % (40-54); Lymphocyte # 1.65 X10^3/ul (0.83-4.51); Lymphocyte % 15.8 % (19-41); Mean Corp Hgb Conc 31.9 g/dL (32-36); Mean Corpuscular Hgb 25.4 pg (27.0-32.0); Mean Corpuscular Volume 79.5 fL (80-94); Monocyte# 0.76 X10^3/uL; Monocyte% 7.3 % (0-10); NRBC Flagged by Analyzer 0 % (0-5); Neutrophil % 73.7 % (47-70); Platelet Count 275 K/mm3 (150-450); RBC Distribution Width CV 15.2 % (11.6-14.6); RBC Distribution Width SD 43.8 fl (35.1-43.9); Red Blood Count 4.73 M/mm3 (4.6-6.2); White Blood Count 10.4 K/mm3 (4.4-11.0)
[2025-01-14 05:43] LABS: ALB/GLOB Ratio 1.4 RATIO (0.9-2.4); AST(SGOT) 38 U/L (<=37); Alanine Aminotransfer ALT/SGPT 38 U/L (<=46); Albumin, Serum 3.8 g/dL (3.4-4.8); Alkaline Phosphatase 73 U/L (40-129); Anion Gap 12 (5-15); BUN 10 mg/dL (4-19); BUN/Creat Ratio 12.5 RATIO (10-20); Carbon Dioxide 22.1 mmol/L (21.0-32.0); Chloride 102 mmol/L (98-108); Cholesterol 188 mg/dL (<=200); Creatinine, Serum 0.83 mg/dL (0.70-1.20); EST Glomerular Filtration Rate 99 (>60); Estimated Creatinine Clearance 120.68 ml/min (50-250); Globulin 2.8 g/dL (2.2-4.2); Glucose 149 mg/dL (70-99); High Density Lipoprotein 40 mg/dL; Low Density Lipoprotein Calc. 125 mg/dL; Potassium 4.2 mmol/L (3.3-5.1); Protein, Total 6.7 g/dL (5.9-8.4); Sodium Level 137 mmol/L (133-145); Total Bilirubin 0.33 mg/dL (0.00-1.30); Triglycerides 115 mg/dL; Very Low Density Lipoprotein 23 mg/dL (5-40); cholesterol:hdl ratio screen 4.68
[2025-01-14] MEDS: Levothyroxine 50 MCG Tablet PO (06:23)
--- NOTE | 2025-01-14 07:07 | PN.HOSP_ITS ---
Reason for Visit Reason for Visit: Diagnoses Cerebral infarction, unspecified (01/14/25) Subjective Subjective Patient is a 64-year-old gentleman who presented with right-sided weakness facial droop slurred speech Objective Data Objective Data Vital Signs: Vital Signs Temp Pulse Resp BP Pulse Ox O2 Del Method 97.5 F L 72 19 H 146/83 H 98 Room Air 01/14/25 05:00 01/14/25 05:00 01/14/25 05:00 01/14/25 05:00 01/14/25 05:00 01/14/25 05:00 Oxygen Delivery Method Room Air Weight: 118.2 kg Body Mass Index (BMI) 36.3 Intake & Output: Intake and Output for Last 24 Hours 01/12/25 01/13/25 01/14/25 23:59 23:59 23:59 Intake Total 0 / 0 Output Total 300 / 300 Balance -300 / -300 Lab / Micro Data 01/14/25 05:15 01/14/25 05:15 Labs: Laboratory Results - last 24 hr 01/14/25 03:04: WBC 12.5 H, RBC 5.05, Hgb 12.8 L, Hct 40.4, MCV 80.0, MCH 25.3 L , MCHC 31.7 L, RDW Std Deviation 44.1 H, RDW Coeff of Severiano 15.3 H, Plt Count 319, MPV 10.0, Immature Gran % (Auto) 0.400, Neut % (Auto) 59.3, Lymph % (Auto) 27.2, [place] % (Auto) 9.5, Eos % (Auto) 3.0, Baso % (Auto) 0.6, Absolute Neuts (auto) 7.4, Absolute Lymphs (auto) 3.39, Nucleated RBC % 0, PT 13.0, INR 1.0, APTT 29.9, Sodium 137, Potassium 3.7, Chloride 100, Carbon Dioxide 22.7, Anion Gap 14, BUN 11, Creatinine 0.93, Estim Creat Clear Calc 107.61, Est GFR (MDRD) Non- Af 93, BUN/Creatinine Ratio 11.9, Glucose 139 H, Hemoglobin A1c 7.5 H, Calcium 9.3, Magnesium 1.9, TSH 5.660 H 01/14/25 03:46: Urine Color Yellow, Urine Clarity Clear, Urine pH 6.5, Ur Specific [place] 1.010, Urine Protein Negative, Urine Glucose (UA) Normal, Urine Ketones Negative, Urine Occult Blood Negative, Urine Nitrite Negative, Urine Bilirubin Negative, Urine Urobilinogen Normal, Ur Leukocyte Esterase Negative, Urine RBC 0 SEEN, Urine WBC 0 SEEN, Ur Squamous Epith Cells 0 SEEN, Urine Bacteria 0 SEEN, Urine Mucus 0 SEEN 01/14/25 05:15: WBC 10.4, RBC 4.73, Hgb 12.0 L, Hct 37.6 L, MCV 79.5 L, MCH 25.4 L, MCHC 31.9 L, RDW Std Deviation 43.8, RDW Coeff of Severiano 15.2 H, Plt Count 275, MPV 10.0, Immature Gran % (Auto) 0.300, Neut % (Auto) 73.7 H, Lymph % (Auto) 15.8 L, [place] % (Auto) 7.3, Eos % (Auto) 2.2, Baso % (Auto) 0.7, Absolute Neuts (auto) 7.7, Absolute Lymphs (auto) 1.65, Nucleated RBC % 0, Sodium 137, Potassium 4.2, Chloride 102, Carbon Dioxide 22.1, Anion Gap 12, BUN 10, Creatinine 0.83, Estim Creat Clear Calc 120.68, Est GFR (MDRD) Non-Af 99, BUN/Creatinine Ratio 12.5, Glucose 149 H, Calcium 9.0, Total Bilirubin 0.33, AST 38, ALT 38, Alkaline Phosphatase 73, Total Protein 6.7, Albumin 3.8, Globulin 2.8, Albumin/Globulin Ratio 1.4, Triglycerides 115, Cholesterol 188, LDL Cholesterol, Calc 125, VLDL Cholesterol 23, HDL Cholesterol 40, Cholesterol/HDL Ratio 4.68, POC Glucose 146 H Radiography Diagnostic Testing: Radiology Impression Brain CT 01/14/25 03:04 IMPRESSION: 1. No acute intracranial abnormality. 2. Left maxillary sinus disease. Reading Location: [id number] Head/Neck CTA 01/14/25 03:04 IMPRESSION: No hemodynamically significant narrowing or large vessel occlusion of the head or neck vasculature. Reading Location: [id number] Chest X-Ray 01/14/25 04:09 IMPRESSION: No evidence of an acute cardiopulmonary abnormality. Reading Location: [id number] Physical Exam Narrative GENERAL: cooperative but dysarthric HEENT: Atraumatic; normocephalic EYES; Anicteric, Normal Conjunctiva NECK; supple, normal thyroid, RESPIRATORY: Diminished to auscultation CARDIOVASCULAR: Regular S1 S2, GI: soft, normoactive bowel sounds, : No Renal angle tenderness; EXTREMITIES: No edema, no clubbing, MUSCULOSKELETAL: no muscle wasting NEURO: Awake; weakness involving the right upper SKIN: No Rash PSYCH; Flat affect Assessment & Plan Assessment/Plan (1) Acute cerebrovascular accident (CVA): PLAN: Plan Patient is a 64-year-old gentleman who presented with right-sided weakness facial droop slurred speech 1. Acute CVA ? Patient presented with right-sided hemiplegia with dysarthria and facial droop. Initial imaging studies with CT of the head and CTA of the head and neck unremarkable. Patient has been admitted to a monitored bed neurochecks ordered. Subsequently ordered lipid panel, 2D echo MRI and neurology consultation 2. Coronary artery disease with previous non-STEMI status post PCI to the mid circumflex and distal third obtuse lesion. Patient is on guideline directed medical therapy 3. History of colon cancer ? Status post colectomy with end ileostomy patient has since remained in remission 4. Class II obesity with BMI of 36.3 ? Complicating care weight loss advised 5. Diabetes mellitus type II -patient's oral hypoglycemics held. Placed on long acting insulin, Accu-Cheks a.c. and at bedtime and covered with sliding scale insulin 6. Dyslipidemia ?Patient is on statin therapy, continued at home dose 7. Hypertension ? Blood pressure controlled, with patient presenting with strokelike symptoms permissive hypertension protocol is being followed 8. Hypothyroidism ? Patient is on levothyroxine home dose continued 9. GERD ? On PPI 10. DVT prophylaxis ? Subcu Lovenox Time spent in the patient's overall evaluation,decision-making process, review of diagnostic data, adjustment of management, discussion with other providers, nursing nursing and ancillary staff involved in patient's care documentation, 55 Minutes Charges/Coding Visit Charges Inpatient E&M: 85548 Subs Hosp L3 NIHSS NIHSS Nursing Documentation NIHSS Nursing Documentation: NIHSS: Ischemic Stroke/TIA Start: 01/14/25 05:08 Text: For PCU Patients: NIH and Neuro Check every 4 Status: Active hours, PRN and with change in RN caregiver. Freq: Q4H Protocol: Activity Type Activity Date Activity User E-sign Co-sign Detail Recorded Client Recorded Date Recorded By Document 01/14/25 05:00 [facility] [place] [id number] 01/14/25 05:29 [facility] [place] 01/14/25 05:00 NIH Stroke Scale [NIHSS] A score of 0 is normal or asymptomatic . Total possible score is 42. Inpatient: RN or Physician to activate a stroke alert for onset of new stroke symptoms or with NIHSS increase >/= 3 points. Following change in neurological status, NIHSS will be performed per physician order or more frequently PRN. -1a. Level of Consciousness 0 - Alert; keenly responsive -1b. LOC Questions 0 - Answers BOTH questions correctly -1c. LOC Commands 0 - Performs BOTH tasks correctly -2. Best Gaze 0 - Normal -3. Visual 0 - No visual loss -4. Facial Palsy 1 - Minor paralysis ( flattened nasolabial fold , asymmetry on smiling) -5a. Left Arm 0 - No drift; arm holds 90 ( or 45) degrees for full 10 seconds -5b. Right Arm 1 - Drift; arm drifts downward but doesn?t hit the bed -6a. Left Leg 1 - Drift; leg falls by the end of 5- seconds, but does not hit bed -6b. Right Leg 2 - Some effort against gravity; -7. Limb Ataxia 1 - Present in 1 limb -8. Sensory 1 - Mild-to- moderate sensory loss; -9. Best Language 1 - Mild-to- moderate aphasia; -10. Dysarthria 1 = Mild-to- moderate dysarthria; -11. Extinction and Inattention 0 - No abnormality -Total 9 Query Text:A score of 0 is normal or asymptomatic. Total possible score is 42 . ED: Notify Physician for NIHSS increase by > / = 3 points. Inpatient: RN or Physician to activate a stroke alert for NIHSS increase of > / = 3 points.
[2025-01-14] MEDS: Aspirin E.C. 81 MG Tablet PO (08:35)
[2025-01-14] MEDS: Enoxaparin 40 MG/0.4 ML Syringe SC (08:35)
[2025-01-14] MEDS: Pantoprazole Sodium 40 MG Tablet PO (08:35)
[2025-01-14 08:36] LABS: Bedside Glucose 145 mg/dL (74-106)
[2025-01-14] MEDS: tiZANidine HCl 2 MG Tablet 4 MG PO ×2 (10:28→21:29)
--- NOTE | 2025-01-14 11:42 | CASEMGMT ---
BUSHRA MCKEON Assessment Face to Face with patient for initial transition planning/care coordination assessment. BUSHRA MCKEON introduced self and role at [facility], pt voices understanding. Pt is A&Ox4 and is resting comfortably in bed and is calm. Care providers, pharmacy, and demographics verified. Admitting dx: CVA LACE Strata: 2 PCP: Bridget Specialists: [facility] Preferred Pharmacy: [facility] Insurance: MMO Prescription Benefit: Yes LNOK: Muriel (W) Living Arrangements : Pt lives with his in a 2 story home with 2 steps to enter ADLs/IADLs: Pt states that he is independent at baseline Transportation: Self, DME: [facility] with sufficient supplies. Denies other DME at this time HHC/SNF: Denies hx Pt?s goal: Return to PLOF Plan: Anticipate inpatient RU. PT is recommending this for the pt. Pt states that he is agreeable at this time and denies further questions or concerns. SW plans to follow up with the pt and to make referral once appropriate. Care Management to follow. Tevin Auguste RN, CM
[2025-01-14 13:51] LABS: Bedside Glucose 126 mg/dL (74-106)
[2025-01-14] MEDS: PARoxetine 10 MG Tablet PO (15:28)
--- NOTE | 2025-01-14 16:31 | CASEMGMT ---
Social Work PHQ9 interview completed due to stroke. Pt with score of 0 indicating no depression. SW educated pt to correlation of stroke and depression. ROMEO Amezcua
[2025-01-14 18:23] LABS: Bedside Glucose 130 mg/dL (74-106)
[2025-01-14] MEDS: Insulin Lispro 100 UNIT/ML INSULN.PEN SC (21:29)
[2025-01-14 21:30] LABS: Bedside Glucose 150 mg/dL (74-106)
[2025-01-14] MEDS: Latanoprost 0.005% 1 Bottle 0.005 DRP EACH EYE (21:30)
[2025-01-15] VITALS (10 sets, daily range): BP systolic 140–168; BP diastolic 82–113; PULSE 62–76; RESP 14–21; TEMP 36.4; O2SAT 95–99; BMI 36.3; BMI 36.5
[2025-01-15] MEDS: 0.9% Normal Saline (1000mL) 1,000 ML 100 ML IV ×2 (04:29→15:06)
[2025-01-15] MEDS: Levothyroxine 50 MCG Tablet PO (05:09)
[2025-01-15 06:54] LABS: Bedside Glucose 126 mg/dL (74-106)
--- NOTE | 2025-01-15 09:07 | PN.HOSP_ITS ---
Reason for Visit Reason for Visit: Diagnoses Cerebral infarction, unspecified (01/14/25) Subjective Subjective MRI obtained the day prior demonstrated acute left pontine infarction Objective Data Objective Data Vital Signs: Vital Signs Temp Pulse Resp BP Pulse Ox O2 Del Method 97.6 F L 76 21 H 150/82 H 98 Room Air 01/15/25 05:00 01/15/25 08:34 01/15/25 08:34 01/15/25 08:34 01/15/25 08:34 01/15/25 08:34 Oxygen Delivery Method Room Air Weight: 118.4 kg Body Mass Index (BMI) 36.5 Intake & Output: Intake and Output for Last 24 Hours 01/13/25 01/14/25 01/15/25 23:59 23:59 23:59 Intake Total 1950 / 1950 1000 / 1000 Output Total 900 / 900 800 / 800 Balance 1050 / 1050 200 / 200 Lab / Micro Data 01/14/25 05:15 01/14/25 05:15 Labs: Laboratory Results - last 24 hr 01/14/25 13:19: POC Glucose 126 H 01/14/25 16:43: POC Glucose 130 H 01/14/25 21:09: POC Glucose 150 H 01/15/25 06:31: POC Glucose 126 H Radiography Diagnostic Testing: Radiology Impression Brain MRI 01/14/25 05:08 IMPRESSION: 1. Acute left pontine infarction. 2. Other findings as noted. Findings were called to the [place] [facility] on the afternoon of 01/14/2025 at 1:15 p.m. Reading Location: [id number] Echocardiogram 01/14/25 05:08 Interpretation Summary The LV systolic function is normal. EF is 65 %. Stage 1 diastolic dysfunction. Hypermobile interatrial septum. Bubble contrast study nondiagnostic for PFO/ASD. Atherosclerotic aortic root with mild calcification. The study was technically difficult. Ordering Physician: Gladys Marin Referring Physician: Joi Gill Performed By: Oma Stewart, SHAWN, RVT Physical Exam Narrative GENERAL:dysarthric HEENT: Atraumatic; normocephalic EYES; Anicteric, Normal Conjunctiva NECK; supple, normal thyroid, RESPIRATORY: Diminished to auscultation CARDIOVASCULAR: Regular S1 S2, GI: soft, normoactive bowel sounds, : No Renal angle tenderness; EXTREMITIES: No edema, no clubbing, MUSCULOSKELETAL: no muscle wasting NEURO: Awake; weakness involving the right upper SKIN: No Rash PSYCH; Flat affect Assessment & Plan Assessment/Plan (1) Acute cerebrovascular accident (CVA): PLAN: Plan Patient is a 64-year-old gentleman who presented with right-sided weakness facial droop slurred speech 1. Acute CVA ? Patient presented with right-sided hemiplegia with dysarthria and facial droop. Initial imaging studies with CT of the head and CTA of the head and neck unremarkable. Patient has been admitted to a monitored bed neurochecks ordered. Subsequently ordered lipid panel, 2D echo MRI and neurology consultation ? 01/15/2025; MRI demonstrated acute pontine infarction.2D echo demonstrated normal LV function with EF of 65% with hypermobile intra atrial septum bubble contrast study nondiagnostic for PFO/ASD. Consult [facility] to [facility]. Patient remains on antiplatelet therapy with aspirin, started patient on atorvastatin 2. Coronary artery disease with previous non-STEMI status post PCI to the mid circumflex and distal third obtuse lesion. Patient is on guideline directed medical therapy 3. History of colon cancer ? Status post colectomy with end ileostomy patient has since remained in remission 4. Class II obesity with BMI of 36.3 ? Complicating care weight loss advised 5. Diabetes mellitus type II -patient's oral hypoglycemics held. Placed on long acting insulin, Accu-Cheks a.c. and at bedtime and covered with sliding scale insulin 6. Dyslipidemia ?Patient is on statin therapy, continued at home dose 7. Hypertension ? Blood pressure controlled, with patient presenting with strokelike symptoms permissive hypertension protocol is being followed 8. Hypothyroidism ? Patient is on levothyroxine home dose continued 9. GERD ? On PPI 10. DVT prophylaxis ? Subcu Lovenox 11. Depression ? Started patient on Paxil Time spent in the patient's overall evaluation,decision-making process, review of diagnostic data, adjustment of management, discussion with other providers, nursing nursing and ancillary staff involved in patient's care documentation, 40 Minutes Charges/Coding Visit Charges Inpatient E&M: 79344 Subs Hosp L2 NIHSS NIHSS Nursing Documentation NIHSS Nursing Documentation: NIHSS: Ischemic Stroke/TIA Start: 01/14/25 05:08 Text: For PCU Patients: NIH and Neuro Check every 4 Status: Active hours, PRN and with change in RN caregiver. Freq: Q4H Protocol: Activity Type Activity Date Activity User E-sign Co-sign Detail Recorded Client Recorded Date Recorded By Document 01/15/25 08:46 CD [id number] 01/15/25 08:48 CD 01/15/25 08:46 NIH Stroke Scale [NIHSS] A score of 0 is normal or asymptomatic . Total possible score is 42. Inpatient: RN or Physician to activate a stroke alert for onset of new stroke symptoms or with NIHSS increase >/= 3 points. Following change in neurological status, NIHSS will be performed per physician order or more frequently PRN. -1a. Level of Consciousness 0 - Alert; keenly responsive -1b. LOC Questions 0 - Answers BOTH questions correctly -1c. LOC Commands 0 - Performs BOTH tasks correctly -2. Best Gaze 0 - Normal -3. Visual 0 - No visual loss -4. Facial Palsy 1 - Minor paralysis ( flattened nasolabial fold , asymmetry on smiling) -5a. Left Arm 0 - No drift; arm holds 90 ( or 45) degrees for full 10 seconds -5b. Right Arm 3 - No effort against gravity ; arm falls -6a. Left Leg 0 - No drift; leg holds 30- degree position for full 5 seconds -6b. Right Leg 3 - No effort against gravity ; leg falls to bed immediately -7. Limb Ataxia 1 - Present in 1 limb -8. Sensory 0 - Normal; no sensory loss -9. Best Language 0 - No aphasia; normal -10. Dysarthria 1 = Mild-to- moderate dysarthria; -11. Extinction and Inattention 0 - No abnormality -Total 9 Query Text:A score of 0 is normal or asymptomatic. Total possible score is 42 . ED: Notify Physician for NIHSS increase by > / = 3 points. Inpatient: RN or Physician to activate a stroke alert for NIHSS increase of > / = 3 points.
[2025-01-15] MEDS: Enoxaparin 40 MG/0.4 ML Syringe SC (09:40)
[2025-01-15] MEDS: Pantoprazole Sodium 40 MG Tablet PO (09:40)
[2025-01-15] MEDS: PARoxetine 10 MG Tablet PO (09:40)
[2025-01-15] MEDS: Aspirin E.C. 81 MG Tablet PO (09:41)
[2025-01-15 10:39] LABS: Hematocrit 37.8 % (40-54); Hemoglobin 12.2 g/dL (13.0-16.5); Mean Corp Hgb Conc 32.3 g/dL (32-36); Mean Corpuscular Hgb 25.5 pg (27.0-32.0); Mean Corpuscular Volume 78.9 fL (80-94); Mean Platelet Vol. 9.9 fl (6.2-12.0); Platelet Count 276 K/mm3 (150-450); RBC Distribution Width SD 43.2 fl (35.1-43.9); Red Blood Count 4.79 M/mm3 (4.6-6.2); White Blood Count 9.5 K/mm3 (4.4-11.0)
[2025-01-15 11:28] LABS: ALB/GLOB Ratio 1.3 RATIO (0.9-2.4); AST(SGOT) 42 U/L (<=37); Alanine Aminotransfer ALT/SGPT 40 U/L (<=46); Albumin, Serum 3.7 g/dL (3.4-4.8); Alkaline Phosphatase 66 U/L (40-129); Anion Gap 11 (5-15); BUN 8 mg/dL (4-19); Calcium,Total 8.7 mg/dL (7.6-11.0); Carbon Dioxide 21.4 mmol/L (21.0-32.0); Chloride 106 mmol/L (98-108); Creatinine, Serum 0.77 mg/dL (0.70-1.20); EST Glomerular Filtration Rate 101 (>60); Globulin 2.9 g/dL (2.2-4.2); Glucose 194 mg/dL (70-99); Magnesium 2.2 mg/dL (1.5-2.2); Phosphorus 2.3 mg/dL (2.7-4.5); Protein, Total 6.6 g/dL (5.9-8.4); Sodium Level 138 mmol/L (133-145); Total Bilirubin 0.31 mg/dL (0.00-1.30)
--- NOTE | 2025-01-15 11:35 | ST.MBS ---
Modified Barium Swallow Patient Information Study Date: 01/15/25 Study Time: 10:30 Direct Billable Minutes: 112 Total Minutes procedure & reportin Diagnosis: Acute CVA I63.9 Referring Physician: Ricardo Kay Reason for Referral: Assess swallow function, assess risk for aspiration, and determine recommendations for least restrictive diet textures and compensatory strategies to improve safety of swallow. Medical History: PMH: HTN, Hypothyroidism, History of colon cancer s/p partial colectomy ileostomy, NSTEMI 10/24/2018, DM type 2, Obesity, RLS, GERD, Atherosclerotic heart disease of [place] coronary artery without angina pectoris, ACS 10/24/2018 - See EMR for full PMH. The patient presented to [facility] ED 01/14/2025 with history of onset right-sided facial droop, right-sided weakness, and slurred speech. Stroke alert initiated. CT of the brain with no acute intracranial findings, CTA head and neck w/ no hemodynamically significant narrowing or large vessel occlusion of the head or neck vasculature. Patient was admitted to ICU for further CVA work up. Brain MRI 01/14/2025 revealed Acute left pontine infarction. ST consulted as part of CVA work up. BSE completed 01/14/2025, which revealed moderate oropharyngeal dysphagia and recommended soft and bite size textures / thin liquids w/ aspiration and pocketing-related precautions. [employer] recommended MBSS today to further assess swallow function and aspiration risk given location of CVA and occ s/s of aspiration w/ liquids. 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 Lives at home w/ . Pt and jointly manage household finances and pt manages his own medications. At time of BSE, pt and mother denied concern for changes to cognition and language, just speech clarity. RN noted infrequent word finding difficulty. Current Diet Ordered: Soft and bite size textures / Thin liquids Dentition: Natural Teeth Mental Status: WNL Respiratory Status: Oxygenating on Room Air Penetration-Aspiration Scale Penetration-Aspiration Scale: OBJECTIVE ASSESSMENT OF SWALLOW FUNCTION (QUANTITATIVE ? PER TRIAL): PENETRATION / ASPIRATION SCALE (PHELAN): 1 = does not enter airway 2 = enters airway/above vocal folds/ejected 3 = enters airway/above vocal folds/not ejected 4 = enters airway/contacts vocal folds/ejected 5 = enters airway/contacts vocal folds/not ejected 6 = enters airway/below vocal folds/ejected 7 = enters airway/below vocal folds/not ejected despite effort 8 = enters airway/below vocal folds/no effort VIDEOFLOROSCOPIC SCALE SCORE (PHELAN): Grade I = aspiration of material that has penetrated into the laryngeal vestibule, intact cough reflex Grade II = aspiration < 10 % of the bolus, intact cough reflex Grade III = aspiration of < 10 % of the bolus, reduced cough reflex or aspiration of > 10 % of the bolus, intact cough reflex Grade IV = aspiration of > 10 % of the bolus, reduced cough reflex Penetration-Aspiration Scale Score Thin Liquid via teaspoon: Result: 2= enter airway/above vocal folds/ejected Thin Liquid via teaspoon Trial 2: Result: 2= enter airway/above vocal folds/ejected Thin Liquid via single sip: straw: Result: 1= does not enter airway Thin Liquid via sequential sips:straw: Result: 5= enters airways/contacts vocal folds/not ejected Comment: Cued a hard cough and re-swallow due to absent reflexive cough or throat clear. Cough was not effective in expelling trace barium contrast from the laryngeal vestibule. [place] Thick Liquid via small single sip: cup: Result: 1= does not enter airway Pudding via teaspoon: Result: 1= does not enter airway Comment: Esophageal screen - Retention in the lower esophagus w/ retrograde flow to the middle esophagus. Thin Liquid via single sip: straw Trial 2: Result: 1= does not enter airway 1/2 Cookie: Result: 1= does not enter airway Thin Liquid via single sip: straw Trial 3: Result: 4= enters airway/contacts vocal folds/ejected Comment: Large sip Thin Liquid via single sip: straw Effortful swallow: Result: 2= enter airway/above vocal folds/ejected Oral Phase Labial Seal: Escape beyond interlabial space; no extension beyond sharon border Tongue Control During Bolus Hold: Posterior escape of greater than half of bolus Bolus Preparation/Mastication: Slow prolonged chewing/mashing with complete recollection Bolus Transport/Lingual Motion: Slowed tongue motion Oral Residue: Majority of bolus remaining (Piecemeal deglutition) Pharyngeal Phase Initiation of Pharyngeal Swallow: Bolus head in pyriforms Soft Palate Elevation: Trace column of contrast/air between soft palate and pharyngeal wall Laryngeal Elevation: Partial superior movement thyroid cart/partial apprx aryt-epig petiole Anterior Hyoid Excursion: Partial anterior movement Epiglottic Movement: Complete inversion Laryngeal Vestibule Closure at Height of Swallow: Incomplete; narrow column of air/contrast in laryngeal vestibule Pharyngeal Stripping Wave: Present - complete Pharyngoesophageal Segment Opening: Parital distension and partial duration; parital obstruction of flow (trace barium in UES) Tongue Base Retraction: Trace column of contrast between tongue base & post. pharyngeal wall Pharyngeal Residue: Trace residue within or on pharyngeal structures Esophageal Phase Esophageal Clearance: Esophageal retention w/ retrograde flow below pharyngoesophageal seg. Treatment Strategies Effects of treatment strategies attemped:: Decreased bolus rate = somewhat effective. Effortful swallow = effective. Cued cough and re-swallow = not effective. Liquid wash = mostly effective. Diagnosis/Impression Diagnosis: Moderate oropharyngeal dysphagia R13.12 Impression: The oral phase is marked by... -Slowed tongue motion for A-P transport contributed to decreased bolus control w/ posterior loss of >1/2 the bolus (liquids and pudding) to the pharynx prior to swallow onset. -Slowed, but complete mastication of cookie. -Piecemeal deglutition of cookie. The pharyngeal phase is marked by... -Delayed swallow onset, but overall good pharyngeal motility. -Decreased airway closure during the swallow due to decreased anterior hyoid excursion and laryngeal elevation. Laryngeal penetration of sequential sips of thin liquids to the vocal folds that did not fully eject and with no reflexive cough. Laryngeal penetration of large sip of thin liquids via straw that did fully eject. -Mildly reduced UES opening/duration of opening w/ only trace residues in the UES and pyriform sinuses, which was most noticeable w/ pudding trial. Recommendations Diet: Soft and Bite Sized Textures and Thin Liquids Comment: Oral care after meals, Tongue/finger sweep for R sided pocketing Compensatory Strategies: Small Bites, Small Sips (Sips by straw w/ L sided placement, Sips one at a time, Hard/effortful swallows), Slow Rate, Alternate bites/solids and sips/liquids, Sitting upright and Remain sitting upright for 30 minutes after PO intake Supervision: Distant Supervision Recommend Repeat Modified Barium Swallow: TBD Need for Skilled Speech Therapy Services: Yes Comment: -Train the patient in use of strategies to decrease risk for aspiration and reflux aspiration. -Ongoing assessment of diet tolerance of recommended textures. Pt currently likes soft and bite size textures as regular textures are very effortful due to oral phase deficits. Ok to advance diet at bedside after further trials w/ [employer]CH[employer]IC as the patient wishes to advance diet textures. He has very good awareness of his pocketing, and lingual sweep is very effective in clearing pocketing. -Train the patient in oropharyngeal exercise program to improve bolus control, airway closure, and swallow onset (lingual resistance, Shonda, effortful), as well as oral motor exercises to promote improved labial seal and tongue strength/coordination. -No immediate GI consult recommended; however, if increased concern for s/s of reflux, will recommend consideration for GI involvement in pt's care team. Education Completed: 1. Described result of evaluation., 2. Pt understands evaluation & agrees with goals and treatment plan. and 7. Pt requires further education on strategies & risks. Status Active ST Patient: Active Contact Information [facility]:: Melissa Raya M.A. CCC-CUPOLA MECHANIC? Speech-Language Pathologist?? [facility] [id number] [place] [address]? [email or web address]?? [phone]
--- NOTE | 2025-01-15 11:56 | STROKE.CONS ---
Assessment and Plan: Stroke Assessment/Plan 64M w/ DM, CAD s/p stents, colon cancer, HTN, and HLD who is allergic to statins who presents with right sided weakness. Went to bed around 11pm the day of admission and was fine and woke up at 130am with these symptoms. Never happened before so came the ED. CTH/CTA neg. NIH 9. SBP 140. He came in right at the very end of tnk window and unfortunately could not get it within the window. His MRI brain confirmed an acute left pontine ischemic stroke which is likely small vessel. TTE unrevealing. LDL 107. A1c 7.5. Cont ASA 81, he is on statin and tolerating fine can continue, cont cv risk factor optimzation, would do a 30d event monitor just to be thorough, PT/OT, will need to follow up with pcp and neuro after dc. No further recs. Please reachout for any questions or concerns. Stroke to sign off. HPI Consult Data Date of Consult: 01/15/25 HPI Narrative HPI Narrative: 64M w/ DM, CAD s/p stents, colon cancer, HTN, and HLD who is allergic to statins who presents with right sided weakness. Went to bed around 11pm the day of admission and was fine and woke up at 130am with these symptoms. Never happened before so came the ED. CTH/CTA neg. NIH 9. SBP 140. He came in right at the very end of tnk window and unfortunately could not get it within the window. His MRI brain confirmed an acute left pontine ischemic stroke which is likely small vessel. TTE unrevealing. LDL 107. A1c 7.5. Cont ASA 81, he is on statin and tolerating fine can continue, cont cv risk factor optimzation, would do a 30d event monitor just to be thorough, PT/OT, will need to follow up with pcp and neuro after dc. [facility] Medical History Essential hypertension Hypothyroidism History of colon cancer History of non-ST elevation myocardial infarction (NSTEMI) (10/24/18) Type 2 diabetes mellitus Obesity RLS (restless legs syndrome) GERD (gastroesophageal reflux disease) Atherosclerotic heart disease of [place] coronary artery without angina pectoris ACS (acute coronary syndrome) (10/24/18) Home Medications ?Medication ?Instructions ?Recorded ?Last Taken ?Type ergocalciferol (vitamin D2) 1,250 50,000 mg PO WE vitamin 10/24/18 10/17/18 History mcg (50,000 unit) capsule latanoprost 0.005 % eye drops 0.005 drp EACH EYE QHS glaucoma 10/24/18 10/23/18 History multivitamin 1 ea PO DAILY vitamin 10/24/18 10/23/18 History aspirin 81 mg tablet,delayed 81 mg PO DAILY@0800 10/25/18 Unknown Rx release pantoprazole 40 mg tablet,delayed 40 mg PO DAILY 12/09/19 Unknown History release levothyroxine 50 mcg tablet 50 mcg PO DAILY 02/22/21 Unknown History metoprolol tartrate 25 mg tablet 12.5 mg (1/2 x 25 mg) PO BID #90 03/12/23 Unknown Rx tabs metformin 500 mg tablet 750 mg PO BID diabetes 03/18/24 Unknown History nitroglycerin 0.4 mg sublingual 0.4 mg sublingual Q5-15M PRN chest 05/13/24 Unknown Rx tablet pain #25 tabs losartan 50 mg tablet 50 mg PO DAILY #90 tabs 09/29/24 Unknown Rx Allergy/AdvReac Type Severity Reaction Status Date / Time atorvastatin AdvReac Intermediate Acid reflux Verified 01/14/25 03:03 rosuvastatin (From Crestor) AdvReac Intermediate Acid Verified 01/14/25 03:03 reflux, cough Family History Grandmother CAD (coronary artery disease) Sister Pulmonary embolism Mother Autoimmune hepatitis Family History other Surgical History History of partial colectomy History of ileostomy History of coronary artery stent placement (10/24/18) Social History household members: spouse Smoking Status: Current some day smoker tobacco type: cigars how long ago did patient quit smoking: Notes remotely quit cigarette tobacco use (before 1984), occasional cigar. alcohol intake: current alcohol intake frequency: holidays/special occasions only substance use type: does not use Vital Signs Vital Signs Vital Signs: 01/14/25 13:46 01/14/25 15:00 01/14/25 17:00 Temperature Temperature Source Pulse Rate 69 71 67 Pulse Strength Respiratory Rate 16 13 Blood Pressure 150/86 H 150/92 H Blood Pressure Mean 104 111 Blood Pressure Source Monitor Monitor Blood Pressure Position Blood Pressure Location Pulse Ox 97 97 Oxygen Delivery Method Room Air Room Air 01/14/25 19:36 01/14/25 21:00 01/14/25 22:00 Temperature 97.9 F Temperature Source Oral Pulse Rate 68 Pulse Strength Normal (2+) Respiratory Rate 25 H Blood Pressure 148/92 H Blood Pressure Mean 110 Blood Pressure Source Monitor Blood Pressure Position Semi-Fowlers Blood Pressure Location Left Arm Pulse Ox 94 98 Oxygen Delivery Method Room Air Room Air 01/15/25 01:00 01/15/25 05:00 01/15/25 07:00 Temperature 97.6 F L 97.6 F L Temperature Source Oral Oral Pulse Rate 64 66 67 Pulse Strength Respiratory Rate 18 16 Blood Pressure 140/87 H 156/100 H Blood Pressure Mean 104 118 Blood Pressure Source Monitor Monitor Blood Pressure Position Semi-Fowlers Semi-Fowlers Blood Pressure Location Left Arm Left Arm Pulse Ox 97 99 Oxygen Delivery Method Room Air Room Air 01/15/25 08:34 01/15/25 08:45 Temperature Temperature Source Pulse Rate 76 Pulse Strength Normal (2+) Respiratory Rate 21 H Blood Pressure 150/82 H Blood Pressure Mean 102 Blood Pressure Source Monitor Blood Pressure Position Blood Pressure Location Pulse Ox 98 Oxygen Delivery Method Room Air Weight Weight: 118.4 kg Body Mass Index (BMI) 36.5 EEG Results Procedure Details EEG Procedure Details: WALDO MURRAY is a 64 year old M with a past medical history of , who presents for evaluation of Electroencephalogram on DATE at TIME Physical Exam Narrative - General: NAD, pleasant, cooperative, well nourished, well developed - Head/Eyes: Atraumatic, normocephalic, clear cornea, normal sclera/conjunctive - Neuro: ? Mental Status: AAOX4 & following simple commands. ? Speech: Dysarthria but no aphasia ? CN II: Visual kennedy are full to confrontation. ? CN III, IV, : EOMI, no gaze preference, no nystagmus, no ptosis ? CN V: Facial sensation is intact to light touch throughout. ? CN VII: Face with mild right facial droop ? CN VII: Hearing is grossly normal to conversational speech. ? Motor: Left side no issues, right arm no movement, right leg can wiggle fingers ? Sensation: Normal to light touch bilaterally. ? Coordination: Normal FTN & HTS on left, right side cannot be tested NIH = 9 Lab / Micro Data 01/15/25 10:17 01/15/25 10:17 Labs: Laboratory Results - last 24 hr 01/14/25 13:19: POC Glucose 126 H 01/14/25 16:43: POC Glucose 130 H 01/14/25 21:09: POC Glucose 150 H 01/15/25 06:31: POC Glucose 126 H 01/15/25 10:17: WBC 9.5, RBC 4.79, Hgb 12.2 L, Hct 37.8 L, MCV 78.9 L, MCH 25.5 L, MCHC 32.3, RDW Std Deviation 43.2, RDW Coeff of Severiano 15.0 H, Plt Count 276, MPV 9.9, Sodium 138, Potassium 4.0, Chloride 106, Carbon Dioxide 21.4, Anion Gap 11, BUN 8, Creatinine 0.77, Estim Creat Clear Calc 130.20, Est GFR (MDRD) Non-Af 101, BUN/Creatinine Ratio 10.0, Glucose 194 H, Calcium 8.7, Phosphorus 2.3 L, Magnesium 2.2, Total Bilirubin 0.31, AST 42 H, ALT 40, Alkaline Phosphatase 66, Total Protein 6.6, Albumin 3.7, Globulin 2.9, Albumin/Globulin Ratio 1.3 Imaging Radiology Impression Brain MRI 01/14/25 05:08 IMPRESSION: 1. Acute left pontine infarction. 2. Other findings as noted. Findings were called to the [place] [facility] on the afternoon of 01/14/2025 at 1:15 p.m. Reading Location: [id number] Active Medications Active Medications Active Medications: Current Medications Generic Name Dose Route Start Last Admin Trade Name Freq PRN Reason Stop Dose Admin Acetaminophen 650 mg 01/14/25 05:08 Acetaminophen 325 Mg Tablet PO Q4H PRN PRN Fever, pain 1-05/22 Al Hydroxide/Mg Hydroxide 30 ml 01/14/25 05:08 Mag Hydrox/Al Hydrox/Simeth 30 Ml Udc PO Q6H PRN PRN Gastric Burning Albuterol Sulfate 2.5 mg 01/14/25 05:08 Albuterol 2.5 Mg/3 Ml Vial.Neb. INHALATION Q2H PRN PRN Dyspnea, wheezing Aspirin 81 mg 01/14/25 08:00 01/15/25 09:41 Aspirin E.C. 81 Mg Tablet PO 81 mg BREAKFAST CANDELARIA Administration Atorvastatin Calcium 40 mg 01/15/25 22:00 Atorvastatin Calcium 40 Mg Tablet PO QHS CANDELARIA Enoxaparin Sodium 40 mg 01/14/25 10:00 01/15/25 09:40 Enoxaparin 40 Mg/0.4 Ml Syringe SC 40 mg DAILY CANDELARIA Administration Glucagon 1 mg 01/14/25 05:08 Glucagon 1 Mg/Ml Syringe IM X1 PRN HYPOGLYCEMIA Protocol Guaifenesin 20 ml 01/14/25 05:08 Guaifenesin 10 Ml Udc (200mg/10ml) PO Q4H PRN PRN COUGH Sodium Chloride 1,000 mls @ 100 mls/hr 01/14/25 03:35 01/15/25 09:39 IV Not Given .Q10H CANDELARIA Dextrose 250 mls @ 0 mls/hr 01/14/25 05:08 Dextrose 10%-Water IV .Q0M PRN HYPOGLYCEMIA Protocol As Directed Sodium Chloride 250 mls @ 15 mls/hr 01/14/25 05:53 IV .[id number] PRN Saline Flush Sodium Chloride 250 mls @ 15 mls/hr 01/14/25 05:53 IV .[id number] PRN Additional IVPB Infusion Insulin Human Lispro 0 unit 01/14/25 07:00 01/15/25 06:40 Insulin Lispro 100 Unit/Ml Insuln.Pen SC Not Given ACHS CANDELARIA Protocol Latanoprost 0.005 drp 01/14/25 22:00 01/14/25 21:30 Latanoprost 0.005% 1 Bottle EACH EYE 0.005 drp QHS CANDELARIA Administration Levothyroxine Sodium 50 mcg 01/14/25 06:00 01/15/25 05:09 Levothyroxine 50 Mcg Tablet PO 50 mcg DAILY@0600 CANDELARIA Administration Melatonin 3 mg 01/14/25 05:08 Melatonin 3 Mg Tablet PO QHS PRN PRN INSOMNIA Ondansetron HCl 4 mg 01/14/25 05:08 Ondansetron 4 Mg/2 Ml Vial IV Q8H PRN PRN NAUSEA/VOMITING Pantoprazole Sodium 40 mg 01/14/25 10:00 01/15/25 09:40 Pantoprazole Sodium 40 Mg Tablet PO 40 mg DAILY CANDELARIA Administration Paroxetine HCl 10 mg 01/14/25 13:40 01/15/25 09:40 Paroxetine 10 Mg Tablet PO 10 mg DAILY CANDELARIA Administration Prochlorperazine Edisylate 5 mg 01/14/25 05:08 Prochlorperazine 10 Mg/2 Ml Vial IV Q4H PRN PRN Breakthrough Nausea/Vomiting Senna/Docusate Sodium 2 tablet 01/14/25 05:08 Senna/Docusate Sodium 1 Tablet PO BID PRN PRN Constipation Sodium Chloride 10 - 40 ml 01/14/25 05:53 0.9% Saline Lock 10 Ml Syringe IV UD PRN SALINE FLUSH Tizanidine HCl 4 mg 01/14/25 09:18 01/14/25 21:29 Tizanidine Hcl 2 Mg Tablet PO 4 mg Q8H PRN PRN Administration MUSCLE SPASM NIHSS NIHSS Nursing Documentation NIHSS Nursing Documentation: NIHSS: Ischemic Stroke/TIA Start: 01/14/25 05:08 Text: For PCU Patients: NIH and Neuro Check every 4 Status: Active hours, PRN and with change in RN caregiver. Freq: Q4H Protocol: Activity Type Activity Date Activity User E-sign Co-sign Detail Recorded Client Recorded Date Recorded By Document 01/15/25 08:46 CD [id number] 01/15/25 08:48 CD 01/15/25 08:46 NIH Stroke Scale [NIHSS] A score of 0 is normal or asymptomatic . Total possible score is 42. Inpatient: RN or Physician to activate a stroke alert for onset of new stroke symptoms or with NIHSS increase >/= 3 points. Following change in neurological status, NIHSS will be performed per physician order or more frequently PRN. -1a. Level of Consciousness 0 - Alert; keenly responsive -1b. LOC Questions 0 - Answers BOTH questions correctly -1c. LOC Commands 0 - Performs BOTH tasks correctly -2. Best Gaze 0 - Normal -3. Visual 0 - No visual loss -4. Facial Palsy 1 - Minor paralysis ( flattened nasolabial fold , asymmetry on smiling) -5a. Left Arm 0 - No drift; arm holds 90 ( or 45) degrees for full 10 seconds -5b. Right Arm 3 - No effort against gravity ; arm falls -6a. Left Leg 0 - No drift; leg holds 30- degree position for full 5 seconds -6b. Right Leg 3 - No effort against gravity ; leg falls to bed immediately -7. Limb Ataxia 1 - Present in 1 limb -8. Sensory 0 - Normal; no sensory loss -9. Best Language 0 - No aphasia; normal -10. Dysarthria 1 = Mild-to- moderate dysarthria; -11. Extinction and Inattention 0 - No abnormality -Total 9 Query Text:A score of 0 is normal or asymptomatic. Total possible score is 42 . ED: Notify Physician for NIHSS increase by > / = 3 points. Inpatient: RN or Physician to activate a stroke alert for NIHSS increase of > / = 3 points.
--- NOTE | 2025-01-15 12:11 | CASEMGMT ---
Addendum entered by Belle Arthur 01/15/25 12:56: Social Work Inpatient Rehab is able to accept pt. Precert started at this time. SW met with pt and and notified, both are agreeable. Plan: Inpatient Rehab, pending precROMEO Tanner Original Note: Social Work Referral made to [facility] inpatient rehab yesterday. Follow up call at this time with Fatemeh in admissions requesting status of referral. Pt will need accepted to and will need precert prior to discharge. Plan: Inpatient Rehab, pending acceptance and ROMEO Levine
[2025-01-15 12:18] LABS: Bedside Glucose 150 mg/dL (74-106)
[2025-01-15 17:23] LABS: Bedside Glucose 103 mg/dL (74-106)
[2025-01-15] MEDS: tiZANidine HCl 2 MG Tablet 4 MG PO (19:57)
[2025-01-15] MEDS: Latanoprost 0.005% 1 Bottle 0.005 DRP EACH EYE (21:32)
[2025-01-15] MEDS: Atorvastatin Calcium 40 MG Tablet PO (21:32)
[2025-01-15 21:52] LABS: Bedside Glucose 116 mg/dL (74-106)
[2025-01-16] VITALS: BP 160/77; PULSE 82; RESP 19; O2SAT 100
[2025-01-16] MEDS: 0.9% Normal Saline (1000mL) 1,000 ML 100 ML IV (01:26)
[2025-01-16 01:45] VITALS: O2SAT 97
[2025-01-16] MEDS: MELATONIN 3 MG TABLET PO (01:51)
[2025-01-16 04:00] VITALS: BP 177/96; PULSE 70; RESP 13; O2SAT 98
[2025-01-16] MEDS: Levothyroxine 50 MCG Tablet PO (05:13)
[2025-01-16 05:17] VITALS: BMI 36.9
[2025-01-16 07:36] LABS: Absolute Lymphocyte Count 1.56 X10^3/uL (0.83-4.51); Absolute Neutrophil Count 7.3 X10^3/uL (2.0-7.7); Basophil# 0.06 X10^3/uL; Basophil% 0.6 % (0-1); Eosinophil# 0.19 X10^3/uL; Eosinophils% 1.9 % (0-5); Hemoglobin 11.9 g/dL (13.0-16.5); Lymphocyte # 1.56 X10^3/ul (0.83-4.51); Lymphocyte % 15.9 % (19-41); Mean Corp Hgb Conc 32.2 g/dL (32-36); Mean Corpuscular Hgb 25.7 pg (27.0-32.0); Mean Corpuscular Volume 79.9 fL (80-94); Mean Platelet Vol. 10.1 fl (6.2-12.0); Monocyte# 0.62 X10^3/uL; Monocyte% 6.3 % (0-10); NRBC Flagged by Analyzer 0 % (0-5); Neutrophil # 7.33 X10^3/uL (2.7-7.7); Platelet Count 271 K/mm3 (150-450); RBC Distribution Width CV 14.9 % (11.6-14.6); RBC Distribution Width SD 43.6 fl (35.1-43.9); Red Blood Count 4.63 M/mm3 (4.6-6.2); White Blood Count 9.8 K/mm3 (4.4-11.0)
--- NOTE | 2025-01-16 07:39 | PCM.PN.HOSP ---
Reason for Visit Reason for Visit: Diagnoses Cerebral infarction, unspecified (01/14/25) Objective Data Objective Data Vital Signs: Vital Signs Temp Pulse Resp BP Pulse Ox O2 Del Method 97.6 F L 70 13 177/96 H 98 Room Air 01/15/25 05:00 01/16/25 04:00 01/16/25 04:00 01/16/25 04:00 01/16/25 04:00 01/16/25 04:00 Oxygen Delivery Method Room Air Weight: 119.7 kg Body Mass Index (BMI) 36.9 Intake & Output: Intake and Output for Last 24 Hours 01/14/25 01/15/25 01/16/25 23:59 23:59 23:59 Intake Total 1950 / 1950 2760 / 2760 1000 / 1000 Output Total 900 / 900 2800 / 2800 1125 / 1125 Balance 1050 / 1050 -40 / -40 -125 / -125 Lab / Micro Data 01/16/25 07:15 01/15/25 10:17 Labs: Laboratory Results - last 24 hr 01/15/25 10:17: WBC 9.5, RBC 4.79, Hgb 12.2 L, Hct 37.8 L, MCV 78.9 L, MCH 25.5 L, MCHC 32.3, RDW Std Deviation 43.2, RDW Coeff of [place] 15.0 H, Plt Count 276, MPV 9.9, Sodium 138, Potassium 4.0, Chloride 106, Carbon Dioxide 21.4, Anion Gap 11, BUN 8, Creatinine 0.77, Estim Creat Clear Calc 130.20, Est GFR (MDRD) Non-Af 101, BUN/Creatinine Ratio 10.0, Glucose 194 H, Calcium 8.7, Phosphorus 2.3 L, Magnesium 2.2, Total Bilirubin 0.31, AST 42 H, ALT 40, Alkaline Phosphatase 66, Total Protein 6.6, Albumin 3.7, Globulin 2.9, Albumin/Globulin Ratio 1.3 01/15/25 11:59: POC Glucose 150 H 01/15/25 17:02: POC Glucose 103 01/15/25 21:31: POC Glucose 116 H 01/16/25 07:15: WBC 9.8, RBC 4.63, Hgb 11.9 L, Hct 37.0 L, MCV 79.9 L, MCH 25.7 L, MCHC 32.2, RDW Std Deviation 43.6, RDW Coeff of [place] 14.9 H, Plt Count 271, MPV 10.1, Immature Gran % (Auto) 0.300, Neut % (Auto) 75.0 H, Lymph % (Auto) 15.9 L, [place] % (Auto) 6.3, Eos % (Auto) 1.9, Baso % (Auto) 0.6, Absolute Neuts (auto) 7.3, Absolute Lymphs (auto) 1.56, Nucleated RBC % 0 Physical Exam Narrative GENERAL:dysarthric HEENT: Atraumatic; normocephalic EYES; Anicteric, Normal Conjunctiva NECK; supple, normal thyroid, RESPIRATORY: Diminished to auscultation CARDIOVASCULAR: Regular S1 S2, GI: soft, normoactive bowel sounds, : No Renal angle tenderness; EXTREMITIES: No edema, no clubbing, MUSCULOSKELETAL: no muscle wasting NEURO: Awake; weakness involving the right upper SKIN: No Rash PSYCH; Flat affect Assessment & Plan Assessment/Plan (1) Acute cerebrovascular accident (CVA): PLAN: Plan Patient is a 64-year-old gentleman who presented with right-sided weakness facial droop slurred speech 1. Acute CVA ? Patient presented with right-sided hemiplegia with dysarthria and facial droop. Initial imaging studies with CT of the head and CTA of the head and neck unremarkable. Patient has been admitted to a monitored bed neurochecks ordered. Subsequently ordered lipid panel, 2D echo MRI and neurology consultation ? 01/15/2025; MRI demonstrated acute pontine infarction.2D echo demonstrated normal LV function with EF of 65% with hypermobile intra atrial septum bubble contrast study nondiagnostic for PFO/ASD. [facility]. Patient remains on antiplatelet therapy with aspirin, started patient on atorvastatin 2. Coronary artery disease with previous non-STEMI status post PCI to the mid circumflex and distal third obtuse lesion. Patient is on guideline directed medical therapy 3. History of colon cancer ? Status post colectomy with end ileostomy patient has since remained in remission 4. Class II obesity with BMI of 36.3 ? Complicating care weight loss advised 5. Diabetes mellitus type II -patient's oral hypoglycemics held. Placed on long acting insulin, Accu-Cheks a.c. and at bedtime and covered with sliding scale insulin 6. Dyslipidemia ?Patient is on statin therapy, continued at home dose 7. Hypertension ? Blood pressure controlled, with patient presenting with strokelike symptoms permissive hypertension protocol is being followed 8. Hypothyroidism ? Patient is on levothyroxine home dose continued 9. GERD ? On PPI 10. DVT prophylaxis ? Subcu Lovenox 11. Depression ? Started patient on Paxil Time spent in the patient's overall evaluation,decision-making process, review of diagnostic data, adjustment of management, discussion with other providers, nursing nursing and ancillary staff involved in patient's care documentation, 40 Minutes NIHSS NIHSS Nursing Documentation NIHSS Nursing Documentation: NIHSS: Ischemic Stroke/TIA Start: 01/14/25 05:08 Text: For PCU Patients: NIH and Neuro Check every 4 Status: Active hours, PRN and with change in RN caregiver. Freq: Q4H Protocol: Activity Type Activity Date Activity User E-sign Co-sign Detail Recorded Client Recorded Date Recorded By Document 01/16/25 05:00 TD [id number] 01/16/25 05:12 TD 01/16/25 05:00 NIH Stroke Scale [NIHSS] A score of 0 is normal or asymptomatic . Total possible score is 42. Inpatient: RN or Physician to activate a stroke alert for onset of new stroke symptoms or with NIHSS increase >/= 3 points. Following change in neurological status, NIHSS will be performed per physician order or more frequently PRN. -1a. Level of Consciousness 0 - Alert; keenly responsive -1b. LOC Questions 0 - Answers BOTH questions correctly -1c. LOC Commands 0 - Performs BOTH tasks correctly -2. Best Gaze 0 - Normal -3. Visual 0 - No visual loss -4. Facial Palsy 1 - Minor paralysis ( flattened nasolabial fold , asymmetry on smiling) -5a. Left Arm 0 - No drift; arm holds 90 ( or 45) degrees for full 10 seconds -5b. Right Arm 3 - No effort against gravity ; arm falls -6a. Left Leg 0 - No drift; leg holds 30- degree position for full 5 seconds -6b. Right Leg 3 - No effort against gravity ; leg falls to bed immediately -7. Limb Ataxia 2 - Present in 2 limbs -8. Sensory 0 - Normal; no sensory loss -9. Best Language 0 - No aphasia; normal -10. Dysarthria 1 = Mild-to- moderate dysarthria; -11. Extinction and Inattention 0 - No abnormality -Total 10 Query Text:A score of 0 is normal or asymptomatic. Total possible score is 42 . ED: Notify Physician for NIHSS increase by > / = 3 points. Inpatient: RN or Physician to activate a stroke alert for NIHSS increase of > / = 3 points.
[2025-01-16 08:00] VITALS: BP 153/96; PULSE 74; RESP 18; TEMP 36.6; O2SAT 97
[2025-01-16 08:43] VITALS: O2SAT 97
--- NOTE | 2025-01-16 08:43 | PCM.DC.SUM ---
Providers Date of Admission: 01/14/25 Date of Discharge: 01/16/25 Primary Care Physician: Dr. Joi Gill MD Consultations 01/14/25 05:08 Consult: Tele-Neurology Routine Consulting Provider: [facility] Reason for Consult: Acute Ischemic Stroke/TIA EMERGENT Consult: No Notified: Yes Date Notified: 01/14/25 Time Notified: 07:47 Method of Notification: Answering Service Nursing Unit Staff Notify [facility] of Tele-Neurology Consult: Yes 01/15/25 09:37 Tele [Consult: Tele-Neurology] Routine Consulting Provider: [facility] Reason for Consult: cva EMERGENT Consult: No Notified: Yes Date Notified: 01/15/25 Time Notified: 09:54 Method of Notification: Answering Service Method of Consult:: Telemedicine Nursing Unit Staff Notify [facility] of Tele-Neurology Consult: Yes Reason For Visit: CVA Diagnosis Discharge Diagnosis (1) Acute cerebrovascular accident (CVA): Status: Acute Code(s): I63.9 - Cerebral infarction, unspecified Plan Patient is a 64-year-old gentleman who presented with right-sided weakness facial droop slurred speech 1. Acute CVA ? Patient presented with right-sided hemiplegia with dysarthria and facial droop. Initial imaging studies with CT of the head and CTA of the head and neck unremarkable. Patient has been admitted to a monitored bed neurochecks ordered. Subsequently ordered lipid panel, 2D echo MRI and neurology consultation ? 01/15/2025; MRI demonstrated acute pontine infarction.2D echo demonstrated normal LV function with EF of 65% with hypermobile intra atrial septum bubble contrast study nondiagnostic for PFO/ASD. Consult placed to [facility]. Patient remains on antiplatelet therapy with aspirin, started patient on atorvastatin ? 01/16/2025 patient was discharged to inpatient rehab once insurance precertification was obtained. An order was given for patient to be discharged with a 30-day event monitor. An order was also placed for patient to follow-up with neurology as outpatient 2. Coronary artery disease -with previous non-STEMI status post PCI to the mid circumflex and distal third obtuse lesion. Patient is on guideline directed medical therapy 3. History of colon cancer ? Status post colectomy with end ileostomy patient has since remained in remission 4. Class II obesity with BMI of 36.3 ? Complicating care weight loss advised 5. Diabetes mellitus type II -patient's oral hypoglycemics held. Placed on long acting insulin, Accu-Cheks a.c. and at bedtime and covered with sliding scale insulin 6. Dyslipidemia ?Patient is on statin therapy, continued at home dose 7. Hypertension ? Blood pressure controlled, with patient presenting with strokelike symptoms permissive hypertension protocol is being followed 8. Hypothyroidism ? Patient is on levothyroxine home dose continued 9. GERD ? On PPI 10. DVT prophylaxis ? Subcu Lovenox 11. Depression ? Started patient on Paxil Time spent in the patient's overall evaluation,decision-making process, review of diagnostic data, adjustment of management, discussion with other providers, nursing nursing and ancillary staff involved in patient's care documentation, 35 minutes Medications at Discharge Home Medications ergocalciferol (vitamin D2) 1,250 mcg (50,000 unit) capsule 50,000 mg PO WE vitamin 10/24/18 latanoprost 0.005 % eye drops 0.005 drp EACH EYE QHS glaucoma 10/24/18 multivitamin 1 ea PO DAILY vitamin 10/24/18 aspirin 81 mg tablet,delayed release 81 mg PO DAILY@0800 10/25/18 pantoprazole 40 mg tablet,delayed release 40 mg PO DAILY 12/09/19 levothyroxine 50 mcg tablet 50 mcg PO DAILY 02/22/21 metoprolol tartrate 25 mg tablet 12.5 mg (1/2 x 25 mg) PO BID #90 tabs 03/12/23 metformin 500 mg tablet 750 mg PO BID diabetes 03/18/24 nitroglycerin 0.4 mg sublingual tablet 0.4 mg sublingual Q5-15M PRN chest pain #25 tabs 05/13/24 losartan 50 mg tablet 50 mg PO DAILY #90 tabs 09/29/24 acetaminophen 325 mg tablet 650 mg (2 x 325 mg) PO Q4H PRN PRN Fever, pain 1-05/22 #0 tabs 01/16/25 albuterol sulfate 2.5 mg/3 mL (0.083 %) solution for nebulization 2.5 mg (3 mL) inhalation Q2H PRN PRN Dyspnea, wheezing #0 mL 01/16/25 aluminum-mag hydroxide-simethicone 400 mg-400 mg-40 mg/5 mL oral susp (Mag-Al Plus Extra Strength) 30 ml PO Q6H PRN PRN Gastric Burning #0 mL 01/16/25 atorvastatin 40 mg tablet 40 mg PO QHS #0 tabs 01/16/25 enoxaparin 40 mg/0.4 mL subcutaneous syringe 40 mg (0.4 mL) subcut DAILY #0 mL 01/16/25 insulin lispro 100 unit/mL subcutaneous pen (Humalog KwikPen (U-100) Insulin) See Protocol subcut ACHS #0 mL 01/16/25 melatonin 3 mg tablet 3 mg PO QHS PRN PRN Insomnia #0 tabs 01/16/25 paroxetine HCl 10 mg tablet 10 mg PO DAILY #0 tabs 01/16/25 sennosides 8.6 mg-docusate sodium 50 mg tablet (Stimulant Laxative Plus) 2 tab PO BID PRN PRN Constipation #0 tabs 01/16/25 tizanidine 2 mg tablet 4 mg (2 x 2 mg) PO Q8H PRN PRN Muscle Spasm #0 tabs 01/16/25 Physical Exam Narrative GENERAL:dysarthric HEENT: Atraumatic; normocephalic EYES; Anicteric, Normal Conjunctiva NECK; supple, normal thyroid, RESPIRATORY: Diminished to auscultation CARDIOVASCULAR: Regular S1 S2, GI: soft, normoactive bowel sounds, : No Renal angle tenderness; EXTREMITIES: No edema, no clubbing, MUSCULOSKELETAL: no muscle wasting NEURO: Awake; weakness involving the right upper SKIN: No Rash PSYCH; Flat affect Weight / BMI Weight Weight: 119.7 kg Body Mass Index (BMI) 36.9 ABG / Lab / Microbiology Data 01/16/25 07:15 01/15/25 10:17 Laboratory: Laboratory Results - last 24 hr 01/15/25 10:17: WBC 9.5, RBC 4.79, Hgb 12.2 L, Hct 37.8 L, MCV 78.9 L, MCH 25.5 L, MCHC 32.3, RDW Std Deviation 43.2, RDW Coeff of [place] 15.0 H, Plt Count 276, MPV 9.9, Sodium 138, Potassium 4.0, Chloride 106, Carbon Dioxide 21.4, Anion Gap 11, BUN 8, Creatinine 0.77, Estim Creat Clear Calc 130.20, Est GFR (MDRD) Non-Af 101, BUN/Creatinine Ratio 10.0, Glucose 194 H, Calcium 8.7, Phosphorus 2.3 L, Magnesium 2.2, Total Bilirubin 0.31, AST 42 H, ALT 40, Alkaline Phosphatase 66, Total Protein 6.6, Albumin 3.7, Globulin 2.9, Albumin/Globulin Ratio 1.3 01/15/25 11:59: POC Glucose 150 H 01/15/25 17:02: POC Glucose 103 01/15/25 21:31: POC Glucose 116 H 01/16/25 07:15: WBC 9.8, RBC 4.63, Hgb 11.9 L, Hct 37.0 L, MCV 79.9 L, MCH 25.7 L, MCHC 32.2, RDW Std Deviation 43.6, RDW Coeff of [place] 14.9 H, Plt Count 271, MPV 10.1, Immature Gran % (Auto) 0.300, Neut % (Auto) 75.0 H, Lymph % (Auto) 15.9 L, [place] % (Auto) 6.3, Eos % (Auto) 1.9, Baso % (Auto) 0.6, Absolute Neuts (auto) 7.3, Absolute Lymphs (auto) 1.56, Nucleated RBC % 0, Sodium Cancelled, Potassium Cancelled, Chloride Cancelled, Carbon Dioxide Cancelled, Anion Gap Cancelled, BUN Cancelled, Creatinine Cancelled, Estim Creat Clear Calc Cancelled, Est GFR (MDRD) Non-Af Cancelled, BUN/Creatinine Ratio Cancelled, Glucose Cancelled, Calcium Cancelled D/C Instructions Discharge Diet: Low fat / Low cholesterol and 1800 Calorie Control Diet Discharge Activity: Return to Normal Activity Call your doctor if you observe: Fever of 101 or Higher, Shortness of breath, Fainting spells and Chest pain DC O2, CPAP, BIPAP Needs Home O2 Discharge instructions: No Meaningful Use Info Meaningful Use Meaningful Use Diagnoses (Choose all that apply): Ischemic CVA CVA Therapy Assessed for PT,OT and/or ST?: Yes Ischemic Stroke Antithrombotic order at d/c?: Yes Dx of Atrial fib/flutter?: No Statin Dosing Therapy Reference: STATIN DOSE THERAPY REFERENCE: * Patients > 75 years receive moderate or high dose statin therapy. * Patients 75 years or YOUNGER should receive HIGH intensity statin dose unless contraindicated. You will be required to document reason for non-treatment if statin daily dose does not meet guidelines. HIGH DOSE STATIN THERAPY DAILY Atorvastatin > than or = to 40 mg Rosuvastatin > than or = to 20 mg Amlodipine + Atorvastatin > than or = to 2.5/40 mg Ezetimibe + Simvastatin 10/80 mg Simvastatin 80mg Statins at discharge?: Yes If patient is 75 or younger, pt will be discharged on HIGH intensity statin.: Yes Primary Dx Acute Ischemic CVA?: Yes IV thrombolytic ordered during stay?: No Reason IV thrombolytic not ordered: Treatment not Indicated Discharge Plan Admission Admit Date/Time: 01/14/25 04:02 Attending Provider: Ricardo Kay Primary Care Provider: Joi Gill Consulting Providers: Gladys Marin; Rafy Bain; Chin Torres; Milly Perea; Mago Carballo; Maura Tinoco; Jose Alberto Graves; Jenny France; Sergio Palma; Martínez Hadley; Chacho Singer; Luisa Sabillon; Tristen Wilson; Meenakshi Theodore; Virginie Michael; Nataliia Puckett Romeo; Luis Alberto Oliver; Phan Garcia; Ranjit Knutson; Delaney Hernandez; Zach Klein Discharge Orders/Prescriptions Prescriptions: New atorvastatin 40 mg Tablet 40 mg PO QHS Qty: 0 0RF acetaminophen 325 mg Tablet 650 mg PO Q4H PRN PRN (Reason: Fever, pain 1-05/22) Qty: 0 0RF paroxetine HCl 10 mg Tablet 10 mg PO DAILY Qty: 0 0RF tizanidine 2 mg Tablet 4 mg PO Q8H PRN PRN (Reason: Muscle Spasm) Qty: 0 0RF albuterol sulfate 2.5 mg /3 mL (0.083 %) Solution For Nebulization 2.5 mg inhalation Q2H PRN PRN (Reason: Dyspnea, wheezing) Qty: 0 0RF sennosides-docusate sodium [Stimulant Laxative Plus] 8.6-50 mg Tablet 2 tab PO BID PRN PRN (Reason: Constipation) Qty: 0 0RF melatonin 3 mg Tablet 3 mg PO QHS PRN PRN (Reason: Insomnia) Qty: 0 0RF alum-mag hydroxide-simeth [Mag-Al Plus Extra Strength] 400-400-40 mg/5 mL Suspension 30 ml PO Q6H PRN PRN (Reason: Gastric Burning) Qty: 0 0RF enoxaparin 40 mg/0.4 mL Syringe 40 mg subcut DAILY Qty: 0 0RF insulin lispro [Humalog KwikPen Insulin] 100 unit/mL Insulin Pen See Protocol subcut ACHS Qty: 0 0RF Protocol: 3. Sliding Scale Insulin Med Dosing Condition: 150-189 mg/dl = 1 unit Condition: 190-229 mg/dl = 2 units Condition: 230-269 mg/dl = 3 units Condition: 270-309 mg/dl = 4 units Condition: 310-349 mg/dl = 5 units Condition: 350-399 mg/dl = 6 units Condition: 400-449 mg/dl = 7 units Condition: Greater than 449 call physician Protocol Text: - Use for Total Daily Dose of Insulin 37-55 units - Obsese, infected, or steroid patients MEDIUM DOSING ALGORITHIM Continued pantoprazole 40 mg tablet,delayed release (DR/EC) 40 mg PO DAILY levothyroxine 50 mcg tablet 50 mcg PO DAILY latanoprost 0.005 drops 0.005 drp EACH EYE QHS ergocalciferol (vitamin D2) 50,000 capsule 50,000 mg PO WE multivitamin 1 EACH tablet 1 ea PO DAILY aspirin 81 MG tablet 81 mg PO DAILY@0800 0RF metformin 500 mg tablet 750 mg PO BID metoprolol tartrate 25 mg tablet 12.5 mg PO BID Qty: 90 3RF nitroglycerin 0.4 mg tablet, sublingual 0.4 mg SUBLINGUAL Q5-15M PRN (Reason: chest pain) Qty: 25 3RF Rx Instructions: until response; do not exceed 3 doses per episode losartan 50 mg tablet 50 mg PO DAILY Qty: 90 3RF Other Ambulatory Orders: 30 Day Event Recorder Preventi (Urgent) Timeframe: 1 Day Facility: [facility] - Location: Cardiovascular Services Ordered By: Dr. Ricardo Kay Referrals / Follow Up: Joi Gill MD [Primary Care Provider] - Within 1 Month Nito Fried MD [Non-Staff -Ordering Privileges] - Within 1 Month Disposition Disposition (needs filled in before D/C Order can be placed): Inpatient Rehab Unit/Facility Charges/Coding Visit Charges Inpatient E&M: 16338 Disch Hosp >30min
--- NOTE | 2025-01-16 09:16 | CASEMGMT ---
Social Work Precert has been obtained for pt to go to inpatient rehab unit. Physician notified and pt is ready for discharge today. SW met with pt and informed and pt is agreeable to dc plan. SW notified pt . Nursing updated and to coordinate time with RU for discharge. Disposition: Inpatient Rehab ROMEO Amezcua
[2025-01-16 09:29] LABS: Anion Gap 10 (5-15); BUN 7 mg/dL (4-19); BUN/Creat Ratio 9.1 RATIO (10-20); Calcium,Total 8.9 mg/dL (7.6-11.0); Carbon Dioxide 23.1 mmol/L (21.0-32.0); Chloride 105 mmol/L (98-108); Creatinine, Serum 0.72 mg/dL (0.70-1.20); EST Glomerular Filtration Rate 103 (>60); Estimated Creatinine Clearance 140.02 ml/min (50-250); Glucose 135 mg/dL (70-99); Potassium 3.9 mmol/L (3.3-5.1); Sodium Level 138 mmol/L (133-145)
[2025-01-16] MEDS: Enoxaparin 40 MG/0.4 ML Syringe SC (09:37)
[2025-01-16] MEDS: Pantoprazole Sodium 40 MG Tablet PO (09:37)
[2025-01-16] MEDS: PARoxetine 10 MG Tablet PO (09:37)
[2025-01-16] MEDS: Aspirin E.C. 81 MG Tablet PO (09:37)
== END 2025-01-16 11:11 | DRG 65 ==
LOC: ED 03:58 → ICU 04:18
PROVIDERS: Admitting Provider Family Medicine; Emergency Provider Emergency Medicine; PCP Internal Medicine; Visit Provider Internal Medicine
DX: I63.9 Cerebral infarction, unspecified (principal); G81.91 Hemiplegia, unspecified affecting right dominant side; E11.9 Type 2 diabetes mellitus without complications; E03.9 Hypothyroidism, unspecified; I10 Essential (primary) hypertension; F32.A Depression, unspecified; G25.81 Restless legs syndrome; E66.812 Obesity, class 2; Z93.2 Ileostomy status; K21.9 Gastro-esophageal reflux disease without esophagitis; I25.10 Atherosclerotic heart disease of native coronary artery without angina pectoris; E78.5 Hyperlipidemia, unspecified; F17.290 Nicotine dependence, other tobacco product, uncomplicated; I25.2 Old myocardial infarction; Z95.5 Presence of coronary angioplasty implant and graft; R29.708 NIHSS score 8; Z68.36 Body mass index [BMI] 36.0-36.9, adult; Z79.82 Long term (current) use of aspirin; Z79.890 Hormone replacement therapy; Z79.84 Long term (current) use of oral hypoglycemic drugs; Z85.038 Personal history of other malignant neoplasm of large intestine; R29.709 NIHSS score 9
CPT/HCPCS: 36415; 70450; 70496; 70498; 70551; 71045; 74230; 80048; 80053; 80061; 81001; 82962; 83036; 83735; 84100; 84443; 85025; 85027; 85610; 85730; 92526; 92610; 92611; 93005; 93306; 94668; 94762; 97110; 97112; 97162; 97166; 97530; 97802; 99285; J3101; Q9957; Q9967; A4216; C8929

== ENCOUNTER 2025-01-16 11:12 | Inpatient (IN) | payer OTHER, SELFPAY ==
[2018-10-24 12:28] VITALS: BMI 36.8
--- NOTE | 2025-01-16 11:20 | HP.PCM_ITS ---
HPI - General General Date of Admission: 01/16/25 Date of Service: 01/16/25 Chief Complaint: POST STROKE DEBILITY HPI Narrative WALDO MURRAY, is a 64 YO M with a PMH of chronic anemia, obesity, GERD, restless leg syndrome, hypothyroidism, history of colon cancer (status post partial colectomy/ileostomy), hypertension, hyperlipidemia, diabetes mellitus type 2, diabetic peripheral polyneuropathy, coronary artery disease (history of PCI) and tobacco dependence (He admitted to smoking cigars). who presented to the ED at [facility] on 01/14/25 at 03:01 with a complaint of right-sided facial droop, right-sided weakness and slurred speech. He reported that he went to bed at approximately 11 PM on 01/13/2025 and woke up at approximately 1:30 in the morning with symptoms. NIHSS was 9 at arrival to the ED. Stat CT brain, at 03:04 showed no acute intracranial findings. CTA of the head and neck showed no hemodynamically significant narrowing or large vessel occlusion of the head and neck vasculature. Tele-neurology was consulted and was online at 03:17. At the time the knowledge management consultant finished reviewing the scans and examining the patient he was just outside the 4 1/2 time limit for thrombolytic therapy. Neurology felt this was most likely a small vessel stroke and that TNK was not indicated because the risk at > 4.5 hours outweighed potential benefit. He was admitted to the hospitalist service. MRI and TTE were ordered and he was maintained on ASA 81 mg daily. He stated he was allergic to statins and listed reactions to Crestor as GERD and cough. Total cholesterol was 188 with an LDL of 125 and an HDL of 40. TSH was 5.66. Hemoglobin A1c was 7.5. MRI showed an acute left pontine infarction. Transthoracic echocardiogram showed mild concentric left ventricular hypertrophy with an ejection fraction of 65% and stage I diastolic dysfunction. Both atria were of normal size but there was a hypermobile interatrial septum. The bubble contrast study was nondiagnostic for PFO/ASD. He was started on Atorvastatin on 01/15/25. PT/OT/ST recommended acute inpt rehab and he was transferred to the acute inpt rehab unit at [facility] on 01/16/25 for 3 hours of therapy daily to restore function/independence at or near his level prior to the stroke. All labs, consults, progress notes and imaging was personally reviewed. He has microcytic anemia with an increased RDW. Multiple family members with hx of VTE - hypercoagulable disorder? [facility] Medical History (Updated 01/16/25 @ 15:[address] Vinita Donohue, DO) Grade I diastolic dysfunction Concentric left ventricular hypertrophy Diabetic polyneuropathy Morbid obesity Closed fracture of left proximal humerus Essential hypertension Hypothyroidism History of colon cancer History of non-ST elevation myocardial infarction (NSTEMI) (10/24/18) Type 2 diabetes mellitus RLS (restless legs syndrome) GERD (gastroesophageal reflux disease) Atherosclerotic heart disease of [place] coronary artery without angina pectoris ACS (acute coronary syndrome) (10/24/18) Home Medications ?Medication ?Instructions ?Recorded ?Last Taken ?Type ergocalciferol (vitamin D2) 1,250 50,000 mg PO WE randal min 10/24/18 10/17/18 History mcg (50,000 unit) capsule latanoprost 0.005 % eye drops 0.005 drp EACH EYE QHS g [place] 10/24/18 01/15/25 History multivitamin 1 ea PO DAILY vitamin 10/23/18 History pantoprazole 40 mg tablet,delayed 40 mg PO DAILY stoma ch 12/09/19 Unknown History release levothyroxine 50 mcg tablet 50 mcg PO DAILY thyroid 01/16/25 History metoprolol tartrate 25 mg tablet 12.5 mg (1/2 x 25 mg) PO BID heart 03/12/23 Unknown Rx rate #90 tabs metformin 500 mg tablet 750 mg PO BID diabetes 03/18 Unknown History nitroglycerin 0.4 mg sublingual 0.4 mg sublingual Q5-1 5M PRN chest 05/13/24 Unknown Rx tablet pain #25 tabs losartan 50 mg tablet 50 mg PO DAILY Blood pressur e #90 09/29/24 Unknown Rx tabs acetaminophen 325 mg tablet 650 mg (2 x 325 mg) PO Q4H PRN PRN 01/16/25 Unknown Rx Fever, pain 1-10 #0 tabs albuterol sulfate 2.5 mg/3 mL 2.5 mg (3 mL) inhalation Q2H PRN 01/16/25 Unknown Rx (0.083 %) solution for nebulization PRN Dyspnea, wheez ing #0 mL aluminum-mag hydroxide-simethicone 30 ml PO Q6H PRN NJ N Gastric 01/16/25 Unknown Rx 400 mg-400 mg-40 mg/5 mL oral susp Burning #0 mL (Mag-Al Plus Extra Strength) aspirin 81 mg tablet,delayed 81 mg PO DAILY heart heal th 01/16/25 01/16/25 History release atorvastatin 40 mg tablet 40 mg PO QHS cholesterol #0 tabs 01/16/25 01/15/25 Rx enoxaparin 40 mg/0.4 mL 40 mg (0.4 mL) subcut DAILY 01/16/25 01/16/25 Rx subcutaneous syringe prophylaxis #0 mL melatonin 3 mg tablet 3 mg PO QHS PRN PRN Insomnia #0 01/16/25 01/15/25 Rx tabs Family History Grandmother CAD (coronary artery disease) Sister Pulmonary embolism Mother Autoimmune hepatitis Surgical History (Updated 01/16/25 @ 15:[address] Vinita Donohue DO) History of partial colectomy History of ileostomy History of coronary artery stent placement (10/24/18) Social History (Updated 01/16/25 @ 15:[address] Vinita Donohue DO) household members: spouse housing: house number of children: 1 Smoking Status: Current some day smoker tobacco type: cigars per week: 1 how long ago did patient quit smoking: Notes remotely quit cigarette tobacco use (before 1984), occasional cigar. alcohol intake: current alcohol intake frequency: holidays/special occasions only substance use type: does not use caffeine: Yes (coffee and Propel ( the energy boost has caffeine but, regular Propel does ) Indicators for Scoring Admitted with or Primary Diagnosis of CVA/Stroke: Yes Hx of CVA/Stroke: Yes Modified [place] Score MRS Score at time of Evaluation: 4-Moderate/severe disability NIHSS NIHSS 1a. Level of Consciousness: 0 - Alert; keenly responsive 1b. LOC Questions: 0 - Answers BOTH questions correctly 1c. LOC Commands: 0 - Performs BOTH tasks correctly 2. Best Gaze: 0 - Normal 3. Visual: 0 - No visual loss 4. Facial Palsy: 1 - Minor paralysis (flattened nasolabial fold, asymmetry on smiling) 5a. Left Arm: 0 - No drift; arm holds 90 (or 45) degrees for full 10 seconds 5b. Right Arm: 3 - No effort against gravity; arm falls 6a. Left Le - No drift; leg holds 30-degree position for full 5 seconds 6b. Right Le - No effort against gravity; leg falls to bed immediately 7. Limb Ataxia: 0 - Absent 8. Sensory: 1 - Wrmv-pi-lzfitwbx sensory loss; (R face. Has increased pain sensation in the R arm and leg cpmp[red to the left) 9. Best Language: 1 - Hrsp-iw-gbncdjtf aphasia; 10. Dysarthria: 1 = Etik-jk-jpnpvral dysarthria; 11. Extinction and Inattention: 0 - No abnormality Total: 10 Stroke Questions Stroke Team Activated: No Physical Exam Const alert, oriented x3 and no apparent distress Constitutional Narrative: Sitting in the recliner at the bedside and eating his lunch when I entered the room. He did not require assist to eat and he was instituting the swallowing precautions told to him by ST.....turning his head to the left when swallowing General Appearance: cooperative, well kempt and well developed Nutritional Appearance: obese HEENT normocephalic, head/scalp atraumatic, hearing grossly normal bilaterally and moist oral mucous membranes Eyes PERRL, EOMs intact bilaterally, conjunctivae normal and no scleral icterus Eyes Narrative: No discharge from the eyes and no mattering of the eyelashes. Eyes are blue. Slight ptosis on the R of the upper lid. General Eye: normal appearance of both eyes Neck No nodes Neck Narrative: Thick neck. Supple. No bruits. Brisk caotid upstroke with good pulse volume. General: trachea midline; Negative for tenderness Chest Chest: symmetrical chest wall rise Resp normal respiratory effort, normal air movement, no use of accessory muscles and clear to auscultation bilaterally Effort and Inspection: able to speak in complete sentences; Negative for tachypneic or pursed lip breathing Cardio regular rate, regular rhythm, S1 normal heart sound, S2 normal heart sound, no murmurs, no rub and no gallops Cardio Narrative: No ectopy GI normal to inspection, nondistended, normoactive bowel sounds, soft to palpation and non-tender GI Narrative: no guarding with palpation. Back/Spine normal to inspection Back/Spine Narrative: Denies pain. General Back: Negative for CVA tenderness Extremity no calf tenderness Extremity Narrative: has superficial varicosities of both legs. No pitting edema. No clubbing Skin no wounds and no jaundice General Skin Exam: no breakdown Rashes: no rashes Neuro oriented x3 Neuro Narrative: No effort against gravity with the R arm or leg. + R facial droop. Mild ptosis of the R upper eyelid. PERRLA. EOMI. Tongue protrudes on the midline. No visual filed cuts. NO extinction. No ataxia on the Left side ....can not test the R due to inability to move arm or leg against gravity. Decreased sensation in the R face to pinprick. Pinprick felt sharper in the RUE and RLE than on the left. 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 HGBA1C is 7.5. Goal for patients with CAD and CVA is 7 or less. (11) Essential hypertension: (12) Hyperlipemia: QUALIFIERS: Hyperlipidemia type: unspecified Qualified Code(s): E78.5 - Hyperlipidemia, unspecified (13) Atherosclerotic heart disease of [place] coronary artery without angina pectoris: QUALIFIERS: [place] vs. transplanted heart: [place] heart Qualified Code(s): I25.10 - Atherosclerotic heart disease of [place] coronary artery without angina pectoris (14) History of coronary artery stent placement: (15) Concentric left ventricular hypertrophy: (16) Grade I diastolic dysfunction: (17) GERD (gastroesophageal reflux disease): QUALIFIERS: Esophagitis presence: without esophagitis Qualified Code(s): K21.9 - Gastro-esophageal reflux disease without esophagitis (18) Morbid obesity: (19) History of colon cancer: (20) Reactive depression: (21) Diabetic polyneuropathy: (22) RLS (restless legs syndrome): PLAN: Plan PLAN PT for gait stability OT for ADL's ST for evaluation Analgesics as needed Bowel protocol Fall precautions Assess for Anxiety/Depression GI prophylaxis -pantoprazole 40 mg daily DVT prophylaxis with enoxaparin 40 mg subcu daily Follow up with PCP, Dr. Miranda, neurology following DC from IP Rehab Check a free T4, iron studies and repeat phos in the AM. Hemoccult stool Advised weight loss and complete discontinuation of nicotine products. discussed goal for BP, HGBA1C and LDL in stroke patients. Change Paxil to Sertraline.......Paxil tends to be more sedating. Effexor could treat depression and help with wt loss but, BP is elevated now and Effexor can cause increase BP so will go with a SSRI for now. Overnight trending pulse ox. Measure neck in cm Consider Ozempic as OP to assist with weight loss. 1. Do you snore loudly? N 2. Do you often feel tired, fatigued or sleepy during the day? Yes 3. Has anyone ever observed you stop breathing during sleep? No 4. Do you have (or are you being treated for) HTN? Yes BMI 35.8 AGE 64 Neck circumference greater than 40 Gender male Total 6 Falls asleep watching TV. Suffers from Leg cramps/restless legs. Naps during the day. Charges/Coding Visit Charges Inpatient E&M: 88568 Init Hosp L3
[2025-01-16 11:32] VITALS: BP 165/91; PULSE 69; RESP 17; TEMP 36.9; O2SAT 98
[2025-01-16 11:37] VITALS: BMI 35.8
--- NOTE | 2025-01-16 12:08 | PCM.RU.PYE ---
Admission Information Primary Diagnosis:: POST STROKE DEBILITY. Status Changes from Prescreening?: No changes Identified Actual Problem List:: Depression, Alteration in Sleep, Alteration in Nutrition, Mobility Impaired, Self Care Deficit, Know.Dfct/Disease Process, Know.Dfct of Medicaitons, Diabetes, Hyperglycemia, BP, Hypertension and Alteration-Leisure Activ. Potential Problem List:: DVT, Bleeding, Infection, UTI, Aspiration, Falls, Skin Integrity and Depression Risk of Complications DVT: LMWH and ALICIA Hose Bleeding: Monitor Lab Values, Nursing to Teach Precautions for anti-coagulation therapy., Wound, if applicable, to be assessed every shift. and Stroke patients assessed for lethargy or change in status. Infection: Clinical Staff to Monitor for S/S of infection: and S/S of infection include fever, redness, warmth, etc. Urinary Tract Infection: Monitor for frequency, burning, discomfort, or incontinence. and Nursing will obtain urine sample for urinalysis and C&S when ordered. Aspiration: Clinical staff will monitor for coughing, drooling, congestion., Speech will evaluate swallowing and dsyphasia. and Nursing will monitor patient swallowing during meals. Falls: Patient will be evaluated for Fall Precautions and Patient will be placed on Fall Precautions as indicated per protocol. Skin Breakdown: Nursing will assess skin daily using assessment tool. and Nursing will place on Skin Breakdown Precautions as indicated. Pain: Clinical staff will assess patient's pain level per protocol., Medications will be given, if needed, and the pain level reassessed. and Other methods: Massage, distraction, decrease stimulus, etc. used PRN. Plan of Care Patient requires physician specializing in physical medicine and rehab oversight to provide close medical supervision of rehab issues including: Pain Management, Sleep Problems, Bowel and Bladder, Medical and co-morbidity Management, DVT prophylaxis, Rehabilitation Leadership and Coordination of treatment team Patient needs Physical Therapy: For a minimum of 1 hour and At least 5 out of 7 days Patient needs Physical Therapy to improve:: Mobility, Strengthening, Transfers, Stretching, ROM, Endurance, Stairs, Gait and Balance Patient needs Occupational Therapy: For a minimum of 1 hour and At least 5 out of 7 days Patient needs Occupational Therapy to improve ADL's incl.: Eating, Grooming, Bathing, Dressing, Toileting, Toilet transfers, Community Reintegration, Higher functioning activities, Household tasks, Adaptive Equipment, Splinting and Other activities as determined Patient requires speech therapy: For a minimum of 1 hour and At least 5 out of 7 days Patient requires speech therapy for: Swallowing, Cognition, Language Skills and Compensatory Strategies Patient requires 05/03 Rehabilitation Nursing for: Pain Issues, Identifying and preventing risk factors, Monitoring and reporting current medical conditions, Assisting with ambulation, transfer, and all ADL's, Teaching patients about disease process and medications, Family teaching, Providing safe environment, Bowel and Bladder Issues, Skin integrity and Medication Management Patient needs [employer]/ Case Management for: Discharge Planning, Arranging Home Equipment or Services and Family Interventions Patient needs Dietary and Nutrition Services for: Adequate Nutrition, Nutritional Supplements and Nutritional Education Goals Goals Patient will remain: free from falls Patient will perform eating at: MOD I level of assist. Patient will perform bed mobility at: MOD I level of assist. Patient will complete transfers from bed to chair at: - (Contact-guard assist) Patient will ambulate: - (150 feet with least restrictive device at contact-guard assist on various surfaces) Patient will complete upper body dressing at: - (Set up) Patient will complete lower body dressing at: - (Minimal assistance using adaptive equipment as needed) Patient will complete toilet transfer at: - (Min assist) Patient will complete toileting at: - (Min assist) Patient will perform bathing at: - (He will complete upper body bathing at min assist and lower body bathing at min assist with adaptive equipment as needed.) Patient will perform Tub/Shower transfer at: - (Minimal assistance using DME as needed) Patient will complete grooming at: - (Set up while seated at the sink) Patient will achieve: - (1 curb step with least restrictive device) Patient will have pain level of: of 3 or less Patient's skin will: remain intact Patient will receive: adequate nutrition. Discharge Planning Pt Prognosis for Sig. Practical Improv. w/in Reasonable Time: Good Estimated Length of stay (days): 28 Anticipated D/C Destination: Home with Outpt Therapy Was Preadmission Assessment Accurate?: Yes
[2025-01-16 12:30] LABS: Bedside Glucose 123 mg/dL (74-106)
[2025-01-16 13:24] VITALS: BMI 35.8
[2025-01-16 15:48] VITALS: O2SAT 97
--- NOTE | 2025-01-16 15:49 | CPS ---
Patient is able to use independently. Had used IS and PEP with patient in ICU. Emphasized continue use.
[2025-01-16] MEDS: tiZANidine HCl 2 MG Tablet PO (16:43)
[2025-01-16 16:58] LABS: Bedside Glucose 108 mg/dL (74-106)
[2025-01-16 18:00] VITALS: BP 158/87; PULSE 66; RESP 16; TEMP 36.9; O2SAT 98
--- OUTSIDE RECORDS SUMMARY | 2025-01-16 18:11 | XMS RPT_ITS | CCD ---
Author Organization [facility] CliniSynd Care Team Providers Care Store Coordinator Name Role Phone Bettye Powell MD Primary Care Provider [phone] GANTA, BETTYE Primary Care Unavailable DEMETRIS HAMILTON Attending Unavailable RAYMUNDO GALLEGOS Admitting Unavail able RAYMUNDO GALLEGOS Attending Unavail able RAYMUNDO GALLEGOS Referring Unavail able GANTA, BETTYE Primary Care Unavailable Bettye Powell MD Primary Care Provider Bettye Powell MD Primary Care Provider LIZETH BRADFORD Attending Unavailable GANTA, BETTYE Primary [...] Care Unavailable Rachel Guthrie PA-C Unavailable 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 WELT, Amada Unavailable [phone] Rere Gonzales PA-C Unavailable Kinsey Sinclair Attending Unavailable Ganta, Bettye Primary Care Unavailable Gladys Marin Consulting Unavailable Glayds Marin Attending Unavailable Gladys Marin Admitting Unavailable Ganta, Bettye Primary Care Unavailable Ricardo Kay Attending Unavailable Rafy Bain Consulting Unavailable Adeli, Amir Consulting Unavailable Hinduja, Milly Consulting Unavailable Haris, Mago Consulting Unavailable Zha, Maura Consulting Unavailable Star, Jose Alberto Consulting Unavailable Román, Jenny Consulting Unavailable Bittar, Sergio Consulting Unavailable Martínez Hadley Consulting Unavailable Chacho Singer Consulting Unavailable Luisa Sabillon Consulting Unavailable Ambar Wilson Consulting Unavailable Meenakshi Theodore Consulting Unavailable Virginie Michael Consulting Unavailable Nataliia Puckett Consulting UnavailLuis Alberto Garcia Consulting Unavailable Phan Garcia Consulting Unavailable Ranjit Knutson Consulting Unavailable Delaney Hernandez Consulting Unavailable Zach Klein Consulting Unavailable Ricardo Kay Consulting Unavailable Sherine Stack Attending Unavail able Bettye Powell Referring Unavailable Bettye Powell Primary Care Unavailable Allergies Allergy Classification Reported Allergen(s) Allergy Type Date of Onset Reaction(s) Facility (20 sources) House dust mite; Translations: [DUST MITES] Propensity to adverse reactions 0 [facility] (15 sources) atorvastatin; Translations: [ATORVASTATIN] Drug Allergy [address] [facility] (15 sources) rosuvastatin; Translations: [ROSUVASTATIN] Drug Allergy 3 GI [facility] (1 source) atorvastatin Drug Allergy 5 [facility] (1 source) rosuvastatin Drug Allergy 5 [facility] Medications Current Medications Medication Drug Class(es) Dates [...] Comment on above: Take 1 tablet by bbo th every 6 hours as needed for pain for up to 3 days. aspirin 81 mg chewable tablet (20 sources) Platelet Aggregation Inhibitor, Nonsteroidal Anti-inflammatory Drug Start: 04-03-20 take 1 tablet by mouth once daily aspirin 81 mg chewable tablet Indications: Type 2 diabetes mellitus without complication, without long-term current use of insulin ([facility]) Take 1 tablet by mouth once daily. 90 tablet 3 04/03/2018 Active Comment on above: Take 1 tablet by bob th once daily. cephalexin 500 mg oral capsule (8 sources) Cephalosporin Antibacterial Start: 06-24-20 End: 07-01-20 take 1 capsule by mouth twice daily cephALEXin (KEFLEX) 500 mg capsule Take 1 capsule by mouth twice daily for 7 days. 14 capsule 0 06/24/2022 07/01/2022 Active Comment on above: Take 1 capsule by mo [facility] twice daily for 7 days. cetirizine hydrochloride [...] symptoms. COMPOUNDED PRESCRIPTION (20 sources) Start: 04-24-20 COMPOUNDED PRESCRIPTION Indications: Type 2 diabetes mellitus without complication, without long-term current use of insulin ([facility]) , Plantar fasciitis Diabetic arch supports Dx: E11.9 M72.2 2 Each 04/24/2018 Active Start: 04-24-2018 COMPOUNDED PRE SCRIPTION Indications: Type 2 diabetes mellitus without complication, without long-term current use of insulin ([facility]) , Plantar fasciitis Diabetic arch supports Dx: [...] CAPSULE ONCE WEEKLY Take 1 capsule by mo [facility] one time a week. iv contrast (will [...] solution (20 sources) Prostaglandin Analog Start: 04-18-20 take 1 drop(s) into the eye(s) once [...] oral tablet (20 sources) l-Thyroxine Start: 09-29-19 25 take 1 tablet by [...] (20 sources) Angiotensin 2 Receptor Berta Start: End: take 1 tablet by mouth once daily losartan (COZAAR) 25 mg tablet Take 1 tablet by mouth once daily. 90 tablet 1 11/26/2023 Active Comment on above: Take 1 tablet by bob th once daily. metFORMIN hydrochloride 500 mg oral tablet (20 sources) Biguanide Start: metFORMIN (GLUCOPHAGE) 500 mg tablet Take 2 [...] Serotonin-3 Receptor Antagonist Start: 06-24-20 End: 07-01-20 22 take 1 tablet by mouth every six [...] (20 sources) Proton Pump Inhibitor Start: 09-29-19 take 1 tablet by mouth [...] Comment on above: Take 1 tablet by [facility] once daily. predniSONE 20 mg oral tablet (1 source) Start: End: take 1 tablet by mouth once daily predniSONE (DELTASONE) 20 mg tablet Indications: Otalgia of both ears , Dysfunction of Eustachian tube, unspecified laterality Take 1 tablet by mouth once daily for 5 days. 5 tablet 0 01/05/2022 01/10/2022 Active Comment on above: Take 1 tablet by [facility] once daily for 5 days. tamsulosin hydrochloride 0.4 mg oral capsule (20 sources) alpha-Adrenergic Berta Start: End: take 1 capsule by mouth once daily at bedtime tamsulosin (FLOMAX) 0.4 mg Indications: History of kidney stones Take 1 capsule by mouth daily at bedtime. 90 capsule 1 11/26/2023 Active Comment on above: Take 1 capsule by [facility] daily at bedtime for 7 days. Take 1 capsule by [facility] daily at bedtime. Completed/Discontinued Medications Medication Drug Class(es) Dates Sig (Normalized) Sig (Original) [id number] 200 actuat albuterol 0.09 mg/actuat metered dose [...] Comment on above: Take 1 capsule by [facility] twice daily. fluticasone propionate 0.05 mg/actuat metered [...] Classification Problem Date Documented Da te Episodic/Chronic Acute cerebrovascular disease (1 source) Cerebral infarction, unspecified; Translations: [Cerebral infarction, unspecified] Onset: 01-15-2025 Chronic Cancer of colon (20 sources) Malignant tumor of sigmoid colon; Translations: [Malignant neoplasm of sigmoid colon] Onset: 07-13-2017 08-06-2017 Chronic Cancer of rectum and anus (20 sources) Malignant tumor of rectum; Translations: [Malignant neoplasm of rectum] Onset: 08-02-2017 08-06-2017 Chronic Coronary atherosclerosis and other heart disease (20 sources) Coronary atherosclerosis; Translations: [Atherosclerotic heart disease of [place] coronary artery without angina pectoris] Onset: 06-02-2020 [...] other specified B group vitamins] 09-08-2024 Episodic Other aftercare (1 source) Patient encounter status; Translations: [Other fdc (current) drug therapy] 02-26-2024 Episodic Other connective [...] 06-27-2023 Episodic Other aftercare (1 source) Other extermination supervisor (current) drug therapy; Translations: [Medication management] Onset: [...] Test Name Value Interpretation Reference Range Facility Bedside Glucoseon 01-15-2025 FINGERSTICK GLU 116 mg/dL High 74-106 [facility] Comment on above: Result Comment: KEVIN GEMENT OF PATIENT CARE PER NURSING PROTOCOL Performed By: #### L 501.080 #### [facility] [address] [place], [address] FINGERSTICK GLU 103 mg/dL Normal 74-106 [facility] Comment on above: Result Comment: KEVIN GEMENT OF PATIENT CARE PER NURSING PROTOCOL Performed By: #### L 100.0100, L500.4050, L500.4100 #### [facility] [address] [place], [address] FINGERSTICK GLU 150 mg/dL High 74-106 [facility] Comment on above: Result Comment: KEVIN GEMENT OF PATIENT CARE PER NURSING PROTOCOL Performed By: #### L 501.080 #### [facility] [address] [place], [address] FINGERSTICK GLU 126 mg/dL High 74-106 [facility] Comment on above: Result Comment: KEVIN GEMENT OF PATIENT CARE PER NURSING PROTOCOL Performed By: #### L 501.080 #### [facility] [address] [place], [address] CBC-Complete Blood Cnt No Di ffon 01-15-2025 Erythrocyte distribution width (RBC) [Ratio] 15.0 % High 11.6-14.6 [facility] Comment on above: Performed By: #### L 100.0100, L500.4050, L500.4100 #### [facility] [address] [place], [address] Hematocrit (Bld) [Volume fraction] 37.8 % Low 40-54 [facility] Comment on above: Performed By: #### L 100.0100, L500.4050, L500.4100 #### [facility] [address] [place], [address] Hemoglobin (Bld) [Mass/Vol] 12.2 g/dL Low 13.0-16.5 [facility] Comment on above: Performed By: #### L 100.0100, L500.4050, L500.4100 #### [facility] [address] [place], [address] MCH (RBC) [Entitic mass] 25.5 pg Low 27.0-32.0 [facility] Comment on above: Performed By: #### L 100.0100, L500.4050, L500.4100 #### [facility] [address] [place], [address] MCHC (RBC) [Mass/Vol] 32.3 g/dL Normal 32-36 [facility] Comment on above: Performed By: #### L 100.0100, L500.4050, L500.4100 #### [facility] [address] [place], [address] MCV (RBC) [Entitic vol] 78.9 fL Low 80-94 [facility] Comment on above: Performed By: #### L 100.0100, L500.4050, L500.4100 #### [facility] [address] [place], [address] Platelet mean volume (Bld) [Entitic vol] 9.9 fL Normal 6.2-12.0 [facility] Comment on above: Performed By: #### L 100.0100, L500.4050, L500.4100 #### [facility] [address] [place], [address] Platelets (Bld) [#/Vol] 276 10*3/uL Normal 150-450 [facility] Comment on above: Performed By: #### L 100.0100, L500.4050, L500.4100 #### [facility] [address] [place], [address] RBC (Bld) [#/Vol] 4.79 10*6/uL Normal 4.6-6.2 [facility] Comment on above: Performed By: #### L 100.0100, L500.4050, L500.4100 #### [facility] [address] [place], [address] RDW SD 43.2 fl Normal 35.1-43.9 [facility] Comment on above: Performed By: #### L 100.0100, L500.4050, L500.4100 #### [facility] [address] [place], [address] WBC (Bld) [#/Vol] 9.5 10*3/uL Normal 4.4-11.0 [facility] Comment on above: Performed By: #### L 100.0100, L500.4050, L500.4100 #### [facility] [address] [place], [address] Comprehensive Metabolic Prof ilon 01-15-2025 Albumin [Mass/Vol] 3.7 g/dL Normal 3.4-4.8 [facility] Comment on above: Performed By: #### L 501.080 #### [facility] [address] [place], [address] Albumin/Globulin [Mass ratio] 1.3 {ratio} Normal 0.9-2.4 [facility] Comment on above: Performed By: #### L 501.080 #### [facility] [address] [place], [address] ALK PHOS 66 U/L Normal 40-129 [facility] Comment on above: Performed By: #### L 501.080 #### [facility] [address] [place], [address] ALT [Catalytic activity/Vol] 40 U/L Normal <=46 [facility] Comment on above: Performed By: #### L 501.080 #### [facility] [address] [place], [address] AST [Catalytic activity/Vol] 42 U/L High <=37 [facility] Comment on above: Performed By: #### L 501.080 #### [facility] [address] [place], [address] Bilirubin [Mass/Vol] 0.31 mg/dL Normal 0.00-1.30 [facility] Comment on above: Performed By: #### L 501.080 #### [facility] [address] [place], [address] BUN/CRE 10.0 RATIO Normal 10-20 [facility] Comment on above: Performed By: #### L 501.080 #### [facility] [address] [place], [address] Calcium [Mass/Vol] 8.7 mg/dL Normal 7.6-11.0 [facility] Comment on above: Performed By: #### L 501.080 #### [facility] [address] [place], [address] Chloride [Moles/Vol] 106 mmol/L Normal 98-108 [facility] Comment on above: Performed By: #### L 501.080 #### [facility] [address] [place], [address] CO2 [Moles/Vol] 21.4 mmol/L Normal 21.0-32.0 [facility] Comment on above: Performed By: #### L 501.080 #### [facility] [address] [place], [address] Creatinine [Mass/Vol] 0.77 mg/dL Normal 0.70-1.20 [facility] Comment on above: Performed By: #### L 501.080 #### [facility] [address] [place], [address] ECRCL 130.20 ml/min Normal 50-250 [facility] Comment on above: Performed By: #### L 501.080 #### [facility] [address] [place], [address] GAP 11 Normal 5-15 [facility] Comment on above: Performed By: #### L 501.080 #### [facility] [address] [place], [address] GFR/1.73 sq M.predicted among non-blacks MDRD (S/P/Bld) [Vol rate/Area] 101 mL/min/{1.73_m2} Normal >60 [facility] Comment on above: Result Comment: mL/m in/1.73m2 CKD-EPI Creatinine Equation (2020) Performed By: #### L 501.080 #### [facility] [address] [place], [address] Globulin (S) [Mass/Vol] 2.9 g/dL Normal 2.2-4.2 [facility] Comment on above: Performed By: #### L 501.080 #### [facility] [address] [place], [address] Glucose [Mass/Vol] 194 mg/dL High 70-99 [facility] Comment on above: Performed By: #### L 501.080 #### [facility] [address] [place], [address] Potassium [Moles/Vol] 4.0 mmol/L Normal 3.3-5.1 [facility] Comment on above: Performed By: #### L 501.080 #### [facility] [address] [place], [address] Sodium [Moles/Vol] 138 mmol/L Normal 133-145 [facility] Comment on above: Performed By: #### L 501.080 #### [facility] [address] [place], [address] T PROT 6.6 g/dL Normal 5.9-8.4 [facility] Comment on above: Performed By: #### L 501.080 #### [facility] [address] [place], [address] Urea nitrogen [Mass/Vol] 8 mg/dL Normal 4-19 [facility] Comment on above: Performed By: #### L 501.080 #### [facility] [address] [place], [address] MR/CON.PCM.NEon 01-15-2025 MR/CON.PCM.NE [facility] Medical Records Department [address] [place] [address] Consultation - Neurology 01/15/25 1156 MR#: [id number] Acct: [id number] Name: WALDO ZEE Rep #: [id number] : 1960 64 From: Chacho Singer MD PCP: Dr. Bettye Powell MD Status:ADM IN Location: ICU ICU07-1 Assessment and Plan: Stroke Assessment/Plan 64M w/ DM, CAD s/p stents, colon cancer, HTN, and HLD who is allergic to statins who presents with right sided weakness. Went to bed around 11pm the day of admission and was fine and woke up at 130am with these symptoms. Never happened before so came the ED. CTH/CTA neg. NIH 9. SBP 140. He came in right at the very end of tnk window and unfortunately could not get it within the window. His MRI brain confirmed an acute left pontine ischemic stroke which is likely small vessel. TTE unrevealing. LDL 107. A1c 7.5. Cont ASA 81, he is on statin and tolerating fine can continue, cont cv risk factor optimzation, would do a 30d event monitor just to be thorough, PT/OT, will need to follow up with pcp and neuro after dc. No further recs. Please reachout for any questions or concerns. Stroke to sign off. HPI Consult Data Date of Consult: 01/15/25 HPI Narrative HPI Narrative: 64M w/ DM, CAD s/p stents, colon cancer, HTN, and HLD who is allergic to statins who presents with right sided weakness. Went to bed around 11pm the day of admission and was fine and woke up at 130am with these symptoms. Never happened before so came the ED. CTH/CTA neg. NIH 9. SBP 140. He came in right at the very end of tnk window and unfortunately could not get it within the window. His MRI brain confirmed an acute left pontine ischemic stroke which is likely small vessel. TTE unrevealing. LDL 107. A1c 7.5. Cont ASA 81, he is on statin and tolerating fine can continue, cont cv risk factor optimzation, would do a 30d event monitor just to be thorough, PT/OT, will need to follow up with pcp and neuro after dc. [facility] Medical History Essential hypertension Hypothyroidism History of colon cancer History of non-ST elevation myocardial infarction (NSTEMI) (10/24/18) Type 2 diabetes mellitus Obesity RLS (restless legs syndrome) GERD (gastroesophageal reflux disease) Atherosclerotic heart disease of [place] coronary artery without angina pectoris ACS (acute coronary syndrome) (10/24/18) Home Medications ???Medication ???Instructions ???Recorded ???Last Taken ???Type ergocalciferol (vitamin D2) 1,250 50,000 mg PO WE vitamin 10/24/18 10/17/18 History mcg (50,000 unit) capsule latanoprost 0.005 % eye drops 0.005 drp EACH EYE QHS glaucoma 10/23/18 History multivitamin 1 ea PO DAILY vitamin 10/24/18 History aspirin 81 mg tablet,delayed 81 mg PO DAILY@0800 10/25/18 Unkno wn Rx release pantoprazole 40 mg tablet,delayed 40 mg PO DAILY 12/09/19 Unknown H istory release levothyroxine 50 mcg tablet 50 mcg PO DAILY 02/22/21 Unknown H istory metoprolol tartrate 25 mg tablet 12.5 mg (1/2 x 25 mg) PO BID #90 0 03/12/23 Unknown Rx tabs metformin 500 mg tablet 750 mg PO BID diabetes 03/18/24 Un known History nitroglycerin 0.4 mg sublingual 0.4 mg sublingual Q5-15M PRN chest 05/13/24 Unknown Rx tablet pain #25 tabs losartan 50 mg tablet 50 mg PO DAILY #90 tabs 09/29/24 U nknown Rx Allergy/AdvReac Type Severity Reaction Status Date / Time atorvastatin AdvReac Intermediate Acid reflux Verified 01/14/25 03:03 rosuvastatin (From Crestor) AdvReac Intermediate Acid Verified 01/14/25 03:03 reflux, cough Family History Grandmother CAD (coronary artery disease) Sister Pulmonary embolism Mother Autoimmune hepatitis Family History other Surgical History History of partial colectomy History of ileostomy History of coronary artery stent placement (10/24/18) Social History household members: spouse Smoking Status: Current some day smoker tobacco type: cigars how long ago did patient quit smoking: Notes remotely quit cigarette tobacco use (before 1984), occasional cigar. alcohol intake: current alcohol intake frequency: holidays/special occasions only substance use type: does not use Vital Signs Vital Signs Vital Signs: 01/14/25 13:46 01/14/25 15:00 01/14/25 17:00 Temperature Temperature Source Pulse Rate 69 71 67 Pulse Strength Respiratory Rate 16 13 Blood Pressure 150/86 H 150/92 H Blood Pressure Mean 104 111 Blood Pressure Source Monitor Monitor Blood Pressure Position Blood Pressure Location Pulse Ox 97 97 Oxygen Delivery Method Room (more content not included)... Normal [facility] Magnesiumon 01-15-2025 Magnesium [Mass/Vol] 2.2 mg/dL Normal 1.5-2.2 [facility] Comment on above: Performed By: #### L 501.080 #### [facility] [address] [place], [address] Modified Barium Swallow Stud n 01-15-2025 Modified Barium Swallow Study [facility] Speech Pathology [address] [place] [address] Modified Barium Swallow Study MR#: [id number] Acct: [id number] Name: WALDO ZEE Rep #: [id number] : 1960 64 From: Melissa Raya M.A., [facility] Modified Barium Swallow Patient Information Study Date: 01/15/25 Study Time: 10:30 Direct Billable Minutes: 112 Total Minutes procedure reportin Diagnosis: Acute CVA I63.9 Referring Physician: Ricardo Kay Reason for Referral: Assess swallow function, assess risk for aspiration, and determine recommendations for least restrictive diet textures and compensatory strategies to improve safety of swallow. Medical History: PMH: HTN, Hypothyroidism, History of colon cancer s/p partial colectomy ileostomy, NSTEMI 10/24/2018, DM type 2, Obesity, RLS, GERD, Atherosclerotic heart disease of [place] coronary artery without angina pectoris, ACS 10/24/2018 - See EMR for full PMH. The patient presented to [facility] ED 01/14/2025 with history of onset right-sided facial droop, right-sided weakness, and slurred speech. Stroke alert initiated. CT of the brain with no acute intracranial findings, CTA head and neck w/ no hemodynamically significant narrowing or large vessel occlusion of the head or neck vasculature. Patient was admitted to ICU for further CVA work up. Brain MRI 01/14/2025 revealed Acute left pontine infarction. ST consulted as part of CVA work up. BSE completed 01/14/2025, which revealed moderate oropharyngeal dysphagia and recommended soft and bite size textures / thin liquids w/ aspiration and pocketing-related precautions. CASE MANAGERS recommended MBSS today to further assess swallow function and aspiration risk given location of CVA and occ s/s of aspiration w/ liquids. 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 Lives at home w/ . Pt and jointly manage household finances and pt manages his own medications. At time of BSE, pt and mother denied concern for changes to cognition and language, just speech clarity. RN noted infrequent word finding difficulty. Current Diet Ordered: Soft and bite size textures / Thin liquids Dentition: Natural Teeth Mental Status: WNL Respiratory Status: Oxygenating on Room Air Penetration-Aspiration Scale Penetration-Aspiration Scale: OBJECTIVE ASSESSMENT OF SWALLOW FUNCTION (QUANTITATIVE ??? PER TRIAL): PENETRATION / ASPIRATION SCALE (CHEN): 1 = does not enter airway 2 = enters airway/above vocal folds/ejected 3 = enters airway/above vocal folds/not ejected 4 = enters airway/contacts vocal folds/ejected 5 = enters airway/contacts vocal folds/not ejected 6 = enters airway/below vocal folds/ejected 7 = enters airway/below vocal folds/not ejected despite effort 8 = enters airway/below vocal folds/no effort VIDEOFLOROSCOPIC SCALE SCORE (CHEN): Grade I = aspiration of material that has penetrated into the laryngeal vestibule, intact cough reflex Grade II = aspiration < 10 % of the bolus, intact cough reflex Grade III = aspiration of < 10 % of the bolus, reduced cough reflex or aspiration of > 10 % of the bolus, intact cough reflex Grade IV = aspiration of > 10 % of the bolus, reduced cough reflex Penetration-Aspiration Scale Score Thin Liquid via teaspoon: Result: 2= enter airway/above vocal folds/ejected Thin Liquid via teaspoon Trial 2: Result: 2= enter airway/above vocal folds/ejected Thin Liquid via single sip: straw: Result: 1= does not enter airway Thin Liquid via sequential sips:straw: Result: 5= enters airways/contacts vocal folds/not ejected Comment: Cued a hard cough and re-swallow due to absent reflexive cough or throat clear. Cough was not effective in expelling trace barium contrast from the laryngeal vestibule. [place] Thick Liquid via small single sip: cup: Result: 1= does not enter airway Pudding via teaspoon: Result: 1= does not enter airway Comment: Esophageal screen - Retention in the lower esophagus w/ retrograde flow to the middle esophagus. Thin Liquid via single sip: straw Trial 2: Result: 1= does not enter airway 1/2 Cookie: Result: 1= does not enter airway Thin Liquid via single sip: straw Trial 3: Result: 4= enters airway/contacts vocal folds/ejected Comment: Large sip Thin Liquid via single sip: straw Effortful swallow: Result: 2= enter airway/above vocal folds/ejected Oral Phase Labial Seal: Escape beyond interlabial space; no extension beyond sharon border Tongue Control During Bolus Hold: Posterior escape of greater than half of bolus Bolus Preparation/Mastication: Slow prolonged chewing/mashing with complete recollection Bolus Transport/Lingual Motion: Slowed tongue motion Oral Residue: Majority of bolus remaining (Piecemeal deglutition) Pharyngeal Phase Initiation of Pharyngeal Swallow: Bolus head in pyriforms Soft Palate Elevation: Trace column of contrast/air between soft palate and pharyngeal wall Laryngeal Elevation: Par (more content not included)... Normal [facility] Phosphoruson 01-15-2025 Phosphate [Mass/Vol] 2.3 mg/dL Low 2.7-4.5 [facility] Comment on above: Performed By: #### L 501.080 #### [facility] [address] [facility] [place], [address] Basic Metabolic Profile (BMP )on 01-14-2025 BUN/CRE 11.9 RATIO Normal 10-20 [facility] Comment on above: Performed By: #### L 100.0100, L500.4050, L500.4100 #### [facility] [address] [place], [address] Calcium [Mass/Vol] 9.3 mg/dL Normal 7.6-11.0 [facility] Comment on above: Performed By: #### L 100.0100, L500.4050, L500.4100 #### [facility] [address] [place], [address] Chloride [Moles/Vol] 100 mmol/L Normal 98-108 [facility] Comment on above: Performed By: #### L 100.0100, L500.4050, L500.4100 #### [facility] [address] [place], [address] CO2 [Moles/Vol] 22.7 mmol/L Normal 21.0-32.0 [facility] Comment on above: Performed By: #### L 100.0100, L500.4050, L500.4100 #### [facility] [address] [place], [address] Creatinine [Mass/Vol] 0.93 mg/dL Normal 0.70-1.20 [facility] Comment on above: Performed By: #### L 100.0100, L500.4050, L500.4100 #### [facility] [address] [place], [address] ECRCL 107.61 ml/min Normal 50-250 [facility] Comment on above: Performed By: #### L 100.0100, L500.4050, L500.4100 #### [facility] [address] [place], [address] GAP 14 Normal 5-15 [facility] Comment on above: Performed By: #### L 100.0100, L500.4050, L500.4100 #### [facility] [address] [place], [address] GFR/1.73 sq M.predicted among non-blacks MDRD (S/P/Bld) [Vol rate/Area] 93 mL/min/{1.73_m2} Normal >60 [facility] Comment on above: Result Comment: mL/m in/1.73m2 CKD-EPI Creatinine Equation (2020) Performed By: #### L 100.0100, L500.4050, L500.4100 #### [facility] [address] [place], [address] Glucose [Mass/Vol] 139 mg/dL High 70-99 [facility] Comment on above: Performed By: #### L 100.0100, L500.4050, L500.4100 #### [facility] [address] [place], [address] Potassium [Moles/Vol] 3.7 mmol/L Normal 3.3-5.1 [facility] Comment on above: Performed By: #### L 100.0100, L500.4050, L500.4100 #### [facility] [address] [place], [address] Sodium [Moles/Vol] 137 mmol/L Normal 133-145 [facility] Comment on above: Performed By: #### L 100.0100, L500.4050, L500.4100 #### [facility] [address] [place], [address] Urea nitrogen [Mass/Vol] 11 mg/dL Normal 4-19 [facility] Comment on above: Performed By: #### L 100.0100, L500.4050, L500.4100 #### [facility] [address] [place], [address] Bedside Glucoseon 01-14-2025 FINGERSTICK GLU 150 mg/dL High 74-106 [facility] Comment on above: Result Comment: KEVIN GEMENT OF PATIENT CARE PER NURSING PROTOCOL Performed By: #### L 100.0100, L500.4050, L500.4100 #### [facility] [address] [place], [address] FINGERSTICK GLU 130 mg/dL High 74-106 [facility] Comment on above: Result Comment: KEVIN GEMENT OF PATIENT CARE PER NURSING PROTOCOL Performed By: #### L 501.080 #### [facility] [address] [place], [address] FINGERSTICK GLU 126 mg/dL High 74-106 [facility] Comment on above: Result Comment: KEVIN GEMENT OF PATIENT CARE PER NURSING PROTOCOL Performed By: #### L 100.0100, L500.4050, L500.4100 #### [facility] [address] [place], [address] FINGERSTICK GLU 145 mg/dL High 74-106 [facility] Comment on above: Result Comment: KEVIN GEMENT OF PATIENT CARE PER NURSING PROTOCOL Performed By: #### L 501.080 #### [facility] [address] [place], [address] FINGERSTICK GLU 146 mg/dL High 74-106 [facility] Comment on above: Result Comment: KEVIN BROWNMARIANO OF PATIENT CARE PER NURSING PROTOCOL Performed By: #### L 501.080 #### [facility] [address] [place], [address] Brain without Contraston Brain without Contrast [facility] Imaging Services [address] [place] [address] Brain without Contrast MR#: [id number] Acct: [id number] Name: WALDO ZEE Rep #: [id number] : 1960 M 64 From: Nick Johnson MD PCP: Dr. Bettye Powell MD Status: ADM IN Study: Brain without Contrast Date of Exam: 01/14/25 Exam# [id number] Ordering Dr: Gladys Marin MD PROCEDURE: BRAIN WITHOUT CONTRAST 01/14/2025 REASON FOR EXAM: Right facial droop, right-sided weakness, slurred speech. History of colon cancer. TECHNIQUE: Noncontrast brain MRI. Multiplanar and multisequence images were obtained. COMPARISON: CT head without contrast and CTA head and neck, 01/14/2025. FINDINGS: There is a normal sulcal pattern and gyral configuration. The westbrook-white differentiation is well preserved. The ventricles and basilar cisterns are normal. There are normal flow voids demonstrated in the recognized intracranial vessels. There is an area of restricted diffusion in the left side of the brainstem at the mid lily level, abutting the midline, consistent with an acute infarction. There is no significant associated edema or mass effect. The cerebellum is unremarkable. The cerebellar pontine angles are normal. The craniovertebral junction is normal. The sella and suprasellar regions are normal. The orbits and retro-orbital regions are unremarkable. The nasal septum is midline. There is mucoperiosteal thickening of the left maxillary sinus. There is a large mucous retention cyst in the left maxillary sinus. The mastoid air cells are clear. There is normal bone marrow signal in the skull base and calvarium. MRI/Brain without Contrast IMPRESSION: 1. Acute left pontine infarction. 2. Other findings as noted. Findings were called to the [facility] ICU on the afternoon of 01/14/2025 at 1:15 p.m. Reading Location: [id number] CC: Dr. Gladys Marin MD; Dr. Bettye Powell MD Law Firm Consultant: Signed Normal [facility] CBC W/Diff, Automatedon Absolute Lymph 1.65 X10 3/uL Normal 0.83-4.51 [facility] Comment on above: Performed By: #### L 100.0100, L500.4050, L500.4100 #### [facility] [address] [place], [address] Absolute Neut 7.7 X10 3/uL Normal 2.0-7.7 [facility] Comment on above: Performed By: #### L 100.0100, L500.4050, L500.4100 #### [facility] [address] [place], [address] Basophils/100 WBC (Bld) 0.7 % Normal 0-1 [facility] Comment on above: Performed By: #### L 100.0100, L500.4050, L500.4100 #### [facility] [address] [place], [address] Eosinophils/100 WBC (Bld) 2.2 % Normal 0-5 [facility] Comment on above: Performed By: #### L 100.0100, L500.4050, L500.4100 #### [facility] [address] [place], [address] Erythrocyte distribution width (RBC) [Ratio] 15.2 % High 11.6-14.6 [facility] Comment on above: Performed By: #### L 100.0100, L500.4050, L500.4100 #### [facility] [address] [place], [address] Hematocrit (Bld) [Volume fraction] 37.6 % Low 40-54 [facility] Comment on above: Performed By: #### L 100.0100, L500.4050, L500.4100 #### [facility] [address] [place], [address] Hemoglobin (Bld) [Mass/Vol] 12.0 g/dL Low 13.0-16.5 [facility] Comment on above: Performed By: #### L 100.0100, L500.4050, L500.4100 #### [facility] [address] [place], [address] IG% 0.300 Normal 0.0-0.9 [facility] Comment on above: Result Comment: IG% - Immature Granulocytes (promyelocytes, myelocytes and metamyelocytes) > 1% indicates that a LEFT SHIFT is Present. Performed By: #### L 100.0100, L500.4050, L500.4100 #### [facility] [address] [place], [address] Lymphocytes/100 WBC (Bld) 15.8 % Low 19-41 [facility] Comment on above: Performed By: #### L 100.0100, L500.4050, L500.4100 #### [facility] [address] [place], [address] MCH (RBC) [Entitic mass] 25.4 pg Low 27.0-32.0 [facility] Comment on above: Performed By: #### L 100.0100, L500.4050, L500.4100 #### [facility] [address] [place], [address] MCHC (RBC) [Mass/Vol] 31.9 g/dL Low 32-36 [facility] Comment on above: Performed By: #### L 100.0100, L500.4050, L500.4100 #### [facility] [address] [place], [address] MCV (RBC) [Entitic vol] 79.5 fL Low 80-94 [facility] Comment on above: Performed By: #### L 100.0100, L500.4050, L500.4100 #### [facility] [address] [place], [address] Monocytes/100 WBC (Bld) 7.3 % Normal 0-10 [facility] Comment on above: Performed By: #### L 100.0100, L500.4050, L500.4100 #### [facility] [address] [place], [address] Neutrophils/100 WBC (Bld) 73.7 % High 47-70 [facility] Comment on above: Performed By: #### L 100.0100, L500.4050, L500.4100 #### [facility] [address] [place], [address] Nucleated RBC (Bld) [#/Vol] 0 10*3/uL Normal 0-5 [facility] Comment on above: Performed By: #### L 100.0100, L500.4050, L500.4100 #### [facility] [address] [place], [address] Platelet mean volume (Bld) [Entitic vol] 10.0 fL Normal 6.2-12.0 [facility] Comment on above: Performed By: #### L 100.0100, L500.4050, L500.4100 #### [facility] [address] [place], [address] Platelets (Bld) [#/Vol] 275 10*3/uL Normal 150-450 [facility] Comment on above: Performed By: #### L 100.0100, L500.4050, L500.4100 #### [facility] [address] [place], [address] RBC (Bld) [#/Vol] 4.73 10*6/uL Normal 4.6-6.2 [facility] Comment on above: Performed By: #### L 100.0100, L500.4050, L500.4100 #### [facility] [address] [place], [address] RDW SD 43.8 fl Normal 35.1-43.9 [facility] Comment on above: Performed By: #### L 100.0100, L500.4050, L500.4100 #### [facility] [address] [place], [address] WBC (Bld) [#/Vol] 10.4 10*3/uL Normal 4.4-11.0 [facility] Comment on above: Performed By: #### L 100.0100, L500.4050, L500.4100 #### [facility] [address] [place], [address] Absolute Lymph 3.39 X10 3/uL Normal 0.83-4.51 [facility] Comment on above: Performed By: #### L 100.0100, L500.4050, L500.4100 #### [facility] [address] [place], [address] Absolute Neut 7.4 X10 3/uL Normal 2.0-7.7 [facility] Comment on above: Performed By: #### L 100.0100, L500.4050, L500.4100 #### [facility] [address] [place], [address] Basophils/100 WBC (Bld) 0.6 % Normal 0-1 [facility] Comment on above: Performed By: #### L 100.0100, L500.4050, L500.4100 #### [facility] [address] [place], [address] Eosinophils/100 WBC (Bld) 3.0 % Normal 0-5 [facility] Comment on above: Performed By: #### L 100.0100, L500.4050, L500.4100 #### [facility] [address] [place], [address] Erythrocyte distribution width (RBC) [Ratio] 15.3 % High 11.6-14.6 [facility] Comment on above: Performed By: #### L 100.0100, L500.4050, L500.4100 #### [facility] [address] [place], [address] Hematocrit (Bld) [Volume fraction] 40.4 % Normal 40-54 [facility] Comment on above: Performed By: #### L 100.0100, L500.4050, L500.4100 #### [facility] [address] [place], [address] Hemoglobin (Bld) [Mass/Vol] 12.8 g/dL Low 13.0-16.5 [facility] Comment on above: Performed By: #### L 100.0100, L500.4050, L500.4100 #### [facility] [address] [place], [address] IG% 0.400 Normal 0.0-0.9 [facility] Comment on above: Result Comment: IG% - Immature Granulocytes (promyelocytes, myelocytes and metamyelocytes) > 1% indicates that a LEFT SHIFT is Present. Performed By: #### L 100.0100, L500.4050, L500.4100 #### [facility] [address] [place], [address] Lymphocytes/100 WBC (Bld) 27.2 % Normal 19-41 [facility] Comment on above: Performed By: #### L 100.0100, L500.4050, L500.4100 #### [facility] [address] [place], [address] MCH (RBC) [Entitic mass] 25.3 pg Low 27.0-32.0 [facility] Comment on above: Performed By: #### L 100.0100, L500.4050, L500.4100 #### [facility] [address] [place], [address] MCHC (RBC) [Mass/Vol] 31.7 g/dL Low 32-36 [facility] Comment on above: Performed By: #### L 100.0100, L500.4050, L500.4100 #### [facility] [address] [place], [address] MCV (RBC) [Entitic vol] 80.0 fL Normal 80-94 [facility] Comment on above: Performed By: #### L 100.0100, L500.4050, L500.4100 #### [facility] [address] [place], [address] Monocytes/100 WBC (Bld) 9.5 % Normal 0-10 [facility] Comment on above: Performed By: #### L 100.0100, L500.4050, L500.4100 #### [facility] [address] [place], [address] Neutrophils/100 WBC (Bld) 59.3 % Normal 47-70 [facility] Comment on above: Performed By: #### L 100.0100, L500.4050, L500.4100 #### [facility] [address] [place], [address] Nucleated RBC (Bld) [#/Vol] 0 10*3/uL Normal 0-5 [facility] Comment on above: Performed By: #### L 100.0100, L500.4050, L500.4100 #### [facility] [address] [place], [address] Platelet mean volume (Bld) [Entitic vol] 10.0 fL Normal 6.2-12.0 [facility] Comment on above: Performed By: #### L 100.0100, L500.4050, L500.4100 #### [facility] [address] [place], [address] Platelets (Bld) [#/Vol] 319 10*3/uL Normal 150-450 [facility] Comment on above: Performed By: #### L 100.0100, L500.4050, L500.4100 #### [facility] [address] [place], [address] RBC (Bld) [#/Vol] 5.05 10*6/uL Normal 4.6-6.2 [facility] Comment on above: Performed By: #### L 100.0100, L500.4050, L500.4100 #### [facility] [address] [place], [address] RDW SD 44.1 fl High 35.1-43.9 [facility] Comment on above: Performed By: #### L 100.0100, L500.4050, L500.4100 #### [facility] [address] [place], [address] WBC (Bld) [#/Vol] 12.5 10*3/uL High 4.4-11.0 [facility] Comment on above: Performed By: #### L 100.0100, L500.4050, L500.4100 #### [facility] [address] [place], [address] Chest 1 Viewon 01-14-2025 Chest 1 View [facility] [address] [place] [address] Chest 1 View MR#: [id number] Acct: [id number] Name: WALDO ZEE Rep #: [id number] : 1960 M 64 From: Josias Cha MD PCP: Dr. Bettye Powell MD Status: ADM IN Study: Chest 1 View Date of Exam: 01/14/25 Exam# [id number] Ordering Dr: Gildardo Henley DO PROCEDURE: CHEST 1 VIEW 01/14/2025 REASON FOR EXAM: NEURO DEFICIT, ACUTE, STROKE SUSPECTED TECHNIQUE: Frontal view of the chest. COMPARISON: Chest radiograph 05/11/2021 FINDINGS: Hardware: None Heart: Cardiac and mediastinal contours are stable. Lungs: No significant change in the appearance of the lungs. Bones: Degenerative changes are identified within the thoracic spine. RAD/Chest 1 View IMPRESSION: No evidence of an acute cardiopulmonary abnormality. Reading Location: [id number] CC: Dr. Bettye Powell MD; Gildardo [place] DO Law [employer] Consultant: Signed Normal [facility] Comprehensive Metabolic Prof ilon 01-14-2025 Albumin [Mass/Vol] 3.8 g/dL Normal 3.4-4.8 [facility] Comment on above: Order Comment: Comme nts: NPO at ID prior to lipid panel Performed By: #### L 100.0100, L500.4050, L500.4100 #### [facility] [address] [place], [address] Albumin/Globulin [Mass ratio] 1.4 {ratio} Normal 0.9-2.4 [facility] Comment on above: Order Comment: Comme nts: NPO at ID prior to lipid panel Performed By: #### L 100.0100, L500.4050, L500.4100 #### [facility] [address] [place], [address] ALK PHOS 73 U/L Normal 40-129 [facility] Comment on above: Order Comment: Comme nts: NPO at [place] prior to lipid panel Performed By: #### L 100.0100, L500.4050, L500.4100 #### [facility] [address] [place], [address] ALT [Catalytic activity/Vol] 38 U/L Normal <=46 [facility] Comment on above: Order Comment: Comme nts: NPO at [place] prior to lipid panel Performed By: #### L 100.0100, L500.4050, L500.4100 #### [facility] [address] [place], [address] AST [Catalytic activity/Vol] 38 U/L Normal <=37 [facility] Comment on above: Order Comment: Comme nts: NPO at [place] prior to lipid panel Performed By: #### L 100.0100, L500.4050, L500.4100 #### [facility] [address] [place], [address] Bilirubin [Mass/Vol] 0.33 mg/dL Normal 0.00-1.30 [facility] Comment on above: Order Comment: Comme nts: NPO at MN prior to lipid panel Performed By: #### L 100.0100, L500.4050, L500.4100 #### [facility] [address] [place], [address] BUN/CRE 12.5 RATIO Normal 10-20 [facility] Comment on above: Order Comment: Comme nts: NPO at [place] prior to lipid panel Performed By: #### L 100.0100, L500.4050, L500.4100 #### [facility] [address] [place], [address] Calcium [Mass/Vol] 9.0 mg/dL Normal 7.6-11.0 [facility] Comment on above: Order Comment: Comme nts: NPO at [place] prior to lipid panel Performed By: #### L 100.0100, L500.4050, L500.4100 #### [facility] [address] [place], [address] Chloride [Moles/Vol] 102 mmol/L Normal 98-108 [facility] Comment on above: Order Comment: Comme nts: NPO at [place] prior to lipid panel Performed By: #### L 100.0100, L500.4050, L500.4100 #### [facility] [address] [place], [address] CO2 [Moles/Vol] 22.1 mmol/L Normal 21.0-32.0 [facility] Comment on above: Order Comment: Comme nts: NPO at [place] prior to lipid panel Performed By: #### L 100.0100, L500.4050, L500.4100 #### [facility] [address] [place], [address] Creatinine [Mass/Vol] 0.83 mg/dL Normal 0.70-1.20 [facility] Comment on above: Order Comment: Comme nts: NPO at [place] prior to lipid panel Performed By: #### L 100.0100, L500.4050, L500.4100 #### [facility] [address] [place], [address] ECRCL 120.68 ml/min Normal 50-250 [facility] Comment on above: Order Comment: Comme nts: NPO at [place] prior to lipid panel Performed By: #### L 100.0100, L500.4050, L500.4100 #### [facility] [address] [place], [address] GAP 12 Normal 5-15 [facility] Comment on above: Order Comment: Comme nts: NPO at [place] prior to lipid panel Performed By: #### L 100.0100, L500.4050, L500.4100 #### [facility] [address] [place], [address] GFR/1.73 sq M.predicted among non-blacks MDRD (S/P/Bld) [Vol rate/Area] 99 mL/min/{1.73_m2} Normal >60 [facility] Comment on above: Order Comment: Comme nts: NPO at MN prior to lipid panel Result Comment: mL/m in/1.73m2 CKD-EPI Creatinine Equation (2020) Performed By: #### L 100.0100, L500.4050, L500.4100 #### [facility] [address] [place], [address] Globulin (S) [Mass/Vol] 2.8 g/dL Normal 2.2-4.2 [facility] Comment on above: Order Comment: Comme nts: NPO at MN prior to lipid panel Performed By: #### L 100.0100, L500.4050, L500.4100 #### [facility] [address] [place], [address] Glucose [Mass/Vol] 149 mg/dL High 70-99 [facility] Comment on above: Order Comment: Comme nts: NPO at MN prior to lipid panel Performed By: #### L 100.0100, L500.4050, L500.4100 #### [facility] [address] [place], [address] Potassium [Moles/Vol] 4.2 mmol/L Normal 3.3-5.1 [facility] Comment on above: Order Comment: Comme nts: NPO at MN prior to lipid panel Performed By: #### L 100.0100, L500.4050, L500.4100 #### [facility] [address] [place], [address] Sodium [Moles/Vol] 137 mmol/L Normal 133-145 [facility] Comment on above: Order Comment: Comme nts: NPO at MN prior to lipid panel Performed By: #### L 100.0100, L500.4050, L500.4100 #### [facility] [address] [place], [address] T PROT 6.7 g/dL Normal 5.9-8.4 [facility] Comment on above: Order Comment: Comme nts: NPO at [place] prior to lipid panel Performed By: #### L 100.0100, L500.4050, L500.4100 #### [facility] [address] [place], [address] Urea nitrogen [Mass/Vol] 10 mg/dL Normal 4-19 [facility] Comment on above: Order Comment: Comme nts: NPO at [place] prior to lipid panel Performed By: #### L 100.0100, L500.4050, L500.4100 #### [facility] [address] [place], [address] Echo Complete W/ Contraston 01-14-2025 Echo Complete W/ Contrast [facility] [address] [place] [address] Echo Complete W/ Contrast 01/14/25 0736 MR#: [id number] Acct: [id number] Name: WALDO ZEE Rep #: [id number] : 1960 64 From: Kinsey Sinclair MD Attending Dr: Dr. Ricardo Kay MD Status: ADM IN Ordering Dr: Gladys Marin MD Date: 01/14/25 Location: ICU Sex: M C Admitted: 01/14/25 Reason For Study Reason For Study: TIA/CVA Procedure This was a 2D Doppler, Color Flow transthoracic echocardiogram. The study was technically difficult. Due to body habitus, deep respirations leg cramps. Contrast injection was performed. Exam performed portable in ICU/CCU. Left Ventricle Normal LV size. Mild concentric left ventricular hypertrophy. The LV systolic function is normal. EF is 65 %. Stage 1 diastolic dysfunction. Right Ventricle Normal right ventricle. Atria The left and right atria are normal. Hypermobile interatrial septum. Bubble contrast study nondiagnostic for PFO/ASD. Mitral Valve Trivial mitral valve insufficiency. Tricuspid Valve Trivial tricuspid valve insufficiency. Unable to estimate RV systolic pressure due to insufficient tricuspid regurgitant envelope. Aortic Valve Trisinus/trileaflet aortic valve. Pulmonic Valve The pulmonic valve is not well visualized. Great Vessels Atherosclerotic aortic root with mild calcification. Pericardium/Pleural No pericardial effusion. Medication Diluted definity 4.0ml given slow IV push to enhance endocardial definition. Performed a rapid injection of agitated mix of 9 cc saline and 1cc air to assess for atrial septal defect. MMode/2D Measurements Calculations LVIDd: 4.7 cm IVSd: 1.2 cm Ao root diam: 3.5 cm LVIDs: 2.9 cm LVPWd: 1.2 cm RVDd: 2.8 cm FS: 37.3 % LAV(MOD-sp4): 33.6 ml LVAd ap4: 32.7 cm2 SV(MOD-sp4): 67.6 ml LVLd ap4: 8.9 cm SI(MOD-sp4): 28.7 ml/m2 EDV(MOD-sp4): 98.9 ml EDV(sp4-el): 102.1 ml LVAs ap4: 16.4 cm2 LVLs ap4: 7.0 cm ESV(MOD-sp4): 31.3 ml ESV(sp4-el): 32.5 ml EF(MOD-sp4): 68.3 % EF(sp4-el): 68.2 % SV(sp4-el): 69.7 ml LA A4 area: 13.9 cm2 LA dimension(2D): 4.0 cm RA A4 area: 14.1 cm2 TAPSE: 2.3 cm Time Measurements MV dec time: 0.22 sec Doppler Measurements Calculations MV E max bhavesh: 61.2 cm/sec Lat Peak E' Bhavesh: 17.5 cm/sec Med Peak E' Bhavesh: 8.2 cm/sec MV A max bhavesh: 84.0 cm/sec E/E' lat: 3.5 E/E' med: 7.5 MV E/A: 0.73 MV V2 max: 86.8 cm/sec MV P1/2t max bhavesh: 67.6 cm/sec Ao V2 max: 137.4 cm/sec MV max P.0 mmHg MV P1/2t: 67.5 msec Ao max P.6 mmHg MV V2 mean: 41.6 cm/sec MV dec slope: 293.2 cm/sec2 Ao V2 mean: 82.4 cm/sec MV mean P.85 mmHg MVA(P1/2t): 3.3 cm2 Ao mean P.1 mmHg MV V2 VTI: 21.2 cm Ao V2 VTI: 21.4 cm AV (velocity ratio): 0.76 LV V1 max: 100.0 cm/sec PA V2 max: 132.1 cm/sec TR max bhavesh: 229.9 cm/sec LV V1 max P.0 mmHg PA V2 mean: 78.4 cm/sec TR max P.1 mmHg LV V1 mean P.8 mmHg PA V2 VTI: 21.0 cm LV V1 mean: 63.0 cm/sec LV V1 VTI: 16.2 cm ECHO/Echo Complete W/ Contrast Interpretation Summary The LV systolic function is normal. EF is 65 %. Stage 1 diastolic dysfunction. Hypermobile interatrial septum. Bubble contrast study nondiagnostic for PFO/ASD. Atherosclerotic aortic root with mild calcification. The study was technically difficult. Ordering Physician: Gladys Marin Referring Physician: Bettye Powell Performed By: Oma Stewatr, RDCS, RVT 01/14/258 Date Kinsey Sinclair MD CC: Dr. Gladys Marin MD; Dr. Bettye Powell MD; Dr. Ricardo Kay MD Date Dictated: 01/14/25 0736 Date Transcribed: 01/14/251117 Law Firm Consultant: Signed Normal [facility] Emergency Department Summary on 01-14-2025 Emergency Department Summary [facility] System Medical Records Department [address] [place] [address] Emergency Department Summary 01/14/25 MR#: [id number] Acct: [id number] Name: WALDO ZEE Rep #: [id number] : 1960 64 From: Gildardo Henley DO PCP: Dr. Bettye Pwoell MD Status:ADM IN [facility] History of Present Illness Chief Complaint: Stroke Alert Informant: patient, spouse/S.O. and EMS Narrative Narrative: Patient is a 64-year-old male with past medical history of hypertension type 2 diabetes and coronary artery disease. According to he was last known well around 11 PM. She states that the patient awoke secondary to sensation of eye burning and was attempting to get up so he could treat this and at that time realized he could not move his right side and was slurring his speech. Secondary to this EMS was called. EMS states when they arrived the patient is awake and alert but with dysarthria and right sided paralysis. They report his blood sugar is approximate 140. However based on the history and exam there is high concern for acute stroke and therefore stroke alert was activated prior to arrival. According to patient and other than having eye irritation earlier this evening he has been at his baseline health without sick symptoms or change in medication PFSH [facility] Medical History Essential hypertension Hypothyroidism History of colon cancer History of non-ST elevation myocardial infarction (NSTEMI) (10/24/18) Type 2 diabetes mellitus Obesity RLS (restless legs syndrome) GERD (gastroesophageal reflux disease) Atherosclerotic heart disease of [place] coronary artery without angina pectoris ACS (acute coronary syndrome) (10/24/18) Home Medications ???Medication ???Instructions ???Recorded ???Last Taken ???Type ergocalciferol (vitamin D2) 1,250 50,000 mg PO WE vitamin 10/24/18 10/17/18 History mcg (50,000 unit) capsule latanoprost 0.005 % eye drops 0.005 drp EACH EYE QHS glaucoma 10/23/18 History multivitamin 1 ea PO DAILY vitamin 10/24/18 History aspirin 81 mg tablet,delayed 81 mg PO DAILY@0800 10/25/18 Unkno wn Rx release pantoprazole 40 mg tablet,delayed 40 mg PO DAILY 12/09/19 Unknown H istory release levothyroxine 50 mcg tablet 50 mcg PO DAILY 02/22/21 Unknown H istory metoprolol tartrate 25 mg tablet 12.5 mg (1/2 x 25 mg) PO BID #90 0 03/12/23 Unknown Rx tabs metformin 500 mg tablet 750 mg PO BID diabetes 03/18/24 Un known History nitroglycerin 0.4 mg sublingual 0.4 mg sublingual Q5-15M PRN chest 05/13/24 Unknown Rx tablet pain #25 tabs losartan 50 mg tablet 50 mg PO DAILY #90 tabs 09/29/24 U nknown Rx Allergy/AdvReac Type Severity Reaction Status Date / Time atorvastatin AdvReac Intermediate Acid reflux Verified 01/14/25 03:03 rosuvastatin (From Crestor) AdvReac Intermediate Acid Verified 01/14/25 03:03 reflux, cough Family History (Updated 01/14/25 @ 04:[address] Gladys Marin MD) Grandmother CAD (coronary artery disease) Sister Pulmonary embolism Mother Autoimmune hepatitis Surgical History History of partial colectomy History of ileostomy History of coronary artery stent placement (10/24/18) Social History (Updated 01/14/25 @ 04:[address] Gladys Marin MD) household members: spouse Smoking Status: Current some day smoker how long ago did patient quit smoking: Notes remotely quit cigarette tobacco use (before 1984), occasional cigar. alcohol intake: current alcohol intake frequency: holidays/special occasions only substance use type: does not use ROS ROS ED Constitutional Constitutional ED: Denies chills or fever(s) Eyes Eyes: Reports other Details: Positive eye irritation ; Denies change in vision or diplopia ENT ENT ED: Denies sore throat Cardiovascular Cardiovascular: Denies chest pain Respiratory/Chest Respiratory/Chest: Denies cough or dyspnea Gastrointestinal Gastrointestinal: Denies abdominal pain, diarrhea, nausea or vomiting Genitourinary Genitourinary ED: Denies dysuria Musculoskeletal Musculoskeletal: Denies myalgias Integumentary Denies rash Neurologic Neurologic: Reports paresthesias and weakness; Denies headache(s) Hematologic/Lymphatic Hematologic/Lymphatic: Denies easy bleeding or easy bruising EXAM Physical Exam Const Vital Signs: 01/14/25 03:03 01/14/25 03:12 01/14/25 03:30 Temperature 98.2 F Temperature Source Oral Pulse Rate 72 74 Respiratory Rate 20 H 20 H Blood Pressure 160/89 H 147/90 H Blood Pressure Mean 112 109 Pulse Ox 95 99 Oxygen Delivery Method Room Air Room Air Room Air 01/14/25 04:00 Temperature Temperature (more content not included)... Normal [facility] H AND P Exam - Hospitaliston 01-14-2025 H&P Exam - Hospitalist [facility] Medical Records Department [address] [place] [address] H P Exam - Hospitalist 01/14/25 0401 MR#: [id number] Acct: [id number] Name: WALDO ZEE Rep #: [id number] : 1960 64 From: Gladys Marin MD PCP: Dr. Bettye Powell MD Status:ADM IN Location: ICU ICU-1 HPI - General General Date of Admission: 01/14/25 Date of Service: 01/14/25 Chief Complaint: Facial palsy, dysarthria, R sided weakness. HPI Narrative The patient is a 64 y/o M w/ PMHx: Chronic normocytic anemia, Obesity, GERD, RLS, Hypothyroidism, Hx Colon CA status post partial colectomy ileostomy HTN, HLD, Diabetes mellitus type II, CAD s/p PCI, Former tobacco use who presents to the [facility] ED on 01/14/2025 with history of onset right-sided facial droop, right-sided weakness and slurred speech with initial ED presentation NIH stroke scale assessment 841 facial palsy, 3 right arm, 3 right leg, 1 for mild to moderate dysarthria. Follow-up NIH stroke scale assessment at 330 noted to be 6 with 1 for minor paralysis, 2 for right upper extremity weakness, 2 for right lower extremity weakness and 1 for mild to moderate dysarthria totaling 6. Stroke alert initiated and patient administered tenecteplase. Patient went to bed approximately 11 PM the evening prior which was his last known well and woke up at 1:30 in the morning with symptoms never having occurred previously. Workup in the ED included T98.2, heart 72, BP 160/89, respiratory rate 20, 95% on room air with most recent repeat vitals heart rate 74, BP 147/90, respiratory rate 20, 99% room air, CBC with WBC 12.5, hemoglobin 12.8, MCV 80, platelet 319 without marked shift, unremarkable coags, BMP with glucose 139 otherwise not marked appearing, CT of the brain with no acute intracranial findings, CTA head and neck w/ no hemodynamically significant narrowing or large vessel occlusion of the head or neck vasculature, chest x-ray pending upon evaluation, EKG with SR without acute evidence of ischemia. NIH stroke scale assessment per neurology with 1 for minor paralysis, 7 total for right-sided weakness, 1 for mild to moderate dysarthria with a total of 9. Unfortunately patient was taking the out of the tenecteplase window. [facility] Medical History Essential hypertension Hypothyroidism History of colon cancer History of non-ST elevation myocardial infarction (NSTEMI) (10/24/18) Type 2 diabetes mellitus Obesity RLS (restless legs syndrome) GERD (gastroesophageal reflux disease) Atherosclerotic heart disease of [place] coronary artery without angina pectoris ACS (acute coronary syndrome) (10/24/18) Home Medications ???Medication ???Instructions ???Recorded ???Last Taken ???Type ergocalciferol (vitamin D2) 1,250 50,000 mg PO WE vitamin 10/24/18 10/17/18 History mcg (50,000 unit) capsule latanoprost 0.005 % eye drops 0.005 drp EACH EYE QHS glaucoma 10/23/18 History multivitamin 1 ea PO DAILY vitamin 10/24/18 History aspirin 81 mg tablet,delayed 81 mg PO DAILY@0800 10/25/18 Unkno wn Rx release pantoprazole 40 mg tablet,delayed 40 mg PO DAILY 12/09/19 Unknown H istory release levothyroxine 50 mcg tablet 50 mcg PO DAILY 02/22/21 Unknown H istory metoprolol tartrate 25 mg tablet 12.5 mg (1/2 x 25 mg) PO BID #90 0 03/12/23 Unknown Rx tabs metformin 500 mg tablet 750 mg PO BID diabetes 03/18/24 Un known History nitroglycerin 0.4 mg sublingual 0.4 mg sublingual Q5-15M PRN chest 05/13/24 Unknown Rx tablet pain #25 tabs losartan 50 mg tablet 50 mg PO DAILY #90 tabs 09/29/24 U nknown Rx Allergy/AdvReac Type Severity Reaction Status Date / Time atorvastatin AdvReac Intermediate Acid reflux Verified 01/14/25 03:03 rosuvastatin (From Crestor) AdvReac Intermediate Acid Verified 01/14/25 03:03 reflux, cough Family History (Updated 01/14/25 @ 04:[address] Gladys Marin MD) Grandmother CAD (coronary artery disease) Sister Pulmonary embolism Mother Autoimmune hepatitis other (Patient does not know his father or paternal family history.) Surgical History History of partial colectomy History of ileostomy History of coronary artery stent placement (10/24/18) Social History (Updated 01/14/25 @ 04:[address] Gladys Marin MD) household members: spouse Smoking Status: Current some day smoker how long ago did patient quit smoking: Notes remotely quit cigarette tobacco use (before 1984), occasional cigar. alcohol intake: current alcohol intake frequency: holidays/special occasions only substance use type: does not use Vital Signs Vital Signs Vital Signs: 01/14/25 03:03 01/14/25 03:12 01/14/25 03:30 Temperature 98.2 F T (more content not included)... Normal [facility] Hemoglobin A1con 01-14-2025 HbA1c (Bld) [Mass fraction] 7.5 % High <=5.6 [facility] Comment on above: Result Comment: Norm al < 5.7 % Prediabetic 5.7 - 6.4 % Diabetic >or= 6.5 % Please note range changes. Performed By: #### L 100.0100, L500.4050, L500.4100 #### [facility] [address] [place], [place], [id number] Lipid Profileon 01-14-2025 CHOL:HDL 4.68 Normal [facility] Comment on above: Order Comment: Comme nts: NPO at ID prior to lipid panel Performed By: #### L 100.0100, L500.4050, L500.4100 #### [facility] [address] [place], [address] Cholesterol [Mass/Vol] 188 mg/dL Normal <=200 [facility] Comment on above: Order Comment: Comme nts: NPO at MN prior to lipid panel Result Comment: Chol esterol level, Desirable <200 mg/dL Borderline high cholesterol 200-239 mg/dL High cholesterol >=240 mg/dL Recommendations of the NCEP Adult Treatment Panel for the following risk-cutoff thresholds for the [place] population. Performed By: #### L 100.0100, L500.4050, L500.4100 #### [facility] [address] [place], [address] Cholesterol in HDL [Mass/Vol] 40 mg/dL Normal [facility] Comment on above: Order Comment: Comme nts: NPO at ID prior to lipid panel Result Comment: Marce onal Cholesterol Education Program (NCEP) guidelines: <40 mg/dL: Low HDL-cholesterol (major risk factor for CHD) >= 60 mg/dL: High HDL-cholesterol (negative risk factor for CHD) HDL-cholesterol is affected by a number of factors, e.g. smoking, exercise, hormones, sex and age. Performed By: #### L 100.0100, L500.4050, L500.4100 #### [facility] [address] [place], [address] Cholesterol in LDL [Mass/Vol] 125 mg/dL Normal [facility] Comment on above: Order Comment: Comme nts: NPO at MN prior to lipid panel Result Comment: Bord thnljl=647-753 mg/dL Higher Oatd=522 mg/dL or greater Performed By: #### L 100.0100, L500.4050, L500.4100 #### [facility] [address] [place], [address] Cholesterol in VLDL [Mass/Vol] 23 mg/dL Normal 5-40 [facility] Comment on above: Order Comment: Comme nts: NPO at MN prior to lipid panel Performed By: #### L 100.0100, L500.4050, L500.4100 #### [facility] [address] [place], [address] Triglyceride [Mass/Vol] 115 mg/dL Normal [facility] Comment on above: Order Comment: Comme nts: NPO at MN prior to lipid panel Result Comment: The drugs N-Acetylcysteine and Metamizole may falsely depress this assay. Normal range: <150 mg/dL Borderline High: 150-199 mg/dL High: 200-499 mg/dL Very High: >500 mg/dL Performed By: #### L 100.0100, L500.4050, L500.4100 #### [facility] [address] [place], [address] Magnesiumon 01-14-2025 Magnesium [Mass/Vol] 1.9 mg/dL Normal 1.5-2.2 [facility] Comment on above: Order Comment: Comme nts: may add to ED labs Performed By: #### L 501.5200, L501.9520 #### [facility] [address] [place], [address] Partial Thromboplast Timeon 01-14-2025 aPTT Coag (Bld) [Time] 29.9 s Normal 24.1-36.2 [facility] Comment on above: Performed By: #### L 100.0100, L500.4050, L500.4100 #### [facility] [address] [place], [address] Prothrombin Time w/INRon INR Coag (PPP) [Relative time] 1.0 {INR} Normal [facility] Comment on above: Performed By: #### L 100.0100, L500.4050, L500.4100 #### [facility] [address] [place], [address] PT Coag (PPP) [Time] 13.0 s Normal 11.7-14.9 [facility] Comment on above: Performed By: #### L 100.0100, L500.4050, L500.4100 #### [facility] [address] [place], [place], [address] STROKE Brain/Head without Co nton 01-14-2025 STROKE Brain/Head without Cont [facility] [address] [place] [address] STROKE Brain/Head without Cont MR#: [id number] Acct: [id number] Name: WALDO ZEE Rep #: [id number] : 1960 M 64 From: Josias Cha MD PCP: Dr. Bettye Powell MD Status: REG ER Study: STROKE Brain/Head without Cont Date of Exam: 0 01/14/25 Exam# [id number] Ordering Dr: Gildardo Henley DO PROCEDURE: STROKE BRAIN/HEAD WITHOUT CONT 01/14/2025 REASON FOR EXAM: NEURO DEFICIT, ACUTE, STROKE SUSPECTED TECHNIQUE: Head CT without intravenous contrast. Coronal and Sagittal reconstruction series were provided. One or more dose reduction techniques were used (e.g., Automated exposure control, adjustment of the mA and/or kV according to patient size, use of iterative reconstruction technique. RADIATION DOSE SUMMARY: CTDlvol: 45.0 mGy DLP: 864 mGycm COMPARISON: None FINDINGS: Brain: No acute intracranial hemorrhage, mass effect, or midline shift. [place]-white differentiation is maintained. CSF Spaces: Mild generalized cerebral atrophy Sinuses/Mastoids: Mucosal thickening and near-complete opacification of the left maxillary sinus. Bones: No displaced calvarial fracture. Trace nonobstructing debris in the right external auditory canal, likely cerumen. CT/STROKE Brain/Head without Cont IMPRESSION: 1. No acute intracranial abnormality. 2. Left maxillary sinus disease. Reading Location: [facility] CC: Dr. Bettye Powell MD; Gildardo Henley DO Law Firm Consultant: Signed Normal [facility] STROKE CTA Head AND Neck W/C onon 01-14-2025 STROKE CTA Head AND Neck W/Con [facility] [address] [place] [address] STROKE CTA Head AND Neck W/Con MR#: [id number] Acct: [id number] Name: WALDO ZEE Rep #: [id number] : 1960 M 64 From: Josias Cha MD PCP: Dr. Bettye Powell MD Status: REG ER Study: STROKE CTA Head AND Neck W/Con Date of Exam: 0 01/14/25 Exam# [id number] Ordering Dr: Gildardo Henley DO PROCEDURE: STROKE CTA HEAD AND NECK W/CON 01/14/2025 REASON FOR EXAM: NEURO DEFICIT, ACUTE, STROKE SUSPECTED TECHNIQUE: CTA imaging of the head and neck from the aortic arch to the skull vertex with out contrast and with intravenous contrast. Multiplanar and multisequence images were obtained. 3D post processing was performed One or more dose reduction techniques were used (e.g., Automated exposure control, adjustment of the mA and/or kV according to patient size, use of iterative reconstruction technique). RADIATION DOSE SUMMARY: CTDlvol: 20.6 mGy DLP: 853 mGycm COMPARISON: Same date CT head FINDINGS: Aortic Arch: Normal size and branching pattern. Mild atherosclerotic plaque. Brachiocephalic and Subclavians: Unremarkable RIGHT Carotid: Right CCA: Mild calcified plaque at the carotid bulb. Right ICA: Unremarkable. Maximum stenosis (NASCET): <50% Right ECA: Unremarkable. LEFT Carotid: Left CCA: Mild calcified and soft plaque. Left ICA: Mild calcified and soft plaque. Maximum stenosis (NASCET): <50% Left ECA: Unremarkable. Vertebrals: Left dominant. Arise from the subclavians. Both vertebrals form the basilar. RIGHT Vertebral: Unremarkable. LEFT Vertebral: Minimal calcified plaque. Anatomy: [place] of [place] anatomy is normal. Aneurysm or AVM: None identified Anterior cerebral arteries: Unremarkable: Middle cerebral arteries: Unremarkable. Basilar artery: Unremarkable. Posterior cerebral arteries: Unremarkable. Other major branches of the posterior circulation: Unremarkable. Major venous structures: Unremarkable. Other findings: Neck: No lymphadenopathy. Lungs: Lung apices are clear. Bones: Bones are unremarkable. CT/STROKE CTA Head AND Neck W/Con IMPRESSION: No hemodynamically significant narrowing or large vessel occlusion of the head or neck vasculature. Reading Location: [id number] CC: Dr. Bettye Powell MD; Gildardo Henley DO Law Firm Consultant: Signed Normal [facility] Thyroid Stim Hormone (TSH)on 01-14-2025 TSH 5.660 uIU/mL High 0.300-4.200 [facility] Comment on above: Order Comment: Comme nts: may add to ED labs Performed By: #### L 501.5200, L501.9520 #### [facility] [address] [place], [address] Urinalysis, Completeon 01-14 BACTERIA 0 SEEN Normal None Seen [facility] Comment on above: Order Comment: Comme nts: NPO at MN prior to lipid panel Performed By: #### L 100.0100, L500.4050, L500.4100 #### [facility] [address] [place], [address] EPI,SQUAMOUS 0 SEEN Normal 0-5 [facility] Comment on above: Order Comment: Comme nts: NPO at MN prior to lipid panel Performed By: #### L 100.0100, L500.4050, L500.4100 #### [facility] [address] [place], [address] Mucus Ql (Urine sed) 0 SEEN Normal [facility] Comment on above: Order Comment: Comme nts: NPO at MN prior to lipid panel Performed By: #### L 100.0100, L500.4050, L500.4100 #### [facility] [address] [place], [address] RBC 0 SEEN Normal 0-5 [facility] Comment on above: Order Comment: Comme nts: NPO at MN prior to lipid panel Performed By: #### L 100.0100, L500.4050, L500.4100 #### [facility] [address] [place], [address] WBC 0 SEEN Normal 0-5 [facility] Comment on above: Order Comment: Comme nts: NPO at ID prior to lipid panel Performed By: #### L 100.0100, L500.4050, L500.4100 #### [facility] [address] [place], [address] CNOVon 09-08-2024 CNOV Office Visit (INTMWS ) WALDO ZEE ([id number]) 1960 [facility] Date Time Provider Department 09/08/24 8:40 AM BETTYE POWELL INTMWS During your visit [...] stable. He has been to see an marketing services rep recently. He has been to see Michelle [...] Date ABDOMINAL SURGERY HX CARDIAC CATH 10/24/2018 [facility] with stent placement COLON SURGERY HX [...] ileostomy reversal PSA (EXTERNAL) 06/14/2015 normal (0.76) [facility] REMOVAL OF KIDNEY STONE 2022 FAMILY [...] tablet acetami (more content not included)... Normal [facility] CNPNon 03-20-2024 CNPN Telephone (INTMWS) WALDO ZEE ([id number]) 1960 [facility] Date Time Provider Department 03/20/24 LIZETH BRADFORD INTPatriciaWS During your visit today, we recorded the following information about you: Beatrice Grady LPN 03/20/2024 8:07 AM Signed ----- Message from Lizeth Bradford APRN.[employer] ST[employer]ELT sent at 03/19/2024 5:08 PM EDT ----- Please let the patient know as of right now the preliminary result of the ultrasound is negative for blood clots. I will contact him on My Chart once the final has resulted Lizeth Bradford APRN.[employer] ST[employer]ELT Beatrice GradyMADAY 03/20/2024 8:11 AM Signed Phoned patient and went over results, notes from Lizeth Bradford MANAGER PHOTO with understanding. Allergies As of Date: 03/20/2024 Noted Allergy Reaction ATORVASTATIN 03/15/2023 8 - GI Upset Comments: Cause acid reflux DUST MITES 11/11/2009 ROSUVASTATIN 03/15/2023 8 - GI Upset Comments: Cause acid reflux Date Reviewed: 03/19/2024 Reviewed by: Lizeth Bradford, HANNY.[employer] STAPLER WELT - Fully Assessed Reason for Visit: Results [...] [K43.2] 06/26/2018 06/02/2020 Coronary artery disease involving tan[place] marcano*06/02/2020 Fatty liver [K76.0] 02/08/2021 Morbid obesity (HCC) [E66.01] 02/08/2021 Burning sensation of feet [R20.8] 08/03/2023 History of colonic polyps [Z86.010] 08/31/2023 Encounter Status:Closed by BEATRICE GRADY on 03/20/24 [facility] CNOVon 03-19-2024 CNOV Office Visit (INTMWS ) WALDO ZEE ([id number]) 1960 [facility] Date Time Provider Department 03/19/24 10:00 AM LIZETH BRADFORD INTMWS During your visit today, we recorded the following information about you: Temperature Pulse Respiration Blood pressure 97 degrees 67/minute 16/minute 130/84 Weight 113.4 kg Lizeth Bradford, [employer] BRANDS INSPECTOR.[employer] STAPLER WELT 03/19/2024 10:39 AM Signed CC: Patient presents [...] ABDOMINAL SURGERY HX 10/24/2018: CARDIAC CATH Comment: [facility] with stent placement No date: COLON [...] reversal 06/14/2015: PSA (EXTERNAL) Comment: normal (0.76) [facility] 2022: REMOVAL OF KIDNEY STONE ALLERGIES [...] Vaping Use: (more content not included)... Normal [facility] LEG VEIN DVT UNL VAS LABo n 03-19-2024 LEG VEIN DVT UNL VAS LAB Non-Invasive Vascular Laboratory [facility] Lower Extremity Venous Duplex Unilateral - Left [...] and small saphenous vein. Technologist: Maricel Pantoja RVT [facility] Ordering physician: LIZETH BRADFORD Interpreting physician: Nam Limon MD, RAVEN Final CC [facility] : [id number] oDynamicsSISUID See Link below for Image Normal [facility] Cardiology Visit Reporton Cardiology Visit Report [facility] [address] [place] [address] OFFICE VISIT Date of Service: 03/18/24 MR#: [id number] Acct: [id number] Name: WALDO ZEE Rep #: [id number] : 1960 Provider: JUAN F Llanos Age/Sex: 63/M Location[facility] Status: Signed [facility] History of Present Illness Details: Waldo Zee [...] 99 Intake Visit Reasons: 1 Y FU Card Brusher Required: No Is patient in pain?: No [...] mg PO BID diabetes 03/18/24 03/18/24 History [facility] Medical History (Updated 03/18/24 @ 13:51 by Sherine ROGEL, PA) Essential hypertension Hypothyroidism History of colon cancer History of non-ST elevation myocardial infarction (NSTEMI) (10/24/18) Type 2 diabetes mellitus Obesity RLS (restless legs syndrome) GERD (gastroesophageal reflux disease) Atherosclerotic heart disease of tan[place] coronary artery without angina pectoris ACS (acute [...] [place] (more content not included)... Normal [facility] CNOVon 03-10-2024 CNOV Office Visit (INTMWS ) WALDO ZEE ([id number]) 1960 M [facility] Date Time Provider Department 03/10/24 9:20 [...] stable. He has been to see an marketing services rep recently. He has been to see Michelle [...] Date ABDOMINAL SURGERY HX CARDIAC CATH 10/24/2018 [facility] with stent placement COLON SURGERY HX [...] ileostomy reversal PSA (EXTERNAL) 06/14/2015 normal (0.76) [facility] REMOVAL OF KIDNEY STONE 2022 FAMILY [...] loss HEENT: (more content not included)... Normal [facility] 25(OH)D3 [facility] 2023 25-hydroxyvitamin D3 [Mass/Vol] 77.0 ng/mL Normal 31.0-80.0 [facility] Comment on above: Order Comment: Speci men Type: BLOOD SPECIMENOrdering Facility: [facility] Address: [address] [place] [address] Result Comment: Clas sification of 25 [place] Vitamin D status: Deficiency/Insufficiency: < or = 30 ng/ml. Sufficiency/Optimal Levels: 31-80 ng/mL Toxicity: > 100 ng/mL. Test performed by chemiluminescent immunoassay. Performed By: #### 1 989-3 ####[facility] LABIA [id number] [place] [address] [place] CBC panel Auto (Bld)on 03-08 Erythrocyte distribution width (RBC) [Ratio] 14.4 % Normal 11.5-15.0 [facility] Comment on above: Order Comment: Speci men Type: BLOOD SPECIMENOrdering Facility: [facility] Address: [address] [place] [address] Performed By: #### 5 8410-2 ####[facility] LABIA [id number] [place] [address] [place] Hematocrit (Bld) [Volume fraction] 41.9 % Normal 39.0-51.0 [facility] Comment on above: Order Comment: Speci men Type: BLOOD SPECIMENOrdering Facility: [facility] Address: [address] [place] [address] Performed By: #### 5 8410-2 ####[facility] LABCLIA [id number] [place] [address] [place] Hemoglobin (Bld) [Mass/Vol] 13.2 g/dL Normal 13.0-17.0 [facility] Comment on above: Order Comment: Speci men Type: BLOOD SPECIMENOrdering Facility: [facility] Address: [address] [place] [address] Performed By: #### 5 8410-2 ####[facility] LABCLIA [id number] [place] [address] [place] MCH (RBC) [Entitic mass] 26.4 pg Normal 26.0-34.0 [facility] Comment on above: Order Comment: Speci men Type: BLOOD SPECIMENOrdering Facility: [facility] Address: [address] [place] [address] Performed By: #### 5 8410-2 ####[facility] LABCLIA [id number] [place] [address] [place] MCHC (RBC) [Mass/Vol] 31.5 g/dL Normal 30.5-36.0 [facility] Comment on above: Order Comment: Speci men Type: BLOOD SPECIMENOrdering Facility: [facility] Address: [address] [place] [address] Performed By: #### 5 8410-2 ####[facility] LABCLIA [id number] [place] [address] [place] MCV (RBC) [Entitic vol] 83.8 fL Normal 80.0-100.0 [facility] Comment on above: Order Comment: Speci men Type: BLOOD SPECIMENOrdering Facility: [facility] Address: [address] [place] [address] Performed By: #### 5 8410-2 ####[facility] LABCLIA [id number] [place] [address] [place] Nucleated RBC (Bld) [#/Vol] 10*3/uL Normal <0.01 [facility] Comment on above: Order Comment: Speci men Type: BLOOD SPECIMENOrdering Facility: [facility] Address: [address] [place] [address] Performed By: #### 5 8410-2 ####[facility] LABIA [id number] [place] [address] [place] Platelet mean volume (Bld) [Entitic vol] 10.4 fL Normal 9.0-12.7 [facility] Comment on above: Order Comment: Speci men Type: BLOOD SPECIMENOrdering Facility: [facility] Address: [address] [place] [address] Performed By: #### 5 8410-2 ####[facility] [id number] [place] [address] [place] Platelets (Bld) [#/Vol] 275 10*3/uL Normal 150-400 [facility] Comment on above: Order Comment: Speci men Type: BLOOD SPECIMENOrdering Facility: [facility] Address: [address] [place] [address] Performed By: #### 5 8410-2 ####[facility] [id number] [place] [address] [place] RBC (Bld) [#/Vol] 5.00 10*6/uL Normal 4.20-6.00 [facility] Comment on above: Order Comment: Speci men Type: BLOOD SPECIMENOrdering Facility: [facility] Address: [address] [place] [address] Performed By: #### 5 8410-2 ####[facility] LABIA [id number] [place] [address] [place] WBC (Bld) [#/Vol] 9.47 10*3/uL Normal 3.70-11.00 [facility] Comment on above: Order Comment: Speci men Type: BLOOD SPECIMENOrdering Facility: [facility] Address: [address] [place] [address] Performed By: #### 5 8410-2 ####[facility] LABCLIA [id number] [place] [id number] [place] [facility] Comprehensive metabolic 2000 panelon 03-08-2024 Albumin [Mass/Vol] 4.2 g/dL Normal 3.9-4.9 [facility] Comment on above: Order Comment: Speci men Type: BLOOD SPECIMENOrdering Facility: [facility] Address: [address] [place] [address] Performed By: #### 2 4323-8, 84853-3, 3016-3 ####[facility] LABIA [id number] [place] [address] [place] ALP [Catalytic activity/Vol] 71 U/L Normal 38-113 [facility] Comment on above: Order Comment: Speci men Type: BLOOD SPECIMENOrdering Facility: [facility] Address: [address] [place] [address] Performed By: #### 2 4323-8, 16288-5, 6-3 ####[facility] LABIA [id number] [place] [address] [place] ALT [Catalytic activity/Vol] 18 U/L Normal 10-54 [facility] Comment on above: Order Comment: Speci men Type: BLOOD SPECIMENOrdering Facility: [facility] Address: [address] [place] [address] Performed By: #### 2 4323-8, 28308-1, 3016-3 ####[facility] LABCLIA [id number] [place] [id number] [place] Anion gap [Moles/Vol] 11 mmol/L Normal 8-15 [facility] Comment on above: Order Comment: Speci men Type: BLOOD SPECIMENOrdering Facility: [facility] Address: [address] [place], [place] [address] Performed By: #### 2 4323-8, 03383-2, 6-3 ####[facility] LABCLIA [id number] [place] [id number] [place] AST [Catalytic activity/Vol] 24 U/L Normal 14-40 [facility] Comment on above: Order Comment: Speci men Type: BLOOD SPECIMENOrdering Facility: [facility] Address: [address] [place], [place] [address] Performed By: #### 2 4323-8, 93912-2, 3015-3 ####[facility] LABCLIA [id number] [place] [address] [place] Bilirubin [Mass/Vol] 0.4 mg/dL Normal 0.2-1.3 [facility] Comment on above: Order Comment: Speci men Type: BLOOD SPECIMENOrdering Facility: [facility] Address: [address] [place] [address] Performed By: #### 2 4323-8, 34898-1, 3015-3 ####[facility] LABCLIA [id number] [place] [address] [place] Calcium [Mass/Vol] 9.5 mg/dL Normal 8.5-10.2 [facility] Comment on above: Order Comment: Speci men Type: BLOOD SPECIMENOrdering Facility: [facility] Address: [address] [place], [place] [address] Performed By: #### 2 4323-8, 47648-7, 3015-3 ####[facility] LABIA [id number] [place] [id number] [place] Chloride [Moles/Vol] 102 mmol/L Normal 98-107 [facility] Comment on above: Order Comment: Speci men Type: BLOOD SPECIMENOrdering Facility: [facility] Address: [address] [place], [place] [address] Performed By: #### 2 4323-8, 82145-1, 6-3 ####[facility] LABCLIA [id number] [place] [id number] [place] CO2 [Moles/Vol] 26 mmol/L Normal 22-30 [facility] Comment on above: Order Comment: Speci men Type: BLOOD SPECIMENOrdering Facility: [facility] Address: [address] [place] [address] Performed By: #### 2 4323-8, 22425-3, 3015-3 ####[facility] LABIA [id number] [place] [address] [place] Creatinine [Mass/Vol] 0.91 mg/dL Normal 0.73-1.22 [facility] Comment on above: Order Comment: Speci men Type: BLOOD SPECIMENOrdering Facility: [facility] Address: [address] [place] [address] Performed By: #### 2 4323-8, 34445-2, 3 ####[facility] LABIA [id number] [place] [address] [place] Creatinine and Glomerular filtration rate.predicted panel (S/P/Bld) 96 mL/min/1.73m??? Normal >=60 [facility] Comment on above: Order Comment: Speci men Type: BLOOD SPECIMENOrdering Facility: [facility] Address: [address] [place] [address] Result Comment: Jossie mated Glomerular Filtration Rate [...] actual GFR. Performed By: #### 2 4323-8, 17106-0, 6-3 ####[facility] LABCLIA [id number] [place] [address] [place] Glucose [Mass/Vol] 108 mg/dL High 74-99 [facility] Comment on above: Order Comment: Speci men Type: BLOOD SPECIMENOrdering Facility: [facility] Address: [address] [place] [address] Result Comment: The [place] Diabetes Association (ADA) provides guidance for cutoff [...] Standards of Medical Care in Diabetes 2016, [place] Diabetes Association. Diabetes Care. 2016.39(Suppl 1). Performed By: #### 2 4323-8, 08853-9, 6-3 ####[facility] LABIA [id number] [place] [address] [place] Potassium [Moles/Vol] 4.4 mmol/L Normal 3.7-5.1 [facility] Comment on above: Order Comment: Robyni men Type: BLOOD SPECIMENOrdering Facility: [facility] Address: [address] [place] [address] Performed By: #### 2 4323-8, 24428-3, 3015-3 ####[facility] LABIA [id number] [place] [address] [place] Protein [Mass/Vol] 7.0 g/dL Normal 6.3-8.0 [facility] Comment on above: Order Comment: Robyni men Type: BLOOD SPECIMENOrdering Facility: [facility] Address: [address] [place] [address] Performed By: #### 2 4323-8, 81540-5, 3016-3 ####[facility] LABCLIA [id number] [address] [address] [place] Sodium [Moles/Vol] 139 mmol/L Normal 136-144 [facility] Comment on above: Order Comment: Speci men Type: BLOOD SPECIMENOrdering Facility: [facility] Address: [address] [place] [address] Performed By: #### 2 4323-8, 32151-0, 3016-3 ####[facility] LABIA [id number] [address] [address] [place] Urea nitrogen [Mass/Vol] 13 mg/dL Normal 9-24 [facility] Comment on above: Order Comment: Speci men Type: BLOOD SPECIMENOrdering Facility: [facility] Address: [address] [place] [address] Performed By: #### 2 4323-8, 17316-4, 3015-3 ####[facility] LABIA [id number] [place] [address] [place] HbA1c (Bld)on 03-08-2024 Average glucose Estimated from glycated hemoglobin (Bld) [Mass/Vol] 140 mg/dL Normal [facility] Comment on above: Order Comment: Speci men Type: BLOOD SPECIMENOrdering Facility: [facility] Address: [address] [place] [address] Result Comment: eAG: (Estimated average glucose) is a calculated value from HgbA1c and is life assurance representative of the average blood glucose level in the last 2-3 month period. Performed By: #### 5 5454-3 ####[facility] [id number] [place] [address] [place] HbA1c (Bld) [Mass fraction] 6.5 % High 4.3-5.6 [facility] Comment on above: Order Comment: Speci men Type: BLOOD SPECIMENOrdering Facility: [facility] Address: [address] [place] [address] Result Comment: Amer ican Diabetes Association guidelines indicate that patients with HgbA1c in the range 5.7-6.4% are at increased risk for development of diabetes, and intervention by lifestyle modification may be beneficial. HgbA1c greater or equal to 6.5% is considered diagnostic of diabetes. Performed By: #### 5 5454-3 ####[facility] LABCLIA [id number] [place] [address] [place] Lipid 1996 panelon 4 Cholesterol [Mass/Vol] 205 mg/dL High <200 [facility] Comment on above: Order Comment: Fidel landaverde Type: BLOOD SPECIMENOrdering Facility: [facility] Address: [address] [place] [address] Result Comment: <200 mg/dL, Desirable 200-239 mg/dL, Borderline high >239 mg/dL, High Performed By: #### 2 4323-8, 83844-1, 3016-3 ####[facility] LABCLIA [id number] [place] [address] [place] Cholesterol in HDL [Mass/Vol] 42 mg/dL Normal >39 [facility] Comment on above: Order Comment: Fidel landaverde Type: BLOOD SPECIMENOrdering Facility: [facility] Address: [address] [place] [address] Result Comment: 40-5 9 mg/dL, Acceptable >59 mg/dL, High: Negative risk factor for coronary heart disease <40 mg/dL, Low: Positive risk factor for coronary heart disease Performed By: #### 2 4323-8, 34616-6, 3016-3 ####[facility] LABCLIA [id number] [place] [address] [place] Cholesterol in LDL [Mass/Vol] 131 mg/dL High <100 [facility] Comment on above: Order Comment: Fidel landaverde Type: BLOOD SPECIMENOrdering Facility: [facility] Address: [address] [place] [address] Result Comment: <100 mg/dL, Optimal 100-129 mg/dL, Near optimal/above optimal 130-159 mg/dL, Borderline high 160-189 mg/dL, High >189 mg/dL, Very high Secondary prevention optimal LDL Cholesterol levels are recommended to be < 70 mg/dL Performed By: #### 2 4323-8, 21935-8, 3016-3 ####[facility] LABCLIA [id number] [address] [address] [place] Cholesterol in LDL/Cholesterol in HDL [Mass ratio] 3.12 {ratio} High <2.54 [facility] Comment on above: Order Comment: Speci men Type: BLOOD SPECIMENOrdering Facility: [facility] Address: [address] [place] [address] Result Comment: Refe rence: 1. National Cholesterol Education Program ATP III Guideline At-A-Glance Quick Desk Reference: National Heart, Lung, and Blood Rush Center. National Institutes of Health. 2001: NIH Publication No. 01-3305. 2. An International Atherosclerosis Society position paper: global recommendations for the management of dyslipidemia: executive summary, Atherosclerosis. 2014: 232(2):410-413. Performed By: #### 2 4323-8, 40796-4, 3015-3 ####[facility] LABIA [id number] [place] [address] [place] Cholesterol in VLDL [Mass/Vol] 32 mg/dL High <30 [facility] Comment on above: Order Comment: Speci men Type: BLOOD SPECIMENOrdering Facility: [facility] Address: [address] [place] [address] Performed By: #### 2 4323-8, 34911-4, 3015-3 ####[facility] LABIA [id number] [address] [address] [place] Cholesterol non HDL [Mass/Vol] 163 mg/dL High <130 [facility] Comment on above: Order Comment: Speci men Type: BLOOD SPECIMENOrdering Facility: [facility] Address: [address] [place] [address] Result Comment: <130 mg/dL, Optimal 130-159 mg/dL, Near optimal/above optimal 160-189 mg/dL, Borderline high 190-219 mg/dL, High >219 mg/dL, Very high Secondary prevention optimal non HDL Cholesterol levels are recommended to be <100 mg/dL Performed By: #### 2 4323-8, 12320-0, 3015-3 ####[facility] LABCLIA [id number] [place] [address] [place] Cholesterol.total /Cholesterol in HDL [Mass ratio] 4.88 {ratio} Normal <5.10 [facility] Comment on above: Order Comment: Speci men Type: BLOOD SPECIMENOrdering Facility: [facility] Address: [address] [place] [address] Performed By: #### 2 4323-8, 24102-4, 3015-10 ####[facility] LABCLIA [id number] [place] [address] [place] FASTING TIME 12 hrs Normal [facility] Comment on above: Order Comment: Speci men Type: BLOOD SPECIMENOrdering Facility: [facility] Address: [address] [place] [address] Performed By: #### 2 4323-8, 62947-0, 3015-10 ####[facility] LABCLIA [id number] [place] [address] [place] Triglyceride [Mass/Vol] 158 mg/dL High <150 [facility] Comment on above: Order Comment: Speci men Type: BLOOD SPECIMENOrdering Facility: [facility] Address: [address] [place] [address] Result Comment: <150 mg/dL, Normal 150-199 mg/dL, Borderline high 200-499 mg/dL, High >499 mg/dL, Very high Performed By: #### 2 4323-8, 12246-8, 3015-10 ####[facility] LABCLIA [id number] [place] [id number] [place] TSH SerPl-aCncon 03-08-2024 TSH Qn 2.520 m[IU]/L Normal 0.270-4.200 [facility] Comment on above: Order Comment: Speci men Type: BLOOD SPECIMENOrdering Facility: [facility] Address: [address] [facility] [facility] [place] [address] Performed By: #### 2 4323-8, 21714-1, 3016-3 ####[facility] LABCLIA [id number] [address]a [id number] Vinny 10-02-2023 ALANISN Telephone (UROLMN) WALDO ZEE ([id number]) 1960 [facility] Date Time Provider Department 10/02/23 EVERETTE [...] Everette Cross DNP, ALANIS Department of Urology [facility] Johnny Funes RN 10/02/2023 2:15 PM Signed Called patient and gave patient message below. Patient verbalized understanding. Allergies As of Date: 10/02/2023 Noted Allergy Reaction ATORVASTATIN 03/15/2023 8 - GI Upset Comments: Cause acid reflux DUST MITES 11/11/2009 ROSUVASTATIN 03/15/2023 8 - GI Upset Comments: Cause acid reflux Date Reviewed: 09/28/2023 Reviewed by: Virginie Benavidez RT(R) - Fully Assessed Reason for Visit: Results [95] Appointment [186] Primary Visit Diagnosis:Kidney stones [N20.0] Other Visit Diagnosis:Abnormal urinalysis [R82.90] Order(s):URINALYSIS WITH MICROSCOPIC, REFLEX CULTURE [SQUACII] Order #: [id number] FUTURE Prescriptions as of 10/02/2023 - tamsulosin [...] [K43.2] 06/26/2018 06/02/2020 Coronary artery disease involving tan[place]ross marcano*06/02/2020 Fatty liver [K76.0] 02/08/2021 Morbid obesity (HCC) [E66.01] 02/08/2021 Burning sensation of feet [R20.8] 08/03/2023 History of colonic polyps [Z86.010] 08/31/2023 Encounter Status:Closed by [facility] ([id number]) 1960 [facility] Date Time Provider Department 10/02/23 EVERETTE CROSS UROCARO During your visit today, we recorded the following information about you: Oziel Dunlap 10/02/2023 12:02 PM Signed Patient called today regarding his recent CT scan Would like to discuss results, and has additional questions Please contact the patient, he can be reached at [phone] Johnny Funes, BUSHRA 10/02/2023 2:16 PM Signed Called patient back [...] [K43.2] 06/26/2018 06/02/2020 Coronary artery disease involving tanacross marcano*06/02/2020 Fatty liver [K76.0] 02/08/2021 Morbid obesity (HCC) [E66.01] 02/08/2021 Burning sensation of feet [R20.8] 08/03/2023 History of colonic polyps [Z86.010] 08/31/2023 Encounter Status:Closed by JOHNNY FUNES on 10/02/23 Normal [facility] CT Kidney WO and W contrast Karla 10-01-2023 [facility] [address] UROGRAM WO/W IVCONon - CT UROGRAM WO/W IVCON * * *Final Report* * * DATE OF EXAM: Oct 01 2023 1:51PM [facility] 0560 - CT UROGRAM WO/W IVCON / [...] Tissues: No significant finding. Lower thorax: Unremarkable. Fusion Juncture Grinder (topogram) images: Unremarkable. IMPRESSION: 6 mm x 5 mm terminal left ureteral calculus. Small remaining peripelvic bilateral intrarenal calculi. Cholelithiasis Law Firm Consultant: [facility] CORBINTevin Transcribe Date/Time: Oct 01 2023 2:27P Dictated by : CIRA SWIFT MD This examination was interpreted and the report reviewed and electronically signed by: CIRA SWIFT MD on Oct 01 2023 2:30PM EST [id number] Normal [facility] CREATININE BLDon 09-28-2023 Creatinine [Mass/Vol] 1.13 mg/dL Normal 0.73-1.22 [facility] Comment on above: Order Comment: Speci men Type: BLOOD SPECIMENOrdering Facility: [facility] Address: [address] [place] [address] Performed By: #### C RET1 ####[facility] [id number] [place] [address] [place] Creatinine and Glomerular filtration rate.predicted panel (S/P/Bld) 74 mL/min/1.73m??? Normal >=60 [facility] Comment on above: Order Comment: Speci men Type: BLOOD SPECIMENOrdering Facility: [facility] Address: [address] [place] [address] Result Comment: Jossie mated Glomerular Filtration Rate [...] actual GFR. Performed By: #### C RET1 ####[facility] [id number] [place] [address] [place] Urinalysis complete pnl [...] CULTURE, URINE: No growth (<1,000 CFU/ml) Abnormal [facility] Comment on above: Order Comment: Speci men Type: URINE SPECIMENOrdering Facility: [facility] Address: [address] [place] [id number] Performed By: #### 2 4356-8 ####[facility] LABCLIA [id number] [facility]ICEArthur [id number] [id number] [place] CNOVon 09-17-2023 CNOV Office Visit (UROLMD ) WALDO ZEE ([id number]) 1960 [facility] Date Time Provider Department 09/17/23 1:30 PM EVERETTE CROSS During your visit today, we recorded the following information about you: Pulse Respiration Blood pressure Weight 71/minute 16/minute 130/91 113.9 kg Height 1.803 m Everette Cross APRN.SOLE STAPLER WELT, DNP 09/28/2023 4:12 PM Addendum [facility] Urology - [facility] Referring provider: Bettye Powell MD New [...] Date ABDOMINAL SURGERY HX CARDIAC CATH 10/24/2018 [facility] with stent placement COLON SURGERY HX [...] ileostomy reversal PSA (EXTERNAL) 06/14/2015 normal (0.76) [facility] REMOVAL OF KIDNEY STONE 2022 Family [...] for Chest (more content not included)... Normal [facility] UA DIP, URINE (POC)on 2023 BILIRUBIN UA (POCT) Negative Negative [facility] CLARITY UA (POCT) Clear [facility] COLOR UA (POCT) Yellow [facility] GLUCOSE UA (POCT) Negative Negative mg/dL [facility] Hemoglobin Ql (U) Trace-intact Abnormal Negative [facility] KETONE UA (POCT) Negative Negative mg/dL [facility] LEUKOCYTES UA (POCT) Negative Negative [facility] NITRITE UA (POCT) Negative Negative [facility] PH UA (POCT) 6.0 4.5 - 8.0 [facility] Protein Ql (U) Negative Negative mg/dL [facility] SPECIFIC GRAVITY UA (POCT) 1.020 1.005 - 1.030 [facility] UROBILINOGEN UA (POCT) 0.2 E.U./dL Normal E.U./dL [facility] Bacteria Ur Culton 4 Bacteria identified Cx Nom (U) CULTURE, URINE: No growth (<1,000 CFU/ml) Normal [facility] Comment on above: Performed By: #### 6 30-4 ####[facility] LABCLIA [id number] [place] [address] [address] [place] CNOVon 09-11-2023 CNOV Office Visit (UCWSTR ) WALDO ZEE ([id number]) 1960 [address] [facility] Date Time Provider Department 09/11/23 1:45 PM TIFFANY TA [facility] During your visit today, we recorded the following information about you: Temperature Pulse Respiration Blood pressure 97.1 degrees 76/minute 16/minute 128/72 Weight 114.8 kg Tiffany Ta PA-C 09/11/2023 2:11 PM Signed This note was created using [a]list gamesriter. Subjective Waldo Zee is a 63 year [...] Date ABDOMINAL SURGERY HX CARDIAC CATH 10/24/2018 [facility] with stent placement COLON SURGERY HX [...] ileostomy reversal PSA (EXTERNAL) 06/14/2015 normal (0.76) [facility] REMOVAL OF KIDNEY STONE 2022 FAMILY [...] Resp 16 (more content not included)... Normal [facility] VITAMIN B12 BLOODon 05-05-20 Cobalamin (Vitamin B12) [Mass/Vol] 423 pg/mL 232 - 1,245 pg/mL [facility] ALBUMIN/CREAT RATIO RND URon 05-04-2023 Albumin DL <= 20 mg/L (U) [Mass/Vol] [facility] Albumin/Creatinin e (U) [Mass ratio] <30 mg/g [facility] Creatinine (U) [Mass/Vol] 160.0 mg/dL 20.0 - 300.0 mg/dL [facility] UA DIP, URINE (POC)on 2022 BILIRUBIN UA (POCT) Negative Negative [facility] CLARITY UA (POCT) Clear [facility] COLOR UA (POCT) Dark yellow [facility] GLUCOSE UA (POCT) Negative Negative mg/dL [facility] HEMOGLOBIN/BLOOD UA (POCT) Negative Negative [facility] KETONE UA (POCT) Negative Negative mg/dL [facility] LEUKOCYTES UA (POCT) Negative Negative [facility] NITRITE UA (POCT) Negative Negative [facility] PH UA (POCT) 6.5 4.5 - 8.0 [facility] Protein Ql (U) Negative Negative mg/dL [facility] SPECIFIC GRAVITY UA (POCT) 1.020 1.005 - 1.030 [facility] UROBILINOGEN UA (POCT) 0.2 E.U./dL Normal E.U./dL [facility] UA DIP, URINE (POC)on 2022 BILIRUBIN UA (POCT) Negative Negative [facility] CLARITY UA (POCT) Clear [facility] COLOR UA (POCT) Yellow [facility] GLUCOSE UA (POCT) Negative Negative mg/dL [facility] HEMOGLOBIN/BLOOD UA (POCT) Trace-intact Abnormal Negative [facility] KETONE UA (POCT) Negative Negative mg/dL [facility] LEUKOCYTES UA (POCT) Negative Negative [facility] NITRITE UA (POCT) Negative Negative [facility] PH UA (POCT) 6.0 4.5 - 8.0 [facility] Protein Ql (U) Negative Negative mg/dL [facility] SPECIFIC GRAVITY UA (POCT) 1.020 1.005 - 1.030 [facility] UROBILINOGEN UA (POCT) 0.2 E.U./dL Normal E.U./dL [facility] ANES POSTPROC EVALon 022 ANES POSTPROC EVAL HNO ID: [id number] Author: Ruiz Everett MD Service: Anesthesiology Author Type: Physician Type: Anesthesia Postprocedure Evaluation Filed: 07/12/2022 10:07 AM Note Text: POST ANESTHESIA EVALUATION NOTE : 1960 Procedure Summary Date: 07/11/22 Room / Location: CT OR / CT OR Anesthesia Start: 1254 Anesthesia Stop: 1327 [...] July 12, 2022 TIME: 10:07 AM CSN: [id number] [facility] 07-12-2022 CNPN Telephone (UROLAG) WALDO ZEE ([id number]) 1960 [facility] Date Time Provider Department 07/12/22 RAYMUNDO GALLEGOS During your visit today, we recorded the following information about you: Raymundo Gallegos MD 07/12/2022 12:45 PM Signed Patient needs Litholink and follow-up with Pedro Ponce in [place] Michelle GAGNON 07/12/2022 12:54 PM Signed [facility] [...] 11/11/2009 Date Reviewed: 07/11/2022 Reviewed by: Silvino Carballo RN - Fully Assessed Reason for Visit: Appointment [...] [K43.2] 06/26/2018 06/02/2020 Coronary artery disease involving tanacross marcano*06/02/2020 Fatty liver [K76.0] 02/08/2021 Morbid obesity (HCC) [E66.01] 02/08/2021 Encounter Status:Closed by RAYMUNDO GALLEGOS on 07/12/22 [facility] ANES PRE-OPon 07-11-2022 ANES PRE-OP HNO ID: [id number] Author: Ruiz Everett MD Service: Anesthesiology Author [...] Problems CARDIO (+) 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 ENDO (+) Type [...] July 11, 2022 TIME: 11:35 AM CSN: [id number] Normal [facility] CALCULI ANALYSISon 2 Calculus analysis [Interp] Normal [facility] Comment on above: Order Comment: Speci men Type: CALCULUS SPECIMEN [facility] Address: [address] [place], [place] [address] Result Comment: This test was developed and its performance characteristics determined by [facility]'s [facility] ([facility]). It has not been cleared or approved by the FDA. [facility] is regulated under CLIA as qualified to perform high-complexity testing. This test is used for clinical purposes. It should not be regarded as investigational or for research. Performed By: #### C SA #### [facility] CLIA [id number] [address] [place] [address] [place] [address] [place] CALCULUS COLOR BROWN Normal [facility] Comment on above: Order Comment: Speci men Type: CALCULUS SPECIMEN [facility] Address: [address] [place] [address] Performed By: #### C SA #### [facility] CLIA [id number] [address] [place] CALCULUS COMPOSITION 1 50% Calcium Oxalate Dihydrate Normal [facility] Comment on above: Order Comment: Speci men Type: CALCULUS SPECIMEN [facility] Address: [address] [place] [address] Performed By: #### C SA #### [facility] CLIA [id number] [address] [place] CALCULUS COMPOSITION 2 40% Calcium Oxalate Monohydrate Normal [facility] Comment on above: Order Comment: Speci men Type: CALCULUS SPECIMEN [facility] Address: [address] [place], [place] [address] Performed By: #### C SA #### [facility] CLIA [id number] [address] [place] CALCULUS COMPOSITION 3 10% Minor Components Normal [facility] Comment on above: Order Comment: Speci men Type: CALCULUS SPECIMEN [facility] Address: [address] [place] [address] Performed By: #### C SA #### [facility] CLIA [id number] [address] [place] [address] [place] CALCULUS SIZE AND WT Multiple pieces. 0.0683 GRAMS Normal [facility] Comment on above: Order Comment: Speci men Type: CALCULUS SPECIMEN [facility] Address: [address] [place] [address] Performed By: #### C SA #### [facility] CLIA [id number] [address] [place] CALCULUS TYPE CALCULI/CALCULUS Normal [facility] Comment on above: Order Comment: Speci men Type: CALCULUS SPECIMEN [facility] Address: [address] [place], [place] [address] Result Comment: [facility] Performed By: #### C SA #### [facility] CLIA [id number] [address] [facility] [id number] [place] [address] [place] HISTORY PHYSICALon HISTORY PHYSICAL HNO ID: [id number] Author: Raymundo Gallegos MD Service: Urology Author [...] HISTORY Procedure Laterality Date CARDIAC CATH 10/24/2018 [facility] with stent placement COLONOSCOPY FLX DX [...] ileostomy reversal PSA (EXTERNAL) 06/14/2015 normal (0.76) [facility] ALLERGIES: ALLERGIES Allergen Reactions Dust Mites [...] for jaundice, (more content not included)... Normal [facility] OPERATIVE NOon 07-11-2022 OPERATIVE NO HNO ID: [id number] Author: Raymundo Gallegos MD Service: Urology Author [...] fashion. Pressure points were padded. A 22 Turkmen sheath rigid cystoscope was used to inspect [...] operation. Adolph Laboy MD Urology PGY-2 Pager #[phone] 07/11/2022 12:51 PM Normal [facility] XR ABDOMEN 1V SUPINEon 07-11 XR ABDOMEN 1V SUPINE * * *Final Report* * * DATE OF EXAM: Jul 11 2022 1:22PM [facility] 5289 - XR ABDOMEN 1V SUPINE / [...] refer to procedure notes for full details. Law Firm Consultant: PSCB Transcribe Date/Time: Jul 13 2022 5:21P Dictated by : AMBAR ZURITA MD This examination was interpreted and the report reviewed and electronically signed by: AMBAR ZURITA MD on Jul 13 2022 5:24PM EST [id number] Normal [facility] WAL[facility] ([id number]) 1960 [facility] Date Time Provider Department 06/28/22 RAYMUNDO GALLEGOS During your visit today, we recorded the following information about you: Mercedes GAGNON 06/28/2022 8:53 AM Signed Pt is scheduled for CANDP, Rt ULL, possible Rt stent with Dr Gallegos at [facility] on 07/11/22 @ 1:55 (11:55 arrival). Urine culture ordered to be done 07/04. Pt given date, time, prep and arrival instructions over the phone. [facility] [employer] message sent also. Mercedes Raman COORD Allergies [...] [K43.2] 06/26/2018 06/02/2020 Coronary artery disease involving tanacross marcano*06/02/2020 Fatty liver [K76.0] 02/08/2021 Morbid obesity (HCC) [E66.01] 02/08/2021 Encounter Status:Closed by MERCEDES FITZPATRICK on 06/28/22 [facility] CNPN Telephone (UROLAG) WALDO ZEE ([id number]) 1960 [facility] Date Time Provider Department 06/24/22 AVIVA [...] Pt states he had consult yesterday at [facility] and has surgery planned for 08/18/22. I offered surgery sooner with Dr Gallegos at [facility] if he was interested. He states he will need to think about it and call me back if he wants to schedule here. Mercedes Raman [facility] Mercedes Raman [facility] 06/27/2022 3:59 PM Addendum Pt called back. He would like to proceed with surgery with Dr Gallegos. Surgery planned for 07/11/22- declined sooner date. Pt will finish the Keflex on 07/01/22. Do you want to recheck his urine before surgery? Mercedes GAGNON Allergies As of Date: 06/24/2022 Noted Allergy Reaction DUST MITES 11/11/2009 Date Reviewed: 06/23/2022 Reviewed by: Cait Park RN - Fully Assessed Reason for Visit: Mason Liner - Other [3602] Prescriptions as of 06/27/2022 [...] 08/06/2017 Ileost (more content not included)... Normal [facility] ED PROV NOTEon 06-24-2022 ED PROV NOTE HNO ID: [id number] Author: Demetris Hamilton DO Service: Emergency Medicine [...] concerning or worsening symptoms. Demetris Hamilton DO 06/24/22421 Normal [facility] ED PROV NOTE HNO ID: [id number] Author: Florian Strange DO Service: Emergency Medicine [...] Date ABDOMINAL SURGERY HX CARDIAC CATH 10/24/2018 [facility] with stent placement COLON SURGERY HX [...] ileostomy reversal PSA (EXTERNAL) 06/14/2015 normal (0.76) [facility] FAMILY HISTORY Adopted: Yes Problem Relation [...] Pulses: Kina (more content not included)... Normal [facility] CBC W Auto Differential pane l (Bld)on 06-23-2022 Basophils (Bld) [#/Vol] 0.10 10*3/uL Normal <0.11 [facility] Comment on above: Order Comment: Speci men Type: BLOOD SPECIMEN [facility] Address: [address] [place] [address] Performed By: #### 5 7021-8 #### [facility] CLIA [id number] [address] Basophils/100 WBC (Bld) 0.8 % Normal [facility] Comment on above: Order Comment: Speci men Type: BLOOD SPECIMEN [facility] Address: [address] [place] [address] Performed By: #### 5 7021-8 #### [facility] CLIA [id number] [address] Differential cell count method Nom (Bld) Auto Normal [facility] Comment on above: Order Comment: Speci men Type: BLOOD SPECIMEN [facility] Address: [address] [place] [address] Performed By: #### 5 7021-8 #### [facility] CLIA [id number] [address] Eosinophils (Bld) [#/Vol] 0.22 10*3/uL Normal <0.46 [facility] Comment on above: Order Comment: Speci men Type: BLOOD SPECIMEN [facility] Address: [address] [place] [address] Performed By: #### 5 7021-8 #### [facility] CLIA [id number] [address] [place] [address] Eosinophils/100 WBC (Bld) 1.7 % Normal [facility] Comment on above: Order Comment: Speci men Type: BLOOD SPECIMEN [facility] Address: [address] [place] [address] Performed By: #### 5 7021-8 #### [facility] CLIA [id number] [address] Erythrocyte distribution width (RBC) [Ratio] 15.0 % Normal 11.5-15.0 [facility] Comment on above: Order Comment: Speci men Type: BLOOD SPECIMEN [facility] Address: [address] [place] [address] Performed By: #### 5 7021-8 #### [facility] CLIA [id number] [address] Hematocrit (Bld) [Volume fraction] 40.7 % Normal 39.0-51.0 [facility] Comment on above: Order Comment: Speci men Type: BLOOD SPECIMEN [facility] Address: [address] [place] [address] Performed By: #### 5 7021-8 #### [facility] CLIA [id number] [address] [place] Hemoglobin (Bld) [Mass/Vol] 13.2 g/dL Normal 13.0-17.0 [facility] Comment on above: Order Comment: Speci men Type: BLOOD SPECIMEN [facility] Address: [address] [place] [address] Performed By: #### 5 7021-8 #### [facility] CLIA [id number] [address] OF [facility] Immature granulocytes (Bld) [#/Vol] 0.04 10*3/uL Normal <0.10 [facility] Comment on above: Order Comment: Speci men Type: BLOOD SPECIMEN [facility] Address: [address] [address] Performed By: #### 5 7021-8 #### [facility] CLIA [id number] [address] Immature granulocytes/100 WBC (Bld) 0.3 % Normal [facility] Comment on above: Order Comment: Speci men Type: BLOOD SPECIMEN [facility] Address: [address] [address] Performed By: #### 5 7021-8 #### [facility] CLIA [id number] [address] OF [facility] Lymphocytes (Bld) [#/Vol] 2.77 10*3/uL Normal 1.00-4.00 [facility] Comment on above: Order Comment: Speci men Type: BLOOD SPECIMEN [facility] Address: [address] [place] [address] Performed By: #### 5 7021-8 #### [facility] CLIA [id number] [address] Lymphocytes/100 WBC (Bld) 21.1 % Normal [facility] Comment on above: Order Comment: Speci men Type: BLOOD SPECIMEN [facility] Address: [address] [place] [address] Performed By: #### 5 7021-8 #### [facility] CLIA [id number] [address] MCH (RBC) [Entitic mass] 25.8 pg Low 26.0-34.0 [facility] Comment on above: Order Comment: Speci men Type: BLOOD SPECIMEN [facility] Address: [address] [place] [address] Performed By: #### 5 7021-8 #### [facility] CLIA [id number] [address] MCHC (RBC) [Mass/Vol] 32.4 g/dL Normal 30.5-36.0 [facility] Comment on above: Order Comment: Speci men Type: BLOOD SPECIMEN [facility] Address: [address] [place] [address] Performed By: #### 5 7021-8 #### [facility] CLIA [id number] [address] MCV (RBC) [Entitic vol] 79.6 fL Low 80.0-100.0 [facility] Comment on above: Order Comment: Speci men Type: BLOOD SPECIMEN [facility] Address: [address] [address] Performed By: #### 5 7021-8 #### [facility] CLIA [id number] [address] [place] Monocytes (Bld) [#/Vol] 0.80 10*3/uL Normal <0.87 [facility] Comment on above: Order Comment: Speci men Type: BLOOD SPECIMEN [facility] Address: [address] [address] Performed By: #### 5 7021-8 #### [facility] CLIA [id number] [address] Monocytes/100 WBC (Bld) 6.1 % Normal [facility] Comment on above: Order Comment: Speci men Type: BLOOD SPECIMEN [facility] Address: [address] [address] Performed By: #### 5 7021-8 #### [facility] CLIA [id number] [address] [place] Neutrophils (Bld) [#/Vol] 9.19 10*3/uL High 1.45-7.50 [facility] Comment on above: Order Comment: Speci men Type: BLOOD SPECIMEN [facility] Address: [address] [address] Performed By: #### 5 7021-8 #### [facility] CLIA [id number] [address] [place] Neutrophils/100 WBC (Bld) 70.0 % Normal [facility] Comment on above: Order Comment: Speci men Type: BLOOD SPECIMEN [facility] Address: [address] [place] [address] Performed By: #### 5 7021-8 #### [facility] CLIA [id number] [address] [place] Nucleated RBC (Bld) [#/Vol] 10*3/uL Normal <0.01 [facility] Comment on above: Order Comment: Speci men Type: BLOOD SPECIMEN [facility] Address: [address] [address] Performed By: #### 5 7021-8 #### [facility] CLIA [id number] [address] Nucleated RBC/100 WBC (Bld) [Ratio] 0.0 /100 WBC Normal [facility] Comment on above: Order Comment: Speci men Type: BLOOD SPECIMEN [facility] Address: [address] [address] Performed By: #### 5 7021-8 #### [facility] CLIA [id number] [address] [place] Platelet mean volume (Bld) [Entitic vol] 10.1 fL Normal 9.0-12.7 [facility] Comment on above: Order Comment: Speci men Type: BLOOD SPECIMEN [facility] Address: [address] [address] Performed By: #### 5 7021-8 #### [facility] CLIA [id number] [address] [place] Platelets (Bld) [#/Vol] 311 10*3/uL Normal 150-400 [facility] Comment on above: Order Comment: Speci men Type: BLOOD SPECIMEN [facility] Address: [address] [address] Performed By: #### 5 7021-8 #### [facility] CLIA [id number] [address] [place] RBC (Bld) [#/Vol] 5.11 10*6/uL Normal 4.20-6.00 [facility] Comment on above: Order Comment: Speci men Type: BLOOD SPECIMEN [facility] Address: [address] [place] [address] Performed By: #### 5 7021-8 #### [facility] CLIA [id number] [address] [place] WBC (Bld) [#/Vol] 13.12 10*3/uL High 3.70-11.00 [facility] Comment on above: Order Comment: Speci men Type: BLOOD SPECIMEN [facility] Address: [address] [place] [address] Performed By: #### 5 7021-8 #### [facility] CLIA [id number] [address] [place] CT FLANK WO IVCONon 06-23-20 [facility] metabolic 2000 panelon 06-23-2022 Albumin [Mass/Vol] 4.3 g/dL Normal 3.9-4.9 [facility] Comment on above: Order Comment: Speci men Type: BLOOD SPECIMENOrdering Facility: [facility] Address: [address] [place] [address] Performed By: #### 2 4323-8 ####[facility] [id number] [address] STATES OF [facility] ALP [Catalytic activity/Vol] 83 U/L Normal 38-113 [facility] Comment on above: Order Comment: Speci men Type: BLOOD SPECIMENOrdering Facility: [facility] Address: [address] [place] [address] Performed By: #### 2 4323-8 ####[facility]ORY[facility]IA [id number] [address] STATES [facility] ALT With P-5'-P [Catalytic activity/Vol] 34 U/L Normal 10-54 [facility] Comment on above: Order Comment: Speci men Type: BLOOD SPECIMENOrdering Facility: [facility] Address: [address] [place] [address] Performed By: #### 2 4323-8 ####[facility]ORY[facility]IA [id number] [address] Anion gap [Moles/Vol] 10 mmol/L Normal 9-18 [facility] Comment on above: Order Comment: Speci men Type: BLOOD SPECIMENOrdering Facility: [facility] Address: [address] [address] Performed By: #### 2 4323-8 ####[facility] [id number] [address] [place] AST With P-5'-P [Catalytic activity/Vol] 35 U/L Normal 14-40 [facility] Comment on above: Order Comment: Speci men Type: BLOOD SPECIMENOrdering Facility: [facility] Address: [address] [place] [address] Performed By: #### 2 4323-8 ####[facility] [id number] [place] [address] [place] Bilirubin [Mass/Vol] 0.3 mg/dL Normal 0.2-1.3 [facility] Comment on above: Order Comment: Speci men Type: BLOOD SPECIMENOrdering Facility: [facility] Address: [address] [place] [address] Performed By: #### 2 4323-8 ####[facility] [facility] LABORATORYCLIA [id number] [place] [address] [place] Calcium [Mass/Vol] 9.8 mg/dL Normal 8.5-10.2 [facility] Comment on above: Order Comment: Speci men Type: BLOOD SPECIMENOrdering Facility: [facility] Address: [address] [place] [address] Performed By: #### 2 4323-8 ####[facility] LABORATORYCLIA [id number] [place] [address] [place] Chloride [Moles/Vol] 103 mmol/L Normal 97-105 [facility] Comment on above: Order Comment: Speci men Type: BLOOD SPECIMENOrdering Facility: [facility] Address: [address] [place] [address] Performed By: #### 2 4323-8 ####[facility]ATORYCLIA [id number] [place] [address] [place] CO2 [Moles/Vol] 26 mmol/L Normal 22-30 [facility] Comment on above: Order Comment: Speci saima Type: BLOOD SPECIMENOrdering Facility: [facility] Address: [address] [address] Performed By: #### 2 4323-8 ####[facility] [id number] [address] Creatinine [Mass/Vol] 0.87 mg/dL Normal 0.73-1.22 [facility] Comment on above: Order Comment: Speci men Type: BLOOD SPECIMENOrdering Facility: [facility] Address: [address] [address] Performed By: #### 2 4323-8 ####[id number] [address] ESTIMATED GLOMERULAR FILTRATION RATE 99 mL/min/1.73m??? Normal >=60 [facility] Comment on above: Order Comment: Speci men Type: BLOOD SPECIMENOrdering Facility: [facility] Address: [address] [place] [address] Result Comment: Jossie mated Glomerular Filtration Rate [...] actual GFR. Performed By: #### 2 4323-8 ####[facility] LABORATORYCLIA [id number] [address] [place] Glucose [Mass/Vol] 160 mg/dL High 74-99 [facility] Comment on above: Order Comment: Fidel landaverde Type: BLOOD SPECIMENOrdering Facility: [facility] Address: [address] [place] [address] Result Comment: The [place] [employer] Association (ADA) provides guidance for cutoff [...] Standards of Medical Care in Diabetes 2016, [place] [employer]. Diabetes Care. 2016.39(Suppl 1). Performed By: #### 2 4323-8 ####[facility] LABORATORYCLIA [id number] [address] [place] Potassium [Moles/Vol] 4.0 mmol/L Normal 3.7-5.1 [facility] Comment on above: Order Comment: Robyni men Type: BLOOD SPECIMENOrdering Facility: [facility] Address: [address] [place] [address] Performed By: #### 2 4323-8 ####[facility] LABORATORYCLIA [id number] [place] [address] [place] Protein [Mass/Vol] 7.1 g/dL Normal 6.3-8.0 [facility] Comment on above: Order Comment: Robyni saima Type: BLOOD SPECIMENOrdering Facility: [facility] Address: [address] [place] [address] Performed By: #### 2 4323-8 ####[facility] LABORATORYCLIA [id number] [place] [address] [place] Sodium [Moles/Vol] 139 mmol/L Normal 136-144 [facility] Comment on above: Order Comment: Speci men Type: BLOOD SPECIMENOrdering Facility: [facility] Address: [address] [address] Performed By: #### 2 4323-8 ####[facility] LABORATORYCLIA [id number] [place] [address] [place] Urea nitrogen [Mass/Vol] 11 mg/dL Normal 9-24 [facility] Comment on above: Order Comment: Speci men Type: BLOOD SPECIMENOrdering Facility: [facility] Address: [address] [address] Performed By: #### 2 4323-8 ####[facility] LABORATORYCLIA [id number] [address] ED Triage Noteon 06-23-2022 ED Triage Note HNO ID: [id number] Author: Everette Weiss PA-C Service: Emergency Medicine Author Type: Physician Supervisor [place] Type: ED Triage Notes Filed: 06/23/2022 7:30 [...] CMP Urinalysis SIGNATURE: Everette Weiss PA-C Normal [facility] Urinalysis complete panel (U )on 06-23-2022 Bilirubin Ql (U) Negative Normal Negative [facility] Comment on above: Order Comment: Speci men Type: URINE SPECIMEN [facility] Address: [address] [place] [address] Performed By: #### 2 4356-8 #### [facility] CLIA [id number] [address] Clarity (Unsp spec) Clear Normal Clear [facility] Comment on above: Order Comment: Speci men Type: URINE SPECIMEN [facility] Address: [address] [address] Performed By: #### 2 4356-8 #### [facility] CLIA [id number] [address] Color (U) Yellow Normal yellow [facility] Comment on above: Order Comment: Speci men Type: URINE SPECIMEN [facility] Address: [address] [address] Performed By: #### 2 4356-8 #### [facility] CLIA [id number] [address] Glucose Test strip (U) [Mass/Vol] Negative Normal Negative [facility] Comment on above: Order Comment: Speci men Type: URINE SPECIMEN [facility] Address: [address] [address] Performed By: #### 2 4356-8 #### [facility] CLIA [id number] [address] Hemoglobin Ql (U) 2+ Abnormal Negative [facility] Comment on above: Order Comment: Speci men Type: URINE SPECIMEN [facility] Address: [address] [place] [address] Performed By: #### 2 4356-8 #### [facility] CLIA [id number] [address] Ketones Ql (U) Negative Normal Negative [facility] Comment on above: Order Comment: Speci men Type: URINE SPECIMEN [facility] Address: [address] [address] Performed By: #### 2 4356-8 #### [facility] CLIA [id number] [address] Leukocyte esterase Test strip Ql (U) Negative Normal Negative [facility] Comment on above: Order Comment: Speci men Type: URINE SPECIMEN [facility] Address: [address] [address] Performed By: #### 2 4356-8 #### [facility] CLIA [id number] [address] [place] Nitrite Ql (U) Negative Normal Negative [facility] Comment on above: Order Comment: Speci men Type: URINE SPECIMEN [facility] Address: [address] [address] Performed By: #### 2 4356-8 #### [facility] CLIA [id number] [address] pH (U) 5.5 [pH] Normal 5.0-8.0 [facility] Comment on above: Order Comment: Speci men Type: URINE SPECIMEN [facility] Address: [address] [place] [address] Performed By: #### 2 4356-8 #### [facility] CLIA [id number] [address] Protein (U) [Mass/Vol] Trace Abnormal Negative [facility] Comment on above: Order Comment: Speci men Type: URINE SPECIMEN [facility] Address: [address] [place] [address] Performed By: #### 2 4356-8 #### [facility] CLIA [id number] [address] RBC LM.HPF (Urine sed) [#/Area] /[HPF] Abnormal 0-3 /HPF [facility] Comment on above: Order Comment: Speci men Type: URINE SPECIMEN [facility] Address: [address] [place] [address] Performed By: #### 2 4356-8 #### [facility] CLIA [id number] [address] Specific gravity (U) [Rel density] 1.020 Normal 1.005-1.030 [facility] Comment on above: Order Comment: Speci men Type: URINE SPECIMEN [facility] Address: [address] [address] Performed By: #### 2 4356-8 #### [facility] CLIA [id number] [address] Urobilinogen Ql (U) Normal Normal Negative [facility] Comment on above: Order Comment: Speci men Type: URINE SPECIMEN [facility] Address: [address] [place] [address] Performed By: #### 2 4356-8 #### [facility] CLIA [id number] [address] [place] WBC LM.HPF (Urine sed) [#/Area] 0-5 /HPF Normal 0-5 /HPF [facility] Comment on above: Order Comment: Speci men Type: URINE SPECIMEN [facility] Address: [address] [place] [id number] Performed By: #### 2 4356-8 #### [facility] CLIA [id number] [address] [id number] [place] UA DIP, URINE (POC)on 2021 BILIRUBIN UA (POCT) Negative Negative [facility] CLARITY UA (POCT) Slightly Cloudy Cl [facility] COLOR UA (POCT) Paige [facility] GLUCOSE UA (POCT) Negative Negative mg/dL [facility] HEMOGLOBIN/BLOOD UA (POCT) Large Abnormal Negative [facility] KETONE UA (POCT) Negative Negative mg/dL [facility] LEUKOCYTES UA (POCT) Negative Negative [facility] NITRITE UA (POCT) Negative Negative [facility] PH UA (POCT) 6.5 4.5 - 8.0 [facility] Protein Ql (U) 30 mg/dL Abnormal Negative mg/dL [facility] SPECIFIC GRAVITY UA (POCT) 1.020 1.005 - 1.030 [facility] UROBILINOGEN UA (POCT) 0.2 E.U./dL Normal E.U./dL [facility] XR CHEST 2V FRONTAL/LATon [facility] XR Chest PA and Lateralon IMPRESSION: No acute radiographic abnormality. 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 Law Firm Consultant: [place] Transcribe Date/Time: Jan 20 2022 9:12A Dictated by : CRISTY ABRAMS MD This examination was interpreted and the report reviewed and electronically signed by: CRISTY ABRAMS MD on Jan 20 2022 9:15AM EST [facility] Radiology Study observation (narrative) [facility] XR Chest PA and LateralOrder ed By: Cc Provider on 01-20-2022 [facility] Vital Signs Date Time Vital Sign Value Performing Clinician Mesha pritchard 09-08-2024 08:26-0500 Body mass index (BMI) [Ratio] 37.8 kg/m2 Bettye Powell MD Work Phone: [facility] 09-08-2024 08:26-0500 Body weight 122.92 kg Bettye Powell MD Work Phone: [facility] 09-08-2024 08:26-0500 Diastolic blood pressure 82 mm[Hg] Bettye Powell MD Work Phone: [facility] 09-08-2024 08:26-0500 Heart rate 66 /min Bettye Powell MD Work Phone: [facility] 09-08-2024 08:26-0500 Respiratory rate 16 /min Bettye Powell MD Work Phone: [facility] 09-08-2024 08:26-0500 Systolic blood pressure 128 mm[Hg] Bettye Powell MD Work Phone: [facility] 03-19-2024 09:52-0400 Body mass index (BMI) [Ratio] 34.87 kg/m2 Lizeth Bradford APRN.[employer] WELT Work Phone: [facility] 03-19-2024 09:52-0400 Body temperature 97 [degF] Lizeth Bradford APRN.[employer] Work Phone: [facility] 03-19-2024 09:52-0400 Body weight 113.4 kg Lizeth Bradford APRN.[employer] Work Phone: [facility] 03-19-2024 09:52-0400 Diastolic blood pressure 84 mm[Hg] Lzieth Bradford APRN.[employer]ELT Work Phone: [facility] 03-19-2024 09:52-0400 Heart rate 67 /min Lizeth Bradford APRN.[employer] Work Phone: [facility] 03-19-2024 09:52-0400 Respiratory rate 16 /min Lizeth Bradford APRN.[employer]ELT Work Phone: [facility] 03-19-2024 09:52-0400 SaO2% (BldA) [Mass fraction] 98 % Lizeth Bradford APRN.[employer]T Work Phone: [facility] 03-19-2024 09:52-0400 Systolic blood pressure 130 mm[Hg] Lizeth Bradford APRN.[employer]T Work Phone: [facility] 03-10-2024 09:13-0400 Body height 180.3 cm Bettye Powell MD Work Phone: [facility] 03-10-2024 09:13-0400 Body mass index (BMI) [Ratio] 35.01 kg/m2 Bettye Powell MD Work Phone: [facility] 03-10-2024 09:13-0400 Body weight 113.85 kg Bettye Powell MD Work Phone: [facility] 03-10-2024 09:13-0400 Diastolic blood pressure 80 mm[Hg] Bettye Powell MD Work Phone: [facility] 03-10-2024 09:13-0400 Heart rate 65 /min Bettye Powell MD Work Phone: [facility] 03-10-2024 09:13-0400 Systolic blood pressure 118 mm[Hg] Bettye Powell MD Work Phone: [facility] 09-17-2023 13:23-0500 Body height 180.3 cm Everette Cross [employer] BRANDS INSPECTOR.ALANIS, DNP Work Phone: [facility] 09-17-2023 13:23-0500 Body weight 113.85 kg Everette Blacyrus [employer]AND[employer] INSPECTOR.[employer], DNP Work Phone: [facility] 09-17-2023 13:23-0500 Diastolic blood pressure 91 mm[Hg] Everette Blaz [employer]AND[employer] INSPECTOR.[employer] WELT, DNP Work Phone: [facility] 09-17-2023 13:23-0500 Heart rate 71 /min Everette Blaz [employer] INSPECTOR.[employer]ER WELT, DNP Work Phone: [facility] 09-17-2023 13:23-0500 Respiratory rate 16 /min Everette Blaz [employer] BRANDS INSPECTOR.[employer] WELT, DNP Work Phone: [facility] 09-17-2023 13:23-0500 Systolic blood pressure 130 mm[Hg] Everette Blaz [employer] BRANDS INSPECTOR.[employer] WELT, DNP Work Phone: [facility] 05-04-2023 13:32-0400 Body weight 117.03 kg Amada 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T Work Phone: [facility] 05-04-2023 13:32-0400 Diastolic blood pressure 78 mm[Hg] Amada 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ELT Work Phone: [facility] 05-04-2023 13:32-0400 Heart rate 80 /min Amada 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ELT Work Phone: [facility] 05-04-2023 13:32-0400 Respiratory rate 16 /min Amada 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 WELT Work Phone: [facility] 05-04-2023 13:32-0400 SaO2% (BldA) [Mass fraction] 97 % Amada 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 WELT Work Phone: [facility] 05-04-2023 13:32-0400 Systolic blood pressure 130 mm[Hg] Amada 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ELT Work Phone: [facility] 12-14-2022 09:33-0400 Diastolic blood pressure 88 mm[Hg] Bettye Powell MD Work Phone: [facility] 12-14-2022 09:33-0400 Systolic blood pressure 132 mm[Hg] Bettye Powell MD Work Phone: [facility] 12-14-2022 08:37-0400 Body temperature 97.2 [degF] Bettye Powell MD Work Phone: [facility] 12-14-2022 08:37-0400 Body weight 119.75 kg Bettye Powell MD Work Phone: [facility] 12-14-2022 08:37-0400 Heart rate 86 /min Bettye Powell MD Work Phone: [facility] 12-14-2022 08:37-0400 Respiratory rate 16 /min Bettye Powell MD Work Phone: [facility] 12-14-2022 08:37-0400 SaO2% (BldA) [Mass fraction] 98 % Bettye Powell MD Work Phone: [facility] 08-22-2022 08:01-0500 Body height 180.3 cm Pdero Ponce PA-C Work Phone: [facility] 08-22-2022 08:01-0500 Body temperature 97.3 [degF] Pedro Ponce PA-C Work Phone: [facility] 08-22-2022 08:01-0500 Body weight 121.11 kg Pedro Ponce PA-C Work Phone: [facility] 08-22-2022 08:01-0500 Diastolic blood pressure 90 mm[Hg] Pedro Ponce PA-C Work Phone: [facility] 08-22-2022 08:01-0500 Heart rate 82 /min Pedro Ponce PA-C Work Phone: [facility] 08-22-2022 08:01-0500 Respiratory rate 14 /min Pedro Ponce PA-C Work Phone: [facility] 08-22-2022 08:01-0500 SaO2% (BldA) [Mass fraction] 98 % Pedro Ponce PA-C Work Phone: [facility] 08-22-2022 08:01-0500 Systolic blood pressure 138 mm[Hg] Pedro Ponce PA-C Work Phone: [facility] 06-26-2022 16:15-0500 Body height 180.3 cm Chacho Donis MD Work Phone: [facility] 06-26-2022 16:15-0500 Body weight 118.3 kg Chacho Donis MD Work Phone: [facility] 06-26-2022 16:15-0500 Diastolic blood pressure 93 mm[Hg] Chacho Donis MD Work Phone: [facility] 06-26-2022 16:15-0500 Heart rate 71 /min Chacho Donis MD Work Phone: [facility] 06-26-2022 16:15-0500 Systolic blood pressure 140 mm[Hg] Chacho Donis MD Work Phone: [facility] 06-22-2022 08:59-0500 Diastolic blood pressure 96 mm[Hg] Bettye Powell MD Work Phone: [facility] 06-22-2022 08:59-0500 Systolic blood pressure 144 mm[Hg] Bettye Powell MD Work Phone: [facility] 06-22-2022 08:06-0500 Body temperature 97 [degF] Bettye Powell MD Work Phone: [facility] 06-22-2022 08:06-0500 Body weight 119.39 kg Bettye Powell MD Work Phone: [facility] 06-22-2022 08:06-0500 Heart rate 78 /min Bettye Powell MD Work Phone: [facility] 06-22-2022 08:06-0500 Respiratory rate 16 /min Bettye Powell MD Work Phone: [facility] 06-22-2022 08:06-0500 SaO2% (BldA) [Mass fraction] 99 % Bettye Powell MD Work Phone: [facility] 01-20-2022 08:10-0400 Body height 177.8 cm Bettye Powell MD Work Phone: [facility] 01-20-2022 08:10-0400 Body weight 117.03 kg Bettye Powell MD Work Phone: [facility] 01-20-2022 08:10-0400 Diastolic blood pressure 78 mm[Hg] Bettye Powell MD Work Phone: [facility] 01-20-2022 08:10-0400 Heart rate 82 /min Bettye Powell MD Work Phone: [facility] 01-20-2022 08:10-0400 Respiratory rate 16 /min Bettye Powell MD Work Phone: [facility] 01-20-2022 08:10-0400 SaO2% (BldA) [Mass fraction] 97 % Bettye Powell MD Work Phone: [facility] 01-20-2022 08:10-0400 Systolic blood pressure 128 mm[Hg] Bettye Powell MD Work Phone: [facility] 01-05-2022 13:46-0400 Body temperature 96.49 [degF] Don Salgado MD Work Phone: [facility] 01-05-2022 13:46-0400 Body weight 117.48 kg Don Salgado MD Work Phone: [facility] 01-05-2022 13:46-0400 Diastolic blood pressure 82 mm[Hg] Don Salgado MD Work Phone: [facility] 01-05-2022 13:46-0400 Heart rate 76 /min Don Salgado MD Work Phone: [facility] 01-05-2022 13:46-0400 Respiratory rate 16 /min Don Salgado MD Work Phone: [facility] 01-05-2022 13:46-0400 Systolic blood pressure 130 mm[Hg] Don Salgado MD Work Phone: [facility] Encounters Encounter Date Encounter Type Care Provider Facility Start: 01-14-2025 ambulatory Kinsey Yahir Facility:[facility] Start: 01-14-2025 ambulatory Gladys L White Facility :[facility] Start: 01-14-2025 Evaluation and management of inpatient Gladys L White Facility:[facility] Start: 09-26-2024 End: 09-29-2024 Refill Bettye Powell MD Work Phone: [facility] [place] Comment on above: Refill Request Start: 09-08-2024 End: 09-08-2024 ambulatory BETTYE POWELL Facility:[facility] Start: 09-08-2024 End: 09-08-2024 Office outpatient visit 25 minutes Bettye Powell MD Work Phone: [facility] [place] Comment on above: Type 2 diabetes emily itus without complication, without long- term current use of insulin (HCC) (Primary Dx); 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; BMI 39.0-39.9,adult; Vitamin B12 deficiency Start: 05-10-2024 End: 05-15-2024 Refill Emma Cardoza MD Work Phone: [facility] [place] Comment on above: Refill Request Start: 03-20-2024 Telephone encounter Lizeth hanna [employer] BR[employer] 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.[employer]ELT Work Phone: [facility] [place] Comment on above: Results Start: 03-19-2024 End: 03-19-2024 ambulatory LIZETH BRADFORD Facility:[facility] Start: 03-19-2024 End: 03-19-2024 Patient encounter procedure Lizeth Bradford [employer] 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.[employer]T Work Phone: [facility] [place] Comment on above: Pain of left calf (P rimary Dx); Edema of left lower extremity Start: 03-18-2024 End: 03-18-2024 ambulatory Sherine ROGEL [place] Start: 03-10-2024 End: 03-10-2024 Office outpatient visit 15 minutes Bettye Powell MD Work Phone: [facility] [place] Comment on above: Annual physical exam (Primary Dx); Encounter for immunization; Mixed hyperlipidemia; Morbid obesity (HCC); Type 2 diabetes mellitus without complication, without long-term current use of insulin (HCC); Rectal cancer (HCC); Seborrheic keratosis Start: 03-10-2024 End: 03-10-2024 ambulatory BETTYE POWELL Facility:[facility] Start: 03-10-2024 End: 03-10-2024 Patient encounter procedure Bettye Powell MD Work Phone: [facility] Start: 03-08-2024 End: 03-08-2024 ambulatory DON SALGADO Facility:[facility] Start: 02-26-2024 ambulatory Bettye Honeycutt Work Phone: Internal Medicine [place] [phone] Start: 11-26-2023 Refdain Honeycutt Work Phone: [facility] [place] Comment on above: Refill Request Start: 10-02-2023 Telephone encounter Everette bridges APRN.CNP, DNP Work Phone: Urology Comment on above: Results; Appointment Results Start: 10-01-2023 End: 10-01-2023 ambulatory EVERETTE CROSS Facility:[facility] Start: 10-01-2023 End: 10-01-2023 Subsequent hospital visit by physician Lavonne [facility] (I-Stat) Work Phone: [facility] Comment on above: Gross hematuria [R31 .0] Start: 09-28-2023 End: 09-28-2023 ambulatory EVERETTE CROSS Facility:[facility] Start: 09-17-2023 End: 09-17-2023 ambulatory EVERETTE CROSS Facility:[facility] Start: 09-17-2023 End: 09-17-2023 Office outpatient visit 15 minutes Everette Cross APRN.CNP, DNP Work Phone: Urology Comment on above: Gross hematuria (Mariela steven Dx); History of kidney stones Start: 09-11-2023 End: 09-11-2023 ambulatory BETTYE POWELL Facility:[facility] Start: 08-23-2023 End: 06-17-2024 Telephone encounter Regla [...] Amada Muro APRN.CNP Work Phone: [facility] [place] Comment on above: Type 2 diabetes emily itus without complication, without long- term current use of insulin (HCC) (Primary Dx); Burning sensation of feet; Primary hypertension; 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; Mixed hyperlipidemia Start: 01-30-2023 Telephone encounter Bettye farfan MD Work Phone: [facility] Comment on above: Diarrhea Start: 01-15-2023 Refill Bettye Honeycutt Work Phone: [facility] [place] Comment on above: Refill Request Start: 12-14-2022 End: 12-14-2022 Patient encounter procedure Bettye Powell MD Work Phone: [facility] [place] Comment on above: Acute bilateral low back pain without sciatica (Primary Dx); Type 2 diabetes mellitus without complication, without long-term current use of insulin (HCC); 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 Comment on above: Refill Request Start: 08-22-2022 End: 08-22-2022 Patient encounter procedure Pedro Ponce PA-C Work Phone: Urology Comment on above: Kidney stones (Prima ry Dx) Start: 07-13-2022 Patient encounter procedure [facility] Provider [facility] Department Start: 07-12-2022 Telephone encounter Raymundo Gallegos MD Work Phone: Urology Comment on above: Appointment Start: 07-11-2022 End: 07-11-2022 ambulatory RAYMUNDO GALLEGOS Facility:[facility] Start: 06-29-2022 Telephone encounter Leonor Rodriguez Urology Comment on above: Patient Update Start: 06-28-2022 Telephone encounter Raymundo Gallegos MD Work Phone: [facility] Comment on above: Surgery Scheduled Start: 06-27-2022 ambulatory Karin Nava RN Urology Start: 06-27-2022 Telephone encounter Aviva Cornelius MD Work Phone: [facility] Comment on above: Opened In Error Patient Update; Appo intment Start: 06-26-2022 End: 06-26-2022 Patient encounter procedure Chacho Donis MD Work Phone: Urology Comment on above: Kidney stones (Prima ry Dx); Ureteric stone Start: 06-26-2022 ambulatory Janelle Isbell RN NURSE VISUAL COMMUNICATIONS INSTRUCTOR Comment on above: Information Start: 06-24-2022 Telephone encounter Aviav Cornelius MD Work Phone: Urology Comment on above: Mason Liner - O ther Start: 06-24-2022 End: 06-24-2022 Emergency department patient visit BETTYE POWELL Facility:[facility] Start: 06-23-2022 End: 06-23-2022 Subsequent hospital visit by physician [facility] ([facility]) Work Phone: Cat Scan Comment on above: Gross hematuria [R31 .0] Start: 06-23-2022 Telephone encounter Amada Muro APRN.CNP Work Phone: Internal Medicine [place] Comment on above: Results Start: 06-22-2022 End: 06-22-2022 Patient encounter procedure Bettye Powell MD Work Phone: Internal Medicine [place] Comment on above: Gross hematuria (Mariela steven Dx); Mixed hyperlipidemia; 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; Calculus of other lower urinary tract location; Type 2 diabetes mellitus without complication, without long-term current use of insulin (HCC); Chronic bilateral back pain, unspecified back location Start: 06-21-2022 ambulatory Bettye Honeycutt Work Phone: [facility] [place] Comment on above: Possible kidney infe ction or kidney stone Start: 06-21-2022 Telephone encounter Bettye farfan MD Work Phone: Internal Medicine [place] Comment on above: Kidney Problem Start: 02-01-2022 Refill Bettye Honeycutt Work Phone: [facility] [place] Comment on above: Refill Request Start: 01-23-2022 Refill Bettye Honeycutt Work Phone: Family Medicine [place] Comment on above: Refill Request Start: 01-20-2022 End: 01-20-2022 Subsequent hospital visit by physician Chelsy [facility] [place] Work Phone: Radiology Comment on above: Cough [R05.9] Start: 01-20-2022 End: 01-20-2022 Patient encounter procedure Bettye Powell MD Work Phone: Internal Medicine [place] Comment on above: Cough (Primary Dx); Bronchitis Start: 01-16-2022 Telephone encounter Bettye farfan MD Work Phone: [facility] [place] Comment on above: Patient Update Start: 01-05-2022 End: 01-05-2022 Patient encounter procedure Don Salgado MD Work Phone: Internal Medicine [place] Comment on above: Otalgia of both ears (Primary Dx); Dysfunction of Eustachian tube, unspecified laterality; Type 2 diabetes mellitus without complication, without long-term current use of insulin ([facility]) Start: 12-30-2021 Refill Bettye Honeycutt Work Phone: Internal Medicine [place] Comment on above: Refill Request Start: 12-26-2021 Telephone encounter Bettye farfan MD Work Phone: [facility] [place] Comment on above: Patient Request Start: 12-24-2021 ambulatory Bettye Honeycutt Work Phone: Internal Medicine [place] Comment on above: Cough Start: 12-09-2021 ambulatory Bettye Honeycutt Work Phone: [facility] [place] Comment on above: tetnus shot Start: 11-24-2021 Telephone encounter Amada Muro APRN.SOLE STAPLER WELT Work Phone: Family Medicine [place] Comment on above: Results Start: 05-29-2017 End: 06-02-2020 Patient encounter procedure Bettye Powell MD Work Phone: [facility] Start: 07-07-2014 Patient encounter status Amada ayala APRN.SOLE STAPLER WELT Work Phone: [facility] Work Phone: Procedures Date Procedure Procedure Detail Performing Clinician Start: 10-01-2023 Ct abdomen & pelvis w/o contrst 1/> body re Everette Cross APRN.ALANIS, DNP Work Phone: Start: 09-17-2023 Urnls dip stick/tabl et rgnt auto w/o microscopy Everette Cross LIVESTOCK BRANDS INSPECTOR.ALANIS, ROSALIND Work Phone: Start: 08-31-2023 Colonoscopy Everette bridges LIVESTOCK BRANDS INSPECTOR.ALANIS, ROSALIND Work Phone: Start: 12-14-2022 Urnls dip stick/tabl [...] Adult depression scr eening assessment Amada Older LIVESTOCK BRANDS INSPECTOR.ALANIS Work Phone: Start: 07-02-2020 Colonoscopy Amada Older LIVESTOCK BRANDS INSPECTOR.ALANIS Work Phone: Plan of Treatment Date Care Activity Detail Author Start: 08-03-2033 Urine microalbumin profile DTaP,Tdap,Td Vaccine (6 - Td or Tdap) [facility] Start: 08-31-2026 Screening for malign ant neoplasm of colon [facility] Start: 09-16-2025 Glaucoma screening Dilated Retinal E xam [facility] Start: 09-08-2025 Annual PCP Team Saw Tailer zack Disease Visit Annual PCP Team Chronic Disease Visit [facility] Start: 09-08-2025 Diabetic foot examination Diabetic Foot Exam [facility] Start: 09-08-2025 RSV Vaccine (1 - Ris k 60-74 years 1-dose series) RSV Vaccine (1 - Risk 60-74 years 1-dose series) [facility] Comment on above: Postponed from 05/07 (Declined at this time) Start: 09-08-2025 Shingrix Vaccine (1 of 2) Shingrix Vaccine (1 of 2) [facility] Comment on above: Postponed from 05/07 (Declined at this time) Start: 03-19-2025 Annual PCP Team Saw Tailer zack Disease Visit Annual PCP Team Chronic Disease Visit [facility] Start: 03-10-2025 Annual PCP Team Saw Tailer zack Disease Visit Annual PCP Team Chronic Disease Visit [facility] Start: 03-10-2025 Pneumococcal vaccination Pneumococcal Vaccine (2 of 2 - PCV) [facility] Start: 03-10-2025 Pneumococcal Vaccine : 50+ (2 of 2 - PCV) Pneumococcal Vaccine: 50+ (2 of 2 - PCV) [facility] Start: 03-10-2025 End: 03-10-2025 Patient encounter procedure 03/10/2025 8:40 AM EDT Office Visit [facility] [place] [address] [place], [place] [id number] Bettye Powell MD [address] [place] [address] 6 month followup [facility] [place] Comment on above: 6 month followup Start: 03-08-2025 Hepatitis B surface antibody level LDL Cholesterol [facility] Start: 02-09-2025 Influenza vaccination Influenza Vacc ine (#1) [facility] Comment on above: Postponed from 04/13 (Declined at this time) Start: 12-24-[address] [facility] Start: 09-08-2024 End: 12-08-2024 Cobalamin (Vitamin B12) [Mass/volume] in Serum or Plasma VITAMIN B12 Lab Routine Vitamin B12 deficiency Expected: 09/08/2024, Expires: 12/08/2024 [facility] Comment on above: Expected: 09/08/2024 , Expires: 12/08/2024 Start: 09-08-2024 Hemoglobin A1c measurement HbA1C [facility] Start: 09-08-2024 End: 12-08-2024 Microalbumin/Creatinine [Mass Ratio] in Urine ALBUMIN/CREATININE RATIO, URINE Lab Routine Type 2 diabetes mellitus without complication, without long-term current use of insulin (HCC) Expected: 09/08/2024, Expires: 12/08/2024 [facility] Comment on above: Expected: 09/08/2024 , Expires: 12/08/2024 Start: 09-08-2024 End: 09-08-2024 Patient encounter procedure 09/08/2024 8:40 AM EST Office Visit [facility] [place] [address] [place] [address] Bettye Powell MD [address] [place] [place], [place] [address] 6 mo follow up [facility] [place] Comment on above: 6 mo follow up Start: 08-03-2024 Annual PCP Team Saw Tailer zack Disease Visit Annual PCP Team Chronic Disease Visit [facility] Start: 05-04-2024 3 comp foot exam completed Diabetic Foot Exam [facility] Start: 05-04-2024 Annual PCP Team Saw Tailer zack Disease Visit Annual PCP Team Chronic Disease Visit [facility] Start: 05-04-2024 Diabetic foot examination Diabetic Foot Exam [facility] Start: 05-04-2024 Hepatitis B screening Urine Al bumin:Creatinine Ratio [facility] Start: 05-04-2024 Hepatitis B Vaccine (1 of 3 - Risk 3-dose series) Hepatitis B Vaccine (1 of 3 - Risk 3-dose series) [facility] Comment on above: Postponed from 05/07 (Declined at this time) Start: 05-04-2024 HIV Screening HIV Screening [facility] Comment on above: Postponed from 05/07 (Declined at this time) Start: 05-04-2024 HIV screening HIV Screening [facility] Comment on above: Postponed from 05/07 (Declined at this time) Start: 05-04-2024 Prostate Cancer Screening Discussion Prostate Cancer Screening Discussion [facility] Comment on above: Postponed from 06/14 (Declined at this time) Start: 05-04-2024 Prostate specific antigen measurement Prostate Cancer Screening Discussion [facility] Comment on above: Postponed from 06/14 (Declined at this time) Start: 05-03-2024 Hepatitis B surface antibody level LDL Cholesterol [facility] Start: 04-13-2024 Influenza vaccination [facility] Start: 03-10-2024 End: 03-10-2024 Patient encounter procedure 03/10/2024 9:20 AM EDT Office Visit [facility] [place] [address] [place] [address] Bettye Powell MD [address] [place] [address] 6 mth f/u [facility] [place] Comment on above: 6 mth f/u Start: 02-26-2024 End: 05-27-2024 CBC panel - Blood by Automated count COMPLETE BLOOD COUNT Lab Routine Type 2 diabetes mellitus without complication, without long-term current use of insulin ([facility]) Expected: 02/26/2024, Expires: 05/27/2024 [facility] Comment on above: Expected: 02/26/2024 , Expires: 05/27/2024 Start: 02-26-2024 End: 05-27-2024 Thyrotropin [Units/volume] in Serum or Plasma THYROID STIMULATING HORMONE Lab Routine Medication management Expected: 02/26/2024, Expires: 05/27/2024 [facility] Work Phone: Comment on above: Expected: 02/26/2024 , Expires: 05/27/2024 Start: 02-10-2024 Influenza vaccination Influenza Vacc ine (#1) [facility] Comment on above: Postponed from 04/13 (Declined at this time) Start: 02-02-2024 Hemoglobin A1c measurement HbA1C [facility] Start: 12-15-2023 ANNUAL PCP TEAM SENIOR EXECUTIVE ASSISTANT ZACK DISEASE VISIT ANNUAL PCP TEAM CHRONIC DISEASE VISIT [facility] Start: 11-01-2023 Hemoglobin A1c/Hemoglobin.total in Blood HbA1C [facility] Start: 10-02-2023 End: 01-01-2024 Urinalysis complete panel - Urine URINALYSIS WITH MICROSCOPIC, REFLEX CULTURE Lab Routine Kidney stones Abnormal urinalysis Expected: 10/02/2023, Expires: 01/01/2024 [facility] Work Phone: Comment on above: Expected: 10/02/2023 , Expires: 01/01/2024 Start: 09-24-2023 End: 10-16-2024 Ct abdomen & pelvis w/o contrst 1/> body re CT UROGRAM WO/W IVCON Radiology Routine Gross hematuria Expected: 09/24/2023, Expires: 10/16/2024 [facility] Work Phone: Comment on above: Expected: 09/24/2023 , Expires: 10/16/2024 Start: 09-17-2023 End: 12-17-2023 CREATININE BLD CREATININE BLD Lab Routine Gross hematuria Expected: 09/17/2023, Expires: 12/17/2023 [facility] Work Phone: Comment on above: Expected: 09/17/2023 , Expires: 12/17/2023 Start: 09-17-2023 End: 12-17-2023 Urinalysis complete panel - Urine URINALYSIS WITH MICROSCOPIC, REFLEX CULTURE Lab Routine Gross hematuria History of kidney stones Expected: 09/17/2023, Expires: 12/17/2023 [facility] Work Phone: Comment on above: Expected: 09/17/2023 , Expires: 12/17/2023 Start: 09-14-2023 Glaucoma screening Dilated Retinal E xam [facility] Start: 09-14-2023 Hepatitis C antibody , confirmatory test DILATED RETINAL EXAM [facility] Start: 08-13-2023 Behavioral Health Screening Behavioral Health Screening [facility] Start: 08-13-2023 Depression Assessment Depression Ass essment 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 Expected: 07/25/2023 (Approximate), Expires: 09/24/2023 [facility] Work Phone: Comment on above: Expected: 07/25/2023 (Approximate), Expires: 09/24/2023 Start: 07-25-2023 End: 09-24-2023 Hemoglobin A1c in Blood HGB A1C Lab Routine Type 2 diabetes mellitus without complication, without long-term current use of insulin (HCC) Expected: 07/25/2023 (Approximate), Expires: 09/24/2023 [facility] Work Phone: Comment on above: Expected: 07/25/2023 (Approximate), Expires: 09/24/2023 Start: 07-25-2023 End: 09-24-2023 Lipid 1996 panel - Serum or Plasma LIPID PANEL BASIC Lab Routine Mixed hyperlipidemia Expected: 07/25/2023 (Approximate), Expires: 09/24/2023 [facility] Work Phone: Comment on above: Expected: 07/25/2023 (Approximate), Expires: 09/24/2023 Start: 07-02-[address] [facility] Start: 07-02-2023 COLORECTAL CANCER SCREENING COLORECTAL CANCER SCREENING [facility] Start: 06-22-2023 ANNUAL PCP TEAM SENIOR EXECUTIVE ASSISTANT ZACK DISEASE VISIT ANNUAL PCP TEAM CHRONIC DISEASE VISIT [facility] Start: 06-22-2023 COVID-19 VACCINE (#1) COVID-19 VACCI NE (#1) [facility] Comment on above: Postponed from 11/04 (Declined at this time) Start: 06-22-2023 PNEUMOCOCCAL (2 - PCV) PNEUMOCOCCAL (2 - PCV) [facility] Comment on above: Postponed from 02/14 (Declined at this time) Start: 06-22-2023 Pneumococcal vaccination Pneumococcal Vaccine (2 - PCV) [facility] Comment on above: Postponed from 02/14 (Declined at this time) Start: 06-22-2023 SHINGRIX VACCINE (1 of 2) SHINGRIX VACCINE (1 of 2) [facility] Comment on above: Postponed from 05/07 (Declined at this time) Start: 04-13-2023 Influenza vaccination INFLUENZA (Sea son Ended) [facility] Start: 02-09-2023 Influenza vaccination INFLUENZA (#1) [facility] Comment on above: Postponed from 04/13 (Declined at this time) Start: 01-20-2023 ANNUAL PCP TEAM SENIOR EXECUTIVE ASSISTANT ZACK DISEASE VISIT ANNUAL PCP TEAM CHRONIC DISEASE VISIT [facility] Start: 01-05-2023 ANNUAL PCP TEAM SENIOR EXECUTIVE ASSISTANT ZACK DISEASE VISIT ANNUAL PCP TEAM CHRONIC DISEASE VISIT [facility] Start: 11-23-2022 Hepatitis B surface antibody level LDL CHOLESTEROL [facility] Start: 08-30-2022 Hepatitis C antibody , confirmatory test DILATED RETINAL EXAM [facility] Start: 08-13-2022 DEPRESSION ASSESSMENT DEPRESSION ASS ESSMENT [facility] Start: 08-04-2022 End: 10-04-2022 Bacteria identified in Urine by Culture URINE CULTURE Microbiology Routine Nephrolithiasis Expected: 08/04/2022, Expires: 10/04/2022 [facility] Work Phone: Comment on above: Expected: 08/04/2022 , Expires: 10/04/2022 Start: 08-04-2022 End: 10-04-2022 Basic metabolic 2000 panel - Serum or Plasma BASIC METABOLIC PNL Lab Routine Nephrolithiasis Expected: 08/04/2022, Expires: 10/04/2022 [facility] Work Phone: Comment on above: Expected: 08/04/2022 , Expires: 10/04/2022 Start: 08-04-2022 End: 10-04-2022 CBC W Auto Differential panel - Blood CBC + DIFF Lab Routine Nephrolithiasis Expected: 08/04/2022, Expires: 10/04/2022 [facility] Work Phone: Comment on above: Expected: 08/04/2022 , Expires: 10/04/2022 Start: 08-04-2022 End: 10-04-2022 Urinalysis complete panel - Urine URINALYSIS, WITH MICROSCOPIC Lab Routine Nephrolithiasis Expected: 08/04/2022, Expires: 10/04/2022 [facility] Work Phone: Comment on above: Expected: 08/04/2022 , Expires: 10/04/2022 Start: 07-29-2022 ANNUAL PCP TEAM SENIOR EXECUTIVE ASSISTANT ZACK DISEASE VISIT ANNUAL PCP TEAM CHRONIC DISEASE VISIT [facility] Start: 05-25-2022 Hemoglobin A1c/Hemoglobin.total in Blood HBA1C [facility] Start: 2022 RSV Vaccine (1 - 1-d ose 60+ series) RSV Vaccine (1 - 1-dose 60+ series) [facility] Start: 2022 RSV Vaccine (1 - Ris k 60-74 years 1-dose series) RSV Vaccine (1 - Risk 60-74 years 1-dose series) [facility] Start: 04-13-2022 Influenza vaccination INFLUENZA (Sea son Ended) [facility] Start: 02-08-2022 Adult depression screening assessment DEPRESSION SCREENING [facility] Start: 06-14-2020 PROSTATE CANCER SCREENING DISCUSSION PROSTATE CANCER SCREENING DISCUSSION [facility] Start: 06-14-2020 Prostate specific antigen measurement Prostate Cancer Screening Discussion [facility] Start: 05-26-2020 3 comp foot exam completed DIABETIC FOOT EXAM [facility] Start: 05-24-2020 Hepatitis B screening URINE AL BUMIN:CREATININE RATIO [facility] Start: 02-14-2017 PNEUMOCOCCAL (2 - PCV) PNEUMOCOCCAL (2 - PCV) [facility] Start: 02-14-[address] [facility] Start: 05-06-2015 FECAL OCCULT BLOOD FECAL OCCULT BLOO D [facility] Start: 05-06-2015 Screening for malign ant neoplasm of colon Fecal Occult Blood [facility] Start: 2012 SHINGRIX VACCINE (1 of 2) SHINGRIX VACCINE (1 of 2) [facility] Start: 2007 COLOGUARD (FIT-DNA) COLOGUARD (FIT-D NA) [facility] Start: [address] COLONOGRAPHY [facility] Start: 2007 Screening for malign ant neoplasm of colon [facility] Start: 2007 SIGMOIDOSCOPY SIGMOIDOSCOPY [facility] Start: 1981 HEPATITIS B (1 of 3 - Risk 3-dose series) HEPATITIS B (1 of 3 - Risk 3-dose series) [facility] Start: 1981 SHINGRIX VACCINE (1 of 2) SHINGRIX VACCINE (1 of 2) [facility] Start: 1980 Anxiety Screening Anxiety Screening [facility] Start: 1980 Depression Screening Depression Scre ening [facility] Start: 1980 HIV SCREENING HIV SCREENING [facility] Start: 1980 HIV screening HIV Screening [facility] Start: 1967 COVID-19 VACCINE (#1) COVID-19 VACCI NE (#1) [facility] Start: 1967 COVID-19 VACCINE (1) COVID-19 VACCIN E (1) [facility] Start: 1962 Covid-19 Vaccine (#1) Covid-19 Vacci ne (#1) [facility] End: 06-22-2023 CBC panel - Blood by Automated count CBC Lab Routine Type 2 diabetes mellitus without complication, without long-term current use of insulin (HCC) Every 6 months for 12 Occurrences starting 06/22/2022 until 06/22/2023 [facility] Work Phone: Comment on above: Every 6 months for 1 2 Occurrences starting 06/22/2022 until 06/22/2023 End: 09-08-2025 CBC panel - Blood by Automated count COMPLETE BLOOD COUNT Lab Routine Type 2 diabetes mellitus without complication, without long-term current use of insulin (HCC) Every 6 months for 12 Occurrences starting 09/08/2024 until 09/08/2025 [facility] Comment on above: Every 6 months for 1 2 Occurrences starting 09/08/2024 until 09/08/2025 End: 06-22-2023 Comprehensive metabolic 2000 panel - Serum or Plasma COMP METABOLIC PANEL Lab Routine Type 2 diabetes mellitus without complication, without long-term current use of insulin (HCC) Every 6 months for 12 Occurrences starting 06/22/2022 until 06/22/2023 [facility] Work Phone: Comment on above: Every 6 months for 1 2 Occurrences starting 06/22/2022 until 06/22/2023 End: 09-08-2025 Comprehensive metabolic 2000 panel - Serum or Plasma COMPREHENSIVE METABOLIC PANEL Lab Routine Type 2 diabetes mellitus without complication, without long-term current use of insulin (HCC) Every 6 months for 12 Occurrences starting 09/08/2024 until 09/08/2025 [facility] Comment on above: Every 6 months for 1 2 Occurrences starting 09/08/2024 until 09/08/2025 End: 07-22-2023 Ct abdomen & pelvis w/o contrast material CT FLANK WO IVCON Radiology RIMMA Gross hematuria Calculus of other lower urinary tract location 1 Occurrences starting 06/22/2022 until 07/22/2023 [facility] Work Phone: Comment on above: 1 Occurrences starti ng 06/22/2022 until 07/22/2023 End: 06-22-2023 Hemoglobin A1c in Blood HGB A1C Lab Routine Type 2 diabetes mellitus without complication, without long-term current use of insulin (HCC) Every 3 months for 24 Occurrences starting 06/22/2022 until 06/22/2023 [facility] Work Phone: Comment on above: Every 3 months for 2 4 Occurrences starting 06/22/2022 until 06/22/2023 End: 09-08-2025 Hemoglobin A1c in Blood HEMOGLOBIN A1C Lab Routine Type 2 diabetes mellitus without complication, without long-term current use of insulin (HCC) Every 3 months for 24 Occurrences starting 09/08/2024 until 09/08/2025 [facility] Work Phone: Comment on above: Every 3 months for 2 4 Occurrences starting 09/08/2024 until 09/08/2025 End: 06-22-2023 Lipid 1996 panel - Serum or Plasma LIPID PANEL BASIC Lab Routine Type 2 diabetes mellitus without complication, without long-term current use of insulin (HCC) Every 6 months for 12 Occurrences starting 06/22/2022 until 06/22/2023 [facility] Work Phone: Comment on above: Every 6 months for 1 2 Occurrences starting 06/22/2022 until 06/22/2023 End: 09-08-2025 Lipid 1996 panel - Serum or Plasma LIPID PANEL BASIC Lab Routine Type 2 diabetes mellitus without complication, without long-term current use of insulin (HCC) Every 6 months for 12 Occurrences starting 09/08/2024 until 09/08/2025 [facility] Comment on above: Every 6 months for 1 2 Occurrences starting 09/08/2024 until 09/08/2025 End: 02-19-2023 LUNG VOLUMES LUNG VOLUMES PFT Routine Cough 1 Occurrences starting 01/20/2022 until 02/19/2023 [facility] Work Phone: Comment on above: 1 Occurrences starti ng 01/20/2022 until 02/19/2023 End: 02-19-2023 METHACHOLINE CHALLENGE METHACHOLINE CHALLENGE PFT Routine Cough Bronchitis 1 Occurrences starting 01/20/2022 until 02/19/2023 [facility] Work Phone: Comment on above: 1 Occurrences starti ng 01/20/2022 until 02/19/2023 POST VOID RESIDUAL POST VOID RES IDUAL Procedures Routine Kidney stones Ordered: 08/22/2022 [facility] Work Phone: Comment on above: Ordered: 08/22/2022 End: 02-19-2023 SPIROMETRY - BASELINE AND POST DILATOR SPIROMETRY - BASELINE AND POST DILATOR PFT Routine Cough 1 Occurrences starting 01/20/2022 until 02/19/2023 [facility] Work Phone: Comment on above: 1 Occurrences starti ng 01/20/2022 until 02/19/2023 Tdap vaccine 7 yrs/> im TDAP VAC CINE, AGE 7+ YR (ADACEL, BOOSTRIX) Immunization/Injection Routine Need for vaccination Ordered: 06/27/2023 [facility] Work Phone: Comment on above: Ordered: 06/27/2023 End: 06-22-2023 Thyrotropin [Units/volume] in Serum or Plasma TSH BLD Lab Routine Type 2 diabetes mellitus without complication, without long-term current use of insulin (HCC) Every 3 months for 24 Occurrences starting 06/22/2022 until 06/22/2023 [facility] Work Phone: Comment on above: Every 3 months for 2 4 Occurrences starting 06/22/2022 until 06/22/2023 End: 09-08-2025 Thyrotropin [Units/volume] in Serum or Plasma THYROID STIMULATING HORMONE Lab Routine Type 2 diabetes mellitus without complication, without long-term current use of insulin (HCC) Every 3 months for 24 Occurrences starting 09/08/2024 until 09/08/2025 [facility] Comment on above: Every 3 months for 2 4 Occurrences starting 09/08/2024 until 09/08/2025 US Lower extremity vein US LEG V EIN DVT UNL VAS LAB Vascular Lab STAT Pain of left calf Edema of left lower extremity 03/19/2024 10:54 AM EDT [facility] Work Phone: [facility] Immunizations Immunization Date Immunization Notes Care Provider Alicia peters 03-10-2024 pneumococcal polysaccharide vaccine, 23 valent Bettye Powell MD Work Phone: [facility] 08-03-2023 tetanus toxoid, redu kristina diphtheria toxoid, and acellular pertussis vaccine, adsorbed Everette Blaz LIVESTOCK BRANDS INSPECTOR.SOLE STAPLER WELT, DNP Work Phone: [facility] 08-08-2016 influenza virus vacc ine, unspecified formulation Amada Older LIVESTOCK BRANDS INSPECTOR.[facility] Work Phone: [facility] 02-15-2016 pneumococcal polysaccharide vaccine, 23 valent Amada Older LIVESTOCK BRANDS INSPECTOR.[facility] Work Phone: [facility] Work Phone: 12-24-2014 diphtheria and tetan us toxoids, adsorbed for pediatric use Amada 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 WELT Work Phone: [facility] Work Phone: 12-24-2014 tetanus and diphther ia toxoids, adsorbed, preservative free, for adult use (5 Lf of tetanus toxoid and 2 Lf of diphtheria toxoid) Amada 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 WELT Work Phone: [facility] 09-14-2006 tetanus toxoid, redu kristina diphtheria toxoid, and acellular pertussis vaccine, adsorbed Amada 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 WELT Work Phone: [facility] Work Phone: 04-30-1996 diphtheria and tetan us toxoids, adsorbed for pediatric use Amada Older [employer]STOCK BR[employer]S INSPECTOR.[facility] Work Phone: [facility] Work Phone: Payers Date Payer Category Payer Private Health Insurance MMO SUP [employer] PPO [id number] 2024 Unknown [id number] 2024 Self-pay 2019 Unknown JALIL JENY GONZALEZ PPO [id number] 2019-Present [phone] [address] [place] [address] PPO [id number] 2019 Unknown [id number] 2019 Unknown [id number] Unknown [id number] Unknown [id number] Unknown [id number] Unknown [id number] Unknown [id number] Social History Date Type Detail Facility Start: 11-22-2018 End: 09-17-2023 Tobacco smoking status NHIS Ex-smoker [facility] Work Phone: End: 02-16-1988 History of tobacco use Current smoker [facility] Work Phone: End: 02-16-1988 History of tobacco use Cigar Smoker [facility] Work Phone: Start: 07-29-2021 End: 01-20-2022 Alcohol intake Current drinker of alcohol (finding) [facility] Start: 02-08-2021 History SDOH Alcohol Frequency 98 [facility] Start: 07-02-2020 History SDOH Alcohol Comment bourbon every two to three weeks [facility] Start: 02-08-2021 History SDOH Housing Homeless Last Year 3 [facility] Start: 11-22-2018 End: 06-22-2022 Tobacco Comment Pt will have an occassional cigar.- done with cigars [facility] Start: 1960 Sex Assigned At Not on file C [facility] Start: 12-26-2021 End: 07-11-2022 Exposure to SARS-CoV-2 (event) Not sure [facility] Work Phone: Start: 11-22-2018 End: 09-17-2023 Tobacco use and exposure Smokeless tobacco non-user [facility] Work Phone: Start: 02-08-2021 End: 09-03-2022 History of [address] function [facility] Start: 02-08-2021 End: 09-03-2022 Social connection and isolation panel [facility] In a typical week, how many times do you talk on the telephone with family, friends, or neighbors? Patient refused [facility] Are you now , , , , never or living with a partner? Refused [facility] (I/We) worried whether (my/our) food would run out before (I/we) got money to buy more. DK or Refused [facility] Start: 09-17-2023 End: 09-08-2024 Alcohol intake Ex-drinker (finding) [facility] Has the [employer], gas, oil, or water [employer] threatened to shut off services in your home in past 12Mo No [facility] Are you now , , , , never or living with a partner? [facility] How often to you hav e a drink containing alcohol? 2-[address] [facility] How many standard drinks containing alcohol do you have on a typical day? [address] [facility] How often do you hav e 6 or more drinks on 1 occasion? Never [facility] Do you feel stress - tense, restless, nervous, or anxious, or unable to sleep at night because your mind is troubled all the time - these days [OSQ] Not at all [facility] (I/We) worried whether (my/our) food would run out before (I/we) got money to buy more. Never true [facility] NEGATED: Highlighted rowStart: NINF History of tobacco use Passive smoker [facility] Medical Equipment Procedure Code Equipment Code Equipment Origin al Text Equipment Identifier Dates Mesh Soft Prolen e 50x50 Cm - [id number] Start: 06-26-2018 Functional Status Date Assessment Result Facility 06-30-2018 Are you deaf, or do you have serious difficulty hearing No 06/30/2018 11:26 AM Candy Tran APRN.ALANIS No [facility] Work Phone: 06-30-2018 Are you blind, or do you have serious difficulty seeing, even when wearing glasses No 06/30/2018 11:26 AM Candy Tran APRN.[employer]LE STAPLER WELT No [facility] 06-30-2018 Do you have difficul ty dressing or bathing No 06/30/2018 11:26 AM Candy Tran APRN.SOLE STAPLER WELT [facility] 06-30-2018 Because of a physica l, mental, or emotional condition, do you have difficulty doing errands alone such as visiting a physician's office or shopping No 06/30/2018 11:26 AM Candy Tran APRN.ALANIS No [facility] 11-07-2017 Do you have serious difficulty walking or climbing stairs No 11/07/2017 3:51 PM Promise Guy (Rn), RN No [facility] Mental Status Date Assessment Result Facility 06-30-2018 Because of a physica l, mental, or emotional condition, do you have serious difficulty concentrating, remembering, or making decisions No 06/30/2018 11:26 AM Candy Tran APRN.CNP No [facility] Clinical Notes 06-26-2018 to 09-26-2024 Telephone Encounter - Candy Sarah RN - 09/26/2024 4:38 PM ESTTelephone Encounter - Candy Sarah RN - 09/26/2024 4:38 PM Bettye Nieto MD - 09/08/2024 8:17 AM ESTPatient Instructions Note Date & Type Note [facility] 09-26-2024 Telephone encounter Note The patient has [...] Sarah RN September 26, 2024 4:40 PM [facility] 09-26-2024 Miscellaneous Notes The patient has been [...] 2024 4:40 PM documented in this encounter [facility] 09-08-2024 Note HNO ID: [id number] Author: BETTYE POWELL MD Service: ? Author [...] stable. He has been to see an marketing services rep recently. He has been to see Michelle [...] Date ABDOMINAL SURGERY HX CARDIAC CATH 10/24/2018 [facility] with stent placement COLON SURGERY HX [...] ileostomy reversal PSA (EXTERNAL) 06/14/2015 normal (0.76) [facility] REMOVAL OF KIDNEY STONE 2022 FAMILY [...] nasal congestion/sinus symptoms, (more content not included)... [facility] 09-08-2024 History of Present illness Narrative Reason [...] stable. He has been to see an marketing services rep recently. He has been to see Michelle [...] Date ABDOMINAL SURGERY HX CARDIAC CATH 10/24/2018 [facility] with stent placement COLON SURGERY HX [...] ileostomy reversal PSA (EXTERNAL) 06/14/2015 normal (0.76) [facility] REMOVAL OF KIDNEY STONE 2022 FAMILY [...] RATIO, URINE 2. 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 - ICD9: 414.01, ICD10: I25.10 Stable, no chest pain or SOB 3. BMI 39.0-39.9,adult - ICD9: V85.39, ICD10: Z68.39 Advised to cont efforts with exercising and eating well 4. Vitamin B12 deficiency - ICD9: 266.2, ICD10: E53.8 - VITAMIN B12 Bettye Powell MD documented in this encounter [facility] 05-15-2024 Telephone encounter Note Spoke with pt and he did get it thru his textile machine mechanic. Pt was instructed to keep this on hand incase he needs it. It has been while since he ordered. Kept what he had on hand and then could no longer ready the label on the bottle and requested a refill. No need to fill here at this time. Lea Hamilton LPN [facility] 05-15-2024 Miscellaneous Notes Spoke with pt and he did get it thru his textile machine mechanic. Pt was instructed to keep this on [...] Marie Mcelroy MA documented in this encounter [facility] 05-12-2024 Telephone encounter Note Prescription Refill [...] Quintero LPN May 12, 2024 2:[address] [facility] 05-12-2024 Miscellaneous Notes Prescription Refill Information [...] the pharmacy. TY documented in this encounter [facility] 05-12-2024 Telephone encounter Note Please call patient or send a Mychart message when all requested Rx's are sent to the pharmacy. TY [facility] 05-12-2024 Telephone encounter Note This has not been refilled by us in over 3 years. Has he been getting this through a different provider? Has something changed and he is needing again? Thank you Amada Muro APRN.SOLE STAPLER WELT [facility] Work Phone: 05-12-2024 Telephone encounter Note [...] notify patient. Please review. Marie Mcelroy MA [facility] 03-20-2024 Telephone encounter Note Phoned patient and went over results, notes from Lizeth Bradford NP with understanding. [facility] 03-20-2024 Miscellaneous Notes Phoned patient and went over results, notes from Lizeth Bradford NP with understanding. ----- Message from Lizeth Bradford APRN.SOLE STAPLER WELT sent at 03/19/2024 5:08 PM EDT ----- Please let the patient know as of right now the preliminary result of the ultrasound is negative for blood clots. I will contact him on My Chart once the final has resulted Lizeth Bradford APRN.SOLE STAPLER WELT documented in this encounter [facility] 03-20-2024 Telephone encounter Note ----- Message from Lizeth Bradford APRN.SOLE STAPLER WELT sent at 03/19/2024 5:08 PM EDT ----- Please let the patient know as of right now the preliminary result of the ultrasound is negative for blood clots. I will contact him on My Chart once the final has resulted Lizeth Bradford APRN.SOLE STAPLER WELT [facility] 03-19-2024 Note HNO ID: [id number] Author: LIZETH BRADFORD APRN.SOLE STAPLER WELT Service: ? Author Type: Nurse Practitioner Type: [...] ABDOMINAL SURGERY HX 10/24/2018: CARDIAC CATH Comment: [facility] with stent placement No date: COLON [...] reversal 06/14/2015: PSA (EXTERNAL) Comment: normal (0.76) [facility] 2022: REMOVAL OF KIDNEY STONE ALLERGIES [...] Take 50 mg by mouth once daily. [facility]) ergocalciferol 50,000 unit capsule (VITAMIN [...] reviewed. Constitutional: Appeara (more content not included)... [facility] 03-19-2024 History of Present illness Narrative CC: [...] ABDOMINAL SURGERY HX 10/24/2018: CARDIAC CATH Comment: [facility] with stent placement No date: COLON SURGERY HX 06/13/2017: COLONOSCOPY FLX DX W/COLLJ SPEC WHEN PFRMD Comment: Colonoscopy 05/29/2018: COLONOSCOPY FLX DX W/COLLJ SPEC WHEN PFRMD Comment: Colonoscopy 06/26/2019: COLONOSCOPY FLX DX W/COLLJ SPEC WHEN PFRMD Comment: Colonoscopy 07/02/2020: COLONOSCOPY FLX DX W/COLLJ SPEC WHEN PFRMD Comment: Colonoscopy No date: ESOPHAGOGASTRODUODENOSCOPY TRANSORAL DIAGNOSTIC Comment: EGD 2017: HERNIA REPAIR HX Comment: incisional 07/11/2022: LITHOLINK CKD PROGRAM 07/2017: PAST SURGICAL HISTORY OF Comment: Diagnostic laparoscopy, open low anterior rectal and sigmoid resection, mobilization of splenic flexure, flexible sigmoidoscopy, diverting loop ileostomy 11/05/2017: PAST SURGICAL HISTORY OF Comment: ileostomy reversal 06/14/2015: PSA (EXTERNAL) Comment: normal (0.76) [facility] 2022: REMOVAL OF KIDNEY STONE ALLERGIES [...] Take 50 mg by mouth once daily. [facility]) ergocalciferol 50,000 unit capsule (VITAMIN [...] VEIN DVT UNL VAS LAB Lizeth Bradford APRN.SOLE STAPLER WELT Prescription instructions reviewed with patient as applicable. Potential red flag symptoms discussed with the patient. Reviewed appropriate action plan to take if red flag symptoms occur. Patient agreeable to treatment plan. Lizeth Bradford APRN.SOLE STAPLER WELT documented in this encounter [facility] 03-10-2024 History of Present illness Narrative Reason for Visit Patient presents with: 6 month follow up aWldo Zee is a 63 year old male [...] stable. He has been to see an marketing services rep recently. He has been to see Michelle [...] Date ABDOMINAL SURGERY HX CARDIAC CATH 10/24/2018 [facility] with stent placement COLON SURGERY HX [...] ileostomy reversal PSA (EXTERNAL) 06/14/2015 normal (0.76) [facility] REMOVAL OF KIDNEY STONE 2022 FAMILY [...] Bettye Powell MD documented in this encounter [facility] 03-10-2024 Note HNO ID: [id number] Author: BETTYE POWELL MD Service: ? Author [...] stable. He has been to see an marketing services rep recently. He has been to see Michelle schreiber recently. Had a colonoscopy recently, good for 5 years No problem-specific Assessment AND Plan notes found for this encounter. PAST MEDICAL HISTORY Diagnosis Date Coronary artery disease Diabetes (HCC) Esophageal reflux Fibromyalgia Glaucoma Hypertension Kidney stone Kidney stones 2023 Non-STEMI (non-ST elevated myocardial infarction) (HCC) 10/24/2018 Other and unspecified hyperlipidemia Rectal cancer (HCC) Diagnostic laparoscopy, open low anterior rectal and sigmoid resection, mobilization of splenic flexure, flexible sigmoidoscopy, diverting loop ileostomy 07/2017 Thyroid disease PAST SURGICAL HISTORY Procedure Laterality Date ABDOMINAL SURGERY HX CARDIAC CATH 10/24/2018 [facility] with stent placement COLON SURGERY HX [...] ileostomy reversal PSA (EXTERNAL) 06/14/2015 normal (0.76) [facility] REMOVAL OF KIDNEY STONE 2022 FAMILY [...] GI: No dysp (more content not included)... [facility] 02-26-2024 Note Patient Outreach (IN TMMN) ---- WALDO ZEE ([id number]) 1960 [facility] Date Time Provider Department 02/26/24 BETTYE [...] [E11.9] Order(s):THYROID STIMULATING HORMONE [SQTSH] Order #: [id number] FUTURE COMPLETE BLOOD COUNT [SQCBC] Order #: [id number] FUTURE Prescriptions as of 02/29/2024 - levothyroxine [...] [K43.2] 06/26/2018 06/02/2020 Coronary artery disease involving tanacross marcano*06/02/2020 Fatty liver [K76.0] 02/08/2021 Morbid obesity (HCC) [E66.01] 02/08/2021 Burning sensation of feet [R20.8] 08/03/2023 History of colonic polyps [Z86.010] 08/31/2023 Encounter Status:Closed by RADHA RUEDA on 02/29/24 [facility] 11-26-2023 Miscellaneous Notes Patient scheduled f/u appt [...] now.. Michelle Valencia documented in this encounter [facility] 10-02-2023 Miscellaneous Notes Called patient back and answered his questions. Patient verbalized understanding. Patient called today regarding his recent CT scan Would like to discuss results, and has additional questions Please contact the patient, he can be reached at [phone] documented in this encounter [facility] 10-02-2023 Miscellaneous Notes Called patient and [...] Everette Cross DNP, ALANIS Department of Urology [facility] documented in this encounter [facility] 10-01-2023 History of Present illness Narrative [...] PATIENT PRESENTS WITH AN IMPLANTABLE OR ATTACHED COLLAR RUNNER: No ALLERGIES: Reviewed and unchanged CONTRAST ALLERGY: [...] TIME: 1:41 PM documented in this encounter [facility] 10-01-2023 Note HNO ID: [id number] Author: VIRGINIE BENAVIDEZ RT(R) Service: ? Author Type: Seat Scooper Machine Type: Progress Notes Filed: 10/01/2023 13:41 Note [...] PATIENT PRESENTS WITH AN IMPLANTABLE OR ATTACHED COLLAR RUNNER: No ALLERGIES: Reviewed and unchanged CONTRAST ALLERGY: [...] DATE: October 01, 2023 TIME: 1:41 PM [facility] 09-17-2023 Instructions Everette Cross APRN.ALANIS, ROSALIND - [...] skin on increases the oxalate content, but hungarian fries and yams have around 40 mg to 50 mg per serving Beans: navy beans (70 mg per serving) and soybeans (50 mg per serving) Certain types of flour: soy flour (90 mg per serving), brown rice flour (65 mg per serving), and barley flour (40 mg per serving) Beets: about 80 mg per serving New Freedom powder and hot chocolate: 65 mg per [...] Cross APRN.ROSALIND THAPA documented in this encounter [facility] 09-17-2023 Note HNO ID: [id number] Author: EVERETTE CROSS APRN.ROSALIND THAPA Service: ? Author Type: Nurse Practitioner Type: Progress Notes Filed: 09/28/2023 16:12 Note Text: [facility] Referring provider: Bettye Powell MD New [...] Date ABDOMINAL SURGERY HX CARDIAC CATH 10/24/2018 [facility] with stent placement COLON SURGERY HX [...] ileostomy reversal PSA (EXTERNAL) 06/14/2015 normal (0.76) [facility] REMOVAL OF KIDNEY STONE 2022 Family [...] needed for cold/allergy (more content not included)... [facility] 09-17-2023 History of Present illness Narrative [facility] Referring provider: Bettye Powell MD New [...] Date ABDOMINAL SURGERY HX CARDIAC CATH 10/24/2018 [facility] with stent placement COLON SURGERY HX [...] ileostomy reversal PSA (EXTERNAL) 06/14/2015 normal (0.76) [facility] REMOVAL OF KIDNEY STONE 2022 Family [...] ICD10: Z87.442 MDM: Chronic - Hx of susie ox stones. Previous LASER CYSTOURETHROSCOPY with Dr. [...] which included preparing to see the patient, [id number] patient care, completing clinical documentation, performing a medically appropriate examination, counseling and educating the patient/family/caregiver and ordering medications, tests, or procedures. Everette Cross DNP, ALANIS Department of Urology [facility] documented in this encounter [facility] 09-11-2023 Note HNO ID: [id number] Author: TIFFANY TA PA-C Service: ? Author Type: Physician Supervisor [employer] Type: Progress Notes Filed: 09/11/2023 14:11 Note Text: This note was created using Screenzter. Subjective Waldo Zee is a 63 year [...] Date ABDOMINAL SURGERY HX CARDIAC CATH 10/24/2018 [facility] with stent placement COLON SURGERY HX [...] ileostomy reversal PSA (EXTERNAL) 06/14/2015 normal (0.76) [facility] REMOVAL OF KIDNEY STONE 2022 FAMILY [...] regular rhythm. Hea (more content not included)... [facility] 08-24-2023 Telephone encounter Note Patient notified [facility] 08-24-2023 Miscellaneous Notes Patient notified He should check with prescribing physician regarding the metformin, all other meds can take as usual. Anything that he has to take in the morning, can take with tiny sip of water morning of procedure 08/31/2023 COLON/EGD ASC Patient asking in regards to what medications he can and cannot take prior to procedure Please advise Britney Leung Primary Teacher Regla please place orders documented in this encounter [facility] 08-24-2023 Telephone encounter Note He should check with prescribing physician regarding the metformin, all other meds can take as usual. Anything that he has to take in the morning, can take with tiny sip of water morning of procedure [facility] Work Phone: 08-23-2023 Telephone encounter Note 08/31/2023 COLON/EGD ASC Patient asking in regards to what medications he can and cannot take prior to procedure Please advise Britney Leung Primary Teacher Regla please place orders [facility] 06-27-2023 Miscellaneous Notes Patient calls and [...] Lea Hamilton LPN documented in this encounter [facility] 06-01-2023 Miscellaneous Notes TC to patient to verify that he received order. Patient states he has not and is asking that the order be resent through ZipZap message. Offered to print and mail to patients home address but patient declines, stating he wants it through ZipZap. Completed as requested. Nothing further at this [...] updates. Thank you. documented in this encounter [facility] 05-28-2023 Miscellaneous Notes Please seen PCP phone encounter from 05/28/2023. Beatrice Schreiber LPN Waldo called. He would like to speak with someone in Dr. Lowe's office regarding orthotics, he is looking for a specific type and is not sure if the office carries them or if they can order them. Mitzi Edmonds RN documented in this encounter [facility] 05-04-2023 History of Present illness Narrative [...] cholesterol some of the time. Goes to [facility] and had recent unconcerning routine [...] HISTORY Procedure Laterality Date CARDIAC CATH 10/24/2018 [facility] with stent placement COLONOSCOPY FLX DX [...] ileostomy reversal PSA (EXTERNAL) 06/14/2015 normal (0.76) [facility] ALLERGIES Dust Mites MEDICATIONS metFORMIN (GLUCOPHAGE) [...] aerobic exercise 4. 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 - ICD9: 414.01, [...] Patient agreeable to treatment plan. Amada Muro APRN.ALANIS documented in this encounter [facility] 01-31-2023 Miscellaneous Notes Left message for [...] Elly Santana LPN documented in this encounter [facility] 01-15-2023 Miscellaneous Notes Patient has been [...] pharmacy. No need to notify patient. Priyanka Valencia documented in this encounter [facility] 12-14-2022 History of Present illness Narrative Reason for Visit Patient presents with: Back Pain: Lower back pain x 4-5 days Recheck: Appointment moved up from 12/20 Waldo Mark Zee is a 62 year old male [...] eats something fast food - raymonds at [employer]... BF is usually cereal and milk. He [...] is completely normal. He did work the [employer] last week. Checks him bp at home [...] HISTORY Procedure Laterality Date CARDIAC CATH 10/24/2018 [facility] with stent placement COLONOSCOPY FLX DX [...] ileostomy reversal PSA (EXTERNAL) 06/14/2015 normal (0.76) [facility] FAMILY HISTORY Adopted: Yes Problem Relation [...] and exercise 3. 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 - ICD9: 414.01, ICD10: I25.10 Stable, no chest pain or sob 4. Mixed hyperlipidemia - ICD9: 272.2, ICD10: E78.2 Refused statin medication Bettye Powell MD documented in this encounter [facility] 12-11-2022 Miscellaneous Notes Patient has been [...] 02/08/2021 1.800 uU/mL Please advise. Thank you. Evlira Medina LPN Patient has been identified by name and date of : Yes Requested Prescriptions Pending Prescriptions Disp Refills levothyroxine (LEVOXYL) 50 mcg tablet 90 tablet 3 Sig: Take 1 tablet by mouth once daily. Take on empty stomach. For Thyroid RX INSTRUCTIONS: Patient aware RX will be sent to pharmacy. No need to notify patient. [facility] this [facility] 08-22-2022 Instructions Pedro Ponce PA-C - [...] (1/2 cup) Broccoli, steamed 1 (1/2 cup) Callery jelly 1 (1 Tbsp) Apple, raw 0.7 (1 fruit) [place] flakes 0.6 (1 cup) documented in this encounter [facility] 08-22-2022 History of Present illness Narrative Images from the original note were not included. [facility] ESTABLISHED PATIENT CLINIC NOTE [...] HISTORY Procedure Laterality Date CARDIAC CATH 10/24/2018 [facility] with stent placement COLONOSCOPY FLX DX [...] ileostomy reversal PSA (EXTERNAL) 06/14/2015 normal (0.76) [facility] FAMILY HISTORY: FAMILY HISTORY Adopted: Yes [...] bilateral kidneys > 3 mo. Appt w/ B. MICHAEL Ponce MT, PA-C for new Rx Follow-up MICHAEL [...] Appointment with Pedro. documented in this encounter [facility] 07-12-2022 Miscellaneous Notes [employer] faxed. Will call pt to schedule with Pedro Ponce. Michelle GAGNON Patient needs [employer] and follow-up with Pedro Ponce in [place] documented in this encounter [facility] 07-11-2022 Note HNO ID: [id number] Author: Ruiz Cruz APRN.ROOF MECHANIC Service: Nursing Author Type: Nurse Aeroplane Pilot Type: Anesthesia Procedure Notes Filed: 07/11/2022 1:04 PM Note Text: ANESTHESIOLOGY PROCEDURE NOTE Airway General Information Procedure Start Time/Medication Administration: 07/11/2022 12:59 PM Patient location during procedure: OR Timeout Performed Pre-procedure: timeout performed Consent Obtained: Yes Patient identity confirmed: arm band Staffing ROOF MECHANIC: Ruiz Cruz APRN.ROOF MECHANIC Performed by: JAY Indications and Patient Condition Indications for airway management: anesthesia Preoxygenated: yes anesthesia circuit Patient position: sniffing Method: asleep Cricoid Pressure: No Manual In-Line Stabilization: No Difficult Mask: No Final Airway Details Final airway type: supraglottic airway Number of attempts at approach: 1 Final Supraglottic Airway: i-gel Size 5 Seal Adequate: yes SIGNATURE: Ruiz Cruz APRN.ROOF MECHANIC PATIENT NAME: Waldo Zee DATE: July 11, 2022 TIME: 1:04 PM CSN: [id number] [facility] 06-29-2022 Miscellaneous Notes Images from the original note were not included. Melissa De La Rosa, Coord Chacho Donis MD Cc: Leonor Rodarte RN Patient called to cancel 08/18 surgery. He said he is going to [facility] since it is closer. Thanks! Melissa documented in this encounter [facility] 06-28-2022 Miscellaneous Notes Pt is scheduled for C&P, Rt ULL, possible Rt stent with Dr Gallegos at [facility] on 07/11/22 @ 1:55 (11:55 arrival). Urine culture ordered to be done 07/04. Pt given date, time, prep and arrival instructions over the phone. [facility] [employer] message sent also. Mercedes GAGNON documented in this encounter [facility] 06-27-2022 Miscellaneous Notes Called and spoke with patient regarding a surgery date for Right URS. Offered first available, August [address] Allen. Patient upset he has to wait that long, but accepted appointment. He did advise he may seek care elsewhere given the wait time, informed him that while [facility] would like him to stay for [...] 2022 12:12 PM documented in this encounter [facility] 06-27-2022 Miscellaneous Notes Patient was seen at [facility] ----- Message from Ann Emerson MD sent at 06/24/2022 3:52 AM EST ----- Pt in ED with kidney stone. Will need follow up please. documented in this encounter [facility] 06-26-2022 History of Present illness Narrative [facility] NEW [...] 11 CREAT 0.87 GLUC 160* URINALYSIS: Specific [place], Ur Date Value Ref Range Status 06/23/2022 [...] Date ABDOMINAL SURGERY HX CARDIAC CATH 10/24/2018 [facility] with stent placement COLON SURGERY HX [...] ileostomy reversal PSA (EXTERNAL) 06/14/2015 normal (0.76) [facility] Social History Tobacco Use Smoking status: [...] Abdomen is Non-distended, soft, nontender. Musculoskeletal: Good relay tester strength. Neurologic: Normal gait. Sensation grossly intact. [...] 4 - Moderate documented in this encounter [facility] 06-26-2022 Miscellaneous Notes Patient calling stating [...] Pharmacy number . documented in this encounter [facility] 06-24-2022 Miscellaneous Notes Pt needs scheduled for stone treatment ----- Message from Ann Emerson MD sent at 06/24/2022 3:52 AM EST ----- Pt in ED with kidney stone. Will need follow up please. documented in this encounter [facility] 06-23-2022 Miscellaneous Notes Patient notified. Please ask patient how he is feeling. His CT scan shows an right obstructing kidney stone which is an urgent matter as this can cause damage to kidneys if not resolved. As this is Sunday, it cannot wait until Sunday and he needs to go to the ER. Thank you Amada Muro APRN.ALANIS documented in this encounter [facility] 06-23-2022 History of Present illness Narrative [...] 2022 3:53 PM documented in this encounter [facility] 06-22-2022 History of Present illness Narrative [...] Date ABDOMINAL SURGERY HX CARDIAC CATH 10/24/2018 [facility] with stent placement COLON SURGERY HX [...] ileostomy reversal PSA (EXTERNAL) 06/14/2015 normal (0.76) [facility] FAMILY HISTORY Adopted: Yes Problem Relation [...] cholesterol is 3. 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 - ICD9: 414.01, [...] Bettye Powell MD documented in this encounter [facility] 06-22-2022 Miscellaneous Notes Patient already scheduled Patient has not been seen in 5 months. He really needs to have an appointment to see if blood work or other diagnostic is indicated outside of just a urine sample. Thank you Amada Muro APRN.SOLE STAP[employer]ER WELT Patient has been passing a kidney stone [...] give sample tomorrow. documented in this encounter [facility] 06-22-2022 Miscellaneous Notes PATIENT NOTIFIED OF SAME. Appointment scheduled 06/22/22. documented in this encounter [facility] 02-01-2022 Miscellaneous Notes Patient has been [...] Patricia Gan RN documented in this encounter [facility] 01-23-2022 Miscellaneous Notes Last OV: 01/20/22 Patient has been identified by name and date of : Yes Pending Prescriptions Disp Refills PANTOPRAZOLE 40 MG TABLET,DELAYED RELEASE 90 tablet 3 Sig: Take 1 tablet by mouth once daily. HANNA: No RX INSTRUCTIONS: Patient aware RX will be sent to pharmacy. No need to notify patient. Jackie Copeland LPN documented in this encounter [facility] 01-20-2022 History of Present illness Narrative [...] 2022 8:45 AM documented in this encounter [facility] 01-20-2022 Instructions Bettye Powell MD - 01/20/2022 8:36 AM EDT Likely post viral syndrome. Stagger tests, If chest xr is normal and singulair is not helping or cough worsening at anytime then do the lung volume documented in this encounter [facility] 01-20-2022 History of Present illness Narrative [...] Date ABDOMINAL SURGERY HX CARDIAC CATH 10/24/2018 [facility] with stent placement COLON SURGERY HX [...] ileostomy reversal PSA (EXTERNAL) 06/14/2015 normal (0.76) [facility] FAMILY HISTORY Adopted: Yes Problem Relation [...] Bettye Powell MD documented in this encounter [facility] 01-18-2022 Miscellaneous Notes appointment made for [...] asking Dr. Powell to advise. Requesting [facility] [place] if sending any scripts. Thank you. documented in this encounter [facility] 01-05-2022 History of Present illness Narrative This note was created using Vuze. Subjective Waldo Zee is a 61 year [...] Vitamin D Deficiency Coronary Artery Disease Involving [place] Coronary Artery of [place] Heart Without Angina Pectoris Fatty Liver Morbid [...] but he had taken this from our 4 h youth development specialist in 2011. 2. Dysfunction of Eustachian tube, unspecified laterality - ICD9: 381.81, ICD10: H69.80 - PREDNISONE 20 MG TABLET 3. Type 2 diabetes mellitus without complication, without long-term current use of insulin (HCC) - ICD9: 250.00, ICD10: E11.9 Expect glucose elevation that is transient. Don Salgado MD documented in this encounter [facility] 12-30-2021 Miscellaneous Notes Patient has been [...] patient. Lina Li documented in this encounter [facility] 12-26-2021 Miscellaneous Notes Patient notified. Sending an order of flonase nasal spray for patient. This should help decrease his sinus tightness, drainage, and allergy symptoms. If this is not helpful, patient will need an appointment for further evaluation. Thank you Amada Muro APRN.ALANIS Patient called in on 12/24/21 for cough [...] been working outside a lot. He reports [employer] has not been helping. He states that [...] sinuses make him feel dizzy. Requesting [facility] in [place]. Please advise patient. Thank you. documented in this encounter [facility] 12-24-2021 Miscellaneous Notes Patient call in [...] nose running Protocols used: COUGH - ACUTE [id number] documented in this encounter [facility] 11-24-2021 Miscellaneous Notes Patient notified. Please [...] Muro APRN.CNP The 10-year ASCVD risk score (Guanako RAYNE Jr., et al., 2013) is: 14.2% Values used to calculate the score: Age: 61 years Sex: Male Is Non- : No Diabetic: Yes Tobacco smoker: No Systolic Blood Pressure: 110 mmHg Is BP treated: No HDL Cholesterol: 39 mg/dL Total Cholesterol: 207 mg/dL documented in this encounter [facility] 06-26-2018 History of Past i llness Narrative Problem Noted Date Resolved Date Incisional hernia 06/26/2018 06/02/2020 Family history of colon cancer 05/15/2018 1 Overview: Added automatically from request for surgery [id number] Ventral hernia without obstruction or gangrene 0 04/17/2018 06/02/2020 Overview: Added automatically from request for surgery [id number] Attention to ileostomy 11/06/2017 8 Malnutrition of mild degree 11/06/201705/14 History of rectal cancer 11/05/2017 020 Hypotension 08/06/2017 08/06/[address] 08/06/2017 04/03/2018 Hypokalemia 08/06/2017 08/06/2017 Post-op pain 08/06/2017 06/02/2020 Annual physical exam 05/29/2017 06/02/2020 Overview: Added automatically from request for surgery [id number] Obesity (BMI 30.0-34.9) 07/28/2014 06/02/20 20 Last [...] of this encounter (statuses as of 11/24/2021) [facility] History of Past illness Narrative* Problem Noted Date Resolved Date Incisional hernia 06/26/2018 06/02/2020 Family history of colon cancer 05/15/2018 1 Overview: Added automatically from request for surgery [id number] Ventral hernia without obstruction or gangrene 0 04/17/2018 06/02/2020 Overview: Added automatically from request for surgery [id number] Attention to ileostomy 11/06/2017 8 Malnutrition of mild degree 11/06/201705/14 History of rectal cancer 11/05/2017 020 Hypotension 08/06/2017 08/06/[address] 08/06/2017 04/03/2018 Hypokalemia 08/06/2017 08/06/2017 Post-op pain 08/06/2017 06/02/2020 Annual physical exam 05/29/2017 06/02/2020 Overview: Added automatically from request for surgery [id number] Obesity (BMI 30.0-34.9) 07/28/2014 06/02/20 Last Assessment [...] of this encounter (statuses as of 12/12/2021) [facility] History of Past illness Narrative* Problem Noted Date Resolved Date Incisional hernia 06/26/2018 06/02/2020 Family history of colon cancer 05/15/2018 1 Overview: Added automatically from request for surgery [id number] Ventral hernia without obstruction or gangrene 0 04/17/2018 06/02/2020 Overview: Added automatically from request for surgery [id number] Attention to ileostomy 11/06/2017 8 Malnutrition of mild degree 11/06/201705/14 History of rectal cancer 11/05/2017 020 Hypotension 08/06/2017 08/06/[address] 08/06/2017 04/03/2018 Hypokalemia 08/06/2017 08/06/2017 Post-op pain 08/06/2017 06/02/2020 Annual physical exam 05/29/2017 06/02/2020 Overview: Added automatically from request for surgery [id number] Obesity (BMI 30.0-34.9) 07/28/2014 06/02/20 Last Assessment [...] of this encounter (statuses as of 12/24/2021) [facility] of Past illness Narrative* Problem Noted Date Resolved Date Incisional hernia 06/26/2018 06/02/2020 Family history of colon cancer 05/15/2018 1 Overview: Added automatically from request for surgery [id number] Ventral hernia without obstruction or gangrene 0 04/17/2018 06/02/2020 Overview: Added automatically from request for surgery [id number] Attention to ileostomy 11/06/2017 8 Malnutrition of mild degree 11/06/201705/14 History of rectal cancer 11/05/2017 020 Hypotension 08/06/2017 08/06/[address] 08/06/2017 04/03/2018 Hypokalemia 08/06/2017 08/06/2017 Post-op pain 08/06/2017 06/02/2020 Annual physical exam 05/29/2017 06/02/2020 Overview: Added automatically from request for surgery [id number] Obesity (BMI 30.0-34.9) 07/28/2014 06/02/20 Last Assessment [...] of this encounter (statuses as of 12/26/2021) [facility] of Past illness Narrative* Problem Noted Date Resolved Date Incisional hernia 06/26/2018 06/02/2020 Family history of colon cancer 05/15/2018 1 Overview: Added automatically from request for surgery [id number] Ventral hernia without obstruction or gangrene 0 04/17/2018 06/02/2020 Overview: Added automatically from request for surgery [id number] Attention to ileostomy 11/06/2017 8 Malnutrition of mild degree 11/06/201705/14 History of rectal cancer 11/05/2017 020 Hypotension 08/06/2017 08/06/[address] 08/06/2017 04/03/2018 Hypokalemia 08/06/2017 08/06/2017 Post-op pain 08/06/2017 06/02/2020 Annual physical exam 05/29/2017 06/02/2020 Overview: Added automatically from request for surgery [id number] Obesity (BMI 30.0-34.9) 07/28/2014 06/02/20 20 Last [...] of this encounter (statuses as of 01/01/2022) [facility] of Past illness Narrative* Problem Noted Date Resolved Date Incisional hernia 06/26/2018 06/02/2020 Family history of colon cancer 05/15/2018 1 Overview: Added automatically from request for surgery [id number] Ventral hernia without obstruction or gangrene 0 04/17/2018 06/02/2020 Overview: Added automatically from request for surgery [id number] Attention to ileostomy 11/06/2017 8 Malnutrition of mild degree 11/06/201705/14 History of rectal cancer 11/05/2017 020 Hypotension 08/06/2017 08/06/[address] 08/06/2017 04/03/2018 Hypokalemia 08/06/2017 08/06/2017 Post-op pain 08/06/2017 06/02/2020 Annual physical exam 05/29/2017 06/02/2020 Overview: Added automatically from request for surgery [id number] Obesity (BMI 30.0-34.9) 07/28/2014 06/02/20 Last Assessment [...] of this encounter (statuses as of 01/05/2022) [facility] of Past illness Narrative* Problem Noted Date Resolved Date Incisional hernia 06/26/2018 06/02/2020 Family history of colon cancer 05/15/2018 1 Overview: Added automatically from request for surgery [id number] Ventral hernia without obstruction or gangrene 0 04/17/2018 06/02/2020 Overview: Added automatically from request for surgery [id number] Attention to ileostomy 11/06/2017 8 Malnutrition of mild degree 11/06/201705/14 History of rectal cancer 11/05/2017 020 Hypotension 08/06/2017 08/06/[address] 08/06/2017 04/03/2018 Hypokalemia 08/06/2017 08/06/2017 Post-op pain 08/06/2017 06/02/2020 Annual physical exam 05/29/2017 06/02/2020 Overview: Added automatically from request for surgery [id number] Obesity (BMI 30.0-34.9) 07/28/2014 06/02/20 20 Last [...] of this encounter (statuses as of 01/18/2022) [facility] of Past illness Narrative* Problem Noted Date Resolved Date Incisional hernia 06/26/2018 06/02/2020 Family history of colon cancer 05/15/2018 1 Overview: Added automatically from request for surgery [id number] Ventral hernia without obstruction or gangrene 0 04/17/2018 06/02/2020 Overview: Added automatically from request for surgery [id number] Attention to ileostomy 11/06/2017 8 Malnutrition of mild degree 11/06/201705/14 History of rectal cancer 11/05/2017 020 Hypotension 08/06/2017 08/06/[address] 08/06/2017 04/03/2018 Hypokalemia 08/06/2017 08/06/2017 Post-op pain 08/06/2017 06/02/2020 Annual physical exam 05/29/2017 06/02/2020 Overview: Added automatically from request for surgery [id number] Obesity (BMI 30.0-34.9) 07/28/2014 06/02/20 20 Last [...] of this encounter (statuses as of 01/20/2022) [facility] of Past illness Narrative* Problem Noted Date Resolved Date Incisional hernia 06/26/2018 06/02/2020 Family history of colon cancer 05/15/2018 1 Overview: Added automatically from request for surgery [id number] Ventral hernia without obstruction or gangrene 0 04/17/2018 06/02/2020 Overview: Added automatically from request for surgery [id number] Attention to ileostomy 11/06/2017 8 Malnutrition of mild degree 11/06/201705/14 History of rectal cancer 11/05/2017 020 Hypotension 08/06/2017 08/06/[address] 08/06/2017 04/03/2018 Hypokalemia 08/06/2017 08/06/2017 Post-op pain 08/06/2017 06/02/2020 Annual physical exam 05/29/2017 06/02/2020 Overview: Added automatically from request for surgery [id number] Obesity (BMI 30.0-34.9) 07/28/2014 06/02/20 20 Last [...] of this encounter (statuses as of 01/23/2022) [facility] of Past illness Narrative* Problem Noted Date Resolved Date Incisional hernia 06/26/2018 06/02/2020 Family history of colon cancer 05/15/2018 1 Overview: Added automatically from request for surgery [id number] Ventral hernia without obstruction or gangrene 0 04/17/2018 06/02/2020 Overview: Added automatically from request for surgery [id number] Attention to ileostomy 11/06/2017 8 Malnutrition of mild degree 11/06/201705/14 History of rectal cancer 11/05/2017 020 Hypotension 08/06/2017 08/06/[address] 08/06/2017 04/03/2018 Hypokalemia 08/06/2017 08/06/2017 Post-op pain 08/06/2017 06/02/2020 Annual physical exam 05/29/2017 06/02/2020 Overview: Added automatically from request for surgery [id number] Obesity (BMI 30.0-34.9) 07/28/2014 06/02/20 20 Last [...] of this encounter (statuses as of 02/02/2022) [facility] of Past illness Narrative* Problem Noted Date Resolved Date Incisional hernia 06/26/2018 06/02/2020 Family history of colon cancer 05/15/2018 1 Overview: Added automatically from request for surgery [id number] Ventral hernia without obstruction or gangrene 0 04/17/2018 06/02/2020 Overview: Added automatically from request for surgery [id number] Attention to ileostomy 11/06/2017 8 Malnutrition of mild degree 11/06/201705/14 History of rectal cancer 11/05/2017 020 Hypotension 08/06/2017 08/06/[address] 08/06/2017 04/03/2018 Hypokalemia 08/06/2017 08/06/2017 Post-op pain 08/06/2017 06/02/2020 Annual physical exam 05/29/2017 06/02/2020 Overview: Added automatically from request for surgery [id number] Obesity (BMI 30.0-34.9) 07/28/2014 06/02/20 20 Last [...] of this encounter (statuses as of 06/22/2022) [facility] of Past illness Narrative* Problem Noted Date Resolved Date Incisional hernia 06/26/2018 06/02/2020 Family history of colon cancer 05/15/2018 1 Overview: Added automatically from request for surgery [id number] Ventral hernia without obstruction or gangrene 0 04/17/2018 06/02/2020 Overview: Added automatically from request for surgery [id number] Attention to ileostomy 11/06/2017 8 Malnutrition of mild degree 11/06/201705/14 History of rectal cancer 11/05/2017 020 Hypotension 08/06/2017 08/06/[address] 08/06/2017 04/03/2018 Hypokalemia 08/06/2017 08/06/2017 Post-op pain 08/06/2017 06/02/2020 Annual physical exam 05/29/2017 06/02/2020 Overview: Added automatically from request for surgery [id number] Obesity (BMI 30.0-34.9) 07/28/2014 06/02/20 20 Last [...] of this encounter (statuses as of 06/22/2022) [facility] of [facility] illness Narrative* Problem Noted Date Resolved Date Incisional hernia 06/26/2018 06/02/2020 Family history of colon cancer 05/15/2018 1 Overview: Added automatically from request for surgery [id number] Ventral hernia without obstruction or gangrene 0 04/17/2018 06/02/2020 Overview: Added automatically from request for surgery [id number] Attention to ileostomy 11/06/2017 8 Malnutrition of mild degree 11/06/201705/14 History of rectal cancer 11/05/2017 020 Hypotension 08/06/2017 08/06/[address] 08/06/2017 04/03/2018 Hypokalemia 08/06/2017 08/06/2017 Post-op pain 08/06/2017 06/02/2020 Annual physical exam 05/29/2017 06/02/2020 Overview: Added automatically from request for surgery [id number] Obesity (BMI 30.0-34.9) 07/28/2014 06/02/20 20 Last [...] of this encounter (statuses as of 06/22/2022) [facility] of Past illness Narrative* Problem Noted Date Resolved Date Incisional hernia 06/26/2018 06/02/2020 Family history of colon cancer 05/15/2018 1 Overview: Added automatically from request for surgery [id number] Ventral hernia without obstruction or gangrene 0 04/17/2018 06/02/2020 Overview: Added automatically from request for surgery [id number] Attention to ileostomy 11/06/2017 8 Malnutrition of mild degree 11/06/201705/14 History of rectal cancer 11/05/2017 020 Hypotension 08/06/2017 08/06/[address] 08/06/2017 04/03/2018 Hypokalemia 08/06/2017 08/06/2017 Post-op pain 08/06/2017 06/02/2020 Annual physical exam 05/29/2017 06/02/2020 Overview: Added automatically from request for surgery [id number] Obesity (BMI 30.0-34.9) 07/28/2014 06/02/20 20 Last [...] of this encounter (statuses as of 06/23/2022) [facility] of [facility] Narrative* Problem Noted Date Resolved Date Incisional hernia 06/26/2018 06/02/2020 Family history of colon cancer 05/15/2018 1 Overview: Added automatically from request for surgery [id number] Ventral hernia without obstruction or gangrene 0 04/17/2018 06/02/2020 Overview: Added automatically from request for surgery [id number] Attention to ileostomy 11/06/2017 8 Malnutrition of mild degree 11/06/201705/14 History of rectal cancer 11/05/2017 020 Hypotension 08/06/2017 08/06/[address] 08/06/2017 04/03/2018 Hypokalemia 08/06/2017 08/06/2017 Post-op pain 08/06/2017 06/02/2020 Annual physical exam 05/29/2017 06/02/2020 Overview: Added automatically from request for surgery [id number] Obesity (BMI 30.0-34.9) 07/28/2014 06/02/20 20 Last [...] of this encounter (statuses as of 06/24/2022) [facility] of Past illness Narrative* Problem Noted Date Resolved Date Incisional hernia 06/26/2018 06/02/2020 Family history of colon cancer 05/15/2018 1 Overview: Added automatically from request for surgery [id number] Ventral hernia without obstruction or gangrene 0 04/17/2018 06/02/2020 Overview: Added automatically from request for surgery [id number] Attention to ileostomy 11/06/2017 8 Malnutrition of mild degree 11/06/201705/14 History of rectal cancer 11/05/2017 020 Hypotension 08/06/2017 08/06/[address] 08/06/2017 04/03/2018 Hypokalemia 08/06/2017 08/06/2017 Post-op pain 08/06/2017 06/02/2020 Annual physical exam 05/29/2017 06/02/2020 Overview: Added automatically from request for surgery [id number] Obesity (BMI 30.0-34.9) 07/28/2014 06/02/20 20 Last [...] of this encounter (statuses as of 06/26/2022) [facility] of Past illness Narrative* Problem Noted Date Resolved Date Incisional hernia 06/26/2018 06/02/2020 Family history of colon cancer 05/15/2018 1 Overview: Added automatically from request for surgery [id number] Ventral hernia without obstruction or gangrene 0 04/17/2018 06/02/2020 Overview: Added automatically from request for surgery [id number] Attention to ileostomy 11/06/2017 8 Malnutrition of mild degree 11/06/201705/14 History of rectal cancer 11/05/2017 020 Hypotension 08/06/2017 08/06/[address] 08/06/2017 04/03/2018 Hypokalemia 08/06/2017 08/06/2017 Post-op pain 08/06/2017 06/02/2020 Annual physical exam 05/29/2017 06/02/2020 Overview: Added automatically from request for surgery [id number] Obesity (BMI 30.0-34.9) 07/28/2014 06/02/20 20 Last [...] of this encounter (statuses as of 06/27/2022) [facility] of Past illness Narrative* Problem Noted Date Resolved Date Incisional hernia 06/26/2018 06/02/2020 Family history of colon cancer 05/15/2018 1 Overview: Added automatically from request for surgery [id number] Ventral hernia without obstruction or gangrene 0 04/17/2018 06/02/2020 Overview: Added automatically from request for surgery [id number] Attention to ileostomy 11/06/2017 8 Malnutrition of mild degree 11/06/201705/14 History of rectal cancer 11/05/2017 020 Hypotension 08/06/2017 08/06/[address] 08/06/2017 04/03/2018 Hypokalemia 08/06/2017 08/06/2017 Post-op pain 08/06/2017 06/02/2020 Annual physical exam 05/29/2017 06/02/2020 Overview: Added automatically from request for surgery [id number] Obesity (BMI 30.0-34.9) 07/28/2014 06/02/20 20 Last [...] of this encounter (statuses as of 06/27/2022) [facility] of Past illness Narrative* Problem Noted Date Resolved Date Incisional hernia 06/26/2018 06/02/2020 Family history of colon cancer 05/15/2018 1 Overview: Added automatically from request for surgery [id number] Ventral hernia without obstruction or gangrene 0 04/17/2018 06/02/2020 Overview: Added automatically from request for surgery [id number] Attention to ileostomy 11/06/2017 8 Malnutrition of mild degree 11/06/201705/14 History of rectal cancer 11/05/2017 020 Hypotension 08/06/2017 08/06/2017 Ileostomy in place 08/06/2017 04/03/2018 Hypokalemia 08/06/2017 08/06/2017 Post-op pain 08/06/2017 06/02/2020 Annual physical exam 05/29/2017 06/02/2020 Overview: Added automatically from request for surgery [id number] Obesity (BMI 30.0-34.9) 07/28/2014 06/02/20 20 Last [...] of this encounter (statuses as of 06/28/2022) [facility]-14[facility] History of Past illness Narrative* Problem Noted Date Resolved Date Incisional hernia 06/26/2018 06/02/2020 Family history of colon cancer 05/15/2018 Overview: Added automatically from request for surgery [id number] Ventral hernia without obstruction or gangrene 0 04/17/2018 06/02/2020 Overview: Added automatically from request for surgery [id number] Attention to ileostomy 11/06/2017 8 Malnutrition of mild degree 11/06/201705/14 History of rectal cancer 11/05/2017 020 Hypotension 08/06/2017 08/06/[address] 08/06/2017 04/03/2018 Hypokalemia 08/06/2017 08/06/2017 Post-op pain 08/06/2017 06/02/2020 Annual physical exam 05/29/2017 06/02/2020 Overview: Added automatically from request for surgery [id number] Obesity (BMI 30.0-34.9) 07/28/2014 06/02/20 20 Last [...] of this encounter (statuses as of 06/29/2022) [facility] History of Past illness Narrative* Problem Noted Date Resolved Date Incisional hernia 06/26/2018 06/02/2020 Family history of colon cancer 05/15/2018 1 Overview: Added automatically from request for surgery [id number] Ventral hernia without obstruction or gangrene 0 04/17/2018 06/02/2020 Overview: Added automatically from request for surgery [id number] Attention to ileostomy 11/06/2017 8 Malnutrition of mild degree 11/06/201705/14 History of rectal cancer 11/05/2017 020 Hypotension 08/06/2017 08/06/[address] 08/06/2017 04/03/2018 Hypokalemia 08/06/2017 08/06/2017 Post-op pain 08/06/2017 06/02/2020 Annual physical exam 05/29/2017 06/02/2020 Overview: Added automatically from request for surgery [id number] Obesity (BMI 30.0-34.9) 07/28/2014 06/02/20 20 Last [...] of this encounter (statuses as of 07/12/2022) [facility] History of Past illness Narrative* Problem Noted Date Resolved Date Incisional hernia 06/26/2018 06/02/2020 Family history of colon cancer 05/15/2018 1 Overview: Added automatically from request for surgery [id number] Ventral hernia without obstruction or gangrene 0 04/17/2018 06/02/2020 Overview: Added automatically from request for surgery [id number] Attention to ileostomy 11/06/2017 8 Malnutrition of mild degree 11/06/201705/14 History of rectal cancer 11/05/2017 020 Hypotension 08/06/2017 08/06/[address] 08/06/2017 04/03/2018 Hypokalemia 08/06/2017 08/06/2017 Post-op pain 08/06/2017 06/02/2020 Annual physical exam 05/29/2017 06/02/2020 Overview: Added automatically from request for surgery [id number] Obesity (BMI 30.0-34.9) 07/28/2014 06/02/20 20 Last [...] of this encounter (statuses as of 07/13/2022) [facility] History of Past illness Narrative* Problem Noted Date Resolved Date Incisional hernia 06/26/2018 06/02/2020 Family history of colon cancer 05/15/2018 1 Overview: Added automatically from request for surgery [id number] Ventral hernia without obstruction or gangrene 0 04/17/2018 06/02/2020 Overview: Added automatically from request for surgery [id number] Attention to ileostomy 11/06/2017 8 Malnutrition of mild degree 11/06/201705/14 History of rectal cancer 11/05/2017 020 Hypotension 08/06/2017 08/06/[address] 08/06/2017 04/03/2018 Hypokalemia 08/06/2017 08/06/2017 Post-op pain 08/06/2017 06/02/2020 Annual physical exam 05/29/2017 06/02/2020 Overview: Added automatically from request for surgery [id number] Obesity (BMI 30.0-34.9) 07/28/2014 06/02/20 Last Assessment [...] of this encounter (statuses as of 08/22/2022) [facility] History of Past illness Narrative* Problem Noted Date Resolved Date Incisional hernia 06/26/2018 06/02/2020 Family history of colon cancer 05/15/2018 1 Overview: Added automatically from request for surgery [id number] Ventral hernia without obstruction or gangrene 0 04/17/2018 06/02/2020 Overview: Added automatically from request for surgery [id number] Attention to ileostomy 11/06/2017 8 Malnutrition of mild degree 11/06/201705/14 History of rectal cancer 11/05/2017 020 Hypotension 08/06/2017 08/06/[address] 08/06/2017 04/03/2018 Hypokalemia 08/06/2017 08/06/2017 Post-op pain 08/06/2017 06/02/2020 Annual physical exam 05/29/2017 06/02/2020 Overview: Added automatically from request for surgery [id number] Obesity (BMI 30.0-34.9) 07/28/2014 06/02/20 20 Last [...] of this encounter (statuses as of 12/13/2022) [facility] History of Past illness Narrative* Problem Noted Date Resolved Date Incisional hernia 06/26/2018 06/02/2020 Family history of colon cancer 05/15/2018 1 Overview: Added automatically from request for surgery [id number] Ventral hernia without obstruction or gangrene 0 04/17/2018 06/02/2020 Overview: Added automatically from request for surgery [id number] Attention to ileostomy 11/06/2017 8 Malnutrition of mild degree 11/06/201705/14 History of rectal cancer 11/05/2017 020 Hypotension 08/06/2017 08/06/[address] 08/06/2017 04/03/2018 Hypokalemia 08/06/2017 08/06/2017 Post-op pain 08/06/2017 06/02/2020 Annual physical exam 05/29/2017 06/02/2020 Overview: Added automatically from request for surgery [id number] Obesity (BMI 30.0-34.9) 07/28/2014 06/02/20 20 Last [...] of this encounter (statuses as of 12/15/2022) [facility] History of Past illness Narrative* Problem Noted Date Resolved Date Incisional hernia 06/26/2018 06/02/2020 Family history of colon cancer 05/15/2018 1 Overview: Added automatically from request for surgery [id number] Ventral hernia without obstruction or gangrene 0 04/17/2018 06/02/2020 Overview: Added automatically from request for surgery [id number] Attention to ileostomy 11/06/2017 8 Malnutrition of mild degree 11/06/201705/14 History of rectal cancer 11/05/2017 020 Hypotension 08/06/2017 08/06/[address] 08/06/2017 04/03/2018 Hypokalemia 08/06/2017 08/06/2017 Post-op pain 08/06/2017 06/02/2020 Annual physical exam 05/29/2017 06/02/2020 Overview: Added automatically from request for surgery [id number] Obesity (BMI 30.0-34.9) 07/28/2014 06/02/20 20 Last [...] of this encounter (statuses as of 01/16/2023) [facility] History of Past illness Narrative* Problem Noted Date Diagnosed Date Resolved Date Incisional hernia 06/26/2018 06/02/2020 Family history of colon cancer 05/15/2018 06/02/2020 Overview: Added automatically from request for surgery [id number] Ventral hernia without obstr uction or gangrene 04/17/2018 06/02/2020 Overview: Added automatically from request for surgery [id number] Attention to ileostomy 11/06/201704/03 Malnutrition of mild degree 11/06/2017 06/02/2020 History of rectal cancer 11/05/2017 Hypotension 08/06/2017 08/06/[address] 08/06/2017 8 Hypokalemia 08/06/2017 08/06/2017 Post-op pain 08/06/2017 06/02/2020 Annual physical exam 05/29/2017 020 Overview: Added automatically from request for surgery [id number] Obesity (BMI 30.0-34.9) 07/28/201405/14 Last Assessment & [...] of this encounter (statuses as of 05/05/2023) [facility] History of Past illness Narrative* Problem Noted Date Diagnosed Date Resolved Date Incisional hernia 06/26/2018 06/02/2020 Family history of colon cancer 05/15/2018 06/02/2020 Overview: Added automatically from request for surgery [id number] Ventral hernia without obstr uction or gangrene 04/17/2018 06/02/2020 Overview: Added automatically from request for surgery [id number] Attention to ileostomy 11/06/201704/03 Malnutrition of mild degree 11/06/2017 06/02/2020 History of rectal cancer 11/05/2017 Hypotension 08/06/2017 08/06/[address] 08/06/2017 8 Hypokalemia 08/06/2017 08/06/2017 Post-op pain 08/06/2017 06/02/2020 Annual physical exam 05/29/2017 020 Overview: Added automatically from request for surgery [id number] Obesity (BMI 30.0-34.9) 07/28/201405/14 Last Assessment & [...] of this encounter (statuses as of 05/29/2023) [facility] History of Past illness Narrative* Problem Noted Date Diagnosed Date Resolved Date Incisional hernia 06/26/2018 06/02/2020 Family history of colon cancer 05/15/2018 06/02/2020 Overview: Added automatically from request for surgery [id number] Ventral hernia without obstr uction or gangrene 04/17/2018 06/02/2020 Overview: Added automatically from request for surgery [id number] Attention to ileostomy 11/06/201704/03 Malnutrition of mild degree 11/06/2017 06/02/2020 History of rectal cancer 11/05/2017 Hypotension 08/06/2017 08/06/[address] 08/06/2017 8 Hypokalemia 08/06/2017 08/06/2017 Post-op pain 08/06/2017 06/02/2020 Annual physical exam 05/29/2017 020 Overview: Added automatically from request for surgery [id number] Obesity (BMI 30.0-34.9) 07/28/201405/14 Last Assessment & [...] of this encounter (statuses as of 06/01/2023) [facility] History of Past illness Narrative* Problem Noted Date Diagnosed Date Resolved Date Incisional hernia 06/26/2018 06/02/2020 Family history of colon cancer 05/15/2018 06/02/2020 Overview: Added automatically from request for surgery [id number] Ventral hernia without obstr uction or gangrene 04/17/2018 06/02/2020 Overview: Added automatically from request for surgery [id number] Attention to ileostomy 11/06/201704/03 Malnutrition of mild degree 11/06/2017 06/02/2020 History of rectal cancer 11/05/2017 Hypotension 08/06/2017 08/06/[address] 08/06/2017 8 Hypokalemia 08/06/2017 08/06/2017 Post-op pain 08/06/2017 06/02/2020 Annual physical exam 05/29/2017 020 Overview: Added automatically from request for surgery [id number] Obesity (BMI 30.0-34.9) 07/28/201405/14 Last Assessment & [...] of this encounter (statuses as of 06/17/2023) [facility] History of Past illness Narrative* Problem Noted Date Diagnosed Date Resolved Date Incisional hernia 06/26/2018 06/02/2020 Family history of colon cancer 05/15/2018 06/02/2020 Overview: Added automatically from request for surgery [id number] Ventral hernia without obstr uction or gangrene 04/17/2018 06/02/2020 Overview: Added automatically from request for surgery [id number] Attention to ileostomy 11/06/201704/03 Malnutrition of mild degree 11/06/2017 06/02/2020 History of rectal cancer 11/05/2017 Hypotension 08/06/2017 08/06/[address] 08/06/2017 8 Hypokalemia 08/06/2017 08/06/2017 Post-op pain 08/06/2017 06/02/2020 Annual physical exam 05/29/2017 020 Overview: Added automatically from request for surgery [id number] Obesity (BMI 30.0-34.9) 07/28/201405/14 Last Assessment & [...] of this encounter (statuses as of 06/21/2023) [facility] History of Past illness Narrative* Problem Noted Date Diagnosed Date Resolved Date Incisional hernia 06/26/2018 06/02/2020 Family history of colon cancer 05/15/2018 06/02/2020 Overview: Added automatically from request for surgery [id number] Ventral hernia without obstr uction or gangrene 04/17/2018 06/02/2020 Overview: Added automatically from request for surgery [id number] Attention to ileostomy 11/06/201704/03 Malnutrition of mild degree 11/06/2017 06/02/2020 History of rectal cancer 11/05/2017 Hypotension 08/06/2017 08/06/[address] 08/06/2017 8 Hypokalemia 08/06/2017 08/06/2017 Post-op pain 08/06/2017 06/02/2020 Annual physical exam 05/29/2017 020 Overview: Added automatically from request for surgery [id number] Obesity (BMI 30.0-34.9) 07/28/201405/14 Last Assessment & [...] of this encounter (statuses as of 06/27/2023) [facility] History of Past illness Narrative* Problem Noted Date Diagnosed Date Resolved Date Incisional hernia 06/26/2018 06/02/2020 Family history of colon cancer 05/15/2018 06/02/2020 Overview: Added automatically from request for surgery [id number] Ventral hernia without obstr uction or gangrene 04/17/2018 06/02/2020 Overview: Added automatically from request for surgery [id number] Attention to ileostomy 11/06/201704/03 Malnutrition of mild degree 11/06/2017 06/02/2020 Hypotension 08/06/2017 08/06/[address] 08/06/2017 8 Hypokalemia 08/06/2017 08/06/2017 Post-op pain 08/06/2017 06/02/2020 Annual physical exam 05/29/2017 020 Overview: Added automatically from request for surgery [id number] Obesity (BMI 30.0-34.9) 07/28/201405/14 Last Assessment & [...] of this encounter (statuses as of 09/18/2023) [facility] History of Past illness Narrative* Problem Noted Date Diagnosed Date Resolved Date Incisional hernia 06/26/2018 06/02/2020 Family history of colon cancer 05/15/2018 06/02/2020 Overview: Added automatically from request for surgery [id number] Ventral hernia without obstr uction or gangrene 04/17/2018 06/02/2020 Overview: Added automatically from request for surgery [id number] Attention to ileostomy 11/06/201704/03 Malnutrition of mild degree 11/06/2017 06/02/2020 Hypotension 08/06/2017 08/06/[address] 08/06/2017 8 Hypokalemia 08/06/2017 08/06/2017 Post-op pain 08/06/2017 06/02/2020 Annual physical exam 05/29/2017 020 Overview: Added automatically from request for surgery [id number] Obesity (BMI 30.0-34.9) 07/28/201405/14 Last Assessment & [...] of this encounter (statuses as of 10/02/2023) [facility] History of Past illness Narrative* Problem Noted Date Diagnosed Date Resolved Date Incisional hernia 06/26/2018 06/02/2020 Family history of colon cancer 05/15/2018 06/02/2020 Overview: Added automatically from request for surgery [id number] Ventral hernia without obstr uction or gangrene 04/17/2018 06/02/2020 Overview: Added automatically from request for surgery [id number] Attention to ileostomy 11/06/201704/03 Malnutrition of mild degree 11/06/2017 06/02/2020 Hypotension 08/06/2017 08/06/[address] 08/06/2017 8 Hypokalemia 08/06/2017 08/06/2017 Post-op pain 08/06/2017 06/02/2020 Annual physical exam 05/29/2017 020 Overview: Added automatically from request for surgery [id number] Obesity (BMI 30.0-34.9) 07/28/201405/14 Last Assessment & [...] of this encounter (statuses as of 10/02/2023) [facility] History of Past illness Narrative* Problem Noted Date Diagnosed Date Resolved Date Incisional hernia 06/26/2018 06/02/2020 Family history of colon cancer 05/15/2018 06/02/2020 Overview: Added automatically from request for surgery [id number] Ventral hernia without obstr uction or gangrene 04/17/2018 06/02/2020 Overview: Added automatically from request for surgery [id number] Attention to ileostomy 11/06/201704/03 Malnutrition of mild degree 11/06/2017 06/02/2020 Hypotension 08/06/2017 08/06/[address] 08/06/2017 8 Hypokalemia 08/06/2017 08/06/2017 Post-op pain 08/06/2017 06/02/2020 Annual physical exam 05/29/2017 020 Overview: Added automatically from request for surgery [id number] Obesity (BMI 30.0-34.9) 07/28/201405/14 Last Assessment & [...] of this encounter (statuses as of 10/02/2023) [facility] History of Past illness Narrative* Problem Noted Date Diagnosed Date Resolved Date Incisional hernia 06/26/2018 06/02/2020 Family history of colon cancer 05/15/2018 06/02/2020 Overview: Added automatically from request for surgery [id number] Ventral hernia without obstr uction or gangrene 04/17/2018 06/02/2020 Overview: Added automatically from request for surgery [id number] Attention to ileostomy 11/06/201704/03 Malnutrition of mild degree 11/06/2017 06/02/2020 Hypotension 08/06/2017 08/06/[address] 08/06/2017 8 Hypokalemia 08/06/2017 08/06/2017 Post-op pain 08/06/2017 06/02/2020 Annual physical exam 05/29/2017 020 Overview: Added automatically from request for surgery [id number] Obesity (BMI 30.0-34.9) 07/28/201405/14 Last Assessment & [...] of this encounter (statuses as of 11/27/2023) [facility] Ot[facility] both ears- Primary Otalgia, unspecified Dysfunction of Eustachian tube, unspecified laterality Type 2 diabetes mellitus without complication, without long-term current use of insulin (HCC) [facility] Cough- Primary Bronchitis Bronchitis, not specified as acute or chronic [facility] Diagnosis Gross hematuria- Primary Mixed hyperlipidemia 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 Calculus of other lower urinary tract location Type 2 diabetes mellitus without complication, without long-term current use of insulin (HCC) Chronic bilateral back pain, unspecified back location [facility] Diagnosis Kidney stones- Primary Calculus of kidney Ureteric stone Calculus of ureter [facility] Diagnosis Nephrolithiasis- Primary Calculus of kidney Nephrolithiasis Calculus of kidney [facility] Diagnosis Kidney stones- Primary Calculus of kidney [facility] Diagnosis Hypothyroidism, unspecified type [facility] Diagnosis Acute bilateral low back pain without sciatica- Primary Type 2 diabetes mellitus without complication, without long-term current use of insulin (HCC) 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 Mixed hyperlipidemia [facility] Diagnosis Type 2 diabetes mellitus without complication, without long-term current use of insulin (HCC)- Primary Burning sensation of feet Disturbance of skin sensation Primary hypertension Unspecified essential hypertension 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 Mixed hyperlipidemia [facility] Diagnosis Burning sensation of feet- Primary Disturbance of skin sensation Bilateral foot pain Pain in limb [facility] Gross hematuria Calculus of other lower urinary tract location [facility] Diagnosis Need for vaccination- Primary Need for prophylactic vaccination and inoculation against unspecified single disease [facility] Diagnosis Gross hematuria- Primary History of kidney stones Personal history of urinary calculi [facility] Diagnosis Gross hematuria [facility] Diagnosis Kidney stones- Primary Calculus of kidney Abnormal urinalysis Other nonspecific finding on examination of urine [facility] Diagnosis Hypothyroidism, unspecified type History of kidney stones Personal history of urinary calculi Vitamin D deficiency Unspecified vitamin D deficiency [facility] Diagnosis Medication management Encounter for long-term (current) use of other medications Type 2 diabetes mellitus without complication, without long-term current use of insulin (HCC) [facility] Diagnosis Annual physical exam- Primary Routine [...] Other seborrheic keratosis [facility] Diagnosis Pain of left calf- Primary Pain in limb Edema of left lower extremity Edema documented in this encounter [facility]* Diagnosis Diabetes (HCC)- Primary Type [...] Obesity, unspecified Cough [facility] Diagnosis Diabetes (HCC)- Primary Type II [...] vitamin D deficiency [facility] Diagnosis Diabetes (HCC)- Primary Type II [...] insulin (HCC)- Primary 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 BMI 39.0-39.9,adult Body Mass Index 39.0-39.9, adult Vitamin B12 deficiency Other B-complex deficiencies [facility] Diagnosis Diabetes (HCC)- Primary Type II [...] Procedures Referred By Yao hudson Referred To [facility] Diagnoses Cough Bronchitis Procedures METHACHOLINE CHALLENGE INHLJ BRNCL CHALLENGE TSTG W/HISTAM/METHACHOL Bettye Powell MD [facility] [place] [address] [address] Referral ID Status Reason Start Date Expiration Date Visits Requested Visits Authorized [id number] Pending Review Auto-Generat ed Referral 01/20/2022 02/19/2023 1 1 * Outpatient Procedure (Routine) - Pending Review Specialty Diagnoses / Procedures Referred By Yao hudson Referred To [facility] Diagnoses Cough Procedures SPIROMETRY - BASELINE AND POST DILATOR BRNCDILAT RSPSE SPMTRY PRE&POST-BRNCDILAT ADMN Bettye Powell MD [facility] [place] [address] [address] Referral ID Status Reason Start Date Expiration Date Visits Requested Visits Authorized [id number] Pending Review Auto-Generat ed Referral 01/20/2022 02/19/2023 1 1 * Outpatient Procedure (Routine) - Pending Review Specialty Diagnoses / Procedures Referred By Contac t Referred To [facility] Diagnoses Cough Procedures LUNG VOLUMES Bettye Powell MD [address] [place] [address] [facility] [address] [place] [id number] Referral ID Status Reason Start Date Expiration Date Visits Requested Visits Authorized [id number] Pending Review Auto-Generat ed Referral 01/20/2022 02/19/[address] [facility] Procedure (Urgent) - Closed Specialty Diagnoses / Procedures Referred By Contac t Ref[facility] Diagnoses Pain of left calf Edema of left lower extremity Procedures US LEG VEIN DVT UNL VAS LAB DUP-SCAN XTR VEINS UNILATERAL/LIMITED STUDY Lizeth Bradford, [employer] [address] [place] [address] [facility] [address] [place] [id number] Referral ID Status Reason Start Date Expiration Date V isits Requested Visits Authorized [id number] Closed Auto-Generate d Referral 03/19/2024 03/19/[address] [facility] Advance Directives No Advanced Directives Records FoundDocuments on File Type Date Recorded Patient Press Set Up Expl anation Advance Directive(s) 07/02/2020 7:49 AM Advance Directive(s) 06/24/2020 3:27 PM Advance Directive(s) 06/26/2019 6:46 AM Advance Directive(s) 06/24/2018 1:40 PM Advance Directive(s) 05/29/2018 7:31 AM Advance Directive(s) 10/26/2017 1:16 PM Advance Directive(s) 07/25/2017 9:49 AM Advance Directive(s) 07/23/2017 2:35 PM Advance Directive(s) 07/20/2017 2:40 PM Advance Directive(s) 06/13/2017 9:02 AM Documents on File Type Date Recorded Patient Press Set Up Expl anation Advance Directive(s) 07/02/2020 7:49 AM Advance Directive(s) 06/24/2020 3:27 PM Advance Directive(s) 06/26/2019 6:46 AM Advance Directive(s) 06/24/2018 1:40 PM Advance Directive(s) 05/29/2018 7:31 AM Advance Directive(s) 10/26/2017 1:16 PM Advance Directive(s) 07/25/2017 9:49 AM Advance Directive(s) 07/23/2017 2:35 PM Advance Directive(s) 07/20/2017 2:40 PM Advance Directive(s) 06/13/2017 9:02 AM Documents on File Type Date Recorded Patient Press Set Up Expl anation Advance Directive(s) 07/25/2017 9:49 AM Documents on File Type Date Recorded Patient Press Set Up Expl anation Advance Directive(s) 07/25/2017 9:49 AM Reason for Referral Specialty Diagnoses / Procedures Referred By Contac t Referred To Contact [facility] Diagnoses Gross hematuria Calculus of other lower urinary tract location Procedures CT FLANK WO IVCON CT ABD & PELVIS W/O CONTRAST Bettye Powell MD [address] [place] [address] Ct Imaging Referral ID Status Reason Start Date Expiration Date Visits Requested Visits Authorized [id number] Pending Review Auto-Generat ed Referral 2 07/22/2023 1 1 Specialty Diagnoses / Procedures Referred By Contac t Referred To Contact Urology Diagnoses Gross hematuria Calculus of other lower urinary tract location Procedures CONSULT TO UROLOGY OFFICE/OUTPATIENT [facility] 60-74 MINUTES Bettye Powell MD [address] [place] [address] Referral ID Status Reason Start Date Expiration Date Visits Requested Visits Authorized [id number] Authorized PCP Requested Referral 2 06/22/2023 1 1 Specialty Diagnoses / Procedures Referred By Contac t Referred To Contact Diagnoses Nephrolithiasis Procedures REFER TO PACC - PRE ANESTHESIA CONSULTATION CLINIC OFFICE/OUTPATIENT [facility] MDM 60-[place] [address] [place] [id number] Referral ID Status Reason Start Date Expiration Date Visits Requested Visits Authorized [id number] Authorized PCP Requested Referral 2 06/27/2023 1 1 Specialty Diagnoses / Procedures Referred By Contac t Referred To Contact CT IMAGING Diagnoses Gross hematuria Calculus of other lower urinary tract location Procedures CT FLANK WO IVCON CT ABD & PELVIS W/O CONTRAST Bettye Powell MD [address] [place] [address] Ct Imaging [facility] Referral ID Status Reason Start Date Expiration Date V isits Requested Visits Authorized [id number] Closed Auto-Generate d Referral 06/23/2022 07/22/2022 1 1 Specialty Diagnoses / Procedures Referred By Contac t Referred To Contact CT IMAGING Diagnoses Gross hematuria Procedures CT UROGRAM WO/W IVCON CT ABD & PELVIS W/WO CONTRST 1+ BODY Everette Whitney, HANNY.ALANIS, ROSALIND [address] [place] [address] Ct Imaging [place] [address] Referral ID Status Reason Start Date Expiration Date Visits Requested Visits Authorized [id number] Authorized Auto-Generat ed Referral 09/24/2023 10/16/2024 1 1 Referral ID Status Reason Start Date Expiration Date V isits Requested Visits Authorized [id number] Closed Auto-Generate d Referral 09/24/2023 10/16/2024 1 [...] or prosecute any alcohol or drug abuse patient.[facility] the event this information is protected by the Federal Confidentiality of Alcohol and Drug Abuse Patient Records regulations: The Federal rules restrict any use of the information to criminally investigate or prosecute any alcohol or drug abuse patient.[facility] HospitalIn the event this information is protected by the Federal Confidentiality of Alcohol and Drug Abuse Patient Records regulations: The Federal rules restrict any use of the information to criminally investigate or prosecute any alcohol or drug abuse patient.[facility]In the event this information is protected by the Federal Confidentiality of Alcohol and Drug Abuse Patient Records regulations: The Federal rules restrict any use of the information to criminally investigate or prosecute any alcohol or drug abuse patient.[facility] HospitalIn the event this information is protected by the Federal Confidentiality of Alcohol and Drug Abuse Patient Records regulations: The Federal rules restrict any use of the information to criminally investigate or prosecute any alcohol or drug abuse patient.[facility] HospitalIn the event this information is protected by the Federal Confidentiality of Alcohol and Drug Abuse Patient Records regulations: The Federal rules restrict any use of the information to criminally investigate or prosecute any alcohol or drug abuse patient.[facility] HospitalIn the event this information is protected by the Federal Confidentiality of Alcohol and Drug Abuse Patient Records regulations: The Federal rules restrict any use of the information to criminally investigate or prosecute any alcohol or drug abuse patient.[facility] HospitalIn the event this information is protected by the Federal Confidentiality of Alcohol and Drug Abuse Patient Records regulations: The Federal rules restrict any use of the information to criminally investigate or prosecute any alcohol or drug abuse patient.[facility] HospitalIn the event this information is protected by the Federal Confidentiality of Alcohol and Drug Abuse Patient Records regulations: The Federal rules restrict any use of the information to criminally investigate or prosecute any alcohol or drug abuse patient.[facility] HospitalIn the event this information is protected by the Federal Confidentiality of Alcohol and Drug Abuse Patient Records regulations: The Federal rules restrict any use of the information to criminally investigate or prosecute any alcohol or drug abuse patient.[facility] HospitalIn the event this information is protected by the Federal Confidentiality of Alcohol and Drug Abuse Patient Records regulations: The Federal rules restrict any use of the information to criminally investigate or prosecute any alcohol or drug abuse patient.[facility] HospitalIn the event this information is protected by the Federal Confidentiality of Alcohol and Drug Abuse Patient Records regulations: The Federal rules restrict any use of the information to criminally investigate or prosecute any alcohol or drug abuse patient.[facility] HospitalIn the event this information is protected by the Federal Confidentiality of Alcohol and Drug Abuse Patient Records regulations: The Federal rules restrict any use of the information to criminally investigate or prosecute any alcohol or drug abuse patient.[facility] HospitalIn the event this information is protected by the Federal Confidentiality of Alcohol and Drug Abuse Patient Records regulations: The Federal rules restrict any use of the information to criminally investigate or prosecute any alcohol or drug abuse patient.[facility] HospitalIn the event this information is protected by the Federal Confidentiality of Alcohol and Drug Abuse Patient Records regulations: The Federal rules restrict any use of the information to criminally investigate or prosecute any alcohol or drug abuse patient.[facility] HospitalIn the event this information is protected by the Federal Confidentiality of Alcohol and Drug Abuse Patient Records regulations: The Federal rules restrict any use of the information to criminally investigate or prosecute any alcohol or drug abuse patient.[facility] HospitalIn the event this information is protected by the Federal Confidentiality of Alcohol and Drug Abuse Patient Records regulations: The Federal rules restrict any use of the information to criminally investigate or prosecute any alcohol or drug abuse patient.[facility] HospitalIn the event this information is protected by the Federal Confidentiality of Alcohol and Drug Abuse Patient Records regulations: The Federal rules restrict any use of the information to criminally investigate or prosecute any alcohol or drug abuse patient.[facility] HospitalIn the event this information is protected by the Federal Confidentiality of Alcohol and Drug Abuse Patient Records regulations: The Federal rules restrict any use of the information to criminally investigate or prosecute any alcohol or drug abuse patient.[facility] HospitalIn the event this information is protected by the Federal Confidentiality of Alcohol and Drug Abuse Patient Records regulations: The Federal rules restrict any use of the information to criminally investigate or prosecute any alcohol or drug abuse patient.[facility] HospitalIn the event this information is protected by the Federal Confidentiality of Alcohol and Drug Abuse Patient Records regulations: The Federal rules restrict any use of the information to criminally investigate or prosecute any alcohol or drug abuse patient.[facility] HospitalIn the event this information is protected by the Federal Confidentiality of Alcohol and Drug Abuse Patient Records regulations: The Federal rules restrict any use of the information to criminally investigate or prosecute any alcohol or drug abuse patient.[facility] HospitalIn the event this information is protected by the Federal Confidentiality of Alcohol and Drug Abuse Patient Records regulations: The Federal rules restrict any use of the information to criminally investigate or prosecute any alcohol or drug abuse patient.[facility] HospitalIn the event this information is protected by the Federal Confidentiality of Alcohol and Drug Abuse Patient Records regulations: The Federal rules restrict any use of the information to criminally investigate or prosecute any alcohol or drug abuse patient.[facility] HospitalIn the event this information is protected by the Federal Confidentiality of Alcohol and Drug Abuse Patient Records regulations: The Federal rules restrict any use of the information to criminally investigate or prosecute any alcohol or drug abuse patient.[facility] HospitalIn the event this information is protected by the Federal Confidentiality of Alcohol and Drug Abuse Patient Records regulations: The Federal rules restrict any use of the information to criminally investigate or prosecute any alcohol or drug abuse patient.[facility] HospitalIn the event this information is protected by the Federal Confidentiality of Alcohol and Drug Abuse Patient Records regulations: The Federal rules restrict any use of the information to criminally investigate or prosecute any alcohol or drug abuse patient.[facility] HospitalIn the event this information is protected by the Federal Confidentiality of Alcohol and Drug Abuse Patient Records regulations: The Federal rules restrict any use of the information to criminally investigate or prosecute any alcohol or drug abuse patient.[facility] HospitalIn the event this information is protected by the Federal Confidentiality of Alcohol and Drug Abuse Patient Records regulations: The Federal rules restrict any use of the information to criminally investigate or prosecute any alcohol or drug abuse patient.[facility] HospitalIn the event this information is protected by the Federal Confidentiality of Alcohol and Drug Abuse Patient Records regulations: The Federal rules restrict any use of the information to criminally investigate or prosecute any alcohol or drug abuse patient.[facility] HospitalIn the event this information is protected by the Federal Confidentiality of Alcohol and Drug Abuse Patient Records regulations: The Federal rules restrict any use of the information to criminally investigate or prosecute any alcohol or drug abuse patient.[facility] HospitalIn the event this information is protected by the Federal Confidentiality of Alcohol and Drug Abuse Patient Records regulations: The Federal rules restrict any use of the information to criminally investigate or prosecute any alcohol or drug abuse patient.[facility] HospitalIn the event this information is protected by the Federal Confidentiality of Alcohol and Drug Abuse Patient Records regulations: The Federal rules restrict any use of the information to criminally investigate or prosecute any alcohol or drug abuse patient.[facility] HospitalIn the event this information is protected by the Federal Confidentiality of Alcohol and Drug Abuse Patient Records regulations: The Federal rules restrict any use of the information to criminally investigate or prosecute any alcohol or drug abuse patient.[facility] HospitalIn the event this information is protected by the Federal Confidentiality of Alcohol and Drug Abuse Patient Records regulations: The Federal rules restrict any use of the information to criminally investigate or prosecute any alcohol or drug abuse patient.[facility] HospitalIn the event this information is protected by the Federal Confidentiality of Alcohol and Drug Abuse Patient Records regulations: The Federal rules restrict any use of the information to criminally investigate or prosecute any alcohol or drug abuse patient.[facility] HospitalIn the event this information is protected by the Federal Confidentiality of Alcohol and Drug Abuse Patient Records regulations: The Federal rules restrict any use of the information to criminally investigate or prosecute any alcohol or drug abuse patient.[facility] HospitalIn the event this information is protected by the Federal Confidentiality of Alcohol and Drug Abuse Patient Records regulations: The Federal rules restrict any use of the information to criminally investigate or prosecute any alcohol or drug abuse patient.[facility] HospitalIn the event this information is protected by the Federal Confidentiality of Alcohol and Drug Abuse Patient Records regulations: The Federal rules restrict any use of the information to criminally investigate or prosecute any alcohol or drug abuse patient.[facility] HospitalIn the event this information is protected by the Federal Confidentiality of Alcohol and Drug Abuse Patient Records regulations: The Federal rules restrict any use of the information to criminally investigate or prosecute any alcohol or drug abuse patient.[facility] HospitalIn the event this information is protected by the Federal Confidentiality of Alcohol and Drug Abuse Patient Records regulations: The Federal rules restrict any use of the information to criminally investigate or prosecute any alcohol or drug abuse patient.[facility] HospitalIn the event this information is protected by the Federal Confidentiality of Alcohol and Drug Abuse Patient Records regulations: The Federal rules restrict any use of the information to criminally investigate or prosecute any alcohol or drug abuse patient.[facility] HospitalIn the event this information is protected by the Federal Confidentiality of Alcohol and Drug Abuse Patient Records regulations: The Federal rules restrict any use of the information to criminally investigate or prosecute any alcohol or drug abuse patient.[facility] HospitalIn the event this information is protected by the Federal Confidentiality of Alcohol and Drug Abuse Patient Records regulations: The Federal rules restrict any use of the information to criminally investigate or prosecute any alcohol or drug abuse patient.[facility] HospitalIn the event this information is protected by the Federal Confidentiality of Alcohol and Drug Abuse Patient Records regulations: The Federal rules restrict any use of the information to criminally investigate or prosecute any alcohol or drug abuse patient.[facility] HospitalIn the event this information is protected by the Federal Confidentiality of Alcohol and Drug Abuse Patient Records regulations: The Federal rules restrict any use of the information to criminally investigate or prosecute any alcohol or drug abuse patient.[facility] HospitalIn the event this information is protected by the Federal Confidentiality of Alcohol and Drug Abuse Patient Records regulations: The Federal rules restrict any use of the information to criminally investigate or prosecute any alcohol or drug abuse patient.[facility] HospitalIn the event this information is protected by the Federal Confidentiality of Alcohol and Drug Abuse Patient Records regulations: The Federal rules restrict any use of the information to criminally investigate or prosecute any alcohol or drug abuse patient.[facility] HospitalIn the event this information is protected by the Federal Confidentiality of Alcohol and Drug Abuse Patient Records regulations: The Federal rules restrict any use of the information to criminally investigate or prosecute any alcohol or drug abuse patient.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 - Other Reason Comments Information Reason Onset [...] CT Specialty Diagnoses / Procedures Referred By Yao t Referred To Contact CT IMAGING Diagnoses Gross hematuria Calculus of other lower urinary tract location Procedures CT FLANK WO IVCON CT ABD & PELVIS W/O CONTRAST Bettye Powell MD [address] [place] [address] [place] [address] Referral ID Status Reason Start Date Expiration Date V isits Requested Visits Authorized [id number] Closed Auto-Generate d Referral 06/23/2022 07/22/2022 1 1 Reason Comments Diarrhea Reason Comments vaccine question Reason Comments Kidney Stones Specialty Diagnoses / Procedures Referred By Yao hudson Referred To Contact CT IMAGING Diagnoses Gross hematuria Procedures CT UROGRAM WO/W IVCON CT ABD & PELVIS W/WO CONTRST 1+ BODY Everette Whitney, [employer]ER WELT, DNP [address] [place] [address] [place] [address] Referral ID Status Reason Start Date Expiration Date V isits Requested Visits Authorized [id number] Closed Auto-Generate d Referral 09/24/2023 10/16/2024 1 [...] Care Teams (unrecognized sec tion and content) Store Coordinator Relationship Specialty Start Date End Date Bettye Powell MD [address] [place] [address] PCP - General Internal Medicine 02/09/14 Store Coordinator Relationship Specialty Start Date End Date Bettye Powell MD [address] [place] [address] PCP - General Internal Medicine 02/09/14 Store Coordinator Relationship Specialty Start Date End Date Bettye Powell MD [address] [place] [address] PCP - General Internal Medicine 02/09/14 Store Coordinator Relationship Specialty Start Date End Date Bettye Powell MD [address] [place] [address] PCP - General Internal Medicine 02/09/14 Store Coordinator Relationship Specialty Start Date End Date Bettye Powell MD [address] [place] [address] PCP - General Internal Medicine 02/09/14 Store Coordinator Relationship Specialty Start Date End Date Bettye Powell MD [address] [place] [address] PCP - General Internal Medicine 02/09/14 Store Coordinator Relationship Specialty Start Date End Date Bettye Powell MD [address] [place] [address] PCP - General Internal Medicine 02/09/14 Store Coordinator Relationship Specialty Start Date End Date Bettye Powell MD [address] [place] [address] PCP - General Internal Medicine 02/09/14 Store Coordinator Relationship Specialty Start Date End Date Bettye Powell MD [address] [place] [address] PCP - General Internal Medicine 02/09/14 Store Coordinator Relationship Specialty Start Date End Date Bettye Powell MD [address] [place] [address] PCP - General Internal Medicine 02/09/14 Store Coordinator Relationship Specialty Start Date End Date Bettye Powell MD [address] [place] [address] PCP - General Internal Medicine 02/09/14 Store Coordinator Relationship Specialty Start Date End Date Bettye Powell MD [address] [place] [address] PCP - General Internal Medicine 02/09/14 Store Coordinator Relationship Specialty Start Date End Date eBttye Powell MD [address] [place] [address] PCP - General Internal Medicine 02/09/14 Store Coordinator Relationship Specialty Start Date End Date Bettye Powell MD [address] [place] [address] PCP - General Internal Medicine 02/09/14 Store Coordinator Relationship Specialty Start Date End Date Bettye Powell MD [address] [place] [address] PCP - General Internal Medicine 02/09/14 Store Coordinator Relationship Specialty Start Date End Date Bettye Powell MD [address] [place] [address] PCP - General Internal Medicine 02/09/14 Store Coordinator Relationship Specialty Start Date End Date Bettye Powell MD [address] [place] [address] PCP - General Internal Medicine 02/09/14 Store Coordinator Relationship Specialty Start Date End Date Bettye Powell MD [address] [place] [address] PCP - General Internal Medicine 02/09/14 Store Coordinator Relationship Specialty Start Date End Date Bettye Powell MD [address] [place] [address] PCP - General Internal Medicine 02/09/14 Store Coordinator Relationship Specialty Start Date End Date Bettye Powell MD [address] [place] [address] PCP - General Internal Medicine 02/09/14 Store Coordinator Relationship Specialty Start Date End Date Bettye Powell MD [address] [place] [address] PCP - General Internal Medicine 02/09/14 Store Coordinator Relationship Specialty Start Date End Date Bettye Powell MD [address] [place] [address] PCP - General Internal Medicine 02/09/14 Store Coordinator Relationship Specialty Start Date End Date Bettye Powell MD [address] [place] [address] PCP - General Internal Medicine 02/09/14 Store Coordinator Relationship Specialty Start Date End Date Bettye Powell MD [address] [place] [address] PCP - General Internal Medicine 02/09/14 Store Coordinator Relationship Specialty Start Date End Date Bettye Powell MD [address] [place] [address] PCP - General Internal Medicine 02/09/14 Store Coordinator Relationship Specialty Start Date End Date Bettye Powell MD [address] [place] [address] PCP - General Internal Medicine 02/09/14 Store Coordinator Relationship Specialty Start Date End Date Bettye Powell MD [address] [place] [address] PCP - General Internal Medicine 02/09/14 Store Coordinator Relationship Specialty Start Date End Date Bettye Powell MD [address] [place] [address] PCP - General Internal Medicine 02/09/14 Store Coordinator Relationship Specialty Start Date End Date Bettye Powell MD [address] [place] [address] PCP - General Internal Medicine 02/09/14 Store Coordinator Relationship Specialty Start Date End Date Bettye Powell MD [address] [place] [address] PCP - General Internal Medicine 02/09/14 Store Coordinator Relationship Specialty Start Date End Date Bettye Powell MD [address] [place] [address] PCP - General Internal Medicine 02/09/14 Store Coordinator Relationship Specialty Start Date End Date Bettye Powell MD [address] [place] [address] PCP - General Internal Medicine 02/09/14 Store Coordinator Relationship Specialty Start Date End Date Bettye Powell MD [address] [place] [address] PCP - General Internal Medicine 02/09/14 Store Coordinator Relationship Specialty Start Date End Date Bettye Powell MD [address] [place] [address] PCP - General Internal Medicine 02/09/14 Store Coordinator Relationship Specialty Start Date End Date Bettye Powell MD [address] [place] [address] PCP - General Internal Medicine 02/09/14 Rachel Guthrie PA-C [address] [place] [address] [employer] [facility] 07/20/24 Amada Muro APRN.CNP [address] [place] [address] [employer] [facility] 07/20/24 Rere Gonzales PA-C [address] [place] [address] [facility] 07/20/24 Store Coordinator Relationship Specialty Start Date End Date Bettye Powell MD [address] [facility] [address] PCP - General Internal Medicine 02/09/14 Rachel Guthrie PA-C [address] [place] [address] [facility] 07/20/24 Amada Muro APRN.ALANIS [address] [place], [place] [id number] [facility] 07/20/24 Rere Gonzales PA-C [address] [place], [place] [address] [facility] 07/20/24 (unrecognized sect ion and content) No Status Records FoundNo Status Records FoundNo Status Records Found INFORMATION SOURCE (unrecogn ized section and content) DATE CREATED AUTHOR 07/15/2022 [facility] DATE CREATED AUTHOR AUTHOR'S ORGANIZ ATION 09/08/2024 [facility] DATE CREATED AUTHOR AUTHOR'S ORGANIZ ATION 01/16/2025 [facility] FOR RECORDS PERTAINING TO PATIENTS WHO ARE [...] BE BASED ON THE PRIMARY CLINICAL RECORDS. [email or web address] provides no warranty or guarantee of the accuracy or completeness of information in this document.
[2025-01-16 20:19] VITALS: O2SAT 99
[2025-01-16 21:41] LABS: Bedside Glucose 121 mg/dL (74-106)
[2025-01-16 22:00] VITALS: BP 154/89; PULSE 63; RESP 18; O2SAT 97
[2025-01-16] MEDS: Acetaminophen 325 MG Tablet 650 MG PO (22:31)
[2025-01-16] MEDS: Latanoprost 0.005% 1 Bottle 0.005 DRP EACH EYE (22:32)
[2025-01-16 22:33] VITALS: BP 154/89; PULSE 63
[2025-01-16] MEDS: metFORMIN HCl 500 MG Tablet 750 MG PO (22:33)
[2025-01-16] MEDS: Metoprolol Tartrate 25 MG Tablet 12.5 MG PO (22:33)
[2025-01-16] MEDS: MELATONIN 3 MG TABLET PO (22:34)
[2025-01-16] MEDS: Atorvastatin Calcium 40 MG Tablet PO (22:34)
[2025-01-16] MEDS: 0.9% Saline Lock 10 ML Syringe IV (22:36)
[2025-01-16] MEDS: Polyethylene Glycol 3350 17 GM PACKET PO (22:39)
[2025-01-17] VITALS (11 sets, daily range): BP systolic 127–164; BP diastolic 75–90; PULSE 61–68; RESP 16–18; TEMP 36.2–37.1; O2SAT 95–98
[2025-01-17] MEDS: tiZANidine HCl 2 MG Tablet PO ×2 (00:47→16:36)
[2025-01-17] MEDS: Levothyroxine 50 MCG Tablet PO (05:30)
[2025-01-17] MEDS: Enoxaparin 40 MG/0.4 ML Syringe SC (05:30)
[2025-01-17 07:24] LABS: Bedside Glucose 124 mg/dL (74-106)
[2025-01-17 07:54] LABS: Phosphorus 3.2 mg/dL (2.7-4.5)
[2025-01-17 08:00] LABS: Ferritin 22 ng/mL (37-417); Iron 57 ug/dL (65-175); Iron Binding Capacity,Total 400 ug/dL (250-450); Iron Binding Capacity,Unsat 343 ug/dL (228-428)
[2025-01-17] MEDS: Multivitamins,Therapeutic Tablet 1 TABLET PO (08:45)
[2025-01-17] MEDS: Pantoprazole Sodium 40 MG Tablet PO (08:45)
[2025-01-17] MEDS: metFORMIN HCl 500 MG Tablet 750 MG PO ×2 (08:45→21:48)
[2025-01-17] MEDS: Metoprolol Tartrate 25 MG Tablet 12.5 MG PO ×2 (08:45→21:50)
[2025-01-17] MEDS: Losartan Potassium 50 MG Tablet PO (08:45)
[2025-01-17] MEDS: Sertraline 50 MG Tablet PO (08:45)
[2025-01-17] MEDS: Aspirin E.C. 81 MG Tablet PO (08:45)
[2025-01-17] MEDS: Magnesium Hydroxide 30 ML UDC PO (10:03)
--- NOTE | 2025-01-17 11:31 | PN_ITS ---
Subjective Subjective Afebrile VSS -blood pressure since arrival on rehab has ranged from 136/78 to 165/91. The heart rate is within normal limits. Maintaining appropriate oxygen saturation on RA Oral intake - FOOD good FLUIDS good The blood sugar record was reviewed and blood sugars are very well-controlled. Discussed with nursing - no problems that need addressed Reviewed the THERAPY notes Medication list reviewed. Overnight trending pulse ox revealed no desaturations and was unremarkable. All labs from this morning was personally reviewed. Phosphorus is now normal at 3.2. Serum iron is low at 57 but the percent iron saturation is normal at 14. Ferritin is low at 22. Free T4 is normal at 1.10. Steven denies lightheadedness, vertigo, CP, SOB at rest, SOB with exertion, cough, nausea, vomiting, abd pain, dysuria, calf pain and ankle swelling. He c/o constipation and stool softeners and laxatives to be given today. Objective Data Objective Data Vital Signs: Vital Signs Temp Pulse Resp BP Pulse Ox O2 Del Method FiO2 97.2 F L 61 18 136/78 H 98 Room Air 21 01/17/25 05:52 01/17/25 10:00 01/17/25 05:52 01/17/25 10:00 01/17/25 08:22 01/17/25 09:12 01/16/25 20:19 Oxygen Delivery Method Room Air Weight: 256 lb 13.416 oz Body Mass Index (BMI) 35.8 Intake & Output: Intake and Output for Last 24 Hours 01/15/25 01/16/25 01/17/25 23:59 23:59 23:59 Intake Total 1200 / 1200 415 / 415 Output Total 825 / 825 290 / 290 Balance 375 / 375 125 / 125 Lab / Micro Data Labs: Laboratory Results - last 24 hr 01/16/25 12:10: POC Glucose 123 H 01/16/25 16:16: POC Glucose 108 H 01/16/25 21:02: POC Glucose 121 H 01/17/25 06:13: Phosphorus 3.2, Iron 57 L, TIBC 400, Iron Saturation 14.0, Unsaturated IBC 343, Ferritin 22 L, Free T4 1.10 01/17/25 07:01: POC Glucose 124 H Assessment & Plan Assessment/Plan (1) Physical debility: (2) Acute cerebrovascular accident (CVA): (3) Acute right hemiparesis: (4) Facial droop due to acute stroke: (5) Oropharyngeal dysphagia: (6) Dysarthria: (7) Paresthesia: (8) Microcytic anemia: (9) Type 2 diabetes mellitus: QUALIFIERS: Diabetes mellitus nursing home insulin use: without nursing home use Diabetes mellitus complication status: with other specified complication Qualified Code(s): E11.69 - Type 2 diabetes mellitus with other specified complication (10) Essential hypertension: (11) Hyperlipemia: QUALIFIERS: Hyperlipidemia type: unspecified Qualified Code(s): E78.5 - Hyperlipidemia, unspecified (12) Atherosclerotic heart disease of [place] coronary artery without angina pectoris: QUALIFIERS: [place] vs. transplanted heart: [place] heart Qualified Code(s): I25.10 - Atherosclerotic heart disease of [place] coronary artery without angina pectoris (13) History of coronary artery stent placement: (14) Concentric left ventricular hypertrophy: (15) Grade I diastolic dysfunction: (16) GERD (gastroesophageal reflux disease): QUALIFIERS: Esophagitis presence: without esophagitis Qualified Code(s): K21.9 - Gastro-esophageal reflux disease without esophagitis (17) Morbid obesity: (18) History of colon cancer: (19) Reactive depression: (20) Diabetic polyneuropathy: QUALIFIERS: Diabetes mellitus type: type 2 Qualified Code(s): E11.42 - Type 2 diabetes mellitus with diabetic polyneuropathy (21) RLS (restless legs syndrome): PLAN: vs diabetic peripheral neuropathy (22) Pseudobulbar affect: (23) Iron deficiency anemia: (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 Continue therapy 2. Start ferrous sulfate with vitamin C since he is taking a PPI daily 3. Increase the dose of the Levothyroxine to 50 mcg daily except on Sunday will get 100 mcg. Recheck a TSH in 6-8 weeks. 4. KUB to assess stool burden in this patient with chronic constipation. He is taking Metformin and has had a partial colon resection......would expect him to have loose stool? Has had an ileostomy in past.........could he have intestinal stenosis? Charges/Coding Visit Charges Inpatient E&M: 25587 Subs Hosp L1
[2025-01-17 12:07] LABS: Bedside Glucose 134 mg/dL (74-106)
--- NOTE | 2025-01-17 12:35 | RAD_ITS ---
PROCEDURE: Brain over the skull 01/17/2025 REASON FOR EXAM: CONSTIPATION TECHNIQUE: Single view abdomen. FINDINGS: Bowel gas: Within normal limits. Specific. Calcifications: None appreciated but the barium in the colon which obscures the kidneys. Nephrolithiasis noted on prior CT scan from 2019. Bones: Unremarkable Other: Fairly dense contrast is seen in the ascending, transverse, descending and portion of the proximal sigmoid colon. RAD/Abdomen Single View IMPRESSION: transit of contrast to the colon has occurred as described above Reading Location: [facility]
[2025-01-17] MEDS: Ferrous Sulfate 325 MG Tablet PO (13:01)
[2025-01-17] MEDS: Ascorbic Acid 500 MG Tablet 1000 MG PO (13:01)
[2025-01-17 16:55] LABS: Bedside Glucose 133 mg/dL (74-106)
[2025-01-17 21:37] LABS: Bedside Glucose 123 mg/dL (74-106)
[2025-01-17] MEDS: Atorvastatin Calcium 40 MG Tablet PO (21:50)
[2025-01-17] MEDS: MELATONIN 3 MG TABLET PO (21:51)
[2025-01-17] MEDS: Latanoprost 0.005% 1 Bottle 0.005 DRP EACH EYE (21:52)
[2025-01-17] MEDS: Polyethylene Glycol 3350 17 GM PACKET PO (21:53)
[2025-01-18] VITALS (7 sets, daily range): BP systolic 125–168; BP diastolic 71–93; PULSE 56–65; RESP 16–18; TEMP 36.7–37; O2SAT 96–99; BMI 35.8
[2025-01-18] MEDS: Enoxaparin 40 MG/0.4 ML Syringe SC (05:36)
[2025-01-18] MEDS: Levothyroxine 100 MCG Tablet PO (05:37)
[2025-01-18 06:49] LABS: Bedside Glucose 123 mg/dL (74-106)
[2025-01-18] MEDS: Losartan Potassium 50 MG Tablet PO (08:38)
[2025-01-18] MEDS: Aspirin E.C. 81 MG Tablet PO (08:38)
[2025-01-18] MEDS: Sertraline 50 MG Tablet PO (08:38)
[2025-01-18] MEDS: Pantoprazole Sodium 40 MG Tablet PO (08:39)
[2025-01-18] MEDS: metFORMIN HCl 500 MG Tablet 750 MG PO ×2 (08:39→22:08)
[2025-01-18] MEDS: Multivitamins,Therapeutic Tablet 1 TABLET PO (08:39)
[2025-01-18] MEDS: Metoprolol Tartrate 25 MG Tablet 12.5 MG PO ×2 (08:39→22:10)
[2025-01-18] MEDS: tiZANidine HCl 2 MG Tablet PO (08:44)
[2025-01-18 11:27] LABS: Bedside Glucose 121 mg/dL (74-106)
[2025-01-18] MEDS: Ascorbic Acid 500 MG Tablet 1000 MG PO (13:10)
[2025-01-18] MEDS: Ferrous Sulfate 325 MG Tablet PO (13:10)
--- NOTE | 2025-01-18 21:00 | NURSING ---
PVR #3- Urine output 150mL and BS- 0mL.
[2025-01-18] MEDS: Atorvastatin Calcium 40 MG Tablet PO (22:10)
[2025-01-18] MEDS: MELATONIN 3 MG TABLET PO (22:13)
[2025-01-18] MEDS: Polyethylene Glycol 3350 17 GM PACKET PO (22:13)
[2025-01-18] MEDS: Latanoprost 0.005% 1 Bottle 0.005 DRP EACH EYE (22:14)
[2025-01-18 22:35] LABS: Bedside Glucose 122 mg/dL (74-106)
[2025-01-19 04:27] VITALS: BMI 35.8
[2025-01-19] MEDS: Levothyroxine 50 MCG Tablet PO (05:26)
[2025-01-19] MEDS: Enoxaparin 40 MG/0.4 ML Syringe SC (05:26)
[2025-01-19 06:13] VITALS: BP 143/89; PULSE 60; RESP 18; TEMP 36.6; O2SAT 96
[2025-01-19 07:02] LABS: Bedside Glucose 130 mg/dL (74-106)
[2025-01-19] MEDS: Losartan Potassium 50 MG Tablet PO (07:26)
[2025-01-19] MEDS: Aspirin E.C. 81 MG Tablet PO (07:26)
[2025-01-19] MEDS: metFORMIN HCl 500 MG Tablet 750 MG PO ×2 (07:26→22:34)
[2025-01-19 07:27] VITALS: PULSE 60
[2025-01-19] MEDS: Sertraline 50 MG Tablet PO (07:27)
[2025-01-19] MEDS: Metoprolol Tartrate 25 MG Tablet 12.5 MG PO ×2 (07:27→22:35)
[2025-01-19] MEDS: Multivitamins,Therapeutic Tablet 1 TABLET PO (07:27)
[2025-01-19] MEDS: Pantoprazole Sodium 40 MG Tablet PO (07:27)
[2025-01-19 09:20] VITALS: BP 135/82; PULSE 62; O2SAT 98
--- NOTE | 2025-01-19 09:41 | PN_ITS ---
Subjective Subjective Steven was seen on team rounds today. Muriel was present in the room for rounds. Afebrile VSS -blood pressure over the past 24 hours has ranged from 125/71 to 168/73. The last 4 blood pressures taken have ranged from 135/82 to 136/93. Heart rate is within normal limits. Maintaining appropriate oxygen saturation on RA Oral intake - FOOD good FLUIDS good The blood sugar record was reviewed. Blood sugars are under excellent control with no hypoglycemia. Discussed with nursing - no problems that need addressed Reviewed the THERAPY notes Medication list reviewed. Had 2 doses of tizanidine on Sunday and 1 dose yesterday a.m. and has not required any tizanidine today. Hemoccult stools negative. Steven is c/o laughing at things inappropriately and crying at times. He is also c/o hot flashes and sometimes coolness in the extremities. Denies headache, vertigo, lightheadedness, chest pain, shortness of breath, palpitations, nausea/vomiting/epigastric pain, dysuria and calf tenderness. He is complaining of frequent loose stools and he was incontinent of stool this morning which was quite disturbing to him. He was receiving stool softeners and laxatives due to complaint of constipation. He tends to have chronic constipation. He is c/o increased tonicity in the R hand and arm and pain. He denies spasms in the legs today. Objective Data Objective Data Vital Signs: Vital Signs Temp Pulse Resp BP Pulse Ox O2 Del Method FiO2 97.8 F 62 18 135/82 H 98 Room Air 21 01/19/25 06:13 01/19/25 09:20 01/19/25 06:13 01/19/25 09:20 01/19/25 09:20 01/19/25 09:20 01/16/25 20:19 Oxygen Delivery Method Room Air Weight: 256 lb 13.416 oz Body Mass Index (BMI) 35.8 Intake & Output: Intake and Output for Last 24 Hours 01/17/25 01/18/25 01/19/25 23:59 23:59 23:59 Intake Total 2355 / 2355 1620 / 1620 380 / 380 Output Total 1340 / 1340 1550 / 1800 650 / 650 Balance 1015 / 1015 70 / -180 -270 / -270 Lab / Micro Data Labs: Laboratory Results - last 24 hr 01/18/25 11:06: POC Glucose 121 H 01/18/25 22:03: POC Glucose 122 H 01/19/25 06:44: POC Glucose 130 H Micro: Microbiology 01/17/25 12:25 Stool Stool Occult Blood (LAWSON) - Final Physical Exam Const alert, oriented x3 and no apparent distress Constitutional Narrative: Sitting in the recliner at the bedside and eating his lunch when I entered the room. He did not require assist to eat and he was instituting the swallowing precautions told to him by ST.....turning his head to the left when swallowing General Appearance: cooperative, well kempt and well developed Nutritional Appearance: obese Eyes Eyes Narrative: No discharge from the eyes and no mattering of the eyelashes. Eyes are blue. Slight ptosis on the R of the upper lid. Neck nodes General: tenderness Resp normal respiratory effort, normal air movement, no use of accessory muscles and clear to auscultation bilaterally Effort and Inspection: able to speak in complete sentences; Negative for tachypneic or pursed lip breathing Cardio regular rate, regular rhythm, no murmurs, no rub and no gallops Cardio Narrative: No ectopy GI normal to inspection, nondistended, normoactive bowel sounds, soft to palpation and non-tender GI Narrative: no guarding with palpation. Back/Spine Back/Spine Narrative: Denies pain. 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 transplanted heart: [place] heart Qualified Code(s): I25.10 - Atherosclerotic heart disease of [place] coronary artery without angina pectoris (13) History of coronary artery stent placement: (14) Concentric left ventricular hypertrophy: (15) Grade I diastolic dysfunction: (16) GERD (gastroesophageal reflux disease): QUALIFIERS: Esophagitis presence: without esophagitis Qualified Code(s): K21.9 - Gastro-esophageal reflux disease without esophagitis (17) Morbid obesity: (18) History of colon cancer: (19) Reactive depression: (20) Diabetic polyneuropathy: QUALIFIERS: Diabetes mellitus type: type 2 Qualified Code(s): E11.42 - Type 2 diabetes mellitus with diabetic polyneuropathy (21) RLS (restless legs syndrome): PLAN: vs diabetic peripheral neuropathy (22) Pseudobulbar affect: (23) Iron deficiency anemia: (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 Continue therapy 2. Continue sertraline.....if he continues to tolerate may increase to 100 mg at the end of the week. this may also help with pseudobulbar affect. If he continues to have emotional lability will consider a trial of Nudexta 3. Had trouble sleeping last night.....awoke with muscle spasms. Overnight trending pulse ox di not show desaturations. Ferritin is low at only 22, TIBC is high normal and serum iron is low. Ferrous sulfate started. I suspect the pain/spasms in the legs may be due to diabetic neuropathy. The pain and increased tonicity in the RUE are likely central. Will try Gabapentin 200 mg at HS tonight. 4. I discussed Ozempic with Steven and Muriel. They have a co-pay of $947.00 due to their deductible not being updated.......with the acute hospitalization and now rehab there deductible has been met and the insurance company/billing is just behind. With his young age, hx of CAD with PCI, recent CVA, morbid obesity and uncontrolled DM II I feel we need to be very aggressive with treatment and I recommended if at all possible they pay forb the drug now and worry about reimbursement after the insurance company catches up with billing. They are agreeable and a RX has been sent to the OP pharmacy. 5. The stroke happened on 01/14/25. We are now 5 days post stroke and the BP has been coming down. He has not needed any PRN Hydralazine........will adjust antihypertensives starting on if the BP is still above goal. Goal is < 130/80. Charges/Coding Visit Charges Inpatient E&M: 19423 Subs Hosp L2
[2025-01-19] MEDS: Ascorbic Acid 500 MG Tablet 1000 MG PO (10:43)
[2025-01-19] MEDS: Ferrous Sulfate 325 MG Tablet PO (10:44)
[2025-01-19 11:02] VITALS: BMI 35.8
[2025-01-19 11:36] LABS: Bedside Glucose 95 mg/dL (74-106)
[2025-01-19 11:36] LABS: Bedside Glucose 102 mg/dL (74-106)
[2025-01-19 11:43] LABS: Bedside Glucose 128 mg/dL (74-106)
--- NOTE | 2025-01-19 12:48 | CASEMGMT ---
Social Work IDT met with patient and for Team meeting. Discussed patient's progress in PT/OT/ST/SN. Educated to MMO CM insurance with [employer] 01/22 and continued stay is not guaranteed with each review, and advanced notice is not required. Pt's goal is to return home living with . However, works full-time, and currently pt has right side neglect, SeraLift or x2 assist. SW provided written education from [place] [employer] on Life After a Stroke, Caregiver Guide and Pseudobulbar Affect and Stroke Support Group. SW educated to assistance with DC planning and the two paths would be home with assistance, skilled HHC, nonskilled HHC or DME needs vs SNF - precert vs OOP cost. Offered to assist with FMLA from . Will ReTeam weekly. SW will continue to follow for DC planning and support. Joyce Mccarthy MSW THERMAL SPRAY OPERATOR
[2025-01-19 14:00] VITALS: BP 137/75; PULSE 61; RESP 18; TEMP 36.1; O2SAT 98
[2025-01-19 17:12] LABS: Bedside Glucose 106 mg/dL (74-106)
[2025-01-19 18:00] VITALS: BP 135/87; PULSE 71; RESP 16; TEMP 36.3; O2SAT 98
[2025-01-19] MEDS: tiZANidine HCl 2 MG Tablet PO (20:11)
[2025-01-19] MEDS: Latanoprost 0.005% 1 Bottle 0.005 DRP EACH EYE (22:34)
[2025-01-19] MEDS: Atorvastatin Calcium 40 MG Tablet PO (22:34)
[2025-01-19] MEDS: MELATONIN 3 MG TABLET PO (22:34)
[2025-01-19 22:35] VITALS: BP 141/83; PULSE 60; RESP 18; TEMP 36.4; O2SAT 97
[2025-01-19 22:40] LABS: Bedside Glucose 112 mg/dL (74-106)
[2025-01-20] MEDS: Acetaminophen 325 MG Tablet 650 MG PO (00:16)
[2025-01-20 06:00] VITALS: BP 143/81; PULSE 57; RESP 18; TEMP 36.5; O2SAT 99
[2025-01-20] MEDS: Enoxaparin 40 MG/0.4 ML Syringe SC (06:28)
[2025-01-20] MEDS: Levothyroxine 50 MCG Tablet PO (06:28)
[2025-01-20 06:46] LABS: Bedside Glucose 124 mg/dL (74-106)
[2025-01-20 08:42] VITALS: PULSE 57
[2025-01-20] MEDS: Multivitamins,Therapeutic Tablet 1 TABLET PO (08:42)
[2025-01-20] MEDS: Pantoprazole Sodium 40 MG Tablet PO (08:42)
[2025-01-20] MEDS: Sertraline 50 MG Tablet PO (08:42)
[2025-01-20] MEDS: metFORMIN HCl 500 MG Tablet 750 MG PO (08:42)
[2025-01-20] MEDS: Losartan Potassium 50 MG Tablet PO (08:42)
[2025-01-20] MEDS: Aspirin E.C. 81 MG Tablet PO (08:42)
[2025-01-20] MEDS: Metoprolol Tartrate 25 MG Tablet 12.5 MG PO ×2 (08:42→22:16)
[2025-01-20] MEDS: tiZANidine HCl 2 MG Tablet PO ×2 (08:45→19:32)
--- NOTE | 2025-01-20 09:08 | PN_ITS ---
Subjective Subjective Afebrile VSS -blood pressure for the past 24 hours has ranged from 135/87 to 143/81. Heart rate has ranged from 57-71. Maintaining appropriate oxygen saturation on RA Oral intake - FOOD intake somewhat decreased over previous intake for the past 24H FLUIDS decreased past 24 hr Blood sugars remain well-controlled with no hypoglycemia. Discussed with nursing - no problems that need addressed Reviewed the THERAPY notes Medication list reviewed. His picked up the Ozempic last night and will start in the AM. Will decrease the GLucophage to 500 mg once daily in the AM and use a SSI Slept better last night. C/O leg cramps again this AM. Obtaining hx is difficult. He tells me that at home he gets cramps when he sweats a lot. Then he tells me he gets them at night sometimes. He has never talked to his doctor about this. He takes over the counter potassium and Magnesium tabs PRN and he seems to think they help......after an hour or so? the cramps are primarily in the R calf. Denies claudication. Tells me that the muscle relaxer makes him tired all day but, he only had 1 Tizanidine yesterday and that was before bed. He is c/o feeling tired today........I pointed out how much energy he now has to expend to do therapy since he has R hemiparesis. Having trouble with attention. When we were talking about muscle cramps he suddenly asked me if I changed his diet because he did not get all the turkey he ordered for lunch. I reviewed the post production assistant consult. Pt refused diet education at the time of the consult. He and I discussed the importance of maintaining a good healthy diet to help reduce the risk of CVA's and NV's going forward. Has already had a stent and now a stroke. Reviewed goals of tx again......HGBA1C 7 or less, LDL 70 or less and BP less than 130/80. We also discussed the importance of regular follow up with PCP........he tells me he did not see Dr. Gill very often. Objective Data Objective Data Vital Signs: Vital Signs Temp Pulse Resp BP Pulse Ox O2 Del Method FiO2 97.7 F L 57 L 18 143/81 H 99 Room Air 01/20/25 06:00 01/20/25 08:42 01/20/25 06:00 01/20/25 06:00 01/20/25 06:00 01/20/25 06:00 01/16/25 20:19 Oxygen Delivery Method Room Air Weight: 256 lb 13.416 oz Body Mass Index (BMI) 35.8 Intake & Output: Intake and Output for Last 24 Hours 01/18/25 01/19/25 01/20/25 23:59 23:59 23:59 Intake Total 1620 / 1620 820 / 820 400 / 400 Output Total 1550 / 1800 1250 / 1900 950 / 950 Balance 70 / -180 -430 / -1080 -550 / -550 Lab / Micro Data Labs: Laboratory Results - last 24 hr 01/18/25 16:39: POC Glucose 95 01/18/25 16:40: POC Glucose 102 01/19/25 10:41: POC Glucose 128 H 01/19/25 16:53: POC Glucose 106 01/19/25 22:21: POC Glucose 112 H 01/20/25 06:25: POC Glucose 124 H Micro: Microbiology 01/17/25 12:25 Stool Stool Occult Blood ([facility]WSON) - Final Physical Exam Const alert, oriented x3 and no apparent distress Constitutional Narrative: Sitting in the recliner at the bedside and eating his lunch when I entered the room. He did not require assist to eat and he was instituting the swallowing precautions told to him by ST.....turning his head to the left when swallowing General Appearance: cooperative Resp normal respiratory effort, normal air movement and clear to auscultation bilaterally Effort and Inspection: able to speak in complete sentences; Negative for tac hypneic Cardio regular rate, regular rhythm, no murmurs, no rub and no gallops Cardio Narrative: No ectopy GI normal to inspection, nondistended, normoactive bowel sounds, soft to palpation and non-tender GI Narrative: no guarding with palpation. Extremity no calf tenderness Assessment & Plan Assessment/Plan (1) Physical debility: (2) Acute cerebrovascular accident (CVA): (3) Acute right hemiparesis: (4) Facial droop due to acute stroke: (5) Oropharyngeal dysphagia: (6) Dysarthria: (7) Paresthesia: (8) Microcytic anemia: (9) Type 2 diabetes mellitus: QUALIFIERS: Diabetes mellitus [facility] insulin use: without [facility] use Diabetes mellitus complication status: with other specified complication Qualified Code(s): E11.69 - Type 2 diabetes mellitus with other specified complication (10) Essential hypertension: (11) Hyperlipemia: QUALIFIERS: Hyperlipidemia type: unspecified Qualified Code(s): E78.5 - Hyperlipidemia, unspecified (12) Atherosclerotic heart disease of [place] coronary artery without angina pectoris: QUALIFIERS: [place] vs. transplanted heart: [place] heart Qualified Code(s): I25.10 - Atherosclerotic heart disease of [place] coronary artery without angina pectoris (13) History of coronary artery stent placement: (14) Concentric left ventricular hypertrophy: (15) Grade I diastolic dysfunction: (16) GERD (gastroesophageal reflux disease): QUALIFIERS: Esophagitis presence: without esophagitis Qualified Code(s): K21.9 - Gastro-esophageal reflux disease without esophagitis (17) Morbid obesity: (18) History of colon cancer: (19) Reactive depression: (20) Diabetic polyneuropathy: QUALIFIERS: Diabetes mellitus type: type 2 Qualified Code(s): E11.42 - Type 2 diabetes mellitus with diabetic polyneuropathy (21) RLS (restless legs syndrome): PLAN: This is a possible cause of leg cramps but I think this is unlikely because the cramps are not only at night. (22) Pseudobulbar affect: (23) Iron deficiency anemia: (24) Central neuropathic pain: PLAN: C/O cramping in the R hand.......may be due to central origin. does not seem to be a big problem right now......will continue to monitor. PLAN: Plan 1. Continue therapy 2. Start Ozempic 0.25 mg once weekly tomorrow morning. Change Glucophage to 500 mg once daily in the a.m. institute a low dose sliding scale insulin AC and at bedtime. Continue to monitor blood sugars AC and at bedtime 3. Schedule the Tizanidine 2 mg Q 12H. 4. IV iron sucrose.........likely he does not absorb oral iron very well because he is chronically on Protonix 40 mg daily. Muscle cramps may be related to iron deficiency. Since it was only the R calf that has cramps and he has known vascular disease with hx of CAD and ischemic CVA he may have PVD. Denies low back pain. He is very vague in this description of cramps. Potassium, magnesium, phosphorus and calcium are all normal........... I do not see the value at this time and adding a magnesium or potassium supplement to his current drug regimen. Will add pyridoxine 50 mg twice daily to the current drug regimen. When he is not in therapy will remove the socks and LUCIA wraps and check pulses in his feet. 5. I spoke with the post production assistant and asked her to provide education to Steven and his about what a healthy diet looks like for him. Charges/Coding Visit Charges Inpatient E&M: 32465 Subs Hosp L1
[2025-01-20] MEDS: Ascorbic Acid 500 MG Tablet 1000 MG PO (11:27)
[2025-01-20] MEDS: Ferrous Sulfate 325 MG Tablet PO (11:27)
[2025-01-20 11:48] LABS: Bedside Glucose 105 mg/dL (74-106)
--- NOTE | 2025-01-20 15:42 | CHAPLAIN ---
Type of Pastoral Visit _x__ Initial Visit ___ Follow-up Visit ___ On-call Visit ___ General Patient Visit ___ Spiritual Assessment ___ Family Conference ___ Bereavement ___ Rapid Response ___ Code Blue ___ Other (describe below) Pastoral Care Referral From _x__ Patient ___ Family ___ Nurse ___ Physician ___ Electrician Supervisor Airplane ___ Machine Operator Helper ___ Other (describe below) Sacrament/Intervention _x__ Active listening ___ Anointing ___ Cheondoism ___ Bereavement ___ Communion _x__ [place] exploration ___ _x__ Life review _x__ Prayer ___ Reconciliation ___ Sacrament of Sick ___ Supportive presence ___ Wedding ___ Other (describe below) Pastoral Comments patient speaks of his situation and how he is managing this health issue; pt identifies self as a Spiritism and active in 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
[2025-01-20 16:24] VITALS: BMI 35.8
[2025-01-20] MEDS: Pyridoxine HCl 50 MG Tablet PO (17:19)
[2025-01-20] MEDS: metFORMIN HCl 500 MG Tablet PO (17:19)
[2025-01-20 17:45] LABS: Bedside Glucose 100 mg/dL (74-106)
[2025-01-20 18:00] VITALS: BP 138/78; PULSE 62; RESP 18; TEMP 36.6; O2SAT 99
[2025-01-20] MEDS: 0.9% Saline Lock 10 ML Syringe IV ×2 (19:33→22:20)
[2025-01-20] MEDS: Sodium Ferric Gluconat/Sucrose 125 MG in 0.9% Normal Saline (100mL Bag) 100 ML 110 MG IV (19:36)
[2025-01-20] MEDS: 0.9% Normal Saline (250mL Bag) 250 ML 15 ML IV (19:37)
[2025-01-20 22:09] LABS: Bedside Glucose 128 mg/dL (74-106)
[2025-01-20] MEDS: Atorvastatin Calcium 40 MG Tablet PO (22:15)
[2025-01-20] MEDS: MELATONIN 3 MG TABLET PO (22:15)
[2025-01-20 22:16] VITALS: BP 136/74; PULSE 59
[2025-01-20] MEDS: Latanoprost 0.005% 1 Bottle 0.005 DRP EACH EYE (22:16)
[2025-01-21 05:57] VITALS: BP 143/84; PULSE 62; RESP 15; TEMP 36.8; O2SAT 98
[2025-01-21 06:39] LABS: Bedside Glucose 142 mg/dL (74-106)
[2025-01-21] MEDS: tiZANidine HCl 2 MG Tablet PO ×2 (06:41→21:37)
[2025-01-21] MEDS: Levothyroxine 50 MCG Tablet PO (06:41)
[2025-01-21] MEDS: Enoxaparin 40 MG/0.4 ML Syringe SC (06:41)
[2025-01-21] MEDS: Pyridoxine HCl 50 MG Tablet PO ×2 (06:41→16:37)
[2025-01-21 07:45] VITALS: PULSE 62
[2025-01-21] MEDS: Metoprolol Tartrate 25 MG Tablet 12.5 MG PO ×2 (07:45→21:38)
[2025-01-21] MEDS: metFORMIN HCl 500 MG Tablet PO ×2 (07:45→16:37)
[2025-01-21] MEDS: Pantoprazole Sodium 40 MG Tablet PO (07:45)
[2025-01-21] MEDS: Multivitamins,Therapeutic Tablet 1 TABLET PO (07:45)
[2025-01-21] MEDS: Ergocalciferol 1.25 MG (50, 000 UNIT) Capsule PO (07:45)
[2025-01-21] MEDS: Sertraline 50 MG Tablet PO (07:45)
[2025-01-21] MEDS: Aspirin E.C. 81 MG Tablet PO (07:45)
[2025-01-21] MEDS: Losartan Potassium 50 MG Tablet PO (07:46)
[2025-01-21] MEDS: SEMAGLUTIDE 0.25 MG/0.368 ML PEN.INJCTR SQ (07:47)
[2025-01-21] MEDS: Ascorbic Acid 500 MG Tablet 1000 MG PO (11:49)
[2025-01-21] MEDS: Ferrous Sulfate 325 MG Tablet PO (11:49)
[2025-01-21 11:57] LABS: Bedside Glucose 101 mg/dL (74-106)
[2025-01-21 13:58] VITALS: BMI 35.8
[2025-01-21 17:17] LABS: Bedside Glucose 117 mg/dL (74-106)
[2025-01-21 17:38] VITALS: BP 131/75; PULSE 61; RESP 14; TEMP 36.6; O2SAT 98
[2025-01-21] MEDS: 0.9% Saline Lock 10 ML Syringe IV (19:18)
[2025-01-21] MEDS: Sodium Ferric Gluconat/Sucrose 250 MG in 0.9% Normal Saline (250mL Bag) 250 ML 135 MG IV (19:19)
[2025-01-21 20:59] LABS: Bedside Glucose 107 mg/dL (74-106)
[2025-01-21] MEDS: MELATONIN 3 MG TABLET PO (21:37)
[2025-01-21] MEDS: Latanoprost 0.005% 1 Bottle 0.005 DRP EACH EYE (21:37)
[2025-01-21] MEDS: Atorvastatin Calcium 40 MG Tablet PO (21:37)
[2025-01-21 21:38] VITALS: BP 134/76; PULSE 65
[2025-01-22 05:00] VITALS: BMI 35.8
[2025-01-22] MEDS: Levothyroxine 50 MCG Tablet PO (05:41)
[2025-01-22] MEDS: tiZANidine HCl 2 MG Tablet PO ×2 (05:41→18:20)
[2025-01-22] MEDS: Enoxaparin 40 MG/0.4 ML Syringe SC (05:41)
[2025-01-22 06:00] VITALS: BP 146/83; PULSE 56; RESP 16; TEMP 36.9; O2SAT 98
[2025-01-22] MEDS: Pyridoxine HCl 50 MG Tablet PO ×2 (06:58→17:32)
[2025-01-22 07:21] LABS: Bedside Glucose 135 mg/dL (74-106)
[2025-01-22 08:02] VITALS: PULSE 56
[2025-01-22] MEDS: Sertraline 50 MG Tablet PO (08:02)
[2025-01-22] MEDS: metFORMIN HCl 500 MG Tablet PO ×2 (08:02→17:32)
[2025-01-22] MEDS: Pantoprazole Sodium 40 MG Tablet PO (08:02)
[2025-01-22] MEDS: Multivitamins,Therapeutic Tablet 1 TABLET PO (08:02)
[2025-01-22] MEDS: Metoprolol Tartrate 25 MG Tablet 12.5 MG PO ×2 (08:02→21:43)
[2025-01-22] MEDS: Aspirin E.C. 81 MG Tablet PO (08:02)
[2025-01-22] MEDS: 0.9% Saline Lock 10 ML Syringe IV (08:03)
[2025-01-22] MEDS: Losartan Potassium 50 MG Tablet PO (08:03)
[2025-01-22 11:22] LABS: Bedside Glucose 84 mg/dL (74-106)
--- NOTE | 2025-01-22 12:04 | PN_ITS ---
Subjective Subjective Afebrile VSS - Maintaining appropriate oxygen saturation on RA Oral intake - FOOD good FLUIDS good The blood sugar record was reviewed. Discussed with nursing - no problems that need addressed Reviewed the THERAPY notes Medication list reviewed. Slept well last night. Denies nausea/vomiting/abdominal cramping/abdominal pain. No chest pain, shortness of breath or palpitations. Objective Data Objective Data Vital Signs: Vital Signs Temp Pulse Resp BP Pulse Ox O2 Del Method FiO2 98.4 F 56 L 16 146/83 H 98 Room Air 21 01/22/25 06:00 01/22/25 08:02 01/22/25 06:00 01/22/25 06:00 01/22/25 06:00 01/22/25 06:00 01/16/25 20:19 Oxygen Delivery Method Room Air Weight: 256 lb 13.416 oz Body Mass Index (BMI) 35.8 Intake & Output: Intake and Output for Last 24 Hours 01/20/25 01/21/25 01/22/25 23:59 23:59 23:59 Intake Total 1805 / 1805 2052.75 / 2052.75 360 / 360 Output Total 1925 / 2100 2465 / 2465 1150 / 1150 Balance -120 / -295 -412.25 / -412.25 -790 / -790 Lab / Micro Data 01/23/25 10:12 01/23/25 10:12 Labs: Laboratory Results - last 24 hr 01/21/25 16:53: POC Glucose 117 H 01/21/25 20:32: POC Glucose 107 H 01/22/25 07:00: POC Glucose 135 H 01/22/25 11:03: POC Glucose 84 Micro: Microbiology 01/17/25 12:25 Stool Stool Occult Blood (LAWSON) - Final Physical Exam Const alert, oriented x3 and no apparent distress General Appearance: cooperative Resp normal respiratory effort, normal air movement and clear to auscultation bilaterally Effort and Inspection: able to speak in complete sentences; Negative for tachypneic Cardio regular rate, regular rhythm, no murmurs, no rub and no gallops Cardio Narrative: No ectopy GI normal to inspection, nondistended, normoactive bowel sounds, soft to palpation and non-tender GI Narrative: no guarding with palpation. 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 transplanted heart: [place] heart Qualified Code(s): I25.10 - Atherosclerotic heart disease of [place] coronary artery without angina pectoris (13) History of coronary artery stent placement: (14) Concentric left ventricular hypertrophy: (15) Grade I diastolic dysfunction: (16) GERD (gastroesophageal reflux disease): QUALIFIERS: Esophagitis presence: without esophagitis Qualified Code(s): K21.9 - Gastro-esophageal reflux disease without esophagitis (17) Morbid obesity: (18) History of colon cancer: (19) Reactive depression: (20) Diabetic polyneuropathy: QUALIFIERS: Diabetes mellitus type: type 2 Qualified Code(s): E 11.42 - Type 2 diabetes mellitus with diabetic polyneuropathy (21) RLS (restless legs syndrome): (22) Pseudobulbar affect: (23) Iron deficiency anemia: (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 Continue therapy 2. Continue current drug regimen 3. Check a BMP tomorrow and if the creatinine is stable go up on the Cozaar dose to help with blood pressure control. 4. Once again educated him about importance of weight loss, dietary compliance, discontinuing smoking and keeping the hemoglobin A1c 7 or less, LDL 70 or less and blood pressure 130/80 or less. Charges/Coding Visit Charges Inpatient E&M: 58538 Subs Hosp L1
[2025-01-22] MEDS: Ferrous Sulfate 325 MG Tablet PO (12:22)
[2025-01-22] MEDS: Ascorbic Acid 500 MG Tablet 1000 MG PO (12:22)
[2025-01-22 15:45] VITALS: BMI 35.8
[2025-01-22] MEDS: Sodium Ferric Gluconat/Sucrose 250 MG in 0.9% Normal Saline (250mL Bag) 250 ML 135 MG IV (16:26)
[2025-01-22 16:59] LABS: Bedside Glucose 115 mg/dL (74-106)
[2025-01-22 18:00] VITALS: BP 141/81; PULSE 56; RESP 16; TEMP 36.4; O2SAT 98
[2025-01-22] MEDS: MELATONIN 3 MG TABLET PO (21:42)
[2025-01-22] MEDS: Latanoprost 0.005% 1 Bottle 0.005 DRP EACH EYE (21:42)
[2025-01-22 21:43] VITALS: BP 139/72; PULSE 61
[2025-01-22 21:45] VITALS: PULSE 59; RESP 16; O2SAT 98; BMI 35.8
[2025-01-22] MEDS: Atorvastatin Calcium 40 MG Tablet PO (21:49)
[2025-01-22 22:11] LABS: Bedside Glucose 134 mg/dL (74-106)
[2025-01-23 06:00] VITALS: BP 147/92; PULSE 67; RESP 18; TEMP 36.7; O2SAT 99; BMI 34.4
[2025-01-23] MEDS: Pyridoxine HCl 50 MG Tablet PO ×2 (06:23→17:37)
[2025-01-23] MEDS: Enoxaparin 40 MG/0.4 ML Syringe SC (06:24)
[2025-01-23] MEDS: tiZANidine HCl 2 MG Tablet PO ×2 (06:24→21:43)
[2025-01-23] MEDS: Levothyroxine 50 MCG Tablet PO (06:24)
[2025-01-23 06:57] LABS: Bedside Glucose 133 mg/dL (74-106)
[2025-01-23] MEDS: Sertraline 50 MG Tablet PO (09:01)
[2025-01-23 09:02] VITALS: PULSE 67
[2025-01-23] MEDS: Multivitamins,Therapeutic Tablet 1 TABLET PO (09:02)
[2025-01-23] MEDS: Pantoprazole Sodium 40 MG Tablet PO (09:02)
[2025-01-23] MEDS: Losartan Potassium 50 MG Tablet PO (09:02)
[2025-01-23] MEDS: Aspirin E.C. 81 MG Tablet PO (09:02)
[2025-01-23] MEDS: Metoprolol Tartrate 25 MG Tablet 12.5 MG PO ×2 (09:02→21:49)
--- NOTE | 2025-01-23 09:20 | PN_ITS ---
Subjective Subjective Afebrile Blood pressure over the past 24 hours has ranged from 139/78 to 147/92. Heart rate has ranged from 56-67. The blood sugar record was reviewed and blood sugars are under excellent control with no hypoglycemia. Denies nausea/abdominal pain. Weight is down approximately 9 pounds in the past week. Steven denies lightheadedness, vertigo, CP, SOB at rest, SOB with exertion, cough, nausea, vomiting, abd pain, diarrhea, constipation, dysuria, calf pain and ankle swelling. Continues to c/o R leg cramps and cramps in the left ribs. Does not appear to be in any discomfort when I am in the room with him. Slept well last night. tolerating the Ozempic with no adverse side effects. Objective Data Objective Data Vital Signs: Vital Signs Temp Pulse Resp BP Pulse Ox O2 Del Method FiO2 98.0 F 67 18 147/92 H 99 Room Air 21 01/23/25 06:00 01/23/25 09:02 01/23/25 06:00 01/23/25 06:00 01/23/25 06:00 01/23/25 06:00 01/16/25 20:19 Oxygen Delivery Method Room Air Weight: 247 lb 2.211 oz Body Mass Index (BMI) 34.4 Intake & Output: Intake and Output for Last 24 Hours 01/21/25 01/22/25 01/23/25 23:59 23:59 23:59 Intake Total 2052.75 / 2052.75 1443.75 / 1443.75 360 / 360 Output Total 2465 / 2465 1600 / 1600 785 / 785 Balance -412.25 / -412.25 -156.25 / -156.25 -425 / -425 Lab / Micro Data 01/23/25 10:12 01/23/25 10:12 Labs: Laboratory Results - last 24 hr 01/22/25 11:03: POC Glucose 84 01/22/25 16:27: POC Glucose 115 H 01/22/25 21:51: POC Glucose 134 H 01/23/25 06:17: POC Glucose 133 H Micro: Microbiology 01/17/25 12:25 Stool Stool Occult Blood (LAWSON) - Final Physical Exam Const alert, oriented x3 and no apparent distress General Appearance: cooperative Resp normal respiratory effort, normal air movement and clear to auscultation bilaterally Effort and Inspection: able to speak in complete sentences; Negative for tachypneic Cardio regular rate, regular rhythm, no murmurs, no rub and no gallops Cardio Narrative: No ectopy GI normal to inspection, nondistended, normoactive bowel sounds, soft to palpation and non-tender GI Narrative: no guarding with palpation. Extremity no calf tenderness Neuro Neuro Narrative: Ambulated 20 feet today with max assist of 2 and a hemiwalker. Minimal assistance with toilet transfer and tub/shower transfer. Max assist for toileting and total assist for lower body dressing. Mod assist for upper body dressing today. 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 transplanted heart: [place] heart Qualified Code(s): I25.10 - Atherosclerotic heart disease of [place] coronary artery without angina pectoris (13) History of coronary artery stent placement: (14) Concentric left ventricular hypertrophy: (15) Grade I diastolic dysfunction: (16) GERD (gastroesophageal reflux disease): QUALIFIERS: Esophagitis presence: without esophagitis Qualified Code(s): K21.9 - Gastro-esophageal reflux disease without esophagitis (17) Reactive depression: (18) Pseudobulbar affect: PLAN: Plan 1. Continue therapy 2. BMP and HH today. If creatinine is stable we will increase the Cozaar to 100 mg daily. Charges/Coding Visit Charges Inpatient E&M: 41879 [facility] Hosp L1
[2025-01-23 10:22] LABS: Hematocrit 40.4 % (40-54); Hemoglobin 13.4 g/dL (13.0-16.5)
[2025-01-23 10:45] LABS: Anion Gap 10 (5-15); BUN 12 mg/dL (4-19); BUN/Creat Ratio 14.7 RATIO (10-20); Calcium,Total 9.4 mg/dL (7.6-11.0); Carbon Dioxide 24.4 mmol/L (21.0-32.0); Chloride 101 mmol/L (98-108); Creatinine, Serum 0.79 mg/dL (0.70-1.20); EST Glomerular Filtration Rate 100 (>60); Estimated Creatinine Clearance 123.45 ml/min (50-250); Glucose 115 mg/dL (70-99); Potassium 4.2 mmol/L (3.3-5.1); Sodium Level 135 mmol/L (133-145)
[2025-01-23 11:36] LABS: Bedside Glucose 107 mg/dL (74-106)
[2025-01-23] MEDS: Ascorbic Acid 500 MG Tablet 1000 MG PO (12:11)
[2025-01-23] MEDS: Ferrous Sulfate 325 MG Tablet PO (12:11)
[2025-01-23 16:49] LABS: Bedside Glucose 102 mg/dL (74-106)
[2025-01-23] MEDS: 0.9% Saline Lock 10 ML Syringe IV ×2 (17:37→18:24)
[2025-01-23] MEDS: metFORMIN HCl 500 MG Tablet PO (18:05)
[2025-01-23] MEDS: Sodium Ferric Gluconat/Sucrose 250 MG in 0.9% Normal Saline (250mL Bag) 250 ML 135 MG IV (18:23)
[2025-01-23 21:30] VITALS: BP 144/69; PULSE 77; RESP 18; TEMP 35.8; O2SAT 97; BMI 34.4
[2025-01-23] MEDS: Latanoprost 0.005% 1 Bottle 0.005 DRP EACH EYE (21:44)
[2025-01-23] MEDS: MELATONIN 3 MG TABLET PO (21:44)
[2025-01-23] MEDS: Atorvastatin Calcium 40 MG Tablet PO (21:46)
[2025-01-23 21:49] VITALS: BP 144/69; PULSE 77
[2025-01-23 22:14] LABS: Bedside Glucose 121 mg/dL (74-106)
[2025-01-24] VITALS (7 sets, daily range): BP systolic 120–152; BP diastolic 66–79; PULSE 60–75; RESP 16–17; TEMP 36.2–36.4; O2SAT 97–99; BMI 34.4
[2025-01-24] MEDS: Enoxaparin 40 MG/0.4 ML Syringe SC (05:51)
[2025-01-24] MEDS: Levothyroxine 50 MCG Tablet PO (05:51)
[2025-01-24] MEDS: tiZANidine HCl 2 MG Tablet PO ×2 (06:13→20:12)
[2025-01-24] MEDS: Pyridoxine HCl 50 MG Tablet PO ×2 (06:13→17:18)
[2025-01-24 06:50] LABS: Bedside Glucose 124 mg/dL (74-106)
[2025-01-24] MEDS: Sertraline 50 MG Tablet PO (08:20)
[2025-01-24] MEDS: Losartan Potassium 100 MG Tablet PO (08:21)
[2025-01-24] MEDS: Aspirin E.C. 81 MG Tablet PO (08:21)
[2025-01-24] MEDS: Multivitamins,Therapeutic Tablet 1 TABLET PO (08:21)
[2025-01-24] MEDS: Metoprolol Tartrate 25 MG Tablet 12.5 MG PO ×2 (08:21→21:16)
[2025-01-24] MEDS: Pantoprazole Sodium 40 MG Tablet PO (08:21)
[2025-01-24] MEDS: Ascorbic Acid 500 MG Tablet 1000 MG PO (11:34)
[2025-01-24] MEDS: Ferrous Sulfate 325 MG Tablet PO (11:34)
[2025-01-24 17:11] LABS: Bedside Glucose 92 mg/dL (74-106)
[2025-01-24] MEDS: metFORMIN HCl 500 MG Tablet PO (17:18)
[2025-01-24] MEDS: 0.9% Saline Lock 10 ML Syringe IV (21:14)
[2025-01-24] MEDS: Latanoprost 0.005% 1 Bottle 0.005 DRP EACH EYE (21:14)
[2025-01-24] MEDS: MELATONIN 3 MG TABLET PO (21:17)
[2025-01-24] MEDS: Atorvastatin Calcium 40 MG Tablet PO (21:17)
[2025-01-25 01:39] VITALS: BMI 34.4
[2025-01-25 06:00] VITALS: BP 132/74; PULSE 56; RESP 16; TEMP 36.4; O2SAT 96
[2025-01-25] MEDS: Pyridoxine HCl 50 MG Tablet PO ×2 (06:01→18:04)
[2025-01-25] MEDS: Enoxaparin 40 MG/0.4 ML Syringe SC (06:01)
[2025-01-25] MEDS: Levothyroxine 100 MCG Tablet PO (06:01)
[2025-01-25] MEDS: tiZANidine HCl 2 MG Tablet PO ×2 (06:01→18:04)
[2025-01-25 07:22] LABS: Bedside Glucose 107 mg/dL (74-106)
[2025-01-25 10:20] VITALS: PULSE 70
[2025-01-25] MEDS: Losartan Potassium 100 MG Tablet PO (10:20)
[2025-01-25] MEDS: Aspirin E.C. 81 MG Tablet PO (10:20)
[2025-01-25] MEDS: Multivitamins,Therapeutic Tablet 1 TABLET PO (10:20)
[2025-01-25] MEDS: Metoprolol Tartrate 25 MG Tablet 12.5 MG PO ×2 (10:20→20:06)
[2025-01-25] MEDS: Pantoprazole Sodium 40 MG Tablet PO (10:20)
[2025-01-25] MEDS: Sertraline 50 MG Tablet PO (10:20)
[2025-01-25] MEDS: Ascorbic Acid 500 MG Tablet 1000 MG PO (12:05)
[2025-01-25] MEDS: Ferrous Sulfate 325 MG Tablet PO (12:06)
[2025-01-25 16:21] LABS: Bedside Glucose 153 mg/dL (74-106)
[2025-01-25 17:00] VITALS: BMI 34.4
[2025-01-25 18:00] VITALS: BP 127/78; PULSE 66; RESP 17; TEMP 37.2; O2SAT 96
[2025-01-25] MEDS: metFORMIN HCl 500 MG Tablet PO (18:03)
[2025-01-25] MEDS: Atorvastatin Calcium 40 MG Tablet PO (20:05)
[2025-01-25 20:06] VITALS: PULSE 66
[2025-01-25] MEDS: Latanoprost 0.005% 1 Bottle 0.005 DRP EACH EYE (20:06)
[2025-01-25] MEDS: MELATONIN 3 MG TABLET PO (20:06)
[2025-01-25 23:07] VITALS: BMI 34.4
[2025-01-26 06:00] VITALS: BP 147/80; PULSE 64; RESP 18; TEMP 36.7; O2SAT 98
[2025-01-26] MEDS: Enoxaparin 40 MG/0.4 ML Syringe SC (06:33)
[2025-01-26] MEDS: Levothyroxine 50 MCG Tablet PO (06:33)
[2025-01-26 07:59] LABS: Bedside Glucose 158 mg/dL (74-106)
[2025-01-26] MEDS: tiZANidine HCl 2 MG Tablet PO (07:59)
[2025-01-26] MEDS: Pyridoxine HCl 50 MG Tablet PO ×2 (07:59→18:30)
[2025-01-26] MEDS: Multivitamins,Therapeutic Tablet 1 TABLET PO (07:59)
[2025-01-26] MEDS: Aspirin E.C. 81 MG Tablet PO (07:59)
[2025-01-26] MEDS: Pantoprazole Sodium 40 MG Tablet PO (07:59)
[2025-01-26 08:00] VITALS: PULSE 64
[2025-01-26] MEDS: Losartan Potassium 100 MG Tablet PO (08:00)
[2025-01-26] MEDS: Metoprolol Tartrate 25 MG Tablet 12.5 MG PO ×2 (08:00→21:00)
[2025-01-26] MEDS: Sertraline 50 MG Tablet PO (08:00)
--- NOTE | 2025-01-26 11:01 | PCM.PROGNOTE ---
Subjective Subjective Steven was seen on team rounds today. His Muriel was present in the room. she will be able to linotype worker and provide assistance to Steven. She will be coming in prior to his DC to see if she will be able to provide the amount of assistance he will need. Afebrile VSS - Maintaining appropriate oxygen saturation on RA Oral intake - FOOD good FLUIDS good The blood sugar record was reviewed. Blood sugars are well-controlled with no blood sugars over 160 and no hypoglycemia. Discussed with nursing - no problems that need addressed Reviewed the THERAPY notes Medication list reviewed. C/O diarrhea but, he had 1 BM recorded for Sunday, none Sunday and 1 on Sunday. Continues to complain of cramps in the right hand, left abdomen and not so much in the right leg anymore. He denies pain in the right upper extremity when his hand is not clenched. He is complaining of loose stool. Nursing documented a large soft stool yesterday. Denies N/V/epigastric pain, heartburn. He has pain in the LUE at the medial elbow........had an IV last week for Iron sucrose. HL was discontinued. Denies chills, sweats. Objective Data Objective Data Vital Signs: Vital Signs Temp Pulse Resp BP Pulse Ox O2 Del Method FiO2 98.0 F 64 18 147/80 H 98 Room Air 21 01/26/25 06:00 01/26/25 08:00 01/26/25 06:00 01/26/25 06:00 01/26/25 06:00 01/26/25 06:00 01/16/25 20:19 Oxygen Delivery Method Room Air Weight: 247 lb 2.211 oz Body Mass Index (BMI) 34.4 Intake & Output: Intake and Output for Last 24 Hours 01/24/25 01/25/25 01/26/25 23:59 23:59 23:59 Intake Total 1979 / 1979 1568.5 / 1568.5 Output Total 650 / 650 850 / 1025 400 / 400 Balance 1330 / 1330 718.5 / 543.5 -400 / -400 Lab / Micro Data 01/23/25 10:12 01/23/25 10:12 Labs: Laboratory Results - last 24 hr 01/25/25 16:02: POC Glucose 153 H 01/26/25 07:41: POC Glucose 158 H Micro: Microbiology 01/17/25 12:25 Stool Stool Occult Blood (LAWSON) - Final Physical Exam Const alert and oriented x3 General Appearance: cooperative Resp normal respiratory effort, normal air movement and clear to auscultation bilaterally Cardio regular rate, regular rhythm, no murmurs, no rub and no gallops Cardio Narrative: No ectopy GI normal to inspection, nondistended, normoactive bowel sounds, soft to palpation and non-tender GI Narrative: no guarding with palpation. Extremity no calf tenderness Extremity Narrative: The left elbow medially is swollen with redness and increased warmth to touch. It is tender to palpation. site of previous IC which has been removed. Skin Rashes: no rashes Psych Psych Narrative: Affect is more flat this week. 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 transplanted heart: [place] heart Qualified Code(s): I25.10 - Atherosclerotic heart disease of [place] coronary artery without angina pectoris (13) History of coronary artery stent placement: (14) Concentric left ventricular hypertrophy: (15) Grade I diastolic dysfunction: (16) GERD (gastroesophageal reflux disease): QUALIFIERS: Esophagitis presence: without esophagitis Qualified Code(s): K21.9 - Gastro-esophageal reflux disease without esophagitis (17) Reactive depression: (18) Pseudobulbar affect: (19) Superficial thrombophlebitis of arm: QUALIFIERS: Laterality: left Qualified Code(s): I80.8 - Phlebitis and thrombophlebitis of other sites PLAN: Plan 1. Continue therapy 2. Increase tizanidine to 4 mg at 7 AM and 9 PM daily....consider discontinuing B vitamin........does not seem to be helping with cramps. 3. Venous US of the LUE for suspected superficial DVT. 4. Warm compresses to the LUE elbow. 5. Continue Ozempic and Metformin - blood sugars are well controlled. 6. Weekly wts on Sunday 7. Increase Sertraline to 100 mg. Charges/Coding Visit Charges Inpatient E&M: 61660 Subs Hosp L2
--- NOTE | 2025-01-26 11:03 | VDUE_ITS ---
Reason For Study Reason For Study: LUE Swelling Left Proximal Left jugular vein is spontaneous, widely patent, phasic, with no intraluminal echogenicity noted. Left subclavian vein is spontaneous, widely patent, phasic, with no intraluminal echogenicity noted. Left Arm Left axillary vein is spontaneous, patent, phasic, competent, compressible and demonstrates augmentation. Left brachial vein is compressible. Left cephalic vein is compressible. Lt Basilic vein appears compressible. Lt Basilic Branch appears dilated and NONCOMPRESSIBLE with intraluminal echoes noted. Finding is consistent with ACUTE SVT. Left Lower Arm Left radial vein is compressible. Left ulnar vein is compressible. Procedure This was a unilateral left upper extremity venous doppler examination. Study is diagnostic Study was performed bedside in patient room. Preliminary Results delivered to infrastructure consultantBUSHRA Ahuja. VL/Venous Duplex US, Unilateral Interpretation Summary Deep veins of the left upper extremity are patent and compressible segmentally. There is no evidence of deep vein thrombosis. Acute superficial thrombophlebitis is noted in a branch of the left basilic vein. The left basilic and cephalic veins are patent and compressible. Ordering Physician: Vinita Donohue Referring Physician: Joi Gill Performed By: Steven Hook RVT ???
[2025-01-26 12:58] VITALS: BMI 34.4
--- NOTE | 2025-01-26 13:25 | CASEMGMT ---
Team meeting held today with pt and pt's present. PT/OT/ST/SN provided updates and pt is making good progress with therapy. SW updated that insurance NRD is 01/27 and continued stay is not guaranteed. 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 Pt would benefit from continued Rehab unit stay. Will continue with treatment plan at this time and ReTeam next week. ROMEO Tay
[2025-01-26] MEDS: Ferrous Sulfate 325 MG Tablet PO (13:57)
[2025-01-26] MEDS: Ascorbic Acid 500 MG Tablet 1000 MG PO (13:57)
[2025-01-26 17:01] LABS: Bedside Glucose 130 mg/dL (74-106)
[2025-01-26 18:00] VITALS: BP 131/69; PULSE 67; RESP 18; TEMP 36.3; O2SAT 98
[2025-01-26] MEDS: metFORMIN HCl 500 MG Tablet PO (18:30)
[2025-01-26 19:45] VITALS: PULSE 67; RESP 18; O2SAT 98; BMI 34.4
[2025-01-26] MEDS: tiZANidine HCl 2 MG Tablet 4 MG PO (20:57)
[2025-01-26] MEDS: Atorvastatin Calcium 40 MG Tablet PO (20:59)
[2025-01-26 21:00] VITALS: BP 117/65; PULSE 59
[2025-01-26] MEDS: MELATONIN 3 MG TABLET PO (21:00)
[2025-01-26] MEDS: Latanoprost 0.005% 1 Bottle 0.005 DRP EACH EYE (21:00)
[2025-01-27 06:00] VITALS: BP 128/73; PULSE 66; RESP 17; TEMP 36.3; O2SAT 100; BMI 34.4
[2025-01-27] MEDS: Levothyroxine 50 MCG Tablet PO (06:43)
[2025-01-27] MEDS: tiZANidine HCl 2 MG Tablet 4 MG PO ×2 (06:43→21:20)
[2025-01-27] MEDS: Pyridoxine HCl 50 MG Tablet PO ×2 (06:43→16:58)
[2025-01-27] MEDS: Enoxaparin 40 MG/0.4 ML Syringe SC (06:43)
[2025-01-27 07:23] LABS: Bedside Glucose 124 mg/dL (74-106)
[2025-01-27 09:18] VITALS: PULSE 66
[2025-01-27] MEDS: Metoprolol Tartrate 25 MG Tablet 12.5 MG PO ×2 (09:18→21:22)
[2025-01-27] MEDS: Multivitamins,Therapeutic Tablet 1 TABLET PO (09:18)
[2025-01-27] MEDS: Losartan Potassium 100 MG Tablet PO (09:18)
[2025-01-27] MEDS: Aspirin E.C. 81 MG Tablet PO (09:18)
[2025-01-27] MEDS: Sertraline 100 MG Tablet PO (09:18)
[2025-01-27] MEDS: Pantoprazole Sodium 40 MG Tablet PO (09:18)
[2025-01-27 10:00] VITALS: PULSE 60; RESP 17
--- NOTE | 2025-01-27 10:07 | PN_ITS ---
Subjective Subjective Afebrile VSS - Maintaining appropriate oxygen saturation on RA Oral intake - FOOD good FLUIDS good Weight today is 247 pounds and 5.7 ounces. This is down 9 pounds over the past week. Blood sugars are under excellent control with no hypoglycemia. Last bowel movement was 01/25/2025. Discussed with nursing - no problems that need addressed Reviewed the THERAPY notes Medication list reviewed. Denies nausea/vomiting/epigastric pain/heartburn/bloating. Continues to c/o cramping/pain in the RUE even with the increase in the Tizanidine at HS. It wakes him up several times at night. Not c/o cramping in his abd today or the R calf. Denies lightheadedness and CP. No calf pain. Less emotional lability today. Not quite as flat and more engaged. Objective Data Objective Data Vital Signs: Vital Signs Temp Pulse Resp BP Pulse Ox O2 Del Method FiO2 97.3 F L 66 17 128/73 H 100 Room Air 21 01/27/25 06:00 01/27/25 09:18 01/27/25 06:00 01/27/25 06:00 01/27/25 06:00 01/27/25 06:00 01/16/25 20:19 Oxygen Delivery Method Room Air Weight: 247 lb 5.738 oz Body Mass Index (BMI) 34.4 Intake & Output: Intake and Output for Last 24 Hours 01/25/25 01/26/25 01/27/25 23:59 23:59 23:59 Intake Total 1568.5 / 1568.5 1010 / 1010 400 / 400 Output Total 850 / 1025 1126 / 1126 100 / 100 Balance 718.5 / 543.5 -116 / -116 300 / 300 Lab / Micro Data 01/23/25 10:12 01/23/25 10:12 Labs: Laboratory Results - last 24 hr 01/26/25 16:43: POC Glucose 130 H 01/27/25 06:48: POC Glucose 124 H Micro: Microbiology 01/17/25 12:25 Stool Stool Occult Blood (LAWSON) - Final Physical Exam Const alert and oriented x3 General Appearance: cooperative Resp normal respiratory effort, normal air movement and clear to auscultation bilaterally Cardio regular rate and regular rhythm Cardio Narrative: No ectopy GI normal to inspection, nondistended, normoactive bowel sounds, soft to palpation and non-tender GI Narrative: no guarding with palpation. Extremity no calf tenderness Extremity Narrative: The erythema of the left medial elbow is much improved today. It is not as warm to touch and the pain is somewhat better. The Vein is still firm and palpable. Skin Rashes: no rashes Psych Psych Narrative: Affect is more flat this week. Assessment & Plan Assessment/Plan (1) Physical debility: (2) Acute cerebrovascular accident (CVA): (3) Acute right hemiparesis: (4) Facial droop due to acute stroke: (5) Oropharyngeal dysphagia: (6) Dysarthria: (7) Paresthesia: (8) Microcytic anemia: (9) Type 2 diabetes mellitus: QUALIFIERS: Diabetes mellitus senior qc technician insulin use: without mcfp use Diabetes mellitus complication status: with other specified complication Qualified Code(s): E11.69 - Type 2 diabetes mellitus with other specified complication (10) Essential hypertension: (11) Hyperlipemia: QUALIFIERS: Hyperlipidemia type: unspecified Qualified Code(s): E 78.5 - Hyperlipidemia, unspecified (12) Atherosclerotic heart disease of [place] coronary artery without angina pectoris: QUALIFIERS: [place] vs. transplanted heart: [place] heart Qualified Code(s): I25.10 - Atherosclerotic heart disease of [place] coronary artery without angina pectoris (13) History of coronary artery stent placement: (14) Concentric left ventricular hypertrophy: (15) Grade I diastolic dysfunction: (16) GERD (gastroesophageal reflux disease): QUALIFIERS: Esophagitis presence: without esophagitis Qualified Code(s): K21.9 - Gastro-esophageal reflux disease without esophagitis (17) Reactive depression: (18) Pseudobulbar affect: (19) Superficial thrombophlebitis of arm: QUALIFIERS: Laterality: left Qualified Code(s): I80.8 - Phlebitis and thrombophlebitis of other sites (20) Central neuropathic pain: PLAN: Plan 1. Continue therapy 2. Add Gabapentin to the current drug regimen for central neuropathic pain. Continue the Tizanidine for now but, if the Gabapentin is effective will taper Tizanidine off. Continue pyridoxine. 3. Recheck labs on Sunday. 4. continue Ozempic Charges/Coding Visit Charges Inpatient E&M: 46444 [facility] Hosp L2
[2025-01-27] MEDS: Ferrous Sulfate 325 MG Tablet PO (12:29)
[2025-01-27] MEDS: Ascorbic Acid 500 MG Tablet 1000 MG PO (12:29)
[2025-01-27 15:06] VITALS: BMI 34.4
[2025-01-27 16:59] LABS: Bedside Glucose 124 mg/dL (74-106)
[2025-01-27] MEDS: metFORMIN HCl 500 MG Tablet PO (17:00)
[2025-01-27] MEDS: Gabapentin 100 MG Capsule 200 MG PO (17:00)
[2025-01-27 18:00] VITALS: BP 138/77; PULSE 64; RESP 16; TEMP 37; O2SAT 99
[2025-01-27 21:10] VITALS: BP 110/83; PULSE 81; RESP 16; O2SAT 99; BMI 34.4
[2025-01-27] MEDS: MELATONIN 3 MG TABLET PO (21:20)
[2025-01-27] MEDS: Gabapentin 400 MG Capsule PO (21:20)
[2025-01-27] MEDS: Atorvastatin Calcium 40 MG Tablet PO (21:20)
[2025-01-27 21:22] VITALS: BP 110/83; PULSE 81
[2025-01-27] MEDS: Latanoprost 0.005% 1 Bottle 0.005 DRP EACH EYE (21:23)
[2025-01-28] MEDS: Levothyroxine 50 MCG Tablet PO (05:51)
[2025-01-28] MEDS: Enoxaparin 40 MG/0.4 ML Syringe SC (05:51)
[2025-01-28 06:00] VITALS: BP 129/66; PULSE 58; RESP 16; TEMP 36; O2SAT 98
[2025-01-28] MEDS: tiZANidine HCl 2 MG Tablet 4 MG PO ×2 (06:36→21:07)
[2025-01-28] MEDS: Pyridoxine HCl 50 MG Tablet PO ×2 (06:36→17:07)
[2025-01-28 06:54] LABS: Bedside Glucose 124 mg/dL (74-106)
[2025-01-28] MEDS: Aspirin E.C. 81 MG Tablet PO (08:11)
[2025-01-28] MEDS: Pantoprazole Sodium 40 MG Tablet PO (08:11)
[2025-01-28] MEDS: Sertraline 100 MG Tablet PO (08:11)
[2025-01-28] MEDS: Gabapentin 100 MG Capsule 200 MG PO ×2 (08:11→17:07)
[2025-01-28] MEDS: Losartan Potassium 100 MG Tablet PO (08:12)
[2025-01-28] MEDS: Ergocalciferol 1.25 MG (50, 000 UNIT) Capsule PO (08:12)
[2025-01-28] MEDS: Multivitamins,Therapeutic Tablet 1 TABLET PO (08:12)
[2025-01-28] MEDS: SEMAGLUTIDE 0.25 MG/0.368 ML PEN.INJCTR SQ (08:13)
[2025-01-28 08:16] VITALS: PULSE 69
[2025-01-28] MEDS: Metoprolol Tartrate 25 MG Tablet 12.5 MG PO ×2 (08:16→21:07)
[2025-01-28 09:09] VITALS: BP 110/68; PULSE 69
--- NOTE | 2025-01-28 12:11 | PCM.PROGNOTE ---
Subjective Subjective Afebrile Blood pressure is at goal and well-controlled. Heart rate is within normal limits Maintaining appropriate oxygen saturation on room air The blood sugar record was reviewed and the blood sugars are under excellent control. He had an Ozempic injection today. Slept better last night. He did not complain of his right hand cramping today when I saw him. He also did not complain of abdominal cramping or right leg cramping. He is not complaining of being overly sleepy today with the addition of gabapentin to the drug regimen. Had a bowel movement yesterday. The pain in the left antecubital fossa is better today. He tells me that he is not having crying/laughing episodes much.......mood is more consistent/ Affect is still a little flat but, I suspect this is his personality. He is thinking about changes he is going to make in his cooking at home. Going to use fresh vegetables and cook his meals rather than eating frozen lasagna. Recognizes that he can still have pizza from [employer] but, will limit to 1-2 pieces and will plan for this so he decreases carbs at the other 2 meals for that day. Seems to be more aware of the changes he can make to decrease the risk for strokes going forward. More positive in his thinking today. Objective Data Objective Data Vital Signs: Vital Signs Temp Pulse Resp BP Pulse Ox O2 Del Method FiO2 96.8 F L 69 16 110/68 98 Room Air 21 01/28/25 06:00 01/28/25 09:09 01/28/25 06:00 01/28/25 09:09 01/28/25 06:00 01/28/25 06:00 01/16/25 20:19 Oxygen Delivery Method Room Air Weight: 247 lb 5.738 oz Body Mass Index (BMI) 34.4 Intake & Output: Intake and Output for Last 24 Hours 01/26/25 01/27/25 01/28/25 23:59 23:59 23:59 Intake Total 1010 / 1010 1500 / 1500 440 / 440 Output Total 1126 / 1126 1116 / 1116 725 / 725 Balance -116 / -116 384 / 384 -285 / -285 Lab / Micro Data 01/23/25 10:12 01/23/25 10:12 Labs: Laboratory Results - last 24 hr 01/27/25 16:38: POC Glucose 124 H 01/28/25 06:33: POC Glucose 124 H Micro: Microbiology 01/17/25 12:25 Stool Stool Occult Blood (LAWSON) - Final Physical Exam Const alert and oriented x3 General Appearance: cooperative Resp normal respiratory effort, normal air movement and clear to auscultation bilaterally Cardio regular rate and regular rhythm Cardio Narrative: No ectopy GI normal to inspection, nondistended, normoactive bowel sounds, soft to palpation and non-tender GI Narrative: no guarding with palpation. Extremity no calf tenderness Skin Skin Narrative: Minimal erythema of the left elbow today and mild increased warmth to touch. the vein is still hard/thrombosed but, less inflammation. Rashes: no rashes Neuro Neuro Narrative: Moving the RLE forward on his own and using the HW to ambulate. Psych Psych Narrative: Has a more positive attitude today. 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 transplanted heart: [place] heart Qualified Code(s): I25.10 - Atherosclerotic heart disease of [place] coronary artery without angina pectoris (13) History of coronary artery stent placement: (14) Concentric left ventricular hypertrophy: (15) Grade I diastolic dysfunction: (16) GERD (gastroesophageal reflux disease): QUALIFIERS: Esophagitis presence: without esophagitis Qualified Code(s): K21.9 - Gastro-esophageal reflux disease without esophagitis (17) Reactive depression: (18) Pseudobulbar affect: (19) Superficial thrombophlebitis of arm: QUALIFIERS: Laterality: left Qualified Code(s): I80.8 - Phlebitis and thrombophlebitis of other sites (20) Central neuropathic pain: PLAN: Plan 1. Continue therapy 2. Discontinue Glucophage and continue to monitor Accu-Cheks twice daily 3. Consider discontinuing pyridoxine in the next few days if the hypertonicity in the right upper extremity continues to be in good control with Tizanidine and Gabapentin. Charges/Coding Visit Charges Inpatient E&M: 97789 Subs Hosp L1
[2025-01-28] MEDS: Ferrous Sulfate 325 MG Tablet PO (12:24)
[2025-01-28] MEDS: Ascorbic Acid 500 MG Tablet 1000 MG PO (12:24)
[2025-01-28 16:10] VITALS: BMI 34.4
[2025-01-28 16:40] LABS: Bedside Glucose 118 mg/dL (74-106)
[2025-01-28 16:54] VITALS: BP 118/67; PULSE 63; RESP 17; TEMP 35.9; O2SAT 99
[2025-01-28 19:00] VITALS: BP 114/65; PULSE 61; RESP 17; O2SAT 99; BMI 34.4
[2025-01-28 21:07] VITALS: BP 114/65; PULSE 61
[2025-01-28] MEDS: Gabapentin 400 MG Capsule PO (21:08)
[2025-01-28] MEDS: Atorvastatin Calcium 40 MG Tablet PO (21:08)
[2025-01-28] MEDS: MELATONIN 3 MG TABLET PO (21:10)
[2025-01-28] MEDS: Latanoprost 0.005% 1 Bottle 0.005 DRP EACH EYE (21:10)
[2025-01-29 06:00] VITALS: BP 130/82; PULSE 64; RESP 16; TEMP 35.9; O2SAT 96
[2025-01-29] MEDS: Levothyroxine 50 MCG Tablet PO (06:25)
[2025-01-29] MEDS: Enoxaparin 40 MG/0.4 ML Syringe SC (06:25)
[2025-01-29] MEDS: tiZANidine HCl 2 MG Tablet 4 MG PO ×2 (06:26→21:02)
[2025-01-29] MEDS: Pyridoxine HCl 50 MG Tablet PO ×2 (06:26→17:14)
[2025-01-29 07:09] LABS: Bedside Glucose 119 mg/dL (74-106)
[2025-01-29 08:42] VITALS: PULSE 64
[2025-01-29] MEDS: Sertraline 100 MG Tablet PO (08:42)
[2025-01-29] MEDS: Multivitamins,Therapeutic Tablet 1 TABLET PO (08:42)
[2025-01-29] MEDS: Pantoprazole Sodium 40 MG Tablet PO (08:42)
[2025-01-29] MEDS: Metoprolol Tartrate 25 MG Tablet 12.5 MG PO ×2 (08:42→21:02)
[2025-01-29] MEDS: Gabapentin 100 MG Capsule 200 MG PO ×2 (08:43→17:15)
[2025-01-29] MEDS: Losartan Potassium 100 MG Tablet PO (08:43)
[2025-01-29] MEDS: Aspirin E.C. 81 MG Tablet PO (08:43)
[2025-01-29] MEDS: Ascorbic Acid 500 MG Tablet 1000 MG PO (12:10)
[2025-01-29] MEDS: Ferrous Sulfate 325 MG Tablet PO (12:10)
[2025-01-29 13:28] VITALS: BMI 34.4
[2025-01-29 16:41] LABS: Bedside Glucose 103 mg/dL (74-106)
[2025-01-29 18:21] VITALS: BP 115/64; PULSE 70; RESP 17; TEMP 36.2; O2SAT 99
[2025-01-29 20:58] VITALS: BP 112/77; PULSE 64; RESP 16
[2025-01-29 21:02] VITALS: BP 112/77; PULSE 64
[2025-01-29] MEDS: Gabapentin 400 MG Capsule PO (21:02)
[2025-01-29] MEDS: Atorvastatin Calcium 40 MG Tablet PO (21:02)
[2025-01-29] MEDS: MELATONIN 3 MG TABLET PO (21:02)
[2025-01-29] MEDS: Latanoprost 0.005% 1 Bottle 0.005 DRP EACH EYE (21:03)
[2025-01-30 03:06] VITALS: BMI 34.4
[2025-01-30] MEDS: Enoxaparin 40 MG/0.4 ML Syringe SC (05:52)
[2025-01-30] MEDS: Levothyroxine 50 MCG Tablet PO (05:52)
[2025-01-30 05:55] VITALS: BP 123/82; PULSE 60; RESP 17; TEMP 36.7; O2SAT 97
[2025-01-30] MEDS: tiZANidine HCl 2 MG Tablet 4 MG PO ×2 (06:35→21:21)
[2025-01-30] MEDS: Pyridoxine HCl 50 MG Tablet PO ×2 (06:35→16:05)
[2025-01-30 06:50] LABS: Bedside Glucose 116 mg/dL (74-106)
[2025-01-30 08:21] VITALS: BP 123/82; PULSE 60
[2025-01-30] MEDS: Multivitamins,Therapeutic Tablet 1 TABLET PO (08:21)
[2025-01-30] MEDS: Metoprolol Tartrate 25 MG Tablet 12.5 MG PO ×2 (08:21→21:21)
[2025-01-30] MEDS: Pantoprazole Sodium 40 MG Tablet PO (08:21)
[2025-01-30] MEDS: Sertraline 100 MG Tablet PO (08:21)
[2025-01-30] MEDS: Aspirin E.C. 81 MG Tablet PO (08:21)
[2025-01-30] MEDS: Losartan Potassium 100 MG Tablet PO (08:21)
[2025-01-30] MEDS: Gabapentin 100 MG Capsule 200 MG PO ×2 (08:26→16:05)
[2025-01-30] MEDS: Ascorbic Acid 500 MG Tablet 1000 MG PO (12:08)
[2025-01-30] MEDS: Ferrous Sulfate 325 MG Tablet PO (12:08)
[2025-01-30 14:13] VITALS: BMI 34.4
[2025-01-30 16:42] LABS: Bedside Glucose 126 mg/dL (74-106)
[2025-01-30 18:00] VITALS: BP 115/65; PULSE 67; RESP 16; TEMP 37; O2SAT 97
[2025-01-30 21:21] VITALS: BP 120/72; PULSE 62
[2025-01-30] MEDS: MELATONIN 3 MG TABLET PO (21:21)
[2025-01-30] MEDS: Atorvastatin Calcium 40 MG Tablet PO (21:21)
[2025-01-30] MEDS: Gabapentin 400 MG Capsule PO (21:22)
[2025-01-30] MEDS: Latanoprost 0.005% 1 Bottle 0.005 DRP EACH EYE (21:22)
[2025-01-30 22:00] VITALS: PULSE 62; O2SAT 99
[2025-01-31 03:13] VITALS: BMI 34.4
[2025-01-31] MEDS: Enoxaparin 40 MG/0.4 ML Syringe SC (05:59)
[2025-01-31] MEDS: tiZANidine HCl 2 MG Tablet 4 MG PO ×2 (05:59→20:19)
[2025-01-31] MEDS: Levothyroxine 50 MCG Tablet PO (05:59)
[2025-01-31] MEDS: Pyridoxine HCl 50 MG Tablet PO ×2 (05:59→16:31)
[2025-01-31 06:00] VITALS: BP 123/73; PULSE 62; RESP 16; TEMP 36.9; O2SAT 95
[2025-01-31 07:03] LABS: Bedside Glucose 122 mg/dL (74-106)
[2025-01-31] MEDS: Aspirin E.C. 81 MG Tablet PO (08:03)
[2025-01-31] MEDS: Gabapentin 100 MG Capsule 200 MG PO ×2 (08:03→16:30)
[2025-01-31] MEDS: Multivitamins,Therapeutic Tablet 1 TABLET PO (08:04)
[2025-01-31] MEDS: Sertraline 100 MG Tablet PO (08:04)
[2025-01-31] MEDS: Losartan Potassium 100 MG Tablet PO (08:05)
[2025-01-31] MEDS: Pantoprazole Sodium 40 MG Tablet PO (08:05)
[2025-01-31 08:06] VITALS: BP 123/73; PULSE 62
[2025-01-31] MEDS: Metoprolol Tartrate 25 MG Tablet 12.5 MG PO ×2 (08:06→20:22)
[2025-01-31] MEDS: Ascorbic Acid 500 MG Tablet 1000 MG PO (12:11)
[2025-01-31] MEDS: Ferrous Sulfate 325 MG Tablet PO (12:11)
[2025-01-31 13:59] VITALS: BMI 34.4
[2025-01-31 17:02] LABS: Bedside Glucose 107 mg/dL (74-106)
[2025-01-31 17:42] VITALS: BP 136/74; PULSE 60; RESP 16; TEMP 36.4
[2025-01-31] MEDS: MELATONIN 3 MG TABLET PO (20:20)
[2025-01-31] MEDS: Atorvastatin Calcium 40 MG Tablet PO (20:20)
[2025-01-31 20:22] VITALS: BP 121/72; PULSE 61
[2025-01-31] MEDS: Latanoprost 0.005% 1 Bottle 0.005 DRP EACH EYE (20:23)
[2025-01-31] MEDS: Gabapentin 400 MG Capsule PO (20:29)
[2025-02-01 03:38] VITALS: BMI 34.4
[2025-02-01 05:57] VITALS: BP 118/77; PULSE 61; RESP 16; TEMP 36.7; O2SAT 98
[2025-02-01] MEDS: tiZANidine HCl 2 MG Tablet 4 MG PO ×2 (06:09→21:36)
[2025-02-01] MEDS: Enoxaparin 40 MG/0.4 ML Syringe SC (06:09)
[2025-02-01] MEDS: Levothyroxine 100 MCG Tablet PO (06:09)
[2025-02-01] MEDS: Pyridoxine HCl 50 MG Tablet PO ×2 (06:09→16:22)
[2025-02-01 07:36] LABS: Bedside Glucose 113 mg/dL (74-106)
[2025-02-01 08:30] VITALS: BP 118/77; PULSE 61
[2025-02-01] MEDS: Metoprolol Tartrate 25 MG Tablet 12.5 MG PO ×2 (08:30→21:36)
[2025-02-01] MEDS: Aspirin E.C. 81 MG Tablet PO (08:30)
[2025-02-01] MEDS: Pantoprazole Sodium 40 MG Tablet PO (08:30)
[2025-02-01] MEDS: Multivitamins,Therapeutic Tablet 1 TABLET PO (08:30)
[2025-02-01] MEDS: Sertraline 100 MG Tablet PO (08:30)
[2025-02-01] MEDS: Losartan Potassium 100 MG Tablet PO (08:30)
[2025-02-01] MEDS: Gabapentin 100 MG Capsule 200 MG PO ×2 (08:30→16:22)
[2025-02-01] MEDS: Ascorbic Acid 500 MG Tablet 1000 MG PO (11:34)
[2025-02-01] MEDS: Ferrous Sulfate 325 MG Tablet PO (11:34)
[2025-02-01 16:09] VITALS: BMI 34.4
[2025-02-01 16:55] LABS: Bedside Glucose 115 mg/dL (74-106)
[2025-02-01 17:49] VITALS: BP 133/63; PULSE 74; RESP 17; TEMP 36.6; O2SAT 98
[2025-02-01 21:36] VITALS: BP 124/73; PULSE 64
[2025-02-01] MEDS: Atorvastatin Calcium 40 MG Tablet PO (21:36)
[2025-02-01] MEDS: MELATONIN 3 MG TABLET PO (21:36)
[2025-02-01] MEDS: Latanoprost 0.005% 1 Bottle 0.005 DRP EACH EYE (21:37)
[2025-02-01] MEDS: Gabapentin 400 MG Capsule PO (21:42)
[2025-02-02 01:36] VITALS: BMI 34.4
[2025-02-02 06:00] VITALS: BP 133/63; PULSE 71; RESP 17; TEMP 36.7; O2SAT 98
[2025-02-02] MEDS: Enoxaparin 40 MG/0.4 ML Syringe SC (06:20)
[2025-02-02] MEDS: Levothyroxine 50 MCG Tablet PO (06:21)
[2025-02-02] MEDS: tiZANidine HCl 2 MG Tablet 4 MG PO ×2 (06:21→21:26)
[2025-02-02] MEDS: Pyridoxine HCl 50 MG Tablet PO ×2 (06:22→17:02)
[2025-02-02 07:48] LABS: Bedside Glucose 123 mg/dL (74-106)
[2025-02-02] MEDS: Pantoprazole Sodium 40 MG Tablet PO (08:22)
[2025-02-02] MEDS: Multivitamins,Therapeutic Tablet 1 TABLET PO (08:22)
[2025-02-02] MEDS: Aspirin E.C. 81 MG Tablet PO (08:22)
[2025-02-02 08:23] VITALS: BP 133/63; PULSE 71
[2025-02-02] MEDS: Gabapentin 100 MG Capsule 200 MG PO ×2 (08:23→17:03)
[2025-02-02] MEDS: Metoprolol Tartrate 25 MG Tablet 12.5 MG PO ×2 (08:23→21:29)
[2025-02-02] MEDS: Losartan Potassium 100 MG Tablet PO (08:23)
[2025-02-02] MEDS: Sertraline 100 MG Tablet PO (08:23)
--- NOTE | 2025-02-02 11:59 | PCM.PROGNOTE ---
Subjective Subjective Steven was seen on team rounds today. His Muriel participated by phone. Afebrile VSS -blood pressure is well-controlled and the heart rate is within normal Maintaining appropriate oxygen saturation on RA Oral intake - FOOD good FLUIDS good The blood sugar record was reviewed and blood sugars are under excellent control. No hypoglycemia.Discussed with nursing - no problems that need addressed Reviewed the THERAPY notes Medication list reviewed. DEnies muscle cramps today. Sleeping much better at night. Denies lightheadedness, cephalgia, cough, chest pain, shortness of breath, nausea/vomiting/abdominal pain, dysuria and calf tenderness. Objective Data Objective Data Vital Signs: Vital Signs Temp Pulse Resp BP Pulse Ox O2 Del Method FiO2 98.0 F 71 17 133/63 H 98 Room Air 21 02/02/25 06:00 02/02/25 08:23 02/02/25 06:00 02/02/25 08:23 02/02/25 06:00 02/02/25 06:00 01/16/25 20:19 Oxygen Delivery Method Room Air Weight: 247 lb 5.738 oz Body Mass Index (BMI) 34.4 Intake & Output: Intake and Output for Last 24 Hours 01/31/25 02/01/25 02/02/25 23:59 23:59 23:59 Intake Total 2230 / 2230 970 / 970 300 / 300 Output Total 1100 / 1100 1675 / 1675 525 / 525 Balance 1130 / 1130 -705 / -705 -225 / -225 Lab / Micro Data 01/23/25 10:12 01/23/25 10:12 Labs: Laboratory Results - last 24 hr 02/01/25 16:22: POC Glucose 115 H 02/02/25 07:31: POC Glucose 123 H Micro: Microbiology 01/17/25 12:25 Stool Stool Occult Blood (LAWSON) - Final Physical Exam Const alert and oriented x3 General Appearance: cooperative Resp normal respiratory effort, normal air movement and clear to auscultation bilaterally Cardio regular rate and regular rhythm Cardio Narrative: No ectopy GI normal to inspection, nondistended, normoactive bowel sounds, soft to palpation and non-tender GI Narrative: no guarding with palpation. Extremity no calf tenderness Skin Rashes: no rashes Neuro Neuro Narrative: Moving the RLE forward on his own and using the HW to ambulate. Assessment & Plan Assessment/Plan (1) Physical debility: (2) Acute cerebrovascular accident (CVA): (3) Acute right hemiparesis: (4) Facial droop due to acute stroke: (5) Oropharyngeal dysphagia: (6) Dysarthria: (7) Paresthesia: (8) Microcytic anemia: (9) Type 2 diabetes mellitus: QUALIFIERS: Diabetes mellitus intermediate manager insulin use: without intermediate manager use Diabetes mellitus complication status: with other specified complication Qualified Code(s): E11.69 - Type 2 diabetes mellitus with other specified complication (10) Essential hypertension: (11) Hyperlipemia: QUALIFIERS: Hyperlipidemia type: unspecified Qualified Code(s): E78.5 - Hyperlipidemia, unspecified (12) Atherosclerotic heart disease of [place] coronary artery without angina pectoris: QUALIFIERS: [place] vs. transplanted heart: [place] heart Qualified Code(s): I25.10 - Atherosclerotic heart disease of [place] coronary artery without angina pectoris (13) History of coronary artery stent placement: (14) Concentric left ventricular hypertrophy: (15) Grade I diastolic dysfunction: (16) GERD (gastroesophageal reflux disease): QUALIFIERS: Esophagitis presence: without esophagitis Qualified Code(s): K21.9 - Gastro-esophageal reflux disease without esophagitis (17) Reactive depression: (18) Pseudobulbar affect: (19) Superficial thrombophlebitis of arm: QUALIFIERS: Laterality: left Qualified Code(s): I80.8 - Phlebitis and thrombophlebitis of other sites (20) Central neuropathic pain: (21) Erectile dysfunction: QUALIFIERS: Erectile dysfunction type: unspecified Qualified Code(s): N52.9 - Male erectile dysfunction, unspecified PLAN: Plan 1. Continue therapy 2. Make Accu-Cheks as needed 3. Check a CBC, BMP and magnesium in the a.m. 4. Cialis 2.5 mg daily going forward. Charges/Coding Visit Charges Inpatient E&M: 86371 Subs Hosp L2
[2025-02-02] MEDS: Ferrous Sulfate 325 MG Tablet PO (12:29)
[2025-02-02] MEDS: Ascorbic Acid 500 MG Tablet 1000 MG PO (12:29)
--- NOTE | 2025-02-02 13:24 | CASEMGMT ---
Addendum entered by Joyce Mccarthy 02/03/25 08:08: SW sent referral to [employer] via Careport for Hemiwalker. Will notify once DC date is known. Original Note: Social Work IDT met with patient at bedside, then via conference call for Team meeting. Discussed patient's progress in PT/OT/ST/SN/MD. Educated to MMO CM insurance with NRD 02/03 and continued stay is not guaranteed with each review. PT noted pt lacks insight when he's fatigued and pushes through session, then compromises safety. Therapy scheduled training to begin with to prepare for DC. Pt expressed wanting to practice car tx. SW inquired about DME and therapy needs at DC. Pt will need hemiwalker and after therapy training, will determine any additional DME. Pt prefers HHC initially, then OP therapy. SW provided list of skilled HHC agencies within geographical area, INN with insurance, that include quality and resource data via CarePort guide to via text link. SW educated HHC agency will contact pt for SOC date date, but typically 2-3 days after DC, pending PCP signing orders, and insurance will determine frequency and duration of visits after SOC. SW will continue to follow for DC planning. Will ReTeam weekly. Joyce Mccarthy PROTECTION CHIEF [employer] DEALER
[2025-02-02 13:26] VITALS: BMI 34.4
[2025-02-02 18:00] VITALS: BP 116/68; PULSE 68; RESP 16; TEMP 35.8; O2SAT 98
[2025-02-02] MEDS: MELATONIN 3 MG TABLET PO (21:25)
[2025-02-02] MEDS: Latanoprost 0.005% 1 Bottle 0.005 DRP EACH EYE (21:25)
[2025-02-02] MEDS: Atorvastatin Calcium 40 MG Tablet PO (21:26)
[2025-02-02 21:29] VITALS: BP 135/73; PULSE 64
[2025-02-02] MEDS: Gabapentin 400 MG Capsule PO (21:29)
[2025-02-03 04:03] VITALS: BMI 34.4
[2025-02-03] MEDS: Enoxaparin 40 MG/0.4 ML Syringe SC (05:41)
[2025-02-03] MEDS: Levothyroxine 50 MCG Tablet PO (05:41)
[2025-02-03 05:56] LABS: Hemoglobin 13.2 g/dL (13.0-16.5); Mean Corp Hgb Conc 32.2 g/dL (32-36); Mean Corpuscular Hgb 26.1 pg (27.0-32.0); Mean Corpuscular Volume 81.2 fL (80-94); Mean Platelet Vol. 10.2 fl (6.2-12.0); Platelet Count 344 K/mm3 (150-450); RBC Distribution Width CV 15.9 % (11.6-14.6); RBC Distribution Width SD 46.8 fl (35.1-43.9); Red Blood Count 5.05 M/mm3 (4.6-6.2); White Blood Count 10.9 K/mm3 (4.4-11.0)
[2025-02-03 06:00] VITALS: BP 123/74; PULSE 60; RESP 18; TEMP 36.5; O2SAT 98
[2025-02-03 06:32] LABS: Anion Gap 12 (5-15); BUN 12 mg/dL (4-19); BUN/Creat Ratio 13.2 RATIO (10-20); Calcium,Total 9.7 mg/dL (7.6-11.0); Carbon Dioxide 24.1 mmol/L (21.0-32.0); Chloride 99 mmol/L (98-108); Creatinine, Serum 0.87 mg/dL (0.70-1.20); EST Glomerular Filtration Rate 98 (>60); Estimated Creatinine Clearance 112.14 ml/min (50-250); Glucose 104 mg/dL (70-99); Magnesium 2.2 mg/dL (1.5-2.2); Potassium 4.5 mmol/L (3.3-5.1); Sodium Level 135 mmol/L (133-145)
[2025-02-03] MEDS: Pyridoxine HCl 50 MG Tablet PO ×2 (07:50→16:52)
[2025-02-03] MEDS: tiZANidine HCl 2 MG Tablet 4 MG PO ×2 (07:51→19:58)
[2025-02-03] MEDS: Aspirin E.C. 81 MG Tablet PO (07:52)
[2025-02-03] MEDS: Gabapentin 100 MG Capsule 200 MG PO ×2 (07:54→16:52)
[2025-02-03 09:32] VITALS: BP 123/74; PULSE 60
[2025-02-03] MEDS: Losartan Potassium 100 MG Tablet PO (09:32)
[2025-02-03] MEDS: Metoprolol Tartrate 25 MG Tablet 12.5 MG PO ×2 (09:32→20:03)
[2025-02-03] MEDS: Sertraline 100 MG Tablet PO (09:34)
[2025-02-03] MEDS: Pantoprazole Sodium 40 MG Tablet PO (09:34)
[2025-02-03] MEDS: Multivitamins,Therapeutic Tablet 1 TABLET PO (09:34)
[2025-02-03 11:41] VITALS: BMI 34.0
[2025-02-03] MEDS: Ferrous Sulfate 325 MG Tablet PO (11:57)
[2025-02-03] MEDS: Ascorbic Acid 500 MG Tablet 1000 MG PO (11:57)
--- NOTE | 2025-02-03 14:29 | PCM.PROGNOTE ---
Subjective Subjective Afebrile VSS -blood pressure is well-controlled and at goal. Maintaining appropriate oxygen saturation on RA Oral intake - FOOD good FLUIDS good Blood sugar record was reviewed and the blood sugars are under excellent control. He has lost an additional 3 pounds in the past week. Weight at arrival to rehab was 256 pounds and 13 ounces and today it is 244 pounds and 2 ounces. Discussed with nursing - no problems that need addressed Reviewed the THERAPY notes Medication list reviewed. All lab drawn this morning was personally reviewed. BMP is unremarkable with a sodium of 135, potassium of 4.5, BUN of 12 and a creatinine of 0.87. Calcium is normal and the magnesium is also normal at 2.2. The white blood cell count is normal and hemoglobin is stable at 13.2. Platelets are within normal limits. Steven denies lightheadedness, vertigo, CP, SOB at rest, SOB with exertion, cough, nausea, vomiting, abd pain, diarrhea, constipation, dysuria, calf pain and ankle swelling. He is no longer complaining of cramping in the R leg or in the RUE. Sleeping well at night. Good appetite. Objective Data Objective Data Vital Signs: Vital Signs Temp Pulse Resp BP Pulse Ox O2 Del Method FiO2 97.7 F L 60 18 123/74 H 98 Room Air 21 02/03/25 06:00 02/03/25 09:32 02/03/25 06:00 02/03/25 09:32 02/03/25 06:00 02/03/25 06:00 01/16/25 20:19 Oxygen Delivery Method Room Air Weight: 244 lb 2 oz Body Mass Index (BMI) 34.0 Intake & Output: Intake and Output for Last 24 Hours 02/01/25 02/02/25 02/03/25 23:59 23:59 23:59 Intake Total 970 / 970 1210 / 1610 1730 / 1730 Output Total 1675 / 1675 1225 / 1700 775 / 775 Balance -705 / -705 -15 / -90 955 / 955 Lab / Micro Data 02/03/25 05:30 02/03/25 05:30 Labs: Laboratory Results - last 24 hr 02/03/25 05:30: WBC 10.9, RBC 5.05, Hgb 13.2, Hct 41.0, MCV 81.2, MCH 26.1 L, MCHC 32.2, RDW Std Deviation 46.8 H, RDW Coeff of [place] 15.9 H, Plt Count 344, MPV 10.2, Sodium 135, Potassium 4.5, Chloride 99, Carbon Dioxide 24.1, Anion Gap 12, BUN 12, Creatinine 0.87, Estim Creat Clear Calc 112.14, Est GFR (MDRD) Non-Af 98, BUN/Creatinine Ratio 13.2, Glucose 104 H, Calcium 9.7, Magnesium 2.2 Micro: Microbiology 01/17/25 12:25 Stool Stool Occult Blood ([facility]WSON) - Final Physical Exam Const alert and oriented x3 General Appearance: cooperative Resp normal respiratory effort, normal air movement and clear to auscultation bilaterally Cardio regular rate and regular rhythm Cardio Narrative: No ectopy GI normal to inspection, nondistended, normoactive bowel sounds, soft to palpation and non-tender GI Narrative: no guarding with palpation. Extremity no calf tenderness Skin Rashes: no rashes Neuro Neuro Narrative: Moving the RLE forward on his own and using the HW to ambulate. Ambulated 80' today. the R knee is still soft and tends to buckle, judith when he fatigues. D/W PT and he will need a custom AFO for the RLE to supprot the R ankle and the R knee. Assessment & Plan Assessment/Plan (1) Physical debility: (2) Acute cerebrovascular accident (CVA): (3) Acute right hemiparesis: (4) Facial droop due to acute stroke: (5) Oropharyngeal dysphagia: (6) Dysarthria: (7) Paresthesia: (8) Microcytic anemia: (9) Type 2 diabetes mellitus: QUALIFIERS: Diabetes mellitus director long term care insulin use: without director long term care use Diabetes mellitus complication status: with other specified complication Qualified Code(s): E11.69 - Type 2 diabetes mellitus with other specified complication (10) Essential hypertension: (11) Hyperlipemia: QUALIFIERS: Hyperlipidemia type: unspecified Qualified Code(s): E78.5 - Hyperlipidemia, unspecified (12) Atherosclerotic heart disease of [place] coronary artery without angina pectoris: QUALIFIERS: [place] vs. transplanted heart: [place] heart Qualified Code(s): I25.10 - Atherosclerotic heart disease of [place] coronary artery without angina pectoris (13) History of coronary artery stent placement: (14) Concentric left ventricular hypertrophy: (15) Grade I diastolic dysfunction: (16) GERD (gastroesophageal reflux disease): QUALIFIERS: Esophagitis presence: without esophagitis Qualified Code(s): K21.9 - Gastro-esophageal reflux disease without esophagitis (17) Reactive depression: (18) Pseudobulbar affect: (19) Superficial thrombophlebitis of arm: QUALIFIERS: Laterality: left Qualified Code(s): I80.8 - Phlebitis and thrombophlebitis of other sites (20) Central neuropathic pain: (21) Erectile dysfunction: QUALIFIERS: Erectile dysfunction type: unspecified Qualified Code(s): N52.9 - Male erectile dysfunction, unspecified PLAN: Plan 1. Continue therapy. 2. We received notification that his insurance company has cut him and he will need to be discharged. I called to schedule a peer to peer review and have left 2 messages but, have not received a call back and their office closes at 4 PM. Will call again in the AM......the office opens at 9 AM. 3. Steven's is coming in for family training tomorrow to see if she will be able to provide the amount of assistance he will need if he goes home. PT worked with him on car transfers today and he is not yet safe to do a car transfer. He has made good progress but, he is not quite safe yet for DC home.......I think in another few days we could have him ready to go home with his and [facility]. I expect to be able to DC him or Sunday. 4. Emotional lability is much improved with Sertraline and he is no longer having inappropriate laughing and crying. 5. Will need to follow up with PCP, neurology and cardiology (to review the 30 day event monitor) post DC from rehab. 6. He has been in NSR every time I have examined him on rehab. Charges/Coding Visit Charges Inpatient E&M: 45524 Subs Hosp L1
[2025-02-03 16:16] VITALS: BMI 34.0
[2025-02-03 17:43] VITALS: BP 105/69; PULSE 66; RESP 16; TEMP 36.6; O2SAT 99
[2025-02-03 19:30] VITALS: BP 109/70; PULSE 64; RESP 16; O2SAT 99; BMI 34.0
[2025-02-03] MEDS: MELATONIN 3 MG TABLET PO (19:58)
[2025-02-03] MEDS: Latanoprost 0.005% 1 Bottle 0.005 DRP EACH EYE (19:58)
[2025-02-03] MEDS: Gabapentin 400 MG Capsule PO (19:58)
[2025-02-03] MEDS: Atorvastatin Calcium 40 MG Tablet PO (19:58)
[2025-02-03 20:03] VITALS: BP 109/70; PULSE 64
[2025-02-04] VITALS (7 sets, daily range): BP systolic 107–138; BP diastolic 63–76; PULSE 58–74; RESP 16–17; TEMP 36.4–36.6; O2SAT 95–99; BMI 34.0
[2025-02-04] MEDS: Enoxaparin 40 MG/0.4 ML Syringe SC (05:17)
[2025-02-04] MEDS: tiZANidine HCl 2 MG Tablet 4 MG PO ×2 (05:17→21:28)
[2025-02-04] MEDS: Levothyroxine 50 MCG Tablet PO (05:17)
[2025-02-04] MEDS: Pyridoxine HCl 50 MG Tablet PO ×2 (05:18→16:34)
[2025-02-04] MEDS: Aspirin E.C. 81 MG Tablet PO (07:50)
[2025-02-04] MEDS: Losartan Potassium 100 MG Tablet PO (07:50)
[2025-02-04] MEDS: Sertraline 100 MG Tablet PO (07:51)
[2025-02-04] MEDS: Pantoprazole Sodium 40 MG Tablet PO (07:51)
[2025-02-04] MEDS: Ergocalciferol 1.25 MG (50, 000 UNIT) Capsule PO (07:51)
[2025-02-04] MEDS: Gabapentin 100 MG Capsule 200 MG PO ×2 (07:51→16:34)
[2025-02-04] MEDS: Multivitamins,Therapeutic Tablet 1 TABLET PO (07:51)
[2025-02-04] MEDS: Metoprolol Tartrate 25 MG Tablet 12.5 MG PO ×2 (07:52→21:27)
[2025-02-04] MEDS: SEMAGLUTIDE 0.25 MG/0.368 ML PEN.INJCTR SQ (07:56)
--- NOTE | 2025-02-04 09:58 | PCM.DC ---
Discharge Instructions Diet Discharge Diet: Low fat / Low cholesterol, Carb Control Diet and - (Low salt) DC O2, CPAP, BIPAP needs Home O2 Discharge instructions: No Dressing / Incision Discharge Activity: May Not Drive, May Shower and - (use giovanna-walker or a wheel chair. ) May resume sexual activity in: No Restrictions Weight Bearing Status: Full weight bearing Keep extremity elevated above heart level: - Dressing / Incision Call your doctor if you observe: Fever of 101 or Higher, Inability to urinate, Inability to have a bowel movement, Shortness of breath, Dizziness, Swelling in the ankles, Chest pain, Increased palpitations (irregular heartbeat), Calf discomfort, Uncontrolled pain and - (STROKE symptoms: facial droop, slurred speech, inability to get words out, weakness on 1 side of the body and not the other, numbness on 1 side of the body and not the other, inability to maintain your balance sitting or standing, vertigo. ) Follow Up Care Please Follow Up With: Lakshmi Van MD When: You will also need to follow up with neurology and cardiology to review the results of the heart monitor. Test Results: Test results from this visit will be discussed in further detail at your follow-up appointment, if applicable. Pending Tests Upon Discharge: none Discharge Plan Admission Admit Date/Time: 01/16/25 11:12 Primary Reason for Your Visit: POST STROKE DEBILITY Attending Provider: Vinita Donohue Primary Care Provider: Joi Gill Instructions Patient Instructions: Diabetes Heart Attack and ..., Depression Affects Your Mind ..., Counseling for Depression, Know the Symptoms of Depression, Discharge Instructions for Stroke Additional Instructions / Restrictions: 1. You have made great progress in the time you have been on rehab. You are going to need ongoing therapy post discharge from rehab and the social media project manager (BOGDAN) is arranging for home health care. Eventually you will be transitioned from home health care to outpatient therapy at [facility]. I think you will continue to improve. I am very impressed about your ability to walk. You are getting some movement in the R arm and that is all great. Recovery from a stroke is slow so hang in there......people are often in therapy for many months. 2. Your blood sugars and blood pressure are under good control. Your goals for treatment are to keep the BP < 130/80, the HGBA1C 7 or under and the LDL (bad cholesterol) 70 or under. You should ALWAYS know your current values for these numbers. Staying within these goals will significantly decrease your risk for heart disease, strokes, kidney failure and vascular disease going forward. 3. Check your blood sugars 1-2 times a day and vary the times. Keep a record of the time you took the blood sugar and the results to take with you when you see Dr. Van. The goal is to keep the fasting blood sugar (first thing in the morning) less than 130 and the blood sugar 2 hours after a meal under 180. Good times to check your blood sugar is fasting, before meals and at bedtime. 4. It would be a good idea to have a BP cuff at home so you can check your BP at different times of the day to make sure it is staying under 130/80. 5. We finally have the muscle cramps under control. The pain in the R arm is also controlled. You are taking a drug called Neurontin to help control the pain in the R arm that is originating in the brain. For the cramps you are taking a muscle relaxer and a B vitamin called Pyridoxine. 6. No smoking.....not even an occasional cigar. Nicotine causes vasospasm. If you already have narrowing in an artery from DM, HTN and high cholesterol nicotine can cause spasm of the artery and cause it to occlude which decrease blood flow to the area that artery supplies. Would also avoid caffeine which can also cause vasospasm. 7. If you are chronically using laxatives to have a BM your intestine will get dependent on this and then it will not move without a laxative. It is best to use a stool softener like Miralax, SF Metamucil or SF Citracel daily. If on this regimen you do not have a BM then on Day 3-4 with no BM take a laxative and then increase the stool softener to twice a day. 8. You are probably going to have questions after you get home. Do not hesitate to call me if you have questions. Please take better care of yourself Steven so you don't end up having more strokes and cardiac events. you will want to follow up with your extractions technologist within the next couple months. I will send him a discharge summary. You will need to have your lipid panel (cholesterol) and a liver panel checked in 3 weeks since you are now taking a statin. OFFICE: [phone] CELL: [phone] NURSES STATION ON REHAB: [phone] Discharge Orders/Prescriptions Prescriptions: New Ozempic 0.25 mg or 0.5 mg (2 mg/3 mL) pen injector 0.25 mg subcut QWEEK Qty: 3 0RF Rx Instructions: for 4 weeks ascorbic acid (vitamin C) 500 mg Tablet 1,000 mg PO LUNCH Qty: 60 0RF ferrous sulfate [FeroSul] 325 mg (65 mg iron) Tablet 325 mg PO DAILY@1200 Qty: 30 0RF Rx Instructions: Take this with the Ascorbic acid (VIT C) with a meal once a day levothyroxine 50 mcg Tablet 50 mcg PO MoTuWeThFrSa@0600 Qty: 35 0RF Rx Instructions: take 1 tab daily on an empty stomach except for Sunday....on Sunday take 2 tabs. gabapentin 100 mg Capsule 200 mg PO 0800,1700,2200 Qty: 24 0RF Rx Instructions: 2 capsules at 8 AM, 2 caps at 5 PM and 4 caps at bedtime losartan 100 mg Tablet 100 mg PO DAILY Qty: 30 0RF sertraline 100 mg Tablet 100 mg PO DAILY Qty: 30 0RF pyridoxine (vitamin B6) 50 mg Tablet 50 mg PO 0700,1700 Qty: 60 0RF baclofen 5 mg tablet 5 mg PO BID Qty: 60 0RF Continued latanoprost 0.005 drops 0.005 drp EACH EYE QHS ergocalciferol (vitamin D2) 50,000 capsule 50,000 mg PO WE multivitamin 1 EACH tablet 1 ea PO DAILY acetaminophen 325 mg Tablet 650 mg PO Q4H PRN PRN (Reason: Fever, pain 1-05/22) Qty: 0 0RF aspirin 81 MG tablet 81 mg PO DAILY semaglutide 1 mg/dose (2 mg/1.5 mL) pen injector 0.25 mg subcut QWEEK Rx Instructions: for 4 weeks atorvastatin 40 mg Tablet 40 mg PO QHS Qty: 30 0RF pantoprazole 40 mg tablet,delayed release (DR/EC) 40 mg PO DAILY Qty: 30 0RF metoprolol tartrate 25 mg tablet 12.5 mg PO BID Qty: 90 3RF nitroglycerin 0.4 mg tablet, sublingual 0.4 mg SUBLINGUAL Q5-15M PRN (Reason: chest pain) Qty: 25 3RF Rx Instructions: until response; do not exceed 3 doses per episode Discontinued levothyroxine 50 mcg tablet 50 mcg PO DAILY metformin 500 mg tablet 750 mg PO BID albuterol sulfate 2.5 mg /3 mL (0.083 %) Solution For Nebulization 2.5 mg inhalation Q2H PRN PRN (Reason: Dyspnea, wheezing) Qty: 0 0RF melatonin 3 mg Tablet 3 mg PO QHS PRN PRN (Reason: Insomnia) Qty: 0 0RF alum-mag hydroxide-simeth [Mag-Al Plus Extra Strength] 400-400-40 mg/5 mL Suspension 30 ml PO Q6H PRN PRN (Reason: Gastric Burning) Qty: 0 0RF enoxaparin 40 mg/0.4 mL Syringe 40 mg subcut DAILY Qty: 0 0RF losartan 50 mg tablet 50 mg PO DAILY Qty: 90 3RF Referrals / Follow Up: Hortensia Goel MD [Med Staff - Active Staff] - 02/18/25 11:00 am Nito Fried MD [Non-Staff -Ordering Privileges] - 03/09/25 8:30 am (you will see Nely THAPA) Disposition Disposition (needs filled in before D/C Order can be placed): Home Health Service
[2025-02-04] MEDS: Ferrous Sulfate 325 MG Tablet PO (11:59)
[2025-02-04] MEDS: Ascorbic Acid 500 MG Tablet 1000 MG PO (11:59)
--- NOTE | 2025-02-04 15:49 | CASEMGMT ---
Addendum entered by Joyce Mccarthy 02/04/25 16:41: SW received outcome from [facility]. SW phoned to provide pricing. to speak with pt and then notify [facility] directly. SW updated [facility] liaison. Original Note: Social Work Insurance issued LCD 02/03. IDT collaborated and d/t pt/family therapy training and no DME or HHC in place, it was an unsafe DC for 02/04. MD attempted about 4 times to schedule P2P. Earliest appt was 02/06 at 1420. SW informed RU Director of insurance predicament and Director agreed pt is not safe for DC 02/04, and RU to cover the cost of that day; then if pt elects to remain until outcome of the appeal of 02/06, and appeal is lost, pt would pay OOP cost for 02/05, for a DC 02/06 after appeal outcome received. Dr and PT also informed this worker for the request for a transport w/c to allow lightweight mobility for pt and , in addition to standard w/c. SW to discuss with pt/ as transport w/c will be OOP cost. - SW spoke with pt at bedside and via conference call to explain above information. Both agreed they cannot pay OOP. can work remotely tomorrow to be at the home for DME delivery. agreeable to obtain the cost of renting a transport w/c from [facility]. SW to inquire to [facility]. SW inquired skilled HHC option. prefers [facility] first, then [facility] second. to transport pt after work hours. SW to finalize and notify of any changes that may occur. - BOGDAN updated IDT. Phoned referral to [facility] for PT/OT/ST/SN. Phoned Raimundo at [facility] to discuss DME needs. Raimundo to provide SW with pricing of transport w/c once obtained. Plan: DC home with 02/05, [facility] PT/OT/ST/SN, standard w/c, hemiwalker, transport w/c Joyce Mccarthy RN RELIEF CHARGE CHIEF PSYCHOLOGIST
[2025-02-04 20:32] LABS: Bedside Glucose 128 mg/dL (74-106)
[2025-02-04] MEDS: Gabapentin 400 MG Capsule PO (21:27)
[2025-02-04] MEDS: Atorvastatin Calcium 40 MG Tablet PO (21:28)
[2025-02-04] MEDS: MELATONIN 3 MG TABLET PO (21:28)
[2025-02-04] MEDS: Latanoprost 0.005% 1 Bottle 0.005 DRP EACH EYE (21:28)
[2025-02-05 06:00] VITALS: BP 109/72; PULSE 71; RESP 18; TEMP 36.8; O2SAT 98
[2025-02-05] MEDS: Enoxaparin 40 MG/0.4 ML Syringe SC (06:38)
[2025-02-05] MEDS: tiZANidine HCl 2 MG Tablet 4 MG PO (06:38)
[2025-02-05] MEDS: Levothyroxine 50 MCG Tablet PO (06:39)
[2025-02-05] MEDS: Pyridoxine HCl 50 MG Tablet PO (06:39)
[2025-02-05] MEDS: Aspirin E.C. 81 MG Tablet PO (08:11)
[2025-02-05] MEDS: Multivitamins,Therapeutic Tablet 1 TABLET PO (08:11)
[2025-02-05] MEDS: Gabapentin 100 MG Capsule 200 MG PO (08:11)
[2025-02-05] MEDS: Sertraline 100 MG Tablet PO (08:11)
[2025-02-05 08:12] VITALS: BP 109/72; PULSE 71
[2025-02-05] MEDS: Losartan Potassium 100 MG Tablet PO (08:12)
[2025-02-05] MEDS: Metoprolol Tartrate 25 MG Tablet 12.5 MG PO (08:12)
[2025-02-05] MEDS: Pantoprazole Sodium 40 MG Tablet PO (08:12)
[2025-02-05] MEDS: Ferrous Sulfate 325 MG Tablet PO (11:17)
[2025-02-05] MEDS: Ascorbic Acid 500 MG Tablet 1000 MG PO (11:17)
--- NOTE | 2025-02-05 12:27 | EX.DISCHREH ---
Providers Date of Admission: 01/16/25 Date of Discharge: 02/05/25 Primary Care Physician: Dr. Joi Gill MD none Reason For Visit: STROKE Diagnosis Discharge Diagnosis (1) Physical debility: Status: Acute Code(s): R53.81 - Other malaise (2) Acute cerebrovascular accident (CVA): Status: Acute Code(s): I63.9 - Cerebral infarction, unspecified Plan: Ischemic L pontine CVA on 01/14/25. (3) Acute right hemiparesis: Status: Acute Code(s): G81.91 - Hemiplegia, unspecified affecting right dominant side Plan: No movement of the R arm or the R leg at the time of admission to rehab. Also with R facial droop, dysarthria and dysphagia. (4) Facial droop due to acute stroke: Status: Acute Code(s): I63.9 - Cerebral infarction, unspecified; R29.810 - Facial weakness Plan: R facial droop. Improved at the time of DC but, still present. Dysarthria is much better. (5) Oropharyngeal dysphagia: Status: Acute Code(s): R13.12 - Dysphagia, oropharyngeal phase (6) Dysarthria: Status: Acute Code(s): R47.1 - Dysarthria and anarthria (7) Paresthesia: Status: Acute Code(s): R20.2 - Paresthesia of skin (8) Microcytic anemia: Status: Acute Code(s): D50.9 - Iron deficiency anemia, unspecified Plan: 78.9 on 01/15/26. Had IV iron sucrose. He is chronically on a PPI. MCV at DC is 81.2 and the HGB is stable to 13.2 now. It was 11.9 on 01/16/25. (9) Type 2 diabetes mellitus: Status: Chronic Code(s): E11.9 - Type 2 diabetes mellitus without complications Qualifiers: Diabetes mellitus complication status: with other specified complication Diabetes mellitus prison insulin use: without prison use Qualified Code(s): E11.69 - Type 2 diabetes mellitus with other specified complication Plan: HGBA1C 7.5 at admission to rehab. Education regarding carb and calorie control was given by the housecleaner and myself. He was started on a heart healthy carb consistent diet on rehab and also on Ozempic 0.25 mg daily. We were able to discontinue Metformin and he is being discharged on Ozempic. He will check his blood sugars and keep a record to take to his PCP at his first appt. He is tolerating Ozempic with no c/o heartburn, N/V, bloating or abd pain. He has lost 16 lbs since he presented to the ED on 01/11/25. (10) Essential hypertension: Status: Chronic Code(s): I10 - Essential (primary) hypertension Plan: Was on Cozaar 25 mg daily and Metoprolol 25 BID at presentation to ER. Suspect the BP was not adequately controlled as OP because he has LVH and stage I diastolic dysfunction. He was bradycardic on rehab and the metoprolol was decreased to 12.5 mg twice daily. Cozaar has been increased to 100 mg p.o. twice daily and the blood pressure is at goal, less than 130/80, at discharge from rehab. (11) Hyperlipemia: Status: Chronic Code(s): E78.5 - Hyperlipidemia, unspecified Qualifiers: Hyperlipidemia type: unspecified Qualified Code(s): E78.5 - Hyperlipidemia, unspecified Plan: Listed statins as an allergy but, he was started on a statin and he has tolerated this well with no adverse side effects. He is being discharged on 40 mg Q HS. will need a liver panel and a lipid panel in 3 weeks after DC from rehab. The goal for the LDL is 70 or less. (12) Atherosclerotic heart disease of [place] coronary artery without angina pectoris: Status: Chronic Code(s): I25.10 - Atherosclerotic heart disease of [place] coronary artery without angina pectoris Qualifiers: [place] vs. transplanted heart: [place] heart Qualified Code(s): I25.10 - Atherosclerotic heart disease of [place] coronary artery without angina pectoris (13) History of coronary artery stent placement: Status: Chronic Code(s): Z95.5 - Presence of coronary angioplasty implant and graft (14) Concentric left ventricular hypertrophy: Status: Chronic Code(s): I51.7 - Cardiomegaly (15) Grade I diastolic dysfunction: Status: Chronic Code(s): I51.89 - Other ill-defined heart diseases (16) GERD (gastroesophageal reflux disease): Status: Chronic Code(s): K21.9 - Gastro-esophageal reflux disease without esophagitis Qualifiers: Esophagitis presence: without esophagitis Qualified Code(s): K21.9 - Gastro-esophageal reflux disease without esophagitis Plan: Chronically on a PPI. (17) Reactive depression: Status: Acute Code(s): F32.9 - Major depressive disorder, single episode, unspecified Plan: Much better on Sertraline 100 mg daily which is also treating pseudobulbar affect. (18) Pseudobulbar affect: Status: Acute Code(s): F48.2 - Pseudobulbar affect Plan: Inappropriate laughing and crying at admission to rehab. Much better with Sertraline. (19) Superficial thrombophlebitis of arm: Status: Resolved Code(s): I80.8 - Phlebitis and thrombophlebitis of other sites Qualifiers: Laterality: left Qualified Code(s): I80.8 - Phlebitis and thrombophlebitis of other sites Plan: Left antecubital area, basilic vein at the site of IV. Resolved prior to DC from rehab. (20) Central neuropathic pain: Status: Acute Code(s): M79.2 - Neuralgia and neuritis, unspecified Plan: Resolved with Gabapentin. The pain was in the RUE/hand. Adequately controlled at IL from rehab and he is sleeping well. (21) Erectile dysfunction: Status: Acute Code(s): N52.9 - Male erectile dysfunction, unspecified Qualifiers: Erectile dysfunction type: unspecified Qualified Code(s): N52.9 - Male erectile dysfunction, unspecified Plan: He tells me at IL that this is working again and he does not think it is going to be a problem. He does have NTG at home to take PRN for angina. We discussed the interaction of phosphodiesterase inhibitors with nitroglycerin and the use of both of these medications together is contraindicated and can result in marked decrease in blood pressure. If he should require a medication for erectile dysfunction going forward would need to have this discussion again with him. (22) Morbid obesity: Status: Chronic Code(s): E66.01 - Morbid (severe) obesity due to excess calories Plan: He has lost 16 lbs since admission to the hospital. Will continue Ozempic. BMI is 34 at IL from rehab. (23) History of colon cancer: Status: Chronic Code(s): Z85.038 - Personal history of other malignant neoplasm of large intestine (24) Constipation: Status: Acute Code(s): K59.00 - Constipation, unspecified Qualifiers: Constipation type: unspecified constipation type Qualified Code(s): K59.00 - Constipation, unspecified Plan: He has chronic constipation and has been taking Dulcolax a few times a week at home. We discussed that chronic laxative use can result in lazy gut that gets dependent on a laxative to move. Recommended he start a stool softener daily and only use a laxative if he has not had a BM in 3-4 days. If is needing to use laxatives more than a couple times a month he should increase the stool softener to BID. Advised to maintain good fluid intake. (25) Tobacco use: Status: Chronic Code(s): Z72.0 - Tobacco use Plan: He was smoking cigars and he was given smoking cessation counselling while on rehab. (26) Muscle cramps: Status: Chronic Code(s): R25.2 - Cramp and spasm Plan: c/o severe muscle cramps in the R calf at presentation to rehab. Was taking potassium and magnesium supplements prior to admission but, was still having cramps. He has not complained to me of muscle cramps in the R calf for over a week prior to DC. Pyridoxine and baclofen RX's give at DC. Plan 1. DC home with [facility] for PT/OT/ST/SN 2. RX for KAFO written and sent to [employer] by . 3. DME includes standard wheelchair, hemiwalker, elevated toilet seat and transport WC (they will have to pay for this......insurance to cover the std WC. 4. He wanted to change PCP's and he was referred to Dr. Goel.....an appt has been made for him. 5. An appt with Dr. Fried has been made. 6. He will continue to follow up with his esthetic dermatologist 7. RX for a handicap parking placard was given to him to obtain from [facility]. 8. Reinforced with him multiple times over the course of his stay in rehab his goals for treatment to prevent cardiovscular events/strokes going forward. HGBA1C less than or equal to 7. LDL 70 or less. Blood pressure less than 130/80. Medications at Discharge Home Medications ergocalciferol (vitamin D2) 1,250 mcg (50,000 unit) capsule 50,000 mg PO WE vitamin 10/24/18 latanoprost 0.005 % eye drops 0.005 drp EACH EYE QHS glaucoma 10/24/18 multivitamin 1 ea PO DAILY vitamin 10/24/18 metoprolol tartrate 25 mg tablet 12.5 mg (1/2 x 25 mg) PO BID heart rate #90 tabs 03/12/23 nitroglycerin 0.4 mg sublingual tablet 0.4 mg sublingual Q5-15M PRN chest pain #25 tabs 05/13/24 acetaminophen 325 mg tablet 650 mg (2 x 325 mg) PO Q4H PRN PRN Fever, pain 1-05/22 #0 tabs 01/16/25 aspirin 81 mg tablet,delayed release 81 mg PO DAILY heart health 01/16/25 semaglutide 0.25 mg or 0.5 mg (2 mg/3 mL) subcutaneous pen injector (Ozempic) 0.25 mg (0.368 mL) subcut QWEEK #3 mL 01/19/25 semaglutide 1 mg/dose (2 mg/1.5 mL) subcutaneous pen injector 0.25 mg subcut QWEEK blood sugar 01/20/25 ascorbic acid (vitamin C) 500 mg tablet 1,000 mg (2 x 500 mg) PO LUNCH #60 tabs 02/04/25 atorvastatin 40 mg tablet 40 mg PO QHS cholesterol #30 tabs 02/04/25 baclofen 5 mg tablet 5 mg PO BID #60 tabs 02/04/25 ferrous sulfate 325 mg (65 mg iron) tablet (FeroSul) 325 mg PO DAILY@1200 #30 tabs 02/04/25 gabapentin 100 mg capsule 200 mg (2 x 100 mg) PO 0800,1700,2200 #24 caps 02/04/25 levothyroxine 50 mcg tablet 50 mcg PO MoTuWeThFrSa@0600 #35 tabs 02/04/25 losartan 100 mg tablet 100 mg PO DAILY #30 tabs 02/04/25 pantoprazole 40 mg tablet,delayed release 40 mg PO DAILY stomach #30 tabs 02/04/25 pyridoxine (vitamin B6) 50 mg tablet 50 mg PO 0700,1700 #60 tabs 02/04/25 sertraline 100 mg tablet 100 mg PO DAILY #30 tabs 02/04/25 Hospital Course Operations None Procedures Transthoracic echo (Interpretation Summary The LV systolic function is normal. EF is 65 %. Stage 1 diastolic dysfunction. Hypermobile interatrial septum. Bubble contrast study nondiagnostic for PFO/ASD. Atherosclerotic aortic root with mild calcification. The study was technically difficult.) Summary of Care Provided Minutes Spent on Discharge: 45 Hospital Course: WALDO MURRAY, is a 64 YO M with a PMH of chronic anemia, obesity, GERD, restless leg syndrome? with RLE cramping and pain? , hypothyroidism, history of colon cancer (status post partial colectomy/ileostomy - has been reversed), hypertension, hyperlipidemia, diabetes mellitus type 2, diabetic peripheral polyneuropathy, coronary artery disease (history of PCI) and tobacco dependence (He admitted to smoking cigars) who presented to the ED at [facility] on 01/14/25 at 03:01 with a complaint of right-sided facial droop, right-sided weakness and slurred speech. He reported that he went to bed at approximately 11 PM on 01/13/2025 and woke up at approximately 1:30 in the morning with symptoms. He did not immediately go to the ED. NIHSS was 9 at arrival to the ED. Stat CT brain, at 03:04 showed no acute intracranial findings. CTA of the head and neck showed no hemodynamically significant narrowing or large vessel occlusion of the head and neck vasculature. Tele-neurology was consulted and was online at 03:17. At the time the independent marketing consultant finished reviewing the scans and examining the patient he was just outside the 4 1/2 hour time limit for thrombolytic therapy. Neurology felt this was most likely a small vessel stroke and that TNK was not indicated because the risk at > 4.5 hours outweighed potential benefit. He was admitted to the hospitalist service. MRI and TTE were ordered and he was maintained on ASA 81 mg daily. He stated he was allergic to statins and listed reactions to Crestor as GERD and cough. Total cholesterol was 188 with an LDL of 125 and an HDL of 40. He was started on Atorvastatin. TSH was a little high at 5.66. He was taking levothyroxine 50 mcg daily. The dose was changed to 50 mcg daily Sunday through Sunday and he will take 100 mcg on Sunday only. He should have a repeat TSH done in another 6 weeks. Hemoglobin A1c was 7.5. MRI showed an acute left pontine infarction. Transthoracic echocardiogram showed mild concentric left ventricular hypertrophy with an ejection fraction of 65% and stage I diastolic dysfunction. Both atria were of normal size but there was a hypermobile interatrial septum. The bubble contrast study was nondiagnostic for PFO/ASD. He was started on Atorvastatin on 01/15/25. PT/OT/ST recommended acute inpt rehab and he was transferred to the acute inpt rehab unit at [facility] on 01/16/25 for 3 hours of therapy daily to restore function/independence at or near his level prior to the stroke. At the time of admission to rehab he had inappropriate laughing and crying consistent with pseudobulbar affect. He also complained of feeling depressed and his affect was very flat. He tends to have a negative outlook. He was started on sertraline 50 mg daily and tolerated this well with no adverse side effects. The dose was increased to 100 mg daily and prior to discharge the laughing/crying is much better and his affect has improved. He is sleeping well at night and has a good appetite. He c/o severe spasms in the RLE that he was having as an OP. He was taking potassium and magnesium supplements but still had cramping. Potassium and magnesium were both normal. At the time of discharge she is not complaining of cramps in the right lower extremity for over a week. If I ask him about it he said he occasionally has a cramp. He is taking pyridoxine and a muscle relaxer ( being discharged on baclofen) and he is doing well. He developed some pain in the RUE and hypertonicity in the R hand with clenching of the fist and inability to extend the fingers. He was started on Gabapentin for central neuropathic pain and this has helped a lot. He is no longer c/o pain in the R arm. While on rehab he was started on Ozempic 0.25 mg weekly to promote weight loss and control BS's. After starting Ozempic in conjunction with a healthy carb consistent diet we were able to DC Metformin. He has had no nausea/vomiting/heartburn/abdominal pain since starting Ozempic. Blood sugars are very well controlled at the time of Dc from rehab. BP was not adequately controlled at admission to rehab. He had bradycardia and the Metoprolol was decreased to 12.5 mg BID. HR is now WNL. He has not had any angina. Cozaar was increased from 25 mg daily to 100 mg daily and the BP is at goal of < 130/80 at the time of DC. He is going to check his BP's and blood sugars at home and keep a record to bring to his PCP. Steven did very well on rehab. At the time of DC he is able to do 8 sit to stands in 30 seconds using his left upper extremity to rise. He is able to do the TUG (timed up and go test) in 55.73 seconds. He was unable to do this at all at admission to rehab. He is ambulated up to 80 feet with a hemiwalker at min assist/contact guard assist. He is able to ascend/descend one 3 inch platform step with a hemiwalker to simulate entrance to his home at moderate assistance. He is supervision/set up for eating and grooming. He requires moderate assistance with bathing and he is contact-guard assist for upper body dressing. He needs minimal assistance with lower body dressing. Toilet transfer is minimal assistance but toileting requires moderate assistance. He needs minimal assistance with tub/shower transfer. He is able to safely get in and out of a vehicle without loss of balance. Steven's Muriel came in for family training prior to IL and she feels she will be able to provide the assistance Steven will need. He was discharged on 02/05 and will have [facility] for PT/OT/ST/SN. A RX was written for a KAFO (knee ankle foot orthotic) at IL. When he fatigues his knee gets soft and he is at risk for it buckling. DME was ordered for HW, std WC and an elevated toilet Follow up appts were scheduled for PCP and for neurology. he will need a liver profile and a lipid panel in 3-4 weeks. Needs a tSH in 3-5 weeks since the dose was changed. Physical Exam Const alert, oriented x3 and no apparent distress General Appearance: cooperative, well kempt and well developed Nutritional Appearance: obese HEENT normocephalic, head/scalp atraumatic, hearing grossly normal bilaterally and moist oral mucous membranes Eyes PERRL, EOMs intact bilaterally, conjunctivae normal and no scleral icterus Eyes Narrative: No discharge from the eyes and no mattering of the eyelashes. Eyes are blue. Slight ptosis on the R of the upper lid. General Eye: normal appearance of both eyes Neck supple and No nodes Neck Narrative: Thick neck. Supple. No bruits. Brisk caotid upstroke with good pulse volume. General: trachea midline; Negative for tenderness Chest Chest: symmetrical chest wall rise Resp normal respiratory effort, normal air movement, no use of accessory muscles and clear to auscultation bilaterally Effort and Inspection: able to speak in complete sentences; Negative for tachypneic or pursed lip breathing Cardio regular rate, regular rhythm, S1 normal heart sound, S2 normal heart sound, no murmurs, no rub and no gallops Cardio Narrative: No ectopy GI normal to inspection, nondistended, normoactive bowel sounds, soft to palpation and non-tender GI Narrative: no guarding with palpation. Back/Spine Back/Spine Narrative: Denies pain. General Back: Negative for CVA tenderness Extremity no calf tenderness Extremity Narrative: Superficial varicosities of both legs. No pitting edema. No clubbing Skin no wounds and no jaundice General Skin Exam: no breakdown Rashes: no rashes Neuro oriented x3 Neuro Narrative: R facial droop is much improved....still with flattening of the R nasolabial fold. Tongue protrudes on the midline. No sensory loss in the face. Now able to shrug the R shoulder......it is weaker than the left. He can not not hold the arm up if I lift it......it falls immediately to the bed. He is able to lift the forearm at the elbow somewhat. He has some contraction of the R biceps and he has a weak R hand clinical application specialist now. He is able to move the R foot forward when ambulating without assist now. He can pull his leg back when sitting in a chair if I extend it. He has has some contraction of the R quadriceps now. He has hyperasthesia of the RLE. No sensory loss in the RUE. No extinction, Speech is much more crisp and he is only slurring a little when he fatigues. No visual field cute. NO nystagmus. PERRLA. Psych Psych Narrative: No inappropriate laughing or crying. Affect is better. Sleeping well at night. Good appetite. Affect is more normal and less flat. Less somatic complaints. Appearance: appropriate and well kempt Attitude: calm and engaged Activity / Motor Behavior: appropriate eye contact Speech: normal speech Weight / BMI Weight Weight: 244 lb 2 oz Body Mass Index (BMI) 34.0 ABG / Lab / Microbiology Data 02/03/25 05:30 02/03/25 05:30 Laboratory: Laboratory Results - last 24 hr 02/04/25 19:55: POC Glucose 128 H Microbiology: Microbiology 01/17/25 12:25 Stool Stool Occult Blood ([facility]) - Final Indicators for Scoring Admitted with or Primary Diagnosis of CVA/Stroke: Yes Hx of CVA/Stroke: Yes Modified [place] Score MRS Score at time of Evaluation: 4-Moderate/severe disability NIHSS NIHSS 1a. Level of Consciousness: 0 - Alert; keenly responsive 1b. LOC Questions: 0 - Answers BOTH questions correctly 1c. LOC Commands: 0 - Performs BOTH tasks correctly 2. Best Gaze: 0 - Normal 3. Visual: 0 - No visual loss 4. Facial Palsy: 1 - Minor paralysis (flattened nasolabial fold, asymmetry on smiling) 5a. Left Arm: 0 - No drift; arm holds 90 (or 45) degrees for full 10 seconds 5b. Right Arm: 2 - Some effort against gravity; (able to lift the forearm off the bed at the elbow without assist. ) 6a. Left Le - No drift; leg holds 30-degree position for full 5 seconds 6b. Right Le - Drift; leg falls by the end of 5-seconds, but does not hit bed 7. Limb Ataxia: 0 - Absent 8. Sensory: 1 - [id number] sensory loss; (Still with some hyperesthesia with pinprick of the RLE. No sensory changes in the face or arm today. ) 9. Best Language: 0 - No aphasia; normal 10. Dysarthria: 0 - Normal 11. Extinction and Inattention: 0 - No abnormality Total: 5 Stroke Questions Stroke Team Activated: No D/C Instructions Discharge Diet: Low fat / Low cholesterol, Carb Control Diet and - (Low salt) May resume sexual activity in: No Restrictions Weight Bearing Status: Full weight bearing Keep extremity elevated above heart level: - Call your doctor if you observe: Fever of 101 or Higher, Inability to urinate, Inability to have a bowel movement, Shortness of breath, Dizziness, Swelling in the ankles, Chest pain, Increased palpitations (irregular heartbeat), Calf discomfort, Uncontrolled pain and - (STROKE symptoms: facial droop, slurred speech, inability to get words out, weakness on 1 side of the body and not the other, numbness on 1 side of the body and not the other, inability to maintain your balance sitting or standing, vertigo. ) DC O2, CPAP, BIPAP Needs RN Home O2 qualification: No Data to Display PSN CPAP & BiPAP: BiPAP & CPAP Settings per PSN Fraction of Inspired Oxygen ( 21 01/16/25 20:19 FIO2) Home O2 Discharge instructions: No Pending Tests Upon Discharge: none Please Follow Up With: Lakshmi Van MD When: You will also need to follow up with neurology and cardiology to review the results of the heart monitor. Meaningful Use Info Meaningful Use Meaningful Use Diagnoses (Choose all that apply): Ischemic CVA CVA Therapy Assessed for PT,OT and/or ST?: Yes Ischemic Stroke Antithrombotic order at d/c?: Yes Dx of Atrial fib/flutter?: No Anticoagulant at discharge?: No Reason anticoagulant not ordered: Treatment not Indicated (He has an event monitor on and will follow up with [facility]) Statin Dosing Therapy Reference: STATIN DOSE THERAPY REFERENCE: * Patients > 75 years receive moderate or high dose statin therapy. * Patients 75 years or YOUNGER should receive HIGH intensity statin dose unless contraindicated. You will be required to document reason for non-treatment if statin daily dose does not meet guidelines. HIGH DOSE STATIN THERAPY DAILY Atorvastatin > than or = to 40 mg Rosuvastatin > than or = to 20 mg Amlodipine + Atorvastatin > than or = to 2.5/40 mg Ezetimibe + Simvastatin 10/80 mg Simvastatin 80mg Statins at discharge?: Yes If patient is 75 or younger, pt will be discharged on HIGH intensity statin.: Yes Primary Dx Acute Ischemic CVA?: Yes IV thrombolytic ordered during stay?: No Reason IV thrombolytic not ordered: Procedure not Indicated (were not given in the ED either at presentation........past the 4 and 1/2 hour tucker. ) Discharge Plan Admission Admit Date/Time: 01/16/25 11:12 Primary Reason for Your Visit: POST STROKE DEBILITY Attending Provider: Vinita Donohue Primary Care Provider: Joi Gill Instructions Patient Instructions: Diabetes Heart Attack and ..., Depression Affects Your Mind ..., Counseling for Depression, Know the Symptoms of Depression, Discharge Instructions for Stroke Additional Instructions / Restrictions: 1. You have made great progress in the time you have been on rehab. You are going to need ongoing therapy post discharge from rehab and the social media marketer (BOGDAN) is arranging for home health care. Eventually you will be transitioned from home health care to outpatient therapy at [facility]. I think you will continue to improve. I am very impressed about your ability to walk. You are getting some movement in the R arm and that is all great. Recovery from a stroke is slow so hang in there......people are often in therapy for many months. 2. Your blood sugars and blood pressure are under good control. Your goals for treatment are to keep the BP < 130/80, the HGBA1C 7 or under and the LDL (bad cholesterol) 70 or under. You should ALWAYS know your current values for these numbers. Staying within these goals will significantly decrease your risk for heart disease, strokes, kidney failure and vascular disease going forward. 3. Check your blood sugars 1-2 times a day and vary the times. Keep a record of the time you took the blood sugar and the results to take with you when you see Dr. Van. The goal is to keep the fasting blood sugar (first thing in the morning) less than 130 and the blood sugar 2 hours after a meal under 180. Good times to check your blood sugar is fasting, before meals and at bedtime. 4. It would be a good idea to have a BP cuff at home so you can check your BP at different times of the day to make sure it is staying under 130/80. 5. We finally have the muscle cramps under control. The pain in the R arm is also controlled. You are taking a drug called Neurontin to help control the pain in the R arm that is originating in the brain. For the cramps you are taking a muscle relaxer and a B vitamin called Pyridoxine. 6. No smoking.....not even an occasional cigar. Nicotine causes vasospasm. If you already have narrowing in an artery from DM, HTN and high cholesterol nicotine can cause spasm of the artery and cause it to occlude which decrease blood flow to the area that artery supplies. Would also avoid caffeine which can also cause vasospasm. 7. If you are chronically using laxatives to have a BM your intestine will get dependent on this and then it will not move without a laxative. It is best to use a stool softener like Miralax, SF Metamucil or SF Citracel daily. If on this regimen you do not have a BM then on Day 3-4 with no BM take a laxative and then increase the stool softener to twice a day. 8. You are probably going to have questions after you get home. Do not hesitate to call me if you have questions. Please take better care of yourself Steven so you don't end up having more strokes and cardiac events. you will want to follow up with your esthetic dermatologist within the next couple months. I will send him a discharge summary. You will need to have your lipid panel (cholesterol) and a liver panel checked in 3 weeks since you are now taking a statin. OFFICE: [phone] CELL: [phone] NURSES STATION ON REHAB: [phone] B balance E eyesight/vision F face....any facial droop or asymmetry A ARM - any drift with 1 arm when you hold arms up S SPEECH - slurred speech or inability to get words out T TIME - if you have ANY of these symptoms CALL 911 IMMEDIATELY Time is brain and the faster you get to an ED the better chance you have of limiting the disability due to stroke. Clot busting medications can actually prevent a stroke IF given early. After 4 and 1/2 hours we can not give a clot busting medication. Discharge Orders/Prescriptions Prescriptions: New Ozempic 0.25 mg or 0.5 mg (2 mg/3 mL) pen injector 0.25 mg subcut QWEEK Qty: 3 0RF Rx Instructions: for 4 weeks ascorbic acid (vitamin C) 500 mg Tablet 1,000 mg PO LUNCH Qty: 60 0RF ferrous sulfate [FeroSul] 325 mg (65 mg iron) Tablet 325 mg PO DAILY@1200 Qty: 30 0RF Rx Instructions: Take this with the Ascorbic acid (VIT C) with a meal once a day levothyroxine 50 mcg Tablet 50 mcg PO MoTuWeThFrSa@0600 Qty: 35 0RF Rx Instructions: take 1 tab daily on an empty stomach except for Sunday....on Sunday take 2 tabs. gabapentin 100 mg Capsule 200 mg PO 0800,1700,2200 Qty: 24 0RF Rx Instructions: 2 capsules at 8 AM, 2 caps at 5 PM and 4 caps at bedtime losartan 100 mg Tablet 100 mg PO DAILY Qty: 30 0RF sertraline 100 mg Tablet 100 mg PO DAILY Qty: 30 0RF pyridoxine (vitamin B6) 50 mg Tablet 50 mg PO 0700,1700 Qty: 60 0RF baclofen 5 mg tablet 5 mg PO BID Qty: 60 0RF Continued latanoprost 0.005 drops 0.005 drp EACH EYE QHS ergocalciferol (vitamin D2) 50,000 capsule 50,000 mg PO WE multivitamin 1 EACH tablet 1 ea PO DAILY acetaminophen 325 mg Tablet 650 mg PO Q4H PRN PRN (Reason: Fever, pain -05/22) Qty: 0 0RF aspirin 81 MG tablet 81 mg PO DAILY semaglutide 1 mg/dose (2 mg/1.5 mL) pen injector 0.25 mg subcut QWEEK Rx Instructions: for 4 weeks atorvastatin 40 mg Tablet 40 mg PO QHS Qty: 30 0RF pantoprazole 40 mg tablet,delayed release (DR/EC) 40 mg PO DAILY Qty: 30 0RF metoprolol tartrate 25 mg tablet 12.5 mg PO BID Qty: 90 3RF nitroglycerin 0.4 mg tablet, sublingual 0.4 mg SUBLINGUAL Q5-15M PRN (Reason: chest pain) Qty: 25 3RF Rx Instructions: until response; do not exceed 3 doses per episode Discontinued levothyroxine 50 mcg tablet 50 mcg PO DAILY metformin 500 mg tablet 750 mg PO BID albuterol sulfate 2.5 mg /3 mL (0.083 %) Solution For Nebulization 2.5 mg inhalation Q2H PRN PRN (Reason: Dyspnea, wheezing) Qty: 0 0RF melatonin 3 mg Tablet 3 mg PO QHS PRN PRN (Reason: Insomnia) Qty: 0 0RF alum-mag hydroxide-simeth [Mag-Al Plus Extra Strength] 400-400-40 mg/5 mL Suspension 30 ml PO Q6H PRN PRN (Reason: Gastric Burning) Qty: 0 0RF enoxaparin 40 mg/0.4 mL Syringe 40 mg subcut DAILY Qty: 0 0RF losartan 50 mg tablet 50 mg PO DAILY Qty: 90 3RF Referrals / Follow Up: Hortensia Goel MD [Med Staff - Active Staff] - 02/18/25 11:00 am Nito Fried MD [Non-Staff -Ordering Privileges] - 03/09/25 8:30 am (you will see Nely THAPA) Disposition Disposition (needs filled in before D/C Order can be placed): Home Health Service Charges/Coding Visit Charges Inpatient E&M: 56600 Disch Hosp >30min
[2025-02-05 15:28] VITALS: BMI 34.0
--- NOTE | 2025-02-05 15:48 | CASEMGMT ---
Social Work PT recommending pt have [facility] at [facility]. BOGDAN obtained script from and faxed to [facility]. SW received call from [facility] about insurance information. SW spoke with pt at bedside and provided written information on copays/amounts to provide to . Confirmed DC this date. Confirmed with [employer] that DME has been delivered. Joyce Mccarthy [employer]SEMBL[employer] BUYER
== END 2025-02-05 18:22 | disposition home health service (06) | DRG 57 ==
PROVIDERS: Admitting Provider Internal Medicine; PCP Internal Medicine; Visit Provider Internal Medicine
DX: I69.351 Hemiplegia and hemiparesis following cerebral infarction affecting right dominant side (principal); I50.32 Chronic diastolic (congestive) heart failure; I69.322 Dysarthria following cerebral infarction; E83.39 Other disorders of phosphorus metabolism; I69.391 Dysphagia following cerebral infarction; R13.12 Dysphagia, oropharyngeal phase; I11.0 Hypertensive heart disease with heart failure; E11.42 Type 2 diabetes mellitus with diabetic polyneuropathy; E66.01 Morbid (severe) obesity due to excess calories; D50.9 Iron deficiency anemia, unspecified; F32.9 Major depressive disorder, single episode, unspecified; E03.9 Hypothyroidism, unspecified; G25.81 Restless legs syndrome; I69.392 Facial weakness following cerebral infarction; E11.51 Type 2 diabetes mellitus with diabetic peripheral angiopathy without gangrene; E11.65 Type 2 diabetes mellitus with hyperglycemia; I25.10 Atherosclerotic heart disease of native coronary artery without angina pectoris; K21.9 Gastro-esophageal reflux disease without esophagitis; E78.5 Hyperlipidemia, unspecified; I80.8 Phlebitis and thrombophlebitis of other sites; I69.30 Unspecified sequelae of cerebral infarction; F17.290 Nicotine dependence, other tobacco product, uncomplicated; H02.401 Unspecified ptosis of right eyelid; F48.2 Pseudobulbar affect; Z79.01 Long term (current) use of anticoagulants; Z95.5 Presence of coronary angioplasty implant and graft; Z79.84 Long term (current) use of oral hypoglycemic drugs; Z79.890 Hormone replacement therapy; Z79.85 Long-term (current) use of injectable non-insulin antidiabetic drugs; Z68.35 Body mass index [BMI] 35.0-35.9, adult; N52.9 Male erectile dysfunction, unspecified; Z79.82 Long term (current) use of aspirin; Z79.899 Other long term (current) drug therapy
CPT/HCPCS: 36415; 74018; 80048; 82274; 82728; 82962; 83540; 83550; 83735; 84100; 84439; 85014; 85018; 85027; 92507; 92523; 92526; 92610; 93971; 94668; 94762; 97110; 97112; 97116; 97129; 97130; 97162; 97166; 97530; 97535; 97760; 97802; 97803; A4216; J2916

== ENCOUNTER → 2025-03-09 | Outpatient (CLI) | payer OTHER, SELFPAY ==
[2018-10-24 12:28] VITALS: BMI 36.8
[2025-03-09 16:22] LABS: CRP 11.10 mg/L (0.0-3.0); Vitamin B12 548 pg/mL (180-914)
[2025-03-11 12:09] LABS: ANTINUCLEAR ANTIBODIES DIRECT Negative (Negative)
== END | disposition home or self-care (01) ==
LOC: MTLAB 12:36
PROVIDERS: PCP Internal Medicine
DX: Z86.73 Personal history of transient ischemic attack (TIA), and cerebral infarction without residual deficits (principal); Z83.2 Family history of diseases of the blood and blood-forming organs and certain disorders involving the immune mechanism; G62.9 Polyneuropathy, unspecified
CPT/HCPCS: 36415; 81240; 81241; 82607; 84425; 85300; 85301; 85303; 85305; 85306; 85652; 86038; 86140; 86147; 86160; 86162; 86225

== ENCOUNTER → 2025-04-24 | Outpatient (CLI) | payer OTHER, SELFPAY ==
[2018-10-24 12:28] VITALS: BMI 36.8
[2025-04-24 16:32] LABS: Hematocrit 45.0 % (40-54); Hemoglobin 14.4 g/dL (13.0-16.5); Immature Granulocytes Count 0.050 X10^3/uL (0.0-0.0); Mean Corp Hgb Conc 32.0 g/dL (32-36); Mean Corpuscular Volume 84.6 fL (80-94); Mean Platelet Vol. 10.9 fl (6.2-12.0); NRBC Flagged by Analyzer 0 % (0-5); Platelet Count 312 K/mm3 (150-450); RBC Distribution Width CV 15.9 % (11.6-14.6); RBC Distribution Width SD 49.6 fl (35.1-43.9); Red Blood Count 5.32 M/mm3 (4.6-6.2); White Blood Count 14.4 K/mm3 (4.4-11.0)
[2025-04-24 17:19] LABS: Cholesterol 112 mg/dL (<=200); Low Density Lipoprotein Calc. 50 mg/dL; Triglycerides 124 mg/dL; Very Low Density Lipoprotein 25 mg/dL (5-40); cholesterol:hdl ratio screen 2.97
[2025-04-24 17:22] LABS: AST(SGOT) 33 U/L (<=37); Alanine Aminotransfer ALT/SGPT 33 U/L (<=46); Albumin, Serum 4.3 g/dL (3.4-4.8); Alkaline Phosphatase 102 U/L (40-129); Anion Gap 13 (5-15); BUN 10 mg/dL (4-19); BUN/Creat Ratio 11.0 RATIO (10-20); Calcium,Total 10.0 mg/dL (7.6-11.0); Carbon Dioxide 24.7 mmol/L (21.0-32.0); Chloride 101 mmol/L (98-108); Globulin 3.2 g/dL (2.2-4.2); Glucose 108 mg/dL (70-99); Potassium 4.5 mmol/L (3.3-5.1)
== END | disposition home or self-care (01) ==
LOC: LAB 14:52
PROVIDERS: Physician Assistant; PCP Internal Medicine; Referring Provider Physician Assistant Medical; Visit Provider Physician Assistant Medical
DX: E11.69 Type 2 diabetes mellitus with other specified complication (principal); E03.9 Hypothyroidism, unspecified; Z86.73 Personal history of transient ischemic attack (TIA), and cerebral infarction without residual deficits
CPT/HCPCS: 36415; 80053; 80061; 83036; 84443; 85025

== ENCOUNTER 2025-07-29 13:00 | Outpatient (RCR) | payer OTHER, SELFPAY ==
[2018-10-24 12:28] VITALS: BMI 36.8
--- NOTE | 2025-04-02 14:03 | HP.PTEVAL ---
Patient's Visit Information Visit Information Visit Information: WALDO MURRAY is a 64 year old M referred to Physical Therapy by JUAN F Huerta with a diagnosis of CVA. Date of Evaluation: 04/02/25 Physical Therapist: BOZENA Macario Visit Plan Frequency: 2x /Week Duration: 3 Months Plan: 2X/ week for 8-12 weeks for LE strength (hip adduction, eric DF, knee flexion, hip flexion, knee ext/flexion), balance, gait endurance, steps, curb steps, functional transfers and when stronger work on floor to mat table transfers with HEP Subjective Subjective: Pt had a stroke January 14 and it happened in the middle of the night. In the middle of the night and woke up with burning eyes and walked down the stairs and thought he was dehydrated and drank a Powerade and then the slurred speech started. He did have a blood clot and was too late to get clot buster. His short term memory is off. He was in the hospital in ICU for a few days and then went to Rehab for 3 weeks. Then he had some home health PT for a few weeks and ended last week. He has steps at home and tries to do them every other day. He is getting fitted for an ankle brace and maybe a knee brace. 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 He started on a walker and now uses a giovanna-walker since Rehab. He has had no falls since been home. He sleeps in a recliner. His bed is on the second floor. Due to his colon cancer he has to take laxatives'. They cut it out and he has no more cancer. Pt will be asking for an OT script for his R hand and shoulder. Objective Objective: Gait: walks with a giovanna walker in his L UE. His R foot does not pass the stance leg. He is able to walk from the front desk coordinator back to treatment area. LE MMT: R hip flexion 11.6 and L 20.6 R knee ext 20.1 and L 35 R knee flexion 10.2 and L 17.5 R ankle DF 10.6 and L 21.7 R hip add 8.1 and L 16.8 R hip abd 19.4 and L 21.3 Bridge: full bridge but R leg likes to fall out to the side Pt struggles with DF and PF AROM in sitting such as sitting heel and toe raises. CATSIB 33 Tinetti 14 Balance/Special Test Scores CATSIB Score (Max score 120 seconds): 33 Tinetti Balance Score: 9 Tinetti Gait Score: 5 Tinetti Balance & Gait Score: 14 Lower Extremity Functional Score: 26 Goals Goal 1:: I HEP Goal Time Frame: 8-12 Weeks Goal 2:: Pt to be able to get up using least mat table/chair to help him get up from the floor with CGA/Mario Goal Time Frame: 8-12 Weeks Goal 3:: Increase balance (tinetti was 14) Goal Time Frame: 8-12 Weeks Goal 4:: Increase LE strength (At the time of the eval: LE MMT: R hip flexion 11.6 and L 20.6 R knee ext 20.1 and L 35 R knee flexion 10.2 and L 17.5 R ankle DF 10.6 and L 21.7 R hip add 8.1 and L 16.8 R hip abd 19.4 and L 21.3) Goal Time Frame: 8-12 Weeks Rehabilitation Potential Rehabilitation Potential: Good Anticipated Interventions Patient/Client Instruction: Educate patient on: Condition and Plan of Care For the Purpose of:: To improve muscle performance and motor function, To improve ability to perform ADL's, To increase tolerance to activity/condition/position, To improve performance and independence with ADL's, To improve ability of physical actions for home/community/work/leisure, To improve gait and locomotor functions, To improve endurance, To improve balance and To improve safety with gait Therapeutic Exercise to Include: Strength training, Endurance training, Balance training, Postural training, Flexibilty training, Gait and locomotor training, Neuromotor development, Active ROM and Dynamic Lumbar Stabilization For the Purpose of:: To improve muscle performance and motor function, To improve ability to perform ADL's, To increase tolerance to activity/condition/position, To improve performance and independence with ADL's, To decrease level of supervision to perform tasks, To improve ability of physical actions for home/community/work/leisure, To improve gait and locomotor functions, To increase flexibility/ROM, To improve endurance, To improve balance and To improve safety with gait Functional Training to Include: Gait training For the Purpose of:: To improve gait and locomotor functions and To improve safety with gait Text: Thank you for the opportunity to evaluate your patient. For Medicare and Medicare HMO plans, please review the plan of care and approve it. It will need to be FAXED BACK to us at [phone] for Medicare purposes. For Medicare only, by signing this I certify the plan of care. Please let me know if there are questions or concerns regarding this plan of care. Physician Signature: Date:
--- NOTE | 2025-04-06 17:31 | HP.OTEVAL_ITS ---
Patient's Visit Information Visit Information Visit Information: WALDO MURRAY is a 64 year old M, referred to Occupational Therapy by JUAN F Huerta, with a diagnosis of Acute R hemiparesis; physical debility. Date of Evaluation: Occupational Therapist: Luma Castrejon Subjective Subjective: Pt is a 64 y/o male who arrives for this occupational therapy evaluation referred by JUAN F Huerta due to CVA resulting in R dominant sided hemiplegia. Pt had stroke on 01/14/25 resulting in inpatient rehab for 3 weeks with d/c home 02/04/25. Pt received PT/OT/Speech with home health 2-3x/wk for ~2 months, d/c 03/26/25 from therapy. Pt lives at home with in 2 story home. Pt sleeps in chair on 1st floor and is able to access 1st floor bathroom. Pt reports he is retired. ADLs Comments: Pt reports assists with ADLs completing about 50% of all ADLs with assistance. Pt reports tub with tub bench, hand held shower, and grab bars. Pt reports he completes some dishes, cooking, and light IADLs around home. Pt reports he participates in cutting soft vegetables. 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 Pt would also like to address bathing/being able to wash and rinse hair. Pain RUE: Current Pain Intensity: 0 Pain Intensity Range: 9 Objective Objective/Observation: Pt arrives with and utilizes giovanna-walker with increased time to location of evaluation ROM Shoulder: R: 55 Elbow: R: 60 ROM Comments: LUE WNL Limited in RUE AROM, able to assist with L hand to move through full ROM Strength Single Spindle Screw Machine Operator: R: 0 L: 80 Lateral Pinch: L: 20 Tripod Pinch: L: 21 Tip-to-Tip Pinch: L: 14 Strength Comments: RUE: brief hold against gravity with slow release at shoulder and elbow Nine Hole Peg Comments: To be completed at another date Quick DASH-Disab of Arm,Shoulder& Hand Quick DASH Score: 72.7250 Goals Goal:: Pt will increase RUE strength of shoulder, bicep and tricep by 5# or more in order to maximize I in preferred tasks. Pt will increase R hand and pinch strength by 2# or more in order to maximize I in preferred tasks. Goal:: Pt will increase AROM of R shoulder by 10 degrees or more in order to maximize I in preferred tasks. Goal:: Pt will report increase in independence during preferred daily task (cooking, washing hair, transfer plate from microwave, etc.), requiring no more than min A for maximized independence with preferred tasks. Rehabilitation Rehabilitation Potential: Good Anticipated Interventions Anticipated Interventions: A/AAROM/PROM, Strengthening, Massage, Modalities, Joint Protection/Energy Conservation, Fine Motor Coord/Mandeep, Neuro Reeducation, ADL Training and Home Program Visit Plan Frequency: 2x /Week Duration: 3 Months General Plan: Pt is 11wks, 5 days post CVA, resulting in R hemiplegia and physical debility. Pt would benefit from outpatient occupational therapy 2x/wk for 8-12 weeks to address strength, ROM, fine motor coordination/dexterity for improved independence in ADLs/IADLs and other preferred tasks. TEXT: Thank you for the opportunity to evaluate your patient. For Medicare and Medicare HMO plans, please review the plan of care and approve it. It will need to be FAXED BACK to us at [phone] for Medicare purposes. Please let me know if there are questions or concerns regarding this plan of care. Physician Signature: Date:
--- NOTE | 2025-05-19 10:40 | OTREVAL_ITS ---
Re-Evaluation Intro: JUAN F Huerta, It has been my pleasure to treat WALDO MURRAY over the last 11 visits for Acute R hemiparesis; physical debility. Please see the progress note below for an update on the occupational therapy plan of care! Subjective Subjective: pt arrives doing well overall Objective Objective/Function: pt is progressing in POC in functional movement and strength see below: able to complete full elbow flexion and ext can extend wrist to neutral able to rotate into supination 50 degrees supported on table top ink technician at 5# Plan Plan Frequency: 2x /Week Duration: 3 Months Visits in this POC: 24 Plan: Continue POC: 3 months (2x week) Goals Goals Patient Goals: Regain Mobility, Regain Strength, Improve Fine Motor Skills, Increase ROM, Be More Independent in ADLS, Resume Former Household Responsibilities (Cooking,Cleaning,Yard, etc.) and Resume Hobbies Goal:: Pt will increase RUE strength of shoulder, bicep and tricep by 5# or more in order to maximize I in preferred tasks. progressing Pt will increase R hand and pinch strength by 2# or more in order to maximize I in preferred tasks. progressing Goal:: Pt will increase AROM of R shoulder by 10 degrees or more in order to maximize I in preferred tasks. progressing Goal:: Pt will report increase in independence during preferred daily task (cooking, washing hair, transfer plate from microwave, etc.), requiring no more than min A for maximized independence with preferred tasks. progressing Anticipated Interventions Anticipated Interventions Anticipated Interventions: A/AAROM/PROM, Strengthening, Massage, Modalities, Joint Protection/Energy Conservation, Fine Motor Coord/Mandeep, Neuro Reeducation, ADL Training and Home Program Re-Evaluation Ending Re-evaluation ending: Please do not hesitate to contact me at [phone] by phone or if you have questions or concerns regarding this new plan of care! Sincerely, Jalyn Reinoso
--- NOTE | 2025-05-20 11:29 | HP.PTREVAL ---
Re-Evaluation Intro: JUAN F Huerta, It has been my pleasure to treat WALDO MURRAY over the last 13 visits for CVA. Please see the progress note below for an update on the physical therapy plan of care! Subjective Subjective: He reports that he likes to use the WBQC now. Pt has a brace but it comes all the way up to his thigh and he does not like to wear it and does not wear it. He does not have much catching of the foot does it on occ but has not had any falls. He has good control up the steps but not as much control going down the steps. He has a 2 story home. The banister is reinforced. He uses 2 hands to one banister. No falls. He reports that he feels that his leg is getting stronger. He is still in OT for his arm and shoulder. He has started showering standing up. Objective Objective/Function: Tinetti 16 picking up an object from the floor that is 8 inches from the floor with no UE support in the // bars but a little shaky Stairs: up with 2 hands on the R hand rail and up recip and down he likes to go SW but did ok today with 1 hand on the railing and descending recip ( he likes to go down with the L leg first) LE MMT: R hip flexion 11.9 and L 20.9 R knee ext 26.2 and L 41.7 R knee flexion 11.5 and L 17.5 R ankle DF 17.3 and L 21.7 R hip add 15 and L 21 R hip abd 20.7 and L 25.5 CATSIB 35 Gait around dept 1 lap with gait belt, WBQC and CGA to min A in 6 min and 58 seconds. Plan Plan Plan: balance with head movements, picking up objects from the floor, recip stairs, time gait around the dept and record, LE Strength (gear towards machines and exercises that he can do at the community center when ready, floor to stand transfers. 2X/ week for 8-12 weeks for LE strength (hip adduction, eric DF, knee flexion, hip flexion, knee ext/flexion), balance, gait endurance, steps, curb steps, functional transfers and when stronger work on floor to mat table transfers with HEP Balance/Gait/Functional tests Balance/Special Test Scores % Disability: 100 CATSIB Score (Max score 120 seconds): 35 Tinetti Balance Score: 11 Tinetti Gait Score: 5 Tinetti Balance & Gait Score: 16 Lower Extremity Functional Score: 28 Goals Goals Goal 1:: I HEP Goal Time Frame: 8-12 Weeks Goal 2:: Pt to be able to get up using least mat table/chair to help him get up from the floor with CGA/Mario Goal Time Frame: 8-12 Weeks Goal 3:: Increase balance (tinetti was 14) Goal Time Frame: 8-12 Weeks Goal Progress: Progressing Goal 4:: Increase LE strength (At the time of the eval: LE MMT: R hip flexion 11.6 and L 20.6 R knee ext 20.1 and L 35 R knee flexion 10.2 and L 17.5 R ankle DF 10.6 and L 21.7 R hip add 8.1 and L 16.8 R hip abd 19.4 and L 21.3) Goal Time Frame: 8-12 Weeks Goal Progress: Progressing Goal 5:: Be able to go up and down the steps recip with use of 1 hand rail with CGA and good control. Goal Time Frame: 6-8 Weeks Goal 6:: Walk around the dept with WBQC with increase in speed and control (6 min 58 seconds with several times he stops for a few seconds) Goal Time Frame: 6-8 Weeks Anticipated Interventions Anticipated Interventions Patient/Client Instruction: Educate patient on: Condition and Plan of Care For the Purpose of:: To improve muscle performance and motor function, To improve ability to perform ADL's, To increase tolerance to activity/condition/position, To improve performance and independence with ADL's, To improve ability of physical actions for home/community/work/leisure, To improve gait and locomotor functions, To improve endurance, To improve balance and To improve safety with gait Therapeutic Exercise to Include: Strength training, Endurance training, Balance training, Postural training, Flexibilty training, Gait and locomotor training, Neuromotor development, Active ROM and Dynamic Lumbar Stabilization For the Purpose of:: To improve muscle performance and motor function, To improve ability to perform ADL's, To increase tolerance to activity/condition/position, To improve performance and independence with ADL's, To decrease level of supervision to perform tasks, To improve ability of physical actions for home/community/work/leisure, To improve gait and locomotor functions, To increase flexibility/ROM, To improve endurance, To improve balance and To improve safety with gait Functional Training to Include: Gait training For the Purpose of:: To improve gait and locomotor functions and To improve safety with gait Re-Evaluation Ending Re-evaluation ending: Please do not hesitate to contact me at [phone] by phone or if you have questions or concerns regarding this new plan of care! Sincerely, Dora Griffith MPT
--- NOTE | 2025-05-20 15:29 | HP.OTREVAL ---
Re-Evaluation Intro: JUAN F Huerta, It has been my pleasure to treat WALDO MURRAY over the last 13 visits for Acute R hemiparesis; physical debility. Please see the progress note below for an update on the occupational therapy plan of care! Subjective Subjective: Pt arrived this day- No new concerns. Objective Objective/Function: pt is progressing in POC in functional movement and strength see below: able to complete full elbow flexion and ext can extend wrist to neutral able to rotate into supination 50 degrees supported on table top welcome center attendant at 5# Plan Plan Frequency: 2x /Week Duration: 4-6 Weeks Visits in this POC: 12 Plan: Continue POC: 3 months (2x week) Goals Goals Patient Goals: Regain Mobility, Regain Strength, Improve Fine Motor Skills, Increase ROM, Be More Independent in ADLS, Resume Former Household Responsibilities (Cooking,Cleaning,Yard, etc.) and Resume Hobbies Goal:: Pt will increase RUE strength of shoulder, bicep and tricep by 5# or more in order to maximize I in preferred tasks. progressing Pt will increase R hand and pinch strength by 2# or more in order to maximize I in preferred tasks. progressing Goal:: Pt will increase AROM of R shoulder by 10 degrees or more in order to maximize I in preferred tasks. progressing Goal:: Pt will report increase in independence during preferred daily task (cooking, washing hair, transfer plate from microwave, etc.), requiring no more than min A for maximized independence with preferred tasks. progressing Anticipated Interventions Anticipated Interventions Anticipated Interventions: A/AAROM/PROM, Strengthening, Massage, Modalities, Joint Protection/Energy Conservation, Fine Motor Coord/Mandeep, Neuro Reeducation, ADL Training and Home Program Re-Evaluation Ending Re-evaluation ending: Please do not hesitate to contact me at [phone] by phone or if you have questions or concerns regarding this new plan of care! Sincerely, Jalyn Reinoso
--- NOTE | 2025-06-16 11:11 | HP.OTREVAL ---
Re-Evaluation Intro: JUAN F Huerta, It has been my pleasure to treat WALDO MURRAY over the last 19 visits for Acute R hemiparesis; physical debility. Please see the progress note below for an update on the occupational therapy plan of care! Subjective Subjective: pt arrives doing well overall states he has been working out at home just gets tired often. reports he was able to tie shoes on own for first time yesterday! Objective Objective/Function: pt does demonstrate gains made in shoulder ROM as well as RUE strength and functional use of UE. reporting being able to tie shoes first first time yesterdays date. pt would benefit from continues OT services for progression of ROM and strength as well as to assure training in HEP program in prep for discharge from services. bicep: 17.6# tricep: 20.6# shoulder: unable to measure using fet peak force 06/16/25: R guide domestic tour 22# L 100# R lateral pinch 8# L 20# R tripod pinch 5# L 20# 06/16/25: 75 degrees activates shoulder abduction versus shoulder flexion from 55 degrees Plan Plan Frequency: 2x /Week Duration: 4 Weeks Visits in this POC: 8 Plan: Continue POC: 4 weeks (2x a week) if insurance allows currently at 19 of 20 visits -- looking into getting more Goals Goals Patient Goals: Regain Mobility, Regain Strength, Improve Fine Motor Skills, Increase ROM, Be More Independent in ADLS, Resume Former Household Responsibilities (Cooking,Cleaning,Yard, etc.) and Resume Hobbies Goal:: Pt will increase RUE strength of shoulder, bicep and tricep by 5# or more in order to maximize I in preferred tasks. 06/16/25: bicep: 17.6# tricep: 20.6# shoulder: unable to measure using fet peak force Pt will increase R hand and pinch strength by 2# or more in order to maximize I in preferred tasks. 06/16/25: R guide domestic tour 22# L 100# R lateral pinch 8# L 20# R tripod pinch 5# L 20# Goal:: Pt will increase AROM of R shoulder by 10 degrees or more in order to maximize I in preferred tasks. progressing 06/16/25: 75 degrees activates shoulder abduction versus shoulder flexion from 55 degrees Goal:: Pt will report increase in independence during preferred daily task (cooking, washing hair, transfer plate from microwave, etc.), requiring no more than min A for maximized independence with preferred tasks. 06/16/25: mod a for light IADL tasks Anticipated Interventions Anticipated Interventions Anticipated Interventions: A/AAROM/PROM, Strengthening, Massage, Modalities, Joint Protection/Energy Conservation, Fine Motor Coord/Mandeep, Neuro Reeducation, ADL Training and Home Program Re-Evaluation Ending Re-evaluation ending: Please do not hesitate to contact me at [phone] by phone or if you have questions or concerns regarding this new plan of care! Sincerely, Jalyn Reinoso
--- NOTE | 2025-06-16 11:39 | HP.PTREVAL ---
Re-Evaluation Intro: JUAN F Huerta, It has been my pleasure to treat WALDO MURRAY over the last 16 visits for CVA. Please see the progress note below for an update on the physical therapy plan of care! Subjective Subjective: Pt reports that he wants to be able to walk without the cane. He does have a KAFO for hyperextension of R knee but he will not wear it because it is hard to put on and wear. He is starting to walk a few steps at home without the cane. He has the hospital van that drives him here. Pt wants to drive. He feels the weight machines are helping a lot but he is not completely indep in getting on and off the machines Objective Objective/Function: Walk around the dept with [facility] with increase in speed and control (4 min 9 seconds with several times he stops for a few seconds) LE MMT: R hip flexion 11.6 and L 20.6 R knee ext 26.1 and L 37.5 R knee flexion 12.3 and L 17.7 R ankle DF 14.1 and L 25 R hip add 8.1 and L 16.8 R hip abd 19.4 and L 21.3) Tinetti: 16 stairs: up and down stairs with 1 hand rail with step 2 pattern Plan Plan Plan: 1X/ week to work on getting on and off machines on own and gain some strengthening to be mod indep with wifes help at community center to work out twice a week Balance/Gait/Functional tests Balance/Special Test Scores % Disability: 100 CATSIB Score (Max score 120 seconds): 35 Tinetti Balance Score: 12 Tinetti Gait Score: 4 Tinetti Balance & Gait Score: 16 Lower Extremity Functional Score: 33 Goals Goals Goal 1:: I HEP Goal Time Frame: 8-12 Weeks Goal 2:: Pt to be able to get up using least mat table/chair to help him get up from the floor with CGA/Mario Goal Time Frame: 8-12 Weeks Goal Progress: Goal Met Goal 3:: Increase balance (tinetti was 14) Goal Time Frame: 8-12 Weeks Goal Progress: Progressing Goal 4:: Increase LE strength (At the time of the eval: LE MMT: R hip flexion 11.6 and L 20.6 R knee ext 20.1 and L 35 R knee flexion 10.2 and L 17.5 R ankle DF 10.6 and L 21.7 R hip add 8.1 and L 16.8 R hip abd 19.4 and L 21.3) Goal Time Frame: 8-12 Weeks Goal Progress: Progressing Goal 5:: Be able to go up and down the steps with use of 1 hand rail with CGA and good control. Goal Time Frame: 6-8 Weeks Goal Progress: Goal Met Goal 6:: Walk around the dept with [facility] with increase in speed and control (6 min 58 seconds with several times he stops for a few seconds) Goal Time Frame: 6-8 Weeks Goal Progress: Goal Met Anticipated Interventions Anticipated Interventions Patient/Client Instruction: Educate patient on: Condition and Plan of Care For the Purpose of:: To improve muscle performance and motor function, To improve ability to perform ADL's, To increase tolerance to activity/condition/position, To improve performance and independence with ADL's, To improve ability of physical actions for home/community/work/leisure, To improve gait and locomotor functions, To improve endurance, To improve balance and To improve safety with gait Therapeutic Exercise to Include: Strength training, Endurance training, Balance training, Postural training, Flexibilty training, Gait and locomotor training, Neuromotor development, Active ROM and Dynamic Lumbar Stabilization For the Purpose of:: To improve muscle performance and motor function, To improve ability to perform ADL's, To increase tolerance to activity/condition/position, To improve performance and independence with ADL's, To decrease level of supervision to perform tasks, To improve ability of physical actions for home/community/work/leisure, To improve gait and locomotor functions, To increase flexibility/ROM, To improve endurance, To improve balance and To improve safety with gait Functional Training to Include: Gait training For the Purpose of:: To improve gait and locomotor functions and To improve safety with gait Re-Evaluation Ending Re-evaluation ending: Please do not hesitate to contact me at [phone] by phone or if you have questions or concerns regarding this new plan of care! Sincerely, BOZENA Macario
--- NOTE | 2025-07-15 15:19 | HP.PTDCSUM ---
Discharge Summary D/C summary: It has been my pleasure to treat WALDO MURRAY referred by JUAN F Huerta, with the diagnosis of CVA for a total of 20 visit(s). Discharge Date: 07/15/25 Please see the following information for a summary of their discharge status. Subjective Subjective: Pt feels comfortable setting up machines and using his to help him set up the ones he can not. He is still struggling with his R foot somedays working and somedays not working. He is still not driving. Overall Improvement % Improvement: 50 Objective Objective/Function: Gait: pt able to walk with no AD with slower gait. He still has hyperextension of his knee but KAFO is not comfortable for her. Tinetti 18 LE MMT: R hip flexion 11.6 and L 20.6 R knee ext 23 and L 35 R knee flexion 16 and L 17.5 R ankle DF 15 and L 21.7 R hip add 18.5 and L 16.8 R hip abd 19.4 and L 21.3) Goals Goal 1:: I HEP Goal Progress: Goal Met Goal 2:: Pt to be able to get up using least mat table/chair to help him get up from the floor with CGA/Mario Goal Progress: Goal Met Goal 3:: Increase balance (tinetti was 14) Goal Progress: Progressing Goal 4:: Increase LE strength (At the time of the eval: LE MMT: R hip flexion 11.6 and L 20.6 R knee ext 20.1 and L 35 R knee flexion 10.2 and L 17.5 R ankle DF 10.6 and L 21.7 R hip add 8.1 and L 16.8 R hip abd 19.4 and L 21.3) Goal Progress: Progressing Goal 5:: Be able to go up and down the steps with use of 1 hand rail with CGA and good control. Goal Progress: Goal Met Goal 6:: Walk around the dept with [facility] with increase in speed and control (6 min 58 seconds with several times he stops for a few seconds) Goal Progress: Goal Met Plan Plan: DC PT to HEP to be done in the gym and his will help him with some of the set up of exercises. D/C Information Discharge Comments: DC PT to HEP in gym of choice and will help with some indep set up. d/c sentence: If there are questions or concerns regarding this patient's physical therapy, please feel free to call me at [phone]. Thank you for the referral of this patient. Sincerely, Dora Griffith, MPT Balance/Gait/Functional tests Balance/Special Test Scores % Disability: 100 CATSIB Score (Max score 120 seconds): 35 Tinetti Balance Score: 15 Tinetti Gait Score: 3 Tinetti Balance & Gait Score: 18 Lower Extremity Functional Score: 42 Improvement % Improvement: 50
--- NOTE | 2025-07-29 13:58 | HP.OTDCSUM_ITS ---
Discharge Summary D/C Summary: It has been my pleasure to treat WALDO MURRAY under orders from JUAN F Huerta, for the diagnosis of Acute R hemiparesis; physical debility for a total of 4 visit(s). Please see the following information for a summary of their discharge status. Overall Improvement % Improvement: 60 Objective Objective/Function: pt does demonstrate gains made in shoulder ROM as well as RUE strength and functional use of UE. reporting being able to tie shoes first first time yesterdays date. pt would benefit from continues OT services for progression of ROM and strength as well as to assure training in HEP program in prep for discharge from services. bicep: 17.6# tricep: 20.6# shoulder: unable to measure using fet peak force 06/16/25: R clay pigeon loader 22# L 100# R lateral pinch 8# L 20# R tripod pinch 5# L 20# 06/16/25: 75 degrees activates shoulder abduction versus shoulder flexion from 55 degrees Goals Patient Goals: Regain Mobility, Regain Strength, Improve Fine Motor Skills, Increase ROM, Be More Independent in ADLS, Resume Former Household Responsibilities (Cooking,Cleaning,Yard, etc.) and Resume Hobbies Goal:: Pt will increase RUE strength of shoulder, bicep and tricep by 5# or more in order to maximize I in preferred tasks. 06/16/25: bicep: 17.6# tricep: 20.6# shoulder: unable to measure using fet peak force 07/29/25: bicep 30# tricep 29.1# GOAL MET Pt will increase R hand and pinch strength by 2# or more in order to maximize I in preferred tasks. 06/16/25: R clay pigeon loader 22# L 100# R lateral pinch 8# L 20# R tripod pinch 5# L 20# 07/29/25: R clay pigeon loader 25# L 100# R lateral pinch 8# R tripod pinch 7# Goal:: Pt will increase AROM of R shoulder by 10 degrees or more in order to m aximize I in preferred tasks. progressing 06/16/25: 75 degrees activates shoulder abduction versus shoulder flexion from 55 degrees now 110 degrees GOAL MET Goal:: Pt will report increase in independence during preferred daily task (cooking, washing hair, transfer plate from microwave, etc.), requiring no more than min A for maximized independence with preferred tasks. 06/16/25: mod a for light IADL tasks 07/29/25: pt is able to perform all self care tasks on own -- pt reports he is now I in light meal prep tasks Plan Plan: Continue POC: 4 weeks (2x a week) if insurance allows currently at 19 of 20 visits -- looking into getting more D/C Information Discharge Comments: This 65 year old male seen by OT with dx of CVA. pt with progress made in POC with ROM as well as strength pt with increased functional I in self care as well as IADL tasks. pt discharged from OT at this time and plan to go to community center and complete tasks on own pt in agreeance d/c sentence: If there are questions or concerns regarding this patient's occupational therapy, please fell free to call me at [phone]. Thank you for the referral of this patient. Sincerely, Jalyn Reinoso
== END 2025-07-29 19:00 | disposition home or self-care (01) ==
LOC: OT 13:00
PROVIDERS: PCP Internal Medicine; Referring Provider Physician Assistant; Visit Provider Physician Assistant
DX: Z86.73 Personal history of transient ischemic attack (TIA), and cerebral infarction without residual deficits (principal); R53.81 Other malaise; G81.91 Hemiplegia, unspecified affecting right dominant side
CPT/HCPCS: 97110; 97112; 97116; 97162; 97166; 97530

== ENCOUNTER → 2025-07-30 | Outpatient (CLI) | payer OTHER, SELFPAY ==
[2018-10-24 12:28] VITALS: BMI 36.8
[2025-07-30 13:46] LABS: Vitamin D,25 Hydroxy 99.7 ng/mL (30-100)
== END | disposition home or self-care (01) ==
LOC: MTLAB 10:10
PROVIDERS: PCP Internal Medicine; Referring Provider Internal Medicine; Visit Provider Internal Medicine
DX: E55.9 Vitamin D deficiency, unspecified (principal)
CPT/HCPCS: 36415; 82306